=== PATIENT | female | born 1960 | race Caucasian/White ===

== ENCOUNTER → 2021-09-06 15:10 | Outpatient (BNVA) | payer MEDICARE, MEDICAID, SELFPAY | PROVIDERS: PCP Physician Assistant Medical; Referring Provider Physician Assistant Medical; Visit Provider Internal Medicine Cardiovascular Disease | DX: Z45.09 Encounter for adjustment and management of other cardiac device (principal); Z01.810 Encounter for preprocedural cardiovascular examination; I48.92 Unspecified atrial flutter | CPT/HCPCS: 93005; 99202 ==

== ENCOUNTER 2021-10-17 14:03 | Outpatient (REF) | payer MEDICARE, MEDICAID, SELFPAY ==
[2021-10-17 14:50] LABS: COVID-19 Test Negative (Negative); IDNOW Serial# 16C4AD1C
== END 2021-10-17 14:04 | disposition home or self-care (01) ==
LOC: HO.LAB 14:03
PROVIDERS: Visit Provider Internal Medicine
DX: Z20.822 Contact with and (suspected) exposure to COVID-19 (principal)
CPT/HCPCS: 87635; C9803

== ENCOUNTER → 2021-10-23 08:49 | Outpatient (REF) | payer MEDICARE, MEDICAID, SELFPAY ==
--- NOTE | ~2021-10-23 | NM_ITS ---
Lexiscan Myocardial perfusion study Indication: Preoperative cardiovascular evaluation Technique: The patient was brought in for a Lexiscan perfusion study on 10/23/2021 and was injected 0.4 mg of Lexiscan intravenously. Within a minute of this injection 30 mCi of sestamibi was given intravenously. Images were obtained using the SPECT gamma camera interlaced with the gating device. Images were obtained in supine position. Resting perfusion study was performed on 10/31/2021. Patient was administered 30 mCi of sestamibi intravenously at rest. Images were then obtained in supine position. Total DLP 94mGy-cm. Images were processed with the software and compared side to side in short axis, horizontal long axis and vertical long axis views. Findings: Raw acquisition was reviewed. The stress perfusion study showed diminished tracer uptake in the mid to distal inferior/inferolateral wall. Basal septum. With CT attenuation correction, inferior defect appears to be still present but a bit more distal in the inferior wall. The gated study shows normal LV systolic function with calculated LVEF of 64%. LV cavity is normal in size. The gated study shows normal wall thickening and contraction of segments. Resting study shows diminished tracer uptake in the mid inferior/inferolateral wall. This seems improved with CT attenuation correction but there is a distal inferolateral defect noted. Gating at rest reveals normal wall motion with ejection fraction at 66%. The findings are consistent with fixed defect in the mid to distal inferior/inferolateral wall.. NM/NM jay perf SPECT rest & str Impression: 1. Myocardial perfusion imaging study shows fixed mid to distal inferior/inferolateral defect. Possibly artifactual as the gating appears unremarkable. 2. Gated LVEF is 64% during stress and 66% during rest. 3. Transient ischemic dilatation not present. EKG component of the test reported separately.
--- NOTE | 2021-10-23 08:53 | CA_ITS ---
Acquisition Time: 2021-10-23 09:00:14 Total Exercise Time: 00:02:00 Test Indications: Abnormal ECG Medications: ELIQUIS OMEPRAZOLE Protocol: LEXISCAN Max HR: 093 BPM 58% of Pred: 160 BPM Max BP: 132/074 mmHG Max Work Load: 1.0 METS Pharmacological stress test with Lexiscan injection while sitting and moving left arm, without anginal symptoms, with isolated PAC, with normotensive response to injection, with nondiagnostic EKG for ischemia. In recovery she reported lightheadedness and shortness of breath which was treated with Aminophylline 75 mg IVP to reverse Lexiscan with resolution of symptoms. Nuclear images pending. Test reviewed with Dr Young. Referred By: Kulwinder Young Overread By: KEILA MARQUEZ
== END ==
LOC: HO.CARD 08:49
PROVIDERS: Visit Provider Internal Medicine Cardiovascular Disease
DX: Z01.810 Encounter for preprocedural cardiovascular examination (principal); Z79.02 Long term (current) use of antithrombotics/antiplatelets; Z79.899 Other long term (current) drug therapy
CPT/HCPCS: 78452; 93017; A9500; J0280; J2785

== ENCOUNTER → 2021-11-10 09:32 | Outpatient (BNVA) | payer MEDICARE, MEDICAID, SELFPAY | PROVIDERS: PCP Physician Assistant Medical; Referring Provider Physician Assistant Medical; Visit Provider Internal Medicine Cardiovascular Disease | DX: Z45.09 Encounter for adjustment and management of other cardiac device (principal) | CPT/HCPCS: 99212 ==

== ENCOUNTER 2021-11-28 13:47 | Emergency (ER) | payer MEDICARE, MEDICAID, SELFPAY | END 2021-11-28 16:21 | disposition left against medical advice (07) | PROVIDERS: Emergency Provider Emergency Medicine | DX: R10.9 Unspecified abdominal pain (principal) ==

== ENCOUNTER 2022-03-20 13:12 | Outpatient (REF) | payer MEDICARE, MEDICAID, SELFPAY ==
[2022-03-20 16:25] LABS: Basophils Absolute Auto 0.1 X10*3/uL (0.0-0.2); Basophils Percent Auto 0.6 % (0-2); Eosinophils Absolute Auto 0.3 X10*3/uL (0.0-0.4); Eosinophils Percent Auto 3.9 % (0-4); Hematocrit 39.1 % (37.0-47.0); Imm Gran Abs Auto 0.02 X10*3/uL (0.00-0.03); Imm Gran Pct Auto 0.2 % (0.0-0.4); Lymphocytes Absolute Auto 3.2 X10*3/uL (1.2-4.9); Lymphocytes Percent Auto 38.4 % (20-40); MANUAL DIFF FLAG NO; Mean Corpuscular HGB Conc 30.7 g/dl (31.0-35.0); Mean Corpuscular Hemoglobin 26.7 pg (27.0-33.0); Mean Corpuscular Volume 86.9 fL (80.0-98.0); Mean Platelet Volume 10.2 fL (9.4-12.3); Monocytes Absolute Auto 0.8 X10*3/uL (0.1-1.2); Monocytes Percent Auto 10.2 % (2-11); Neutrophils Absolute Auto 3.8 x10*3/uL (2.0-8.3); Neutrophils Percent Auto 46.7 % (45-73); Platelet Count 286 X10*3/uL (160-400); Red Cell Distribution Width 14.6 % (11.0-16.0); White Blood Count 8.2 X10*3/uL (4.8-10.8)
[2022-03-20 17:21] LABS: Erythrocyte Sedimentation Rate 17 MM/HR (0-20)
[2022-03-20 17:52] LABS: C Reactive Protein 0.24 mg/dL (< or = 0.50)
== END 2022-03-20 13:13 | disposition home or self-care (01) ==
LOC: HO.HMGCLNP 13:12
PROVIDERS: Visit Provider Internal Medicine Infectious Disease
DX: M00.9 Pyogenic arthritis, unspecified (principal)
CPT/HCPCS: 85025; 85652; 86140

== ENCOUNTER → 2023-01-17 14:30 | Outpatient (BNVA) | payer MEDICARE, MEDICAID, SELFPAY | PROVIDERS: Visit Provider Internal Medicine Cardiovascular Disease | DX: I48.92 Unspecified atrial flutter (principal); I45.6 Pre-excitation syndrome; F17.210 Nicotine dependence, cigarettes, uncomplicated; Z95.818 Presence of other cardiac implants and grafts | CPT/HCPCS: 93005; 99212 ==

== ENCOUNTER 2023-07-24 12:44 | Outpatient (REF) | payer MEDICARE, MEDICAID, SELFPAY ==
--- NOTE | 2023-07-24 16:27 | MHC.AU.HAS ---
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 Moderate sensorineural hearing loss in the left ear. Summary: Laura visited the office today for an audiologic evaluation. She reported that she has been experiencing difficulty with her hearing for about a year now. She frequently has to ask for people to repeat what they said, has a lot of trouble in background noise, and has to turn up the volume on her TV. Given the results of today's testing and the difficulties that Laura has been experiencing, hearing aids were recommended and Laura would like to pursue them. Laura is interested in the option of streaming to her aids through Bluetooth and has an Android phone. We decided on a pair of Phonak Audeo L70-R hearing aids in [place] with 2M receivers. We will request medical clearance from Laura's PCP prior to placing the order and will contact Laura to set up a fitting appointment once the aids arrive. She was encouraged to reach out with any questions she might have in the mean time. Hearing Aid Prescription: Based on the individual?s shared listening needs, communication environments, dexterity, desire for connectivity, and personal preferences, the following prescription for amplification has been made: Right ear: Quantitative Software Engineer: Phonak Model: Audeo L70-R Battery Size: Rechargeable Color: Sand Beige Wrapper Sheeter: 2M Type of Dome: Medium Vented Left ear: Left ear prescription to be same as Right Hearing Aid above: Quantitative Software Engineer: Phonak Model: Audeo L70-R Battery Size: Rechargeable Color: Sand Beige Wrapper Sheeter: 2M Type of Dome: Medium Vented Plan of Care: Patient wishes to purchase hearing aids as prescribed Action Taken/Action Needed: Medical Clearance to be requested from PCP/ENT Hearing Instrument Fitting to be scheduled when materials arrive Primary Diagnosis: H90.A22 SNHL, Unilatearl, Left Ear, W/Restricted Contralateral Hearing Secondary Diagnosis: Signature: Student/Clinical Fellow: Yes: Vladimir Valenzuela, HIS Professor Of French I have reviewed/agreed with student/fellow documentation: Yes Provider: Alina Doll, [facility]
--- NOTE | 2023-07-24 16:29 | MHC.AU.MED ---
Medical Clearance for Hearing Instrumentation Date: 07/24/23 Patient Name: Laura Hickman Date of : 1960 Referring Provider: HELEN Ram We have seen your patient on 07/24/23 and have determined that they are a candidate for amplification (See accompanying report). Specifically, they would benefit from: Hearing aid use in both ears There is a statute that addresses Medical Evaluation Requirements prior to fitting a patient with a hearing aid. According to [place] statute [facility] CMR:6.03(1), (a) General. Except as provided in 265 CMR 6.03(1)(b), a specialty cook shall not sell a hearing aid unless the prospective user has presented to the specialty cook a written statement signed by a licensed physician that states that the patient's hearing loss has been medically evaluated and the patient may be considered a candidate for a hearing aid. The medical evaluation must have taken place within the preceding six months. Please note: Due to the [place] Statute referenced above, we cannot accept a signature other than that of a licensed physician. TOBIAS and HELEN signatures cannot be accepted. I am in agreement with the above recommendation. There is no medical contraindication for hearing instrumentation. Physician Signature Date Physician Name (Printed)
== END 2023-07-24 12:45 | disposition home or self-care (01) ==
LOC: HO.SH 12:44
PROVIDERS: Visit Provider Physician Assistant
DX: Z01.118 Encounter for examination of ears and hearing with other abnormal findings (principal); H90.A22 Sensorineural hearing loss, unilateral, left ear, with restricted hearing on the contralateral side
CPT/HCPCS: 92557; 92567; 92591

== ENCOUNTER 2023-09-06 13:51 | Outpatient (REF) | payer MEDICARE, MEDICAID, SELFPAY ==
--- NOTE | 2023-09-06 14:48 | MHC.AU.HA2 ---
Hearing Instrument Fitting- Adult- Binaural Date of Visit: 09/06/23 Hearing Instruments Dispensed: Right Ear: Kg, Model, Color, Serial Number: Kimi Barksdale L70-R Regina Bloom [id number] Program Control Analyst Repair Warranty: 11/02/2026 Program Control Analyst Loss and Damage Warranty: 11/02/2026 [facility] Service Plan: Battery Size: Rechargeable Environmental Analyst/Slim Tube: 1M Earmold/Dome/CShell/SlimTip: Small Vented Type of Wax Guard: cerustop Left Ear: Kg, Model, Color, Serial Number: Kimi Barksdale L70-R Regina Bloom S#[id number] Program Control Analyst Repair Warranty: 11/02/2026 Program Control Analyst Loss and Damage Warranty: 11/02/2026 [facility] Service Plan: Battery Size: Rechargeable Environmental Analyst/Slim Tube: 1M Earmold/Dome/CShell/SlimTip: Small Vented Type of Wax Guard: cerustop Accessories/Assistive Technology: Phonak chemical worker ease [id number] Summary of Fitting: Laura is here for her hearing aid fitting. Reviewed basic use and care, changing domes, insertion/removal. Verified to NAL-NL2 real ear targets, reduced to 85% exp level as she was uncomfortable with the sound of her own voice. VC active, reviewed how to use. Will pair with phone at follow up visit. Follow up scheduled for 2-3 wks. Recommendations: Recommendations: A hearing instrument follow-up was scheduled. Diagnosis Code(s): Primary Diagnosis: H90.3 Bilateral Sensorineural Hearing Loss Signature: Provider: Genesis Drew, [facility]
== END 2023-09-06 13:52 | disposition home or self-care (01) ==
LOC: HO.HAP 13:51
PROVIDERS: Visit Provider Internal Medicine
DX: Z46.1 Encounter for fitting and adjustment of hearing aid (principal); H90.3 Sensorineural hearing loss, bilateral
CPT/HCPCS: V5011; V5020; V5160; V5261

== ENCOUNTER 2023-12-12 09:20 | Outpatient (REF) | payer MEDICARE, MEDICAID, SELFPAY ==
--- NOTE | ~2023-12-12 | XR_ITS ---
EXAM: X-RAYS, BILATERAL KNEES CLINICAL INFORMATION: Pain in bilateral knees. COMPARISON: None available. TECHNIQUE: 3 views of each knee. FINDINGS: RIGHT KNEE: The bones are diffusely demineralized. Trace suprapatellar effusion. Yulziaiy-kd-qrjoyi degenerative changes in the medial compartment with joint space narrowing and medial marginal osteophytes as well as subchondral sclerosis. Small lateral and posterior patellar osteophytes. LEFT KNEE: No significant joint effusion. Bones are diffusely demineralized. Eeuefwal-jl-slhpfz medial compartment space narrowing with subchondral sclerosis. Small tricompartmental osteophytes. XR/XR knee RT 3V IMPRESSION: Zcuybaxn-vu-iqiorn degenerative changes bilateral knees, most notable in the medial compartments.
--- NOTE | ~2023-12-12 | XR_ITS ---
EXAM: X-RAYS, BILATERAL KNEES CLINICAL INFORMATION: Pain in bilateral knees. COMPARISON: None available. TECHNIQUE: 3 views of each knee. FINDINGS: RIGHT KNEE: The bones are diffusely demineralized. Trace suprapatellar effusion. Bmfhakre-no-smenfz degenerative changes in the medial compartment with joint space narrowing and medial marginal osteophytes as well as subchondral sclerosis. Small lateral and posterior patellar osteophytes. LEFT KNEE: No significant joint effusion. Bones are diffusely demineralized. Udbogrqk-lo-xnhfon medial compartment space narrowing with subchondral sclerosis. Small tricompartmental osteophytes. XR/XR knee LT 3V IMPRESSION: Xfudscgf-kb-tmkomh degenerative changes bilateral knees, most notable in the medial compartments.
== END 2023-12-12 09:21 | disposition home or self-care (01) ==
LOC: HO.HOSX 09:20
PROVIDERS: Visit Provider Orthopaedic Surgery
DX: M17.0 Bilateral primary osteoarthritis of knee (principal)
CPT/HCPCS: 73562; 99202

== ENCOUNTER 2023-12-12 12:50 | Outpatient (AMB) | payer MEDICARE, MEDICAID, SELFPAY ==
[2023-12-12 12:51] VITALS: BMI 35.8
--- NOTE | 2023-12-12 12:51 | A.OFFVIS_ITS ---
Intake Vital Signs 12/12/23 12:51 Height 5 ft 3 in Weight 202 lb BMI 35.8 Intake Visit Reasons: Bilateral knee pain Intake Note: Laura is a 63 year old female who presents with bilateral knee pains, right greater than left. The patient describes her pain as sharp and severe in nature, 8/10. Her pain has gotten worse over the last few years in spite of continued non operative treatments. She has had both cortisone injections and viscosupplementation injections which gave her minimal relief. The patient has tried Tylenol which gives her minimal relief. She has not able to take anti- inflammatory medicines because she is on Eliquis. She has done physical therapy exercises which aggravated her pain. The patient has difficulty walking even short distances because of her pains. At this point her right knee pain is interfering with her activities of daily living and ability to sleep well through the night. Allergies pravastatin Allergy (Mild, Verified 12/12/23 13:06) rash Medication List - Last Reconciled 12/12/23 by Richie Calero MD acyclovir 400 mg PO DAILY albuterol sulfate 90 mcg/actuation (Ventolin HFA) 0 mcg inhalation apixaban (Eliquis) 5 mg PO BID bupropion HCl 300 mg PO QAM docusate sodium 100 mg PO DAILY fluticasone propionate 110 mcg/actuation (Flovent HFA) 2 puffs inhalation BID gabapentin 600 mg PO TID lamotrigine 200 mg PO DAILY omeprazole 20 mg PO BID oxycodone 15 mg PO Q6H PRN oxycodone ER (OxyContin) 60 mg PO BID pedi multivit 194-kcfz-ksl K1 18 mg iron- 10 mcg (Cerovite Jr) 1 tab PO DAILY sennosides (senna) 8.6 mg PO BID trazodone 100 mg PO BEDTIME PRN zolpidem 10 mg PO BEDTIME PRN PFSH Medical History (Updated 12/12/23 @ 13:23 by Richie Calero MD) Paroxysmal atrial flutter Status post placement of implantable loop recorder WPW (Usoev-Nevciojop-Hfrum syndrome) Surgical History (Updated 12/12/23 @ 13:13 by Vanessa Douglass CMA) History of hip surgery History of hip surgery History of back surgery Hx of neck surgery History of open heart surgery Family History Father HTN (hypertension) Mother HTN (hypertension) Social History (Updated 12/12/23 @ 13:10 by Vanessa Douglass CMA) Patient Tobacco Use Status: Current everyday Tobacco user Current occupational status: disabled Current occupation: Right hand dominate Physical Exam Vital Signs: BMI result Body Mass Index 35.8 Const Other: Well-nourished well-developed very friendly female awake alert and oriented x3 in no acute distress Extrem Other: Bilateral lower extremity examination shows good capillary refill, no skin lesions noted, normal sensation light touch Bilateral knee examination shows minimal effusions, palpable crepitus with range of motion, pain with range of motion, range of motion from -3 degrees to 115 degrees, no instability Results Reviewed Results Reviewed: X-rays of the patient's bilateral knees taken today show end-stage degenerative joint disease with grade 4 [id number]-hg-dtvf arthritis in the medial compartments, subchondral sclerosis, osteophyte formation, no acute bony abnormalities Assessment & Plan Assessment & Plan (1) Arthritis of left knee: Code(s): M17.12 - Unilateral primary osteoarthritis, left knee (2) Arthritis of right knee: Code(s): M17.11 - Unilateral primary osteoarthritis, right knee (3) Pain in both knees: Code(s): M25.561 - Pain in right knee; M25.562 - Pain in left knee Plan Ms. Hickman presents with bilateral knee pains, right greater than left, due to end-stage degenerative joint disease. I had a lengthy discussion with the patient regarding the treatment options. At this point she has failed continued non operative treatments. The risks and benefits of right total knee replacement surgery were discussed at length with the patient. The patient wishes to proceed with surgery. She will be scheduled for next available date. If her left knee pain does become more severe than is her right at the time of her surgery we could certainly proceed with left total knee replacement surgery 1st. I will see the patient back just prior to her surgery to answer any final questions that she might have. The patient will follow-up as instructed. I spent 22 minutes in reviewing the patient's records and imaging studies, seeing the patient and documenting in the medical record. Orders: Orders XR knee LT 3V Today M25.562 - Pain in left knee XR knee RT 3V Today M25.561 - Pain in right knee Coding Level of Care Code New Pt Level 2 (49162) Diagnoses Arthritis of left knee M17.12 Arthritis of right knee M17.11 Pain in both knees M25.561; M25.562
== END 2023-12-12 13:23 | disposition home or self-care (01) ==
PROVIDERS: Visit Provider Orthopaedic Surgery
DX: M17.0 Bilateral primary osteoarthritis of knee (principal)
CPT/HCPCS: 99202

== ENCOUNTER 2024-05-25 12:56 | Outpatient (AMB) | payer MEDICARE, MEDICAID, SELFPAY ==
--- NOTE | 2024-05-25 12:59 | MHC.OFFVIS ---
Vital Signs 05/25/24 13:00 Height 5 ft 3 in Weight 202 lb BMI 35.8 Intake Visit Reasons: New prob - B/L hip pain Intake Note: Laura is a 64 year old female who presents today for a new problem visit with complaints of bilateral hip pain. Patient was previously seen with Dr. Calero and will be moving forward with Left TKA with him. Patient reports that she has had history of bilateral hip replacements, Left hip pain worse than right. Allergies pravastatin Allergy (Mild, Verified 05/25/24 13:00) rash HPI HPI New prob - B/L hip pain: Details: Laura is a 64 year old female who presents today for a new problem visit with complaints of bilateral hip pain. Patient was previously seen with Dr. Calero and will be moving forward with Left TKA with him. Patient reports that she has had history of bilateral hip replacements, Left hip pain worse than right. [facility] Medical History (Updated 12/12/23 @ 13:23 by Richie Calero MD) Paroxysmal atrial flutter Status post placement of implantable loop recorder WPW (Kcjhy-Eyssupdht-Lomjp syndrome) Surgical History (Updated 05/25/24 @ 13:24 by Sheldon aHdley MD) History of hip surgery History of hip surgery History of back surgery Hx of neck surgery History of open heart surgery Family History Father HTN (hypertension) Mother HTN (hypertension) Social History (Updated 12/12/23 @ 13:10 by Vanessa Douglass CMA) Patient Tobacco Use Status: Current everyday Tobacco user Current occupational status: disabled Current occupation: Right hand dominate Physical Exam Vital Signs: BMI result Body Mass Index 35.8 Extrem Other: + start up pain left thigh. Mild left groin pain Assessment & Plan Assessment & Plan (1) History of hip surgery: Comment: Left Code(s): Z98.890 - Other specified postprocedural states Category: Surgical Plan: Radiographs and labs and will see to review later than the week. Orders: Orders XR pelvis 1-2V 05/25/24 M25.559 - Pain in unspecified hip Erythrocyte Sedimentation Rate 05/25/24 Z98.890 - Other specified postprocedural states C Reactive Protein 05/25/24 Z98.890 - Other specified postprocedural states Coding Level of Care Code Est Pt Level 3 (97018) Diagnoses History of hip surgery Z98.890
[2024-05-25 13:00] VITALS: BMI 35.8
== END 2024-05-25 13:25 | disposition home or self-care (01) ==
PROVIDERS: Visit Provider Orthopaedic Surgery
DX: M25.552 Pain in left hip (principal)
CPT/HCPCS: 99213

== ENCOUNTER 2024-05-25 12:56 | Outpatient (REF) | payer MEDICARE, MEDICAID, SELFPAY | END 2024-05-25 12:57 | disposition home or self-care (01) | LOC: HO.LAB 12:56 | PROVIDERS: PCP Physician Assistant Medical; Visit Provider Orthopaedic Surgery | DX: M25.559 Pain in unspecified hip (principal); Z98.890 Other specified postprocedural states | CPT/HCPCS: 99212 ==

== ENCOUNTER 2024-05-28 14:19 | Outpatient (REF) | payer MEDICARE, MEDICAID, SELFPAY ==
--- NOTE | ~2024-05-28 | XR_ITS ---
EXAMINATION: XR PELVIS CLINICAL INFORMATION: Pain hip COMPARISON: 07/23/2022 TECHNIQUE: 2 AP views of the pelvis. FINDINGS: Redemonstration of bilateral total hip arthroplasties. Hardware appears intact. Alignment maintained. Redemonstration of fixation hardware in the lower lumbar spine. XR/XR pelvis 1-2V IMPRESSION: Redemonstration of bilateral total hip arthroplasties. Hardware appears intact. Alignment maintained. Electronically signed by: Cheyenne Parker MD 06/17/2024 12:23 PM EDT
[2024-05-28 15:35] LABS: C Reactive Protein 1.29 mg/dL (< or = 0.50)
[2024-05-28 15:37] LABS: Erythrocyte Sedimentation Rate 13 MM/HR (0-20)
== END 2024-05-28 14:20 | disposition home or self-care (01) ==
LOC: HO.LAB 14:19
PROVIDERS: PCP Physician Assistant Medical; Visit Provider Orthopaedic Surgery
DX: M25.559 Pain in unspecified hip (principal); Z98.890 Other specified postprocedural states
CPT/HCPCS: 36415; 72170; 85652; 86140

== ENCOUNTER 2024-05-29 12:30 | Outpatient (AMB) | payer MEDICARE, MEDICAID, SELFPAY ==
--- NOTE | 2024-05-29 12:35 | MHC.OFFVIS ---
Intake Visit Reasons: OV B/L hip pain Intake Note: Laura is a 64 year old female who presents today for a follow up of bilateral hip pain. History of bilateral hip replacements, Left hip pain worse than right. Patient reports that her symptoms are about the same with no changes. She is currently being weaned of her Oxycontin and Oxycodone Allergies pravastatin Allergy (Mild, Verified 05/25/24 13:00) rash HPI HPI OV B/L hip pain: Details: Laura comes in today after having got an ESR and a CRP and radiographs. She has a history of 2 hip surgeries most recently last May where she had a revision hip arthroplasty for infection. She states she is doing well for couple of months but over the last several months she started having pretty severe pain that is limiting her function. She can not walk well. She has been seeing Dr. Spence and is tentatively planning on knee replacement surgery. I have been trying to rule out left hip infection prior to sent surgery so there are no unnecessary risks when considering knee arthroplasty. She denies fevers and chills but her CRP was elevated significantly and her ESR was normal. [facility] Medical History (Updated 05/29/24 @ 14:15 by Sheldon Hadley MD) Paroxysmal atrial flutter Status post placement of implantable loop recorder WPW (Dpmcr-Etugkxkmt-Sqwij syndrome) Surgical History (Updated 05/29/24 @ 14:15 by Sheldon Hadley MD) History of hip surgery History of hip surgery History of back surgery Hx of neck surgery History of open heart surgery Family History Father HTN (hypertension) Mother HTN (hypertension) Social History (Updated 12/12/23 @ 13:10 by Vanessa Douglass CMA) Patient Tobacco Use Status: Current everyday Tobacco user Current occupational status: disabled Current occupation: Right hand dominate Physical Exam Extrem Other: There is tenderness over the greater trochanter and pain with impingement testing with a antalgic gait. She does have bilateral knee pain as well. There is no pain with gentle passive range of motion of the hip Results Reviewed Results Reviewed: ESR: 13 wnl CRP: 1.29 (nl<.5) Radiographs demonstrate left total hip arthroplasty in appropriate position with no evidence of osteolysis or loosening. 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 She has an elevated CRP and pain. I recommend hip aspiration. I discussed this with her as well as the procedure and the risks, benefits and alternatives. She would like to proceed forward. I think it is reasonable to get her started on physical therapy as well. (2) Status post bilateral total hip replacement: Code(s): Z96.643 - Presence of artificial hip joint, bilateral Category: Surgical Plan: Orders: Orders PT Evaluation and Treatment Today M76.32 - Iliotibial band syndrome, left leg, Z96.643 - Presence of artificial hip joint, bilateral Coding Level of Care Code Est Pt Level 4 (46060) Diagnoses History of hip surgery Z98.890 Status post bilateral total hip replacement Z96.643
== END 2024-05-29 12:54 | disposition home or self-care (01) ==
PROVIDERS: Visit Provider Orthopaedic Surgery
DX: M25.452 Effusion, left hip (principal); Z96.643 Presence of artificial hip joint, bilateral
CPT/HCPCS: 99214

== ENCOUNTER → 2024-05-29 12:30 | Outpatient (BNVA) | payer MEDICARE, MEDICAID, SELFPAY | PROVIDERS: Visit Provider Orthopaedic Surgery | DX: M25.551 Pain in right hip (principal); M25.552 Pain in left hip; Z96.643 Presence of artificial hip joint, bilateral | CPT/HCPCS: 99212 ==

== ENCOUNTER 2024-06-04 15:05 | Outpatient (AMB) | payer MEDICARE, MEDICAID, SELFPAY ==
--- NOTE | 2024-06-04 15:06 | A.OFFVIS_ITS ---
Intake Visit Reasons: OV - B/L knee Pain Intake Note: Laura is a 63 year old female who presents with bilateral knee pains, right greater than left. The patient describes her pain as sharp and severe in nature, 8/10. Her pain has gotten worse over the last few years in spite of continued non operative treatments. She has had both cortisone injections and viscosupplementation injections which gave her minimal relief. The patient has tried Tylenol which gives her minimal relief. She has not able to take anti- inflammatory medicines because she is on Eliquis. She has done physical therapy exercises which aggravated her pain. The patient has difficulty walking even short distances because of her pains. At this point her right knee pain is interfering with her activities of daily living and ability to sleep well through the night. Allergies pravastatin Allergy (Mild, Verified 06/04/24 15:07) rash Medication List - Last Reconciled 06/04/24 by Richie Calero MD acyclovir 400 mg PO DAILY albuterol sulfate 90 mcg/actuation (Ventolin HFA) 0 mcg inhalation apixaban (Eliquis) 5 mg PO BID bupropion HCl XL 300 mg PO QAM celecoxib 200 mg PO DAILY docusate sodium 100 mg PO DAILY fluticasone propionate 110 mcg/actuation (Flovent HFA) 2 puffs inhalation BID lamotrigine 200 mg PO DAILY melatonin 3 mg PO QPM omeprazole 20 mg PO BID oxycodone 15 mg PO Q6H PRN oxycodone ER (OxyContin) 30 mg PO BID oxycodone ER (OxyContin) 30 mg PO BID pedi multivit [id number]-oti K1 18 mg iron- 10 mcg (Cerovite Jr) 1 tab PO DAILY rosuvastatin 10 mg PO BEDTIME sennosides (senna) 8.6 mg PO BID terbinafine HCl 250 mg PO DAILY tizanidine 4 mg PO BID trazodone 100 mg PO BEDTIME PRN zolpidem 10 mg PO BEDTIME PRN PFSH Medical History Paroxysmal atrial flutter Status post placement of implantable loop recorder WPW (Nhkvv-Osjoxdmwe-Prhxq syndrome) Surgical History History of hip surgery History of hip surgery History of back surgery Hx of neck surgery History of open heart surgery Family History Father HTN (hypertension) Mother HTN (hypertension) Social History Patient Tobacco Use Status: Current everyday Tobacco user Current occupational status: disabled Current occupation: Right hand dominate Physical Exam Const Other: Well-nourished well-developed very friendly female awake alert and oriented x3 in no acute distress Extrem Other: Bilateral lower extremity examination shows good capillary refill, no skin lesions noted, normal sensation light touch Right knee examination shows a minimal effusion, palpable crepitus with range of motion, pain with range of motion, range of motion from -3 degrees to 115 degrees, no instability Results Reviewed Results Reviewed: X-rays of the patient's right knee show end-stage degenerative joint disease with grade 4 snco-fk-kajy arthritis, subchondral sclerosis, osteophyte formation, no acute bony abnormalities Assessment & Plan Assessment & Plan (1) Arthritis of right knee: Code(s): M17.11 - Unilateral primary osteoarthritis, right knee Category: Medical Plan Ms. Hickman presents with progressively worsening right knee pain due to end- stage degenerative joint disease. I had a lengthy discussion with the patient regarding the treatment options. At this point she appears to be failing continued non operative treatments. The risks and benefits of right total knee replacement surgery were discussed at length with the patient. The patient wishes to proceed with surgery. She will contact my office to pick a surgery date. I will see her back 1 week prior to her surgery to answer any final questions that she might have. She will follow-up as instructed. I spent 22 minutes in reviewing the patient's records and imaging studies, seeing the patient and documenting in the medical record. Coding Level of Care Code Est Pt Level 3 (26226) Complex EM visit Add On G2211 Diagnoses Arthritis of right knee M17.11
== END 2024-06-04 15:22 | disposition home or self-care (01) ==
PROVIDERS: Visit Provider Orthopaedic Surgery
DX: M17.11 Unilateral primary osteoarthritis, right knee (principal)
CPT/HCPCS: 99214; G2211

== ENCOUNTER → 2024-06-04 15:05 | Outpatient (BNVA) | payer MEDICARE, MEDICAID, SELFPAY | PROVIDERS: Visit Provider Orthopaedic Surgery | DX: M17.11 Unilateral primary osteoarthritis, right knee (principal); M25.562 Pain in left knee | CPT/HCPCS: 99212 ==

== ENCOUNTER 2024-06-10 13:41 | Day surgery (SDC) | payer MEDICARE, MEDICAID, SELFPAY ==
--- NOTE | 2024-06-09 10:51 | P.CONAN_ITS ---
HPI - Anesthesia Eval Consult details Narrative: 64yo F for Left Hip Aspiration Follows [facility] Cardiology yearly for PAF, WPW. ILR in situ Last office visit 2022, stable Eliquis for afib PMFSH Active Problems Active Problems: All Active Problems Iliotibial band syndrome, left leg (Acute) Status post bilateral total hip replacement (Acute) History of hip surgery (Acute) History of hip surgery (Acute) Arthritis of right knee (Acute) Arthritis of left knee (Acute) Right knee pain (Acute) Left knee pain (Acute) Paroxysmal atrial flutter (Acute) Status post placement of implantable loop recorder (Acute) Past Medical History Medical History Paroxysmal atrial flutter Status post placement of implantable loop recorder WPW (Bvrfj-Qzsqtvhxv-Otxcu syndrome) Family History Family History Father HTN (hypertension) Mother HTN (hypertension) Surgical History Surgical History History of hip surgery History of hip surgery History of back surgery Hx of neck surgery History of open heart surgery Social History Social History Patient Tobacco Use Status: Current everyday Tobacco user Current occupational status: disabled Current occupation: Right hand dominate Meds Allergies Allergy/AdvReac Type Severity Reaction Status Date / Time pravastatin Allergy Mild rash Verified 06/04/24 15:07 Home Medications ?Medication ?Instructions ?Recorded ?Confirmed ?Last Taken ?Type acyclovir 400 mg tablet 400 mg PO DAILY 09/06/21 06/04/24 Unknown History apixaban 5 mg tablet (Eliquis) 5 mg PO BID 09/06/21 06/04/24 Unknown History bupropion HCl 300 mg 24 hr tablet, 300 mg PO QAM 09/06/21 06/04/24 Unknown History extended release docusate sodium 100 mg capsule 100 mg PO DAILY 09/06/21 06/04/24 Unknown History lamotrigine 200 mg tablet 200 mg PO DAILY 09/06/21 06/04/24 Unknown History omeprazole 20 mg tablet,delayed 20 mg PO BID 09/06/21 06/04/24 Unknown History release pediatric multivit no.158-iron fum 1 tab PO DAILY 09/06/21 06/04/24 Unknown History 18 mg-vit K1 10 mcg chewable tablet (Cerovite Jr) sennosides 8.6 mg capsule (senna) 8.6 mg PO BID 09/06/21 06/04/24 Unknown History trazodone 100 mg tablet 100 mg PO BEDTIME PRN 09/06/21 06/04/24 Unknown History zolpidem 10 mg tablet 10 mg PO BEDTIME PRN 09/06/21 06/04/24 Unknown History oxycodone 15 mg tablet 15 mg PO Q6H PRN pain 11/10/21 06/04/24 Unknown History albuterol sulfate 90 mcg/actuation 0 mcg inhalation 01/17/23 06/04/24 Unknown History aerosol inhaler (Ventolin HFA) fluticasone propionate 110 2 puff inhalation BID 01/17/23 06/04/24 Unknown History mcg/actuation HFA aerosol inhaler (Flovent HFA) celecoxib 200 mg capsule 200 mg PO DAILY 06/04/24 06/04/24 Unknown History melatonin 3 mg tablet 3 mg PO QPM 06/04/24 06/04/24 Unknown History oxycodone 30 mg tablet,crush 30 mg PO BID 06/04/24 06/04/24 Unknown History resistant,extended release 12 hr (OxyContin) oxycodone 60 mg tablet,crush 30 mg PO BID 06/04/24 06/04/24 Unknown History resistant,extended release 12 hr (OxyContin) rosuvastatin 10 mg tablet 10 mg PO BEDTIME 06/04/24 06/04/24 Unknown History terbinafine HCl 250 mg tablet 250 mg PO DAILY 06/04/24 06/04/24 Unknown History tizanidine 4 mg tablet 4 mg PO BID 06/04/24 06/04/24 Unknown History Exam Narrative Narrative: EKG 2022 normal sinus rhythm with sinus arrhythmia with no pre-excitation Assessment and Plan Assessment Anesthesia Assessment: Chart Reviewed
--- NOTE | ~2024-06-10 | FL_ITS ---
EXAMINATION: FLUOROSCOPY GUIDANCE FOR NEEDLE PLACEMENT CLINICAL INFORMATION: Left hip aspiration. COMPARISON: None available. TECHNIQUE: Fluoroscopy and spot films were provided to Dr. Sheldon Hadley during a hip aspiration. FINDINGS: Total hip prosthesis is visualized. A needle is positioned over the hip joint. FLUOROSCOPY TIME: 1. 0.1 minute DOSE AREA PRODUCT: 0.0774 uGy-m2 (microgray-meter squared) FL/FL guidance in OR IMPRESSION: Fluoroscopy-guided left total hip arthroplasty. Electronically signed by: Marcos Rosenberg MD 06/11/2024 09:16 AM EDT
--- OUTSIDE RECORDS SUMMARY | 2024-06-10 13:44 | XMS_ITS | Continuity of Care Document ---
Author Organization [facility] Address [address] [place] [address] [address]orene packer, [address] [place] [address]- Care Team Providers Care Automobile Repair Service Estimator Name Role Phone Maria R MATT, Luis Miguel Primary Care Physician Encounter [facility] [place] Date(s): 05/09/23 - 06/08/[address], [address] [place], [place] [address] Allergies, Adverse Reactions, Alerts Substance Reaction Severity Status pravastatin rash Active Immunizations Given and Recorded Vaccine Date Status Refusal Reason pneumococcal 23-valent vaccine 08/17/14 Given Medications acetaminophen-HYDROcodone 325 mg-5 mg oral tablet 1 tablet, By Mouth, Every 6 hours, PRN Pain , Severe, For breakthrough pain, # 30 tablet, 0 Refills, Maintenance, 04/08/18 9:23:42 EDT, Tablet Start Date: 04/08/18 Status: Ordered Acyclovir Tablet 400 mg, By Mouth, Daily, Maintenance, 05/22/12 13:37:53 EDT Start Date: 05/22/12 Status: Ordered Ambien 10 mg oral tablet 1 tablet = 10 mg, By Mouth, Daily at bedtime, PRN for sleep, 0 Refills, Maintenance, Tablet Start Date: 05/22/12 Status: Ordered Aspirin Tablet 81 mg, By Mouth, Daily, Refills 0, Maintenance, 05/24/16 14:43:40 Start Date: 05/24/16 Status: Ordered Calcium 500+D 1 tablet, By Mouth, 2 times a day, 0 Refills, Maintenance, 05/24/16 14:41:04 Start Date: 05/24/16 Status: Ordered docusate sodium 100 mg oral capsule 1 capsule = 100 mg, By Mouth, 2 times a day, # 60 capsule, 0 Refills, Maintenance, 11/30/14 14:07:07, Capsule Start Date: 11/30/14 Status: Ordered Eliquis 5 mg oral tablet 1 tablet = 5 mg, By Mouth, 2 times a day, # 60 tablet, 0 Refills, Maintenance, 03/27/18 8:44:49 EDT, Tablet Start Date: 03/27/18 Status: Ordered Flovent HFA 110 mcg/inh inhalation aerosol with adapter 1 PUFF, Inhalation, 2 times a day, PRN Wheezing/Shortness of Breath, 0 Refills, Maintenance, 08/12/12 8:39:37 Start Date: 08/12/12 Status: Ordered gabapentin 300 mg oral capsule = 600 mg, By Mouth, 2 times a day, 0 Refills, Maintenance, 08/12/12 8:36:10 EST Start Date: 08/12/12 Status: Ordered gabapentin 600 mg oral tablet 2 TABS, By Mouth, Daily at bedtime, 0 Refills, Maintenance, 05/24/16 14:36:45 Start Date: 05/24/16 Status: Ordered Multivitamin 1 tablet, By Mouth, Daily, 0 Refills, Maintenance Start Date: 05/22/12 Status: Ordered Nitrofurantoin 100 mg, By Mouth, Daily, PRN, Maintenance, Other, 05/24/16 14:39:11 Start Date: 05/24/16 Status: Ordered omeprazole 20 mg oral enteric coated capsule 1 capsule = 20 mg, By Mouth, Daily, 0 Refills, Maintenance, 06/08/14 15:16:46 Start Date: 06/08/14 Status: Ordered oxycodone 15 mg oral tablet 1 tablet = 15 mg, By Mouth, 4 times a day, PRN for pain, 0 Refills, Maintenance, 08/16/14 8:17:37, Tablet Start Date: 08/16/14 Status: Ordered OxyContin = 60 mg, By Mouth, Every 8 hours, 0 Refills, Maintenance, 05/24/16 14:29:07 Start Date: 05/24/16 Status: Ordered ProAir HFA 2 puffs, Inhalation, 4 times a day, 0 Refills, Maintenance Start Date: 08/12/12 Status: Ordered Provera 10 mg oral tablet 10 mg, 1, tablet, By Mouth, Daily, Refills 0, Maintenance, 05/24/16 14:37:44 Start Date: 05/24/16 Status: Ordered tiZANidine 2 mg oral tablet 2 mg, By Mouth, 3 times a day, PRN, # 30 tablet, Refills 0, Tot. Refills 0, Maintenance, Spasm, 04/08/18 9:14:56 EDT, Print Requisition Start Date: 04/08/18 Status: Ordered traZODone 100 mg oral tablet 2 tablets, By Mouth, Daily at bedtime, Refills 0, Maintenance, 05/24/16 14:40:37 EDT Start Date: 05/24/16 Status: Ordered Wellbutrin XL 300 mg/24 hours oral tablet, extended release 1 tablet = 300 mg, By Mouth, Every 24 hours, 0 Refills, Maintenance, 03/27/18 11:25:55 EDT Start Date: 03/27/18 Status: Ordered Problem List Condition Confirmation Course Effective Dates Status Health St atus Informant Atrial flutter Confirmed Active Gallstone Confirmed Active Obesity Confirmed Active Severe obesity (BMI 35.0-39.9) with comorbidity Confirmed Active Social History Social History Type Response Smoking Status Current every day cabrera fox; Type: Cigarettes; Tobacco use times per day: <1/2 pack per day; Number of years: 40; entered on: 08/16/14 Sex Patient Care team information Care Team Personnel Name: Ortega Scott RN Position: [facility] Nurse Member Role: Primary Care Nurse Care Team Related Persons Name: KAT LERNER Address: home [address] [place] [id number] Name: LENY THIBODEAUX Address: home [address] [place] [id number]
--- OUTSIDE RECORDS SUMMARY | 2024-06-10 13:44 | XMS_ITS | Continuity of Care Document ---
Author Organization [facility] Address [address] [place] [address] Dorene packer, [address] [place] [address]- Care Team Providers Care Property Loss Insurance Claim Adjuster Name Role Phone Hosea Enamorado Primary Care Physician Encounter [facility] Date(s): 08/06/23 - 09/05/[address], [address] [place], [place] [address] Allergies, Adverse Reactions, Alerts Substance Reaction Severity Status pravastatin rash Active Immunizations Given and Recorded Vaccine Date Status Refusal Reason pneumococcal 23-valent vaccine 08/17/14 Given Medications Acyclovir Tablet 400 mg, By Mouth, Daily, Maintenance, 05/22/12 13:37:53 EDT Start Date: 05/22/12 Status: Ordered Ambien 10 mg oral tablet 1 tablet = 10 mg, By Mouth, Daily at bedtime, PRN for sleep, 0 Refills, Maintenance, Tablet Start Date: 05/22/12 Status: Ordered Calcium 500+D 1 tablet, By Mouth, 2 times a day, 0 Refills, Maintenance, 05/24/16 14:41:04 Start Date: 05/24/16 Status: Ordered celecoxib 200 mg oral capsule 0 Refills, Maintenance, 07/30/23 14:04:00 EDT, Partial fill upon patient request if the prescription is for a schedule II opioid drug. Start Date: 07/30/23 Status: Ordered docusate sodium 100 mg oral [...] 8:36:10 EST Start Date: 08/12/12 Status: Ordered Melatonin By Mouth, Daily at bedtime, 0 Refills, Maintenance, 08/14/23 17:18:00 EST, Partial fill upon patient request if the prescription is for a schedule II opioid drug. Start Date: 08/14/23 Status: Ordered Multivitamin 1 tablet, By Mouth, [...] Refills, Maintenance Start Date: 08/12/12 Status: Ordered Senna By Mouth, Every other day, 0 Refills, Maintenance, 08/14/23 17:17:00 EST, Partial fill upon patientrequest if the prescription is for a schedule II opioid drug. Start Date: 08/14/23 Status: Ordered traZODone 100 mg oral tablet [...] [facility] at[facility] Informant Atrial flutter Confirmed Active COPD (chronic obstructive pulmonary disease) Confirmed Active Depression Confirmed Active Gallstone Confirmed Active H/O migraine Confirmed Active Obesity Confirmed Active Severe obesity (BMI 35.0-39.9) with comorbidity Confirmed Active Lumbar spinal stenosis Confirmed Active WPW (Sttpn-Ahcmmnyin-Hn ite syndrome)s/p sternotomy ablation Confirmed Active Social History Social History Type Response Smoking Status 5-9 cigarettes (betw een 1/4 to 1/2 pack)/day in last 30 days entered on: 07/30/23 Sex Patient Care team information Care Team Personnel Name: Ortega Scott RN Position: [facility] Nurse Member Role: Primary Care Nurse Name: Hosea Enamorado Position: Reference Physician Member Role: PCP Address: Address: [address] [place] [phone]- Care Team Related Persons Name: KAT LERNER Address: home [address] [place] [address] Name: LENY THIBODEAUX Address: home [address] [place] [id number]
--- OUTSIDE RECORDS SUMMARY | 2024-06-10 13:44 | XMS_ITS | Continuity of Care Document ---
Author Organization [facility] Address [address] [place] [address] [address]orene packer, [address] [place] [address]- Care Team Providers Care Power Saw Mechanic Name Role Phone Hosea Enamorado Primary Care Physician Encounter [facility] Date(s): 08/12/23 - 09/11/[address], [address] [place], [place] [address] Allergies, Adverse Reactions, Alerts Substance [...] Active Lumbar spinal stenosis Confirmed Active WPW (Wdmui-Kxqalfiaq-Sd ite syndrome)s/p sternotomy ablation Confirmed Active Social History Social History Type Response Smoking Status 5-9 cigarettes (betw een 1/4 to 1/2 pack)/day in last 30 days entered on: 07/30/23 Sex Patient Care team information Care Team Personnel Name: Ortega Scott RN Position: [facility] Nurse Member Role: Primary Care Nurse Name: Hosea Enamorado Position: Reference Physician Member Role: PCP Address: Address: [address] [place] [phone]- Care Team Related Persons Name: KAT LERNER Address: home [address] [place] [address] Name: LENY THIBODEAUX Address: home [address] [place] [address]
--- OUTSIDE RECORDS SUMMARY | 2024-06-10 13:44 | XMS_ITS | Continuity of Care Document ---
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 There was no radiologist in attendance. FLUOROSCOPY TIME: 1 second EXPOSURE: 1.51 mGy (reference air kerma) TECHNOLOGIST TIME: 15 minutes FINDINGS: Lateral fluoroscopic views of the lumbar spine with surgical instruments overlying the L3-L4 level.L4-L5 posterior spinal fusion hardware is noted. IMPRESSION: See above. WSN: [id number] Ordering Physician: Dami Stuart Dictated By: Crispin Rai MD Dictated Date/Time: 08/19/23 4:35 pm Reviewed By: Crispin Rai MD Signed By: Crispin Rai MD Signed Date/Time: 08/19/23 4:35 pm Transcribed By: MINGO Transcribed Date/Time: 08/19/23 4:35 pm * Exam Date Time Procedure Performing Provider Status 08/19/23 11:40 AM Spine Single View Abbey Chaudhry; Vanesa (Verified) Notes: (Spine Single View) Reason For Exam: L3-L4 decompression; stenosis RESULT: Spine Single View Spine Single View, C-Arm < 1 Hour INDICATION: Reason: L3-L4 decompression; stenosis COMPARISONS: None TECHNIQUE: Fluoroscopy support was provided. There was no radiologist in attendance. FLUOROSCOPY TIME: 1 second EXPOSURE: 1.51 mGy (reference air kerma) TECHNOLOGIST TIME: 15 minutes FINDINGS: Lateral fluoroscopic views of the lumbar spine with surgical instruments overlying the L3-L4 level.L4-L5 posterior spinal fusion hardware is noted. IMPRESSION: See above. WSN: [id number] Ordering Physician: Dami Stuart Dictated By: Crispin Rai MD Dictated Date/Time: 08/19/23 4:35 pm Reviewed By: Crispin Rai MD Signed By: Crispin Rai MD Signed Date/Time: 08/19/23 4:35 pm Transcribed By: MINGO Transcribed Date/Time: 08/19/23 4:35 pm Vital Signs Most recent to oldest [Reference Range]: 1 2 3 Height 160.02 cm (08/19/23 10:42 AM) 160.02 cm (08/14/23 5:30 PM) Weight 91.82 kg (08/19/23 10:42 AM) 91.82 kg (08/14/23 5:30 PM) Oxygen Saturation [94-100 %] 94 % (08/19/23 4:15 PM) 92 % *L* (08/19/23 3:00 PM) 96 % (08/19/23 2:45 PM) Pulse Rate [55-90 bpm] 84 bpm (08/19/23 10:42 AM) Body Mass Index [18.5-24.99 kg/m2] 35.86 kg/m2 *>HHI* (08/19/23 10:42 AM) 35.86 kg/m2 *>HHI* (08/14/23 5:30 PM) Blood Pressure [90-138/55-84 mm Hg] 107/65mm Hg (08/19/23 4:15 PM) 102/65mm Hg (08/19/23 2:45 PM) 107/65mm Hg (08/19/23 2:30 PM) Respiratory Rate [16-30 br/min] 14 br/min *L* (08/19/23 4:15 PM) 10 br/min *L* (08/19/23 3:00 PM) 14 br/min *L* (08/19/23 2:45 PM) Temperature [96.8-100.4 DegF] 98.4 DegF (08/19/23 4:15 PM) 97.9 DegF (08/19/23 12:00 PM) 97.6 DegF (08/19/23 10:42 AM) Liters per Minute 6 L/min (08/19/23 12:00 PM) Mode of Delivery (Oxygen) Room air (08/19/23 4:15 PM) Room air (08/19/23 2:45 PM) Room air (08/19/23 2:41 PM) Blood pressure sites Arm, left (08/19/23 1:15 PM) Arm, left (08/19/23 12:00 PM) Arm, left (08/19/23 10:42 AM) Temperature Route Temporal (08/19/23 4:15 PM) Temporal (08/19/23 12:00 PM) Temporal (08/19/23 10:42 AM) Dry Weight 92.4 kg (08/19/23 10:42 AM) 91.82 kg (08/14/23 5:30 PM) Weight Obtained Via Patient/family state d (08/14/23 5:30 PM) Dry Weight Obtained Via Standing scale (08/19/23 10:42 AM) Patient/family stated (08/14/23 5:30 PM) Social History Social History Type Response Smoking Status 5-9 cigarettes (betw een 1/4 to 1/2 pack)/day in last 30 days entered on: 07/30/23 Sex Note * Abbey Ferro RN: PERFORM Event Display: Discharge/Transfer Note Hospital Authored Date: [id number] Nursing Discharge Note Entered On: 08/19/2023 16:34 EST Performed On: 08/19/2023 16:34 EST by Abbey Ferro RN Nursing Discharge Note 2 Discharge Time : 08/19/2023 16:33 EST Discharge Level of Care at Discharge : Home/[facility] Patient Left Unit Via : Wheelchair Patient Accompanied Off Unit with : Responsible adult DC Instructions Provided & Signed by Pt : Yes Patient Understands D/C Instructions : Yes Patient Instructions Discharge Signed : Yes Did Pt have Specialty Bed or Wound Vac : No Abbey Ferro RN - 08/19/2023 16:34 EST * Willam Siddiqi: PERFORM, SIGN, VERIFY Event Display: Discharge/Transfer Note Hospital Authored Date: [id number] Patient: YARITZA COREY Age: 63 years Sex: Female : 1960 Associated Diagnoses: None Author: Willam Siddiqi Discharge Information PREOPERATIVE DIAGNOSIS: Lumbar stenosis. POSTOPERATIVE DIAGNOSIS: Same. PROCEDURES PERFORMED: L3-L4 decompression, bilateral. Patient is aware of diagnosis Discharge condition: good Compared to admission: unchanged Functional Status: ambulatory with assistance Discharge Disposition Home: self care, family. Discharge Date 08/19/2023 Admission Date 08/19/2023 Draft of Summary Completed by: Willam Siddiqi. Hospital Course This is a 63-year-old female who was found to have lumbar stenosis at L3-L4. The patient was elected to undergo L4-L5 decompression. The patient tolerated procedure well. Postoperatively, the patient's pain was well controlled. The patient successfully voided and ambulated. The patient was under pain contract with her PCP. The patient was currently on OxyContin 40 mg 3 times a day and oxycodone 15 mg 4 times a day. The patient explained that her primary source for the pain medication was her PCP. In order to maintain her pain contract, we agreed with the patient contacting her PCP for further need of pain medication. Discharge instructions were provided. The plan is to go home today. Discharge Plan Diet/Activity/Patient Education/Follow Up Follow Up with: ; Dami Stuart Please contact the office to confirm your follow-up appointment.. Discharge Disposition Discharge: home. MEDICATION LIST (Selected) Documented Medications Documented Acyclovir Tablet: 400 mg, By Mouth, Daily, Maintenance, 05/22/12 13:37:53 EDT Ambien 10 mg oral tablet: 1 tablet = 10 mg, By Mouth, Daily at bedtime, PRN for sleep, 0 Refills, Maintenance, Tablet Calcium 500+D: 1 tablet, By Mouth, 2 times a day, 0 Refills, Maintenance, 05/24/16 14:41:04 Eliquis 5 mg oral tablet: 1 tablet = 5 mg, By Mouth, 2 times a day, # 60 tablet, 0 Refills, Maintenance, 03/27/18 8:44:49 EDT, Tablet Flovent HFA 110 mcg/inh inhalation aerosol with adapter: 1 PUFF, Inhalation, 2 times a day, PRN Wheezing/Shortness of Breath, 0 Refills, Maintenance, 08/12/12 8:39:37 Melatonin: By Mouth, Daily at bedtime, 0 Refills, Maintenance, 08/14/23 17:18:00 EST, Partial fill upon patient request if the prescription is for a schedule II opioid drug. Multivitamin: 1 tablet, By Mouth, Daily, 0 Refills, Maintenance Nitrofurantoin: 100 mg, By Mouth, Daily, PRN, Maintenance, Other, 05/24/16 14:39:11 OxyContin: = 60 mg, By Mouth, Every 8 hours, 0 Refills, Maintenance, 05/24/16 14:29:07 ProAir HFA: 2 puffs, Inhalation, 4 times a day, 0 Refills, Maintenance Senna: By Mouth, Every other day, 0 Refills, Maintenance, 08/14/23 17:17:00 EST, Partial fill upon patient request if the prescription is for a schedule II opioid drug. Wellbutrin XL 300 mg/24 hours oral tablet, extended release: 1 tablet = 300 mg, By Mouth, Every 24 hours, 0 Refills, Maintenance, 03/27/18 11:25:55 EDT celecoxib 200 mg oral capsule: 0 Refills, Maintenance, 07/30/23 14:04:00 EDT, Partial fill upon patient request if the prescription is for a schedule II opioid drug. gabapentin 300 mg oral capsule: = 600 mg, By Mouth, 2 times a day, 0 Refills, Maintenance, 128:36:10 EST omeprazole 20 mg oral enteric coated capsule: 1 capsule = 20 mg, By Mouth, Daily, 0 Refills, Maintenance, 06/08/14 15:16:46 oxycodone 15 mg oral tablet: 1 tablet = 15 mg, By Mouth, 4 times a day, PRN for pain, 0 Refills, Maintenance, 08/16/14 8:17:37, Tablet traZODone 100 mg oral tablet: 2 tablets, By Mouth, Daily at bedtime, Refills 0, Maintenance, 05/24/16 14:40:37 EDT * Abbey Ferro RN: PERFORM, MODIFY Event Display: Patient Education/Instruction Authored Date: [id number] Inpatient Adult Discharge Instructions [address] [address] Name: YARITZA COREY : 1960 Visit: 08/19/2023 09:13:00 Current Date: 08/19/2023 15:56 Account: [id number] Inpatient Adult Discharge Instructions We would like to thank you for allowing us to assist you with your healthcare needs. The following includes patient education materials and information regarding your injury/illness. Our entire staffstrives to provide an excellent experience for our patients and their families. PLEASE ENSURE YOU FOLLOW-UP PER THE INSTRUCTIONS BELOW! ?? YOUR OPINION IS IMPORTANT TO US! Please complete the survey you may receive by mail or email. Your feedback will be used to make improvements to the healthcare experiences of our patients and their families. Surveys are administered by [employer] ?? If further treatment with your primary care physician or another doctor is recommended, it is important for you to keep the appointment. Call your primary care physician or return to the Emergency Department immediately if your condition worsens, fails to improve, or new symptoms develop. If you need to find a doctor, you can call [facility] Link for a referral at [phone] or toll free at [phone] ([phone]) or log in to [email or web address].. ?? [facility], in keeping with [facility] guidance, no longer requires face masks for staff, patientsor visitors in most situations. Similiar to time spent indoors at other locations, there is the chance that you were exposed to repiratory viruses during your time with us (such as flu or COVID-19). If you develop symptoms concerning for a viral respiratory infection, please seek testing (and treatment if indicated) from your medical provider or home test kit. ?? You can view and manage your care through the patient portal or by using a health care daija of your choosing. [employer] is a website that allows you to securely view your medical information including your hospital discharge summary, office visit summaries, medications and follow-up visits. You can also request appointments, renew medications, and request access to your medical information using a health care daija of your choosing, or just ask a question. You can enroll at [email or web address] or register during your next office visit. You have been discharged from [facility], Patient Care Unit: [facility]. If you have any questions regarding these instructions after you leave, please call us and we will be happy to assist you. [facility] Your Care Team Attending Physician Dami Stuart MD Discharging Providers Willam Siddiqi Reason for Admission [facility] INPT OR Tests Performed Below is a partial list of the tests performed during your hospitalization. You may have had other tests and procedures not included in this list. Please discuss all test results with your provider. XR C-Arm < 1 Hour?-- Results Pending -- You will be contacted within 72 hours with your results. Primary Care Provider Hosea Enamorado Advance Directive Health Care Proxy on File Yes - Health Care Proxy Discharge Vitals Temperature: 97.9 DegF Height: 160.02 cm Pulse Rate: 84 bpm Weight: 91.82 kg Respiratory Rate:??10 br/min??Low Body Mass Index:??35.86 kg/m2??Critical Systolic Blood Pressure: 102 mm Hg Body surface area: 2.02 Diastolic Blood Pressure: 65 mm Hg ?? Oxygen Saturation:??92 %??Low ?? Studies Pending All tests and labs ordered during this hospital stay have been completed unless listed below. Please discuss all pending results with your provider listed above in these instructions. ?? C-Arm < 1 Hour Spine Single View What to do next Instructions From Your Doctor Discharge Orders Scheduled Follow-Up Appointments 2022 11:45 AM EST ?? With: Dami Stuart MD Where: [facility] [address] [place] [address] Drive [address] [place] [address]- Status: Pending You Need to Schedule the Following Appointments Follow Up with?Kenny Stuart Why: Please contact the office to confirm your follow-up appointment. Where: [address] [place] [address], [address] [facility] [place] [address]- Business (1) Discharge Medications YARITZA COREY :1960 Visit Date:08/19/2023 Medications: Please continue your medications until treatment is completed or stopped by your provider. Medications not listed below should be discontinued. Discuss any questions related to medications with your provider. What How Much When Instructions Next Dose Unchanged Acyclovir (Acyclovir Tablet) 400 Milligram Oral Daily Resume as prescribed Unchanged Albuterol (ProAir HFA) 2 puff(s) Inhalation 4 times a day Resume as prescribed Unchanged apixaban (Eliquis 5 mg oral tablet) 1 tab(s) Oral Twice a day Resume as prescribed Unchanged BuPROpion (Wellbutrin XL 300 mg/ 24 hours oral tablet, extended release) 1 tab(s) Oral Every 24 hours Resume as prescribed Unchanged Calcium And Vitamin D Combination (Calcium 500+D) 1 tab(s) Oral Twice a day Resume as prescribed Unchanged Celecoxib (celecoxib 200 mg oral capsule) Resume as prescribed Unchanged Docusate (docusate sodium 100 mg oral capsule) 1 capsule Oral Twice a day Resume as prescribed Unchanged Fluticasone (Flovent HFA 110 mcg/ inh inhalation aerosol with adapter) 1 PUFF Inhalation Twice a day as needed for Wheezing/Shortness of Breath Resume as prescribed Unchanged Gabapentin (gabapentin 300 mg oral capsule) 600 Milligram Oral Twice a day Resume as prescribed Unchanged Melatonin Oral Daily at Bedtime Resume as prescribed Unchanged Multivitamin 1 tab(s) Oral Daily Resume as prescribed Unchanged Nitrofurantoin 100 Milligram Oral Daily as needed for Other Resume as prescribed Unchanged Omeprazole (omeprazole 20 mg oral enteric coated capsule) 1 capsule Oral Daily Resume as prescribed Unchanged Oxycodone (oxycodone 15 mg oral tablet) 1 tab(s) Oral 4 times a day as needed for for pain Resume as prescribed Unchanged Oxycodone (OxyContin) 60 Milligram Oral Every 8 hours Resume as prescribed Unchanged Senna Oral Every other day Resume as prescribed Unchanged Trazodone (traZODone 100 mg oral tablet) 2 tablets Oral Daily at Bedtime Resume as prescribed Unchanged Zolpidem (Ambien 10 mg oral tablet) 1 tab(s) Oral Daily at Bedtime as needed for for sleep Resume as prescribed Test Results Below is a partial list of the most recent Laboratory test results done prior to this discharge. You may have had other tests and procedures not included in this list. Please discuss all test resultswith your provider. Allergies (NKA means No Known Allergies) pravastatin??(rash) Problems Active Problems??(14) ADHD?? Atrial flutter?? COPD (chronic obstructive pulmonary disease)?? Depression?? Gallstone?? H/O migraine?? Lumbar disc disease?? Lumbar spinal stenosis?? Obesity?? CHUCKY suspect?? Severe obesity (BMI 35.0-39.9) with comorbidity?? Tobacco abuse?? WPW (Eyffu-Sidjvgeof-Pxcry syndrome)s/p sternotomy ablation?? WPW - s/p sternotomy/ablation?? Education Materials Below is the list of Educational Leaflet Providered with your Discharge Instructions. Neurosurgery-Lumbar Discharge Instructions?? Valuables and Belongings I fully understand and agree that [facility] accepts no responsibility for all my personal property including clothing, toilet articles, radios, jewelry, dentures, hearing aids, rings, money, or any other property that is in my possession or is brought to me after admission. I understand certain valuables may be placed in a hospital safe for a short period of time. I understand that the hospital is not liable for loss or damage due to accident, fire, or other natural occurrence while said property is in the safe. I accept full responsibility for any personal property that I keep with me, and will not hold the hospital responsible in case of loss or disappearance. I acknowledge that i have been encouraged to send valuables and belongings home. ? Other Discharge Information ? Pulmonary Rehab Status?? Pulmonary Rehab Discharge Status?? Respiratory Rate:??10 br/min??Low ? Common Emergency Awareness Tips IS IT A STROKE? Act FAST and Check for these signs: FACE Does the face look uneven? ARM Does one arm drift down? SPEECH Does their speech sound strange? TIME Call at any sign of stroke ?? Heart Attack Signs Chest discomfort: Most heart attacks involve discomfort in the center of the chest and lasts more than a few minutes, or goes away and comes back. It can feel like uncomfortable pressure, squeezing, fullness or pain. Discomfort in upper body: Symptoms can include pain or discomfort in one or both arms, back, neck, jaw or stomach. Shortness of breath: With or without discomfort. Other signs: Breaking out in a cold sweat, nausea, or lightheaded. Remember, MINUTES DO MATTER. If you experience any of these heart attack warning signs, call to get immediate medical attention! ?? Smoking can increase your chances of developing chronic health problems and can cause harmful effects to other family members in your house. If you smoke, you are strongly encouraged to quit. Please call [facility] Link at [phone] or [phone]) or log in to [email or web address] for referrals to smoking cessation programs. ?? 358 Suicide & Crisis Lifeline is available 22/04 if you or someone you know needs to find a reason to keep living. By calling 875 you'll be connected to a skilled, trained counselor at a crisis center in your area. INPATIENT DISCHARGE INSTRUCTIONS SIGNATURE PAGE LEORAYARITZA Location:[facility] Registration Date and Time:08/19/2023 09:13 EST Primary Care Physician: Hosea Enamorado, Attending Physician: Dami Stuart MD, I YARITAZ COREY, have received the above patient education materials/instructions and have verbalized understanding. If ambulance or transport services are being used I further acknowledge being given a choice of service. ?? If you need to contact me, please call me at this number: . Patient/Clearing Distribution Clerk Name: Patient/Clearing Distribution Clerk Signature: Relationship to Patient: Witness Name/Signature: Date: * Willam Siddiqi: PERFORM, SIGN, VERIFY Event Display: Patient Education Handout Authored Date: [id number] * Abbey Ferro RN: PERFORM Event Display: Patient Education Leaflets Authored Date: Surgery Medical Daystay Surgical Overnight Discharge Instructions ?? 295 Medical Daystay/Surgical Overnight Discharge Instructions ? Since your coordination and judgment may be altered by medication and/or anesthesia, a responsible adult must drive you home from the hospital. ? If you have received medication for pain or sedation while under our care, you should not drive, operate machinery, drink alcohol, or sign any legal documents for 24 hours.?? You should have someone with you at home tonight. ? Remain at home the day of discharge.?? You may be up and about unless otherwise instructed by your physician. ? You may resume your daily prescription medication schedule.?? Any depressant medication should be avoided for 24 hours unless otherwise instructed by your surgeon or anesthesiologist. ? Call your physician for a follow-up appointment.? If you experience unusual or severe pain not relied by your pain medication, excessive bleedingor drainage, persistent nausea and vomiting, excessive swelling or redness, foul odor from incisionsite or fever over 100.6F, you need to call your physician. ? A follow-up phone call by a nurse will be made the day after your procedure.?? If you have stayed with us over night, you will not be receiving a follow-up phone call. ? Nausea and vomiting are a common side effect of prescription pain medication.?? We recommend that pills are not taken on an empty stomach.?? While taking any prescription pain medication you should not drive or drink alcohol. ? * Abbey Ferro RN: PERFORM Event Display: Patient Education Leaflets Authored Date: [id number] Surgery Medical Daystay Surgical Overnight Discharge Instructions ?? 295 Medical Daystay/Surgical Overnight Discharge Instructions ? Since your coordination and judgment may be altered by medication and/or anesthesia, a responsible adult must drive you home from the hospital. ? If you have received medication for pain or sedation while under our care, you should not drive, operate machinery, drink alcohol, or sign any legal documents for 24 hours.?? You should have someone with you at home tonight. ? Remain at home the day of discharge.?? You may be up and about unless otherwise instructed by your physician. ? You may resume your daily prescription medication schedule.?? Any depressant medication should be avoided for 24 hours unless otherwise instructed by your surgeon or anesthesiologist. ? Call your physician for a follow-up appointment.? If you experience unusual or severe pain not relied by your pain medication, excessive bleedingor drainage, persistent nausea and vomiting, excessive swelling or redness, foul odor from incisionsite or fever over 100.6F, you need to call your physician. ? A follow-up phone call by a nurse will be made the day after your procedure.?? If you have stayed with us over night, you will not be receiving a follow-up phone call. ? Nausea and vomiting are a common side effect of prescription pain medication.?? We recommend that pills are not taken on an empty stomach.?? While taking any prescription pain medication you should not drive or drink alcohol. ? * Willam Siddiqi: PERFORM Event Display: Patient Education Leaflets Authored Date: [id number] Neurosurgery-Lumbar Discharge Instructions ?? 205 Neurosurgery Discharge Instructions ?? Postoperative instructions vary due to many different types of surgery.?? Your specific needs may require modifications to these instructions by your surgeon. ?? Diet ??? You should resume your usual diet at home unless instructed otherwise ?? Medications ??? You will be provided with a medication reconciliation when you leave the hospital explaining which medications you should continue and which you should stop ??? You may be discharged home with prescriptions with new medications which should be explained to you prior to discharge ?? Bowel Regimen ??? Narcotic pain medications commonly cause constipation ??? You should use an nsuc-iby-nqcqatn stool softener, such as Colace or Senna, for as long as you are experiencing constipation ??? You should use an mjgs-one-yylxtgy oral laxative or rectal suppository if you do not have a bowel movement within 3 days after your surgery ?? Incision and Wound Care ??? You should remove your dressing on the 3rd postoperative day ??? You do not need to apply any other dressing or bandage ??? Do not apply creams, lotions, or ointments to the incision ??? If you have steri-strips, these will fall off on their own ??? * Remove after 2 weeks if they have not fallen off yet ??? If you have annika/sutures, these will be removed at your follow up appointment ??? Yo u should call the office if you experience any of the following: ??? Redness, swelling, or increasing pain/tenderness of the surgical incision site ??? Discharge of pus, blood, or other fluid from the surgical incision site ??? Wound separation ??? Temperature greater than 101.5 F ?? Bathing ??? Do not shower or get your incision wet until the 3rd postoperative day ??? Do not soak the incision in a bath, pool or any other body of water for 4 weeks ??? You should gently pat the incision dry with a towel immediately after bathing ? Activity ??? Do not drive for 2 weeks unless instructed otherwise ??? Do not drive while taking narcotic pain medication or muscle relaxants ??? Do not lift more than 15 to 20 lbs until seen again by your surgeon ??? Do not perform any strenuous activities, exercises or movements until instructed otherwise ??? Do not resume sexual activity until you feel comfortable.?? Do not perform activities or positions that place stress on the operated area ??? _ ??? Call your primary care physician for all questions and problems not related to your surgery, such as chronic medical conditions, e.g., diabetes, hypertension, etc. ??? Call [facility] neurosurgery for any questions or problems related to your surgery??? _ [facility] [address] [place] [address] , [address], [place], [place] [phone] _ ? Patient Care team information Care Team Personnel Name: Ortega Scott RN [facility] Nurse Member Role: Primary Care Nurse Name: Hosea Enamorado Position: Reference Physician Member Role: PCP Address: Address: [address] [place] [address] Care Team Related Persons Name: EDUARDAKAT KIMBALL Address: home [address] [place] [address] Name: LENY THIBODEAUX Address: home [address] [place] [address]
--- OUTSIDE RECORDS SUMMARY | 2024-06-10 13:44 | XMS_ITS | Continuity of Care Document ---
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
--- OUTSIDE RECORDS SUMMARY | 2024-06-10 13:44 | XMS_ITS | Continuity of Care Document ---
Author Organization [facility] Address [address] [place] [address]- Care Team Providers Care Furnace Liner Name Role Phone Hosea Enamorado Primary Care Physician Encounter [facility] Date(s): 08/08/23 - 08/15/23 Pre Op Overflow [address] [place], [place] [address] Attending Physician: Bolivar Joya MD Referring Physician: Dami Stuart MD Allergies, [...] Active Lumbar spinal stenosis Confirmed Active WPW (Hslmm-Byjethpcj-Hk ite syndrome)s/p sternotomy ablation Confirmed Active Procedures Procedure Date Related Diagnosis Body Site Status ILR implantation in 7017, atrial flutter ablation 2016, history of difficult colonoscopy, WPW ablation with open heart surgery sternotomy, tonsillectomy, lap cholecystectomy, cervical disc surgery C5-C7, lumbar L4-L5 surgery, right total hip arthroplas Completed Vital Signs Most recent to oldest [Reference Range]: 1 Height 161 cm (08/08/23 9:14 AM) Weight 95.8 kg (08/08/23 9:14 AM) Oxygen Saturation [94-100 %] 97 % (08/08/23 9:14 AM) Pulse Rate [55-90 bpm] 78 bpm (08/08/23 9:14 AM) Body Mass Index [18.5-24.99 kg/m2] 36.96 kg/m2 *>HHI* (08/08/23 9:14 AM) Blood Pressure [90-138/55-84 mm Hg] 132/ 71mm Hg (08/08/23 9:14 AM) Respiratory Rate [16-30 br/min] 18 br/mi n (08/08/23 9:14 AM) Blood pressure sites Arm, right (08/08/23 9:14 AM) Weight Obtained Via Standing scale (08/08/23 9:14 AM) Social History Social History Type Response Smoking Status 5-9 cigarettes (betw een 1/4 to 1/2 pack)/day in last 30 days entered on: 07/30/23 Sex EKG study * Event Display: ECG 12-Lead Authored Date: Please click on pdf link to open report * Event Display: ECG 12-Lead Authored Date: Ventricular Rate: 76 BPM Atrial Rate: 76 BPM P-R Interval: 148 ms QRS Duration: 102 ms Q-T Interval: 412 ms QTC Calculation(Bazett): 463 ms P Capron: 17 degrees R Capron: 39 degrees T Capron: 62 degrees Normal sinus rhythm Nonspecific T wave abnormality Abnormal ECG When compared with ECG of 18-AUG-2014 11:13, Sinus rhythm has replaced Atrial flutter Vent. rate has decreased BY 45 BPM Minimal criteria for Inferior infarct are no longer Present T wave inversion no longer evident in Inferior leads Confirmed by SAMUEL WINN ([id number]) on 08/09/2023 12:58:36 PM [place]: SAMUEL WINN Patient Care team information Care Team Personnel Name: Ortega Scott RN Position: S AMB Nurse Member Role: Primary Care Nurse Name: Hosea Enamorado Position: Reference Physician Member Role: PCP Address: Address: [address] [place] [address] Care Team Related Persons Name: KAT LERNER Address: home [address] [place] [address] Name: LENY THIBODEAUX Address: home [address] [place] [address]
--- OUTSIDE RECORDS SUMMARY | 2024-06-10 13:44 | XMS_ITS | Continuity of Care Document ---
Author Organization [facility] Address [address] [place] [address] [address], [address] [place] [address]- Care Team Providers Care Crematory Attendant Name Role Phone Hosea Enamorado Primary Care Physician Encounter [facility] Date(s): 09/19/23 - 09/26/[address], [address] [place], [place] [address] Attending Physician: Dami Stuart MD Referring Physician: Hosea Enamorado Allergies, Adverse Reactions, Alerts Substance Reaction Severity [...] opioid drug. Start Date: 08/14/23 Status: Ordered tiZANidine 4 mg oral tablet 4 mg, 1, tablet, By Mouth, Daily at bedtime, # 30 tablet, Refills 0, Tot. Refills 0, Maintenance, 09/19/23 12:02:00 EST, Route to Pharmacy Electronically, [facility] - [place], [place] - [phone], Partial fill upon patient request if the prescri... Start Date: 09/19/23 Stop Date: 10/19/23 Status: Ordered traZODone 100 mg oral tablet [...] Active Lumbar spinal stenosis Confirmed Active WPW (Iuwtf-Icncdeckc-Dn ite syndrome)s/p sternotomy ablation Confirmed Active Vital Signs Most recent to oldest [Reference Range]: 1 Height 160.02 cm (09/19/23 11:15 AM) Weight 91.2 kg (09/19/23 11:15 AM) Body Mass Index [18.5-24.99 kg/m2] 35.62 kg/m2 *>HHI* (09/19/23 11:15 AM) Social History Social History Type Response Smoking Status 5-9 cigarettes (betw een 1/4 to 1/2 pack)/day in last 30 days entered on: 09/19/23 Sex Patient Care team information Care Team Personnel Name: Ortega Scott RN Position: [facility] Nurse Member Role: Primary Care Nurse Name: Hosea Enamorado Position: Reference Physician Member Role: PCP Address: Address: [address] [place] [address] Care Team Related Persons Name: KAT LERNER Address: home [address] [place] [address] Name: LENY THIBODEAUX Address: home [address] [place] [address]
--- OUTSIDE RECORDS SUMMARY | 2024-06-10 13:44 | XMS_ITS | Continuity of Care Document ---
Author Organization [facility] Address [address] [place] [address] [address] packer, [address] [place] [address]- Care Team Providers Care Canal Driver Name Role Phone Hosea Enamorado Primary Care Physician [place] [facility] Date(s): 05/07/24 - 06/06/24 [facility] [address] [place] [address] Drive [address] [place], [place] [address] Allergies, Adverse Reactions, Alerts Substance Reaction [...] 09/19/23 12:02:00 EST, Route to Pharmacy Electronically, [facility] - [place], [place] - [phone], Partial fill upon patient request if the [...] Gallstone Confirmed Active H/O migraine Confirmed Active Obese class I Confirmed Active Obesity Confirmed Active Lumbar spinal stenosis Confirmed Active WPW (Hkzvw-Lngkepwko-Vj ite syndrome)s/p sternotomy ablation Confirmed Active Social History Social History Type Response Smoking Status 5-9 cigarettes (betw een 1/4 to 1/2 pack)/day in last 30 days entered on: 09/19/23 Sex Patient Care team information Care Team Personnel Name: Ortega Scott RN Position: [facility] Nurse Member Role: Primary Care Nurse Name: Hosea Enamorado Position: Reference Physician Member Role: PCP Address: Address: [address] [place] [address] [facility] [place], [place] [address] Care Team Related Persons Name: KAT LERNER Address: home [address] [place] [address] Name: LENY THIBODEAUX Address: home [address] [place] [address]
--- OUTSIDE RECORDS SUMMARY | 2024-06-10 13:44 | XMS_ITS | Continuity of Care Document ---
Author Organization [facility] Address [address] [place] [address] [address]orene packer, [address] [place] [address]- Care Team Providers Care Parallel Computing Software Engineer Name Role Phone Hosea Enamorado Primary Care Physician Encounter [facility] Date(s): 08/21/23 - 09/20/[address], [address] [place], [place] [address] Allergies, Adverse [...] 09/19/23 12:02:00 EST, Route to Pharmacy Electronically, [facility] - [place], [place] - [phone], Partial fill upon patient request if the [...] Active Lumbar spinal stenosis Confirmed Active WPW (Qgqnn-Yzsjkoymt-Rh ite syndrome)s/p sternotomy ablation Confirmed Active Social History Social History Type Response Smoking Status 5-9 cigarettes (betw een 1/4 to 1/2 pack)/day in last 30 days entered on: 09/19/23 Sex Patient Care team information Care Team Personnel Name: Ortega Scott RN Position: S [facility]B Nurse Member Role: Primary Care Nurse Name: Hosea Enamorado Position: Reference Physician Member Role: PCP Address: Address: [address] [place] [address]- Care Team Related Persons Name: KAT LERNER Address: home [address] [place] [address] Name: LENY THIBODEAUX Address: home [address] [place] [address]
--- OUTSIDE RECORDS SUMMARY | 2024-06-10 13:44 | XMS_ITS | Continuity of Care Document ---
Author Organization [facility] Address [address] [place] [address] [address], [address] [place] [address]- Care Team Providers Care Special Librarian Name Role Phone Hosea Enamorado Primary Care Physician ( [phone] Encounter [facility] Date(s): 09/19/23 - 10/19/[address], [address] [place], [place] [address] Attending Physician: Giovanni Holliday Admitting Physician: Giovanni Holliday Referring Physician: AdmtrGiovanni Allergies, Adverse Reactions, Alerts [...] 09/19/23 12:02:00 EST, Route to Pharmacy Electronically, [facility] - [place], [place] - [phone], Partial fill upon patient request if the [...] Active Lumbar spinal stenosis Confirmed Active WPW (Pzfzs-Nnkwmucaq-Kv ite syndrome)s/p sternotomy ablation Confirmed Active Social History Social History Type Response Smoking Status 5-9 cigarettes (betw een 1/4 to 1/2 pack)/day in last 30 days entered on: 09/19/23 Sex Patient Care team information Care Team Personnel Name: Ortega Scott RN Position: [facility] Nurse Member Role: Primary Care Nurse Name: Hosea Enamorado Position: Reference Physician Member Role: PCP Address: Address: [address] [place] [address]- Care Team Related Persons Name: KAT LERNER Address: home [address] [place] [address] Name: LENY THIBODEAUX Address: home [address] [place] [address]
--- OUTSIDE RECORDS SUMMARY | 2024-06-10 13:44 | XMS_ITS | Continuity of Care Document ---
Author Organization [facility] Address [address] [place] [address] [address]orene packer, [address] [place] [address]- Care Team Providers Care Lab Associate Name Role Phone Hosea Enamorado Primary Care Physician Encounter [facility] Date(s): 05/19/24 - 05/26/[address] [place], [place] [address] Attending Physician: Dami Stuart MD Allergies, Adverse Reactions, [...] 09/19/23 12:02:00 EST, Route to Pharmacy Electronically, [facility] - [place], [place] - [phone], Partial fill upon patient request if the [...] Active Lumbar spinal stenosis Confirmed Active WPW (Kzcoq-Uaqvfhisb-Hc ite syndrome)s/p sternotomy ablation Confirmed Active Vital Signs Most recent to oldest [Reference Range]: 1 Height 160 cm (05/19/24 3:40 PM) Weight 86 kg (05/19/24 3:40 PM) Body Mass Index [18.5-24.99 kg/m2] 33.59 kg/m2 *>HHI* (05/19/24 3:40 PM) Social History Social History Type Response Smoking Status 5-9 cigarettes (betw een 1/4 to 1/2 pack)/day in last 30 days entered on: 09/19/23 Sex Patient Care team information Care Team Personnel Name: Ortega Scott RN Position: [facility] Nurse Member Role: Primary Care Nurse Name: Hosea Enamorado Position: Reference Physician Member Role: PCP Address: Address: [address] [place] [address] [place] [address]- Care Team Related Persons Name: KAT LERNER Address: home [address] [place] [address] Name: LENY THIBODEAUX Address: home [address] [place] [address]
--- OUTSIDE RECORDS SUMMARY | 2024-06-10 13:44 | XMS_ITS | Continuity of Care Document ---
Author Organization [facility] Address [address] [place] [address] [address]orene packer, [address] [place] [address]- Care Team Providers Care Director Of Quality Name Role Phone Hosea Enamorado Primary Care Physician ( [phone] Encounter [facility] Date(s): 07/30/23 - 08/06/[address], [address] [place], [place] [address] Attending Physician: Dami Stuart MD Referring Physician: Jorje Cho DO Allergies, Adverse Reactions, Alerts Substance Reaction Severity [...] opioid drug. Start Date: 07/30/23 Status: Ordered diclofenac 1% topical gel 0 Refills, Maintenance, 07/30/23 14:06:00 EDT, Partial fill upon patient request if [...] Atrial flutter Confirmed Active Gallstone Confirmed Active Obese class I Confirmed Active Obesity Confirmed Active Vital Signs Most recent to oldest [Reference Range]: 1 Height 161 cm (07/30/23 1:59 PM) Weight 86.0 kg (07/30/23 1:59 PM) Body Mass Index [18.5-24.99 kg/m2] 33.18 kg/m2 *>HHI* (07/30/23 1:59 PM) Social History Social History Type Response Smoking Status 5-9 cigarettes (betw een 1/4 to 1/2 pack)/day in last 30 days entered on: 07/30/23 Sex Patient Care team information Care Team Personnel Name: Ortega Scott RN Position: [facility] AMB Nurse Member Role: Primary Care Nurse Name: Hosea Enamorado Position: Reference Physician Member Role: PCP Address: Address: [address] [place] [address]- Care Team Related Persons Name: KAT LERNER Address: home [address] [place] [address] Name: LENY THIBODEAUX Address: home [address] [place] [address]
--- OUTSIDE RECORDS SUMMARY | 2024-06-10 13:44 | XMS_ITS | Continuity of Care Document ---
Author Organization [facility] Address [address] [place] [address]- Care Team Providers Care Faucet Polisher Name Role Phone Hosea Enamorado Primary Care Physician Encounter 06/08/24 - 06/09/[address] [address] Attending Physician: Not on Staff, Attending MD Referring Physician: Not on Staff, Referring MD Allergies, Adverse Reactions, Alerts Substance Reaction [...] 09/19/23 12:02:00 EST, Route to Pharmacy Electronically, [facility] - [place], [place] - [phone], Partial fill upon patient request if the [...] Active Lumbar spinal stenosis Confirmed Active WPW (Klzsn-Haqdntyxn-Lw ite syndrome)s/p sternotomy ablation Confirmed Active Social History Social History Type Response Smoking Status 5-9 cigarettes (betw een 1/4 to 1/2 pack)/day in last 30 days entered on: 09/19/23 Sex Patient Care team information Care Team Personnel Name: Ortega Scott RN Position: S [facility]B Nurse Member Role: Primary Care Nurse Name: Hosea Enamorado Position: Reference Physician Member Role: PCP Address: Address: [address] [place] [address] [place] [address]- Care Team Related Persons Name: KAT LERNER Address: home [address] [place] [address] Name: LENY THIBODEAUX Address: home [address] [place] [address]
[2024-06-10 14:06] VITALS: BMI 34.0
--- NOTE | 2024-06-10 14:09 | MHC.SHP ---
Pre-Procedural Eval Section A - 24 Hr Update-Section A only Date of Service: 06/10/24 The patient is an INPATIENT: No Changes since office visit: No Cold of Flu in the past 2 weeks, No New Medical Problems, No Changes in Medication and No Patient answered all questions The patient has been examined within 24 hours of the surgical procedure. The History & Physical has been completed within 30 days and I have reviewed it.: Yes Section B - Complete if H&P > 30 days Chief Complaint: Presence of artificial hip joint, bilateral Allergies: Allergies Allergy/AdvReac Type Severity Reaction Status Date / Time pravastatin Allergy Mild rash Verified 06/10/24 14:08 Plan I have reviewed the history and physical and performed a pertinent physical examination on my patient. No changes have occurred unless specified. Time Spent With Patient Time: Total time managing care of this patient today ____ minutes.
[2024-06-10 14:14] VITALS: BP 135/75; PULSE 77; RESP 16; TEMP 36.5; O2SAT 96
[2024-06-10 14:36] VITALS: BP 128/70; PULSE 77; RESP 20; TEMP 36.2; O2SAT 94
--- NOTE | 2024-06-23 07:06 | P.OP_ITS ---
Operative Note Operative Note Date of Service: 06/10/24 Narrative: Date of Service: 06/10/24 Pre-op diagnosis: S/p left hip arthroplasty Post-op diagnosis: same Procedure: Left hip aspiration Implants: none Surgeon: Sheldon Hadley MD Anesthesia: local Was an Construction Safety Consultant used for this Procedure?: No Estimated blood loss (mL): 0 Pathology: other Condition: stable Disposition: PACU Procedure in detail: Patient was brought to the operating room and placed supine on the surgical table. She was prepped and draped in standard sterile fashion and a time out was called to identify proper site, proper procedure and IV antibiotics per weight were administered. I began by injecting local anesthetic over the anterior hip ( ~3 cm lateral to the illiac artery and 3 cm distal to the ASIS). I injected generously and then placed an 18 g spinal needle into the hip joint using fluoroscopic guidance. I aspirated a sparse of amount of serosanguinous fluid but minimal. I attempted several different areas in the joint and did get a small amount of nl appearing joint fluid. This was sent for culture. The puncture site was covered with a band-aid and the patient was returned to the recovery room in stable condition. there were no known complications.
== END 2024-06-10 14:56 | disposition home or self-care (01) ==
LOC: HO.SSS 13:42
PROVIDERS: PCP Physician Assistant Medical; Visit Provider Orthopaedic Surgery
PROC: (CPT 20610; principal; 2024-06-10 14:50)
DX: M25.552 Pain in left hip (principal); R26.2 Difficulty in walking, not elsewhere classified; R79.82 Elevated C-reactive protein (CRP); Z96.643 Presence of artificial hip joint, bilateral; I48.0 Paroxysmal atrial fibrillation; I45.6 Pre-excitation syndrome; Z95.818 Presence of other cardiac implants and grafts; Z98.890 Other specified postprocedural states; Z88.8 Allergy status to other drugs, medicaments and biological substances; F17.210 Nicotine dependence, cigarettes, uncomplicated
CPT/HCPCS: 20610; 77002; 87070; 87073; 87205; J2795

== ENCOUNTER → 2024-06-10 13:41 | Outpatient (BNV) | payer MEDICARE, MEDICAID, SELFPAY | PROVIDERS: PCP Physician Assistant Medical; Visit Provider Orthopaedic Surgery | DX: M25.452 Effusion, left hip (principal); Z96.642 Presence of left artificial hip joint | CPT/HCPCS: 20610; 77002 ==

== ENCOUNTER 2024-08-12 13:29 | Outpatient (AMB) | payer MEDICARE, MEDICAID, SELFPAY ==
[2024-08-12 13:51] VITALS: BP 110/80; PULSE 70; BMI 33.7
--- NOTE | 2024-08-12 13:51 | MHC.OFFVIS ---
Vital Signs 08/12/24 13:51 Height 5 ft 3 in Weight 190 lb 7.67 oz BMI 33.7 BP 110/80 Blood Pressure Location Lt brachial Position Sitting Pulse 70 Pulse Source Monitor Intake Visit Reasons: prev ns pt/ preop Ruarke/ tka Intake Note: pre-op Ruarke/TKA 10/19/24 Security Control Assessor Required: No Accompanied by: Self / Same As Patient Allergies pravastatin Allergy (Mild, Verified 06/10/24 14:08) rash Medication List - Last Reconciled 08/12/24 by Kulwinder Young MD acyclovir 400 mg PO DAILY albuterol sulfate 90 mcg/actuation (Ventolin HFA) 0 mcg inhalation apixaban (Eliquis) 5 mg PO BID bupropion HCl XL 300 mg PO QAM celecoxib 200 mg PO DAILY docusate sodium 100 mg PO DAILY fluticasone propionate 110 mcg/actuation (Flovent HFA) 2 puffs inhalation BID lamotrigine 200 mg PO DAILY melatonin 3 mg PO QPM omeprazole 20 mg PO BID oxycodone 10 mg PO Q6H PRN oxycodone ER (OxyContin) 30 mg PO BID oxycodone ER (OxyContin) 30 mg PO BID pedi multivit [id number] K1 18 mg iron- 10 mcg (Cerovite Jr) 1 tab PO DAILY rosuvastatin 10 mg PO BEDTIME sennosides (senna) 8.6 mg PO BID terbinafine HCl 250 mg PO DAILY tizanidine 4 mg PO BID trazodone 100 mg PO BEDTIME PRN zolpidem 10 mg PO BEDTIME PRN HPI Comments Details: Laura comes for follow-up of atrial flutter although she tells me that she is planned to undergo knee replacement surgery in near future. She says she has markedly limited with activity level due to bilateral knee issues. Denies any cardiac symptoms although she says she does not do much. She denies any exertional chest pain or shortness of breath. No prolonged palpitation irregular heartbeat. No lightheadedness, syncope. No major bleeding issues or neurologic events. [facility] Medical History Paroxysmal atrial flutter Status post placement of implantable loop recorder WPW (Wtrxo-Uypdgeusq-Kiswb syndrome) Surgical History History of hip surgery History of hip surgery History of back surgery Hx of neck surgery History of open heart surgery Family History Father HTN (hypertension) Mother HTN (hypertension) Social History Patient Tobacco Use Status: Current everyday Tobacco user Tobacco use type: Cigarette Cigarettes Per Day: 5 Current occupational status: disabled Current occupation: Right hand dominate Review of Systems Const Denies chills, Denies fatigue, Denies fever(s), Denies frequent falls, Denies weakness, Denies weight gain and Denies weight loss ENT Denies dizziness Card Denies chest pain, Denies leg edema, Denies lightheadedness, Denies palpitations, Denies dyspnea and Denies dyspnea on exertion Resp Denies cough, Denies dyspnea and Denies dyspnea on exertion GI Denies hematochezia Musc Denies abnormal gait, Denies muscle weakness, Denies numbness, Denies radiating pain into limb and Denies tingling Neuro Denies abnormal gait, Denies dizziness, Denies frequent falls, Denies numbness, Denies tingling and Denies weakness Endo Denies fatigue and Denies palpitations Physical Exam Vital Signs: Last Vital Signs Pulse 70 08/12/24 13:51 BP 110/80 08/12/24 13:51 BMI result Body Mass Index 33.7 Const General: cooperative, comfortable, no acute distress, alert and awake Orientation/consciousness: patient oriented x3 Limitations: ambulation with walker Neck Neck: Yes trachea midline, Yes supple and Yes no JVD Resp Effort & Inspection: normal respiratory effort Auscultation: crackles (Coarse), wheezes and diminished lung sounds Cardio Jugular venous distension: no JVD Palpation: normal PMI Rate: regular rate Rhythm: regular rhythm Heart sounds: S1 normal heart sound present, S2 normal heart sound present, no click, no gallops, no murmurs and no rubs GI Auscultation: normal bowel sounds Skin General skin exam: no rashes or lesions noted Neuro General: patient oriented x3 and no focal motor deficits Extrem General: Yes no clubbing, cyanosis or edema Office Procedures EKG Details: EKG shows normal sinus rhythm with normal EKG 85008-[id number], Complete Assessment & Plan Assessment & Plan (1) Preop cardiovascular exam: Code(s): Z01.810 - Encounter for preprocedural cardiovascular examination Category: Medical Plan: Preoperative cardiovascular risk stratification prior to intermediate risk orthopedic surgery with knee replacement or general anesthesia. Patient was very limited exercise capacity. No obvious cardiac symptoms although given her limited exercise capacity needs further evaluation for risk stratification. Would suggest a vasodilating myocardial perfusion imaging to assess for the same. If this is within normal limits she is optimized to undergo surgery with low risk for perioperative cardiovascular morbidity and mortality. This will be scheduled in very near future. Eliquis can be held for 3 days prior to the procedure and resumed as soon as possible after the procedure with associated thromboembolic risk. (2) Paroxysmal atrial flutter: Comment: As recorded ablation in 2017. Patient denies this. Do not have records about the ablation. reviewed the records on 09/07/2021. Patient atrial flutter ablation done at [facility] in 2017 Code(s): I48.92 - Unspecified atrial flutter Category: Medical Plan: Paroxysmal atrial flutter status post ablation. Has done well overall including ablation for WPW. EKG shows no evidence of preexcitation. No recurrent symptoms suggestive of atrial flutter at this point time. No further pharmacotherapy is recommended to suppress arrhythmia. Continue full oral anticoagulation, currently on Eliquis. Will follow up in the clinic in 1 year's time, sooner p.r.n.. Thank you for allowing me to partake in his care Orders: Orders CA lexiscan stress w jay Today Z01.810 - Encounter for preprocedural cardiovascular examination Coding Level of Care Code Est Pt Level 4 (15453) Complex EM visit Add On G2211 Diagnoses Preop cardiovascular exam Z01.810 Paroxysmal atrial flutter I48.92 CPT Codes EKG - CPT: 54975-Gqorpuqczubortnmy, Complete ([id number])
== END 2024-08-12 14:51 | disposition home or self-care (01) ==
PROVIDERS: PCP Physician Assistant Medical; Visit Provider Internal Medicine Cardiovascular Disease
DX: I48.92 Unspecified atrial flutter (principal); Z01.810 Encounter for preprocedural cardiovascular examination
CPT/HCPCS: 93010; 99214; G2211

== ENCOUNTER → 2024-08-12 13:29 | Outpatient (BNVA) | payer MEDICARE, MEDICAID, SELFPAY | PROVIDERS: PCP Physician Assistant Medical; Visit Provider Internal Medicine Cardiovascular Disease | DX: I48.92 Unspecified atrial flutter (principal); I45.6 Pre-excitation syndrome; Z95.818 Presence of other cardiac implants and grafts | CPT/HCPCS: 93005; 99212 ==

== ENCOUNTER → 2024-08-13 08:09 | Outpatient (REF) | payer MEDICARE, MEDICAID, SELFPAY ==
--- NOTE | ~2024-08-13 | NM_ITS ---
Lexiscan Myocardial perfusion study Indication: Preoperative cardiac evaluation Technique: The patient was brought in for a Lexiscan perfusion study on 08/13/2024 and was injected 0.4 mg of Lexiscan intravenously. Within a minute of this injection 30 mCi of sestamibi was given intravenously. Images were obtained using the SPECT gamma camera interlaced with the gating device. Images were obtained in supine position. Resting perfusion study was performed on 08/17/2024. Patient was administered 30 mCi of sestamibi intravenously at rest. Images were then obtained in supine position. Total DLP 168 mGy-cm. Images were processed with the software and compared side to side in short axis, horizontal long axis and vertical long axis views. Findings: Raw aquisition reviewed. Arms by the patient's side. The stress perfusion study showed decreased tracer uptake in the mid to distal part of inferolateral wall. There is also adjacent subdiaphragmatic tracer uptake. The gated study shows normal LV systolic function with calculated LVEF of 58%. LV cavity is normal in size. The gated study shows diminished contractility in the distal part of the inferolateral wall. Resting study shows reduced tracer uptake in the distal part of inferolateral wall. There is also adjacent subdiaphragmatic tracer uptake. No major change with CT attenuation correction. Gating at rest reveals reduced contractility in the distal part of inferolateral wall. Gated LVEF 57%. The findings are consistent with mixed perfusion defect in the mid to distal part of inferolateral wall. NM/NM cardiolite stress test Impression: 1. Myocardial perfusion imaging study shows mixed perfusion defect in the mid to distal inferolateral wall. Possible ischemia/infarct pattern. Cannot exclude artifactual etiology. 2. Gated LVEF is 58% during stress and 57% during rest. 3. Transient ischemic dilatation not present. EKG component of the test reported separately. Electronically signed by: Shen Merchant MD 08/18/2024 04:07 PM BRAD
--- NOTE | 2024-08-13 08:13 | CA_ITS ---
Acquisition Time: 2024-08-13 08:20:50 Total Exercise Time: 00:02:00 Test Indications: Abnormal ECG AFLUTTER Medications: SEE H Protocol: LEXISCAN Max HR: 095 BPM 60% of Pred: 157 BPM Max BP: 148/070 mmHG Max Work Load: 1.0 METS Pharmacologic Nuclear Stress Test with Lexiscan injection, without any anginal symptoms, without any arrythmia, with normotensive response to the injection. Without EKG changes meeting criteria for ischemia. Reported headache in recovery, not resolved with caffeine; treated with IV Aminophylline 75mg to reverse Lexiscan. Nuclear images pending. Test reviewed with Dr. Mayes. Referred By: Kulwinder Young Overread By: KEILA MARQUEZ
== END ==
LOC: HO.CARD 08:09
PROVIDERS: PCP Physician Assistant Medical; Visit Provider Internal Medicine Cardiovascular Disease
DX: Z01.810 Encounter for preprocedural cardiovascular examination (principal); I48.92 Unspecified atrial flutter
CPT/HCPCS: 78452; 93017; A9500; J0280; J2785

== ENCOUNTER → 2024-08-13 08:13 | Outpatient (BNV) | payer MEDICARE, MEDICAID, SELFPAY | PROVIDERS: PCP Physician Assistant Medical; Visit Provider Nurse Practitioner Family | DX: R94.31 Abnormal electrocardiogram [ECG] [EKG] (principal); I48.92 Unspecified atrial flutter | CPT/HCPCS: 78452; 93016; 93018 ==

== ENCOUNTER → 2024-09-14 09:07 | Outpatient (BNVA) | payer MEDICARE, MEDICAID, SELFPAY | PROVIDERS: PCP Physician Assistant Medical | DX: Z01.818 Encounter for other preprocedural examination (principal) ==

== ENCOUNTER 2024-09-21 | Outpatient (REF) | payer MEDICARE, MEDICAID, SELFPAY ==
[2024-09-21 11:15] VITALS: BP 136/73; PULSE 71; RESP 20; O2SAT 97; BMI 32.8
--- NOTE | 2024-09-21 11:38 | P.CONAN_ITS ---
HPI - Anesthesia Eval Consult details Narrative: Pending reschedule 64yo F for Right Knee Replacement Total, 10/19/23 Productive cough x ~ 1 month (clear phlegm), no fevers (smoker) No CP. 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 Cardiac optimized . Mildly abnormal stress test. Intermediate risk for perioperative cardiovascular morbidity mortality. No change in therapy. Eliquis can be held 3 days prior to the procedure and restarted as soon as possible after surgery with associated risk Eliquis for Afib ? s/p ablation 2017 WPW s/p RFA > 40 years ago Implantable loop recorder in situ Chronic opioids COPD: albuterol ~ 3 x weekly GERD: ppi controls PMFSH Active Problems Active Problems: All Active Problems Preop cardiovascular exam (Acute) Iliotibial band syndrome, left leg (Acute) Status post bilateral total hip replacement (Acute) Arthritis of right knee (Acute) Arthritis of left knee (Acute) Right knee pain (Acute) Left knee pain (Acute) History of hip surgery (Acute) History of hip surgery (Acute) Paroxysmal atrial flutter (Acute) Status post placement of implantable loop recorder (Acute) Past Medical History Medical History (Updated 09/21/24 @ 11:04 by iVvian Portillo RN) Depression Asthma Migraines PVD (peripheral vascular disease) Elevated cholesterol COPD (chronic obstructive pulmonary disease) HTN (hypertension) Arthritis GERD (gastroesophageal reflux disease) Paroxysmal atrial flutter Status post placement of implantable loop recorder WPW (Nlpwy-Sdmuiimft-Yygxv syndrome) Family History Family History Father HTN (hypertension) Mother HTN (hypertension) Family history of problems with anesthesia: No Surgical History Surgical History (Updated 09/21/24 @ 11:08 by Vivian Portillo RN) Hx of cholecystectomy History of cardiac radiofrequency ablation H/O colonoscopy History of hip surgery History of hip surgery History of back surgery Hx of neck surgery History of Problems with Anesthesia: No Social History Social History Are you a primary home health caregiver to a significant other at home: No Do you presently have visiting nurse or other home services: Yes ([employer]) Patient Tobacco Use Status: Current everyday Tobacco user Tobacco use type: Cigarette Cigarettes Per Day: 4 Years Smoked: 49 Use of substances other than those prescribed or required for medical reasons: Yes Substance Use Type Other:: advised to hold 3-5 days pre-op Substance Use Frequency: Daily Have you been hit, kicked, punched, or otherwise hurt by someone within the past year? If so, by whom?: No Spiritual Healthcare Practices: none Hindu Healthcare Practices: none Cultural Healthcare Practices: none Are you DNR?: No Advance Directives: No (son is primary contact) Advance Directives Information Provided: Yes (brochure given) Advance Directives on File: No Recently lost weight without trying: No Eating poorly because of decreased appetite: No Nutrition Risks: No Nutritional Risk FDLMP: n/a Poor oral hygiene: Yes (full upper & lower dentures) Current occupational status: disabled Current occupation: Right hand dominate Meds Allergies Allergy/AdvReac Type Severity Reaction Status Date / Time pravastatin Allergy Mild rash Verified 09/14/24 09:18 Home Medications ?Medication ?Instructions ?Recorded ?Confirmed ?Last Taken ?Type acyclovir 400 mg tablet 400 mg PO DAILY 09/06/21 09/18/24 Unknown History apixaban 5 mg tablet (Eliquis) 5 mg PO BID 09/06/21 09/21/24 Unknown History bupropion HCl 300 mg 24 hr tablet, 300 mg PO QAM 09/06/21 09/21/24 Unknown History extended release docusate sodium 100 mg capsule 100 mg PO DAILY 09/06/21 09/21/24 Unknown History omeprazole 20 mg tablet,delayed 20 mg PO BID 09/06/21 09/21/24 Unknown History release sennosides 8.6 mg capsule (senna) 8.6 mg PO BID 09/06/21 09/21/24 Unknown History trazodone 100 mg tablet 100 mg PO BEDTIME PRN Insomnia 09/06/21 09/21/24 Unknown History zolpidem 10 mg tablet 10 mg PO BEDTIME PRN Insomnia 09/06/21 09/21/24 Unknown History albuterol sulfate 90 mcg/actuation 90 mcg inhalation Q4H PRN 01/17/23 09/18/24 Unknown History aerosol inhaler (Ventolin HFA) Shortness Of Breath Or Wheezing celecoxib 200 mg capsule 200 mg PO DAILY 06/04/24 09/21/24 Unknown History melatonin 3 mg tablet 3 mg PO QPM 06/04/24 09/21/24 Unknown History rosuvastatin 10 mg tablet 10 mg PO BEDTIME 06/04/24 09/21/24 Unknown History terbinafine HCl 250 mg tablet 250 mg PO DAILY 06/04/24 09/21/24 Unknown History tizanidine 4 mg tablet 4 mg PO BID 06/04/24 09/21/24 Unknown History clonazepam 0.5 mg tablet 0.5 mg PO QAM 09/14/24 09/21/24 Unknown History fluticasone propionate 110 1 puff inhalation BID 09/21/24 09/21/24 Unknown History mcg/actuation HFA aerosol inhaler lamotrigine 150 mg tablet 150 mg PO BID 09/21/24 09/21/24 Unknown History oxycodone 10 mg tablet 10 mg PO BID 09/21/24 09/21/24 Unknown History oxycodone 20 mg tablet,crush 20 mg PO BID 09/21/24 09/21/24 Unknown History resistant,extended release 12 hr (OxyContin) Exam Height,Weight and Vital Signs: Height 5 ft 3 in Weight 83.915 kg Last Vital Signs Pulse 71 09/21/24 11:15 Resp 20 09/21/24 11:15 BP 136/73 09/21/24 11:15 Pulse Ox 97 09/21/24 11:15 O2 Del Method Room Air 09/21/24 11:15 Narrative Narrative: EKG 07/2024 Details: EKG shows normal sinus rhythm with normal EKG NM cardiolite stress test 07/2024 Impression: 1. Myocardial perfusion imaging study shows mixed perfusion defect in the mid to distal inferolateral wall. Possible ischemia/infarct pattern. Cannot exclude artifactual etiology. 2. Gated LVEF is 58% during stress and 57% during rest. 3. Transient ischemic dilatation not present. Airway TM Dist: >3cm Neck ROM: Limited (s/p cspine surgery ~ 5 years ago) Denture: Upper Loose/Missing/Broken Teeth: Yes (does not wear lower dentures) Heart: RRR Lungs: CTAB Assessment and Plan Assessment Anesthesia Assessment: Anesthesia Plan Discussed, Smoking Cess. Discussed and PAT Visit Final Anesthetic Review Family History of Problems with Anesthesia: No History of Problems with Anesthesia: No
[2024-09-21 13:36] LABS: MRSA Nasal PCR NEGATIVE (Negative); SA Nasal PCR NEGATIVE (Negative)
== END 2024-09-21 00:01 | disposition home or self-care (01) ==
LOC: HO.PAT
PROVIDERS: Physician Assistant; Admitting Provider Orthopaedic Surgery; PCP Physician Assistant Medical; Visit Provider Orthopaedic Surgery
DX: Z01.818 Encounter for other preprocedural examination (principal); M17.11 Unilateral primary osteoarthritis, right knee
CPT/HCPCS: 87640; 87641

== ENCOUNTER → 2025-02-08 11:28 | Outpatient (BNVA) | payer MEDICARE, MEDICAID, SELFPAY | PROVIDERS: PCP Physician Assistant Medical | DX: Z01.818 Encounter for other preprocedural examination (principal) ==

== ENCOUNTER 2025-03-11 09:51 | Outpatient (AMB) | payer MEDICAID, SELFPAY ==
[2025-03-11 10:03] VITALS: BMI 32.8
--- NOTE | 2025-03-11 10:03 | MHC.OFFVIS ---
Vital Signs 03/11/25 10:03 Height 5 ft 3 in Weight 185 lb BMI 32.8 Intake Visit Reasons: Left knee pain Intake Note: Ms. Hickman presents with complaints of progressively worsening bilateral knee pains, left greater than right. She describes her left knee pain as sharp and severe in nature, 07/09. Her pain has gotten worse over the last few years in spite of continued non operative treatments. She has tried physical therapy which aggravated her pain. She has also tried Tylenol which gives her minimal relief. She is not able to take anti-inflammatory medicines because she is on Eliquis. At this point her left knee pain is interfering with her activities of daily living and her ability to sleep well through the night. The patient has had injections in the past which gave her minimal relief. Allergies pravastatin Allergy (Mild, Verified 03/11/25 10:15) rash Medication List - Last Reconciled 03/11/25 by Richie Calero MD acyclovir 400 mg PO 2XW albuterol sulfate 2.5 mg inhalation Q4H PRN albuterol sulfate 90 mcg/actuation (Ventolin HFA) 90 mcg inhalation Q4H PRN apixaban (Eliquis) 5 mg PO BID buprenorphine 20 mcg/hour 1 patch topical QWEEK bupropion HCl XL 300 mg PO QAM celecoxib 200 mg PO QPM clonazepam 0.5 mg PO QAM docusate sodium 100 mg PO BID fluticasone furoate 100 mcg/actuation (Arnuity Ellipta) 1 inh inhalation QAM lamotrigine 300 mg PO BEDTIME melatonin 3 mg PO BEDTIME omeprazole 20 mg PO QAM rosuvastatin 10 mg PO BEDTIME sennosides (senna) 8.6 mg PO 2XW tizanidine 4 mg PO BID trazodone 100 mg PO BEDTIME walker Folding front wheeled walker zolpidem 10 mg PO BEDTIME [facility] Medical History Depression Asthma Migraines PVD (peripheral vascular disease) Elevated cholesterol COPD (chronic obstructive pulmonary disease) HTN (hypertension) Arthritis GERD (gastroesophageal reflux disease) Paroxysmal atrial flutter Status post placement of implantable loop recorder WPW (Qyrsj-Dhpxeajpf-Legtn syndrome) Surgical History History of hip surgery Hx of cholecystectomy History of cardiac radiofrequency ablation H/O colonoscopy History of hip surgery History of hip surgery History of back surgery Hx of neck surgery Family History Father HTN (hypertension) Mother HTN (hypertension) Social History Housing Other:: mobile home Are you a primary child care specialist to a significant other at home: No Do you presently have 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) Patient Tobacco Use Status: Current everyday Tobacco user Tobacco use type: Cigarette Cigarettes Per Day: 4 Years Smoked: 47 Current occupational status: disabled Current occupation: Right hand dominate Physical Exam Vital Signs: BMI result Body Mass Index 32.8 Const Other: Well-nourished well-developed very friendly female awake alert and oriented x3 in no acute distress Extrem Other: Bilateral lower extremity examination shows good capillary refill, no skin lesions noted, normal sensation light touch Left knee examination shows a minimal effusion, palpable crepitus with range of motion, pain with range of motion, no instability Right knee examination shows a mild effusion, palpable crepitus with range of motion, pain with range of motion, no instability Results Reviewed Results Reviewed: X-rays of the patient's bilateral knee show end-stage degenerative joint disease with grade 4 [id number] arthritis, subchondral sclerosis, osteophyte formation, no acute bony abnormalities Assessment & Plan Assessment & Plan (1) Left knee pain: Code(s): M25.562 - Pain in left knee Category: Medical (2) Arthritis of right knee: Code(s): M17.11 - Unilateral primary osteoarthritis, right knee Category: Medical (3) Arthritis of left knee: Code(s): M17.12 - Unilateral primary osteoarthritis, left knee Category: Medical Plan Ms. Hickman presents with progressively worsening bilateral knee pains, left greater than right, due to end-stage degenerative joint disease. I had a lengthy discussion with the patient regarding the treatment options. At this point she has failed continued non operative treatments. The risks and benefits of left total knee replacement surgery were discussed at length with the patient. The patient wishes to proceed. If her right knee pain does become more bothersome than as her left at the time of her surgery we could certainly proceed with right total knee replacement surgery 1st. [employer] services manager will be consulted following her surgery for home physical therapy and nursing. The patient will follow-up as instructed. Feel free to call me at any time should questions regarding her orthopedic management arise. I spent 22 minutes in reviewing the patient's records and imaging studies, seeing the patient and documenting in the medical record. Orders: Orders Hemoglobin A1c Today Z01.818 - Encounter for other preprocedural examination Coding Level of Care Code Est Pt Level 3 (14635) Complex EM visit Add On G2211 Diagnoses Left knee pain M25.562 Arthritis of right knee M17.11 Arthritis of left knee M17.12
--- OUTSIDE RECORDS SUMMARY | 2025-03-11 11:00 | XMS_ITS | Clinical Summary ---
Author Organization [facility] [address] [place] [address] [address] [place] [address] Phone Care Team Providers Care Fashion Coordinator Name Role Phone Hosea Douglas Primary Care Provider [phone] Allergies Active Allergy Reactions Criticality Noted Date Comments Pravastatin 06/04/2014 Other Reaction(s): Other (See Comments) Skin rash Medications Cerovite Senior tablet Take 1 tablet by mouth 1 (one) time each day. 04/21/20 24 Active UNABLE TO FIND Take 1 tablet by mouth 1 (one) time each day. Calcium Carb-Cholecalci ferol (Calcium Plus Vitamin D) 500-5 MG-MCG Tab 07/02/20 24 Active tiZANidine (ZANAFLEX) 4 mg tablet TAKE 1 TO 2 TABLETS BY MOUTH EVERY NIGHT AT BEDTIME 05/11/20 24 Active melatonin 3 mg tablet Take 1 tablet by mouth every evening 05/20/20 24 Active fluticasone furoate (Arnuity Ellipta) 100 mcg/actuation blister with device inhaler INHALE 1 PUFF BY MOUTH INTO THE lungs ONCE DAILY 05/11/20 24 Active clonazePAM (KlonoPIN) 0.5 mg tablet TAKE 1 OR 2 TABLETS BY MOUTH EVERY MORNING 03/31/20 24 Active nitrofurantoin, macrocrystal-mo nohydrate, (MACROBID) 100 mg capsule Take 1 Capsule by mouth daily as needed (with sexual activity). 04/13/20 24 Active albuterol HFA (PROAIR HFA ; PROVENTIL HFA ; VENTOLIN HFA) 90 mcg/actuation inhaler Inhale 2 Puffs into the lungs every 4 hours as needed for Cough or Wheezing. 04/13/20 24 Active albuterol 2.5 mg /3 mL (0.083 %) nebulizer solution Take 1 Vial by nebulization every 4 hours as needed for Wheezing, Shortness of Breath or Cough. 04/13/20 24 Active senna (SENOKOT) 8.6 mg tablet Take 1 Tablet by mouth three times a week. 08/07/20 23 Active diclofenac (VOLTAREN) 1 % topical gel Apply 4 g topically 4 times daily as needed for Other (arthritis pain). 12/29/19 23 Active traZODone (DESYREL) 100 mg tablet 2-3 tablets, Psychiatry 11/12/19 23 Active zolpidem (AMBIEN) 10 mg tablet Take 1 Tablet by mouth at bedtime as needed for Insomnia. Psychiatry 11/12/19 23 Active lamoTRIgine (LaMICtal) 150 mg tablet Take 150 mg by mouth daily. 09/04/20 17 Active Oysco 500/D 500 mg-5 mcg (200 unit) per tablet TAKE 1 TABLET BY MOUTH ONCE DAILY 90 tablet 1 10/01/19 25 Active acyclovir (ZOVIRAX) 400 mg tablet Take 1 tablet (400 mg total) by mouth 2 (two) times a day. 180 tablet 3 10/09/19 25 Active FeroSuL 325 mg (65 mg iron) tablet TAKE 1 TABLET BY MOUTH ONCE DAILY 90 tablet 1 12/08/19 25 Active oxyCODONE (ROXICODONE) 10 mg immediate release tablet take 1 tablet by mouth two (2) times a day as needed 12/11/19 25 Active buPROPion XL (WELLBUTRIN XL) 300 mg 24 hr tablet Take 1 tablet (300 mg total) by mouth 1 (one) time each day in the morning. Active lidocaine (LIDODERM) 5 % patchIndication s:Atrial flutter, unspecified type (CMS/HCC V24, CMS/HCC V28),Uncomplica koko asthma, unspecified asthma severity, unspecified whether persistent,Esse ntial hypertension,Ch ronic obstructive pulmonary disease with acute exacerbation (CMS/HCC V24, CMS/HCC V28) Apply 1 patch topically 1 (one) time each day. Apply to painful area 12 hours per day, remove for 12 hours. 30 each 12/16/19 25 Active multivitamin tablet Take 1 tablet by mouth 1 (one) time each day. 30 each 11 12/16/19 25 2025 Active fluticasone propionate (FLONASE) 50 mcg/actuation nasal spray Administer 2 sprays into each nostril 1 (one) time each day. Shake gently. Before first use, prime pump. After use, clean tip and replace cap. 16 g 5 12/16/19 25 2025 Active celecoxib (CeleBREX) 200 mg capsule TAKE 1 CAPSULE BY MOUTH ONCE DAILY 30 capsule 5 12/19/19 25 Active apixaban (Eliquis) 5 mg tablet TAKE 1 TABLET BY MOUTH two (2) times a day 180 tablet 12/19/19 25 Active buprenorphine (BUTRANS) 20 mcg/hour APPLY 1 PATCH TOPICALLY EACH WEEK 02/09/20 25 Active ipratropium (ATROVENT) 42 mcg (0.06 %) nasal spray Administer 2 sprays into each nostril 2 (two) times a day. 30 mL 3 02/16/20 25 Active omeprazole (PriLOSEC) [address] capsule TAKE 1 CAPSULE BY MOUTH ONCE DAILY 30 capsule 5 03/10/20 25 Active rosuvastatin (CRESTOR) 10 mg tablet TAKE 1 TABLET BY MOUTH ONCE DAILY 90 tablet 5 03/10/20 25 Active docusate sodium (COLACE) 100 mg capsule TAKE 1 CAPSULE BY MOUTH two (2) times a day 180 capsule 1 03/11/20 25 Active docusate sodium (COLACE) 100 mg capsule TAKE 1 CAPSULE BY MOUTH two (2) times a day 07/15/20 24 2024 Discontinued omeprazole (PriLOSEC) [address] capsule Take 1 capsule (20 mg total) by mouth 1 (one) time each day. 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 Asthma 02/13/2022 Paroxysmal atrial fibrillation (CMS/HCC V24, CMS /HCC V28) 02/13/2022 Primary osteoarthritis of right hip [...] rpt colonoscopy in 3 years Atrial flutter (CMS/HCC V24, CMS/HCC V28) 2013 Overview (08/19/2024): Atrial flutter ablation March 2017 Medtronic ILR implanted for amaurosis fugax Anticoagulated with apixaban Last Assessment & Plan: The patient has not had any recurrent atrial fibrillation on ILR interrogations. She remains on anticoagulation with apixaban. We will arrange for an evaluation with Dr. Matos from as she did not have a visit with him after our last visit. This is to determine the ongoing necessity of anticoagulation. Borderline abnormal TFTs 02/24/2013 Hyperlipidemia 02/24/2013 Overview (08/19/2024): Last Assessment & Plan: Continue Dietary modification Major depression 02/24/2013 Overview (08/19/2024): Follows with Ansley Lobo PVD (peripheral vascular disease) ([facility] V24) 02/24/2013 COPD (chronic obstructive pu lmonary disease) ([facility] V24, [facility] V28) 10/28/2012 Insomnia 10/28/2012 Abdominal pain 07/24/2012 Knee pain 01/30/2010 Patella, chondromalacia 01/30/2010 Low back pain 01/13/2010 Radiculitis, lumbosacral 01/13/2010 Lumbar spondylosis 01/07/2010 Migraine 12/12/2007 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): Had open heart surgery Encounters Date Type Department Care Team Description 03/08/2025 Telephone Adult Medicine [address] [phone] Hosea Douglas PA Fitting for DME 03/03/2025 1:00 PM EDT Office Visit Orthopedic Surgery [facility] [address] [facility] [address] [place] [phone] Kamar Smith DPM PVD (peripheral vascular disease) ([facility] V24) (Primary Dx); Pain in toes of both feet; Arthritis of both feet; Dermatophytosis, nail 02/18/2025 12:45 PM EDT - 02/18/2025 11:59 PM EDT Hospital Encounter [facility] CT Scan [address] [place] [address] Encounter for screening for malignant neoplasm of respiratory organs; Nicotine dependence, cigarettes, uncomplicated Discharge Disposition: Home or Self Care 02/15/2025 10:00 AM EDT Consult Adult Medicine [address] [phone] Hosea Douglas PA Preoperative cardiovascular examination (Primary Dx); Essential hypertension; Arthritis of left knee; Abnormal level of blood mineral 01/26/2025 Telephone Lung Screening Program - [address] [address] Helen Leach [place] Appointment (1st Notification) 12/15/2024 12:45 PM EDT Office Visit Adult Medicine [address] [phone] Hosea Douglas PA Essential hypertension (Primary Dx); Atrial flutter, unspecified type (CMS/HCC V24, CMS/HCC V28); Uncomplicated asthma, unspecified asthma severity, unspecified whether persistent; Chronic obstructive pulmonary disease with acute exacerbation (CMS/HCC V24, CMS/HCC V28); Other abnormal glucose; Need for vaccination against Streptococcus pneumoniae; Other hyperlipidemia; Paroxysmal atrial fibrillation (CMS/HCC V24, CMS/HCC V28); PVD (peripheral vascular disease) (CMS/HCC V24) 12/15/2024 Telephone Adult Medicine [address] [phone] Hosea Douglas PA PT-1 from Last 3 [...] PROCEDURE: HISTORICAL TONSILLECTOMY OTHER SURGICAL HISTORY PROCEDURE: FL LIG/TRNSXJ FLP TUBE ABDL/VAG APPR UNI/BI OTHER SURGICAL HISTORY 08/2014 PROCEDURE: FL UNLISTED PROCEDURE SPINE; COMMENT: L4- L5 lumbar fusion COLONOSCOPY 04/17/2016 PROCEDURE: HISTORICAL COLONOSCOPY; COMMENT: 10 mm sigmoid colon polyp: Tubulovillous adenoma. OTHER SURGICAL HISTORY 03/2018 PROCEDURE: FL RMVL TOT DISC ARTHRP ANT 1 INTERSPACE CERVICAL; COMMENT: cer disckectomy C5- C7 OTHER SURGICAL HISTORY 01/08/2022 PROCEDURE: FL ANESTHESIA OPEN TOTAL HIP ARTHROPLASTY; COMMENT: dr. angel, done in [place] OTHER SURGICAL HISTORY 05/22/2022 Right PROCEDURE: FL ANESTHESIA OPEN TOTAL HIP ARTHROPLASTY; COMMENT: [facility] [...] s COPD (chronic obstructive pu lmonary disease) ([facility] [place]24, [facility] V28) 10/28/2012 DX:COPD (chronic o bstructive pulmonary disease) ([facility]) Insomnia 10/28/2012 DX:Insomnia PVD (peripheral vascular dis ease) ([facility] [place]24) 02/24/2013 DX:PVD (peripheral vascular disease) ([facility]) Major depression 02/24/2013 DX:Major depres jon Borderline abnormal TFTs 02/24/2013 DX:Bord jaime abnormal TFTs Need for hepatitis C screening test 02/24/2013 DX:Need for hepatitis C screening test Historical Medical DX 01/07/2010 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 Atrial flutter ([facility] [place]24, [facility] V28) 08/03/2014 DX:Atrial flutter ([facility]) History of colonoscopy 04/17/2016 DX:Histor y of [...] 02/24/2013 DX:Hyperlipidemi a Paroxysmal atrial fibrillati on ([facility] [place]24, [facility] V28) 02/13/2022 DX:Paroxysmal atrial fibril lation ([facility]) Asthma 02/13/2022 Essential hypertension 12/22/2020 Family History [...] Date Smoking Tobacco: Every Day Cigarettes 0.5 51.8 Started: 1973 Smokeless Tobacco: Never Tobacco Cessation:Ready [...] care for your loved ones. For example, children's counselor or elderly care for an older adult? [...] Sign Reading Time Taken Comments Blood Pressure 139/88 02/15/2025 9:57 AM EDT Pulse 74 02/15/2025 9:57 AM EDT Temperature 35.3 ??C (95.5 ??F) 02/15/2025 9:57 AM ED T Respiratory Rate 14 02/15/2025 9:57 AM EDT Oxygen Saturation - - Inhaled Oxygen Concentration - - Weight 80.7 kg (178 lb) 03/03/2025 12:52 PM EDT Height 160 cm (5' 2.99 ) 03/03/2025 12:52 PM EDT Body Mass Index 31.54 03/03/2025 12:52 PM EDT Plan of Treatment Upcoming Encounters Date Type Department Care Team (Late st Contact Info) Description 06/03/2025 1:30 PM EDT Office Visit Orthopedic Surgery [place] [phone] [phone] Kamar Smith, ESSIE [address] [address] 06/18/2025 2:30 PM EDT Office Visit Adult Medicine [facility] [address] [place] [phone] Hosea Douglas PA [address] [place] [address] Health Maintenance Due Date Last Done Comments Zoster Vaccines (1 of 2) 2011 RSV Immunization Adult Patients (1 - Risk 60-74 years 1-dose series) 2021 HIV Screening 09/08/2022 Medicare Annual Wellness Visit 09/08/2022 COVID-19 Vaccine ( season) 2024 02/21/2022, 04/21/2021, 04/06/2021, Additional history exists Depression Screening 11/25/2024 11/25/2023 Influenza Vaccine (Season Ended) 2025 06/30/2023, 07/02/2022, 09/14/2021, Additional history exists Breast Cancer Screening 08/05/2025 08/05/20, 02/04/2021, 08/01/2019 Social Influencers of Health Screening 12/02/2025 12/02/2024 Hypertension/CHF/CAD Annual BMP Blood Test 12/15/2025 12/15/2024, 05/25/2024, 05/25/2024 Colorectal Cancer Screening: Colonoscopy 01/28/2026 02/03/2021 Lung Cancer Screening (Low Dose CT) 02/18/2026 02/18/2025, 02/05/2024, 02/04/2024, Additional history exists Cervical Cancer Screening: HPV 07/05/2027 07/05/2022 Cholesterol [...] Procedure Name Priority Date/Time Associated Diagnosis Comments CT LUNG SCREENING Routine 02/18/2025 1:4 3 PM EDT Encounter for screening for malignant neoplasm of respiratory organs Nicotine dependence, cigarettes, uncomplicated ECG 12-LEAD TRACING ONLY Routine 02/15/2025 10:34 AM EDT Essential hypertension Preoperative cardiovascular examination Arthritis of left knee CBC WITH AUTO DIFFERENTIAL Routine 12/15/2024 1:59 [...] with acute exacerbation (CMS/HCC V24, CMS/HCC V28) Other abnormal glucose CBC AND DIFFERENTIAL Routine 12/15/2024 1:59 PM EDT Preop examination THYROID STIMULATING HORMONE WITH REFLEX TO FREE T4 AND FREE T3 Routine 12/15/2024 1:59 PM EDT Atrial flutter, unspecified type (CMS/HCC V24, CMS/HCC V28) Uncomplicated asthma, unspecified asthma severity, unspecified whether persistent Essential hypertension Chronic obstructive pulmonary disease with acute exacerbation (CMS/HCC V24, CMS/HCC V28) DEPRESSION SCREENING Routine 11/25/2023 DIAGNOSTIC MAMMOGRAPHY INCLUDING CAD BILATERAL Routine 08/05/2023 2:18 PM EST Mastodynia HPV Routine 07/05/2022 COLONOSCOPY Routine 02/03/2021 HEPATITIS C SCREENING Routine 06/05/2013 from Last 3 Months or Most Recently Relevant to Health Maintenance Results * CT Lung Screening (02/18/2025 1:43 PM EDT) Anatomical Region Laterality Modality Chest Computed Tomogra phy 02/19/2025 5:41 AM EDT Impressions 02/19/2025 5:47 AM EDT No suspicious pulmonary nodules Lung RADS 2: Benign Appearance or Behavior - Continue annual screening with LDCT in 12 months. -------- FINAL REPORT -------- Dictated By: Marla Crenshaw Dictated Date: 02/19/2025 05:41 ET Assigned Physician: Marla Crenshaw Reviewed and Electronically Signed By: Marla Crenshaw Signed Date: 02/19/2025 05:47 ET Workstation ID: [id number] Transcribed By: Self Edit Transcribed Date: 02/19/2025 05:41 ET Narrative 02/19/2025 5:47 AM EDT Indication: Greater than 20 total pack-year smoking history, asymptomatic ??current smoker Technique: Low-dose CT scan of the chest obtained as a lung cancer screening study. Multiplanar reformatted images were obtained. ??Dose reduction technique: ASIR (Adaptive statistical iterative reconstruction) and/or AEC (automated exposure control) DLP: ??167.37 mGy-cm COMPARISON: January 2024. FINDINGS: Lack of intravenous contrast limits evaluation of the ricardo, vascular structures and visualized abdominal viscera. ?? Lungs/airways: Central airways are patent. ??Increased subpleural reticularity. 5 mm juxtapleural nodule in the left lower lobe which is similar to prior (series 4, image 148). ??Other scattered pulmonary nodules are similar to prior. Base of the neck, mediastinum, heart, chest wall, vessels: ??The assessment of hilar lymphadenopathy is difficult without the use of IV contrast. ??Thyroid gland is unremarkable. ??No enlarged mediastinal lymph nodes. ??Thoracic aortic and aortic annular calcifications. ?? Upper abdomen: This study was performed without contrast and with lower than standard dose. These factors reduce the sensitivity for detection of small lesions in the upper abdomen. Cholecystectomy. Bones/soft tissues: Degenerative changes Procedure Note Marla Crenshaw MD - 02/19/2025 Indication: Greater than 20 total pack-year smoking history, asymptomaticcurrent smoker Technique: Low-dose CT scan of the chest obtained as a lung cancerscreening study. Multiplanar reformatted images were obtained. Dosereduction technique: ASIR (Adaptive statistical iterative reconstruction)and/or AEC (automated exposure control) DLP: 167.37 mGy-cm COMPARISON: January 2024. FINDINGS: Lack of intravenous contrast limits evaluation of the ricardo,vascular structures and visualized abdominal viscera. Lungs/airways: Central airways are patent. Increased subpleuralreticularity. 5 mm juxtapleural nodule in the left lower lobe which is similar to prior(series 4, image 148). Other scattered pulmonary nodules are similar toprior. Base of the neck, mediastinum, heart, chest wall, vessels: The assessmentof hilar lymphadenopathy is difficult without the use of IV contrast.Thyroid gland is unremarkable. No enlarged mediastinal lymph nodes.Thoracic aortic and aortic annular calcifications. Upper abdomen: This study was performed without contrast and with lowerthan standard dose. These factors reduce the sensitivity for detection ofsmall lesions in the upper abdomen. Cholecystectomy. Bones/soft tissues: Degenerative changes IMPRESSION: No suspicious pulmonary nodules Lung RADS 2: Benign Appearance or Behavior - Continue annual screeningwith LDCT in 12 months. -------- FINAL REPORT -------- Dictated By: Marla Crenshaw Dictated Date: 02/19/2025 05:41 ET Assigned Physician: Marla Crenshaw Reviewed and Electronically Signed By: Marla Crenshaw Signed Date: 02/19/2025 05:47 ET Workstation ID: [id number] Transcribed By: Self Edit Transcribed Date: 02/19/2025 05:41 ET Carol Leos MD IMG CT PROCEDURES Final Result * ECG 12 lead Tracing Only (02/15/2025 10:34 AM EDT) Hosea CERVANTES ECG ORDERABLES Final Res ult * Thyroid stimulating hormone with reflex to free t4 and free t3 (12/15/2024 1:59 PM EDT) [facility] TSH 0.85 0.40 - 4.00 mcIU/mL LAB CHEMISTRY METHOD 12/15/2024 5:15 PM EDT [facility] Blood Venous blood specimen / Unknown Venipuncture / Unknown 12/15/2024 1:59 PM EDT 12/15/2024 1:59 PM EDT Hosea CERVANTES LAB BLOOD ORDERABLES Tanisha l Result [facility] [address] [place] [address], [place] [phone] * Lipid panel with reflex to direct LDL (12/15/2024 1:59 PM EDT) [facility] Cholesterol 177 0 - 200 mg/dL LAB CHEMISTRY METHOD 12/15/2024 5:06 PM EDT [facility] Triglycerides 130 0 - 150 mg/dL LAB CHEMISTRY METHOD 12/15/2024 5:06 PM EDT [facility] HDL 56 >=40 mg/dL LAB CHEMISTRY METHOD 12/15/2024 5:06 PM EDT [facility] LDL Calculated 95 0 - 100 mg/dL LAB CHEMISTRY METHOD 12/15/2024 5:06 PM EDT [facility] VLDL Cholesterol Luigi 26 mg/dL LAB CHEMISTRY METHOD 12/15/2024 5:06 PM EDT [facility] Non HDL Chol. (LDL+VLDL) 121 <145 mg/dL LAB CHEMISTRY METHOD 12/15/2024 5:06 PM EDT [facility] Chol/HDL Ratio 3.2 0.0 - 4.4 LAB CHEMISTRY METHOD 12/15/2024 5:06 PM EDT [facility] Blood Venous blood specimen / Unknown Venipuncture / Unknown 12/15/2024 1:59 PM EDT 12/15/2024 1:59 PM EDT Hosea CERVANTES LAB BLOOD ORDERABLES Tanisha l Result [facility] [address] [place] [address], * (ABNORMAL) CBC auto differential (12/15/2024 1:59 PM EDT) WBC 7.2 4.8 - 10.8 K/mcL LAB HEMETOLOGY METHOD 12/15/2024 5:02 PM EDT [facility] RBC 5.00(H) 3.80 - 4.80 M/mcL LAB HEMETOLOGY METHOD 12/15/2024 5:02 PM EDT [facility] Hemoglobin 14.8 11.5 - 16.0 g/dL LAB HEMETOLOGY METHOD 12/15/2024 5:02 PM EDT [facility] Hematocrit 46.0 35.0 - 47.0 % LAB HEMETOLOGY METHOD 12/15/2024 5:02 PM [facility] MCV 92.0 79.0 - 98.0 FL LAB HEMETOLOGY METHOD 12/15/2024 5:02 PM [facility] MCH 29.6 27.0 - 32.0 pcg LAB HEMETOLOGY METHOD 12/15/2024 5:02 PM [facility] MCHC 32.2 32.0 - 37.0 g/dL LAB HEMETOLOGY METHOD 12/15/2024 5:02 PM [facility] RDW 14.1 11.0 - 15.0 % LAB HEMETOLOGY METHOD 12/15/2024 5:02 PM [facility] Platelets 258 130 - 400 K/mcL LAB HEMETOLOGY METHOD 12/15/2024 5:02 PM [facility] MPV 10.8 7.0 - 11.0 FL LAB HEMETOLOGY METHOD 12/15/2024 5:02 PM [facility] NRBC 0.0 <1.0 % LAB HEMETOLOGY METHOD 12/15/2024 5:02 PM [facility] NRBC Absolute 0.00 <0.10 K/mcL LAB HEMETOLOGY METHOD 12/15/2024 5:02 PM [facility] Neutrophils Relative 53.3 % LAB HEMETOLOGY METHOD 12/15/2024 5:02 PM [facility] Lymphocytes Relative 36.7 % LAB HEMETOLOGY METHOD 12/15/2024 5:02 PM [facility] Monocytes Relative 7.7 % LAB HEMETOLOGY METHOD 12/15/2024 5:02 PM [facility] Eosinophils Relative 1.4 % LAB HEMETOLOGY METHOD 12/15/2024 5:02 PM [facility] Basophils Relative 0.8 % LAB HEMETOLOGY METHOD 12/15/2024 5:02 PM EDT [facility] Immature Granulocytes Relative 0.1 % LAB HEMETOLOGY METHOD 12/15/2024 5:02 PM EDT [facility] Neutrophils Absolute 3.82 1.50 - 7.00 K/mcL LAB HEMETOLOGY METHOD 12/15/2024 5:02 PM EDT [facility] Lymphocytes Absolute 2.63 1.00 - 5.00 K/mcL LAB HEMETOLOGY METHOD 12/15/2024 5:02 PM EDT [facility] Monocytes Absolute 0.55 0.20 - 1.00 K/mcL LAB HEMETOLOGY METHOD 12/15/2024 5:02 PM EDT [facility] Eosinophils Absolute 0.10 0.00 - 0.50 K/mcL LAB HEMETOLOGY METHOD 12/15/2024 5:02 PM EDT [facility] Basophils Absolute 0.06 0.00 - 0.20 K/mcL LAB HEMETOLOGY METHOD 12/15/2024 5:02 PM EDT [facility] Immature Granulocytes Absolute 0.01 0.00 - 0.03 K/mcL LAB HEMETOLOGY METHOD 12/15/2024 5:02 PM EDT [facility] Blood Venous blood specimen / Unknown Venipuncture / Unknown 12/15/2024 1:59 PM EDT 12/15/2024 1:59 PM EDT us Hosea CERVANTES LAB BLOOD ORDERABLES Tanisha l Result [facility] [address] [place] [address], * Iron and TIBC (12/15/2024 1:59 PM EDT) Iron 67 40 - 150 mcg/dL LAB CHEMISTRY METHOD 12/15/2024 5:06 PM EDT [facility] TIBC 258 250 - 450 mcg/dL LAB CHEMISTRY METHOD 12/15/2024 5:06 PM EDT [facility] Iron Saturation 26 15 - 50 % LAB CHEMISTRY METHOD 12/15/2024 5:06 PM EDT [facility] Blood Venous blood specimen / Unknown Venipuncture / Unknown 12/15/2024 1:59 PM EDT 12/15/2024 1:59 PM EDT Hosea Douglas [place] LAB BLOOD ORDERABLES Tanisha l Result Performing Organization Address City/[facility]/ZIP Co de Phone Number [facility] [address] [place] [address], [place] [phone] * Hemoglobin A1c (12/15/2024 1:59 PM EDT) Pathologist [facility] Hemoglobin A1C 5.3 <6.5 % LAB CHEMISTRY METHOD 12/15/2024 9:00 PM EDT [facility] Mean Bld Glu Estim. 105 mg/dL LAB CHEMISTRY METHOD 12/15/2024 9:00 PM EDT [facility] Blood Venous blood specimen / Unknown Venipuncture / Unknown 12/15/2024 1:59 PM EDT 12/15/2024 1:59 PM EDT Hosea Douglas [place] LAB BLOOD ORDERABLES Tanisha l Result [facility] [address] [place] [address], [place] [phone] * (ABNORMAL) Comprehensive metabolic panel (12/15/2024 1:59 PM EDT) Sodium 136 133 - 145 mmol/L LAB CHEMISTRY METHOD 12/15/2024 5:07 PM EDT [facility] Potassium 4.3 3.5 - 5.5 mmol/L LAB CHEMISTRY METHOD 12/15/2024 5:07 PM EDT [facility] Chloride 104 96 - 110 mmol/L LAB CHEMISTRY METHOD 12/15/2024 5:07 PM [facility] CO2 30 21 - 32 mmol/L LAB CHEMISTRY METHOD 12/15/2024 5:07 PM [facility] Anion Gap 2(L) 3 - 11 LAB CHEMISTRY METHOD 12/15/2024 5:07 PM [facility] Glucose 81 70 - 100 mg/dL LAB CHEMISTRY METHOD 12/15/2024 5:07 PM [facility] BUN 12 5 - 25 mg/dL LAB CHEMISTRY METHOD 12/15/2024 5:07 PM [facility] Creatinine 1.04 0.50 - 1.10 mg/dL LAB CHEMISTRY METHOD 12/15/2024 5:07 PM [facility] eGFR 61 >=60 mL/min/1. 73m2 LAB CHEMISTRY METHOD 12/15/2024 5:07 PM [facility] [facility] Comment:Calculation based on the??Chronic Kidney Disease Epidemiology Collaboration (CKD-EPI) equation refit??without adjustment for race. BUN/Creatinine Ratio 11.5 LAB CHEMISTRY METHOD 12/15/2024 5:07 PM [facility] Calcium 9.3 8.5 - 10.5 mg/dL LAB CHEMISTRY METHOD 12/15/2024 5:07 PM [facility] AST (SGOT) 11 10 - 42 unit/L LAB CHEMISTRY METHOD 12/15/2024 5:07 PM [facility] ALT (SGPT) 15 10 - 60 unit/L LAB CHEMISTRY METHOD 12/15/2024 5:07 PM [facility] Alkaline Phosphatase 130(H) 42 - 121 unit/L LAB CHEMISTRY METHOD 12/15/2024 5:07 PM [facility] Total Protein 7.0 6.0 - 8.0 g/dL LAB CHEMISTRY METHOD 12/15/2024 5:07 PM EDT [facility] Albumin 3.8 3.2 - 5.0 g/dL LAB CHEMISTRY METHOD 12/15/2024 5:07 PM EDT [facility] Total Bilirubin 0.4 0.0 - 1.4 mg/dL LAB CHEMISTRY METHOD 12/15/2024 5:07 PM EDT [facility] Blood Venous blood specimen / Unknown Venipuncture / Unknown 12/15/2024 1:59 PM EDT 12/15/2024 1:59 PM EDT [facility] BLOOD ORDERABLES Tanisha rosales Result [facility] [address] [place] [address], [place] [phone] * Depression Screening (11/25/2023) Depression Screening abstracted [...] Recommendation: Routine annual screening mammography is recommended us [facility] IMG BI PROCEDURES Final R esult * Cervical Cancer Screening: HPV (07/05/2022) Pathologist [facility] Cervical Cancer Screening: HPV abstracted, negative Historical Provider HEALTH MAINTENANCE Final Result * Colonoscopy (02/03/2021) Pathologist [facility] Colonoscopy abstracted, no interpretation Anatomical Region Laterality Modality Other Historical Provider HEALTH MAINTENANCE Final Result * Hepatitis C Screening (06/05/2013) Pathologist [facility] Hepatitis C Screening abstracted Historical Provider HEALTH MAINTENANCE Final Result from Last 3 Months or Most Recently Relevant to Health Maintenance Insurance [place] Care Teams Fashion Coordinator Relationship Specialty Start Date End Date Hosea Douglas PA [address] [place] [address] PCP - General Internal Medicine 02/01/21
== END 2025-03-11 10:30 | disposition home or self-care (01) ==
PROVIDERS: PCP Physician Assistant Medical; Visit Provider Orthopaedic Surgery
DX: M25.562 Pain in left knee (principal); M17.0 Bilateral primary osteoarthritis of knee
CPT/HCPCS: 99214

== ENCOUNTER → 2025-03-11 09:51 | Outpatient (BNVA) | payer MEDICARE, MEDICAID, SELFPAY | PROVIDERS: PCP Physician Assistant Medical; Visit Provider Orthopaedic Surgery | DX: Z01.818 Encounter for other preprocedural examination (principal); M17.0 Bilateral primary osteoarthritis of knee | CPT/HCPCS: 99212 ==

== ENCOUNTER 2025-03-15 06:31 | Day surgery (SDC) | payer MEDICARE, MEDICAID, SELFPAY ==
--- OUTSIDE RECORDS SUMMARY | 2025-01-27 12:55 | XMS_ITS | Data Portability ---
Author Organization [place] [facility] Address [address] [place] [id number] Care Team Providers Care Flexographic Press Helper Name Role Phone TANYA MA Primary Care Provider Assessment Encounter Date Assessment Date Assessment LastModified by Organization Details LastModified Time 08/11/2019 08/11/2019 Overview/History : 59-year-old female with COPD and 4 days of cough, fever, runny nose. Negative influenza swab today. Using DayQuil, NyQuil, and Tylenol for relief. Fever of 102.7 degrees Fahrenheit last night, last Tylenol usage approximately 2 hours prior to exam. Exam: Tired appearing female, afebrile. Heart sounds regular, lung sounds clear. No sinus tenderness noted, ears without erythema, TMs normal. Oropharynx without erythema or exudates, no cervical lymphadenopathy. DDx considered, but not limited to: Consider viral respiratory infection given the time course and fever. Consider influenza however test negative on exam. Consider pneumonia given fever and cough and will obtain x-ray to evaluate for this. Consider bacterial respiratory infection however given time course, this is unlikely. Work up/Results: Nasopharyngeal swab negative for influenza. Plan/Discussion: Likely viral due to time course. Will obtain chest x-ray to rule out pneumonia, further orders pending results. Continue OTC cold medication per package direction for relief. Continue acetaminophen per package direction for relief of fever. Saline nasal spray throughout the day as needed. Warm salt water gargles throughout the day for symptomatic relief. Drink plenty of fluids. Get rest. Patient instructed to call if symptoms worsen or do not improve; patient acknowledges understands and agrees with plan. Note created with voice recognition software and may contain grammatical errors due to this. Patients PCP contacted and updated on patient status. Patient verbalized understanding of discharge instructions and when to follow up with PCP/911/ED as needed. Patient in agreement with current plan and treatment. Time On Scene with Patient: 00:41:39 [email or web address] Not available 08/11/2019 20:53:56 08/15/2019 08/15/2019 Overview/History : Pt is a 59yo F with PMH sig for COPD and depression who calls today with continued cough, fever, chills, nasal congestion and body aches. States the cough seems a little better but that she is now bringing up yellow phlegm. Exam: Pt is A/Ox3, non-toxic but fatigued appearing, VSS, HRR, resp reg and unlabored on RA, lungs dim bilat throughout with faint rhonchi noted in the bases. lung sounds less dim after neb. HEENT exam pos for mild erythema to bilat TMs and mild cobble stoning. DDx considered, but not limited to: PNA: possible given fever, productive cough, fatigue, lenght of sx, and rhonchi Bronchitis: possible given sx and hx of COPD URI: unlikely, time line is now starting to support bacterial cause of sx Sinusitis: possible given HEENT findings. Work up/Results: CXR: still pending Plan/Discussion: Pt given neb tx with good effect, pt started on prednisone and doxy for sx and given physcial findings. Pt advised to still follow up for CXR to better eval cause of sx. Patients PCP contacted and updated on patient status. Patient verbalized understanding of discharge instructions and when to follow up with PCP/911/ED as needed. Patient in agreement with current plan and treatment. In order to obtain further information and compare any laboratory results/values, I have accessed old patient records. This information was pertinent in my medical decision making today. Time On Scene with Patient: 00:20:30 [email or web address] Not available 08/15/2019 22:02:07 Plan of Treatment Reminders Order Date Submit Date Provider Last Modified By Organization Details Last Modified Time Details Appointments None recorded. Lab rapid flu (A+B) 2018 019 [facility], [address] [place] [address], [id number], 9 19:27:45 Referral None recorded. Procedures None recorded. Surgeries None recorded. Imaging XR, chest, 2 view - Ordered by [facility] 2018 019 [facility], [address] , [place], [address], 9 05:36:28 Medication Orders ipratropi um 0.5 mg-albute rol 3 mg (2.5 mg base)/3 mL nebulizat ion soln 2018 019 [facility]armacy #[id number], [address] [place], [address], 9 21:03:08 doxycycli ne hyclate 100 mg capsule 2018 019 [facility]/Pharmacy #[id number], [address] [place], [address], 9 21:03:10 prednison e 20 mg tablet 2018 019 [facility]/Pharmacy #[id number], [address] [place] [address], [id number], 9 21:03:10 prednison e 10 mg tablet 2018 019 [facility]armacy #[id number], [address] [place] [address], [address], 9 21:03:08 doxycycli ne hyclate 100 mg capsule 2018 019 [facility]acy #[id number], [address] [place] [address], [id number], 9 21:03:08 Patient TargetsNo targets recorded. Patient Instructions Encounter Date Encounter Id Patient Instructions Last Modified By Organization Details Last Modified Time 08/11/2019 [id number] Viral Illness Discharge Instructions BASIC INFORMATION A viral infection can range anywhere between a common cold and influenza. Most viruses will respond to a combination of time and supportive care. Viruses are eliminated by the bodies immune system and do not respond to antibiotics. Viruses can cause many different symptoms including runny stuffy nose, sore throat, headache, fever, body aches, cough, nausea, vomiting,diarrhea. Most of the viral illnesses are spread by hand to face contact, and the rest are spread through sneezing and coughing which releases virus into the air. Over the counter medications can help to relieve annoying symptoms. Occasionally having a virus may cause a secondary bacterial infection such as ear infections, pneumonia, sinusitis. INSTRUCTIONS Keeping your body as healthy as possible will help to limit your illness. Get plenty of rest Drink lots of fluids (water, herbal tea, gatorade) Reduce your risk of getting or giving a cold by avoiding touching your face with your hands. When you cough and sneeze cover your mouth/nose by placing your elbow or upper arm over the area rather than using your hand. Use a teaspoon of honey(avoid organic honey in infants and small children < 1 year) at bedtime to soothe your throat and ease cough. Sleep with head of bed elevated to promote drainage of secretions. Hot showers and humidifiers can help to loosen secretions. Tylenol over the counter can be helpful for aches and fever. Suck on hard, sugar-free candy during the day to keep the throat moist. MEDICATIONS Over the counter remedies are not recommended for young children, but can help relieve symptoms temporarily in adults. In general it is better to take only the medication you need rather than using combination products that contain ingredients that are unnecessary and may cause side effects. 1. Antihistamines (Benadryl, Chlor-Trimeton, Zyrtec, Claritin, [place]) reduce secretions, but can cause drowsiness and sedation, do not drink alcohol or drive while taking these medications. 2. Decongestants (Phenylephrine, Sudafed) can help to shrink swollen nasal passages and dry secretions, but may cause palpitations, anxiety,and are not safe for people with High blood pressure or heart arrhythmias. 3. Topical Decongestants (Afrin/Aroldo-synephr ine) can be very helpful for acute relief of nasal swelling and runny nose, HOWEVER they should not be used regularly for more than 3 days as they will cause rebound congestion if over-used. 4. Cough aids generally contain DM( Dextromethorphan) which is a cough suppressant and Guaifenesin which is an expectorant. While the DM portion can be helpful for suppressing the cough, guaifenesin, particularly as dosed in Mucinex like products has minimal effect and may cause nausea. 5. Tamiflu an anti-viral agent may be prescribed if you are diagnosed with influenza. Viral symptoms usually last between 5-10 days, it is not uncommon to have a mild cough for up to 6 weeks afterward. If you have been diagnosed with influenza you should minimize your contact with others. You may return to work/school after 24 hours of being fever free without medication (usually 5-10 days). FOLLOW UP if your symptoms are not improving in 7-10 days If you have severe ear pain, sinus pain, cough productive large amounts of mucus, wheezing. You have underlying medical problems that may become worse as a result of your viral illness (asthma, diabetes, COPD) and need to follow up to ensure you are improving. SEEK CARE IMMEDIATELY IF 1 Severe headache unresponsive to Tylenol or severe neck stiffness 2. Confusion 3. Severe chest pain 4. Difficulty breathing 5. Persistent vomiting 6. Cough productive large amounts of sputum or blood 7. Inability to keep liquids down 8. Fever unresponsive to medication over 102 If you develop any new or worsening symptoms and need after hours care, please go to nearest ER and/or call 911. If you have additional concerns or develop a change in your condition between 8am-10pm, please call [facility] at [phone] to help navigate your care. [email or web address] Not available 08/11/2019 19:28:10 08/15/2019 [id number] Thank you for yo ur [facility]. We cannot always find the exact cause of your symptoms during your initial visit. You were seen today as a follow up for a cough. Given that your symptoms have not improved and you conintue to have a fever, you were started on steroids and antibiotics for pneumonia at this time. Please follow up with your primary care provider or specialist as needed to be rechecked or seek medical attention if your symptoms do not go away or get worse. If you develop any new or worsening symptoms and need after hours care, please go to nearest ER and/or call 911. If you have additional concerns or develop a change in your condition between 8am-10pm, please call [facility] at [phone] to help navigate your care. [email or web address] Not available 08/15/2019 21:03:05 Reason for Referral None Reported. Results Created Date Observation Date Name Description Value Unit Range Abnormal Flag Note LastModifiedBy Organization Detail LastModifiedTime 08/11/20 19 08/11/2019 rapid flu (A+B) Flu A negati ve Not Available [facility] [address] [place], [address], 08/11/2019 19:18:15 08/11/20 19 08/11/2019 rapid flu (A+B) Flu B negati ve Not Available [facility] - [facility] [address] [place], [address], 08/11/2019 19:18:15 08/11/20 19 08/11/2019 rapid flu (A+B) Control Visual ized / Valid Not Available [facility] - [facility] [address] [place], [address], 08/11/2019 19:18:15 Result Notes None recorded. Problems Name Problem SNOMED Code Status Onset Date Resolution Date Notes Provider Name and Address Organization Details Recorded Time Chronic obstructive pulmonary disease 15368066 Active 2018 OCTAVIO ROOT NP [address] [place], [address], [place] [facility] 9 21:03:35 Problem Notes None recorded. Procedures Surgical History Date Name Laterality Status Provider Name and Address Organization Details Recorded Time 9 Nebulizer treatment - DH completed OCTAVIO ROOT NP [address] [place], [address], [place] [facility] 08/15/2019 21:55:13 Imaging Results None recorded. Procedure Notes None recorded. Medical Equipment None Reported. Allergies No known drug allergies Medications Name Sig Start Date Stop Date Status Note LastModified by Organization Details LastModified Time amoxicillin 500 mg capsule 08/11 completed Not Available Not Available Not Available prednisone 10 mg tablet Take 4 tablets every day by oral route for 1 day. 2018 active Not Available Not Available Not Avai lable gabapentin 600 mg tablet active Not Available Not Available Not Available doxycycline hyclate 100 mg capsule Take 1 capsule twice a day by oral route. 2018 active Not Available Not Available Not Avai lable lamotrigine 200 mg tablet active Not Available Not Available Not Available ipratropium 0.5 mg-albutero l 3 mg (2.5 mg base)/3 mL nebulizatio n soln Inhale 3 mL 4 times a day by nebulizat ion route. 2018 active Not Available Not Available Not Avai lable prednisone 20 mg tablet Take 2 tablets every day by oral route for 4 days. 2018 active Not Available Not Available Not Avai lable clonazepam 1 mg tablet active Not Available Not Available Not Available acyclovir 400 mg tablet active Not Available Not Available Not Available oxycodone 15 mg tablet active Not Available Not Available Not Available trazodone 100 mg tablet active Not Available Not Available Not Available omeprazole 20 mg capsule,del ayed release active Not Available Not Available Not Available zolpidem 10 mg tablet active Not Available Not Available No t Available Ventolin HFA 90 mcg/actuati on aerosol inhaler active Not Available Not Available Not Available bupropion HCl XL 300 mg 24 hr tablet, extended release active Not Available Not Available Not Available Flovent HFA 110 mcg/actuati on aerosol inhaler active Not Available Not Available Not Available Senexon active Not Available Not Avail able Not Available Doculace active Not Available Not Avai lable Not Available Cerovite Senior active Not Available Not Available Not Available Eliquis 5 mg tablet active Not Available Not Available No t Available OxyContin 60 mg tablet,ghazala h resistant,e xtended release active Not Available Not Available Not Available Vitals Date Recorded Heart rate Respiratory rate Oxygen saturation Oxygen saturation in Arterial blood by Pulse oximetry Body temperature Systolic blood pressure Diastolic blood pressure Provider Name and Address Organization Details Last Updated DateTime 9 98 /min 18 /min 93 % 93 % 98.4 [degF] 106 mm[Hg] 58 mm[Hg] Not Available [facility] 9 19:02:55 Date Recorded Oxygen saturation Oxygen saturation in Arterial blood by Pulse oximetry Heart rate Body temperature Respiratory rate Systolic blood pressure Diastolic blood pressure Provider Name and Address Organization Details Last Updated DateTime 9 94 % 94 % 78 /min 98.4 [degF] 20 /min 118 mm[Hg] 76 mm[Hg] Not Available [facility] 9 20:54:14 Social History Question Answer Notes LastModified by OrganService Route Details LastModified Time Tobacco Smoking Status Current Every Day Smoker LUCIANN SALOIO, PA [address], [place], [address], [place] [facility] 08/11/2019 19:06:46 Do You Have An Advance Directive? No Information not available 08/11/2019 What Is Your Code Status? Full Code Information not available 08/11/2019 Drugs Abused 0 Information not available 08/11/2019 Do You Or Have You Ever Used E-cigarettes Or Vape? Former User Of Electronic Cigarettes Information not available 08/11/2019 How Many Days In The Past Year Have You Had A Heavy Drinking Consumption (4+ Female, 5+ Male)? 0 Information not available 08/11/2019 Marital Status Single Informatio n not available 08/11/2019 What Was The Date Of Your Most Recent Tobacco Screening? 08/11/2019 Information not available 08/11/2019 Do You Or Have You Ever Used Smokeless Tobacco? Never Used Smokeless Tobacco Information not available 08/11/2019 How Much Tobacco Do You Smoke? 0.5 PPD Information not available 08/11/2019 How Many Years Have You Smoked Tobacco? 14 Information not available 08/11/2019 Sex: Unknown Functional Status None recorded. Mental Status None recorded. Family History Relationship Description Onset Age of this Age Resolved Age Notes LastModified by Organization Details LastModified Time Maternal Grandmother Malignant tumor of breast [email or web address] Not available 2018 19:04:58 Medical History Condition Response Diabetes N Coronary Artery Disease N Cancer N Stroke N Depression Y COPD Y Asthma N High Cholesterol N Pulmonary Embolism N Hypertension N Kidney Disease N Gynecological HistoryNo gynecological history recorded. Obstetrics History GPAL:G 0 P 0 0 0 0 Past Encounters Encounter ID Performer Location Encounter Start Date Encounter Closed Date Diagnosis/Indication Diagnosis SNOMED-CT Code Diagnosis ICD10 Code Diagnosis Note [id number] [facility] [address] [place] [address] 08/11/2019 18:51:44 08/11/2019 20:54:03 Viral respiratory infection 449486756 J06.9 [id number] OCTAVIO ROOT NP [facility] [address] [place] [address] 08/15/2019 20:50:34 08/15/2019 22:02:14 Community acquired pneumonia 546937255 J18.9 Health Concerns Section Related Observation LastModified by Organization Detai ls LastModified Time None Recorded Concern Status LastModified by Organization Details LastModified Time None Recorded Advance Directives Directive N: Payers Encounter Date Sequence Insurance Name Policy Number Policy Gutiérrez Covered Member ID Gutiérrez Member ID Guarantor Name 08/11/2019 1 [place] [employer] Laura M Marylou [id number] Laura Mraylou 08/11/2019 2 [place] Laura Marylou [id number] Laura Marylou 08/15/2019 1 [place] Laura M Marylou [id number] Laura Marylou 08/15/2019 2 [place] Laura Marylou [id number] Laura Marylou Notes Date Note Type Note Provider Name and Address Organization Details Recorded Time 08/11/2019 text/html 59-year-old femmeseret brooke with COPD, presents for evaluation cold symptoms. Reports 4 days of cough, runny nose, fever. Reports fever of 102.7 degrees Fahrenheit last night for which she used DayQuil and states last Tylenol use was approximately 2 hours prior to exam. Denies chest pain, shortness breath, ear pain, sore throat, sinus congestion[place], [address], [place] [facility] 08/11/2019 20:54:01 08/15/2019 text/html Pt was seen 4 da ys ago for the same c/o cough. At that time sx seemed to be from a viral cause at that time. Pt was given order for outpt Xray but was unable to get out of the house d/t sx. Pt reports that she feels a little bit better, but states she still is getting fevers late at night, she has chills on and off as well. Reports she started coughing up yellow phlegm at this time. The cough was previously dry when pt was seen 4 days ago. Still reports body aches, states she still feels weak, her nose is still running. OCTAVIO ROOT, TOBIAS [address], [place], [address], [place] [facility] 08/15/2019 22:02:12 OBGyn Episode No OBEpisode recorded.
--- OUTSIDE RECORDS SUMMARY | 2025-01-27 12:55 | XMS_ITS | Clinical Summary ---
Author Organization [facility] [address] [place] [address] [place] [phone] Phone Care Team Providers Care Slitter Scorer Name Role Phone Hosea Douglas Primary Care Provider [phone] Allergies Active Allergy Reactions Criticality Noted Date Comments Pravastatin 06/04/2014 Other Reaction(s): Other (See Comments) Skin rash Medications Cerovite Senior tablet Take 1 tablet by mouth 1 (one) time each day. 4 Active docusate sodium (COLACE) 100 mg capsule TAKE 1 CAPSULE BY MOUTH two (2) times a day 4 Active UNABLE TO FIND Take 1 tablet by mouth 1 (one) time each day. Calcium Carb-Cholecalcif elvis (Calcium Plus Vitamin D) 500-5 MG-MCG Tab 4 Active omeprazole (PriLOSEC) [address] capsule Take 1 capsule (20 mg total) by mouth 1 (one) time each day. 4 Active tiZANidine (ZANAFLEX) 4 mg tablet TAKE 1 TO 2 TABLETS BY MOUTH EVERY NIGHT AT BEDTIME 4 Active melatonin 3 mg tablet Take 1 tablet by mouth every evening 4 Active fluticasone furoate (Arnuity Ellipta) 100 mcg/actuation blister with device inhaler INHALE 1 PUFF BY MOUTH INTO THE lungs ONCE DAILY 4 Active clonazePAM (KlonoPIN) 0.5 mg tablet TAKE 1 OR 2 TABLETS BY MOUTH EVERY MORNING 4 Active nitrofurantoin, macrocrystal-mon ohydrate, (MACROBID) 100 mg capsule Take 1 Capsule by mouth daily as needed (with sexual activity). 4 Active albuterol HFA (PROAIR HFA ; PROVENTIL HFA ; VENTOLIN HFA) 90 mcg/actuation inhaler Inhale 2 Puffs into the lungs every 4 hours as needed for Cough or Wheezing. 4 Active albuterol 2.5 mg /3 mL (0.083 %) nebulizer solution Take 1 Vial by nebulization every 4 hours as needed for Wheezing, Shortness of Breath or Cough. 4 Active senna (SENOKOT) 8.6 mg tablet Take 1 Tablet by mouth three times a week. 3 Active diclofenac (VOLTAREN) 1 % topical gel Apply 4 g topically 4 times daily as needed for Other (arthritis pain). 3 Active traZODone (DESYREL) 100 mg tablet 2-3 tablets, Psychiatry 3 Active zolpidem (AMBIEN) 10 mg tablet Take 1 Tablet by mouth at bedtime as needed for Insomnia. Psychiatry 3 Active lamoTRIgine (LaMICtal) 150 mg tablet Take 150 mg by mouth daily. 7 Active Oysco 500/D 500 mg-5 mcg (200 unit) per tablet TAKE 1 TABLET BY MOUTH ONCE DAILY 90 tablet 1 5 Active acyclovir (ZOVIRAX) 400 mg tablet Take 1 tablet (400 mg total) by mouth 2 (two) times a day. 180 tablet 3 5 Active rosuvastatin (CRESTOR) 10 mg tablet TAKE 1 TABLET BY MOUTH ONCE DAILY 90 tablet 5 Active FeroSuL 325 mg (65 mg iron) tablet TAKE 1 TABLET BY MOUTH ONCE DAILY 90 tablet 1 5 Active oxyCODONE (ROXICODONE) 10 mg immediate release tablet take 1 tablet by mouth two (2) times a day as needed 5 Active buPROPion XL (WELLBUTRIN XL) 300 mg 24 hr tablet Take 1 tablet (300 mg total) by mouth 1 (one) time each day in the morning. Active lidocaine (LIDODERM) 5 % patchIndications :Atrial flutter, unspecified type (CMS/HCC V24, CMS/HCC V28),Uncomplicat ed asthma, unspecified asthma severity, unspecified whether persistent,Essen tial hypertension,Chr onic obstructive pulmonary disease with acute exacerbation (CMS/HCC V24, CMS/HCC V28) Apply 1 patch topically 1 (one) time each day. Apply to painful area 12 hours per day, remove for 12 hours. 30 each 5 Active multivitamin tablet Take 1 tablet by mouth 1 (one) time each day. 30 each 5 026 Active fluticasone propionate (FLONASE) 50 mcg/actuation nasal spray Administer 2 sprays into each nostril 1 (one) time each day. Shake gently. Before first use, prime pump. After use, clean tip and replace cap. 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 Polyp removed today (see procedure note) and sent to pathology. Will be informed of results when available. Postmenopausal bleeding 07/05/2022 Overview (08/19/2024): Last Assessment & Plan: I discussed the common causes of postmenopausal bleeding including trauma, atrophy, and endometrial polyps, as well as less common but more concerning causes including endometrial hyperplasia and endometrial carcinoma. Recommend pelvic ultrasound, which was ordered today. Discussed recommendation for endometrial sampling, as well, particulary if the endometrial stripe measures >4mm on ultrasound. I reviewed with the patient that it is reasonable to continue with expectant management if the endometrial stripe is <4mm, however if she experiences another episode of PMB endometrial sampling would be indicated at that time. All questions answered. Asthma 02/13/2022 Paroxysmal atrial fibrillation ([facility] V24, [facility] V28) 02/13/2022 Primary osteoarthritis of right hip 08/14/2021 Essential hypertension 12/22/2020 Overview (08/19/2024): Last Assessment & Plan: Patient's blood pressure is reasonably well controlled. She is not on any antihypertensive medications. Continue to follow Syncope 12/22/2020 Pulmonary nodule 04/04/2017 Overview (08/19/2024): Bilateral- repeat ct chest in 6 months(low dose CT detected), 10/2017- stable rt middle lobe nodules- rpt in 12 months Colon polyp 05/07/2016 Overview (08/19/2024): Tubulovillous adenoma, rpt colonoscopy in 3 years Atrial flutter ([facility] V24, [facility] V28) 2013 Overview (08/19/2024): Atrial flutter ablation March 2017 Medtronic ILR implanted for amaurosis fugax Anticoagulated with apixaban Last Assessment & Plan: The patient has not had any recurrent atrial fibrillation on ILR interrogations. She remains on anticoagulation with apixaban. We will arrange for an evaluation with Dr. Matos from EP as she did not have a visit with him after our last visit. This is to determine the ongoing necessity of anticoagulation. Borderline abnormal TFTs 02/24/2013 Hyperlipidemia 02/24/2013 Overview (08/19/2024): Last Assessment & Plan: Continue Dietary modification Major depression 02/24/2013 Overview (08/19/2024): Follows with Ansley Lobo PVD (peripheral vascular disease) ([facility] V24) 02/24/2013 COPD (chronic obstructive pu lmonary disease) ([facility] V24, [facility] V28) 10/28/2012 Insomnia 10/28/2012 Abdominal pain 07/24/2012 Knee pain 01/30/2010 Patella, chondromalacia 01/30/2010 Low back pain 01/13/2010 Radiculitis, lumbosacral 01/13/2010 Lumbar spondylosis 01/07/2010 Migraine 12/12/2007 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): Had open heart surgery Encounters Date Type Department Care Team Description 01/26/2025 Telephone Lung Screening Program - [address] [phone] Helen Leach [place] Appointment (1st Notification) 12/15/2024 12:45 PM EDT Office Visit Adult Medicine [address] [phone] Hosea Douglas PA Essential hypertension (Primary Dx); Atrial flutter, unspecified type ([facility]/HCC V24, [facility] V28); Uncomplicated asthma, unspecified asthma severity, unspecified whether persistent; Chronic obstructive pulmonary disease with acute exacerbation (CMS/HCC V24, CMS/HCC V28); Other abnormal glucose; Need for vaccination against Streptococcus pneumoniae; Other hyperlipidemia; Paroxysmal atrial fibrillation ([facility] V24, CMS/HCC V28); PVD (peripheral vascular disease) ([facility] V24) 12/15/2024 Telephone Adult Medicine [address] [phone] Hosea Douglas PA PT-1 from Last 3 Months Immunizations Name Administration Dates Next Due H1N1 Inj Preservative Free 09/08/2009 Influenza Quadravalent, MDCK , 0.5ml, preservative free (Flucelvax) 6mo and older 09/14/2021,07/21/2019 Influenza Quadravalent, MDCK , 0.5ml, with preservative (Flucelvax) 6mo and older 08/29/2017 Influenza trivalent, 0.5mL, preservative free (Fluarix; FluLaval; Fluzone) ages 6mo and older (Afluria) 3 years and older 12/26/2016,09/07/2015,10/13/2014,07/10,07/24/2012,09/08/2009 Influenza, Unspecified 06/30/2023,07/02/2022 Moderna SARS-CoV-2 COVID-19, mRNA, LNP-S, preservative free 04/06/2021,03/23/2021 PPD Test 08/29/2009,02/14/2005 Pfizer SARS-CoV-2 COVID-19, mRNA, LNP-S, preservative free 02/21/2022 Pneumococcal conjugate 20 va lent (Prevnar 20, PCV 20) 2mo and older 12/15/2024 Pneumococcal polysaccharide 23 valent (Pneumovax 23) 2yo and older 03/23/2014 Td Tetanus diptheria (Tdvax) 7yo and older 11/12/2022 Tdap Tetanus diptheria acell ular pertussis (Boostrix; Adacel) 7yo and older 10/08/2011 Surgical History Surgery Date Site/Laterality Comments OTHER SURGICAL HISTORY PROCEDURE: HISTORY OTHER; COMMENT: sternotomy for ablation of wpw tract TONSILLECTOMY PROCEDURE: HISTORICAL TONSILLECTOMY OTHER SURGICAL HISTORY PROCEDURE: DE LIG/TRNSXJ FLP TUBE ABDL/VAG APPR UNI/BI OTHER SURGICAL HISTORY 08/2014 PROCEDURE: DE UNLISTED PROCEDURE SPINE; COMMENT: L4- L5 lumbar fusion COLONOSCOPY 04/17/2016 PROCEDURE: HISTORICAL COLONOSCOPY; COMMENT: 10 mm sigmoid colon polyp: Tubulovillous adenoma. OTHER SURGICAL HISTORY 03/2018 PROCEDURE: DE RMVL TOT DISC ARTHRP ANT 1 INTERSPACE CERVICAL; COMMENT: cer disckectomy C5- C7 OTHER SURGICAL HISTORY 01/08/2022 PROCEDURE: DE ANESTHESIA OPEN TOTAL HIP ARTHROPLASTY; COMMENT: dr. angel, done in [place] OTHER SURGICAL HISTORY 05/22/2022 Right PROCEDURE: DE ANESTHESIA OPEN TOTAL HIP ARTHROPLASTY; COMMENT: [facility] BACK SURGERY 08/19/2023 PROCEDURE: HISTORICAL BACK SURGERY; COMMENT: L3-L4 decompression - dr. KWONG HIP ARTHROPLASTY 06/10/2024 Left PROCEDURE: HISTORICAL HIP REPLACEMENT; COMMENT: dr. 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 DX:Anomalous atrioventricular excitation Tobacco use disorder 04/07/2006 DX:Tobacco use disorder Migraine 12/12/2007 DX:Migraine Abdominal pain 07/24/2012 DX:Abdominal aleja n Cholelithiasis 08/14/2012 DX:Cholelithiasi s COPD (chronic obstructive pu lmonary disease) ([facility] V24, [facility] V28) 10/28/2012 DX:COPD (chronic o bstructive pulmonary disease) (HCC) Insomnia 10/28/2012 DX:Insomnia PVD (peripheral vascular dis ease) ([facility] V24) 02/24/2013 DX:PVD (peripheral vascular disease) ([facility]) Major depression 02/24/2013 DX:Major depres jon Borderline abnormal TFTs 02/24/2013 DX:Bord jaime abnormal TFTs Need for hepatitis C screening test 02/24/2013 DX:Need for hepatitis C screening test Historical Medical DX 01/07/2010 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 Needs monitored anesthesia care. Colon polyp 05/07/2016 DX:Colon polyp S/P ablation of atrial flutter 04/23/2017 D X:S/P ablation of atrial flutter Status post placement of imp lantable loop recorder 12/15/2018 DX:Status post placement of implantable loop recorder Asthma 02/13/2022 DX:Asthma Hyperlipidemia 02/24/2013 DX:Hyperlipidemi a Paroxysmal atrial fibrillati on ([facility] V24, [facility] V28) 02/13/2022 DX:Paroxysmal atrial fibril lation (HCC) Asthma 02/13/2022 Essential hypertension 12/22/2020 Family History Medical History Relation Name Comments Colon cancer Aunt mother's side Hypertension Father Stroke, s/p car diac surgery, blood coagulation disorder Hypertension Mother Blood coagulati on disorder Prostate cancer Paternal Grandfather Breast cancer Paternal Grandmother p 60-70s Arthritis Sister Hx of knee repl acement Autoimmune disease Neg Hx Colon cancer Neg Hx Coronary artery disease Neg Hx Diabetes Neg Hx Heart attack Neg Hx Heart failure Neg Hx Hyperlipidemia Neg Hx Mental illness Neg Hx Sleep apnea Neg Hx Thyroid disease Neg Hx Relation Name Status Comments Aunt Brother 1 Alive balloon angiopl asty Brother 2 Alive Brother 3 Alive Father Mother Alive Paternal Grandfather Paternal Grandmother p 60-70s Sister Alive Social History Tobacco Use Types Packs/Day Years Used Date Smoking Tobacco: Every Day Cigarettes 0.5 51.7 Started: 1972 Smokeless Tobacco: Never Tobacco Cessation:Ready to Q uit: Not Asked; Counseling Given: Not Answered Alcohol Use Standard Drinks/Week Comments No 0 (1 standard drink = 0.6 oz pur e alcohol) Housing Instability Answer Date Recorde d Are you worried that in the next 2 months you may not have stable housing? No 12/02/2024 Food Access & Nutrition Answer Date Rec orded Do you have access to a vari ety of food including fruits and vegetables? No 12/02/2024 Health Literacy Answer Date Recorded How often do you need to hav e someone help you when you read instructions, pamphlets, or other written material from your doctor or pharmacy? Never 12/02/2024 Caregiver: How often do you need to have someone help you when you read instructions, pamphlets, or other written material from your doctor or pharmacy? Not on file 12/02/2024 Financial Risk Answer Date Recorded How hard is it for you to pa y for the very basics like food, housing, medical care, and air conditioning / heating? Not very hard 12/02/2024 Transportation Answer Date Recorded Has the lack of transportati on kept you from meetings, work, or from getting things needed for daily living? No Has the lack of transportati on kept you from medical appointments or from getting medications? No 12/02/2024 Food Risk Answer Date Recorded Within the past 12 months we worried whether our food would run out before we got money to buy more. Never true 12/02/2024 Within the past 12 months th e food we bought just didn't last and we didn't have money to get more. Never true 12/02/2024 Dependent Care Answer Date Recorded Do you need help finding or paying for care for your loved ones. For example, child monitor or elderly care for an older adult? No 12/02/2024 Education Answer Date Recorded Do you think completing more education or training, like finishing a GED, going to college, or learning a trade, would be helpful for you? No 12/02/2024 Employment and Income Answer Date Recor ded During the last four weeks, have you been actively looking for work? No 12/02/2024 Living Situation Answer Date Recorded What is your living situation? 0 12/02/2024 Comments No Sex and Gender Information Value Date Recorded Sex Assigned at Not on file Legal Sex Female 11:02 AM EST Gender Identity Not on file Sexual Orientation Not on file Obstetrics History Last Filed Vital Signs Vital Sign Reading Time Taken Comments Blood Pressure 130/70 12/15/2024 1:06 PM EDT Pulse 63 12/15/2024 12:34 PM EDT Temperature 36.8 ??C (98.2 ??F) 12/15/2024 12:34 PM E DT Respiratory Rate 16 12/15/2024 12:34 PM EDT Oxygen Saturation - - Inhaled Oxygen Concentration - - Weight 83.5 kg (184 lb) 12/15/2024 12:34 PM EDT Height 160 cm (5' 3 ) 10/09/2024 10:03 AM EST Body Mass Index 32.59 10/09/2024 10:03 AM EST Plan of Treatment Upcoming Encounters Date Type Department Care Team (Late st Contact Info) Description 02/15/2025 10:00 AM EDT Consult Adult Medicine [facility] [address] [place] [address] Hosea Douglas PA [address] [place], [place] 02/18/2025 1:45 PM EDT Appointment [facility] CT Scan [address] [place] [phone] 03/03/2025 1:00 PM EDT Office Visit Orthopedic Surgery - [place] [address] [phone] Kamar Smith DPM [address] [phone] 06/18/2025 2:30 PM EDT Office Visit Adult Medicine [facility] [address] [place], [place] [phone] Hosea Douglas PA [address] [place] [address] Health Maintenance Due Date Last Done Comments Zoster Vaccines (1 of 2) 2011 RSV Immunization Adult Patients (1 - Risk 60-74 years 1-dose series) 2021 HIV Screening 09/08/2022 Medicare Annual Wellness Visit 09/08/2022 COVID-19 Vaccine ( season) 2024 02/21/2022, 04/21/2021, 04/06/2021, Additional history exists Depression Screening 11/25/2024 11/25/2023 Lung Cancer Screening (Low Dose CT) 02/04/2025 02/05/2024, 02/04/2024, 04/26/2022, Additional history exists Influenza Vaccine (Season Ended) 2025 06/30/2023, 07/02/2022, 09/14/2021, Additional history exists Breast Cancer Screening 08/05/2025 08/05/20 23, 02/04/2021, 08/01/2019 Social Influencers of Health Screening 12/02/2025 12/02/2024 Hypertension/CHF/CAD Annual BMP Blood Test 12/15/2025 12/15/2024, 05/25/2024, 05/25/2024 Colorectal Cancer Screening: Colonoscopy 01/28/2026 02/03/2021 Cervical Cancer Screening: HPV 07/05/2027 07/05/2022 Cholesterol Screening (Lipid Panel) 12/15/2029 12/15/2024, 05/25/2024, 05/25/2024 DTaP,Tdap,and Td Vaccines (3 - Td or Tdap) 11/12/2032 11/12/2022, 10/08/2011 Hepatitis C Screening Completed 06/05/2013 Pneumococcal Vaccine: 50+ Years Completed 12/15/2024, 08/17/2014, 03/23/2014 Pneumococcal Vaccine: Pediatrics (0 to 5 Years) and At-Risk Patients (6 to 64 Years) Completed 12/15/2024, 08/17/2014, 03/23/2014 HIB Vaccines Aged Out No longer eligi ble based on patient's age to complete this topic HPV Vaccines Aged Out No longer eligi ble based on patient's age to complete this topic Hepatitis A Vaccines Aged Out No long er eligible based on patient's age to complete this topic Hepatitis B Vaccines Aged Out No long er eligible based on patient's age to complete this topic IPV Vaccines Aged Out No longer eligi ble based on patient's age to complete this topic MMR Vaccines Aged Out No longer eligi ble based on patient's age to complete this topic Meningococcal ACWY Vaccine Aged Out N o longer eligible based on patient's age to complete this topic Meningococcal B Vaccine Aged Out No l onger eligible based on patient's age to complete this topic RSV Immunization Patients Under 20 months Aged Out No longer eligible based on patient's age to complete this topic Varicella Vaccines Aged Out No longer eligible based on patient's age to complete this topic Procedures Procedure Name Priority Date/Time Associated Diagnosis Comments CBC WITH AUTO DIFFERENTIAL Routine 12/15/2024 1:59 PM EDT Preop examination LIPID PANEL WITH REFLEX TO DIRECT LDL Routine 12/15/2024 1:59 PM EDT Atrial flutter, unspecified type (CMS/HCC V24, CMS/HCC V28) Uncomplicated asthma, unspecified asthma severity, unspecified whether persistent Essential hypertension Chronic obstructive pulmonary disease with acute exacerbation (CMS/HCC V24, CMS/HCC V28) COMPREHENSIVE METABOLIC PANEL Routine 12/15/2024 1:59 PM EDT Atrial flutter, unspecified type (CMS/HCC V24, CMS/HCC V28) Uncomplicated asthma, unspecified asthma severity, unspecified whether persistent Essential hypertension Chronic obstructive pulmonary disease with acute exacerbation (CMS/HCC V24, CMS/HCC V28) IRON AND TIBC Routine 12/15/2024 1:59 PM EDT Atrial flutter, unspecified type (CMS/HCC V24, CMS/HCC V28) Uncomplicated asthma, unspecified asthma severity, unspecified whether persistent Essential hypertension Chronic obstructive pulmonary disease with acute exacerbation (CMS/HCC V24, CMS/HCC V28) HEMOGLOBIN A1C Routine 12/15/2024 1:59 PM EDT Atrial flutter, unspecified type (CMS/HCC V24, [facility] V28) Uncomplicated asthma, unspecified asthma severity, unspecified whether persistent Essential hypertension Chronic obstructive pulmonary disease with acute exacerbation ([facility] V24, [facility] V28) Other abnormal glucose CBC AND DIFFERENTIAL Routine 12/15/2024 1:59 PM EDT Preop examination THYROID STIMULATING HORMONE WITH REFLEX TO FREE T4 AND FREE T3 Routine 12/15/2024 1:59 PM EDT Atrial flutter, unspecified type (CMS/HCC V24, [facility] V28) Uncomplicated asthma, unspecified asthma severity, unspecified whether persistent Essential hypertension Chronic obstructive pulmonary disease with acute exacerbation ([facility] V24, [facility] V28) CT LUNG SCREENING LOW DOSE Routine 02/05/2024 10:18 AM EDT Encounter for screening for malignant neoplasm of respiratory organs DEPRESSION SCREENING Routine 11/25/2023 DIAGNOSTIC MAMMOGRAPHY INCLUDING CAD BILATERAL Routine 08/05/2023 2:18 PM EST Mastodynia HPV Routine 07/05/2022 COLONOSCOPY Routine 02/03/2021 HEPATITIS C SCREENING Routine 06/05/2013 from Last 3 Months or Most Recently Relevant to Health Maintenance Results * Thyroid stimulating hormone with reflex to free t4 and free t3 (12/15/2024 1:59 PM EDT) TSH 0.85 0.40 - 4.00 mcIU/mL LAB CHEMISTRY METHOD 12/15/2024 5:15 PM EDT [facility] Blood Venous blood specimen / Unknown Venipuncture / Unknown 12/15/2024 1:59 PM EDT 12/15/2024 1:59 PM EDT Hosea CERVANTES LAB BLOOD ORDERABLES Tanisha l Result [facility] [address] [place] [address], [place] [phone] * Lipid panel with reflex to direct LDL (12/15/2024 1:59 PM EDT) Cholesterol 177 0 - 200 mg/dL LAB CHEMISTRY METHOD 12/15/2024 5:06 PM EDT [facility] Triglycerides 130 0 - 150 mg/dL LAB CHEMISTRY METHOD 12/15/2024 5:06 PM EDT [facility] HDL 56 >=40 mg/dL LAB CHEMISTRY METHOD 12/15/2024 5:06 PM EDT [facility] LDL Calculated 95 0 - 100 mg/dL LAB CHEMISTRY METHOD 12/15/2024 5:06 PM EDT [facility] VLDL Cholesterol Luigi 26 mg/dL LAB CHEMISTRY METHOD 12/15/2024 5:06 PM EDT [facility] Non HDL Chol. (LDL+VLDL) 121 <145 mg/dL LAB CHEMISTRY METHOD 12/15/2024 5:06 PM EDT [facility] Chol/HDL Ratio 3.2 0.0 - 4.4 LAB CHEMISTRY METHOD 12/15/2024 5:06 PM EDT [facility] Blood Venous blood specimen / Unknown Venipuncture / Unknown 12/15/2024 1:59 PM EDT 12/15/2024 1:59 PM EDT Hosea CERVANTES LAB BLOOD ORDERABLES Tanisha l Result [facility] [address] [place] [address], [place] [phone] * (ABNORMAL) CBC auto differential (12/15/2024 1:59 PM EDT) WBC 7.2 4.8 - 10.8 K/mcL LAB HEMETOLOGY METHOD 12/15/2024 5:02 PM [facility] RBC 5.00(H) 3.80 - 4.80 M/mcL LAB HEMETOLOGY METHOD 12/15/2024 5:02 PM [facility] Hemoglobin 14.8 11.5 - 16.0 g/dL LAB HEMETOLOGY METHOD 12/15/2024 5:02 PM [facility] Hematocrit 46.0 35.0 - 47.0 % LAB HEMETOLOGY METHOD 12/15/2024 5:02 PM [facility] MCV 92.0 79.0 - 98.0 FL LAB HEMETOLOGY METHOD 12/15/2024 5:02 PM [facility] MCH 29.6 27.0 - 32.0 pcg LAB HEMETOLOGY METHOD 12/15/2024 5:02 PM [facility] MCHC 32.2 32.0 - 37.0 g/dL LAB HEMETOLOGY METHOD 12/15/2024 5:02 PM [facility] RDW 14.1 11.0 - 15.0 % LAB HEMETOLOGY METHOD 12/15/2024 5:02 PM [facility] Platelets 258 130 - 400 K/mcL LAB HEMETOLOGY METHOD 12/15/2024 5:02 PM [facility] MPV 10.8 7.0 - 11.0 FL LAB HEMETOLOGY METHOD 12/15/2024 5:02 PM [facility] NRBC 0.0 <1.0 % LAB HEMETOLOGY METHOD 12/15/2024 5:02 PM [facility] NRBC Absolute 0.00 <0.10 K/mcL LAB HEMETOLOGY METHOD 12/15/2024 5:02 PM [facility] Neutrophils Relative 53.3 % LAB HEMETOLOGY METHOD 12/15/2024 5:02 PM [facility] Lymphocytes Relative 36.7 % LAB HEMETOLOGY METHOD 12/15/2024 5:02 PM [facility] Monocytes Relative 7.7 % LAB HEMETOLOGY METHOD 12/15/2024 5:02 PM [facility] Eosinophils Relative 1.4 % LAB HEMETOLOGY METHOD 12/15/2024 5:02 PM [facility] Basophils Relative 0.8 % LAB HEMETOLOGY METHOD 12/15/2024 5:02 PM [facility] Immature Granulocytes Relative 0.1 % LAB HEMETOLOGY METHOD 12/15/2024 5:02 PM [facility] Neutrophils Absolute 3.82 1.50 - 7.00 K/mcL LAB HEMETOLOGY METHOD 12/15/2024 5:02 PM [facility] Lymphocytes Absolute 2.63 1.00 - 5.00 K/mcL LAB HEMETOLOGY METHOD 12/15/2024 5:02 PM [facility] Monocytes Absolute 0.55 0.20 - 1.00 K/mcL LAB HEMETOLOGY METHOD 12/15/2024 5:02 PM [facility] Eosinophils Absolute 0.10 0.00 - 0.50 K/mcL LAB HEMETOLOGY METHOD 12/15/2024 5:02 PM [facility] Basophils Absolute 0.06 0.00 - 0.20 K/mcL LAB HEMETOLOGY METHOD 12/15/2024 5:02 PM [facility] Immature Granulocytes Absolute 0.01 0.00 - 0.03 K/mcL LAB HEMETOLOGY METHOD 12/15/2024 5:02 PM [facility] Blood Venous blood specimen / Unknown Venipuncture / Unknown 12/15/2024 1:59 PM EDT 12/15/2024 1:59 PM EDT Hosea CERVANTES LAB BLOOD ORDERABLES Tanisha l Result Performing Organization Address [facility]/ZIP Co de Phone Number [facility] [address] [place] [address], [place] [phone] * Iron and TIBC (12/15/2024 1:59 PM EDT) Iron 67 40 - 150 mcg/dL LAB CHEMISTRY METHOD 12/15/2024 5:06 PM EDT [facility] TIBC 258 250 - 450 mcg/dL LAB CHEMISTRY METHOD 12/15/2024 5:06 PM EDT [facility] Iron Saturation 26 15 - 50 % LAB CHEMISTRY METHOD 12/15/2024 5:06 PM EDT [facility] Blood Venous blood specimen / Unknown Venipuncture / Unknown 12/15/2024 1:59 PM EDT 12/15/2024 1:59 PM EDT Hosea CERVANTES LAB BLOOD ORDERABLES Tanisha l Result Performing Organization Address City/[facility]/ZIP Co de Phone Number [facility] [address] [place] [address], [place] [phone] * Hemoglobin A1c (12/15/2024 1:59 PM EDT) Pathologist [facility] Hemoglobin A1C 5.3 <6.5 % LAB CHEMISTRY METHOD 12/15/2024 9:00 PM EDT [facility] Mean Bld Glu Estim. 105 mg/dL LAB CHEMISTRY METHOD 12/15/2024 9:00 PM EDT [facility] Blood Venous blood specimen / Unknown Venipuncture / Unknown 12/15/2024 1:59 PM EDT 12/15/2024 1:59 PM EDT Hosea CERVANTES LAB BLOOD ORDERABLES Tanisha l Result [facility] [address] [place] [address], * (ABNORMAL) Comprehensive metabolic panel (12/15/2024 1:59 PM EDT) Sodium 136 133 - 145 mmol/L LAB CHEMISTR[facility] Potassium 4.3 3.5 - 5.5 mmol/L LAB CHEMISTRY METHOD 12/15/2024 5:07 PM [facility] Chloride 104 96 - 110 mmol/L LAB CHEMISTRY METHOD 12/15/2024 5:07 PM [facility] CO2 30 21 - 32 mmol/L LAB CHEMISTRY METHOD 12/15/2024 5:07 PM [facility] Anion Gap 2(L) 3 - 11 LAB CHEMISTRY METHOD 12/15/2024 5:07 PM [facility] Glucose 81 70 - 100 mg/dL LAB CHEMISTRY METHOD 12/15/2024 5:07 PM [facility] BUN 12 5 - 25 mg/dL LAB CHEMISTRY METHOD 12/15/2024 5:07 PM [facility] Creatinine 1.04 0.50 - 1.10 mg/dL LAB CHEMISTRY METHOD 12/15/2024 5:[facility] eGFR 61 >=60 mL/min/1. 73m2 LAB CHEMISTRY METHOD 12/15/2024 5:07 PM [facility] Comment:Calculation based on the??Chronic Kidney Disease Epidemiology Collaboration (CKD-EPI) equation refit??without adjustment for race. BUN/Creatinine Ratio 11.5 LAB CHEMISTRY METHOD 12/15/2024 5:07 PM [facility] Calcium 9.3 8.5 - 10.5 mg/dL LAB CHEMISTRY METHOD 12/15/2024 5:07 PM EDT [facility] AST (SGOT) 11 10 - 42 unit/L LAB CHEMISTRY METHOD 12/15/2024 5:07 PM EDT [facility] ALT (SGPT) 15 10 - 60 unit/L LAB CHEMISTRY METHOD 12/15/2024 5:07 PM EDT [facility] Alkaline Phosphatase 130(H) 42 - 121 unit/L LAB CHEMISTRY METHOD 12/15/2024 5:07 PM EDT [facility] Total Protein 7.0 6.0 - 8.0 g/dL LAB CHEMISTRY METHOD 12/15/2024 5:07 PM EDT [facility] Albumin 3.8 3.2 - 5.0 g/dL LAB CHEMISTRY METHOD 12/15/2024 5:07 PM EDT [facility] Total Bilirubin 0.4 0.0 - 1.4 mg/dL LAB CHEMISTRY METHOD 12/15/2024 5:07 PM EDT [facility] Blood Venous blood specimen / Unknown Venipuncture / Unknown 12/15/2024 1:59 PM EDT 12/15/2024 1:59 PM EDT Hosea CERVANTES LAB BLOOD ORDERABLES Tanisha l Result [facility] [address] [place] [address], * CT LUNG SCREENING LOW DOSE (02/05/2024 10:18 AM EDT) Anatomical Region Laterality Modality Computed Tomogra phy 02/04/2024 2:34 PM EDT Narrative 02/05/2024 10:18 AM EDT [facility] Diagnostic Imaging Department [address] [place] [address] Patient: ??LAURA HICKMAN ?/Age/Sex: 1960 - 63 - F Unit#: ??[id number] ? Location/Status: ??SPDICATLS/REG CLI ? Mnemonic/Ordering Site: ??CTLUNGLD/SPCT Ordering Physician: ??NAHED MOELLER MD CT Lung Screening Low Dose - 02/04/24 - 1440 Report Status:Signed PROCEDURE: Chest CT INDICATION: Lung cancer screening, current smoker, 50 pack year smoking history TECHNIQUE: Chest CT without contrast. Multi planar reformats were created and interpreted. The examination was performed utilizing dose reduction techniques. Total DLP 177 COMPARISON: ??04/26/2022 FINDINGS: LUNGS/PLEURA: Central airways are patent. ??Linear atelectasis in the right middle lobe. ??Subpleural nodule in the left lower lobe measures 5 mm, unchanged. Smaller scattered nodules throughout the lungs are stable compared to prior. No new or suspicious pulmonary nodules. ??No pleural effusion or pneumothorax. MEDIASTINUM: Thyroid gland is normal. ??No mediastinal or hilar lymphadenopathy. Cardiac chambers are normal in size. ??No pericardial effusion. 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 ??Esophagus is normal. Thoracic aorta is normal in size. CHEST WALL: No axillary lymphadenopathy or superficial hematoma. ??Loop recorder in place anteriorly in the subcutaneous tissues. UPPER ABDOMEN:Cholecystectomy. BONES: Median sternotomy. ??Degenerative changes seen throughout the bones. Cervical fusion hardware noted. IMPRESSION: No new or suspicious pulmonary nodules. ??Lung RADS 2-benign. ??Recommend continued screening with low-dose chest CT in 12 months. Dictating Physician: ??SHARIF DEL RIO MD Electronically Signed by: ??SHARIF DEL RIO MD Dic Date/Time: ??02/05/24 0957 Sign date/Time: ??02/05/24 1018 Procedure Note Sharif Del Rio MD - 05/18/2024 [facility] Diagnostic Imaging Department [address] [place] [id number] Patient: LAURA HICKMAN Morris Goodman/Age/Sex: 1960 - 63 - F Unit#: [id number] Location/Status: [facility] CLI Mnemonic/Ordering Site: [facility] Ordering Physician: NAHED MOELLER MD CT Lung Screening Low Dose - 02/04/24 - 1440 Report Status:Signed PROCEDURE: Chest CT INDICATION: Lung cancer screening, current smoker, 50 pack year smokinghistory TECHNIQUE: Chest CT without contrast. Multi planar reformats were createdand interpreted. The examination was performed utilizing dose reductiontechniques. Total DLP 177 COMPARISON: 04/26/2022 FINDINGS: LUNGS/PLEURA: Central airways are patent. Linear atelectasis in theright middle lobe. Subpleural nodule in the left lower lobe measures 5 mm,unchanged. Smaller scattered nodules throughout the lungs are stable compared toprior. No new or suspicious pulmonary nodules. No pleural effusion orpneumothorax. MEDIASTINUM: Thyroid gland is normal. No mediastinal or hilarlymphadenopathy. Cardiac chambers are normal in size. 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 Esophagus isnormal. Thoracic aorta is normal in size. CHEST WALL: No axillary lymphadenopathy or superficial hematoma. Looprecorder in place anteriorly in the subcutaneous tissues. UPPER ABDOMEN:Cholecystectomy. BONES: Median sternotomy. Degenerative changes seen throughout thebones. Cervical fusion hardware noted. IMPRESSION: No new or suspicious pulmonary nodules. Lung RADS 2-benign. Recommend continued screening with low-dose chest CT in 12 months. Dictating Physician: SHARIF DEL RIO MD Electronically Signed by: SHARIF DEL RIO MD Dic Date/Time: 02/05/24 0957 Sign date/Time: 02/05/24 1018 Nahed Moeller MD IMG CT PROCEDURES Final Result * Depression Screening (11/25/2023) Depression Screening abstracted Historical Provider HEALTH MAINTENANCE Final Result * DIAGNOSTIC MAMMOGRAPHY INCLUDING CAD BILATERAL (08/05/2023 2:18 PM EST) Anatomical Region Laterality Modality Mammography 07/18/2023 7:49 PM EDT Narrative 08/05/2023 2:21 PM EST This is a summary report. The complete report is available in the patient's medical record. If you cannot access the medical record, please contact the sending organization for a detailed fax or copy. BILATERAL 3D DIGITAL DIAGNOSTIC MAMMOGRAM History: Work-up for left lower outer breast pain. ??Family history of breast cancer in grandmother Comparison: Multiple priors dating back to 04/04/2015 Technique: Bilateral full-field digital 3D mammography was performed using standard CC and MLO projections CAD was used to evaluate this mammogram. Findings: Density: ??There are scattered areas of fibroglandular density-B RIGHT: No suspicious masses, groups of microcalcification or areas of architectural distortion identified. Stable typically benign parenchymal asymmetries LEFT: No suspicious masses, groups of microcalcifications or areas of architectural distortion identified. Stable typically benign parenchymal asymmetries. ??Loop device within the upper inner posterior depth breast. LEFT BREAST TARGETED ULTRASOUND EVALUATION HISTORY: Work-up for left lower outer breast pain TECHNIQUE: Ultrasonographic examination is performed using a linear array transducer. ??Targeted left breast ultrasound was performed from 3:00 to 6:00 in area of clinical pain. FINDINGS: From 3:00 to 6:00, no sonographic evidence of malignancy or other focal abnormalities were identified at the left breast in area of clinical pain. Impression: No sonographic or mammographic evidence of malignancy BI-RADS Category 2 benign findings Recommendation: Routine annual screening mammography is recommended Procedure Note Quyen Espino MD - 11/05/2023 This is a summary report. The complete report is available in thepatient's medical record. If you cannot access the medical record, pleasecontact the sending organization for a detailed fax or copy. BILATERAL 3D DIGITAL DIAGNOSTIC MAMMOGRAM History: Work-up for left lower outer breast pain. Family history ofbreast cancer in grandmother Comparison: Multiple priors dating back to 04/04/2015 Technique: Bilateral full-field digital 3D mammography was performed usingstandard CC and MLO projections CAD was used to evaluate this mammogram. Findings: Density: There are scattered areas of fibroglandular density-B RIGHT: No suspicious masses, groups of microcalcification or areas ofarchitectural distortion identified. Stable typically benign parenchymalasymmetries LEFT: No suspicious masses, groups of microcalcifications or areas ofarchitectural distortion identified. Stable typically benign parenchymalasymmetries. Loop device within the upper inner posterior depth breast. LEFT BREAST TARGETED ULTRASOUND EVALUATION HISTORY: Work-up for left lower outer breast pain TECHNIQUE: Ultrasonographic examination is performed using a linear arraytransducer. Targeted left breast ultrasound was performed from 3:00 to6:00 in area of clinical pain. FINDINGS: From 3:00 to 6:00, no sonographic evidence of malignancy or other focalabnormalities were identified at the left breast in area of clinical pain. Impression: No sonographic or mammographic evidence of malignancy BI-RADS Category 2 benign findings Recommendation: Routine annual screening mammography is recommended Hosea MURDOCK BI PROCEDURES Final R esult * Cervical Cancer Screening: HPV (07/05/2022) [facility]ologist [facility] Cervical Cancer Screening: HPV abstracted, negative Historical Provider HEALTH MAINTENANCE Final Result * Colonoscopy (02/03/2021) [facility] Colonoscopy abstracted, no interpretation Anatomical Region Laterality Modality Other Historical Provider HEALTH MAINTENANCE Final Result * Hepatitis C Screening (06/05/2013) [facility]ologist [facility] Hepatitis C Screening abstracted Historical Provider HEALTH MAINTENANCE Final Result from Last 3 Months or Most Recently Relevant to Health Maintenance Insurance MEDICARE MEDICAID - [place] Care Teams Slitter Scorer Relationship Specialty Start Date End Date Hosea Douglas PA [address] [place] [address] PCP - General Internal Medicine 02/01/21
--- OUTSIDE RECORDS SUMMARY | 2025-01-27 12:55 | XMS_ITS | Clinical Summary ---
Author Organization [facility] Address [address] [place] [address] Care Team Providers Care Geriatric Psychiatrist Name Role Phone Hosea Douglas PA-C Primary Care Provider Allergies Active Allergy Reactions Criticality Noted Date Comments Pravastatin Other (See Comments) 12/19/2021 Medications Medication Sig Dispensed Refills Start Date End Date Status apixaban (ELIQUIS) 5 MG TABS tablet Take 5 mg by mouth. 0 03/27/2018 Active omeprazole (PriLOSEC) 20 MG capsule Take 20 mg by mouth daily. 0 12/14/2021 Active gabapentin (NEURONTIN) 300 MG capsule Take 600 mg by mouth. 0 08/12/2012 Active clonazePAM (KlonoPIN) 1 MG tablet Take 1 mg by mouth every night at bedtime. 0 12/16/2021 Active zolpidem (AMBIEN) 10 MG tablet TAKE ONE TABLET BY MOUTH DAILY AT BEDTIME NEEDED 0 12/16/2021 Active buPROPion (WELLBUTRIN XL) 300 MG 24 hr tablet Take 300 mg by mouth daily. 0 12/14/2021 Active OxyCONTIN 60 MG T12A Take 1 tablet by mouth every 8 (eight) hours. 0 12/14/2021 Active oxyCODONE (ROXICODONE) 15 MG immediate release tablet Take 15 mg by mouth. 0 08/16/2014 Active traZODone (DESYREL) 100 MG tablet Take by mouth. 0 05/24/2016 Active lamoTRIgine (LaMICtal) 200 MG tablet Take 200 mg by mouth daily. 0 12/14/2021 Active Social History Tobacco Use Types Packs/Day Years Used Date Smoking Tobacco: Never Assessed Sex and Gender Information Value Date Recorded Sex Assigned at Not on file Gender Identity Not on file Sexual Orientation Not on file Job Start Date Occupation Industry Not on file Not on file Not on file Last Filed Vital Signs Vital Sign Reading Time Taken Comments Blood Pressure - - Pulse - - Temperature - - Respiratory Rate - - Oxygen Saturation - - Inhaled Oxygen Concentration - - Weight 81.6 kg (180 lb) 12/19/2021 1:47 PM EDT Height 160 cm (5' 3 ) 12/19/2021 1:47 PM EDT Body Mass Index 31.89 12/19/2021 1:47 PM EDT Plan of Treatment Health Maintenance Due Date Last Done Comments Hepatitis C Screening 1960 COVID-19 Vaccine (#1) 1960 Depression Screening 1973 BMI Counseling 1979 Preventative Health Evaluation 1979 DTap / Tdap / Td (1 - Tdap) 1980 Cervical Cancer Screening (P ap Smear) 1982 Colon Cancer Screening (Colonoscopy) 2006 Breast Cancer Screening (Mammogram) 2011 Shingrix-Zoster Vaccine (1 of 2) 2011 Influenza Vaccine (#1) 2024 RSV Adult > 60+ Yrs or Pregn ant (1 - 1-dose 75+ series) 2036 Pneumococcal Vaccine Aged Out 08/17/2014 No long er eligible based on patient's age to complete this topic Hepatitis B Vaccines Aged Out No long er eligible based on patient's age to complete this topic RSV Ped < 20 months Aged Out No longe r eligible based on patient's age to complete this topic Care Teams Geriatric Psychiatrist Relationship Specialty Start Date End Date Hosea Douglas, JOSSEC PCP - General Medical Services 12/11/21
--- OUTSIDE RECORDS SUMMARY | 2025-01-27 12:55 | XMS_ITS | Encounter Summary ---
Author Organization [facility] Address [address] [place] [address] Care Team Providers Care Fur Pointer Name Role Phone Hosea Douglas Primary Care Provider [phone] Reason for Visit * Reason Onset Date Comments Appointment 01/26/2025 1st Notification Encounter Details Date Type Department Care Team ([facility] Contact Info) Description 01/26/2025 Telephone Lung Screening Program - [address] [place] [address] Helen Leach MA Appointment (1st Notification) Social History Tobacco Use Types Packs/Day Years Used Date Smoking Tobacco: Every Day Cigarettes 0.5 51.7 Started: 1972 Smokeless Tobacco: Never Alcohol Use Standard Drinks/Week Comments No 0 [...] care for your loved ones. For example, manager child or elderly care for an older adult? [...] on file Sexual Orientation Not on file documented as of this encounter Progress Notes * Helen Leach MA - 01/26/2025 1:33 PM EDT Laura Hickman was contacted by the Lung Cancer Screening Program today to confirm the appointmentof their Lung Cancer Screening. The patient is currently scheduled to have their screening on January at 745 AM at [facility]. Patient stated that 745 AM is to early in the Morning. New date January at 130 PM. Asked that letter /Reminder is sent. For all screenings scheduled during the week, the patient will check in at Patient Registration on the first floor of the main hospital. For screenings that take place on the weekend or after 5pm, check-in directly in Radiology. The patient was given the Lung Cancer Screening Program phone number, , to contact if they have any additional questions, concerns or need to reschedule. Patients are encouraged to call our office and reschedule if they are exhibiting any cold-like symptoms, have recently been treated for Pneumonia or Influenza (the flu) or have had another CT of their Chest since their last screening. documented in this encounter Plan of Treatment Upcoming Encounters Date Type Department Care Team (Late st Contact Info) Description 02/15/2025 10:00 AM EDT Consult Adult Medicine [address] [phone] Hosea Douglas PA [address] [place] [address] 02/18/2025 1:45 PM EDT Appointment [facility] CT Scan [address] [place] [address] 03/03/2025 1:00 PM EDT Office Visit Orthopedic Surgery - [place] [address] [phone] Kamar Smith, DPMorris [address] [address] 06/18/2025 2:30 PM EDT Office Visit Adult Medicine [address] [phone] Hosea Douglas PA [address] [place] [address] documented as of this encounter Visit Diagnoses Not on filedocumented in this encounter Care Teams Fur Pointer Relationship Specialty Start Date End Date Hosea Douglas PA [address] [place] [address] PCP - General Internal Medicine 02/01/21 documented as of this encounter
[2025-02-15 13:14] VITALS: BP 129/73; PULSE 74; RESP 20; O2SAT 96; BMI 33.6
--- NOTE | 2025-02-15 13:33 | HO.ANESPROP2 ---
Documented by User: Zara Medeiros NP 03/12/25 08:18 HPI - Anesthesia Eval Consult details Narrative: 64yo F for Left Knee Replacement Total, 03/15/25 No recent illness. Seasonal allergies with occassional cough No CP. WARNER with stairs is baseline for years Cardiac optimized per workload messages. Follows [facility] cardiology for afib, hx WPW s/p ablations. Cardiac optimized . Mildly abnormal stress test. Intermediate risk for perioperative cardiovascular morbidity mortality. No change in therapy. 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 Does not follow pulmonary, PCP manages GERD: ppi controls PMFSH Active Problems Active Problems: All Active Problems Preop cardiovascular exam (Acute) Iliotibial band syndrome, left leg (Acute) Status post bilateral total hip replacement (Acute) Arthritis of right knee (Acute) Arthritis of left knee (Acute) Right knee pain (Acute) Left knee pain (Acute) History of hip surgery (Acute) History of hip surgery (Acute) Paroxysmal atrial flutter (Acute) Status post placement of implantable loop recorder (Acute) Past Medical History Medical History Depression Asthma Migraines PVD (peripheral vascular disease) Elevated cholesterol COPD (chronic obstructive pulmonary disease) HTN (hypertension) Arthritis GERD (gastroesophageal reflux disease) Paroxysmal atrial flutter Status post placement of implantable loop recorder WPW (Xjjkl-Mdwmeogjd-Krwlj syndrome) Family History Family History Father HTN (hypertension) Mother HTN (hypertension) Family history of problems with anesthesia: No Surgical History Surgical History History of hip surgery Hx of cholecystectomy History of cardiac radiofrequency ablation H/O colonoscopy History of hip surgery History of hip surgery History of back surgery Hx of neck surgery History of Problems with Anesthesia: No Social History Social History Housing Other:: mobile home Are you a primary adult care provider to a significant other at home: No 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 If so, by whom?: No Spiritual Healthcare Practices: no [facility] Practices: no Cultural Healthcare Practices: no Are you DNR?: No Advance Directives: No (son is primary contact) Advance Directives Information Provided: Yes (as above noted) Advance Directives on File: No Patient : No FDLMP: n/a Poor oral hygiene: No (full dentures) Current occupational status: disabled Current occupation: Right hand dominate Meds Allergies Allergy/AdvReac Type Severity Reaction Status Date / Time pravastatin Allergy Mild rash Verified 03/15/25 06:28 Home Medications ?Medication ?Instructions ?Recorded ?Confirmed ?Last Taken ?Type acyclovir 400 mg tablet 400 mg PO 2XW pain 09/06/21 03/11/25 Unknown History apixaban 5 mg tablet (Eliquis) 5 mg PO BID 09/06/21 03/11/25 03/07/25 History bupropion HCl 300 mg 24 hr tablet, 300 mg PO QAM 09/06/21 03/11/25 Unknown History extended release docusate sodium 100 mg capsule 100 mg PO BID 09/06/21 03/11/25 Unknown History omeprazole 20 mg tablet,delayed 20 mg PO QAM 09/06/21 03/11/25 03/15/25 History release sennosides 8.6 mg capsule (senna) 8.6 mg PO 2XW 09/06/21 03/11/25 Unknown History trazodone 100 mg tablet 100 mg PO BEDTIME Insomnia 09/06/21 03/11/25 Unknown History zolpidem 10 mg tablet 10 mg PO BEDTIME Insomnia 09/06/21 03/11/25 Unknown History albuterol sulfate 90 mcg/actuation 90 mcg inhalation Q4H PRN 01/17/23 03/11/25 Unknown History aerosol inhaler (Ventolin HFA) Shortness Of Breath Or Wheezing celecoxib 200 mg capsule 200 mg PO QPM 06/04/24 03/11/25 03/10/25 History melatonin 3 mg tablet 3 mg PO BEDTIME 06/04/24 03/11/25 Unknown History rosuvastatin 10 mg tablet 10 mg PO BEDTIME 06/04/24 03/11/25 Unknown History tizanidine 4 mg tablet 4 mg PO BID 06/04/24 03/11/25 Unknown History clonazepam 0.5 mg tablet 0.5 mg PO QAM 09/14/24 03/11/25 03/15/25 History lamotrigine 150 mg tablet 300 mg PO BEDTIME 09/21/24 03/11/25 Unknown History albuterol sulfate 2.5 mg/3 mL 2.5 mg inhalation Q4H PRN 02/15/25 03/11/25 Unknown History (0.083 %) solution for nebulization Shortness Of Breath Or Wheezing fluticasone furoate 100 1 inh inhalation QAM 02/15/25 03/11/25 Unknown History mcg/actuation blister powder for inhalation (Arnuity Ellipta) buprenorphine 20 mcg/hour weekly 1 patch topical QWEEK 02/17/25 03/11/25 Unknown History transdermal patch Exam Height,Weight and Vital Signs: Height 5 ft 3 in Weight 86.1 kg Last Vital Signs Pulse 74 02/15/25 13:14 Resp 20 02/15/25 13:14 BP 129/73 02/15/25 13:14 Pulse Ox 96 02/15/25 13:14 O2 Del Method Room Air 02/15/25 13:14 Narrative Narrative: EKG 07/2024 Details: EKG shows normal sinus rhythm with normal EKG NM cardiolite stress test 07/2024 Impression: 1. Myocardial perfusion imaging study shows mixed perfusion defect in the mid to distal inferolateral wall. Possible ischemia/infarct pattern. Cannot exclude artifactual etiology. 2. Gated LVEF is 58% during stress and 57% during rest. 3. Transient ischemic dilatation not present. Airway TM Dist: >3cm Neck ROM: Limited (s/p cspine surgery ~ 5 years ago) Denture: Upper Loose/Missing/Broken Teeth: Yes (does not wear lower dentures) Heart: RRR Lungs: CTAB Assessment and Plan Final Anesthetic Review Family History of Problems with Anesthesia: No History of Problems with Anesthesia: No Documented by User: Jose Guadalupe Henderson MD 03/15/25 10:02 [facility] Past Medical History Medical History Depression Asthma Migraines PVD (peripheral vascular disease) Elevated cholesterol COPD (chronic obstructive pulmonary disease) HTN (hypertension) Arthritis GERD (gastroesophageal reflux disease) Paroxysmal atrial flutter Status post placement of implantable loop recorder WPW (Ejysi-Rhgvjizfp-Ymzqw syndrome) Cognitive capacity: oriented Functional capacity: uses cane/walker Patient : No Family History Family History Father HTN (hypertension) Mother HTN (hypertension) Surgical History Surgical History History of hip surgery Hx of cholecystectomy History of cardiac radiofrequency ablation H/O colonoscopy History of hip surgery History of hip surgery History of back surgery Hx of neck surgery Social History Social History Housing Other:: mobile home Are you a primary adult care provider to a significant other at home: No 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 If so, by whom?: No Spiritual Healthcare Practices: no [facility] Practices: no Cultural Healthcare Practices: no Are you DNR?: No Advance Directives: No (son is primary contact) Advance Directives Information Provided: Yes (as above noted) Advance Directives on File: No Patient : No FDLMP: n/a Poor oral hygiene: No (full dentures) Current occupational status: disabled Current occupation: Right hand dominate Meds Allergies Allergy/AdvReac Type Severity Reaction Status Date / Time pravastatin Allergy Mild rash Verified 03/15/25 06:28 Home Medications ?Medication ?Instructions ?Recorded ?Confirmed ?Last Taken ?Type acyclovir 400 mg tablet 400 mg PO 2XW pain 09/06/21 03/11/25 Unknown History apixaban 5 mg tablet (Eliquis) 5 mg PO BID 09/06/21 03/11/25 03/07/25 History bupropion HCl 300 mg 24 hr tablet, 300 mg PO QAM 09/06/21 03/11/25 Unknown History extended release docusate sodium 100 mg capsule 100 mg PO BID 09/06/21 03/11/25 Unknown History omeprazole 20 mg tablet,delayed 20 mg PO QAM 09/06/21 03/11/25 03/15/25 History release sennosides 8.6 mg capsule (senna) 8.6 mg PO 2XW 09/06/21 03/11/25 Unknown History trazodone 100 mg tablet 100 mg PO BEDTIME Insomnia 09/06/21 03/11/25 Unknown History zolpidem 10 mg tablet 10 mg PO BEDTIME Insomnia 09/06/21 03/11/25 Unknown History albuterol sulfate 90 mcg/actuation 90 mcg inhalation Q4H PRN 01/17/23 03/11/25 Unknown History aerosol inhaler (Ventolin HFA) Shortness Of Breath Or Wheezing celecoxib 200 mg capsule 200 mg PO QPM 06/04/24 03/11/25 03/10/25 History melatonin 3 mg tablet 3 mg PO BEDTIME 06/04/24 03/11/25 Unknown History rosuvastatin 10 mg tablet 10 mg PO BEDTIME 06/04/24 03/11/25 Unknown History tizanidine 4 mg tablet 4 mg PO BID 06/04/24 03/11/25 Unknown History clonazepam 0.5 mg tablet 0.5 mg PO QAM 09/14/24 03/11/25 03/15/25 History lamotrigine 150 mg tablet 300 mg PO BEDTIME 09/21/24 03/11/25 Unknown History albuterol sulfate 2.5 mg/3 mL 2.5 mg inhalation Q4H PRN 02/15/25 03/11/25 Unknown History (0.083 %) solution for nebulization Shortness Of Breath Or Wheezing fluticasone furoate 100 1 inh inhalation QAM 02/15/25 03/11/25 Unknown History mcg/actuation blister powder for inhalation (Arnuity Ellipta) buprenorphine 20 mcg/hour weekly 1 patch topical QWEEK 02/17/25 03/11/25 Unknown History transdermal patch Exam Airway Mallampati Class: II Other: oriented Assessment and Plan Final Anesthetic Review ASA Class: III Final Preanesthetic Review: No Changes in Pt Med Stat, Meds/Allgs Chart Reviewed, Consent Obtained/Reviewed and Anes Risks/Benef Reviewed Patient Risk: Low Procedure Risk: Low Anesthetic Plan Anesthetic Plan: MAC:, Spinal, Regional Block, Agree w/ Assess. and Plan and TIVA Disposition: Standard PACU
[2025-02-15 14:45] LABS: Hematocrit 48.2 % (37.0-47.0); Mean Corpuscular HGB Conc 33.2 g/dl (31.0-35.0); Mean Corpuscular Hemoglobin 30.1 pg (27.0-33.0); Mean Corpuscular Volume 90.6 fL (80.0-98.0); Mean Platelet Volume 10.1 fL (9.4-12.3); Platelet Count 284 X10*3/uL (160-400); Red Blood Count 5.32 X10*6/uL (4.20-5.50); Red Cell Distribution Width 14.1 % (11.0-16.0); White Blood Count 9.4 X10*3/uL (4.8-10.8)
[2025-02-15 15:06] LABS: Anion Gap 11 (12-20); Blood Urea Nitrogen 7 mg/dL (9-16); Calcium 8.9 mg/dL (8.4-10.2); Carbon Dioxide 28 mmol/L (22-29); Chloride 106 mmol/L (96-108); Creatinine Clr Calc Pharmacy 72.1; Estimated Glomerular Filt Rate > 60; Glucose Random 79 mg/dL (60-115); Potassium 3.7 mmol/L (3.3-5.1); Sodium 141 mmol/L (135-145)
[2025-02-15 16:26] LABS: MRSA Nasal PCR NEGATIVE (Negative); SA Nasal PCR NEGATIVE (Negative)
[2025-03-15] VITALS (10 sets, daily range): BP systolic 109–136; BP diastolic 60–78; PULSE 64–88; RESP 16–18; TEMP 36.1–36.7; O2SAT 91–97; BMI 31.6
[2025-03-15] MEDS: Lactated Ringers 1,000 ML 100 ML IVCONT ×3 (07:09→23:27)
[2025-03-15] MEDS: vancomycin HCL 1,500 MG in 0.9 % Sodium Chloride 500 ML 333.33 MG IV ×2 (07:09→18:09)
--- NOTE | 2025-03-15 07:35 | PC.NURSE ---
Vancomycin dose verified with elizabeth in pharmacy after weighing patient this a.m.
[2025-03-15] MEDS: ceFAZolin Sodium/Dextrose,Iso 2 GM/50 ML PIGGYBACK IV ×3 (08:01→22:14)
--- NOTE | 2025-03-15 10:03 | HO.ANESPROP2 ---
[facility] Active Problems Active Problems: All Active Problems Pre-op evaluation (Acute) Preop cardiovascular exam (Acute) Iliotibial band syndrome, left leg (Acute) Status post bilateral total hip replacement (Acute) Arthritis of right knee (Acute) Arthritis of left knee (Acute) Right knee pain (Acute) Left knee pain (Acute) History of hip surgery (Acute) History of hip surgery (Acute) Paroxysmal atrial flutter (Acute) Status post placement of implantable loop recorder (Acute) Past Medical History Medical History Depression Asthma Migraines PVD (peripheral vascular disease) Elevated cholesterol COPD (chronic obstructive pulmonary disease) HTN (hypertension) Arthritis GERD (gastroesophageal reflux disease) Paroxysmal atrial flutter Status post placement of implantable loop recorder WPW (Loggv-Jkmabungd-Zxwdz syndrome) Functional capacity: uses cane/walker Family History Family History Father HTN (hypertension) Mother HTN (hypertension) Family history of problems with anesthesia: No Surgical History Surgical History History of hip surgery Hx of cholecystectomy History of cardiac radiofrequency ablation H/O colonoscopy History of hip surgery History of hip surgery History of back surgery Hx of neck surgery History of Problems with Anesthesia: No Social History Social History Housing Other:: mobile home Are you a primary medicare sales executive to a significant other at home: No Do you presently have visiting nurse or other home services: Yes ([employer]) Patient Tobacco Use Status: Current everyday Tobacco user Tobacco use type: Cigarette Cigarettes Per Day: 4 Years Smoked: 47 Use of substances other than those prescribed or required for medical reasons: Yes Substance Use Type Other:: smokes marijuana daily-advised to hole 3-5 days pre-op Substance Use Frequency: Daily Have you been hit, kicked, punched, or otherwise hurt by someone within the past year? If so, by whom?: No Spiritual Healthcare Practices: no [facility] Practices: no Cultural Healthcare Practices: no Are you DNR?: No Advance Directives: No (son is primary contact) Advance Directives Information Provided: Yes (as above noted) Advance Directives on File: No Patient : No FDLMP: n/a Poor oral hygiene: No (full dentures) Current occupational status: disabled Current occupation: Right hand dominate Meds Allergies Allergy/AdvReac Type Severity Reaction Status Date / Time pravastatin Allergy Mild rash Verified 03/15/25 06:28 Active Medications: Current Medications Albuterol Sulfate (Albuterol Sulfate (0.083%) 2.5 Mg/3 Ml Vial.Neb) 2.5 mg INHALE ONCE PRN PRN Reason: Shortness of Breath/Wheezing Lactated Ringer's (Lr) 1,000 mls @ 100 mls/hr IVCONT .Q10H JORGE Last Admin: 03/15/25 07:09 Dose: 100 mls/hr Home Medications ?Medication ?Instructions ?Recorded ?Confirmed ?Last Taken ?Type acyclovir 400 mg tablet 400 mg PO 2XW pain 09/06/21 03/11/25 Unknown History apixaban 5 mg tablet (Eliquis) 5 mg PO BID 09/06/21 03/11/25 03/07/25 History bupropion HCl 300 mg 24 hr tablet, 300 mg PO QAM 09/06/21 03/11/25 Unknown History extended release docusate sodium 100 mg capsule 100 mg PO BID 09/06/21 03/11/25 Unknown History omeprazole 20 mg tablet,delayed 20 mg PO QAM 09/06/21 03/11/25 03/15/25 History release sennosides 8.6 mg capsule (senna) 8.6 mg PO 2XW 09/06/21 03/11/25 Unknown History trazodone 100 mg tablet 100 mg PO BEDTIME Insomnia 09/06/21 03/11/25 Unknown History zolpidem 10 mg tablet 10 mg PO BEDTIME Insomnia 09/06/21 03/11/25 Unknown History albuterol sulfate 90 mcg/actuation 90 mcg inhalation Q4H PRN 01/17/23 03/11/25 Unknown History aerosol inhaler (Ventolin HFA) Shortness Of Breath Or Wheezing celecoxib 200 mg capsule 200 mg PO QPM 06/04/24 03/11/25 03/10/25 History melatonin 3 mg tablet 3 mg PO BEDTIME 06/04/24 03/11/25 Unknown History rosuvastatin 10 mg tablet 10 mg PO BEDTIME 06/04/24 03/11/25 Unknown History tizanidine 4 mg tablet 4 mg PO BID 06/04/24 03/11/25 Unknown History clonazepam 0.5 mg tablet 0.5 mg PO QAM 09/14/24 03/11/25 03/15/25 History lamotrigine 150 mg tablet 300 mg PO BEDTIME 09/21/24 03/11/25 Unknown History albuterol sulfate 2.5 mg/3 mL 2.5 mg inhalation Q4H PRN 02/15/25 03/11/25 Unknown History (0.083 %) solution for nebulization Shortness Of Breath Or Wheezing fluticasone furoate 100 1 inh inhalation QAM 02/15/25 03/11/25 Unknown History mcg/actuation blister powder for inhalation (Arnuity Ellipta) buprenorphine 20 mcg/hour weekly 1 patch topical QWEEK 02/17/25 03/11/25 Unknown History transdermal patch Exam Height,Weight and Vital Signs: Height 5 ft 3 in Weight 81 kg Last Vital Signs Temp 98.1 F 03/15/25 07:10 Pulse 76 03/15/25 07:10 Resp 18 03/15/25 07:10 BP 120/78 03/15/25 07:10 Pulse Ox 96 03/15/25 07:10 O2 Del Method Room Air 03/15/25 07:10 Pertinent Lab Results Pertinent Lab Results: Laboratory Tests 02/15/25 02/15/25 03/15/25 13:30 14:06 06:48 WBC 9.4 RBC 5.32 Hgb 16.0 D Hct 48.2 H D MCV 90.6 MCH 30.1 MCHC 33.2 RDW 14.1 Plt Count 284 MPV 10.1 Absolute Nucleated RBC 0.000 Nucleated RBC % (auto) 0.0 Sodium 141 Potassium 3.7 Chloride 106 Carbon Dioxide 28 Anion Gap 11 L BUN 7 L Creatinine 0.83 Estim Creat Clear Calc 72.1 Estimated GFR > 60 Random Glucose 79 Calcium 8.9 Nasal Screen MRSA (PCR) NEGATIVE Nasal S. aureus Screen NEGATIVE Nasal MRSA/S.aureus Interp SEE NOTE Blood Type A Negative Antibody Screen NEGATIVE Assessment and Plan Final Anesthetic Review Family History of Problems with Anesthesia: No History of Problems with Anesthesia: No Anesthetic Plan Anesthetic Plan: MAC: and Spinal Disposition: Standard PACU
--- NOTE | 2025-03-15 10:58 | P.BOP_ITS ---
Brief Operative Note Date of Service: 03/15/25 Pre-op diagnosis: Left knee degenerative joint disease Post-op diagnosis: same Procedure: Left total knee arthroplasty Implants: Hugh Triathlon cemented posterior stabilized total knee arthroplasty with a femoral component size 4 left, tibial component size 3, polyethylene liner size 3 with 11 mm of thickness, an asymmetric patellar component size 29 with 9 mm of thickness Surgeon: Richie Calero MD Anesthesia: regional and spinal Was an Tracing Lathe Set Up Operator used for this Procedure?: No Tracing Lathe Set Up Operator: Nadia Mcconnell Estimated blood loss (mL): 200 Pathology: other (Bony fragments from the left femur, tibia and patella) Condition: stable Disposition: PACU
--- NOTE | 2025-03-15 10:59 | P.OP_ITS ---
Operative Note Operative Note Date of Service: 03/15/25 Narrative: After the patient was identified as Laura Hickman and her left knee was initialed by myself the patient was brought to the holding area where a left leg nerve block was performed by the anesthesiologist in routine fashion. The patient was then brought to the operating room where conscious sedation and spinal anesthesia were performed by the anesthesiologist in routine fashion. Because of the patient's history of left total hip replacement infection in the past she was given both IV Ancef and IV vancomycin preoperatively for infection prophylaxis. The patient's left lower extremity was prepped and draped in steri le fashion. A formal time-out was completed. The patient's left knee was placed onto a small bump to produce 30? of knee flexion during exposure. A #10 scalpel blade was used to make a midline incision extending 1 handbreadth proximal and distal to the patella. A second #10 scalpel blade was used to dissect the subcutaneous tissues down to the extensor mechanism. The subcutaneous flaps were maintained as thick as possible. A medial parapatellar arthrotomy was then performed using a #10 scalpel blade. The arthrotomy was begun just medial to the patellar tendon. The arthrotomy was continued 1 cm medial to the patella and then 5 mm into the medial aspect of the quadriceps tendon. The infrapatellar fat pad was partially excised to help with exposure. The soft tissue retinaculum was raised one-half of the way around the medial aspect of the proximal tibia. The patella was everted and the knee was flexed to 90?. There was no injury to the patellar tendon or its insertion onto the tibial tubercle. A drill bit was introduced into the distal aspect of the femur with a starting point 1 cm anterior to the origin of the posterior cruciate ligament. The intramedullary alignment francesca was put into place. The distal alignment guide was set for a 5 degree valgus cut. The distal cutting block was put into place and was held with 4 pins. The intramedullary alignment francesca was removed. Soft tissues were retracted in the distal femoral cut was made using a sagittal saw. The distal aspect of the femur measured to be a size 4 left component. Two drill holes were placed into the distal aspect of the femur marking 3? of external rotation. The distal cutting block was impacted into place and was held with 2 pins. Soft tissues were retracted and the 4 distal femoral cuts were made using a sagittal saw. Final notching and drilling of the distal aspect of the femur were performed in routine fashion. The trial femoral component was impacted into place. The knee was taken through a full range of motion. The patella tracked well. The patella was everted and the knee was flexed to 90?. The trial component was removed and our attention was directed to the proximal tibia. The medial and lateral menisci were removed using a #10 scalpel blade. A small rim of the medial meniscus was left intact to help prevent injury to the medial collateral ligament. A drill bit was then introduced into the proximal tibia with a starting point midway from medial to lateral and one-third of the way posteriorly. The intramedullary alignment francesca was put into place. The proximal tibial cutting guide was placed over the alignment francesca in line with the 2nd toe. The guide was held in place using 3 pins. The intramedullary alignment francesca was removed. Soft tissues were retracted and the proximal tibial cut was made using a sagittal saw. The proximal tibia measured to be a size 3 component. The tibial tray was put into place with an 11 mm liner. The femoral component was impacted into place. The knee was taken through a full range of motion. There was full flexion and full extension. There was no instability with varus or valgus stress testing with the knee in flexion or extension. The patella tracked well with no medially directed force. The rotation of the tibial tray was marked using electrocautery with the knee in extension. The patella was everted and the knee was flexed to 90?. All trial components were removed. The tibial tray was placed onto the proximal tibia in line with the electrocautery dionne. The tray was held in place using 3 pins. Final broaching of the proximal tibia was performed in routine fashion. The trial liner and trial femoral component were put into place. The knee was brought into extension and our attention was directed to the patella. The patella measured 25 mm in thickness. The patellar resection guide was set for a 10 mm resection. Soft tissues were retracted and the patella cut was made using a sagittal saw. The remaining patella measured 15 mm in thickness. The undersurface of the patella was measured to be a size 29 asymmetric component. Three drill holes were placed into the undersurface of the patella in routine fashion. The trial component was put into place. The knee was taken through a full range of motion. The patella tracked well. The patella was everted and the knee was flexed to 90?. All trial components were removed. The knee was once again brought into extension and placed onto a small bump. The knee joint was irrigated with copious amounts of normal saline solution via pulse lavage while the cement was mixed. The patella was everted and the knee was flexed to 90?. A small amount of cement was placed along the posterior aspects of the tibial and femoral components. Cement was then pressurized into the proximal tibia. The tibial component was impacted into place. Any excess cement was removed. The polyethylene liner was then impacted into place. Cement was then pressurized into the distal aspect of the femur. A small amount of cement was placed into the intramedullary canal to help reduce bleeding. The femoral component was impacted into place. Any excess cement was removed. The knee was then brought into extension. Cement was pressurized into the undersurface of the patella. The patellar component was put into place and was held with a patella clamp. Any excess cement was removed. Once the cement had hardened the patellar clamp was removed. The knee was taken through a full range of motion. There was full flexion and extension. There was no instability with varus or valgus stress testing with the knee in flexion or extension. The patella tracked well with no medially directed force. The knee joint was irrigated with copious amounts of normal saline solution via pulse lavage. Any significant bleeding vessels were coagulated. The patient's left knee was placed onto a small bump. The arthrotomy was closed with #2 Ethibond [id number] interrupted suture as well as #1 Vicryl [id number] interrupted suture. The wound was once again irrigated. The subcutaneous tissues were closed with 0 Vicryl and 2-0 Vicryl interrupted sutures. The skin was closed with skin annika. Dry sterile dressing and Junior bandages were placed over the patient's left knee. The patient was awake and alert. The patient was transferred to the recovery room in stable condition.
[2025-03-15] MEDS: oxyCODONE HCl Immed Release 5 MG TABLET 10 MG PO ×2 (11:57→16:32)
[2025-03-15] MEDS: oxyCODONE HCl ER 10 MG TAB.ER.12H PO ×2 (11:57→21:40)
[2025-03-15] MEDS: Celecoxib 200 MG CAPSULE PO ×2 (11:58→21:39)
[2025-03-15] MEDS: Docusate Sodium 100 MG CAPSULE PO (11:58)
[2025-03-15] MEDS: Acetaminophen 325 MG TABLET 650 MG PO (11:58)
[2025-03-15] MEDS: methocarbamoL 500 MG TABLET PO ×3 (12:00→21:39)
--- NOTE | 2025-03-15 13:13 | HO.PM.IMCN ---
History of Present Illness Data of Consult Service Date: 03/15/25 Primary Care Provider: HELEN Cardona HPI Reason for consult: Consult for medical management 64-year-old female with a past medical history of Depression, Asthma, Migraines, PVD, HLD, COPD, HTN, Arthritis, GERD, PAFIB with Loop recorder, WPW, Chronic pain who is S/P Left knee replacement today by Dr. Calero. Patient with a history of paroxysmal flutter, status post ablation in 2017, no medication indicated for rate control, continues on Eliquis. On exam patient is awake and alert, reports she has voided, no nausea or vomiting, tolerated diet. She denies any shortness of breath, dizziness, lightheadedness, headaches or any other concerning symptoms. She reports she is a current everyday smoker. Requesting nicotine replacement therapy. Review of Systems Review of Systems: Denies any shortness of breath, chest pain, dizziness, lightheadedness, abdominal pain or discomfort, nausea vomiting or diarrhea PMFSH Medical History Depression Asthma Migraines PVD (peripheral vascular disease) Elevated cholesterol COPD (chronic obstructive pulmonary disease) HTN (hypertension) Arthritis GERD (gastroesophageal reflux disease) Paroxysmal atrial flutter Status post placement of implantable loop recorder WPW (Nhfmc-Ukizdkkjm-Jpofp syndrome) Functional capacity: uses cane/walker Family History Father HTN (hypertension) Mother HTN (hypertension) Surgical History History of hip surgery Hx of cholecystectomy History of cardiac radiofrequency ablation H/O colonoscopy History of hip surgery History of hip surgery History of back surgery Hx of neck surgery Social History Housing Other:: mobile home Are you a primary childcare center administrator to a significant other at home: No Do you presently have visiting nurse or other home services: Yes (MED DIR) Patient Tobacco Use Status: Current everyday Tobacco user Tobacco use type: Cigarette Cigarettes Per Day: 4 Years Smoked: 47 Use of substances other than those prescribed or required for medical reasons: Yes Substance Use Type Other:: smokes marijuana daily-advised to hole 3-5 days pre-op Substance Use Frequency: Daily Have you been hit, kicked, punched, or otherwise hurt by someone within the past year? If so, by whom?: No Spiritual Healthcare Practices: no Nondenominational Healthcare Practices: no Cultural Healthcare Practices: no Are you DNR?: No Advance Directives: No (son is primary contact) Advance Directives Information Provided: Yes (as above noted) Advance Directives on File: No Patient : No FDLMP: n/a Poor oral hygiene: No (full dentures) Current occupational status: disabled Current occupation: Right hand dominate Meds Allergies Allergy/AdvReac Type Severity Reaction Status Date / Time pravastatin Allergy Mild rash Verified 03/15/25 06:28 Active Medications: Current Medications Acetaminophen (Acetaminophen 325 Mg Tablet) 650 mg PO Q6H PRN PRN Reason: Pain, Mild 1-3,fever,headache Last Admin: 03/15/25 11:58 Dose: 650 mg Acyclovir (Acyclovir 200 Mg Capsule) 400 mg PO 2XW [facility] Albuterol Sulfate (Albuterol Sulfate (0.083%) 2.5 Mg/3 Ml Vial.Neb) 2.5 mg INHALE Q4H PRN PRN Reason: Shortness Of Breath Or Wheezing Albuterol Sulfate (Albuterol Sulfate 90 Mcg 8 Gm Inhaler) puff INHALE Q4H PRN PRN Reason: Shortness Of Breath Or Wheezing Apixaban (Apixaban 5 Mg Tablet) 5 mg PO BID [facility] Bupropion HCl (Bupropion Hcl Xl 300 Mg Tab.Er.24h) 300 mg PO QAM [facility] Calcium Carbonate (Calcium Carbonate 750 Mg Tab.Chew) 750 mg PO Q4H PRN PRN Reason: Heartburn Celecoxib (Celecoxib 200 Mg Capsule) 200 mg PO BID [facility] Last Admin: 03/15/25 11:58 Dose: 200 mg Clonazepam (Clonazepam 0.5 Mg Tablet) 0.5 mg PO QAM [facility] Docusate Sodium (Docusate Sodium 100 Mg Capsule) 100 mg PO BID [facility] Last Admin: 03/15/25 11:58 Dose: 100 mg Fentanyl (Fentanyl Citrate/Pf 100 Mcg/2 Ml Vial) 50 mcg IVPUSH Q5M PRN PRN Reason: Pain, Moderate to Severe (Pain Scale 4-10) Stop: 03/15/25 16:06 Gabapentin (Gabapentin 100 Mg Capsule) 100 mg PO BEDTIME [facility] Hydromorphone HCl (Hydromorphone Hcl 0.5 Mg/0.5 Ml Syringe) 0.25 mg IVPUSH Q5M PRN PRN Reason: Pain, Moderate to Severe (Pain Scale 4-10) Stop: 03/15/25 16:07 Hydromorphone HCl (Hydromorphone Hcl 0.5 Mg/0.5 Ml Syringe) 0.25 mg IVPUSH Q4H PRN; Protocol PRN Reason: Pain, Severe (Pain Scale 7-10) Lactated Ringer's (Lr) 1,000 mls @ 100 mls/hr IVCONT .Q10H [facility] Last Admin: 03/15/25 11:59 Dose: 100 mls/hr Acetaminophen (Ofirmev) 1,000 mg in 100 mls @ 400 mls/hr IV ONCE PRN PRN Reason: Pain, Mild (Pain Scale 1-3) Cefazolin Sodium/Dextrose (Ancef) 2 gm in 50 mls @ 100 mls/hr IV Q8H [facility] Stop: 03/16/25 00:01 Lactated Ringer's (Lr) 1,000 mls @ 100 mls/hr IVCONT .Q10H [facility] Last Admin: 03/15/25 11:59 Dose: Not Given Vancomycin HCl 1,500 mg/ (Sodium Chloride) 500 mls @ 333.333 mls/hr IV POSTOP@1900 [facility] Stop: 03/15/25 20:29 Lamotrigine (Lamotrigine 100 Mg Tablet) 300 mg PO BEDTIME [facility] Magnesium Hydroxide (Milk Of Magnesia 30 Ml Oral.Susp) 30 ml PO DAILY PRN PRN Reason: Constipation Melatonin (Melatonin 3 Mg Tablet) 3 mg PO BEDTIME [facility] Melatonin (Melatonin 3 Mg Tablet) 6 mg PO BEDTIME PRN PRN Reason: Insomnia Methocarbamol (Methocarbamol 500 Mg Tablet) 500 mg PO TID [facility] Last Admin: 03/15/25 12:00 Dose: 500 mg Naloxone HCl (Naloxone Hcl 0.4 Mg/Ml Vial) 0.04 mg IVPUSH Q5M PRN PRN Reason: Excessive sedation or RR < 8 Non-Formulary Medication (Buprenorphine) 1 patch TOPICAL QWEEK [facility] Non-Formulary Medication (Fluticasone Furoate [Arnuity Ellipta]) 1 inhalation INHALE QAM [facility] Non-Formulary Medication (Rosuvastatin) 10 mg PO BEDTIME [facility] Omeprazole (Omeprazole 20 Mg Capsule.Dr) 20 mg PO QAM [facility] Ondansetron HCl (Ondansetron Hcl 4 Mg/2 Ml Vial) 4 mg IVPUSH ONCE PRN PRN Reason: Nausea and Vomiting Stop: 03/15/25 16:08 Oxycodone HCl (Oxycodone Hcl Immed Release 5 Mg Tablet) 5 mg PO Q4H PRN PRN Reason: Pain, Mild (Pain Scale 1-3) Oxycodone HCl (Oxycodone Hcl Immed Release 5 Mg Tablet) 10 mg PO Q4H PRN PRN Reason: Pain, Moderate(Pain Scale 4-6) Last Admin: 03/15/25 11:57 Dose: 10 mg Oxycodone HCl (Oxycodone Hcl Er 10 Mg Tab.Er.12h) 10 mg PO BID [facility] Last Admin: 03/15/25 11:57 Dose: 10 mg Senna (Sennosides 8.6 Mg Tablet) 17.2 mg PO BEDTIME [facility] Sodium Chloride (0.9 % Sodium Chloride Flush 3 Ml Syringe) 3 ml IVFLUSH QSHIFT [facility] Last Admin: 03/15/25 11:58 Dose: Not Given Tizanidine HCl (Tizanidine Hcl 4 Mg Tablet) 4 mg PO BID [facility] Trazodone HCl (Trazodone Hcl 100 Mg Tablet) 100 mg PO BEDTIME [facility] Zolpidem Tartrate (Zolpidem Tartrate 5 Mg Tablet) 10 mg PO BEDTIME [facility] Home Medications ?Medication ?Instructions ?Recorded ?Confirmed ?Last Taken ?Type acyclovir 400 mg tablet 400 mg PO 2XW pain 09/06/21 03/11/25 Unknown History apixaban 5 mg tablet (Eliquis) 5 mg PO BID 09/06/21 03/11/25 03/07/25 History bupropion HCl 300 mg 24 hr tablet, 300 mg PO QAM 09/06/21 03/11/25 Unknown History extended release docusate sodium 100 mg capsule 100 mg PO BID 09/06/21 03/11/25 Unknown History omeprazole 20 mg tablet,delayed 20 mg PO QAM 09/06/21 03/11/25 03/15/25 History release sennosides 8.6 mg capsule (senna) 8.6 mg PO 2XW 09/06/21 03/11/25 Unknown History trazodone 100 mg tablet 100 mg PO BEDTIME Insomnia 09/06/21 03/11/25 Unknown History zolpidem 10 mg tablet 10 mg PO BEDTIME Insomnia 09/06/21 03/11/25 Unknown History albuterol sulfate 90 mcg/actuation 90 mcg inhalation Q4H PRN 01/17/23 03/11/25 Unknown History aerosol inhaler (Ventolin HFA) Shortness Of Breath Or Wheezing celecoxib 200 mg capsule 200 mg PO QPM 06/04/24 03/11/25 03/10/25 History melatonin 3 mg tablet 3 mg PO BEDTIME 06/04/24 03/11/25 Unknown History rosuvastatin 10 mg tablet 10 mg PO BEDTIME 06/04/24 03/11/25 Unknown History tizanidine 4 mg tablet 4 mg PO BID 06/04/24 03/11/25 Unknown History clonazepam 0.5 mg tablet 0.5 mg PO QAM 09/14/24 03/11/25 03/15/25 History lamotrigine 150 mg tablet 300 mg PO BEDTIME 09/21/24 03/11/25 Unknown History albuterol sulfate 2.5 mg/3 mL 2.5 mg inhalation Q4H PRN 02/15/25 03/11/25 Unknown History (0.083 %) solution for nebulization Shortness Of Breath Or Wheezing fluticasone furoate 100 1 inh inhalation QAM 02/15/25 03/11/25 Unknown History mcg/actuation blister powder for inhalation (Arnuity Ellipta) buprenorphine 20 mcg/hour weekly 1 patch topical QWEEK 02/17/25 03/11/25 Unknown History transdermal patch Physical Exam Vital Signs and Narrative: Vital Signs: Last Vital Signs Temp 97.8 F 03/15/25 11:46 Pulse 64 03/15/25 11:46 Resp 16 03/15/25 11:46 BP 134/68 03/15/25 11:46 Pulse Ox 96 03/15/25 11:46 O2 Del Method Room Air 03/15/25 11:46 BMI result Body Mass Index 31.6 CONST: Alert and oriented, in NAD. Well nourished HEENT: Normocephalic, atraumatic, MMM, Eyes clear, Neck supple RESP: Lungs clear, RRR even and regular HEART:,RRR, S1, S2. , no edema. Positive CMS to left lower extremity. Strong PP GI:Abdomen Soft NT, ND. + BS times four :Deferred SKIN: Warm dry and intact, dressing intact to left knee, no strike through drainage NEURO:CN II-XII Intact bilaterally, Sensation intact. Speech clear PSYCH: Normal affect Results Labs 02/15/25 14:06 02/15/25 14:06 Labs: Laboratory Results - last 24 hr 03/15/25 06:48 Blood Type A Negative Antibody Screen NEGATIVE Assessment and Plan (1) Paroxysmal atrial flutter: Status: Acute Plan 64-year-old female with a past medical history of AFib, WPW, chronic pain, asthma, COPD, GERD depression anxiety admitted for left total knee replacement. Patient seen for medical management. Status post left knee replacement Plan per Orthopedics History of PAFIB/WPW S/P ablation 2017 WPW s/p RFA in her 20's Implantable loop recorder in situ Resume eliquis per surgery team. Medication for rate control not indicated. Chronic pain/History of chronic narcotic pain management Patient on chronic narcotic pain management for the past 7 years, followed outpatient Recently Started weekly bupenorphine patch Continue Xanaflex, Gabapentin Narcotics pain management per Orthopedic team Asthma/COPD Does not follow pulmonary, PCP manages Encourage smoking cessation Continue Home inhalers and PRN albuterol Current everyday smoker. NRT GERD Continue Omeprazole. Depression and anxiety Resume home medications including Lamictal, clonazepam, trazodone, Ambien and wellbutrin. VTE propylaxis: Eliquis CODE status: FULL CODE
[2025-03-15] MEDS: HYDROmorphone HCl 0.5 MG/0.5 ML SYRINGE 0.25 MG IVPUSH ×2 (13:25→18:01)
--- NOTE | 2025-03-15 14:33 | PHA.MEDREC ---
Addendum entered by Benoit Cespedes RPh 03/15/25 15:02: MED REC REVIEWED BY [facility] Per patient, she takes trazodone 200 mg at bedtime. Original Note: Pharmacy Consult ? Medication Reconciliation Pharmacy has completed the medication reconciliation. Spoke with pt and she confirmed her medications. Pt confirmed she is still taking the Acyclovir 400mg tab twice a week on Mondays and Fridays for outbreaks and confirmed she last took it Monday 03/12. Pt also confirmed she was started on a Buprenorphine patches once a week and states she started it 3 weeks ago and stopped it about 1 week ago due to finding no pain relief while taking them. Patient stated she stopped taking her Eliquis about 1 week ago due to the surgery today.
[2025-03-15] MEDS: Acyclovir 200 MG CAPSULE 400 MG PO (16:30)
[2025-03-15] MEDS: buPROPion HCl XL 300 MG TAB.ER.24H PO (16:30)
[2025-03-15] MEDS: Atorvastatin Calcium 40 MG TABLET PO (16:30)
[2025-03-15] MEDS: Nicotine 7 MG PATCH.TD24 TRANSDERMA (16:31)
[2025-03-15] MEDS: traZODone HCL 100 MG TABLET 200 MG PO (21:38)
[2025-03-15] MEDS: lamoTRIgine 100 MG TABLET 300 MG PO (21:38)
[2025-03-15] MEDS: Melatonin 3 MG TABLET PO (21:38)
[2025-03-15] MEDS: Zolpidem Tartrate 5 MG TABLET 10 MG PO (21:39)
[2025-03-15] MEDS: Apixaban 5 MG TABLET PO (21:40)
[2025-03-15] MEDS: HYDROmorphone HCl 0.5 MG/0.5 ML SYRINGE IVPUSH (22:09)
[2025-03-16] VITALS: BP 125/61; PULSE 61; RESP 18; TEMP 37; O2SAT 95
[2025-03-16] MEDS: oxyCODONE HCl Immed Release 5 MG TABLET 10 MG PO ×3 (00:36→12:22)
[2025-03-16] MEDS: Acetaminophen 1,000 MG/100 ML PIGGYBACK 400 MG IV (00:42)
[2025-03-16 01:51] VITALS: BMI 31.6
[2025-03-16 03:41] VITALS: BP 128/64; PULSE 84; TEMP 37; O2SAT 97
[2025-03-16] MEDS: HYDROmorphone HCl 0.5 MG/0.5 ML SYRINGE IVPUSH ×2 (04:13→08:57)
[2025-03-16] MEDS: Omeprazole 20 MG CAPSULE.DR PO (06:36)
[2025-03-16 06:41] LABS: MANUAL DIFF FLAG NO
[2025-03-16 06:44] LABS: Basophils Percent Auto 0.4 % (0-2); Eosinophils Absolute Auto 0.2 X10*3/uL (0.0-0.4); Eosinophils Percent Auto 2.2 % (0-4); Hematocrit 34.2 % (37.0-47.0); Hemoglobin 11.3 g/dl (12.0-16.0); Imm Gran Abs Auto 0.02 X10*3/uL (0.00-0.03); Imm Gran Pct Auto 0.2 % (0.0-0.4); Lymphocytes Absolute Auto 2.7 X10*3/uL (1.2-4.9); Lymphocytes Percent Auto 28.8 % (20-40); Mean Corpuscular Hemoglobin 29.9 pg (27.0-33.0); Mean Corpuscular Volume 90.5 fL (80.0-98.0); Monocytes Absolute Auto 1.1 X10*3/uL (0.1-1.2); Monocytes Percent Auto 11.6 % (2-11); Neutrophils Absolute Auto 5.3 x10*3/uL (2.0-8.3); Neutrophils Percent Auto 56.8 % (45-73); Platelet Count 191 X10*3/uL (160-400); Red Blood Count 3.78 X10*6/uL (4.20-5.50); Red Cell Distribution Width 13.6 % (11.0-16.0); White Blood Count 9.4 X10*3/uL (4.8-10.8)
[2025-03-16 06:56] LABS: Anion Gap 8 (12-20); Blood Urea Nitrogen 6 mg/dL (9-16); Calcium 7.8 mg/dL (8.4-10.2); Carbon Dioxide 26 mmol/L (22-29); Chloride 108 mmol/L (96-108); Creatinine Clr Calc Pharmacy 74.4; Estimated Glomerular Filt Rate > 60; Glucose Fasting 103 mg/dL (60-99); Potassium 3.5 mmol/L (3.3-5.1); Sodium 138 mmol/L (135-145)
[2025-03-16 07:23] VITALS: BP 130/65; PULSE 80; RESP 17; TEMP 37; O2SAT 92
--- NOTE | 2025-03-16 07:24 | W.MHC.F2F ---
Service Date Service Date: 03/16/25 Encounter Date of encounter: 03/16/25 Reasons for Services Signs and symptoms assessed: Weakness, poor balance, poor gait mechanics Reason for physical therapy: home safety and mobility, therapeutic exercises, restore joint function, gait/transfer training, ADL training and energy conservation Reason for occupational therapy: home safety and mobility, therapeutic exercises, restore joint function, gait/transfer training, ADL training and energy conservation Overseeing Care: Richie Calero Homebound: Leaving the home is medically contraindicated at this time without the asist of a device and/or another person due th the listed conditions above and below. Reason homebound: unsteady gait / fall risk, pain with ambulation, pain with transfers, poor balance / fall risk and unable to drive Homebound supporting statement: Pt. is considered home bound due to recent surgery. Unable to drive, poor balance, poor gait mechanics. Certification: Based on the above findings, I certify that this patient is confined to the home and needs intermittent detention care, physical therapy and/or speech therapy, or continues to need occupational therapy. The patient is under my care, and I have initiated the establishment of the plan of care. The patient will be followed by a physician who will periodically review the plan of care. Time Spent With Patient Time: Total time managing care of this patient today ____ minutes.
--- NOTE | 2025-03-16 07:25 | P.DS_ITS ---
DS: Providers Provider Date of Service: 03/16/25 Date of discharge: 03/16/25 Primary care physician: HELEN Cardona Consults: 03/15/25 11:37 Consult to Hospitalist Routine Comment: Consulting Provider: [facility] Reason For Exam: Routine medical management DS: Diagnosis Discharge Diagnosis (1) Status post total left knee replacement: Status: Acute DS: Summary Hospital Course Hospital Course: The patient underwent a successful left total knee arthroplasty on 03/16/[address] Calero, was transferred to PACU and then to the floor to recover. During their stay, their vitals were stable, afebrile at 98.6 . Labs were unremarkable, H/H 11.3/34.2. POD 1 she resumed her Eliquis, POD 0 she received Physical Therapy services . Physical therapy should include gait training, ROM to tolerance and quad strength. He is WBAT. Prior to discharge, dressing clean dry and intact, new Aquacel dressing applied. The Aquacel dressing should remain intact and dry at all times. Any concerns with the dressing, please contact orthopedic office. No showering. The plan is to be discharged home with vna Time Attestation Discharge Coordination Time (in mins): 30 Quality: Safe Use of Opioids Does Pt have an Active Cancer Diagnosis on the Problem List?: No Quality: Stroke Does the patient have a stroke diagnosis?: No Physical Exam Vital Signs: Vital Signs: Last Vital Signs Temp 98.6 F 03/16/25 07:23 Pulse 80 03/16/25 07:23 Resp 17 03/16/25 07:23 BP 130/65 03/16/25 07:23 Pulse Ox 92 03/16/25 07:23 O2 Del Method Room Air 03/16/25 07:23 BMI result Body Mass Index 31.6 DS: Data Data Completed and Pending Pending studies at discharge: Pending at discharge 03/15/25 09:28 Surgical [PTH] Routine Labs on day of discharge: Laboratory Results - last 24 hr 03/15/25 03/16/25 06:48 06:21 WBC 9.4 RBC 3.78 L D Hgb 11.3 L D Hct 34.2 L D MCV 90.5 MCH 29.9 MCHC 33.0 RDW 13.6 Plt Count 191 D MPV 10.0 Immature Gran % (Auto) 0.2 Neut % (Auto) 56.8 Lymph % (Auto) 28.8 [place] % (Auto) 11.6 H Eos % (Auto) 2.2 Baso % (Auto) 0.4 Lymph # (Auto) 2.7 [place] # (Auto) 1.1 Eos # (Auto) 0.2 Baso # (Auto) 0.0 Abs Immat Gran (auto) 0.02 Absolute Neuts (auto) 5.3 Absolute Nucleated RBC 0.000 Nucleated RBC % (auto) 0.0 Sodium 138 Potassium 3.5 Chloride 108 Carbon Dioxide 26 Anion Gap 8 L BUN 6 L Creatinine 0.78 Estim Creat Clear Calc 74.4 Estimated GFR > 60 Fasting Glucose 103 H Calcium 7.8 L D Blood Type A Negative Antibody Screen NEGATIVE Discharge Plan Discharge Patient Disposition: Home Health Service Referrals: Enzo Shell PA-C [Phys[facility]] - 04/01/25 1:30 pm Discharge Medications: New celecoxib 200 mg Capsule 200 mg PO BID 30 Days Qty: 60 0RF acetaminophen 325 mg Tablet 650 mg PO Q6H PRN (Reason: Pain, Mild 1-3,Fever,Headache) 30 Days Qty: 240 0RF gabapentin 100 mg Capsule 100 mg PO BEDTIME 7 Days Qty: 7 0RF oxycodone 10 mg tablet 10 mg PO Q4H PRN (Reason: Pain, Moderate(Pain Scale 4-6)) 7 Days Qty: 42 0RF Rx Instructions: Partial Fill upon patient request. sulfamethoxazole-trimethoprim [Bactrim DS] 800-160 mg tablet 1 tab PO BID 30 Days Qty: 60 0RF Continued (SIERRA) belinda Karimi See Rx Instructions .ROUTE .MEDSUPPLY Qty: 1 0RF Rx Instructions: Nirali trevino lamotrigine 150 mg Tablet 300 mg PO BEDTIME albuterol sulfate 2.5 mg /3 mL (0.083 %) Solution For Nebulization 2.5 mg INHALATION Q4H PRN (Reason: Shortness Of Breath Or Wheezing) ferrous sulfate [FeroSul] 325 mg (65 mg iron) tablet 325 mg PO DAILY CertaVite Senior 0.4 mg-300 mcg- 250 mcg tablet 1 tab PO BEDTIME albuterol sulfate [Ventolin HFA] 90 mcg/actuation HFA aerosol inhaler 90 mcg inhalation Q4H PRN (Reason: Shortness Of Breath Or Wheezing) Eliquis 5 mg tablet 5 mg PO BID omeprazole 20 mg tablet,delayed release (DR/EC) 20 mg PO DAILY@0630 acyclovir 400 mg tablet 400 mg PO MOFR PRN (Reason: Outbreak) zolpidem 10 mg tablet 10 mg PO BEDTIME bupropion HCl 300 mg tablet extended release 24 hr 300 mg PO DAILY docusate sodium 100 mg capsule 100 mg PO BID PRN (Reason: Constipation) senna 8.6 mg capsule 8.6 mg PO BID PRN (Reason: Constipation) trazodone 100 mg tablet 200 mg PO BEDTIME melatonin 3 mg tablet 3 mg PO BEDTIME tizanidine 4 mg tablet 4 - 8 mg PO BEDTIME PRN (Reason: Pain) celecoxib 200 mg capsule 200 mg PO BEDTIME rosuvastatin 10 mg tablet 10 mg PO BEDTIME clonazepam 0.5 mg tablet 0.5 mg PO DAILY Discharge Orders: Discharge Order (Routine); Ordered 03/16/25 Ordered By: Enzo Shell Diet: Advance to usual diet Activity on Discharge: Use cane or walker Activity Restrictions/Additional Instructions: Physical Therapy for ROM 0-120, quad strength, gait training. Use walker for ambulation Limit stair climbing, No shower, No tub bath, No driving Continue Eliquis at regular dose Keep Aquacel dressing clean, dry and intact. Follow up with orthopedics in 2 weeks Print Language: Kenyan
[2025-03-16] MEDS: clonazePAM 0.5 MG TABLET PO (07:29)
[2025-03-16] MEDS: oxyCODONE HCl ER 10 MG TAB.ER.12H PO (07:29)
[2025-03-16] MEDS: buPROPion HCl XL 300 MG TAB.ER.24H PO (07:29)
[2025-03-16] MEDS: methocarbamoL 500 MG TABLET PO (07:30)
[2025-03-16] MEDS: Celecoxib 200 MG CAPSULE PO (07:30)
[2025-03-16] MEDS: Nicotine 7 MG PATCH.TD24 TRANSDERMA (07:30)
[2025-03-16] MEDS: Apixaban 5 MG TABLET PO (07:30)
[2025-03-16] MEDS: Atorvastatin Calcium 40 MG TABLET PO (07:30)
[2025-03-16] MEDS: Lactated Ringers 1,000 ML 100 ML IVCONT (08:29)
--- NOTE | 2025-03-16 08:33 | HO.POSTANES ---
Post Anesthesia Evaluation Post Anesthesia Evaluation Date of Service: 03/16/25 Vital Signs: Vital Signs Temp Pulse Resp BP Pulse Ox O2 Del Method 03/16/25 07:23 98.6 F 80 17 130/65 92 Room Air 03/16/25 03:41 98.6 F 84 128/64 97 Room Air 03/16/25 00:00 98.6 F 61 18 125/61 95 Room Air Anesthesia: Spinal Mental Status: Awake Pain Control: Satisfactory Nausea/Vomiting: None Hydration: Adequate Anesthesia-Related Issues: No Anes. Related Issues
--- NOTE | 2025-03-16 10:29 | MHC.CM.PN ---
pt lives alone has a antisqueak applier pt also has a lifeline pt has own ride home
[2025-03-16] MEDS: TiZANidine HCL 4 MG TABLET PO (12:21)
[2025-03-16 13:21] VITALS: BP 107/66; PULSE 89; RESP 17; TEMP 37.1; O2SAT 93
== END 2025-03-16 13:37 | disposition home health service (06) ==
LOC: HO.SSS 06:31 → HO.S3 10:59
PROVIDERS: Nurse Practitioner; Physician Assistant; PCP Physician Assistant Medical; Visit Provider Orthopaedic Surgery
PROC: (CPT 27447; principal; 2025-03-15 07:30)
DX: M17.12 Unilateral primary osteoarthritis, left knee (principal); G89.29 Other chronic pain; M25.562 Pain in left knee; I48.0 Paroxysmal atrial fibrillation; I48.92 Unspecified atrial flutter; I10 Essential (primary) hypertension; I45.6 Pre-excitation syndrome; E78.00 Pure hypercholesterolemia, unspecified; Z95.818 Presence of other cardiac implants and grafts; J45.909 Unspecified asthma, uncomplicated; J44.9 Chronic obstructive pulmonary disease, unspecified; F32.A Depression, unspecified; K21.9 Gastro-esophageal reflux disease without esophagitis; I73.9 Peripheral vascular disease, unspecified; G43.909 Migraine, unspecified, not intractable, without status migrainosus; Z79.01 Long term (current) use of anticoagulants; Z79.51 Long term (current) use of inhaled steroids; Z79.899 Other long term (current) drug therapy; Z99.89 Dependence on other enabling machines and devices; Z88.8 Allergy status to other drugs, medicaments and biological substances; Z96.643 Presence of artificial hip joint, bilateral; Z98.890 Other specified postprocedural states; F17.210 Nicotine dependence, cigarettes, uncomplicated
CPT/HCPCS: 27447; 36415; 80048; 85025; 85027; 86850; 86900; 86901; 87640; 87641; 88305; 88311; 97110; 97116; 97161; A6260; C1776; J0131; J0665; J0690; J1171; J2003; J2250; J2405; J2704; J3010; J3370; J3371; J7120

== ENCOUNTER → 2025-03-15 06:31 | Outpatient (BNV) | payer MEDICAID, SELFPAY | PROVIDERS: PCP Physician Assistant Medical; Visit Provider Orthopaedic Surgery | DX: M17.12 Unilateral primary osteoarthritis, left knee (principal) | CPT/HCPCS: 27447 ==

== ENCOUNTER → 2025-03-15 06:31 | Outpatient (BNV) | payer MEDICAID, SELFPAY | PROVIDERS: PCP Physician Assistant Medical; Visit Provider Nurse Practitioner Family | DX: I48.92 Unspecified atrial flutter (principal) | CPT/HCPCS: 99222 ==

== ENCOUNTER 2025-03-19 11:26 | Outpatient (AMB) | payer MEDICAID, SELFPAY ==
--- NOTE | 2025-03-19 11:36 | A.OFFVIS_ITS ---
Intake Visit Reasons: Wound Check Lt TKA 03/15/25 NE Intake Note: Laura is a 64 year old woman who presents today for a post operative visit and wound check status post left TKA DOS: 03/15/[address] Calero. States her dressing is looking nasty and would like to change it. Allergies pravastatin Allergy (Mild, Verified 03/19/25 11:37) rash HPI HPI Wound Check Lt TKA 03/15/25 NE: Details: Ms. Connell is a 64-year-old female who presents to the office today status post left total knee arthroplasty performed on 03/15/[address] Calero. Patient's bandage is saturated and would like a bandage change. [facility] Medical History Depression Asthma Migraines PVD (peripheral vascular disease) Elevated cholesterol COPD (chronic obstructive pulmonary disease) HTN (hypertension) Arthritis GERD (gastroesophageal reflux disease) Paroxysmal atrial flutter Status post placement of implantable loop recorder WPW (Aidcw-Arhgmemyw-Ktqmd syndrome) Surgical History (Updated 03/19/25 @ 11:38 by WILL Montes) Status post total left knee replacement (~03/15/25) History of hip surgery Hx of cholecystectomy History of cardiac radiofrequency ablation H/O colonoscopy History of hip surgery History of hip surgery History of back surgery Hx of neck surgery Family History Father HTN (hypertension) Mother HTN (hypertension) Social History Housing Other:: mobile home Are you a primary director of healthcare systems to a significant other at home: No Do you presently have visiting nurse or other home services: Yes (EDUCATION DIRECTOR) Patient Tobacco Use Status: Current everyday Tobacco user Tobacco use type: Cigarette Cigarettes Per Day: 4 Years Smoked: 47 service: No Current occupational status: disabled Current occupation: Right hand dominate Review of Systems Const All systems reviewed & are unremarkable except as noted in HPI and below Physical Exam Const General: cooperative, healthy appearing and no acute distress Resp Effort & Inspection: normal respiratory effort and able to speak in complete sentences Extrem Other: Left knee Aquacel dressing is saturated with serosanguineous and bloody fluid. Incision site is intact annika are intact. No surrounding erythema. No signs of infection. NVI. Assessment & Plan Assessment & Plan (1) Status post total left knee replacement: Onset Date: ~03/15/25 Code(s): Z96.652 - Presence of left artificial knee joint Category: Surgical Plan Mr. Hernadez this is a 74-year-old right-hand dominant male who presents to the office today for routine follow-up status post right radial head fracture that occurred on 02/05/2025. Patient states overall he is doing very well. It does appear that he has been perhaps overdoing it with activities. He reports no pain at this time. On the office today, the saturated Aquacel dressing was removed and the incision site was cleaned with ChloraPrep. A new Aquacel dressing was applied and the patient will follow up at her normally scheduled follow up appointment, sooner if needed. Coding Level of Care Code Global (76138) Diagnoses Status post total left knee replacement Z96.652
--- OUTSIDE RECORDS SUMMARY | 2025-03-19 11:48 | XMS_ITS | Clinical Summary ---
Author Organization [facility] [address] [place] [address] Address [address] [place] [address] Phone Care Team Providers Care [employer] Hr[employer] Developer Name Role Phone Hosea Douglas Primary Care Provider [phone] [phone] Allergies Active Allergy Reactions Criticality Noted Date [...] vascular disease) ([facility] V24) 02/24/2013 COPD (chronic obstructive pu lmonary disease) ([facility] V24, [facility] V28) 10/28/2012 Insomnia 10/28/2012 Abdominal pain 07/24/2012 Knee pain 01/30/2010 Patella, chondromalacia 01/30/2010 Low back pain 01/13/2010 Radiculitis, lumbosacral 01/13/2010 Lumbar spondylosis 01/07/2010 Migraine 12/12/2007 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): Had open heart surgery Encounters Date Type Department Care Team Description 03/08/2025 Telephone Adult Medicine [address] [phone] Hosea Douglas PA Fitting for DME 03/03/2025 1:00 PM EDT Office Visit Orthopedic Surgery [facility] [address] [facility] [address] [place] [phone] Kamar Smith DPM PVD (peripheral vascular disease) ([facility] V24) (Primary Dx); Pain in toes of both feet; Arthritis of both feet; Dermatophytosis, nail 02/18/2025 12:45 PM EDT - 02/18/2025 11:59 PM EDT Hospital Encounter [facility] CT Scan [address] [place] [address] Encounter for screening for malignant neoplasm of respiratory organs; Nicotine dependence, cigarettes, uncomplicated Discharge Disposition: Home or Self Care 02/15/2025 10:00 AM EDT Consult Adult Medicine [facility] [address] [place] [address] Hosea Douglas PA Preoperative cardiovascular examination (Primary Dx); Essential hypertension; Arthritis of left knee; Abnormal level of blood mineral 01/26/2025 Telephone Lung Screening Program - [address] [place] [address] Helen Leach [place] Appointment (1st Notification) from Last 3 Months Immunizations Name Administration [...] PROCEDURE: HISTORICAL TONSILLECTOMY OTHER SURGICAL HISTORY PROCEDURE: [place] LIG/TRNSXJ FLP TUBE ABDL/VAG APPR UNI/BI OTHER SURGICAL HISTORY 08/2014 PROCEDURE: [place] UNLISTED PROCEDURE SPINE; COMMENT: L4- L5 lumbar fusion COLONOSCOPY 04/17/2016 PROCEDURE: HISTORICAL COLONOSCOPY; COMMENT: 10 mm sigmoid colon polyp: Tubulovillous adenoma. OTHER SURGICAL HISTORY 03/2018 PROCEDURE: [place] RMVL TOT DISC ARTHRP ANT 1 INTERSPACE CERVICAL; COMMENT: cer disckectomy C5- C7 OTHER SURGICAL HISTORY 01/08/2022 PROCEDURE: [place] ANESTHESIA OPEN TOTAL HIP ARTHROPLASTY; COMMENT: dr. angel, done in [place] OTHER SURGICAL HISTORY 05/22/2022 Right PROCEDURE: [place] ANESTHESIA OPEN TOTAL HIP ARTHROPLASTY; COMMENT: [facility] ; BACK SURGERY 08/19/2023 PROCEDURE: HISTORICAL BACK SURGERY; COMMENT: L3-L4 decompression - dr. KWONG HIP ARTHROPLASTY 06/10/2024 Left PROCEDURE: HISTORICAL HIP REPLACEMENT; COMMENT: dr. 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 DX:Anomalous atrioventricular excitation Tobacco use disorder 04/07/2006 DX:Tobacco use disorder Migraine 12/12/2007 DX:Migraine Abdominal pain 07/24/2012 DX:Abdominal aleja n Cholelithiasis 08/14/2012 DX:Cholelithiasi s COPD (chronic obstructive pu lmonary disease) (CMS/HCC V24, CMS/HCC V28) 10/28/2012 DX:COPD (chronic o bstructive pulmonary disease) (HCC) Insomnia 10/28/2012 DX:Insomnia PVD (peripheral vascular dis ease) (CMS/HCC V24) 02/24/2013 DX:PVD (peripheral vascular disease) (HCC) Major depression 02/24/2013 DX:Major depres jon Borderline abnormal TFTs 02/24/2013 DX:Bord jaime abnormal TFTs Need for hepatitis C screening test 02/24/2013 DX:Need for hepatitis C screening test Historical Medical DX 01/07/2010 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 For example, director of early childhood education or elderly care for an older adult? [...] 74 02/15/2025 9:57 AM EDT Temperature 35.3 C (95.5 F) 02/15/2025 9:57 AM EDT Respiratory Rate 14 02/15/2025 9:57 AM EDT [...] PM EDT Office Visit Orthopedic Surgery - [place] 250 175 [facility] [address] [place] [phone] Kamar Smith, DPM 175 [facility] [address] [place] [address] 06/18/2025 2:30 PM EDT Office Visit Adult Medicine [facility] [address] [place] [address] Hosea [place] PA [address] [place] [address] Health Maintenance Due Date Last Done Comments [...] Preoperative cardiovascular examination Arthritis of left knee COMPREHENSIVE METABOLIC PANEL Routine 12/15/2024 1:59 PM EDT Atrial flutter, unspecified type (CMS/HCC V24, CMS/HCC V28) Uncomplicated asthma, unspecified asthma severity, unspecified whether persistent Essential hypertension Chronic obstructive pulmonary disease with acute exacerbation (CMS/HCC V24, CMS/HCC V28) LIPID PANEL WITH REFLEX TO DIRECT LDL [...] Signed Date: 02/19/2025 05:47 ET Workstation ID: [id number] Transcribed By: Self Edit Transcribed Date: 02/19/2025 05:41 ET Narrative 02/19/2025 5:47 AM EDT Indication: Greater than 20 total pack-year smoking history, asymptomatic current smoker Technique: Low-dose CT scan of the chest obtained as a lung cancer screening study. Multiplanar reformatted images were obtained. Dose reduction technique: ASIR (Adaptive statistical iterative reconstruction) and/or AEC (automated exposure control) DLP: 167.37 mGy-cm COMPARISON: January 2024. FINDINGS: Lack of intravenous contrast limits evaluation of the ricardo, vascular structures and visualized abdominal viscera. Lungs/airways: Central airways are patent. Increased subpleural reticularity. 5 mm juxtapleural nodule in the left lower lobe which is similar to prior (series 4, image 148). Other scattered pulmonary nodules are similar to prior. Base of the neck, mediastinum, heart, chest wall, vessels: The assessment of hilar lymphadenopathy is difficult without the use of IV contrast. Thyroid gland is unremarkable. No enlarged mediastinal lymph nodes. Thoracic aortic and aortic annular calcifications. Upper abdomen: [...] Signed Date: 02/19/2025 05:47 ET Workstation ID: [id number] Transcribed By: Self Edit Transcribed Date: 02/19/2025 05:41 ET Carol Leos MD IMG CT PROCEDURES Final Result * ECG 12 lead Tracing Only (02/15/2025 10:34 AM EDT) Hosea CERVANTES ECG ORDERABLES Final Res ult * Lipid panel with reflex to direct LDL (12/15/2024 1:59 PM EDT) Cholesterol 177 0 - 200 mg/dL LAB CHEMISTRY METHOD 12/15/2024 5:06 PM EDT [facility] Triglycerides 130 0 - 150 mg/dL LAB CHEMISTRY METHOD 12/15/2024 5:06 PM EDT [facility] HDL 56 >=40 mg/dL LAB CHEMISTRY METHOD 12/15/2024 5:06 PM EDT [facility] LDL Calculated 95 0 - 100 mg/dL LAB CHEMISTRY METHOD 12/15/2024 5:06 PM EDT [facility] VLDL Cholesterol Luigi 26 mg/dL LAB CHEMISTRY METHOD 12/15/2024 5:06 PM EDT [facility] Non HDL Chol. (LDL+VLDL) 121 <145 mg/dL LAB CHEMISTRY METHOD 12/15/2024 5:06 PM EDT [facility] Chol/HDL Ratio 3.2 0.0 - 4.4 LAB CHEMISTRY METHOD 12/15/2024 5:06 PM T [facility] Blood Venous blood specimen / Unknown Venipuncture / Unknown 12/15/2024 1:59 PM EDT 12/15/2024 1:59 PM EDT Hosea CERVANTES LAB BLOOD ORDERABLES Tanisha connie Result [facility] [address] [place] [address], * (ABNORMAL) Comprehensive metabolic panel (12/15/2024 1:59 PM EDT) Sodium 136 133 - 145 mmol/L LAB CHEMISTRY METHOD 12/15/2024 5:07 PM [facility] Potassium 4.3 3.5 - 5.5 mmol/L LAB CHEMISTRY METHOD 12/15/2024 5:07 PM [facility] Chloride 104 96 - 110 mmol/L [...] [facility] Comment:Calculation based on the Chronic Kidney Disease Epidemiology Collaboration (CKD-EPI) equation refit without adjustment for race. BUN/Creatinine Ratio 11.5 LAB CHEMISTRY METHOD 12/15/2024 5:07 PM [facility] Calcium 9.3 8.5 - 10.5 mg/dL LAB CHEMISTRY METHOD 12/15/2024 5:07 PM [facility] AST (SGOT) 11 10 - 42 unit/L LAB CHEMISTRY METHOD 12/15/2024 5:07 PM EDT [facility] ALT (SGPT) 15 10 - 60 unit/L LAB CHEMISTRY METHOD 12/15/2024 5:07 PM EDT [facility] Alkaline Phosphatase 130(H) 42 - 121 unit/L LAB CHEMISTRY METHOD 12/15/2024 5:07 PM EDT [facility] Total Protein 7.0 6.0 - 8.0 g/dL LAB CHEMISTRY METHOD 12/15/2024 5:07 PM EDT [facility] Albumin 3.8 3.2 - 5.0 g/dL LAB CHEMISTRY METHOD 12/15/2024 5:07 PM EDT [facility] Total Bilirubin 0.4 0.0 - 1.4 mg/dL LAB CHEMISTRY METHOD 12/15/2024 5:07 PM EDT [facility] Blood Venous blood specimen / Unknown Venipuncture / Unknown 12/15/2024 1:59 PM EDT 12/15/2024 1:59 PM EDT Hosea CERVANTES LAB BLOOD ORDERABLES Tanisha l Result [facility] [address] [place] [address], * Depression Screening (11/25/2023) Depression Screening abstracted Historical Provider MD HEALTH MAINTENANCE Final Result * DIAGNOSTIC MAMMOGRAPHY [...] left lower outer breast pain. Family history of breast cancer in grandmother Comparison: [...] distortion identified. Stable typically benign parenchymal asymmetries. Loop device within the upper inner posterior depth breast. LEFT BREAST TARGETED ULTRASOUND EVALUATION HISTORY: Work-up for left lower outer breast pain TECHNIQUE: Ultrasonographic examination is performed using a linear array transducer. Targeted left breast ultrasound was performed from [...] Routine annual screening mammography is recommended Hosea CERVANTES IMG BI PROCEDURES Final R esult * Cervical Cancer Screening: HPV (07/05/2022) [facility] Cervical Cancer Screening: HPV abstracted, negative Result [facility] Provider HEALTH MAINTENANCE Final Result * Colonoscopy (02/03/2021) [facility] Colonoscopy abstracted, no interpretation Anatomical Region Laterality Modality Other Result [facility] Provider HEALTH MAINTENANCE Final Result * Hepatitis C Screening (06/05/2013) [facility] Hepatitis C Screening abstracted Result [facility] Provider HEALTH MAINTENANCE Final Result from Last 3 Months or Most Recently Relevant to Health Maintenance Insurance [place] Care Teams [employer] H[employer] Developer Relationship Specialty Start Date End Date Hosea Douglas PA [address] [place] [address] PCP - General Internal Medicine 02/01/21
== END 2025-03-19 11:42 | disposition home or self-care (01) ==
LOC: HO.HOS 11:27
PROVIDERS: PCP Physician Assistant Medical; Visit Provider Physician Assistant
DX: Z96.652 Presence of left artificial knee joint (principal)
CPT/HCPCS: 99024

== ENCOUNTER → 2025-03-19 11:26 | Outpatient (BNVA) | payer MEDICAID, SELFPAY | PROVIDERS: PCP Physician Assistant Medical; Visit Provider Physician Assistant | DX: Z96.652 Presence of left artificial knee joint (principal); Z48.00 Encounter for change or removal of nonsurgical wound dressing | CPT/HCPCS: 99212 ==

== ENCOUNTER 2025-04-01 07:10 | Outpatient (REF) | payer MEDICAID, SELFPAY ==
--- NOTE | ~2025-04-01 | XR_ITS ---
CLINICAL HISTORY: M25.562 - Pain in left knee Two views of the left knee. AP views of the bilateral knees. Weight bearing views were obtained. COMPARISON: None provided. FINDINGS: Left knee: Cutaneous annika overlie the anterior aspect of the left knee. Zbfiu-ce-xquzfzue suprapatellar joint effusion. Anatomic alignment of left total knee arthroplasty. No evidence of hardware loosening or failure. Visualized portions of the distal femur, proximal tibia and fibula and the patella appear intact. Limited AP view of the right knee: Medial joint space narrowing. Prominent osteophytes along the medial and lateral compartments. Visualized portions of the distal right femur and proximal tibia and fibula appear intact. IMPRESSION: 1. Anatomic alignment of recent left total knee arthroplasty without evidence of acute complication. This document has been electronically signed by: Louie Zelaya MD on 04/02/2025 13:23:20
--- OUTSIDE RECORDS SUMMARY | 2025-04-06 07:12 | XMS_ITS | Clinical Summary ---
Author Organization [facility] Address [address] [place] [address] Care Team Providers Care Creative Services Intern Name Role Phone Hosea Douglas PA-C Primary [...] (1 of 2) 2011 Influenza Vaccine (#1) 2025 RSV Adult > 60+ Yrs or [...] age to complete this topic Care Teams Creative Services Intern Relationship Specialty Start Date End Date Hosea Douglas, JOSSEC PCP - General Medical Services 12/11/21
--- OUTSIDE RECORDS SUMMARY | 2025-04-06 07:12 | XMS_ITS | Data Portability ---
Author Organization [facility] UROLOGY Address [address] [address] [place] [address] Care Team Providers Care Field Application Engineer Name Role Phone NONE, LISTED Primary Care [...] - s/p left THR on 01/08/22 in [place] - surgical wound infection - possible prosthetic [...] - s/p left THR on 01/08/22 in [place] - surgical wound infection - possible prosthetic [...] auto diff 2021 022 [email or web address], [address] [place] [address], [id number], 10:47:10 HbA1c (hemoglobi n A1c), blood 2021 022 [email or web address], [address] [place] [address], [id number], 2 10:47:10 methicilli n resistant staphyloco ccus aureus, culture, nasal 2021 022 [email or web address], [address] [place] [address], 65993, 2 10:47:10 type + screen, blood 2021 022 [email or web address], [address] [place] [address], [id number], 2 10:47:10 CMP, serum or plasma 2021 022 JOSÉ MIGUEL [facility], [address] [place] [address], [id number], 14:03:58 ESR (erythrocy te sedimentat ion rate), blood 2021 [facility], [address] [place] [address], 45[address], 13:29:45 C-reactive protein, quantitati ve, serum or plasma 2021 [email or web address], [address] [place] [address], 77184, 08:04:31 CBC w/ auto diff 2021 [facility], [address] [place] [address], [id number], 12:48:54 CMP, serum or plasma 2021 [facility], [address] [place] [address], 466[address], 13:26:12 ESR (erythrocy te sedimentat ion rate), blood 2021 [facility], [address] [place] [address], 669[address], 12:58:48 C-reactive protein, quantitati ve, serum or [email or web address] [address] [place] [address], [address], 07:18:26 Referral physical therapist referral 2021 [email or web address] Not available 11:50:50 Procedures None recorded. Surgeries total hip arthroplas ty, anterior approach (SURG) 2021 [email or web address] Not available 08:18:[address], hip, w/o contrast 2021 JOSÉ MIGUEL Not available 08/16/202 2 17:05:42 Medication Orders oxycodone 10 mg tablet 2021 022 JOSÉ MIGUEL [place] - [phone], [address] [place], [address], 11:31:26 celecoxib 200 mg capsule 2021 022 [email or web address] [place] - [phone], [address] [place], [address], 2 12:52:05 Patient TargetsNo targets recorded. Patient [...] X10_3 /uL 4.5-11 .0 normal Not Available [place] [address] [facility] [address], [place], [address] 02/15/2022 11:45:46 02/16/20 22 02/15/2022 COMPL ETE BLOOD COUNT AUTO DIFF red blood count 4.55 X10_6 /uL 3.70-5 .00 normal Not Available [facility] [address] [facility] [address], [place], [address] 02/15/2022 11:45:46 02/16/2002/15/2022 COMPL ETE BLOOD COUNT AUTO DIFF hemoglobin 12.5 g/dL 11.0-1 6.0 normal Not Available [facility] [address] [facility] [address], [place], [address] 02/15/2022 11:45:46 02/16/2002/15/2022 COMPL ETE BLOOD COUNT AUTO DIFF hematocrit 41.1 % 33.5-4 5.0 normal Not Available [facility] [address] [facility] [address], [place], [address] 02/15/2022 11:45:46 02/16/20 22 02/15/2022 COMPL ETE BLOOD COUNT AUTO DIFF mean corpuscular volume 90.3 fL 80.0-1 00.0 normal Not Available [facility] [address] [facility] [address], [place], [address] 02/15/2022 11:45:46 02/16/20 22 02/15/2022 COMPL ETE BLOOD COUNT AUTO DIFF mean corpuscular hemoglobin 27.5 pg 27.0-3 4.0 normal Not Available [facility] [address] [address], [place], [address] 02/15/2022 11:45:46 02/16/20 22 02/15/2022 COMPL ETE BLOOD COUNT AUTO DIFF mean corpuscular HGB conc 30.4 g/dL 31.0-3 6.0 low Not Available [facility] [address] [address], [place], [address] 02/15/2022 11:45:46 02/16/20 22 02/15/2022 COMPL ETE BLOOD COUNT AUTO DIFF red cell distribution width 15.0 % 11.5-1 5.0 normal Not Available [facility] [address] [address], [place], [address] 02/15/2022 11:45:46 02/16/20 22 02/15/2022 COMPL ETE BLOOD COUNT AUTO DIFF platelet count 323 X10_3 /uL 150-40 0 normal Not Available [facility] [address] [address], [place], [address] 02/15/2022 11:45:46 02/16/20 22 02/15/2022 COMPL ETE BLOOD COUNT AUTO DIFF immature granulocytes % (auto) 0.2 % Not Available [facility] [address] [facility] [address], [place], [address] 02/15/2022 11:45:46 02/16/20 22 02/15/2022 COMPL ETE BLOOD COUNT AUTO DIFF neutrophils % (auto) 42.5 % Not Available [facility] [address] [facility] [address], [place], [address] 02/15/2022 11:45:46 02/16/20 22 02/15/2022 COMPL ETE BLOOD COUNT AUTO DIFF lymphocytes % (auto) 43.3 % Not Available [facility] [address] [facility] [address], [place], [address] 02/15/2022 11:45:46 02/16/20 22 02/15/2022 COMPL ETE BLOOD COUNT AUTO DIFF monocytes % (auto) 9.8 % Not Available [facility] [address] [address], [place], [address] 02/15/2022 11:45:46 02/16/20 22 02/15/2022 COMPL ETE BLOOD COUNT AUTO DIFF eosinophils % (auto) 3.7 % Not Available [facility] [address] [address], [place], [address] 02/15/2022 11:45:46 02/16/20 22 02/15/2022 COMPL ETE BLOOD COUNT AUTO DIFF basophils % (auto) 0.5 % Not Available [address] [address], [place], [address] 02/15/2022 11:45:46 02/16/20 22 02/15/2022 COMPL ETE BLOOD COUNT AUTO DIFF immature granulocytes # (auto) 0.02 X10_3 /uL 0.00-0 .09 normal Not Available [address] [address], [place], [address] 02/15/2022 11:45:46 02/16/20 22 02/15/2022 COMPL ETE BLOOD COUNT AUTO DIFF neutrophils # (auto) 4.2 X10_3 /uL 1.5-7. 8 normal Not Available [address] [address], [place], [address] 02/15/2022 11:45:46 02/16/20 22 02/15/2022 COMPL ETE BLOOD COUNT AUTO DIFF lymphocytes # (auto) 4.3 X10_3 /uL 1.0-4. 8 normal Not Available [facility] [address] [facility] [address], [place], [address] 02/15/2022 11:45:46 02/16/20 22 02/15/2022 COMPL ETE BLOOD COUNT AUTO DIFF monocytes # (auto) 1.0 X10_3 /uL 0.0-0. 8 high Not Available [facility] [address] [address], [place], [address] 02/15/2022 11:45:46 02/16/20 22 02/15/2022 COMPL ETE BLOOD COUNT AUTO DIFF eosinophils # (auto) 0.4 X10_3 /uL 0.0-0. 5 normal Not Available [facility] [address] [address], [place], [address] 02/15/2022 11:45:46 02/16/20 22 02/15/2022 COMPL ETE BLOOD COUNT AUTO DIFF basophils # (auto) 0.1 X10_3 /uL 0.0-0. 2 normal Not Available [facility] [address] [address], [place], [address] 02/15/2022 11:45:46 02/16/20 22 02/15/2022 COMPL ETE BLOOD COUNT AUTO DIFF nucleated RBC% 0.0 /100_ WBC 0.0-0. 0 normal Not Available [facility] [address] [address], [place], [address] 02/15/2022 11:45:46 02/16/20 22 02/15/2022 ERYTH ROCYT E SEDIM ENTAT ION RATE erythrocyte sedimentatio n rate 34 mm/HR 0-30 high Not Available [facility] [address] [address], [place], [address] 02/15/2022 11:59:22 02/16/20 22 02/15/2022 COMPR EHENS PARMINDER METAB OLIC PANEL sodium 138 mmol/ L 137-14 6 normal Not Available [facility] [address] [address], [place], [address] 02/15/2022 12:02:00 02/16/20 22 02/15/2022 COMPR EHENS PARMINDER METAB OLIC PANEL potassium,K 4.0 mmol/ L 3.5-5. 3 normal Not Available [facility] [address] [address], [place], [address] 02/15/2022 12:02:00 02/16/20 22 02/15/2022 COMPR EHENS PARMINDER METAB OLIC PANEL chloride 101 mmol/ L 98-107 normal Not Available [facility] [address] [address], [place], [address] 02/15/2022 12:02:00 02/16/20 22 02/15/2022 COMPR EHENS PARMINDER METAB OLIC PANEL carbon dioxide 28 mmol/ L 23-32 normal Not Available [facility] [address], [place], [address] 02/15/2022 12:02:00 02/16/20 22 02/15/2022 COMPR EHENS PARMINDER METAB OLIC PANEL anion gap 9 mmol/ L 5-15 normal Not Available [facility] [address], [place], [address] 02/15/2022 12:02:00 02/16/20 22 02/15/2022 COMPR EHENS PARMINDER METAB OLIC PANEL blood urea nitrogen 4 mg/dL 5-25 low Not Available [facility] [address], [place], [address] 02/15/2022 12:02:00 02/16/20 22 02/15/2022 COMPR EHENS PARMINDER METAB OLIC PANEL creatinine 0.9 mg/dL 0.5-1. 1 normal Not Available [facility] [address], [place], [address] 02/15/2022 12:02:00 02/16/20 22 02/15/2022 COMPR EHENS PARMINDER METAB OLIC PANEL estimated GFR ( nikhil 81 >=60 mL/min / Not Available [facility] [address], [place], [address] 02/15/2022 12:02:00 02/16/20 22 02/15/2022 COMPR EHENS PARMINDER METAB OLIC PANEL estimated GFR (non afr nikhil 69 >=60 mL/min / Not Available [facility] [address], [place], [address] 02/15/2022 12:02:00 02/16/20 22 02/15/2022 COMPR EHENS PARMINDER METAB OLIC PANEL BUN/creatini ne ratio 4.4 10.0-2 0.0 low Not Available [facility] [address], [place], [address] 02/15/2022 12:02:00 02/16/20 22 02/15/2022 COMPR EHENS PARMINDER METAB OLIC PANEL glucose 91 mg/dL <100 -fasti ng normal Not Available [facility] [address], [place], [address] 02/15/2022 12:02:00 05/19/02/15/2022 COMPR EHENS PARMINDER METAB OLIC PANEL calcium 9.0 mg/dL 8.6-10 .3 normal Not Available [facility] [address] [address], [place], [address] 02/15/2022 12:02:00 02/16/20 22 02/15/2022 COMPR EHENS PARMINDER METAB OLIC PANEL bilirubin,to gab < 0.2 mg/dL <1.2 Not Available [facility] [address] [address], [place], [address] 02/15/2022 12:02:00 02/16/20 22 02/15/2022 COMPR EHENS PARMINDER METAB OLIC PANEL aspartate amino transferase 17 U/L 15-41 normal Not Available [facility] [address] [address], [place], [address] 02/15/2022 12:02:00 02/16/20 22 02/15/2022 COMPR EHENS PARMINDER METAB OLIC PANEL alanine aminotransfe rase 12 U/L 14-54 low Not Available [facility] [address] [address], [place], [address] 02/15/2022 12:02:00 02/16/20 22 02/15/2022 COMPR EHENS PARMINDER METAB OLIC PANEL total protein 7.2 g/dL 6.4-8. 3 normal Not Available [facility] [address] [address], [place], [address] 02/15/2022 12:02:00 02/16/20 22 02/15/2022 COMPR EHENS PARMINDER METAB OLIC PANEL albumin level 3.9 g/dL 4.0-5. 0 low Not Available [facility] [address] [facility] [address], [place], [address] 02/15/2022 12:02:00 02/16/20 22 02/15/2022 COMPR EHENS PARMINDER METAB OLIC PANEL albumin/glob ulin ratio 1.2 1.0-2. 6 normal Not Available [facility] [address] [facility] [address], [place], [address] 02/15/2022 12:02:00 02/16/20 22 02/15/2022 COMPR EHENS PARMINDER METAB OLIC PANEL alkaline phosphatase 202 U/L 35-104 high Not Available [facility] [address] [facility] [address], [place], [address] 02/15/2022 12:02:00 02/16/20 22 02/15/2022 C-DILIA CTIVE PROTE IN C-reactive protein 1.59 mg/dL <0.50 high Not Available [facility] [address] [facility] [address], [place], [address] 02/15/2022 12:02:01 02/20/20 22 02/19/2022 SURGI SOFY PATHO LOGY results Run: 02/22 1047 Speci men Inqui ry ----- ----- ----- ----- ----- ----- ----- ----- ----- ----- ----- ----- ----- ----- ----- ---- Name: ZEYAD MANCILLA PE NNY M Age/S ex: 61/F Locat ion: M7.EM Acct: [id number] Unit: [id number] Statu s: ADM IN Room/ Bed: EM772 0-P Re02/19 Disch : Att Dr: Amber caedt MD ----- ----- ----- ----- ----- ----- [...] /6 Froze n Secti on, Initi al 17415 /3 39951 Level 4 - Gross and Micro scopi c/3 Kala d (sign ature on file) _ Ean andersen MD 02/22 1047 ----- ----- ----- ----- ----- ----- ----- ----- ----- ----- ----- ----- ----- ----- ----- ---- END OF REPOR T Not Available [facility] [address] [facility] [address], [place], [address] 02/22/2022 10:48:07 03/07/20 22 03/07/2022 COMPL ETE BLOOD COUNT AUTO DIFF white blood count 10.2 X10_3 /uL 4.5-11 .0 normal Not Available [facility] [address], [place], [address] 03/07/2022 12:48:54 03/07/20 22 03/07/2022 COMPL ETE BLOOD COUNT AUTO DIFF red blood count 4.42 X10_6 /uL 3.70-5 .00 normal Not Available [facility] [address], [place], [address] 03/07/2022 12:48:54 03/07/20 22 03/07/2022 COMPL ETE BLOOD COUNT AUTO DIFF hemoglobin 12.0 g/dL 11.0-1 6.0 normal Not Available [facility] [address], [place], [address] 03/07/2022 12:48:54 03/07/20 22 03/07/2022 COMPL ETE BLOOD COUNT AUTO DIFF hematocrit 39.0 % 33.5-4 5.0 normal Not Available [facility] [address] [address], [place], [address] 03/07/2022 12:48:54 03/07/20 22 03/07/2022 COMPL ETE BLOOD COUNT AUTO DIFF mean corpuscular volume 88.2 fL 80.0-1 00.0 normal Not Available [address] [address], [place], [address] 03/07/2022 12:48:54 03/07/20 22 03/07/2022 COMPL ETE BLOOD COUNT AUTO DIFF mean corpuscular hemoglobin 27.1 pg 27.0-3 4.0 normal Not Available [address] [address], [place], [address] 03/07/2022 12:48:54 03/07/20 22 03/07/2022 COMPL ETE BLOOD COUNT AUTO DIFF mean corpuscular HGB conc 30.8 g/dL 31.0-3 6.0 low Not Available [address] [address], [place], [address] 03/07/2022 12:48:54 03/07/20 22 03/07/2022 COMPL ETE BLOOD COUNT AUTO DIFF red cell distribution width 14.3 % 11.5-1 5.0 normal Not Available [address] [address], [place], [address] 03/07/2022 12:48:54 03/07/20 22 03/07/2022 COMPL ETE BLOOD COUNT AUTO DIFF platelet count 371 X10_3 /uL 150-40 0 normal Not Available [facility] [address] [address], [place], [address] 03/07/2022 12:48:54 03/07/20 22 03/07/2022 COMPL ETE BLOOD COUNT AUTO DIFF immature granulocytes % (auto) 0.2 % Not Available [address] [address], [place], [address] 03/07/2022 12:48:54 03/07/20 22 03/07/2022 COMPL ETE BLOOD COUNT AUTO DIFF neutrophils % (auto) 42.1 % Not Available [address] [address], [place], [address] 03/07/2022 12:48:54 03/07/20 22 03/07/2022 COMPL ETE BLOOD COUNT AUTO DIFF lymphocytes % (auto) 43.8 % Not Available [facility] [address] [address], [place], [address] 03/07/2022 12:48:54 03/07/20 22 03/07/2022 COMPL ETE BLOOD COUNT AUTO DIFF monocytes % (auto) 8.0 % Not Available [address] [address], [place], [address] 03/07/2022 12:48:54 03/07/20 22 03/07/2022 COMPL ETE BLOOD COUNT AUTO DIFF eosinophils % (auto) 5.0 % Not Available [address] [address], [place], [address] 03/07/2022 12:48:54 03/07/20 22 03/07/2022 COMPL ETE BLOOD COUNT AUTO DIFF basophils % (auto) 0.9 % Not Available [address] [address], [place], [address] 03/07/2022 12:48:54 03/07/20 22 03/07/2022 COMPL ETE BLOOD COUNT AUTO DIFF immature granulocytes # (auto) 0.02 X10_3 /uL 0.00-0 .09 normal Not Available [facility] [address] [address], [place], [address] 03/07/2022 12:48:54 03/07/20 22 03/07/2022 COMPL ETE BLOOD COUNT AUTO DIFF neutrophils # (auto) 4.3 X10_3 /uL 1.5-7. 8 normal Not Available [facility] [address] [address], [place], [address] 03/07/2022 12:48:54 03/07/20 22 03/07/2022 COMPL ETE BLOOD COUNT AUTO DIFF lymphocytes # (auto) 4.5 X10_3 /uL 1.0-4. 8 normal Not Available [facility] [address] [address], [place], [address] 03/07/2022 12:48:54 03/07/20 22 03/07/2022 COMPL ETE BLOOD COUNT AUTO DIFF monocytes # (auto) 0.8 X10_3 /uL 0.0-0. 8 normal Not Available [address] [address], [place], [address] 03/07/2022 12:48:54 03/07/20 22 03/07/2022 COMPL ETE BLOOD COUNT AUTO DIFF eosinophils # (auto) 0.5 X10_3 /uL 0.0-0. 5 normal Not Available [address] [address], [place], [address] 03/07/2022 12:48:54 03/07/20 22 03/07/2022 COMPL ETE BLOOD COUNT AUTO DIFF basophils # (auto) 0.1 X10_3 /uL 0.0-0. 2 normal Not Available [address] [address], [place], [address] 03/07/2022 12:48:54 03/07/20 22 03/07/2022 COMPL ETE BLOOD COUNT AUTO DIFF nucleated RBC% 0.0 /100_ WBC 0.0-0. 0 normal Not Available [address] [address], [place], [address] 03/07/2022 12:48:54 03/07/20 22 03/07/2022 ERYTH ROCYT E SEDIM ENTAT ION RATE erythrocyte sedimentatio n rate 71 mm/HR 0-30 high Not Available [address] [address], [place], [address] 03/07/2022 12:58:48 03/07/20 22 03/07/2022 COMPR EHENS PARMINDER METAB OLIC PANEL sodium 137 mmol/ L 137-14 6 normal Not Available [address] [address], [place], [address] 03/07/2022 13:26:12 03/07/20 22 03/07/2022 COMPR EHENS PARMINDER METAB OLIC PANEL potassium,K 4.0 mmol/ L 3.5-5. 3 normal Not Available [address] [address], [place], [address] 03/07/2022 13:26:12 03/07/20 22 03/07/2022 COMPR EHENS PARMINDER METAB OLIC PANEL chloride 100 mmol/ L 98-107 normal Not Available [address] [address], [place], [address] 03/07/2022 13:26:12 03/07/20 22 03/07/2022 COMPR EHENS PARMINDER METAB OLIC PANEL carbon dioxide 27 mmol/ L 23-32 normal Not Available [facility] [address] [facility] [address], [place], [address] 03/07/2022 13:26:12 03/07/20 22 03/07/2022 COMPR EHENS PARMINDER METAB OLIC PANEL anion gap 10 mmol/ L 5-15 normal Not Available [facility] [address] [facility] [address], [place], [address] 03/07/2022 13:26:12 03/07/20 22 03/07/2022 COMPR EHENS PARMINDER METAB OLIC PANEL blood urea nitrogen 6 mg/dL 5-25 normal Not Available [facility] [address] [facility] [address], [place], [address] 03/07/2022 13:26:12 03/07/20 22 03/07/2022 COMPR EHENS PARMINDER METAB OLIC PANEL creatinine 0.9 mg/dL 0.5-1. 1 normal Not Available [facility] [address] [address], [place], [address] 03/07/2022 13:26:12 03/07/20 22 03/07/2022 COMPR EHENS PARMINDER METAB OLIC PANEL estimated GFR ( nikhil 81 >=60 mL/min / Not Available [facility] [address] [facility] [address], [place], [address] 03/07/2022 13:26:12 03/07/20 22 03/07/2022 COMPR EHENS PARMINDER METAB OLIC PANEL estimated GFR (non afr nikhil 69 >=60 mL/min / Not Available [facility] [address] [facility] [address], [place], [address] 03/07/2022 13:26:12 03/07/20 22 03/07/2022 COMPR EHENS PARMINDER METAB OLIC PANEL BUN/creatini ne ratio 6.7 10.0-2 0.0 low Not Available [facility] [address] [facility] [address], [place], [address] 03/07/2022 13:26:12 03/07/20 22 03/07/2022 COMPR EHENS PARMINDER METAB OLIC PANEL glucose 95 mg/dL <100 -fasti ng normal Not Available [facility] [address] [facility] [address], [place], [address] 03/07/2022 13:26:12 03/07/20 22 03/07/2022 COMPR EHENS PARMINDER METAB OLIC PANEL calcium 9.2 mg/dL 8.6-10 .3 normal Not Available [facility] [address] [address], [place], [address] 03/07/2022 13:26:12 03/07/20 22 03/07/2022 COMPR EHENS PARMINDER METAB OLIC PANEL bilirubin,to gab < 0.2 mg/dL <1.2 Not Available [facility] [address] [address], [place], [address] 03/07/2022 13:26:12 03/07/20 22 03/07/2022 COMPR EHENS PARMINDER METAB OLIC PANEL aspartate amino transferase 16 U/L 15-41 normal Not Available [facility] [address] [address], [place], [address] 03/07/2022 13:26:12 03/07/20 22 03/07/2022 COMPR EHENS PARMINDER METAB OLIC PANEL alanine aminotransfe rase < 5 U/L 14-54 low Not Available [facility] [address] [address], [place], [address] 03/07/2022 13:26:12 03/07/20 22 03/07/2022 COMPR EHENS PARMINDER METAB OLIC PANEL total protein 7.3 g/dL 6.4-8. 3 normal Not Available [facility] [address] [address], [place], [address] 03/07/2022 13:26:12 03/07/20 22 03/07/2022 COMPR EHENS PARMINDER METAB OLIC PANEL albumin level 4.0 g/dL 4.0-5. 0 normal Not Available [facility] [address] [address], [place], [address] 03/07/2022 13:26:12 03/07/20 22 03/07/2022 COMPR EHENS PARMINDER METAB OLIC PANEL albumin/glob ulin ratio 1.2 1.0-2. 6 normal Not Available [facility] [address] [facility] [facility] [address], [place], [address] 03/07/2022 13:26:12 03/07/20 22 03/07/2022 COMPR EHENS PARMINDER METAB OLIC PANEL alkaline phosphatase 182 U/L 35-104 high Not Available [facility] [address] [facility] [address], [place], [address] 03/07/2022 13:26:12 03/07/20 22 03/07/2022 C-DILIA CTIVE PROTE IN C-reactive protein 1.55 mg/dL <0.50 high Not Available [facility] [address] [facility] [address], [place], [address] 03/07/2022 13:26:13 05/14/20 22 05/14/2022 TYPE AND PETER Lorenzo BBCarina report Run: 05/14 1319 Speci men Inqui ry ----- ----- ----- ----- ----- ----- ----- ----- ----- ----- ----- ----- ----- ----- ----- ---- Name: FIONA ROWLEY M Age/S ex: 61/F Locat ion: PAT.Dewayne Caceres Acct: [id number] Unit: [id number] Statu s: PRE REF Room/ Bed: Re05/14 Disch : Att Dr: Amber cadet MD ----- ----- ----- ----- ----- ----- ----- ----- ----- ----- ----- ----- ----- ----- ----- ---- Blood Type CELI WILLARD Ab Peter lorenzo (Gel) CELI WILLARD ----- ----- ----- ----- ----- ----- ----- ----- ----- ----- ----- ----- ----- ----- ----- ---- END OF REPOR T Not Available [facility] [address] [facility] [address], [place], [address] 05/14/2022 13:19:42 05/14/2005/14/2022 ANNE Goodman ABO/R H TYPE [facility] report Run: 05/14 1319 Speci men Inqui ry ----- ----- ----- ----- ----- ----- ----- ----- ----- ----- ----- ----- ----- ----- ----- ---- Name: ZEYAD FIONA MANCILLA Age/S ex: 61/F Locat ion: PAT.E M Acct: [id number] Unit: [id number] Statu s: PRE REF Room/ Bed: Re05/14 Disch : Att Dr: Amber cadet MD ----- ----- ----- ----- ----- ----- ----- ----- ----- ----- ----- ----- ----- ----- ----- ---- SATURNINO SHANEED TO BE DRAWN ON DOS ----- ----- ----- ----- ----- ----- ----- ----- ----- ----- ----- ----- ----- ----- ----- ---- END OF REPOR T Not Available [facility] [address] [facility] [address], [place], [address] 05/14/2022 13:19:43 05/14/20 22 05/14/2022 ERYTH ROCYT E SEDIM ENTAT ION RATE erythrocyte sedimentatio n rate 66 mm/HR 0-30 high Not Available [facility] [address] [facility] [address], [place], [address] 05/14/2022 13:29:45 05/14/20 22 05/14/2022 HEMOG LOBIN A1C hemoglobin A1C 5.8 4.3-5. 9 normal Not Available [facility] [address] [facility] [address], [place], [address] 05/14/2022 13:32:47 05/14/20 22 05/14/2022 HEMOG LOBIN A1C estimated average glucose 120 mg/dL Not Available [facility] [address] [facility] [address], [place], [address] 05/14/2022 13:32:47 05/14/20 22 05/14/2022 TYPE AND SCREDewayne Lorenzo BBK report Run: 05/14 1400 Speci men Inqui ry ----- ----- ----- ----- ----- ----- ----- ----- ----- ----- ----- ----- ----- ----- ----- ---- Name: FIONA ROWLEYY M Age/S ex: 61/F Locat ion: PAT.E M Acct: [id number] Unit: [id number] Statu s: PRE REF Room/ Bed: Re05/14 [...] ---- END OF REPOR T Not Available [facility] [address] [facility] [address], [place], [address] 05/14/2022 14:00:28 05/14/20 22 05/14/2022 C-DILIA CTIVE PROTE IN C-reactive protein 1.18 mg/dL <0.50 high Not Available [facility] [address] [facility] [address], [place], [address] 05/14/2022 14:03:29 05/14/20 22 05/14/2022 COMPR EHENS PARMINDER METAB OLIC PANEL sodium 141 mmol/ L 137-14 6 normal Not Available [facility] [address] [facility] [address], [place], [address] 05/14/2022 14:03:58 05/14/20 22 05/14/2022 COMPR EHENS PARMINDER METAB OLIC PANEL potassium,K 3.9 mmol/ L 3.5-5. 3 normal Not Available [facility] [address] [facility] [address], [place], [address] 05/14/2022 14:03:58 05/14/20 22 05/14/2022 COMPR EHENS PARMINDER METAB OLIC PANEL chloride 104 mmol/ L 98-107 normal Not Available [facility] Lab [address] [facility] [address], [place], [address] 05/14/2022 14:03:58 05/14/20 22 05/14/2022 COMPR EHENS PARMINDER METAB OLIC PANEL carbon dioxide 29 mmol/ L 23-32 normal Not Available [facility] Lab [address] [facility] [address], [place], [address] 05/14/2022 14:03:58 05/14/20 22 05/14/2022 COMPR EHENS PARMINDER METAB OLIC PANEL anion gap 8 mmol/ L 5-15 normal Not Available [facility] Lab [address] [facility] [address], [place], [address] 05/14/2022 14:03:58 05/14/20 22 05/14/2022 COMPR EHENS PARMINDER METAB OLIC PANEL blood urea nitrogen 5 mg/dL 5-25 normal Not Available [facility] Lab [address] [facility] [address], [place], [address] 05/14/2022 14:03:58 05/14/20 22 05/14/2022 COMPR EHENS PARMINDER METAB OLIC PANEL creatinine 0.9 mg/dL 0.5-1. 1 normal Not Available [facility] [address] [facility] [address], [place], [address] 05/14/2022 14:03:58 05/14/20 22 05/14/2022 COMPR EHENS PARMINDER METAB OLIC PANEL estimated GFR ( nikhil 81 >=60 mL/min / Not Available [facility] [address] [address], [place], [address] 05/14/2022 14:03:58 05/14/20 22 05/14/2022 COMPR EHENS PARMINDER METAB OLIC PANEL estimated GFR (non afr nikhil 69 >=60 mL/min / Not Available [facility] [address] [address], [place], [address] 05/14/2022 14:03:58 05/14/20 22 05/14/2022 COMPR EHENS PARMINDER METAB OLIC PANEL BUN/creatini ne ratio 5.6 10.0-2 0.0 low Not Available [facility] [address] [address], [place], [address] 05/14/2022 14:03:58 05/14/20 22 05/14/2022 COMPR EHENS PARMINDER METAB OLIC PANEL glucose 101 mg/dL <100 -fasti ng high Not Available [facility] [address] [address], [place], [address] 05/14/2022 14:03:58 05/14/20 22 05/14/2022 COMPR EHENS PARMINDER METAB OLIC PANEL calcium 9.4 mg/dL 8.6-10 .3 normal Not Available [facility] [address] [address], [place], [address] 05/14/2022 14:03:58 05/14/20 22 05/14/2022 COMPR EHENS PARMINDER METAB OLIC PANEL bilirubin,to gab < 0.2 mg/dL <1.2 Not Available [facility] Lab [address] [address], [place], [address] 05/14/2022 14:03:58 05/14/20 22 05/14/2022 COMPR EHENS PARMINDER METAB OLIC PANEL aspartate amino transferase 23 U/L 15-41 normal Not Available [facility] Lab [address] [address], [place], [address] 05/14/2022 14:03:58 05/14/20 22 05/14/2022 COMPR EHENS PARMINDER METAB OLIC PANEL alanine aminotransfe rase 13 U/L 14-54 low Not Available [facility] [address] [address], [place], [address] 05/14/2022 14:03:58 05/14/20 22 05/14/2022 COMPR EHENS PARMINDER METAB OLIC PANEL total protein 7.5 g/dL 6.4-8. 3 normal Not Available [facility] [address] [address], [place], [address] 05/14/2022 14:03:58 05/14/20 22 05/14/2022 COMPR EHENS PARMINDER METAB OLIC PANEL albumin level 4.2 g/dL 4.0-5. 0 normal Not Available [facility] [address] [address], [place], [address] 05/14/2022 14:03:58 05/14/20 22 05/14/2022 COMPR EHENS PARMINDER METAB OLIC PANEL albumin/glob ulin ratio 1.3 1.0-2. 6 normal Not Available [facility] [address] [address], [place], [address] 05/14/2022 14:03:58 05/14/20 22 05/14/2022 COMPR EHENS PARMINDER METAB OLIC PANEL alkaline phosphatase 162 U/L 35-104 high Not Available [facility] Lab [address] [address], [place], [address] 05/14/2022 14:03:58 05/14/20 22 05/15/2022 MRSA/ MSSA PRE-O P (NARE S) MRSA/mssa pre-op (nares) No Methic illin Sensit parminder or Resist ant Staph aureus isolat ed. Not Available [facility] [address] [address], [place], [address] 05/15/2022 14:02:41 05/22/20 22 05/22/2022 SURGI SOFY PATHO LOGY results Run: 05/24 0095 Speci men Inqui ry ----- ----- ----- ----- ----- ----- ----- ----- ----- ----- ----- ----- ----- ----- ----- ---- Name: FIONA ROWLEY Age/S ex: 62/F Locat ion: PACU. EM Acct: [id number] Unit: [id number] Statu s: DIS IN Room/ Bed: PACU. [...] CPT Proce dures :[place] 68276 Hemat oxyli n + Eosin Stain /3 35477 Level 3 - Gross and Micro scopi c Kala d (sign ature on file) _ Josesito felder MD 05/24 1445 ----- ----- ----- ----- ----- ----- ----- ----- ----- ----- ----- ----- ----- ----- ----- ---- END OF REPOR T Not Available [facility] Lab [address], [place], [address] 05/24/2022 14:45:34 02/17/20 22 02/16/2022 XR, hip, unila teral [facility] [address] [place], [place] [address] [phone] Patien t Name: NADIA MILLER Medica l Record #: [id number] Addres s: [address] [facility] t#: [id number] City/S mit[place]/Z ip: [place] [address]: Kate zayas PAC Phone: Insura nce: Medica re A&B /Ag e/Sex: 1959/6 0/F [facility] No PCC Admit/ Reg Date: Orderi sudheer Dr: Kate zayas, PAC Locati on: [facility] EM/ PCP: Pcp-No n StaffMd Date of Servic e: Order (s): XR hip LT min 2V CPT Code: 90951 Report Number : [id number] Reason for Exam: PAIN Pain [...] ed degene rative change s of the [place] right hip. Dictat ed By: Claribel jasso MD 1454 Signed By: Gene Lucas MD 1500 TD/TT: 1454 Tech: [id number] cc: LHELA; PCPNS* Kate Hatfield eux, PAC; Loreta Waldrop [facility] Rad [address], [place], [address] 02/20/2022 15:35:03 02/17/20 22 02/15/2022 XR, hip, unila teral , 2 or 3 view No observ ation record ed. [facility]: Jethro [address] [facility], [place], [address], 02/20/2022 15:35:04 02/20/20 22 02/19/2022 XR, hip, unila teral , 1 view [facility] Medica l [facility] [address] [place] [address] Patien t Name: GISELLA BaigNADIAMaura Caceres Medica l Record #: [id number] Addres s: [address] [facility] Accoun t#: [id number] City/S mitchell/Z ip: [place] [address]: Elvia Martinez MD Phone: Insura nce: Medica re A&B /Ag e/Sex: 1959/6 0/F [facility] No PCC Admit/ Reg Date: Calii sudheer Johnson: Kate zayas, PAC Locati on: PACU.E M/PACU . PCP: Memo Nguyen Md Date of Servic e: Order (s): XR hip LT 1V CPT Code: 42909 Report Number : [id number] Reason for Exam: s/p L [...] zayas, PAC; Elvia Martinez MD; Loreta Waldrop [facility] Rad [address] [facility] [address], [place], [address] 02/20/2022 15:35:04 02/20/20 22 02/19/2022 XR, hip, unila teral , 2 or 3 view No observ ation record ed. llheureux [facility] [address] [facility], [place], [address], 02/20/2022 15:35:05 03/09/20 22 03/09/2022 XR, hip + pelvi s, unila teral [facility] [address] [place] [address] Patien t Name: NADIA MILLER Medica l Record #: [id number] Addres s: [address] [facility] Accoun t#: [id number] City/[place]/Z ip: [place] [address]: Kate zayas PAC Phone: Insura nce: Medica re A&B /Ag e/Sex: 1959/ [birth year]/F [facility] No PCC Admit/ Reg Date: Orderi ng Dr: Kate zayas, PAC Locati on: [facility] EM/ PCP: Pcp-No maura StaffMd Date of Servic e: Order (s): XR hip pelvis LT min 2V CPT Code: 68841 Report Number : [id number] Reason for Exam: HIP PAIN [...] PCPNS* Kate zayas, PAC; Dequan vuLoreta r[facility]ne [facility] Rad [address], [place], [address] 03/13/2022 16:45:35 03/09/20 22 03/07/2022 XR, hip, unila teral , 2 or 3 view No observ ation record ed. [facility]: Jethro [address] [facility], [place], [address], 03/13/2022 16:45:35 05/15/2005/15/2022 CT, hip, w/o contr ast [facility] Medica l [facility] [address] [place] [address] [phone] Patien t Name: NADIA MILLER Morris Medica l Record #: [id number] Addres s: [address] [facility] Accoun t#: [id number] City/S mitchell/Z ip: [place] [address]: Rigo Kennedy PAC Phone: Insura nce: Medica re A&B /Ag e/Sex: 1959/ [birth year]/F [facility] No PCC Admit/ Reg Date: Orderi sudheer Dr: Rigo Kennedy, PAC Locati on: DI.CTE M/ PCP: Pcp-No n StaffMd Date of Servic e: Order (s): CT johanna hip RT wo contra st CPT Code: 73765 Report Number : [id number] Reason for Exam: OSTEOA RTHRIT [...] Norris i, MD 1704 TD/TT: 1658 Tech: [facility] 01 cc: GENTRY; PCPNS* PIERCE Guevara; Loreta Waldrop [facility] Rad [address] [facility] [address], [place], [address] 05/16/2022 11:03:39 05/22/2005/22/2022 XR, hip, unila teral , 1 view [facility] Medica [facility] [address] [place] [address] Patien t Name: ZEYADKarthik PRIYA BaigMaura Caceres Medica l Record #: [id number] Addres s: [address] [facility] Accoun t#: [id number] City/S mitchell/Z ip: [place] [address]: Elvia Martinez MD Phone: Insura nce: Medica re A&B /Ag e/Sex: 1959/ 1/F [facility] No PCC Admit/ Reg Date: Waldo willard Dr: Kate zayas PAC Locati on: PACU.E M/PACU . PCP: PcpHugo Nguyen Md Date of Servic e: Order (s): XR hip RT 1V CPT Code: 92458 Report Number : [id number] Reason for Exam: s/p R [...] zayas PAC; Elvia Martinez MD; Loreta Waldrop [facility] Rad [address] [address], [place], [address] 06/05/2022 16:33:25 05/22/20 22 05/22/2022 XR, hip, unila teral No observ ation record ed. [facility] [address] [place] [address], [address], 06/07/2022 13:05:01 05/23/20 22 05/14/2022 EKG elect tayla jamison [facility] Medica [address] [address] [phone] Patien t Name: GISELLA BaigNADIAMaura Caceres Medica l Record #: [id number] Addres s: [address] [facility] Accoun t#: [id number] City/S mitchell/Z ip: [place] [address]: Elvia Martinez MD Phone: Insura nce: Medica re A&B /Ag e/Sex: 1959/6 0/F [facility] No PCC Admit/ Reg Date: Orderi ng Dr: Elvia Martinez MD Locati on: PAT.EM / PCP: Pcp-No n Staff, Md Date of Servic e: Order (s): EKG Electr ocardi ogram CPT Code: 18899 Report Number : [id number] Reason for Exam: pre op Sinus rhythm , Regula r, HR 79 NORMAL AXIS AND INTERV ALS. Possib le inferi or geospatial image analyst ior infarc t - age undete rmined Anteri or T wave abnorm ality is nonspe cific Compar erika Summar y: No serial compar erika made Summar y: Abnorm al ECG Dictat ed By: Jael Ji MD 110 Signed By: Marya Ji MD 1301 TD/TT: 1102 Tech: RAFAEL cc: PCPNS; SEAN * Elvia Martinez MD; Loreta Waldrop [facility] Rad [address] [facility] [address], [place], [address] 06/07/2022 11:54:34 06/08/20 22 06/08/2022 XR, hip + pelvi s, bilat eral [facility] [address] [place], [place] [address] [phone] Patien t Name: NADIA MILLER Medica l Record #: [id number] Addres s: [address] [facility] Accoun t#: [id number] City/S mitchell/Z ip: [place] [address]: Kate zayas PAC Phone: Insura nce: Medica re A&B /Ag e/Sex: 1959/6 1/F [facility] No PCC Admit/ Reg Date: Orderi sudheer Dr: Kate zayas, PAC Locati on: [facility] EM/ PCP: PcpHugo Nguyen Md Date of Servic e: Order (s): XR hip pelvis BI min 3V CPT Code: 28018 Report Number : [id number] Reason for Exam: HIP PAIN [...] MARGUERITE; PCPNS* Kate zayas, PAC; Loreta Waldrop [facility] Rad [address], [place], [address] 06/12/2022 14:34:30 06/08/20 22 06/06/2022 XR, hip, bilat eral No observ ation record ed. [facility] At[facility]: Jethro [address] [facility], [place], [address], 06/12/2022 14:34:55 Result Notes Documentation Provider Name and Address Organization Details Recorded Time Xr, Hip + Pelvis, Unilateral : [facility] [address] [place] [address] Patient Name: LAURA HICKMAN Medical Record#: [id number] Address: [address] [place] [address] City/State/Zip: [place] [address]: Kate Young PAC Insurance: Medicare A&B /Age/Sex: 1960/61/F [facility] No PCC Admit/Reg Date: 03/06/[address]: Kate Young, PAC Location: .CEM/ PCP: Pcp-Non StaffMd Date of Service: 03/07/22 Order (s): XR hip pelvis LT min 2V CPT Code: 95002 Report Number: [id number] Reason for Exam: HIP PAIN XR hip [...] MD 03/09/22 1029 TD/TT: 03/09/22 1021 Tech: [id number] cc: MARGUERITE; HELENA* Kate Young, PAC; Oracio Douglas, HELEN [address] [place] [address], [phone] 03/13/2022 16:45:35 Ct, Hip, W/o Contrast : [place] [address] Patient Name: LAURA HICKMAN Medical Record#: [id number] Address: [address] [place] [address] City/State/Zip: [place] [address]: Bindu Kennedy PAC Insurance: Medicare A&B /Age/Sex: 1960/61/F [facility] No PCC Admit/Reg Date: 05/14/[address]: Bindu Kennedy, PAC Location: DI.CTEM/ PCP: Pcp-Marie Nguyen Md Date of Service: 05/14/22 Order (s): CT johanna hip RT wo contrast CPT Code: 09908 Report Number: [id number] Reason for Exam: OSTEOARTHRITIS OF RIGHT HIP [...] of the right hip. Dictated By: Mary Kauffman MD 05/15/221658 Signed By: Mary Kauffman MD 05/15/22 1705 TD/TT: 05/15/221658 Tech: [id number] cc: GENTRY; CHECONS* Bindu Kennedy, PIERCE; Oracio Douglas PA [address] [place] [address], [phone] 05/16/2022 11:03:39 Xr, Hip, Unilateral, 1 View : [place] [id number] Patient Name: LAURA HICKMAN Medical Record#: [id number] Address: [address] [place] [address] City/State/Zip: [place] [address]: Geovany Martinez MD Insurance: Medicare A&B /Age/Sex: 1960/62/F [facility] No PCC Admit/Reg Date: 05/22/[address]: PIERCE Johnson Location: PACU.EM/PACU.EM-11 PCP: Mike Nguyen Md Date of Service: 05/22/22 Order (s): XR hip RT 1V CPT Code: 76177 Report Number: [id number] Reason for Exam: s/p R ANNETTE XR [...] PAC; Geovany Martinez MD; Oracio Douglas PA [address] [place] [address], [phone], [facility] 06/05/2022 16:33:25 Xr, Hip + Pelvis, Bilateral : [facility] at [address] [address] Patient Name: LAURA HICKMAN Medical Record#: [id number] Address: [address] [place] [address] City/State/Zip: [place] [address]: Kate Young PAC Insurance: Medicare A&B /Age/Sex: 1960/62/F [facility] No PCC Admit/Reg Date: 06/06/[address]: PIERCE Johnson Location: [facility]/ PCP: Mike StaffMd Date of Service: 06/06/22 Order (s): XR hip pelvis BI min 3V CPT Code: 25254 Report Number: [id number] Reason for Exam: HIP PAIN Pain Frontal [...] Joy MD 06/08/221655 TD/TT: 06/08/22 165 Tech: [id number] cc: MARGUERITE; HELENA* Kate Young, PAC; Oracio Douglas PA [address] [place], [phone], [facility] 06/12/2022 14:34:30 Procedures Surgical History Date Name Laterality Status Provider Name and Address Organization Details Recorded Time 2 TeleHealth Visit completed Sophie Weathers MD [address] [facility], [place], [address], [facility] 04/03/2022 14:11:05 2 TeleHealth Visit completed Patricia Amaro [facility] 03/06/2022 08:58:21 Imaging Results None recorded. 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 8430657878 2746108 T84.52XD [id number] HELEN JOHNSON SEM_HOSP ORTHOPEDI CS OUT PT [address] [address] 03/07/2022 11:29:08 03/12/2022 07:42:34 Dehiscence of surgical wound 96969218 T81.30XA 2 weeks status post left hip [...] of total replacement of left hip joint 1868329961 340097 Z96.642 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 Pain of ri ght hip joint 3836006817 47010 M25.551 History of left hip replacement 2279532191 897471 Z96.642 Doing well status post I and D and head liner exchange with wound revision given postoperat parminder wound dehiscence . Most recent lab work reassuring . No issues with her incision. She is off antibiotic s. No reported fevers or chills or increasing pain. [id number] HELEN JOHNSON SEM_HOSP ORTHOPEDI CS OUT PT [address] [place] [address] 06/06/2022 10:23:14 06/07/2022 11:06:46 History of total replacement of right hip joint 0385030456 17105 Z96.641 Two weeks status post right anterior [...] recovery. Will follow-up in 6 weeks via [facility]. Health Concerns Section Related Observation LastModified by Organization Detai ls LastModified Time None Recorded Concern Status LastModified by Organization Details LastModified Time None Recorded Advance Directives Directive None Recorded Payers Insurance Date Sequence Insurance Name Policy Number Policy Gutiérrez Covered Member ID Gutiérrez Member ID Guarantor Name 07/22/2022 1 [place] [employer] Laura Hickman [id number] Laura Hickman 07/22/2022 2 [place] [facility] Laura Hickman [id number] Laura Hickman Notes Date Note Type Note [...] a left hip arthroplasty on 01/08/2022 in [place]. Since the surgery, she has been having [...] gauze with no drainage. Sophie Weathers MD [address] [place] [address], [phone], [facility] 03/06/2022 14:31:51 2 text/html Date of Procedure: [...] postop exam with x-rays. HELEN JOHNSON [address] [place], [address], [facility] 03/07/2022 13:10:01 2 text/html The patient acknowledges [...] rash, pruritus, diarrhea. Sophie Weathers MD [address] [place], [address], [facility] 04/03/2022 14:14:52 2 text/html This is a 61-year-old woman who is presenting today with right hip pain. She is known to Dr. Martinez status post left hip surgical wound I and D and head liner exchange for persistent drainage and wound dehiscence on 02/19/2022, original left total hip surgery on 01/08/22 in [place]. She reports that her left hip is [...] right hip replacement surgery. HELEN ZHU [address] [place], [address], [facility] 05/09/2022 16:41:47 2 text/html Date of Procedure: [...] today for postop exam. HELEN JOHNSON [address] [place], [address], [facility] 06/06/2022 15:14:48 OBGyn Episode No OBEpisode recorded.
--- OUTSIDE RECORDS SUMMARY | 2025-04-06 07:12 | XMS_ITS | Clinical Summary ---
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 Name Role Phone Hosea Douglas Primary Care Provider [phone] Allergies Active Allergy Reactions Criticality Noted Date [...] Pain due to left hip joint prosthesis (CMS/[facility]ER[facility] V 24) 02/07/2023 Primary osteoarthritis of left [...] with Ansley Lobo PVD (peripheral vascular disease) ([facility] V24) 02/24/2013 COPD (chronic obstructive pu lmonary disease) ([facility] V24, [facility] V28) 10/28/2012 Insomnia 10/28/2012 Abdominal pain 07/24/2012 Knee pain 01/30/2010 Patella, chondromalacia 01/30/2010 Low back pain 01/13/2010 Radiculitis, lumbosacral 01/13/2010 Lumbar spondylosis 01/07/2010 Migraine 12/12/2007 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): Had open heart surgery Encounters Date Type Department Care Team Description 03/08/2025 Telephone Adult Medicine [address] [phone] Hosea Douglas PA Fitting for DME 03/03/2025 1:00 PM EDT Office Visit Orthopedic Surgery - [place] [address] [facility] [address] [place] [phone] Kamar Smith DPM PVD (peripheral vascular disease) ([facility] V24) (Primary Dx); Pain in toes of both feet; Arthritis of both feet; Dermatophytosis, nail 02/18/2025 12:45 PM EDT - 02/18/2025 11:59 PM EDT Hospital Encounter [facility] CT Scan [address] [place] [phone] Encounter for screening for malignant neoplasm of respiratory organs; Nicotine dependence, cigarettes, uncomplicated Discharge Disposition: Home or Self Care 02/15/2025 10:00 AM EDT Consult Adult Medicine [address] [phone] Hosea Douglas PA Preoperative cardiovascular examination (Primary Dx); Essential hypertension; Arthritis of left knee; Abnormal level of blood mineral 01/26/2025 Telephone Lung Screening Program [facility] [address] [facility] [address] [place] [phone] Helen Leach [place] Appointment (1st Notification) from [...] PROCEDURE: HISTORICAL TONSILLECTOMY OTHER SURGICAL HISTORY PROCEDURE: NJ LIG/TRNSXJ FLP TUBE ABDL/VAG APPR UNI/BI OTHER SURGICAL HISTORY 08/2014 PROCEDURE: NJ UNLISTED PROCEDURE SPINE; COMMENT: L4- L5 lumbar fusion COLONOSCOPY 04/17/2016 PROCEDURE: HISTORICAL COLONOSCOPY; COMMENT: 10 mm sigmoid colon polyp: Tubulovillous adenoma. OTHER SURGICAL HISTORY 03/2018 PROCEDURE: NJ RMVL TOT DISC ARTHRP ANT 1 INTERSPACE CERVICAL; COMMENT: cer disckectomy C5- C7 OTHER SURGICAL HISTORY 01/08/2022 PROCEDURE: NJ ANESTHESIA OPEN TOTAL HIP ARTHROPLASTY; COMMENT: dr. angel, done in [place] OTHER SURGICAL HISTORY 05/22/2022 Right PROCEDURE: NJ ANESTHESIA OPEN TOTAL HIP ARTHROPLASTY; COMMENT: [facility] [...] s COPD (chronic obstructive pu lmonary disease) ([facility]/HCC V24, [facility] V28) 10/28/2012 DX:COPD (chronic o bstructive pulmonary disease) (HCC) Insomnia 10/28/2012 DX:Insomnia PVD (peripheral vascular dis ease) ([facility] V24) 02/24/2013 DX:PVD (peripheral vascular disease) ([facility]) Major depression 02/24/2013 DX:Major depres jon Borderline abnormal TFTs 02/24/2013 DX:Bord jaime abnormal TFTs Need for hepatitis C screening test 02/24/2013 DX:Need for hepatitis C screening test Historical Medical DX 01/07/2010 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 For example, child day care provider or elderly care for an older adult? [...] PM EDT Office Visit Orthopedic Surgery - [place] [address] [phone] Kamar Smith DPM [address] [address] 06/18/2025 2:30 PM EDT Office Visit Adult Medicine [facility] [address] [place] [address] Hosea Douglas PA [address] [place] [address] Health Maintenance Due Date Last Done Comments Zoster Vaccines (1 of 2) 2011 RSV Immunization Adult Patients (1 - Risk 60-74 years 1-dose series) 2021 HIV Screening 09/08/2022 Medicare Annual Wellness Visit 09/08/2022 COVID-19 Vaccine ( season) 2024 02/21/2022, 04/21/2021, 04/06/2021, Additional history exists Depression Screening 11/25/2024 11/25/2023 Influenza Vaccine (#1) 2025 , 07/02/2022, 09/14/2021, Additional history exists Breast Cancer [...] Vaccine: 50+ Years Completed 12/15/2024, 08/17/2014, 03/23/2014 HIB Vaccines Aged [...] with acute exacerbation (CMS/HCC V24, CMS/HCC V28) HM DEPRESSION SCREENING Routine 11/25/2023 DIAGNOSTIC MAMMOGRAPHY INCLUDING CAD BILATERAL Routine 08/05/2023 2:18 PM EST Mastodynia HM HPV Routine 07/05/2022 HM COLONOSCOPY Routine 02/03/2021 HEPATITIS C SCREENING Routine [...] Signed Date: 02/19/2025 05:47 ET Workstation ID: [id number] Transcribed By: Self Edit Transcribed Date: 02/19/2025 [...] Signed Date: 02/19/2025 05:47 ET Workstation ID: [id number] Transcribed By: Self Edit Transcribed Date: 02/19/2025 05:41 ET Carol Leos MD IMG CT PROCEDURES Final Result * ECG 12 lead Tracing Only (02/15/2025 10:34 AM EDT) Hosea CERVANTES ECG ORDERABLES Final Res ult * Lipid panel with reflex to direct LDL (12/15/2024 1:59 PM EDT) Cholesterol 177 0 - 200 mg/dL LAB CHEMISTRY METHOD 12/15/2024 5:06 PM EDT [facility] Triglycerides 130 0 - 150 mg/dL LAB CHEMISTRY METHOD 12/15/2024 5:06 PM EDT [facility] HDL 56 >=40 mg/dL LAB CHEMISTRY METHOD 12/15/2024 5:06 PM EDT [facility] LDL Calculated 95 0 - 100 mg/dL LAB CHEMISTRY METHOD 12/15/2024 5:06 PM EDT [facility] VLDL Cholesterol Luigi 26 mg/dL LAB CHEMISTRY METHOD 12/15/2024 5:06 PM EDT [facility] Non HDL Chol. (LDL+VLDL) 121 <145 mg/dL LAB CHEMISTRY METHOD 12/15/2024 5:06 PM EDT [facility] Chol/HDL Ratio 3.2 0.0 - 4.4 LAB CHEMISTRY METHOD 12/15/2024 5:06 PM T [facility] Blood Venous blood specimen / Unknown Venipuncture / Unknown 12/15/2024 1:59 PM EDT 12/15/2024 1:59 PM EDT Hosea CERVANTES LAB BLOOD ORDERABLES Tanisha l Result [facility] [address] [place] [address], [place] [phone] * (ABNORMAL) Comprehensive metabolic panel (12/15/2024 1:59 PM EDT) Sodium 136 133 - 145 mmol/L LAB CHEMISTR[facility] Potassium 4.3 3.5 - 5.5 mmol/L LAB CHEMISTRY METHOD 12/15/2024 5:07 PM [facility] Chloride 104 96 - 110 mmol/L LAB CHEMISTRY METHOD 12/15/2024 5:07 PM [facility] CO2 30 21 - 32 mmol/L LAB CHEMISTRY METHOD 12/15/2024 5:07 PM [facility] Anion Gap 2(L) 3 - 11 LAB CHEMISTRY METHOD 12/15/2024 5:07 PM [facility] Glucose 81 70 - 100 mg/dL LAB CHEMISTRY METHOD 12/15/2024 5:07 PM [facility] BUN 12 5 - 25 mg/dL LAB CHEMISTRY METHOD 12/15/2024 5:07 PM [facility] Creatinine 1.04 0.50 - 1.10 mg/dL LAB CHEMISTRY METHOD 12/15/2024 5:07 PM [facility] eGFR 61 >=60 mL/min/1. 73m2 LAB CHEMISTRY METHOD 12/15/2024 5:07 PM [facility] Comment:Calculation based on the Chronic Kidney Disease Epidemiology Collaboration (CKD-EPI) equation refit without adjustment for race. BUN/Creatinine Ratio 11.5 LAB CHEMISTRY METHOD 12/15/2024 5:07 PM [facility] Calcium 9.3 8.5 - 10.5 mg/dL LAB CHEMISTRY METHOD 12/15/2024 5:07 PM [facility] AST (SGOT) 11 10 - 42 unit/L LAB CHEMISTRY METHOD 12/15/2024 5:07 PM EDT [facility] ALT (SGPT) 15 10 - 60 unit/L LAB CHEMISTRY METHOD 12/15/2024 5:07 PM EDT [facility] Alkaline Phosphatase 130(H) 42 - 121 unit/L LAB CHEMISTRY METHOD 12/15/2024 5:07 PM EDT [facility] Total Protein 7.0 6.0 - 8.0 g/dL LAB CHEMISTRY METHOD 12/15/2024 5:07 PM EDT [facility] Albumin 3.8 3.2 - 5.0 g/dL LAB CHEMISTRY METHOD 12/15/2024 5:07 PM EDT [facility] Total Bilirubin 0.4 0.0 - 1.4 mg/dL LAB CHEMISTRY METHOD 12/15/2024 5:07 PM EDT [facility] Blood Venous blood specimen / Unknown Venipuncture / Unknown 12/15/2024 1:59 PM EDT 12/15/2024 1:59 PM EDT Hosea CERVANTES LAB BLOOD ORDERABLES Tanisha l Result [facility] [address] [place] [address], * Depression Screening (11/25/2023) Depression Screening abstracted [...] esult * Cervical Cancer Screening: HPV (07/05/2022) [facility] Cervical Cancer Screening: HPV abstracted, negative Result [facility] Provider HEALTH MAINTENANCE Final Result * Colonoscopy (02/03/2021) [facility] Colonoscopy abstracted, no interpretation Anatomical Region Laterality Modality Other [facility] Provider HEALTH MAINTENANCE Final Result * Hepatitis C Screening (06/05/2013) 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
== END 2025-04-01 07:11 | disposition home or self-care (01) ==
LOC: HO.HOSX 07:10
PROVIDERS: Visit Provider Physician Assistant
DX: T84.84XA Pain due to internal orthopedic prosthetic devices, implants and grafts, initial encounter (principal); Z96.652 Presence of left artificial knee joint
CPT/HCPCS: 73562; 99212

== ENCOUNTER 2025-04-01 13:19 | Outpatient (AMB) | payer MEDICAID, SELFPAY ==
--- OUTSIDE RECORDS SUMMARY | 2025-04-01 13:28 | XMS_ITS | Clinical Summary ---
Author Organization [facility] [address] [place] [address] Address [address] [place] [address] Phone Care Team Providers Care Commodities Clerk Name Role Phone Hosea [place] Primary Care Provider [phone] [phone] Allergies Active Allergy Reactions Criticality Noted Date [...] of Breath or Cough. 04/13/20 24 Active diclofenac (VOLTAREN) 1 % topical gel [...] remove for 12 hours. 30 each 12/16/19 Active multivitamin tablet Take 1 tablet by mouth 1 (one) time each day. 30 each 12/16/19 25 2025 Active fluticasone propionate (FLONASE) [...] day 180 capsule 1 03/11/20 25 Active senna 8.6 mg tablet TAKE 1 TABLET BY MOUTH THREE TIMES WEEKLY 45 tablet 3 03/22/20 25 Active docusate sodium (COLACE) 100 mg capsule TAKE 1 CAPSULE BY MOUTH two (2) times a day 07/15/20 24 2024 Discontinued omeprazole (PriLOSEC) [address] capsule Take 1 capsule (20 mg total) by mouth 1 (one) time each day. 07/02/20 24 2024 Discontinued senna (SENOKOT) 8.6 mg tablet Take 1 Tablet by mouth three times a week. 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 V 24) 02/07/2023 Primary osteoarthritis of [...] with Ansley Lobo PVD (peripheral vascular disease) ([facility] V24) 02/24/2013 COPD (chronic obstructive pu lmonary disease) ([facility] V24, 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 V24) (Primary Dx); Pain in toes of both feet; Arthritis of both feet; Dermatophytosis, nail 02/18/2025 12:45 PM EDT - 02/18/2025 11:59 PM EDT Hospital Encounter [facility] CT Scan [address] [place] [phone] Encounter for screening for malignant neoplasm of respiratory organs; Nicotine dependence, cigarettes, uncomplicated Discharge Disposition: Home or Self Care 02/15/2025 10:00 AM EDT Consult Adult Medicine [address] [phone] Hosea [place] PA Preoperative cardiovascular examination (Primary Dx); Essential hypertension; Arthritis of left knee; Abnormal level of blood mineral 01/26/2025 Telephone Lung Screening Program [facility] 299 [facility] [address] [place] [phone] Helen Leach [place] Appointment (1st Notification) from [...] PROCEDURE: HISTORICAL TONSILLECTOMY OTHER SURGICAL HISTORY PROCEDURE: [place] LIG/TRNSXJ FLP TUBE ABDL/VAG APPR UNI/BI OTHER SURGICAL HISTORY 08/2014 PROCEDURE: MD UNLISTED PROCEDURE SPINE; COMMENT: L4- L5 lumbar fusion COLONOSCOPY 04/17/2016 PROCEDURE: HISTORICAL COLONOSCOPY; COMMENT: 10 mm sigmoid colon polyp: Tubulovillous adenoma. OTHER SURGICAL HISTORY 03/2018 PROCEDURE: MD RMVL TOT DISC ARTHRP ANT 1 INTERSPACE CERVICAL; COMMENT: cer disckectomy C5- C7 OTHER SURGICAL HISTORY 01/08/2022 PROCEDURE: MD ANESTHESIA OPEN TOTAL HIP ARTHROPLASTY; COMMENT: dr. angel, done in [place] OTHER SURGICAL HISTORY 05/22/2022 Right PROCEDURE: MD ANESTHESIA OPEN TOTAL HIP ARTHROPLASTY; [facility]: [facility] [...] s COPD (chronic obstructive pu lmonary disease) ([facility]/HCC V24, [facility] V28) 10/28/2012 DX:COPD (chronic o bstructive pulmonary disease) (HCC) Insomnia 10/28/2012 DX:Insomnia PVD (peripheral vascular dis ease) ([facility] V24) 02/24/2013 DX:PVD (peripheral vascular disease) (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 V24, [facility] V28) 08/03/2014 DX:Atrial flutter (HCC) History [...] Date Smoking Tobacco: Every Day Cigarettes 0.5 51.9 Started: 1972 Smokeless Tobacco: Never Tobacco Cessation:Ready [...] for your loved ones. For example, director maternal child or elderly care for an older [...] PM EDT Office Visit Orthopedic Surgery - [place] [address] [phone] Kamar Smith DPM [address] [address] 06/18/2025 2:30 PM EDT Office Visit Adult Medicine [facility] [address] [place] [address] Hosea [place] PA [address] [place] [address] Health Maintenance Due Date Last Done Comments [...] Signed Date: 02/19/2025 05:47 ET Workstation ID: [id number] Transcribed By: Self Edit Transcribed Date: 02/19/2025 [...] Signed Date: 02/19/2025 05:47 ET Workstation ID: [id number] Transcribed By: Self Edit Transcribed Date: 02/19/2025 05:41 ET us Carol Leos MD IMG CT PROCEDURES Final Result * ECG 12 lead Tracing Only (02/15/2025 10:34 AM EDT) us Hosea CERVANTES ECG ORDERABLES Final Res ult * Lipid panel with reflex to direct LDL (12/15/2024 1:59 PM EDT) Cholesterol 177 0 - 200 mg/dL LAB CHEMISTRY METHOD 12/15[facility]2024 5:[facility] Triglycerides 130 0 - 150 mg/dL LAB CHEMISTRY METHOD 12/15/2024 5:06 [facility] HDL 56 >=40 mg/dL LAB CHEMISTRY METHOD 12/15/2024 5:06 PM T [facility] LDL Calculated 95 0 - 100 mg/dL LAB CHEMISTRY METHOD 12/15/2024 5:06 PM [facility] VLDL Cholesterol Luigi 26 mg/dL LAB CHEMISTRY METHOD 12/15/2024 5:06 PM EDT [facility] Non HDL Chol. (LDL+VLDL) 121 <145 mg/dL LAB CHEMISTRY METHOD 12/15/2024 5:06 PM T [facility] Chol/HDL Ratio 3.2 0.0 - 4.4 LAB CHEMISTRY METHOD 12/15/2024 5:06 PM [facility] Blood Venous blood specimen / Unknown Venipuncture / Unknown 12/15/2024 1:59 PM EDT 12/15/2024 1:59 PM EDT us Hosea CERVANTES LAB BLOOD ORDERABLES Tanisha rosales Result [facility] [address] [place] [address], [place] [phone] * (ABNORMAL) Comprehensive metabolic panel (12/15/2024 1:59 PM EDT) Sodium 136 133 - 145 mmol/L LAB CHEMISTRY METHOD 12/15/2024 5:07 PM [facility] Potassium 4.3 3.5 - 5.5 mmol/L LAB CHEMISTRY METHOD 12/15/2024 5:07 PM [facility] Chloride 104 96 - 110 mmol/L LAB CHEMISTRY METHOD 12/15/2024 5:07 PM [facility] CO2 30 21 - 32 mmol/L LAB CHEMISTRY METHOD 12/15/2024 5:07 PM [facility] Anion Gap 2(L) 3 - 11 LAB CHEMISTRY METHOD 12/15/2024 5:07 PM [facility] Glucose 81 70 - 100 mg/dL LAB CHEMISTRY METHOD 12/15/2024 5:07 PM [facility] BUN 12 5 - 25 mg/dL LAB CHEMISTRY METHOD 12/15/2024 5:07 PM [facility] Creatinine 1.04 0.50 - 1.10 mg/dL LAB CHEMISTRY METHOD 12/15/2024 5:07 PM [facility] eGFR 61 >=60 mL/min/1. 73m2 LAB CHEMISTRY METHOD 12/15/2024 5:07 PM [facility] Comment:Calculation based on the Chronic Kidney Disease Epidemiology Collaboration (CKD-EPI) equation refit without adjustment for race. BUN/Creatinine Ratio 11.5 LAB CHEMISTRY METHOD 12/15/2024 5:07 PM [facility] Calcium 9.3 8.5 - 10.5 mg/dL LAB CHEMISTRY METHOD 12/15/2024 5:07 PM EDT [facility] AST (SGOT) 11 10 - 42 unit/L LAB CHEMISTRY METHOD 12/15/2024 5:07 PM EDT [facility] ALT (SGPT) 15 10 - 60 unit/L LAB CHEMISTRY METHOD 12/15/2024 5:07 PM EDT [facility] Alkaline Phosphatase 130(H) 42 - 121 unit/L LAB CHEMISTRY METHOD 12/15/2024 5:07 PM EDT [facility] Total Protein 7.0 6.0 - 8.0 g/dL LAB CHEMISTRY METHOD 12/15/2024 5:[facility] Albumin 3.8 3.2 - 5.0 g/dL LAB CHEMISTRY METHOD 12/15/2024 5:07 PM EDT [facility] Total Bilirubin 0.4 0.0 - 1.4 mg/dL LAB CHEMISTRY METHOD 12/15/2024 5:07 PM EDT [facility] Blood Venous blood specimen / Unknown Venipuncture / Unknown 12/15/2024 1:59 PM EDT 12/15/2024 1:59 PM EDT Hosea CERVANTES LAB BLOOD ORDERABLES Tanisha l Result [facility] [address] [place] [address], * Depression Screening (11/25/2023) Pathologist [facility] Depression Screening abstracted Historical Provider HEALTH MAINTENANCE [...] * Cervical Cancer Screening: HPV (07/05/2022) Pathologist [facility] Cervical Cancer Screening: HPV abstracted, negative Result [facility] Provider HEALTH MAINTENANCE Final Result * Colonoscopy (02/03/2021) Pathologist [facility] Colonoscopy abstracted, no interpretation Anatomical Region Laterality Modality Other [facility] Provider HEALTH MAINTENANCE Final Result * Hepatitis C Screening (06/05/2013) Pathologist [facility] Hepatitis C Screening abstracted Result [facility] Provider HEALTH MAINTENANCE Final Result from Last 3 Months or Most Recently Relevant to Health Maintenance Insurance [place] Care Teams Commodities Clerk Relationship Specialty Start Date End Date Hosea [place] PA [address] [place] [address] PCP - General Internal Medicine 02/01/21
--- OUTSIDE RECORDS SUMMARY | 2025-04-01 13:28 | XMS_ITS | Data Portability ---
Author Organization [facility] UROLOGY Address [address] [facility] [address] [place] [address] Care Team Providers Care Draw Press Operator Name Role Phone NONE, LISTED Primary Care Provider ORACIO Croft Primary Care Provider Assessment Encounter Date Assessment Date Assessment LastModified by Organization Details LastModified Time 03/06/2022 03/06/2022 Instructions, orders, and treatment plan, were discussed and reviewed with the patient during the visit. Follow up appointment tickler created 40 minutes visit time. telephonic communication counseling and coordinating care. 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 Recs: - continue with cefazolin at 2 g IV q.8 hours - will send an order to the [facility] to draw labs including BMP, CBC, ESR and CRP and send the results to ID clinic at - will await the patient's appointment with ortho tomorrow to assess the status of the wound as this encounter is conducted via telehealth. - if the wound is healing nicely and the labs look good, we may switch to oral ATB as she has done so far 2 weeks of iv ATB since the surgery. Not available 03/06/2022 14:31:17 04/03/2022 04/03/2022 Instructions, orders, and treatment plan, were discussed and reviewed with the patient during the visit. Follow up appointment as needed 30 minutes visit time. telephonic communication counseling and coordinating care. 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 The OR cultures were negative (to note that the patient had been on a prolonged course of cephalexin up until 2-3 days prior to the recent surgery). Recs: - we could have stopped cefazolin today as she has just completed a 6wk course, however she reports having missed several doses and therefore has more cefazolin doses at home. So I asked her to finish what she has left until Friday 04/06 - will send an order to the [facility] to pull her picc line on 04/06. No need for oral antibiotics as her OR cultures were neg. Follow up as needed. Not available 04/03/2022 14:14:10 Plan of Treatment Reminders Order Date Submit Date Provider Last Modified By Organization Details Last Modified Time Details Appointments None recorded. Lab CBC w/ auto diff 2021 022 [email or web address], [address] [place] [address], [id number], 10:47:10 HbA1c (hemoglobi n A1c), blood 2021 022 [email or web address], [address] [place] [address], [id number], 2 10:47:10 methicilli n resistant staphyloco ccus aureus, culture, nasal 2021 022 [email or web address], [address] [place] [address], [address], 2 10:47:10 type + screen, blood 2021 022 [email or web address], [address] [place] [address], [address], 2 10:47:10 CMP, serum or plasma 2021 022 JOSÉ MIGUEL [facility], [address] [place] [address], [address], 14:03:58 ESR (erythrocy te sedimentat ion rate), blood 2021 [facility], [address] [place] [address], [id number], 13:29:45 C-reactive protein, quantitati ve, serum or plasma 2021 [email or web address], [address] [place] [address], [address], 08:04:31 CBC w/ auto diff 2021 [facility], [address] [place] [address], [address], 12:48:54 CMP, serum or plasma 2021 [facility], [address] [place] [address], [address], 13:26:12 ESR (erythrocy te sedimentat ion rate), blood 2021 [facility], [address] [place] [address], [address], 12:58:48 C-reactive protein, quantitati ve, serum or [email or web address], [address] [place] [address], [address], 07:18:26 Referral physical therapist referral 2021 [email or web address] Not available 11:50:50 Procedures None recorded. Surgeries total hip arthroplas ty, anterior approach (SURG) 2021 [email or web address] Not available 08:18:[address], hip, w/o contrast 2021 JOSÉ MIGUEL Not available 08/16/202 2 17:05:42 Medication Orders oxycodone 10 mg tablet 2021 022 JOSÉ MIGUEL [place], [place] - [id number], [address] [place], [address], 11:31:26 celecoxib 200 mg capsule 2021 022 [email or web address] [place], [place] - [id number], [address] [place], [address], 2 12:52:05 Patient TargetsNo targets recorded. Patient InstructionsNo instructions recorded. 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 ANNETTE Referring Physician: Kate Young, Orthopedic Surgery, Encounter Date: 06/06/2022 Results Created Date Observation Date Name Description Value Unit Range Abnormal Flag Note LastModifiedBy Organization Detail LastModifiedTime 02/16/20 22 02/15/2022 COMPL ETE BLOOD COUNT AUTO DIFF white blood count 9.9 X10_3 /uL 4.5-11 .0 normal Not Available [place] [address] [facility] [address], [place], [address] 02/15/2022 11:45:46 02/16/20 22 02/15/2022 COMPL ETE BLOOD COUNT AUTO DIFF red blood count 4.55 X10_6 /uL 3.70-5 .00 normal Not Available [facility] [address] [facility] [address], [place], [address] 02/15/2022 11:45:46 02/16/2002/15/2022 COMPL ETE BLOOD COUNT AUTO DIFF hemoglobin 12.5 g/dL 11.0-1 6.0 normal Not Available [facility] [address] [facility] [address], [place], [address] 02/15/2022 11:45:46 02/16/2002/15/2022 COMPL ETE BLOOD COUNT AUTO DIFF hematocrit 41.1 % 33.5-4 5.0 normal Not Available [facility] [address] [facility] [address], [place], [address] 02/15/2022 11:45:46 02/16/20 22 02/15/2022 COMPL ETE BLOOD COUNT AUTO DIFF mean corpuscular volume 90.3 fL 80.0-1 00.0 normal Not Available [facility] [address] [facility] [address], [place], [address] 02/15/2022 11:45:46 02/16/20 22 02/15/2022 COMPL ETE BLOOD COUNT AUTO DIFF mean corpuscular hemoglobin 27.5 pg 27.0-3 4.0 normal Not Available [facility] [address] [address], [place], [address] 02/15/2022 11:45:46 02/16/20 22 02/15/2022 COMPL ETE BLOOD COUNT AUTO DIFF mean corpuscular HGB conc 30.4 g/dL 31.0-3 6.0 low Not Available [facility] [address] [address], [place], [address] 02/15/2022 11:45:46 02/16/20 22 02/15/2022 COMPL ETE BLOOD COUNT AUTO DIFF red cell distribution width 15.0 % 11.5-1 5.0 normal Not Available [facility] [address] [address], [place], [address] 02/15/2022 11:45:46 02/16/20 22 02/15/2022 COMPL ETE BLOOD COUNT AUTO DIFF platelet count 323 X10_3 /uL 150-40 0 normal Not Available [facility] [address] [address], [place], [address] 02/15/2022 11:45:46 02/16/20 22 02/15/2022 COMPL ETE BLOOD COUNT AUTO DIFF immature granulocytes % (auto) 0.2 % Not Available [facility] [address] [facility] [address], [place], [address] 02/15/2022 11:45:46 02/16/20 22 02/15/2022 COMPL ETE BLOOD COUNT AUTO DIFF neutrophils % (auto) 42.5 % Not Available [facility] [address] [facility] [address], [place], [address] 02/15/2022 11:45:46 02/16/20 22 02/15/2022 COMPL ETE BLOOD COUNT AUTO DIFF lymphocytes % (auto) 43.3 % Not Available [facility] [address] [facility] [address], [place], [address] 02/15/2022 11:45:46 02/16/20 22 02/15/2022 COMPL ETE BLOOD COUNT AUTO DIFF monocytes % (auto) 9.8 % Not Available [facility] [address] [address], [place], [address] 02/15/2022 11:45:46 02/16/20 22 02/15/2022 COMPL ETE BLOOD COUNT AUTO DIFF eosinophils % (auto) 3.7 % Not Available [facility] [address] [address], [place], [address] 02/15/2022 11:45:46 02/16/20 22 02/15/2022 COMPL ETE BLOOD COUNT AUTO DIFF basophils % (auto) 0.5 % Not Available [address] [address], [place], [address] 02/15/2022 11:45:46 02/16/20 22 02/15/2022 COMPL ETE BLOOD COUNT AUTO DIFF immature granulocytes # (auto) 0.02 X10_3 /uL 0.00-0 .09 normal Not Available [address] [address], [place], [address] 02/15/2022 11:45:46 02/16/20 22 02/15/2022 COMPL ETE BLOOD COUNT AUTO DIFF neutrophils # (auto) 4.2 X10_3 /uL 1.5-7. 8 normal Not Available [address] [address], [place], [address] 02/15/2022 11:45:46 02/16/20 22 02/15/2022 COMPL ETE BLOOD COUNT AUTO DIFF lymphocytes # (auto) 4.3 X10_3 /uL 1.0-4. 8 normal Not Available [facility] [address] [facility] [address], [place], [address] 02/15/2022 11:45:46 02/16/20 22 02/15/2022 COMPL ETE BLOOD COUNT AUTO DIFF monocytes # (auto) 1.0 X10_3 /uL 0.0-0. 8 high Not Available [facility] [address] [address], [place], [address] 02/15/2022 11:45:46 02/16/20 22 02/15/2022 COMPL ETE BLOOD COUNT AUTO DIFF eosinophils # (auto) 0.4 X10_3 /uL 0.0-0. 5 normal Not Available [facility] [address] [address], [place], [address] 02/15/2022 11:45:46 02/16/20 22 02/15/2022 COMPL ETE BLOOD COUNT AUTO DIFF basophils # (auto) 0.1 X10_3 /uL 0.0-0. 2 normal Not Available [facility] [address] [address], [place], [address] 02/15/2022 11:45:46 02/16/20 22 02/15/2022 COMPL ETE BLOOD COUNT AUTO DIFF nucleated RBC% 0.0 /100_ WBC 0.0-0. 0 normal Not Available [facility] [address] [address], [place], [address] 02/15/2022 11:45:46 02/16/20 22 02/15/2022 ERYTH ROCYT E SEDIM ENTAT ION RATE erythrocyte sedimentatio n rate 34 mm/HR 0-30 high Not Available [facility] [address] [address], [place], [address] 02/15/2022 11:59:22 02/16/20 22 02/15/2022 COMPR EHENS PARMINDER METAB OLIC PANEL sodium 138 mmol/ L 137-14 6 normal Not Available [facility] [address] [address], [place], [address] 02/15/2022 12:02:00 02/16/20 22 02/15/2022 COMPR EHENS PARMINDER METAB OLIC PANEL potassium,K 4.0 mmol/ L 3.5-5. 3 normal Not Available [facility] [address] [address], [place], [address] 02/15/2022 12:02:00 02/16/20 22 02/15/2022 COMPR EHENS PARMINDER METAB OLIC PANEL chloride 101 mmol/ L 98-107 normal Not Available [facility] [address] [address], [place], [address] 02/15/2022 12:02:00 02/16/20 22 02/15/2022 COMPR EHENS PARMINDER METAB OLIC PANEL carbon dioxide 28 mmol/ L 23-32 normal Not Available [facility] [address], [place], [address] 02/15/2022 12:02:00 02/16/20 22 02/15/2022 COMPR EHENS PARMINDER METAB OLIC PANEL anion gap 9 mmol/ L 5-15 normal Not Available [facility] [address], [place], [address] 02/15/2022 12:02:00 02/16/20 22 02/15/2022 COMPR EHENS PARMINDER METAB OLIC PANEL blood urea nitrogen 4 mg/dL 5-25 low Not Available [facility] [address], [place], [address] 02/15/2022 12:02:00 02/16/20 22 02/15/2022 COMPR EHENS PARMINDER METAB OLIC PANEL creatinine 0.9 mg/dL 0.5-1. 1 normal Not Available [facility] [address], [place], [address] 02/15/2022 12:02:00 02/16/20 22 02/15/2022 COMPR EHENS PARMINDER METAB OLIC PANEL estimated GFR ( nikhil 81 >=60 mL/min / Not Available [facility] [address], [place], [address] 02/15/2022 12:02:00 02/16/20 22 02/15/2022 COMPR EHENS PARMINDER METAB OLIC PANEL estimated GFR (non afr nikhil 69 >=60 mL/min / Not Available [facility] [address], [place], [address] 02/15/2022 12:02:00 02/16/20 22 02/15/2022 COMPR EHENS PARMINDER METAB OLIC PANEL BUN/creatini ne ratio 4.4 10.0-2 0.0 low Not Available [facility] [address], [place], [address] 02/15/2022 12:02:00 02/16/20 22 02/15/2022 COMPR EHENS PARMINDER METAB OLIC PANEL glucose 91 mg/dL <100 -fasti ng normal Not Available [facility] [address], [place], [address] 02/15/2022 12:02:00 05/19/02/15/2022 COMPR EHENS PARMINDER METAB OLIC PANEL calcium 9.0 mg/dL 8.6-10 .3 normal Not Available [facility] [address] [address], [place], [address] 02/15/2022 12:02:00 02/16/20 22 02/15/2022 COMPR EHENS PARMINDER METAB OLIC PANEL bilirubin,to gab < 0.2 mg/dL <1.2 Not Available [facility] [address] [place] [address], [place], [address] 02/15/2022 12:02:00 02/16/20 22 02/15/2022 COMPR EHENS PARMINDER METAB OLIC PANEL aspartate amino transferase 17 U/L 15-41 normal Not Available [facility] [address] [place] [address], [place], [address] 02/15/2022 12:02:00 02/16/20 22 02/15/2022 COMPR EHENS PARMINDER METAB OLIC PANEL alanine aminotransfe rase 12 U/L 14-54 low Not Available [facility] [address] [address], [place], [address] 02/15/2022 12:02:00 02/16/20 22 02/15/2022 COMPR EHENS PARMINDER METAB OLIC PANEL total protein 7.2 g/dL 6.4-8. 3 normal Not Available [facility] [address] [address], [place], [address] 02/15/2022 12:02:00 02/16/20 22 02/15/2022 COMPR EHENS PARMINDER METAB OLIC PANEL albumin level 3.9 g/dL 4.0-5. 0 low Not Available [facility] [address] [facility] [address], [place], [address] 02/15/2022 12:02:00 02/16/20 22 02/15/2022 COMPR EHENS PARMINDER METAB OLIC PANEL albumin/glob ulin ratio 1.2 1.0-2. 6 normal Not Available [facility] [address] [facility] [address], [place], [address] 02/15/2022 12:02:00 02/16/20 22 02/15/2022 COMPR EHENS PARMINDER METAB OLIC PANEL alkaline phosphatase 202 U/L 35-104 high Not Available [facility] [address] [facility] [address], [place], [address] 02/15/2022 12:02:00 02/16/20 22 02/15/2022 C-DILIA CTIVE PROTE IN C-reactive protein 1.59 mg/dL <0.50 high Not Available [facility] [address] [facility] [address], [place], [address] 02/15/2022 12:02:01 02/20/20 22 02/19/2022 SURGI SOFY PATHO LOGY results Run: 02/22 1047 Speci men Inqui ry ----- ----- ----- ----- ----- ----- ----- ----- ----- ----- ----- ----- ----- ----- ----- ---- Name: ZEYAD MANCILLA PE NNY M Age/S ex: 61/F Locat ion: M7.EM Acct: [id number] Unit: [id number] Statu s: ADM IN Room/ Bed: EM772 0-P Re02/19 Disch : Att Dr: Amber cadet MD ----- ----- ----- ----- ----- ----- ----- ----- ----- ----- ----- ----- ----- ----- ----- ---- Final Diagn osis A. LEFT HIP TISSU E 1. Small (1 mm) area of low-g rade acute infla mmati on Less than 6 PMNs per high- power field B. LEFT HIP TISSU E 2. React parminder thornton, No acute infla mmati on is ident ified C. LEFT HIP TISSU E 3. React parminder thornton, no acute infla mmati on is ident ified Tissu es A. Soft Tissu e, Other than tumor /mass /lipo ma/de bride - LEFT HIP TISSU E # 1 B. Soft Tissu e, Other than tumor /mass /lipo ma/de bride - LEFT HIP TISSU E # 2 C. Soft Tissu e, Other than tumor /mass /lipo ma/de bride - LEFT HIP TISSU E # 3 Froze n Secti on A FS 1: Left hip tissu e #1: 1-2 PMN/H PF B FS 1: Left hip tissu e #2: No acute infla mmati on seen. C FS: Left hip tissu e #3: Less than 5 PMN/H PF Three block /3 slide s Josesito felder M.D. Verba l repor t given to: Amber cadet M.D. Gross Descr iptio n The speci men is recei maurice fresh in 3 parts for intra opera tive froze n secti on con sulta tion each label ed the patie nt's name date of . A. Label ed ?left hip tissu e #1,? is a fragm ent of fibro us harkins soft tissu e, 1.5 x 1.5 x 1.0 cm. A repre senta tive secti on is submi tted for froze n secti on. The speci men is entir maxwell submi tted as follo ws. A FS 1: Froze n secti on remna nt A2: Remai ирина speci men entir maxwell submi tted. B. Label ed ?left hip tissu e #2,? is a fragm ent of harkins fibro us soft tissu e, 1.5 x 1.5 x 0.9 cm. A repre senta tive secti on is submi tted for froze n secti on. The speci men is entir maxwell Run: 02/22 1047 Speci men Inqui ry Gross Descr iptio n (Cont inued ) submi tted as follo ws. B FS 1: Froze n secti on remna nt B2: Remai ирина speci men entir maxwell submi tted C. Label ed ?left hip tissu e #3,? is a fragm ent of fibro us harkins soft tissu e, 2.0 x 2.0 x 0.6 cm. A repre senta tive secti on is taken for froze n secti on. The speci men is ent irely submi tted as follo ws. C FS 1: Froze n secti on remna nt C2: Remai ирина speci men entir maxwell submi tted RG, PA Clini sofy Histo ry Infec koko left hip s/p LTHR Patho logy Proce dures CPT Proce dures :Lawson toxyl in + Eosin Stain /6 Froze n Sect[place], [place] 79308 /3 33850 Level 4 - Gross and Micro scopi c/3 Kala d (sign ature on file) _ Ean andersen MD 02/22 1047 ----- ----- ----- ----- ----- ----- ----- ----- ----- ----- ----- ----- ----- ----- ----- ---- END OF REPOR T Not Available [facility] [address] [facility] [address], [place], [address] 02/22/2022 10:48:07 03/07/20 22 03/07/2022 COMPL ETE BLOOD COUNT AUTO DIFF white blood count 10.2 X10_3 /uL 4.5-11 .0 normal Not Available [facility] [address], [place], [address] 03/07/2022 12:48:54 03/07/20 22 03/07/2022 COMPL ETE BLOOD COUNT AUTO DIFF red blood count 4.42 X10_6 /uL 3.70-5 .00 normal Not Available [facility] [address], [place], [address] 03/07/2022 12:48:54 03/07/20 22 03/07/2022 COMPL ETE BLOOD COUNT AUTO DIFF hemoglobin 12.0 g/dL 11.0-1 6.0 normal Not Available [facility] [address], [place], [address] 03/07/2022 12:48:54 03/07/20 22 03/07/2022 COMPL ETE BLOOD COUNT AUTO DIFF hematocrit 39.0 % 33.5-4 5.0 normal Not Available [facility] [address] [address], [place], [address] 03/07/2022 12:48:54 03/07/20 22 03/07/2022 COMPL ETE BLOOD COUNT AUTO DIFF mean corpuscular volume 88.2 fL 80.0-1 00.0 normal Not Available [address] [address], [place], [address] 03/07/2022 12:48:54 03/07/20 22 03/07/2022 COMPL ETE BLOOD COUNT AUTO DIFF mean corpuscular hemoglobin 27.1 pg 27.0-3 4.0 normal Not Available [address] [address], [place], [address] 03/07/2022 12:48:54 03/07/20 22 03/07/2022 COMPL ETE BLOOD COUNT AUTO DIFF mean corpuscular HGB conc 30.8 g/dL 31.0-3 6.0 low Not Available [address] [address], [place], [address] 03/07/2022 12:48:54 03/07/20 22 03/07/2022 COMPL ETE BLOOD COUNT AUTO DIFF red cell distribution width 14.3 % 11.5-1 5.0 normal Not Available [address] [address], [place], [address] 03/07/2022 12:48:54 03/07/20 22 03/07/2022 COMPL ETE BLOOD COUNT AUTO DIFF platelet count 371 X10_3 /uL 150-40 0 normal Not Available [facility] [address] [address], [place], [address] 03/07/2022 12:48:54 03/07/20 22 03/07/2022 COMPL ETE BLOOD COUNT AUTO DIFF immature granulocytes % (auto) 0.2 % Not Available [address] [address], [place], [address] 03/07/2022 12:48:54 03/07/20 22 03/07/2022 COMPL ETE BLOOD COUNT AUTO DIFF neutrophils % (auto) 42.1 % Not Available [address] [address], [place], [address] 03/07/2022 12:48:54 03/07/20 22 03/07/2022 COMPL ETE BLOOD COUNT AUTO DIFF lymphocytes % (auto) 43.8 % Not Available [facility] [address] [address], [place], [address] 03/07/2022 12:48:54 03/07/20 22 03/07/2022 COMPL ETE BLOOD COUNT AUTO DIFF monocytes % (auto) 8.0 % Not Available [address] [address], [place], [address] 03/07/2022 12:48:54 03/07/20 22 03/07/2022 COMPL ETE BLOOD COUNT AUTO DIFF eosinophils % (auto) 5.0 % Not Available [address] [address], [place], [address] 03/07/2022 12:48:54 03/07/20 22 03/07/2022 COMPL ETE BLOOD COUNT AUTO DIFF basophils % (auto) 0.9 % Not Available [address] [address], [place], [address] 03/07/2022 12:48:54 03/07/20 22 03/07/2022 COMPL ETE BLOOD COUNT AUTO DIFF immature granulocytes # (auto) 0.02 X10_3 /uL 0.00-0 .09 normal Not Available [facility] [address] [address], [place], [address] 03/07/2022 12:48:54 03/07/20 22 03/07/2022 COMPL ETE BLOOD COUNT AUTO DIFF neutrophils # (auto) 4.3 X10_3 /uL 1.5-7. 8 normal Not Available [facility] [address] [address], [place], [address] 03/07/2022 12:48:54 03/07/20 22 03/07/2022 COMPL ETE BLOOD COUNT AUTO DIFF lymphocytes # (auto) 4.5 X10_3 /uL 1.0-4. 8 normal Not Available [facility] [address] [address], [place], [address] 03/07/2022 12:48:54 03/07/20 22 03/07/2022 COMPL ETE BLOOD COUNT AUTO DIFF monocytes # (auto) 0.8 X10_3 /uL 0.0-0. 8 normal Not Available [address] [address], [place], [address] 03/07/2022 12:48:54 03/07/20 22 03/07/2022 COMPL ETE BLOOD COUNT AUTO DIFF eosinophils # (auto) 0.5 X10_3 /uL 0.0-0. 5 normal Not Available [address] [address], [place], [address] 03/07/2022 12:48:54 03/07/20 22 03/07/2022 COMPL ETE BLOOD COUNT AUTO DIFF basophils # (auto) 0.1 X10_3 /uL 0.0-0. 2 normal Not Available [address] [address], [place], [address] 03/07/2022 12:48:54 03/07/20 22 03/07/2022 COMPL ETE BLOOD COUNT AUTO DIFF nucleated RBC% 0.0 /100_ WBC 0.0-0. 0 normal Not Available [address] [address], [place], [address] 03/07/2022 12:48:54 03/07/20 22 03/07/2022 ERYTH ROCYT E SEDIM ENTAT ION RATE erythrocyte sedimentatio n rate 71 mm/HR 0-30 high Not Available [address] [address], [place], [address] 03/07/2022 12:58:48 03/07/20 22 03/07/2022 COMPR EHENS PARMINDER METAB OLIC PANEL sodium 137 mmol/ L 137-14 6 normal Not Available [address] [address], [place], [address] 03/07/2022 13:26:12 03/07/20 22 03/07/2022 COMPR EHENS PARMINDER METAB OLIC PANEL potassium,K 4.0 mmol/ L 3.5-5. 3 normal Not Available [address] [address], [place], [address] 03/07/2022 13:26:12 03/07/20 22 03/07/2022 COMPR EHENS PARMINDER METAB OLIC PANEL chloride 100 mmol/ L 98-107 normal Not Available [address] [address], [place], [address] 03/07/2022 13:26:12 03/07/20 22 03/07/2022 COMPR EHENS PARMINDER METAB OLIC PANEL carbon dioxide 27 mmol/ L 23-32 normal Not Available [facility] [address] [facility] [address], [place], [address] 03/07/2022 13:26:12 03/07/20 22 03/07/2022 COMPR EHENS PARMINDER METAB OLIC PANEL anion gap 10 mmol/ L 5-15 normal Not Available [facility] [address] [facility] [address], [place], [address] 03/07/2022 13:26:12 03/07/20 22 03/07/2022 COMPR EHENS PARMINDER METAB OLIC PANEL blood urea nitrogen 6 mg/dL 5-25 normal Not Available [facility] [address] [facility] [address], [place], [address] 03/07/2022 13:26:12 03/07/20 22 03/07/2022 COMPR EHENS PARMINDER METAB OLIC PANEL creatinine 0.9 mg/dL 0.5-1. 1 normal Not Available [facility] [address] [facility] [address], [place], [address] 03/07/2022 13:26:12 03/07/20 22 03/07/2022 COMPR EHENS PARMINDER METAB OLIC PANEL estimated GFR ( nikhil 81 >=60 mL/min / Not Available [facility] [address] [facility] [address], [place], [address] 03/07/2022 13:26:12 03/07/20 22 03/07/2022 COMPR EHENS PARMINDER METAB OLIC PANEL estimated GFR (non afr nikhil 69 >=60 mL/min / Not Available [facility] [address] [facility] [address], [place], [place], [address] 03/07/2022 13:26:12 03/07/20 22 03/07/2022 COMPR EHENS PARMINEDR METAB OLIC PANEL BUN/creatini ne ratio 6.7 10.0-2 0.0 low Not Available [facility] [address] [facility] [address], [place], [address] 03/07/2022 13:26:12 03/07/20 22 03/07/2022 COMPR EHENS PARMINDER METAB OLIC PANEL glucose 95 mg/dL <100 -fasti ng normal Not Available [facility] [address] [facility] [address], [place], [address] 03/07/2022 13:26:12 03/07/20 22 03/07/2022 COMPR EHENS PARMINDER METAB OLIC PANEL calcium 9.2 mg/dL 8.6-10 .3 normal Not Available [facility] [address] [address], [place], [address] 03/07/2022 13:26:12 03/07/20 22 03/07/2022 COMPR EHENS PARMINDER METAB OLIC PANEL bilirubin,to gab < 0.2 mg/dL <1.2 Not Available [facility] [address] [address], [place], [address] 03/07/2022 13:26:12 03/07/20 22 03/07/2022 COMPR EHENS PARMINDER METAB OLIC PANEL aspartate amino transferase 16 U/L 15-41 normal Not Available [facility] [address] [address], [place], [address] 03/07/2022 13:26:12 03/07/20 22 03/07/2022 COMPR EHENS PARMINDER METAB OLIC PANEL alanine aminotransfe rase < 5 U/L 14-54 low Not Available [facility] [address] [address], [place], [address] 03/07/2022 13:26:12 03/07/20 22 03/07/2022 COMPR EHENS PARMINDER METAB OLIC PANEL total protein 7.3 g/dL 6.4-8. 3 normal Not Available [facility] [address] [address], [place], [address] 03/07/2022 13:26:12 03/07/20 22 03/07/2022 COMPR EHENS PARMINDER METAB OLIC PANEL albumin level 4.0 g/dL 4.0-5. 0 normal Not Available [facility] [address] [address], [place], [address] 03/07/2022 13:26:12 03/07/20 22 03/07/2022 COMPR EHENS PARMINDER METAB OLIC PANEL albumin/glob ulin ratio 1.2 1.0-2. 6 normal Not Available [facility] [address] [facility] [address], [place], [address] 03/07/2022 13:26:12 03/07/20 22 03/07/2022 COMPR EHENS PARMINDER METAB OLIC PANEL alkaline phosphatase 182 U/L 35-104 high Not Available [facility] [address] [facility] [address], [place], [address] 03/07/2022 13:26:12 03/07/20 22 03/07/2022 C-DILIA CTIVE PROTE IN C-reactive protein 1.55 mg/dL <0.50 high Not Available [facility] [address] [facility] [address], [place], [address] 03/07/2022 13:26:13 05/14/20 22 05/14/2022 TYPE AND PETER Lorenzo BBCarina report Run: 05/14 1319 Speci men Inqui ry ----- ----- ----- ----- ----- ----- ----- ----- ----- ----- ----- ----- ----- ----- ----- ---- Name: FIONA ROWLEY M Age/S ex: 61/F Locat ion: PAT.Dewayne Caceres Acct: [id number] Unit: [id number] Statu s: PRE REF Room/ Bed: Re05/14 Disch : Att Dr: Amber cadet MD ----- ----- ----- ----- ----- ----- ----- ----- ----- ----- ----- ----- ----- ----- ----- ---- Blood Type CELI WILLARD Ab Peter lorenzo (Gel) CELI WILLARD ----- ----- ----- ----- ----- ----- ----- ----- ----- ----- ----- ----- ----- ----- ----- ---- END OF REPOR T Not Available [facility] [address] [facility] [address], [place], [address] 05/14/2022 13:19:42 05/14/2005/14/2022 ANNE Goodman ABO/R H TYPE [facility] report Run: 05/14 1319 Speci men Inqui ry ----- ----- ----- ----- ----- ----- ----- ----- ----- ----- ----- ----- ----- ----- ----- ---- Name: ZEYAD FIONA MANCILLA Age/S ex: 61/F Locat ion: PAT.E M Acct: [id number] Unit: [id number] Statu s: PRE REF Room/ Bed: Re05/14 Disch : Att Dr: Amber cadet MD ----- ----- ----- ----- ----- ----- ----- ----- ----- ----- ----- ----- ----- ----- ----- ---- SATURNINO SHANEED TO BE DRAWN ON DOS ----- ----- ----- ----- ----- ----- ----- ----- ----- ----- ----- ----- ----- ----- ----- ---- END OF REPOR T Not Available [facility] [address] [facility] [address], [place], [address] 05/14/2022 13:19:43 05/14/20 22 05/14/2022 ERYTH ROCYT E SEDIM ENTAT ION RATE erythrocyte sedimentatio n rate 66 mm/HR 0-30 high Not Available [facility] [address] [facility] [address], [place], [address] 05/14/2022 13:29:45 05/14/20 22 05/14/2022 HEMOG LOBIN A1C hemoglobin A1C 5.8 4.3-5. 9 normal Not Available [facility] [address] [facility] [address], [place], [address] 05/14/2022 13:32:47 05/14/20 22 05/14/2022 HEMOG LOBIN A1C estimated average glucose 120 mg/dL Not Available [facility] [address] [facility] [address], [place], [address] 05/14/2022 13:32:47 05/14/20 22 05/14/2022 TYPE AND SCREDewayne Lorenzo BBK report Run: 05/14 1400 Speci men Inqui ry ----- ----- ----- ----- ----- ----- ----- ----- ----- ----- ----- ----- ----- ----- ----- ---- Name: FIONA ROWLEYY M Age/S ex: 61/F Locat ion: PAT.E M Acct: [id number] Unit: [id number] Statu s: PRE REF Room/ Bed: Re05/14 Disch : Att Dr: Amber cadet MD ----- ----- ----- ----- ----- ----- ----- ----- ----- ----- ----- ----- ----- ----- ----- ---- > Blood Type A Neg > Ab Peter lorenzo (Gel) NEGAT PARMINDER ----- ----- ----- ----- ----- ----- ----- ----- ----- ----- ----- ----- ----- ----- ----- ---- END OF REPOR T Not Available [facility] [address] [facility] [address], [place], [address] 05/14/2022 14:00:28 05/14/20 22 05/14/2022 C-DILIA CTIVE PROTE IN C-reactive protein 1.18 mg/dL <0.50 high Not Available [facility] [address] [facility] [address], [place], [address] 05/14/2022 14:03:29 05/14/20 22 05/14/2022 COMPR EHENS PARMINDER METAB OLIC PANEL sodium 141 mmol/ L 137-14 6 normal Not Available [facility] [address] [facility] [address], [place], [address] 05/14/2022 14:03:58 05/14/20 22 05/14/2022 COMPR EHENS PARMINDER METAB OLIC PANEL potassium,K 3.9 mmol/ L 3.5-5. 3 normal Not Available [facility] [address] [facility] [address], [place], [address] 05/14/2022 14:03:58 05/14/20 22 05/14/2022 COMPR EHENS PARMINDER METAB OLIC PANEL chloride 104 mmol/ L 98-107 normal Not Available [facility] [address] [facility] [address], [place], [address] 05/14/2022 14:03:58 05/14/20 22 05/14/2022 COMPR EHENS PARMINDER METAB OLIC PANEL carbon dioxide 29 mmol/ L 23-32 normal Not Available [facility] [address] [facility] [address], [place], [address] 05/14/2022 14:03:58 05/14/20 22 05/14/2022 COMPR EHENS PARMINDER METAB OLIC PANEL anion gap 8 mmol/ L 5-15 normal Not Available [facility] [address] [facility] [address], [place], [address] 05/14/2022 14:03:58 05/14/20 22 05/14/2022 COMPR EHENS PARMINDER METAB OLIC PANEL blood urea nitrogen 5 mg/dL 5-25 normal Not Available [facility] [address] [facility] [address], [place], [address] 05/14/2022 14:03:58 05/14/20 22 05/14/2022 COMPR EHENS PARMINDER METAB OLIC PANEL creatinine 0.9 mg/dL 0.5-1. 1 normal Not Available [facility] [address] [facility] [address], [place], [address] 05/14/2022 14:03:58 05/14/20 22 05/14/2022 COMPR EHENS PARMINDER METAB OLIC PANEL estimated GFR ( nikhil 81 >=60 mL/min / Not Available [facility] [address] [address], [place], [address] 05/14/2022 14:03:58 05/14/20 22 05/14/2022 COMPR EHENS PARMINDER METAB OLIC PANEL estimated GFR (non afr nikhil 69 >=60 mL/min / Not Available [facility] [address] [address], [place], [address] 05/14/2022 14:03:58 05/14/20 22 05/14/2022 COMPR EHENS PARMINDER METAB OLIC PANEL BUN/creatini ne ratio 5.6 10.0-2 0.0 low Not Available [facility] [address] [address], [place], [address] 05/14/2022 14:03:58 05/14/20 22 05/14/2022 COMPR EHENS PARMINDER METAB OLIC PANEL glucose 101 mg/dL <100 -fasti ng high Not Available [facility] [address] [address], [place], [address] 05/14/2022 14:03:58 05/14/20 22 05/14/2022 COMPR EHENS PARMINDER METAB OLIC PANEL calcium 9.4 mg/dL 8.6-10 .3 normal Not Available [facility] [address] [address], [place], [address] 05/14/2022 14:03:58 05/14/20 22 05/14/2022 COMPR EHENS PARMINDER METAB OLIC PANEL bilirubin,to gab < 0.2 mg/dL <1.2 Not Available [facility] [address] [address], [place], [address] 05/14/2022 14:03:58 05/14/20 22 05/14/2022 COMPR EHENS PARMINDER METAB OLIC PANEL aspartate amino transferase 23 U/L 15-41 normal Not Available [facility] [address] [address], [place], [address] 05/14/2022 14:03:58 05/14/20 22 05/14/2022 COMPR EHENS PARMINDER METAB OLIC PANEL alanine aminotransfe rase 13 U/L 14-54 low Not Available [facility] [address] [address], [place], [address] 05/14/2022 14:03:58 05/14/20 22 05/14/2022 COMPR EHENS PARMINDER METAB OLIC PANEL total protein 7.5 g/dL 6.4-8. 3 normal Not Available [facility] [address] [address], [place], [address] 05/14/2022 14:03:58 05/14/20 22 05/14/2022 COMPR EHENS PARMINDER METAB OLIC PANEL albumin level 4.2 g/dL 4.0-5. 0 normal Not Available [facility] [address] [address], [place], [address] 05/14/2022 14:03:58 05/14/20 22 05/14/2022 COMPR EHENS PARMINDER METAB OLIC PANEL albumin/glob ulin ratio 1.3 1.0-2. 6 normal Not Available [facility] [address] [address], [place], [address] 05/14/2022 14:03:58 05/14/20 22 05/14/2022 COMPR EHENS PARMINDER METAB OLIC PANEL alkaline phosphatase 162 U/L 35-104 high Not Available [facility] [address] [address], [place], [address] 05/14/2022 14:03:58 05/14/20 22 05/15/2022 MRSA/ MSSA PRE-O P (NARE S) MRSA/mssa pre-op (nares) No Methic illin Sensit parminder or Resist ant Staph aureus isolat ed. Not Available [facility] [address] [address], [place], [address] 05/15/2022 14:02:41 05/22/20 22 05/22/2022 SURGI SOFY PATHO LOGY results Run: 05/24 1635 Speci men Inqui ry ----- ----- ----- ----- ----- ----- ----- ----- ----- ----- ----- ----- ----- ----- ----- ---- Name: FIONA ROWLEY Age/S ex: 62/F Locat ion: PACU. EM Acct: [id number] Unit: [id number] Statu s: DIS IN Room/ Bed: PACU. 11 Re05/22 Disch : 05/[address]: Amber cadet MD ----- ----- ----- ----- ----- ----- ----- ----- ----- ----- ----- ----- ----- ----- ----- ---- Final Diagn osis Right hip bone, excis ion: - Degen erati ve joint disea se. - Bone marro w with matur ing trili neage hemat opoie sis. - Synov ium-l ined tissu e with react parminder carmencita baig. Tissu es A. Femor al Head Osteo arthr itis - RIGHT HIP BONE Gross Descr iptio n The speci men is recei maurice in forma jim label ed with the patie nt's name, date of b and ?righ t hip bone, is a pale harkins, femor al head measu ring 4.5 cm in lengt h and 4. [address] with a padmini h resec tion ximena n. The artic ular surfa ce is denud ed with areas eburn ation and ximena nal lippi ng. The corti sofy bone is red-y ellow , no arturo s or lesio ns seen. Also in the conta iner is a fragm ent of harkins-p ink carti lagin ous tissu e, 4. 0 x 2.0 x 2.0 cm. The speci men is repre sente d as chiqui aden. A1, A2: Femor al head repre sente d chiqui wing A3: Carti lagin ous tissu e repre sente d Nick chandler, HELEN 05/23 , 6:16A M Pre-O perat parminder Diagn osis Right hip osteo arthr itis Post- Opera tive Diagn osis None provi ded Patho logy Proce dures CPT Proce dures :[place] 49739 Hemat oxyli n + Eosin Stain /3 39953 Level 3 - Gross and Micro scopi c Kala d (sign ature on file) _ Josesito felder MD 05/24 1445 ----- ----- ----- ----- ----- ----- ----- ----- ----- ----- ----- ----- ----- ----- ----- ---- END OF REPOR T Not Available [facility] [address], [place], [address] 05/24/2022 14:45:34 02/17/20 22 02/16/2022 XR, hip, unila teral [facility] [address] [place], [place] [address] Patien t Name: NADIA MILLER Medica l Record #: [id number] Addres s: [address] [facility] t#: [id number] City/S mitchell/Z ip: [place] [address]: Kate zayas PAC Phone: Insura nce: Medica re A&B /Ag e/Sex: 1959/6 0/F Mass[facility] alth No PCC Admit/ Reg Date: Orderi sudheer Dr: Kate zayas, PAC Locati on: [facility] EM/ PCP: Pcp-No n StaffMd Date of Servic e: Order (s): XR hip LT min 2V CPT Code: 72790 Report Number : [id number] Reason for Exam: PAIN Pain Fronta l pelvis should throug h latera l left hip: Left THR appara tus. Preser maurice alignm ent. No eviden ce of hardwa re loosen ing or migrat ion. Modera tely advanc ed degene rative change s noted in the right hip joint. Transp edicul ar stabil izatio n in the lower lumbar spine with latera l fusion bony masses . Surgic al clips in the right parasp inal region . Impres jon: Benign appear ance of left THR appara tus. Modera tely advanc ed degene rative change s of the [place] right hip. Dictat ed By: Claribel jasso MD 1454 Signed By: Gene Lucas MD 1500 TD/TT: 1454 Tech: AD482 cc: LHELA; PCPNS* Kate Hatfield eux, PAC; Loreta Waldrop [facility] [address], [place], [address] 02/20/2022 15:35:03 02/17/20 22 02/15/2022 XR, hip, unila teral , 2 or 3 view No observ ation record ed. [facility] Atention: Jethro [address] [facility], [place], [address], 02/20/2022 15:35:04 02/20/20 22 02/19/2022 XR, hip, unila teral , 1 view [facility] Medica l [facility] [address] [place] [address] Patien t Name: GISELLA BaigNADIAMaura Caceres Medica l Record #: [id number] Addres s: [address] [facility] Accoun t#: [id number] City/S mitchell/Z ip: [place] [address]: Elvia Martinez MD Phone: Insura nce: Medica re A&B /Ag e/Sex: 1959/6 0/F Mass[employer] al[facility] No PCC Admit/ Reg Date: Calii sudheer Johnson: Kate zayas, PAC Locati on: PACU.E M/PACU . PCP: Memo Nguyen Md Date of Servic e: Order (s): XR hip LT 1V CPT Code: 96455 Report Number : [id number] Reason for Exam: s/p L ANNETTE PROCED URE: XR hip LT 1V REASON FOR EXAM: s/p L ANNETTE ADDITI ONAL CLINIC AL HISTOR Y: None COMPAR ERIKA: FINDIN GS: AP portab le supine A total left hip prosth esis is in place. Positi oning appear s satisf actory and unchan ged. No lucenc y seen around the hardwa re. There are some lucenc ies in the soft tissue latera l to the hip and latera l to the visual ized proxim al femora l shaft. This may be relate d to surger y or proced ure the patien t has had one recent ly. This is increa sed since the prior No hetero topic bone is seen. IMPRES JON: LUCENC IES IN THE SOFT TISSUE LATERA L TO THE HIP AND THE VISUAL IZED FEMORA L SHAFT MAY BE RELATE D TO AIR FROM RECENT SURGER Y OR PROCED URE IF THE PATIEN T HAS HAD ONE, INCREA SED SINCE . OTHERW ISE, THIS MAY BE SEEN WITH INFECT ION. CLINIC AL CORREL ATE. Dictat ed By: Jaswinder king MD 160 Signed By: Cassidy Pritchett MD 1610 TD/TT: 1602 Tech: CV122 cc: MARGUERITE; HELENA; SEAN * Kate zayas, PAC; Elvia Martinez MD; Loreta Waldrop [facility] [address] [facility] [address], [place], [address] 02/20/2022 15:35:04 02/20/20 22 02/19/2022 XR, hip, unila teral , 2 or 3 view No observ ation record ed. [facility] [address] [facility], [place], [address], 02/20/2022 15:35:05 03/09/20 22 03/09/2022 XR, hip + pelvi s, unila teral [facility] [address] [place] [address] Patien t Name: NADIA MILLER Medica l Record #: [id number] Addres s: [address] [facility] Accoun t#: [id number] City/S [place]/Z ip: [place] [address]: Kate zaysa PAC Phone: Insura nce: Medica re A&B /Ag e/Sex: 1959/ [birth year]/F [employer] No PCC Admit/ Reg Date: Orderi ng Dr: Kate zayas, PAC Locati on: [facility] EM/ PCP: Pcp-No maura StaffMd Date of Servic e: Order (s): XR hip pelvis LT min 2V CPT Code: 32741 Report Number : [id number] Reason for Exam: HIP PAIN XR hip pelvis LT min 2V HISTOR Y: . HIP PAIN TECHNI QUE: AP pelvis , 2 views left hip COMPAR ERIKA: 022 FINDIN GS: Left hip arthro plasty with expect ed positi on of the prosth etic compon ents. No hardwa re failur e or loosen ing. There is advanc ed right hip arthri tis with joint space narrow ing and spurri ng of the head neck juncti on. Fusion hardwa re noted at L4-L5. Unrema rkable soft tissue s. IMPRES JON: Unrema rkable left hip arthro plasty . Advanc ed right hip arthri tis. Dictat ed By: Urbano Beach MD 1021 Signed By: Urbano Beach MD 1029 TD/TT: 1021 Tech: SEMDTT 01 cc: LHELA; PCPNS* Kate zayas, PAC; Dequan vuLoreta ryanne [facility] [address], [place], [address] 03/13/2022 16:45:35 03/09/20 22 03/07/2022 XR, hip, unila teral , 2 or 3 view No observ ation record ed. [facility] Atention: Jethro [address] [facility], [place], [address], 03/13/2022 16:45:35 05/15/2005/15/2022 CT, hip, w/o contr ast [facility] Medica l [facility] [address] [place] [address] Patien t Name: NADIA MILLER Morris Medica l Record #: [id number] Addres s: [address] [facility] Accoun t#: [id number] City/S mitchell/Z ip: [place] [address]: Rigo Kennedy PAC Phone: Insura nce: Medica re A&B /Ag e/Sex: 1959/ [birth year]/F Mass[employer] al[facility] No PCC Admit/ Reg Date: Orderi sudheer Dr: Rigo Kennedy, PAC Locati on: DI.CTE M/ PCP: Pcp-No n StaffMd Date of Servic e: Order (s): CT johanna hip RT wo contra st CPT Code: 84893 Report Number : [id number] Reason for Exam: OSTEOA RTHRIT IS OF RIGHT HIP JOINT CT SCAN RIGHT LOWER EXTREM ITY WITHOU T CONTRA ST: CLINIC AL INFORM ATION: Osteoa rthros is of the right hip. Makopl asty. COMPAR ERIKA: None availa ble. TECHNI QUE: On a multid etecto r CT multip le axial CT images were perfor med for bilate ral hips and knees. Barlow l and sagitt al 2 mm reform ats of bilate ral hips were acquir ed. Automa koko exposu re contro l and iterat parminder recons tructi on techni ques were used. FINDIN GS: The right hip, the contra latera l hip and bilate ral knees were scanne d for comput er analys is. No destru ctive bone lesion or mass is identi fied. There are preser maurice periar ticula r fascia l planes . There is severe osteoa rthros is of the right hip. Total left arthro plasty is noted. IMPRES JON: Pre Makopl asty prosth esis fittin g for osteoa rthros is of the right hip. Dictat ed By: Carla Norris i, MD 1658 Signed By: Joselyn Norris i, MD 1704 TD/TT: 1658 Tech: [facility] 01 cc: GENTRY; PCPNS* PIERCE Guevara; Loreta Waldrop [facility] [address] [facility] [address], [place], [address] 05/16/2022 11:03:39 05/22/2005/22/2022 XR, hip, unila teral , 1 view [facility] Medica [facility] [address] [place] [address] Patien t Name: ZEYADKarthik PRIYA BaigMaura Caceres Medica l Record #: [id number] Addres s: [address] [facility] Accoun t#: [id number] City/S mitchell/Z ip: [place] [address]: Elvia Martinez MD Phone: Insura nce: Medica re A&B /Ag e/Sex: 1959/ 1/F [facility] alth No PCC Admit/ Reg Date: Waldo willard Dr: Kate zayas PAC Locati on: PACU.E M/PACU . PCP: PcpHugo Nguyen Md Date of Servic e: Order (s): XR hip RT 1V CPT Code: 89911 Report Number : [id number] Reason for Exam: s/p R ANNETTE XR hip RT 1V, 022 3:14 PM Clinic al histor y: s/p R ANNETTE COMPAR ERIKA: None. TECHNI QUE: 1 views are obtain ed. FINDIN GS: Right hip prosth esis is in good alignm ent. Dictat ed By: Sunil Samuel MD 160 Signed By: Kenneth Samuel MD 1625 TD/TT: 1606 Tech: CV122 cc: LHELA; PCPDIO; SEAN * Kate zayas PAC; Elvia Martinez MD; Loreta Waldrop [facility] Rad [address] [address], [place], [address] 06/05/2022 16:33:25 05/22/20 22 05/22/2022 XR, hip, unila teral No observ ation record ed. [facility] [place] [facility] [address] [place] [address], [address], 06/07/2022 13:05:01 05/23/20 22 05/14/2022 EKG [address] tayla jamison [facility] Medica [address] [address] Patien t Name: GISELLA BaigNADIAMaura Caceres Medica l Record #: [id number] Addres s: [address] [facility] Accoun t#: [id number] City/S mitchell/Z ip: [place] [address]: Elvia Martinez MD Phone: Insura nce: Medica re A&B /Ag e/Sex: 1959/6 0/F [facility] No PCC Admit/ Reg Date: Orderi ng Dr: Elvia Martinez MD Locati on: PAT.EM / PCP: Pcp-No n Staff, Md Date of Servic e: Order (s): EKG Electr ocardi ogram CPT Code: 13176 Report Number : [id number] Reason for Exam: pre op Sinus rhythm , Regula r, HR 79 NORMAL AXIS AND INTERV ALS. Possib le inferi or director of compliance ior infarc t - age undete rmined Anteri or T wave abnorm ality is nonspe cific Compar erika Summar y: No serial compar erika made Summar y: Abnorm al ECG Dictat ed By: Jael Ji MD 110 Signed By: Marya Ji MD 1301 TD/TT: 1102 Tech: RAFAEL cc: PCPNS; SEAN * Elvia Martinez MD; Loreta Waldrop [facility] [address] [facility] [address], [place], [address] 06/07/2022 11:54:34 06/08/20 22 06/08/2022 XR, hip + pelvi s, bilat eral [facility] [address] [place], [place] [id number] [phone] Patien t Name: NADIA MILLER Medica l Record #: [id number] Addres s: [address] [facility] Accoun t#: [id number] City/S mitchell/Z ip: [place] [address]: Kate zayas PAC Phone: Insura nce: Medica re A&B /Ag e/Sex: 1959/6 1/F Mass[facility] al[facility] No PCC Admit/ Reg Date: Orderi sudheer Dr: Kate zayas, PAC Locati on: [facility] EM/ PCP: PcpHugo Nguyen Md Date of Servic e: Order (s): XR hip pelvis BI min 3V CPT Code: 76066 Report Number : [id number] Reason for Exam: HIP PAIN Pain Fronta l pelvis , fronta l shoot throug h latera l views of the hips: Bilate ral THR appara tus with noncem ented femora l stem compon ents. Right- sided is new. Normal alignm ent. No eviden ce of compli cation . Benign postsu rgical change s in the lumbar spine with transp edicul ar stabil izatio n at L4-5 levels . Nonspe cific bowel gas patter n. Impres jon: Benign appear ance of bilate ral THR. No eviden ce of compli cation s. Dictat ed By: Claribel jasso MD 1649 Signed By: Gene Lucas MD 1655 TD/TT: 1649 Tech: SEMDTT 01 cc: MARGUERITE; PCPNS* Kate zayas, PAC; Loreta Waldrop [facility] [address], [place], [address] 06/12/2022 14:34:30 06/08/20 22 06/06/2022 XR, hip, bilat eral No observ ation record ed. [facility] Atention: Jethro [address] [facility], [place], [address], 06/12/2022 14:34:55 Result Notes Documentation Provider Name and Address Organization Details Recorded Time Xr, Hip + Pelvis, Unilateral : [facility] [address] [place] [address] Patient Name: LAURA HICKMAN Medical Record#: [id number] Address: [address] [place] [address] City/State/Zip: [place] [address]: Kate Young PAC Insurance: Medicare A&B /Age/Sex: 1960/61/F [facility] No PCC Admit/Reg Date: 03/06/[address]: Kate Young, PAC Location: .[facility]/ PCP: Pcp-Non StaffMd Date of Service: 03/07/22 Order (s): XR hip pelvis LT min 2V CPT Code: 36430 Report Number: [id number] Reason for Exam: HIP PAIN XR hip pelvis LT min 2V HISTORY: . HIP PAIN TECHNIQUE: AP pelvis, 2 views left hip COMPARISON: 02/19/2022 FINDINGS: Left hip arthroplasty with expected position of the prosthetic components. No hardware failure or loosening. There is advanced right hip arthritis with joint space narrowing and spurring of the head neck junction. Fusion hardware noted at L4-L5. Unremarkable soft tissues. IMPRESSION: Unremarkable left hip arthroplasty. Advanced right hip arthritis. Dictated By: Urbano Beach MD 03/09/22 1021 Signed By: Urbano Beach MD 03/09/22 1029 TD/TT: 03/09/22 1021 Tech: [id number] cc: MARGUERITE; HELENA* Kate Young, PAC; Oracio Douglas, HELEN [address] [place] [address], [phone] 03/13/2022 16:45:35 Ct, Hip, W/o Contrast : [place] [address] Patient Name: LAURA HICKMAN Medical Record#: [id number] Address: [address] [place] [address] City/State/Zip: [place] [address]: Bindu Kennedy PAC Insurance: Medicare A&B /Age/Sex: 1960/61/F [facility] No PCC Admit/Reg Date: 05/14/[address]: Bindu Kennedy, PAC Location: DI.CTEM/ PCP: Pcp-Marie Nguyen Md Date of Service: 05/14/22 Order (s): CT johanna hip RT wo contrast CPT Code: 89595 Report Number: [id number] Reason for Exam: OSTEOARTHRITIS OF RIGHT HIP JOINT CT SCAN RIGHT LOWER EXTREMITY WITHOUT CONTRAST: CLINICAL INFORMATION: Osteoarthrosis of the right hip. Makoplasty. COMPARISON: None available. TECHNIQUE: On a multidetector CT multiple axial CT images were performed for bilateral hips and knees. Coronal and sagittal 2 mm reformats of bilateral hips were acquired. Automated exposure control and iterative reconstruction techniques were used. FINDINGS: The right hip, the contralateral hip and bilateral knees were scanned for computer analysis. No destructive bone lesion or mass is identified. There are preserved periarticular fascial planes. There is severe osteoarthrosis of the right hip. Total left arthroplasty is noted. IMPRESSION: Pre Makoplasty prosthesis fitting for osteoarthrosis of the right hip. Dictated By: Mary Kauffmna MD 05/15/221658 Signed By: Mary Kauffman MD 05/15/22 1705 TD/TT: 05/15/221658 Tech: [id number] cc: GENTRY; CHECONS* Bindu Kennedy, PIERCE; Oracio Douglas PA [address] [place] [address], [phone] 05/16/2022 11:03:39 Xr, Hip, Unilateral, 1 View : [place] [id number] Patient Name: LAURA HICKMAN Medical Record#: [id number] Address: [address] [place] [address] City/State/Zip: [place] [address]: Geovany Martinez MD Insurance: Medicare A&B /Age/Sex: 1960/62/F [facility] No PCC Admit/Reg Date: 05/22/[address]: PIERCE Johnson Location: PACU.EM/PACU.EM-11 PCP: Mike Nguyen Md Date of Service: 05/22/22 Order (s): XR hip RT 1V CPT Code: 32797 Report Number: [id number] Reason for Exam: s/p R ANNETTE XR hip RT 1V, 05/22/2022 3:14 PM Clinical history: s/p R ANNETTE COMPARISON: None. TECHNIQUE: 1 views are obtained. FINDINGS: Right hip prosthesis is in good alignment. Dictated By: Sunil Samuel MD 05/22/22 1606 Signed By: Sunil Samuel MD 05/22/22 1625 TD/TT: 05/22/22 1606 Tech: [id number] cc: MARGUERITE; HELENA; SEAN* Kate Young, PAC; Geovany Martinez MD; Oracio Douglas PA [address] [place] [address], [phone], [facility] 06/05/2022 16:33:25 Xr, Hip + Pelvis, Bilateral : [facility] at [address] [address] Patient Name: LAURA HICKMAN Medical Record#: [id number] Address: [address] [place] [address] City/State/Zip: [place] [address]: Kate Young PAC Insurance: Medicare A&B /Age/Sex: 1960/62/F [facility] No PCC Admit/Reg Date: 06/06/[address]: PIERCE Johnson Location: [facility]/ PCP: Mike StaffMd Date of Service: 06/06/22 Order (s): XR hip pelvis BI min 3V CPT Code: 18637 Report Number: [id number] Reason for Exam: HIP PAIN Pain Frontal pelvis, frontal shoot through lateral views of the hips: Bilateral THR apparatus with noncemented femoral stem components. Right-sided is new. Normal alignment. No evidence of complication. Benign postsurgical changes in the lumbar spine with transpedicular stabilization at L4-5 levels. Nonspecific bowel gas pattern. Impression: Benign appearance of bilateral THR. No evidence of complications. Dictated By: Claribel Joy MD 06/08/221649 Signed By: Claribel Joy MD 06/08/221655 TD/TT: 06/08/22 165 Tech: [id number] cc: MARGUERITE; HELENA* Kate Young, PAC; Oracio Douglas PA [address] [place], [phone], [facility] 06/12/2022 14:34:30 Procedures Surgical History Date Name Laterality Status Provider Name and Address Organization Details Recorded Time 2 TeleHealth Visit completed Sophie Weathers MD [address] [facility], [place], [phone], [facility] 04/03/2022 14:11:05 2 TeleHealth Visit completed Patricia Amaro [facility] 03/06/2022 08:58:21 Imaging Results None recorded. Procedure Notes None recorded. Medical Equipment None Reported. Allergies No known drug allergies Medications Name Sig Start Date Stop Date Status Note LastModified by Organization Details LastModified Time celecoxib 200 mg capsule TAKE 1 CAPSULE BY MOUTH ONCE DAILY NEEDED active Not Available Not Available No t Available doxycycline hyclate 100 mg capsule Take 1 capsule twice a day by oral route for 42 days. 2021 active Not Available Not Available Not Avai lable famotidine 20 mg tablet Take 1 tablet twice a day by oral route as needed. 2021 active Not Available Not Available Not Avai lable Valium 2 mg tablet Take 1 tablet 3 times a day by oral route as needed. 2021 active Not Available Not Available Not Avai lable docusate sodium 100 mg capsule TAKE 1 CAPSULE BY MOUTH two (2) times a day NEEDED active Not Available Not Available No t Available Tylenol 325 mg tablet Take 3 tablets every 8 hours by oral route as needed. 2021 active Not Available Not Available Not Avai lable acetaminoph en active Not Available Not Available Not Available Nicotine Transdermal 04/03 completed Not Available Not Available Not Available oxycodone 20 mg tablet Take 1 tablet every 4-6 hours by oral route. 2021 active Not Available Not Available Not Avai lable oxycodone 10 mg tablet take 1-2 tabs every 8 hours as needed for breakthro ugh pain 2021 active Not Available Not Available Not Avai lable cefazolin 2 gram/100 mL in dextrose(is o-osmotic) intravenous piggyback Infuse 100 mL every 8 hours by intraveno us route. active Not Available Not Available No t Available Vitals None Recorded Social History None recorded. Functional Status None recorded. Mental Status None recorded. Family History Nothing Reported. Medical History No medical history recorded. Gynecological HistoryNo gynecological history recorded. Obstetrics History GPAL:G 0 P 0 0 0 0 Past Encounters Encounter ID Performer Location Encounter Start Date Encounter Closed Date Diagnosis/Indication Diagnosis SNOMED-CT Code Diagnosis ICD10 Code Diagnosis Note [id number] HELEN JOHNSON [facility] PT [address] [address] 02/15/2022 10:09:12 02/22/2022 15:55:47 Dehiscence of surgical wound [id number] T81.30XA Pleasant 61-year-ol d female presents regarding her left hip. 5 weeks status post left hip replacemen t. She has persistant drainage and wound dehiscence . No obvious signs of deep infection but there is a concern for sinus into the joint. Patient will obtain labs today with ESR, CRP, CBC CMP. She has just completed a course of oral Keflex, aspiration considered but unreliable . We discussed treatment options given infection concern, surgical interventi on with left hip I and D, wound revision and probable head/liner exchange for Saturday with Dr. Martinez. I discussed if intraopera tive findings reveal deep infection, she will require 4-6 weeks of IV antibiotic s. Informed consent was freely obtained today. Can continue eliquis for afib. Will obtain covid test locally. All questions and concerns were answered to the best of my ability. X-rays of the left hip were obtained and demonstrat e total hip arthroplas ty. Collared femoral stem. No evidence of fracture or failure. No lucency. 35 the middle of the evaluation , chart review, surgical coordinati on and treatment formulatio n. 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 Intraop cultures with no growth today. We did opt to treat the patient with a PICC line. She has been receiving Ancef. She was on Keflex prior to surgical interventi on. She had tele health with ID and we are waiting on lab work. Tentative plan for PICC removal verses 2 more weeks based on lab work and transition to orals. Surgical site is healing well. She will continue with activities as tolerated. X-rays were obtained and demonstrat e stable components . We reviewed incision care, DVT prophylaxi s, main pain management and rehab. Will continue with home PT and transition to outpatient once picc removed. Will start outpatient PT once appropriat e. Plans to follow-up in 4 weeks for tele health given far drive. Patient was sent for lab work today. Will call with questions or concerns. 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 Xrays were reviewed and demonstrat e complete loss of joint space, periarticu lar osteophyte s, and bone-bone disease. Patient has maximized conservati ve treatment with anti-infla mmatories, Tylenol, activity modificati on, weight modificati on, and a physician directed home exercise program for over 3 months. The patient is very frustrated with decline in function and decreased quality of life. We discussed the risks and benefits of continued nonoperati ve versus operative treatment in detail today. At this point, the patient is indicated for a right anterior total hip arthroplas ty. We discussed that given her infection history, we will likely put her on a prophylact ic course of 6 weeks of p.o. antibiotic s postoperat ively. Additional ly, she has AFib on Eliquis and that she will need to stop her Eliquis for 3 days preop, she should reach out to her primary care doctor to see if she needs to bridge with Lovenox for those 3 days. Pain of ri ght hip joint [id number] 86966 M25.551 History of left hip replacement [id number] 952297 Z96.642 Doing well status post I and D and head liner exchange with wound revision given postoperat parminder wound dehiscence . Most recent lab work reassuring . No issues with her incision. She is off antibiotic s. No reported fevers or chills or increasing pain. [id number] HELEN JOHNSON [facility] [address] [place] [address] 06/06/2022 10:23:14 06/07/2022 11:06:46 History of total replacement of right hip joint [id number] 97842 Z96.641 Two weeks status post right anterior ANNETTE. X-rays were obtained and demonstrat e stable Press-Fit components . Patient has continued pain, not surprising given her chronic narcotic use. I did give her another prescripti on for Oxy 10s. We also discussed increasing her gabapentin to 600 t.i.d.. Otherwise, we reviewed incision care, rehab, DVT prophylaxi s, pain control and anticipate d recovery. Will follow-up in 6 weeks via [facility]. Health Concerns Section Related Observation LastModified by Organization Detai ls LastModified Time None Recorded Concern Status LastModified by Organization Details LastModified Time None Recorded Advance Directives Directive None Recorded Payers Insurance Date Sequence Insurance Name Policy Number Policy Gutiérrez Covered Member ID Gutiérrez Member ID Guarantor Name 07/22/2022 1 [place] [employer] Laura Hickman [id number] Larua Hickman 07/22/2022 2 [place] [facility] Laura Hickman [id number] Laura Hickman Notes Date Note Type Note Provider Name and Address Organization Details Recorded Time 2 text/html The patient acknowledges that they can see a clinician in-person in the event of an emergency or as otherwise needed yes Patient consents to having a Telehealth appointment today yes Patients host site is: home. Persons present patient alone My originating site: my office. Person present myself alone This appointment/visit has been conducted using two-way, real-time telehealth video conferencing in which audio alone was used due to technical complications despite multiple tries, proceeded with patient consent audio alone on host/patient site She is following up through telehealth. 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 Since the surgery, she has been having oozing from her incision site and reports that she has received oral Keflex for the past several weeks up until 02/16/2022. She denied fevers, chills or worsening pain. She was found to have wound dehiscence throughout the entirety of the incision with serosanguineous drainage, as well as soft tissue swelling and erythema around the incision site without obvious superimposed cellulitis. Hip x-ray 02/15 showed no evidence of hardware loosening or migration. ESR on 02/15 was 34; CRP was 1.59 She is s/p left revision of total hip on 02/19 with head and liner exchange, irrigation and excisional debridement of left hip with removal of the skin, adipose tissue, and fascia, and left hip revision wound closure 12 centimetre x6 centimetre. Intra-op, there was fibrinous and necrotic appearing discharge about the prior incision site with superficial purulence; the underlying hip capsule was quite well healed; the capsule was opened and 3 frozen specimen of capsule were sent for frozen analysis demonstrating < 5 neutrophils per high-power field. There was minimal joint fluid within the joint which was then copiously irrigated. G stain showed rare WBCs with no organisms and culture was negative. She received empiric IV cefazolin and vancomycin in the hospital, but then discharged on cefazolin alone as cultures were no growth by the time of her discharge on 02/22.Her cultures have then been finalized and negative. Pathology report:A. LEFT HIP TISSUE 1.Small (1 mm) area of low-grade acute inflammationLess than 6 PMNs per high-power fieldB. LEFT HIP TISSUE 2.Reactive changes, No acute inflammation is identifiedC. LEFT HIP TISSUE 3.Reactive changes, no acute inflammation is identified She continues on cefazolin via PICC line at home with [facility] services. Before surgery:ESR 02/15: 34CRP 02/15: 1.59 She takes the cefazolin three times a day; has missed about 3 doses as she would fall asleep.She is tired from taking antibiotics that often.She tells me that the [facility] has not drawn any labs for her since discharge.Pain has improved since she left. She denies fevers/chills.she reports dry gauze with no drainage. Sophie Weathers MD [address] [place] [address], [phone], [facility] 03/06/2022 14:31:51 2 text/html Date of Procedure: 02/19/22Pre-operative Diagnosis: Left anterior hip wound dehiscencePost-operative diagnosis: same as preoperative diagnosisProcedure Performed: 1. Left revision total hip with head and liner exchange. 2. Irrigation and excisional debridement left hip with removal of skin, adipose tissue, and fascia. 3. Left hip revision wound closure 12 cm x 6 cmPrimary Surgeon: Geovany Martinez Intraop cultures with NGTD, was on preop abx (keflex)IV abx: Ancef 2gm q8HDVT ppx: ASA Patient presents today for follow-up. She reports doing relatively well with pain and function. She does state this is quite sore. She has been being treated for postop pain from her prior pain management doctors. She does request Celebrex. PICC line in place. She is hopeful to get this removed as soon as possible. Not had any recent lab work done. Denies any redness or drainage or his her incision site. The ambulating with a cane. Denies any numbness or tingling. Here today for postop exam with x-rays. HELEN JOHNSON [address] [place], [address], [facility] 03/07/2022 13:10:01 2 text/html The patient acknowledges that they can see a clinician in-person in the event of an emergency or as otherwise needed yes Patient consents to having a Telehealth appointment today yes Patients host site is: home. Persons present patient alone My originating site: my office. Person present myself alone This appointment/visit has been conducted using two-way, real-time telehealth video conferencing in which audio alone was used due to technical complications despite multiple tries, proceeded with patient consent audio alone on host/patient siteLaura is following up through telehealth.She had missed her recent follow-up appointment with me.She continues on cefazolin 2g iv q8hrs, however she reports that she has missed couple of doses and therefore has leftover bags . She tells me that the wound over her left hip has healed completely.She undergoes PT once a weekShe ambulates with a walker or caneHer right hip is now bothering her and was told she would need surgery in that hip as well. Her OR cultures from 02/19 are finalized and negative. LABS: Before surgery: ESR 02/15: 34 ; CRP 02/15: 1.59 After surgery:03/07: ESR 71 ; CRP 1.556/15: ESR 46 ; CRP 0.66/21: ESR 17 ; CRP 0.246/28: ESR 51 ; CRP 0.7 She denies fevers, chills, rash, pruritus, diarrhea. Sophie Weathers MD [address] [place], [address], [facility] 04/03/2022 14:14:52 2 text/html This is a 61-year-old woman who is presenting today with right hip pain. She is known to Dr. Martinez status post left hip surgical wound I and D and head liner exchange for persistent drainage and wound dehiscence on 02/19/2022, original left total hip surgery on 01/08/22 in [place]. She reports that her left hip is doing well. She is not having very much. No fevers or chills. No issues with her wound. She is able to weightbear on the left side. She had a PICC line with 6 weeks of cefazolin, followed by Dr. Weathers with Infectious Disease. No p.o. antibiotics given that her intraoperative left hip cultures were negative. Her right hip has become progressively more painful. It it is significantly limiting her day-to-day activities. She does take NSAIDs including Celebrex with little improvement. Most recent lab work reassuring given no white blood cell count and CRP 0.7. She is interested in right hip replacement surgery. HELEN ZHU [address] [place], [address], [facility] 05/09/2022 16:41:47 2 text/html Date of Procedure: 05/22/22Pre-operative Diagnosis: Right hip osteoarthritisPost-opera tive diagnosis: same as preoperative diagnosisProcedure Performed: Right anterior total hip arthroplastyPrimary Surgeon: Geovany Martinez Patient seen evaluated today. She reports still and significant pain. She does take chronic pain medications. She also reports some burning around the incision. Ambulating with a cane. Denies any numbness or tingling. Here today for postop exam. HELEN JOHNSON [address] [place], [address], [facility] 06/06/2022 15:14:48 OBGyn Episode No OBEpisode recorded.
--- OUTSIDE RECORDS SUMMARY | 2025-04-01 13:28 | XMS_ITS | Clinical Summary ---
Author Organization [facility] Address [address] [place] [address] Care Team Providers Care Rouge Sifter Name Role Phone Hosea Douglas PA-C Primary [...] Vaccine (1 of 2) 2011 Influenza Vaccine (Season Ended) 2025 RSV Adult > 60+ Yrs or Pregn [...] age to complete this topic Care Teams Rouge Sifter Relationship Specialty Start Date End Date Hosea Douglas, JOSSEC PCP - General Medical Services 12/11/21
[2025-04-01 13:33] VITALS: BMI 31.5
--- NOTE | 2025-04-01 13:33 | MHC.OFFVIS ---
Vital Signs 04/01/25 13:33 Height 5 ft 3 in Weight 178 lb BMI 31.5 Intake Visit Reasons: AHOOF: 2WKPO: L TKA w/DR 03/15/25 Intake Note: Laura is a 64 year old female who presents today for a post operative visit after undergoing a left TKA on 03/15/[address] Calero. Patient reports she is doing well, stated her current pain level is a 7.5 out of 10. Allergies pravastatin Allergy (Mild, Verified 04/01/25 13:35) rash Medication List - Last Reconciled 04/01/25 by Enzo Shell PA-C acetaminophen 650 mg (2 x 325 mg) PO Q6H PRN 30 days acyclovir 400 mg PO MOFR PRN albuterol sulfate 2.5 mg inhalation Q4H PRN albuterol sulfate 90 mcg/actuation (Ventolin HFA) 90 mcg inhalation Q4H PRN apixaban (Eliquis) 5 mg PO BID bupropion HCl XL 300 mg PO DAILY celecoxib 200 mg PO BID 30 days celecoxib 200 mg PO BEDTIME clonazepam 0.5 mg PO DAILY docusate sodium 100 mg PO BID PRN ferrous sulfate (FeroSul) 325 mg PO DAILY gabapentin 100 mg PO BEDTIME 7 days lamotrigine 300 mg PO BEDTIME melatonin 3 mg PO BEDTIME enkshogx-lfk-AP-lycopen-lutein 0.4 mg-300 mcg- 250 mcg (CertaVite Senior) 1 tab PO BEDTIME omeprazole 20 mg PO DAILY@0630 oxycodone 10 mg PO Q4H PRN 7 days rosuvastatin 10 mg PO BEDTIME sennosides (senna) 8.6 mg PO BID PRN sulfamethoxazole-trimethoprim 800-160 mg (Bactrim DS) 1 tab PO BID 30 days tizanidine 4 - 8 mg PO BEDTIME PRN trazodone 200 mg PO BEDTIME walker Folding front wheeled walker zolpidem 10 mg PO BEDTIME HPI HPI AHOOF: 2WKPO: L TKA w/DR 03/15/25: Details: 64-year-old female returns to the office today 2 weeks status post left total knee arthroplasty with Dr. Calero on 03/15/2025. She is currently working at home with physical therapy. She has no concerns at this point. [facility] Medical History Depression Asthma Migraines PVD (peripheral vascular disease) Elevated cholesterol COPD (chronic obstructive pulmonary disease) HTN (hypertension) Arthritis GERD (gastroesophageal reflux disease) Paroxysmal atrial flutter Status post placement of implantable loop recorder WPW (Szyky-Uftgkfyxu-Jrdoi syndrome) Surgical History Status post total left knee replacement (~03/15/25) History of hip surgery Hx of cholecystectomy History of cardiac radiofrequency ablation H/O colonoscopy History of hip surgery History of hip surgery History of back surgery Hx of neck surgery Family History Father HTN (hypertension) Mother HTN (hypertension) Social History Housing Other:: mobile home Are you a primary vp care management to a significant other at home: No Do you presently have visiting nurse or other home services: Yes ([employer]) Patient Tobacco Use Status: Current everyday Tobacco user Tobacco use type: Cigarette Cigarettes Per Day: 4 Years Smoked: 47 service: No Current occupational status: disabled Current occupation: Right hand dominate Review of Systems Const All systems reviewed & are unremarkable except as noted in HPI and below Physical Exam Vital Signs: BMI result Body Mass Index 31.5 Extrem Other: Left knee incision is clean dry and intact. No erythema or joint effusion. She has good quad activation and range of motion is 0-95 degrees. Calf supple and nontender neurovascularly intact. Assessment & Plan Assessment & Plan (1) Status post total left knee replacement: Onset Date: ~03/15/25 Code(s): Z96.652 - Presence of left artificial knee joint Category: Surgical Plan: Noemí removed today Steri-Strips applied. She will continue to work with physical therapy and transition to outpatient physical therapy over the next 1-2 weeks. An order has been placed today. A prescription for amoxicillin has been sent to the pharmacy in case she needs to go to the dentist however I did encouraged no cleanings for 3 months postop. She will avoid driving for another 4 weeks and see us back in [address] Calero sooner if needed. Orders: Orders XR knee LT 3V Today M25.562 - Pain in left knee Coding Level of Care Code Global (93015) Diagnoses Status post total left knee replacement Z96.652
== END 2025-04-01 14:03 | disposition home or self-care (01) ==
LOC: HO.HOS 13:20
PROVIDERS: PCP Physician Assistant Medical; Visit Provider Physician Assistant
DX: Z96.652 Presence of left artificial knee joint (principal)
CPT/HCPCS: 99024

== ENCOUNTER → 2025-04-01 13:22 | Outpatient (BNV) | payer MEDICAID, SELFPAY | PROVIDERS: Visit Provider Radiology Diagnostic Radiology | DX: M25.462 Effusion, left knee (principal) | CPT/HCPCS: 73562 ==

== ENCOUNTER 2025-04-22 13:02 | Outpatient (AMB) | payer MEDICAID, SELFPAY ==
--- NOTE | 2025-04-22 13:09 | A.OFFVIS_ITS ---
Vital Signs 04/22/25 13:10 Height 5 ft 3 in Weight 178 lb BMI 31.5 Intake Visit Reasons: [id number]: L TKA w/ 03/15/25, Right knee pain Intake Note: Laura is a 64 year old female who presents with complaints of progressively worsening right knee pain. She did undergo left total knee replacement surgery on 03/15/2025. She reports mild intermittent discomfort in her left knee. She continues with her physical therapy exercises. She describes her right knee pain as sharp and severe in nature, 10/10. Her right knee pain has gotten worse over the last few years in spite of continued non operative treatments. She has had multiple cortisone injections in the past. The most recent injection gave her minimal relief. She has also tried Tylenol and anti-inflammatory medicines which gave her minimal relief. The patient has difficulty walking even short distances because of her right knee pain. At this point her right knee pain is interfering with her activities of daily living and her ability to sleep well through the night. Allergies pravastatin Allergy (Mild, Verified 04/22/25 13:09) rash Medication List - Last Reconciled 04/22/25 by Richie Calero MD acetaminophen 650 mg (2 x 325 mg) PO Q6H PRN 30 days acyclovir 400 mg PO MOFR PRN albuterol sulfate 2.5 mg inhalation Q4H PRN albuterol sulfate 90 mcg/actuation (Ventolin HFA) 90 mcg inhalation Q4H PRN amoxicillin 2,000 mg (4 x 500 mg) PO ONCE 1 day apixaban (Eliquis) 5 mg PO BID bupropion HCl XL 300 mg PO DAILY celecoxib 200 mg PO BID 30 days celecoxib 200 mg PO BEDTIME clonazepam 0.5 mg PO DAILY docusate sodium 100 mg PO BID PRN ferrous sulfate (FeroSul) 325 mg PO DAILY gabapentin 100 mg PO BEDTIME 7 days lamotrigine 300 mg PO BEDTIME melatonin 3 mg PO BEDTIME ubzwisim-ior-ZH-lycopen-lutein 0.4 mg-300 mcg- 250 mcg (CertaVite Senior) 1 tab PO BEDTIME omeprazole 20 mg PO DAILY@0630 oxycodone 5 mg PO Q4H PRN 7 days rosuvastatin 10 mg PO BEDTIME sennosides (senna) 8.6 mg PO BID PRN sulfamethoxazole-trimethoprim 800-160 mg (Bactrim DS) 1 tab PO BID 30 days tizanidine 4 - 8 mg PO BEDTIME PRN trazodone 200 mg PO BEDTIME walker Folding front wheeled walker zolpidem 10 mg PO BEDTIME [facility] Medical History Depression Asthma Migraines PVD (peripheral vascular disease) Elevated cholesterol COPD (chronic obstructive pulmonary disease) HTN (hypertension) Arthritis GERD (gastroesophageal reflux disease) Paroxysmal atrial flutter Status post placement of implantable loop recorder WPW (Kimgv-Rctbsikep-Ewowu syndrome) Surgical History Status post total left knee replacement (~03/15/25) History of hip surgery Hx of cholecystectomy History of cardiac radiofrequency ablation H/O colonoscopy History of hip surgery History of hip surgery History of back surgery Hx of neck surgery Family History Father HTN (hypertension) Mother HTN (hypertension) Social History Housing Other:: mobile home Are you a primary health care marketing specialist to a significant other at home: No Do you presently have visiting nurse 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) Patient Tobacco Use Status: Current everyday Tobacco user Tobacco use type: Cigarette Cigarettes Per Day: 4 Years Smoked: 48 service: No Current occupational status: disabled Current occupation: Right hand dominate Physical Exam Vital Signs: BMI result Body Mass Index 31.5 Const Other: Well-nourished well-developed very friendly female awake alert and oriented x3 in no acute distress Extrem Other: Left knee examination shows that the surgical incision is well healed, no erythema, full active extension and flexion to 110 degrees, her patella tracks well Right knee examination shows a minimal effusion, palpable crepitus with range of motion, pain with range of motion, range of motion from -3 degrees to 100 10 degrees, no instability Results Reviewed Results Reviewed: X-rays of the patient's right knee taken previously show end-stage degenerative joint disease with grade 4 [id number] arthritis, subchondral sclerosis, osteophyte formation, no acute bony abnormalities Assessment & Plan Assessment & Plan (1) Right knee pain: Code(s): M25.561 - Pain in right knee Category: Medical (2) Arthritis of right knee: Code(s): M17.11 - Unilateral primary osteoarthritis, right knee Category: Medical (3) Left knee pain: Code(s): M25.562 - Pain in left knee Category: Medical Plan Ms. Hickman is doing well after undergoing left total knee replacement surgery on 03/15/2025. She will continue with her physical therapy exercises. She does have progressively worsening right knee pain due to end-stage degenerative joint disease. I had a lengthy discussion with the patient regarding the treatment options. At this point she has failed continued non operative treatments. The risks and benefits of right total knee replacement surgery were discussed at length with the patient. The patient wishes to proceed with surgery. She will be scheduled for next available date. I will see her back 1 week prior to her surgery to answer any final questions that she might have. She will follow-up as instructed. Feel free to call me at any time should questions regarding her orthopedic management arise. I spent 21 minutes in reviewing the patient's records and imaging studies, seeing the patient and documenting in the medical record. Coding Level of Care Code Est Pt Level 3 (99859) Complex EM visit Add On G2211 Diagnoses Right knee pain M25.561 Arthritis of right knee M17.11 Left knee pain M25.562
[2025-04-22 13:10] VITALS: BMI 31.5
--- OUTSIDE RECORDS SUMMARY | 2025-04-22 13:14 | XMS_ITS ---
Author Name [facility] Organization Unknown Care Team Organization Name Specialty Phone Email Start Date End Da te [facility] Hosea Douglas Primary Care 12/05/2022 [facility] Linda Riley Primary Care 08/07/2022 05/18/20 24
--- OUTSIDE RECORDS SUMMARY | 2025-04-22 13:14 | XMS_ITS | Clinical Summary ---
Author Organization [facility] [address] [place] [address] Address [address] [place] [address] Phone Care Team Providers Care Double Cut Off Saw Operator Name Role Phone Hosea Douglas Primary Care Provider [phone] Allergies Active Allergy Reactions Criticality Noted Date Comments Pravastatin 06/04/2014 Other Reaction(s): Other (See Comments) Skin rash Medications Cerovite Senior tablet Take 1 tablet by mouth 1 (one) time each day. 4 Active UNABLE TO FIND Take 1 tablet by mouth 1 (one) time each day. Calcium Carb-Cholecalcif elvis (Calcium Plus Vitamin D) 500-5 MG-MCG Tab 4 Active tiZANidine (ZANAFLEX) 4 mg tablet [...] Shortness of Breath or Cough. 4 Active diclofenac (VOLTAREN) 1 % topical gel [...] a day. 180 tablet 3 5 Active FeroSuL 325 mg (65 mg [...] times a day 180 tablet 5 Active buprenorphine (BUTRANS) 20 mcg/hour APPLY 1 PATCH TOPICALLY EACH WEEK 5 Active ipratropium (ATROVENT) 42 mcg (0.06 %) nasal spray Administer 2 sprays into each nostril 2 (two) times a day. 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 Asthma 02/13/2022 Paroxysmal atrial fibrillation ([facility] V24, [facility] V28) 02/13/2022 Primary osteoarthritis of right [...] rpt colonoscopy in 3 years Atrial flutter ([facility] V24, [facility] V28) 2013 Overview (08/19/2024): Atrial flutter [...] with Ansley Lobo PVD (peripheral vascular disease) ([facility] V24) 02/24/2013 COPD (chronic obstructive pu lmonary disease) ([facility] V24, [facility] V28) 10/28/2012 Insomnia 10/28/2012 Abdominal pain 07/24/2012 Knee pain 01/30/2010 Patella, chondromalacia 01/30/2010 Low back pain 01/13/2010 Radiculitis, lumbosacral 01/13/2010 Lumbar spondylosis 01/07/2010 Migraine 12/12/2007 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): Had open heart surgery Encounters Date Type Department Care Team Description 04/21/2025 Telephone Adult Medicine [address] [phone] Hosea Douglas PA Back Pain 04/08/2025 Telephone Adult Medicine [address] [phone] Hosea Douglas PA home health cert (03/17/25-05/15/25) 03/08/2025 Telephone Adult Medicine [address] [phone] Hosea Douglas PA Fitting for DME 03/03/2025 1:00 PM EDT Office Visit Orthopedic Surgery - [place] [address] [phone] Kamar Smith DPM PVD (peripheral vascular disease) ([facility] V24) (Primary Dx); Pain in toes of both feet; Arthritis of both feet; Dermatophytosis, nail 02/18/2025 12:45 PM EDT - 02/18/2025 11:59 PM EDT Hospital Encounter [facility] CT Scan [address] [place] [address] Encounter for screening for malignant neoplasm of respiratory organs; Nicotine dependence, cigarettes, uncomplicated Discharge Disposition: Home or Self Care 02/15/2025 10:00 AM EDT Consult Adult Medicine [facility] [address] [place] [phone] Hosea Douglas PA Preoperative cardiovascular examination (Primary Dx); Essential hypertension; Arthritis of left knee; Abnormal level of blood mineral 01/26/2025 Telephone Lung Screening Program - [address] [place] [address] Helen Leach [place] Appointment (1st [...] PROCEDURE: HISTORICAL TONSILLECTOMY OTHER SURGICAL HISTORY PROCEDURE: MN LIG/TRNSXJ FLP TUBE ABDL/VAG APPR UNI/BI OTHER SURGICAL HISTORY 08/2014 PROCEDURE: MN UNLISTED PROCEDURE SPINE; COMMENT: L4- L5 lumbar fusion COLONOSCOPY 04/17/2016 PROCEDURE: HISTORICAL COLONOSCOPY; COMMENT: 10 mm sigmoid colon polyp: Tubulovillous adenoma. OTHER SURGICAL HISTORY 03/2018 PROCEDURE: MN RMVL TOT DISC ARTHRP ANT 1 INTERSPACE CERVICAL; COMMENT: cer disckectomy C5- C7 OTHER SURGICAL HISTORY 01/08/2022 PROCEDURE: MN ANESTHESIA OPEN TOTAL HIP ARTHROPLASTY; COMMENT: dr. angel, done in [place] OTHER SURGICAL HISTORY 05/22/2022 Right PROCEDURE: MN ANESTHESIA OPEN TOTAL HIP ARTHROPLASTY; COMMENT: [facility] [...] 10/28/2012 DX:COPD (chronic o bstructive pulmonary disease) ([facility]) Insomnia 10/28/2012 DX:Insomnia PVD (peripheral vascular dis ease) (CMS/[facility] V24) 02/24/2013 DX:PVD (peripheral vascular disease) ([facility]) Major depression 02/24/2013 DX:Major depres jon [...] for your loved ones. For example, child study team director or elderly care for an older adult? [...] PM EDT Office Visit Orthopedic Surgery - [place] [address] [facility] [address] [place] [phone] Kamar Smith, ESSIE [address] [place] [address] [place] [address] 06/18/2025 2:30 PM EDT Office Visit Adult Medicine [facility] [address] [place] [address] Hosea Douglas PA [address] [place] [address] Health Maintenance Due Date Last Done Comments Zoster Vaccines (1 of 2) 2011 RSV Immunization Adult Patients (1 - Risk 60-74 years 1-dose series) 2021 HIV Screening 09/08/2022 Medicare Annual Wellness Visit 09/08/2022 COVID-19 Vaccine ( season) 2024 02/21/2022, 04/21/2021, 04/06/2021, Additional history exists Depression Screening 09/30/2024 11/25/2023 Influenza Vaccine (#1) 2025 , 07/02/2022, [...] PM EST Mastodynia HM HPV Routine 07/05/2022 COLONOSCOPY Routine 02/03/2021 HEPATITIS [...] Signed Date: 02/19/2025 05:47 ET Workstation ID: [id number] Transcribed By: Self Edit Transcribed Date: 02/19/2025 [...] Signed Date: 02/19/2025 05:47 ET Workstation ID: [id number] Transcribed By: Self Edit Transcribed Date: 02/19/2025 05:41 ET Carol Leos MD IMG CT PROCEDURES Final Result * ECG 12 lead Tracing Only (02/15/2025 10:34 AM EDT) Hosea CERVANTES ECG ORDERABLES Final Res ult * Lipid panel with reflex to direct LDL (12/15/2024 1:59 PM EDT) [facility] Signature Cholesterol 177 0 - 200 mg/dL LAB CHEMISTRY METHOD 12/15/2024 5:06 PM EDT [facility] Triglycerides 130 0 - 150 mg/dL LAB CHEMISTRY METHOD 12/15/2024 5:06 PM EDT [facility] HDL 56 >=40 mg/dL LAB CHEMISTRY METHOD 12/15/2024 5:06 PM EDT [facility] LDL Calculated 95 0 - 100 mg/dL LAB CHEMISTRY METHOD 12/15/2024 5:06 PM EDT [facility] VLDL Cholesterol Luigi 26 mg/dL LAB CHEMISTRY METHOD 12/15/2024 5:06 PM EDT [facility] Non HDL Chol. (LDL+VLDL) 121 <145 mg/dL LAB CHEMISTRY METHOD 12/15/2024 5:06 PM EDT [facility] Chol/HDL Ratio 3.2 0.0 - 4.4 LAB CHEMISTRY METHOD 12/15/2024 5:06 PM EDT [facility] Blood Venous blood specimen / Unknown Venipuncture / Unknown 12/15/2024 1:59 PM EDT 12/15/2024 1:59 PM EDT Hosea CERVANTES LAB BLOOD ORDERABLES Tanisha l Result [facility] [address] [place] [address], [place] [phone] * (ABNORMAL) Comprehensive metabolic panel (12/15/2024 1:59 PM EDT) Sodium 136 133 - 145 mmol/L LAB CHEMISTRY METHOD 12/15/2024 5:[address] [facility] Potassium 4.3 3.5 - 5.5 mmol/L LAB CHEMISTRY METHOD 12/15/2024 5:[address] [facility] Chloride 104 96 - 110 mmol/L LAB CHEMISTRY METHOD 12/15/2024 5:[address] [facility] CO2 30 21 - 32 mmol/L LAB CHEMISTRY METHOD 12/15/2024 5:[address] [facility] Anion Gap 2(L) 3 - 11 LAB CHEMISTRY METHOD 12/15/2024 5:[address] [facility] Glucose 81 70 - 100 mg/dL LAB CHEMISTRY METHOD 12/15/2024 5:[address] [facility] BUN 12 5 - 25 mg/dL LAB CHEMISTRY METHOD 12/15/2024 5:[address] [facility] Creatinine 1.04 0.50 - 1.10 mg/dL LAB CHEMISTRY METHOD 12/15/2024 5:[address] [facility] eGFR 61 >=60 mL/min/1. 73m2 LAB CHEMISTRY METHOD 12/15/2024 5:[address] [facility] Comment:Calculation based on the Chronic Kidney Disease Epidemiology Collaboration (CKD-EPI) equation refit without adjustment for race. BUN/Creatinine Ratio 11.5 LAB CHEMISTRY METHOD 12/15/2024 5:[address] [facility] Calcium 9.3 8.5 - 10.5 mg/dL LAB CHEMISTRY METHOD 12/15/2024 5:[address] [facility] AST (SGOT) 11 10 - 42 unit/L LAB CHEMISTRY METHOD 12/15/2024 5:[address] [facility] ALT (SGPT) 15 10 - 60 unit/L LAB CHEMISTRY METHOD 12/15/2024 5:07 PM EDT [facility] Alkaline Phosphatase 130(H) 42 - 121 unit/L LAB CHEMISTRY METHOD 12/15/2024 5:07 PM EDT [facility] Total Protein 7.0 6.0 - 8.0 g/dL LAB CHEMISTRY METHOD 12/15/2024 5:07 PM EDT [facility] Albumin 3.8 3.2 - 5.0 g/dL LAB CHEMISTRY METHOD 12/15/2024 5:07 PM EDT [facility] Total Bilirubin 0.4 0.0 - 1.4 mg/dL LAB CHEMISTRY METHOD 12/15/2024 5:07 PM EDT [facility] Blood Venous blood specimen / Unknown Venipuncture / Unknown 12/15/2024 1:59 PM EDT 12/15/2024 1:59 PM EDT Hosea CERVANTES LAB BLOOD ORDERABLES Tanisha l Result [facility] [address] [place] [address], * Depression Screening (11/25/2023) Depression Screening abstracted [...] * Cervical Cancer Screening: HPV (07/05/2022) Pathologist [facility] Cervical Cancer Screening: HPV abstracted, negative Historical Provider HEALTH MAINTENANCE Final Result * Colonoscopy (02/03/2021) Pathologist [facility] Colonoscopy abstracted, no interpretation Anatomical Region Laterality Modality Other Historical Provider HEALTH MAINTENANCE Final Result * Hepatitis C Screening (06/05/2013) Pathologist [facility] Hepatitis C Screening abstracted Historical Provider HEALTH MAINTENANCE Final Result from Last 3 Months or Most Recently Relevant to Health Maintenance Insurance MEDIC[place] Care Teams Double Cut Off Saw Operator Relationship Specialty Start Date End Date Hosea Douglas PA [address] [place] [address] PCP - General Internal Medicine 02/01/21
--- OUTSIDE RECORDS SUMMARY | 2025-04-22 13:14 | XMS_ITS | Clinical Summary ---
Author Organization [facility] Address [address] [place] [address] Care Team Providers Care Manager Plumbing Name Role Phone Hosea Douglas PA-C Primary [...] age to complete this topic Care Teams Manager Plumbing Relationship Specialty Start Date End Date Hosea Douglas, JOSSEC PCP - General Medical Services 12/11/21
--- OUTSIDE RECORDS SUMMARY | 2025-04-22 13:14 | XMS_ITS | Data Portability ---
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 Name Role Phone NONE, LISTED Primary Care [...] - s/p left THR on 01/08/22 in [place] - surgical wound infection - possible prosthetic [...] - s/p left THR on 01/08/22 in [place] - surgical wound infection - possible prosthetic [...] auto diff 2021 022 [email or web address], [address] [place] [address], [address], 10:47:10 HbA1c (hemoglobi n A1c), blood 2021 022 [email or web address], [address] [place] [address], [address], 2 10:47:10 methicilli n resistant staphyloco ccus aureus, culture, nasal 2021 022 [email or web address], [address] [place] [address], [address], 2 10:47:10 type + screen, blood 2021 022 [email or web address], [address] [place] [address], [address], 2 10:47:10 CMP, serum or plasma 2021 022 JOSÉ MIGUEL [facility], [address] [place] [address], [address], 14:03:58 ESR (erythrocy te sedimentat ion rate), blood [address] [facility], [address] [place] [address], [address], 13:29:45 C-reactive protein, quantitati ve, serum or plasma 2021 [email or web address] [facility], [address] [place] [address], [address], 08:04:31 CBC w/ auto diff [address] [facility], [address] [place] [address], [address], 12:48:54 CMP, serum or plasma [address] [facility], [address] [place] [address], [address], 13:26:12 ESR (erythrocy te sedimentat ion rate), blood [address] [facility], [address] [place] [address], [address], 12:58:48 C-reactive protein, quantitati ve, serum or [email or web address] [address] [place] [address], [address], 07:18:26 Referral physical therapist referral 2021 [email or web address] Not available 11:50:50 Procedures None recorded. Surgeries total hip arthroplas ty, anterior approach (SURG) 2021 [email or web address] Not available 08:18:[address], hip, w/o contrast 2021 JOSÉ MIGUEL Not available 08/16/202 2 17:05:42 Medication Orders oxycodone 10 mg tablet 2021 022 JOSÉ MIGUEL [place], [place] - [id number], [address] [place], [address], 11:31:26 celecoxib 200 mg capsule 2021 022 [email or web address] [place], [place] - [id number], [address] [place], [address], 2 12:52:05 Patient TargetsNo targets recorded. Patient [...] X10_3 /uL 4.5-11 .0 normal Not Available [address] [address] [facility] [address], [place], [address] 02/15/2022 11:45:46 02/16/20 22 02/15/2022 COMPL ETE BLOOD COUNT AUTO DIFF red blood count 4.55 X10_6 /uL 3.70-5 .00 normal Not Available [facility] [address] [facility] [address], [place], [address] 02/15/2022 11:45:46 02/16/2002/15/2022 COMPL ETE BLOOD COUNT AUTO DIFF hemoglobin 12.5 g/dL 11.0-1 6.0 normal Not Available [facility] [address] [facility] [address], [place], [address] 02/15/2022 11:45:46 02/16/2002/15/2022 COMPL ETE BLOOD COUNT AUTO DIFF hematocrit 41.1 % 33.5-4 5.0 normal Not Available [facility] [address] [facility] [address], [place], [address] 02/15/2022 11:45:46 02/16/20 22 02/15/2022 COMPL ETE BLOOD COUNT AUTO DIFF mean corpuscular volume 90.3 fL 80.0-1 00.0 normal Not Available [facility] [address] [facility] [address], [place], [address] 02/15/2022 11:45:46 02/16/20 22 02/15/2022 COMPL ETE BLOOD COUNT AUTO DIFF mean corpuscular hemoglobin 27.5 pg 27.0-3 4.0 normal Not Available [facility] [address] [address], [place], [address] 02/15/2022 11:45:46 02/16/20 22 02/15/2022 COMPL ETE BLOOD COUNT AUTO DIFF mean corpuscular HGB conc 30.4 g/dL 31.0-3 6.0 low Not Available [facility] [address] [address], [place], [address] 02/15/2022 11:45:46 02/16/20 22 02/15/2022 COMPL ETE BLOOD COUNT AUTO DIFF red cell distribution width 15.0 % 11.5-1 5.0 normal Not Available [facility] [address] [address], [place], [address] 02/15/2022 11:45:46 02/16/20 22 02/15/2022 COMPL ETE BLOOD COUNT AUTO DIFF platelet count 323 X10_3 /uL 150-40 0 normal Not Available [facility] [address] [address], [place], [address] 02/15/2022 11:45:46 02/16/20 22 02/15/2022 COMPL ETE BLOOD COUNT AUTO DIFF immature granulocytes % (auto) 0.2 % Not Available [facility] [address] [facility] [address], [place], [address] 02/15/2022 11:45:46 02/16/20 22 02/15/2022 COMPL ETE BLOOD COUNT AUTO DIFF neutrophils % (auto) 42.5 % Not Available [facility] [address] [facility] [address], [place], [address] 02/15/2022 11:45:46 02/16/20 22 02/15/2022 COMPL ETE BLOOD COUNT AUTO DIFF lymphocytes % (auto) 43.3 % Not Available [facility] [address] [facility] [address], [place], [address] 02/15/2022 11:45:46 02/16/20 22 02/15/2022 COMPL ETE BLOOD COUNT AUTO DIFF monocytes % (auto) 9.8 % Not Available [facility] [address] [address], [place], [address] 02/15/2022 11:45:46 02/16/20 22 02/15/2022 COMPL ETE BLOOD COUNT AUTO DIFF eosinophils % (auto) 3.7 % Not Available [facility] [address] [address], [place], [address] 02/15/2022 11:45:46 02/16/20 22 02/15/2022 COMPL ETE BLOOD COUNT AUTO DIFF basophils % (auto) 0.5 % Not Available [address] [address], [place], [address] 02/15/2022 11:45:46 02/16/20 22 02/15/2022 COMPL ETE BLOOD COUNT AUTO DIFF immature granulocytes # (auto) 0.02 X10_3 /uL 0.00-0 .09 normal Not Available [address] [address], [place], [address] 02/15/2022 11:45:46 02/16/20 22 02/15/2022 COMPL ETE BLOOD COUNT AUTO DIFF neutrophils # (auto) 4.2 X10_3 /uL 1.5-7. 8 normal Not Available [address] [address], [place], [address] 02/15/2022 11:45:46 02/16/20 22 02/15/2022 COMPL ETE BLOOD COUNT AUTO DIFF lymphocytes # (auto) 4.3 X10_3 /uL 1.0-4. 8 normal Not Available [facility] [address] [facility] [address], [place], [address] 02/15/2022 11:45:46 02/16/20 22 02/15/2022 COMPL ETE BLOOD COUNT AUTO DIFF monocytes # (auto) 1.0 X10_3 /uL 0.0-0. 8 high Not Available [facility] [address] [address], [place], [address] 02/15/2022 11:45:46 02/16/20 22 02/15/2022 COMPL ETE BLOOD COUNT AUTO DIFF eosinophils # (auto) 0.4 X10_3 /uL 0.0-0. 5 normal Not Available [facility] [address] [address], [place], [address] 02/15/2022 11:45:46 02/16/20 22 02/15/2022 COMPL ETE BLOOD COUNT AUTO DIFF basophils # (auto) 0.1 X10_3 /uL 0.0-0. 2 normal Not Available [facility] [address] [address], [place], [address] 02/15/2022 11:45:46 02/16/20 22 02/15/2022 COMPL ETE BLOOD COUNT AUTO DIFF nucleated RBC% 0.0 /100_ WBC 0.0-0. 0 normal Not Available [facility] [address] [address], [place], [address] 02/15/2022 11:45:46 02/16/20 22 02/15/2022 ERYTH ROCYT E SEDIM ENTAT ION RATE erythrocyte sedimentatio n rate 34 mm/HR 0-30 high Not Available [facility] [address] [address], [place], [address] 02/15/2022 11:59:22 02/16/20 22 02/15/2022 COMPR EHENS PARMINDER METAB OLIC PANEL sodium 138 mmol/ L 137-14 6 normal Not Available [facility] [address] [address], [place], [address] 02/15/2022 12:02:00 02/16/20 22 02/15/2022 COMPR EHENS PARMINDER METAB OLIC PANEL potassium,K 4.0 mmol/ L 3.5-5. 3 normal Not Available [facility] [address] [address], [place], [address] 02/15/2022 12:02:00 02/16/20 22 02/15/2022 COMPR EHENS PARMINDER METAB OLIC PANEL chloride 101 mmol/ L 98-107 normal Not Available [facility] [address] [address], [place], [address] 02/15/2022 12:02:00 02/16/20 22 02/15/2022 COMPR EHENS PARMINDER METAB OLIC PANEL carbon dioxide 28 mmol/ L 23-32 normal Not Available [facility] [address], [place], [address] 02/15/2022 12:02:00 02/16/20 22 02/15/2022 COMPR EHENS PARMINDER METAB OLIC PANEL anion gap 9 mmol/ L 5-15 normal Not Available [facility] [address], [place], [address] 02/15/2022 12:02:00 02/16/20 22 02/15/2022 COMPR EHENS PARMINDER METAB OLIC PANEL blood urea nitrogen 4 mg/dL 5-25 low Not Available [facility] [address], [place], [address] 02/15/2022 12:02:00 02/16/20 22 02/15/2022 COMPR EHENS PARMINDER METAB OLIC PANEL creatinine 0.9 mg/dL 0.5-1. 1 normal Not Available [facility] [address], [place], [address] 02/15/2022 12:02:00 02/16/20 22 02/15/2022 COMPR EHENS PARMINDER METAB OLIC PANEL estimated GFR ( nikhil 81 >=60 mL/min / Not Available [facility] [address], [place], [address] 02/15/2022 12:02:00 02/16/20 22 02/15/2022 COMPR EHENS PARMINDER METAB OLIC PANEL estimated GFR (non afr nikhil 69 >=60 mL/min / Not Available [facility] [address], [place], [address] 02/15/2022 12:02:00 02/16/20 22 02/15/2022 COMPR EHENS PARMINDER METAB OLIC PANEL BUN/creatini ne ratio 4.4 10.0-2 0.0 low Not Available [facility] [address], [place], [address] 02/15/2022 12:02:00 02/16/20 22 02/15/2022 COMPR EHENS PARMINDER METAB OLIC PANEL glucose 91 mg/dL <100 -fasti ng normal Not Available [facility] [address], [place], [address] 02/15/2022 12:02:00 05/19/02/15/2022 COMPR EHENS PARMINDER METAB OLIC PANEL calcium 9.0 mg/dL 8.6-10 .3 normal Not Available [facility] [address] [place] [address], [place], [address] 02/15/2022 12:02:00 02/16/20 22 02/15/2022 COMPR EHENS PARMINDER METAB OLIC PANEL bilirubin,to gab < 0.2 mg/dL <1.2 Not Available [facility] [address] [address], [place], [address] 02/15/2022 12:02:00 02/16/20 22 02/15/2022 COMPR EHENS PARMINDER METAB OLIC PANEL aspartate amino transferase 17 U/L 15-41 normal Not Available [facility] [address] [address], [place], [address] 02/15/2022 12:02:00 02/16/20 22 02/15/2022 COMPR EHENS PARMINDER METAB OLIC PANEL alanine aminotransfe rase 12 U/L 14-54 low Not Available [facility] [address] [address], [place], [address] 02/15/2022 12:02:00 02/16/20 22 02/15/2022 COMPR EHENS PARMINDER METAB OLIC PANEL total protein 7.2 g/dL 6.4-8. 3 normal Not Available [facility] [address] [address], [place], [address] 02/15/2022 12:02:00 02/16/20 22 02/15/2022 COMPR EHENS PARMINDER METAB OLIC PANEL albumin level 3.9 g/dL 4.0-5. 0 low Not Available [facility] [address] [facility] [address], [place], [address] 02/15/2022 12:02:00 02/16/20 22 02/15/2022 COMPR EHENS PARMINDER METAB OLIC PANEL albumin/glob ulin ratio 1.2 1.0-2. 6 normal Not Available [facility] [address] [facility] [address], [place], [address] 02/15/2022 12:02:00 02/16/20 22 02/15/2022 COMPR EHENS PARMINDER METAB OLIC PANEL alkaline phosphatase 202 U/L 35-104 high Not Available [facility] [address] [facility] [address], [place], [address] 02/15/2022 12:02:00 02/16/20 22 02/15/2022 C-DILIA CTIVE PROTE IN C-reactive protein 1.59 mg/dL <0.50 high Not Available [facility] [address] [facility] [address], [place], [address] 02/15/2022 12:02:01 02/20/20 22 02/19/2022 SURGI SOFY PATHO LOGY results Run: 02/22 1047 Speci men Inqui ry ----- ----- ----- ----- ----- ----- ----- ----- ----- ----- ----- ----- ----- ----- ----- ---- Name: ZEYAD MANCILLA PE NNY M Age/S ex: 61/F Locat ion: M7.EM Acct: [id number] Unit: [id number] Statu s: ADM IN Room/ Bed: EM772 [...] /6 Fro[place] [address] /3 56007 Level 4 - Gross and Micro scopi c/3 Kala d (sign ature on file) _ Ean andersen MD 02/22 1047 ----- ----- ----- ----- ----- ----- ----- ----- ----- ----- ----- ----- ----- ----- ----- ---- END OF REPOR T Not Available [facility] [address], [place], [address] 02/22/2022 10:48:07 03/07/20 22 03/07/2022 COMPL ETE BLOOD COUNT AUTO DIFF white blood count 10.2 X10_3 /uL 4.5-11 .0 normal Not Available [facility] [address], [place], [address] 03/07/2022 12:48:54 03/07/20 22 03/07/2022 COMPL ETE BLOOD COUNT AUTO DIFF red blood count 4.42 X10_6 /uL 3.70-5 .00 normal Not Available [facility] [address], [place], [address] 03/07/2022 12:48:54 03/07/20 22 03/07/2022 COMPL ETE BLOOD COUNT AUTO DIFF hemoglobin 12.0 g/dL 11.0-1 6.0 normal Not Available [facility] [address], [place], [address] 03/07/2022 12:48:54 03/07/20 22 03/07/2022 COMPL ETE BLOOD COUNT AUTO DIFF hematocrit 39.0 % 33.5-4 5.0 normal Not Available [facility] [address] [address], [place], [address] 03/07/2022 12:48:54 03/07/20 22 03/07/2022 COMPL ETE BLOOD COUNT AUTO DIFF mean corpuscular volume 88.2 fL 80.0-1 00.0 normal Not Available [address] [address], [place], [address] 03/07/2022 12:48:54 03/07/20 22 03/07/2022 COMPL ETE BLOOD COUNT AUTO DIFF mean corpuscular hemoglobin 27.1 pg 27.0-3 4.0 normal Not Available [address] [address], [place], [address] 03/07/2022 12:48:54 03/07/20 22 03/07/2022 COMPL ETE BLOOD COUNT AUTO DIFF mean corpuscular HGB conc 30.8 g/dL 31.0-3 6.0 low Not Available [address] [address], [place], [address] 03/07/2022 12:48:54 03/07/20 22 03/07/2022 COMPL ETE BLOOD COUNT AUTO DIFF red cell distribution width 14.3 % 11.5-1 5.0 normal Not Available [address] [address], [place], [address] 03/07/2022 12:48:54 03/07/20 22 03/07/2022 COMPL ETE BLOOD COUNT AUTO DIFF platelet count 371 X10_3 /uL 150-40 0 normal Not Available [facility] [address] [address], [place], [address] 03/07/2022 12:48:54 03/07/20 22 03/07/2022 COMPL ETE BLOOD COUNT AUTO DIFF immature granulocytes % (auto) 0.2 % Not Available [address] [address], [place], [address] 03/07/2022 12:48:54 03/07/20 22 03/07/2022 COMPL ETE BLOOD COUNT AUTO DIFF neutrophils % (auto) 42.1 % Not Available [address] [address], [place], [address] 03/07/2022 12:48:54 03/07/20 22 03/07/2022 COMPL ETE BLOOD COUNT AUTO DIFF lymphocytes % (auto) 43.8 % Not Available [facility] [address] [address], [place], [address] 03/07/2022 12:48:54 03/07/20 22 03/07/2022 COMPL ETE BLOOD COUNT AUTO DIFF monocytes % (auto) 8.0 % Not Available [address] [address], [place], [address] 03/07/2022 12:48:54 03/07/20 22 03/07/2022 COMPL ETE BLOOD COUNT AUTO DIFF eosinophils % (auto) 5.0 % Not Available [address] [address], [place], [address] 03/07/2022 12:48:54 03/07/20 22 03/07/2022 COMPL ETE BLOOD COUNT AUTO DIFF basophils % (auto) 0.9 % Not Available [address] [address], [place], [address] 03/07/2022 12:48:54 03/07/20 22 03/07/2022 COMPL ETE BLOOD COUNT AUTO DIFF immature granulocytes # (auto) 0.02 X10_3 /uL 0.00-0 .09 normal Not Available [facility] [address] [address], [place], [address] 03/07/2022 12:48:54 03/07/20 22 03/07/2022 COMPL ETE BLOOD COUNT AUTO DIFF neutrophils # (auto) 4.3 X10_3 /uL 1.5-7. 8 normal Not Available [facility] [address] [address], [place], [address] 03/07/2022 12:48:54 03/07/20 22 03/07/2022 COMPL ETE BLOOD COUNT AUTO DIFF lymphocytes # (auto) 4.5 X10_3 /uL 1.0-4. 8 normal Not Available [facility] [address] [address], [place], [address] 03/07/2022 12:48:54 03/07/20 22 03/07/2022 COMPL ETE BLOOD COUNT AUTO DIFF monocytes # (auto) 0.8 X10_3 /uL 0.0-0. 8 normal Not Available [address] [address], [place], [address] 03/07/2022 12:48:54 03/07/20 22 03/07/2022 COMPL ETE BLOOD COUNT AUTO DIFF eosinophils # (auto) 0.5 X10_3 /uL 0.0-0. 5 normal Not Available [address] [address], [place], [address] 03/07/2022 12:48:54 03/07/20 22 03/07/2022 COMPL ETE BLOOD COUNT AUTO DIFF basophils # (auto) 0.1 X10_3 /uL 0.0-0. 2 normal Not Available [address] [address], [place], [address] 03/07/2022 12:48:54 03/07/20 22 03/07/2022 COMPL ETE BLOOD COUNT AUTO DIFF nucleated RBC% 0.0 /100_ WBC 0.0-0. 0 normal Not Available [address] [address], [place], [address] 03/07/2022 12:48:54 03/07/20 22 03/07/2022 ERYTH ROCYT E SEDIM ENTAT ION RATE erythrocyte sedimentatio n rate 71 mm/HR 0-30 high Not Available [address] [address], [place], [address] 03/07/2022 12:58:48 03/07/20 22 03/07/2022 COMPR EHENS PARMINDER METAB OLIC PANEL sodium 137 mmol/ L 137-14 6 normal Not Available [address] [address], [place], [address] 03/07/2022 13:26:12 03/07/20 22 03/07/2022 COMPR EHENS PARMINDER METAB OLIC PANEL potassium,K 4.0 mmol/ L 3.5-5. 3 normal Not Available [address] [address], [place], [address] 03/07/2022 13:26:12 03/07/20 22 03/07/2022 COMPR EHENS PARMINDER METAB OLIC PANEL chloride 100 mmol/ L 98-107 normal Not Available [address] [address], [place], [address] 03/07/2022 13:26:12 03/07/20 22 03/07/2022 COMPR EHENS PARMINDER METAB OLIC PANEL carbon dioxide 27 mmol/ L 23-32 normal Not Available [facility] [address] [facility] [address], [place], [address] 03/07/2022 13:26:12 03/07/20 22 03/07/2022 COMPR EHENS PARMINDER METAB OLIC PANEL anion gap 10 mmol/ L 5-15 normal Not Available [facility] [address] [facility] [address], [place], [address] 03/07/2022 13:26:12 03/07/20 22 03/07/2022 COMPR EHENS PARMINDER METAB OLIC PANEL blood urea nitrogen 6 mg/dL 5-25 normal Not Available [facility] [address] [facility] [address], [place], [address] 03/07/2022 13:26:12 03/07/20 22 03/07/2022 COMPR EHENS PARMINDER METAB OLIC PANEL creatinine 0.9 mg/dL 0.5-1. 1 normal Not Available [facility] [address] [facility] [address], [place], [address] 03/07/2022 13:26:12 03/07/20 22 03/07/2022 COMPR EHENS PARMINDER METAB OLIC PANEL estimated GFR ( nikhil 81 >=60 mL/min / Not Available [facility] [address] [facility] [address], [place], [address] 03/07/2022 13:26:12 03/07/20 22 03/07/2022 COMPR EHENS PARMINDER METAB OLIC PANEL estimated GFR (non afr nikhil 69 >=60 mL/min / Not Available [facility] [address] [facility] [address], [place], [address] 03/07/2022 13:26:12 03/07/20 22 03/07/2022 COMPR EHENS PARMINDER METAB OLIC PANEL BUN/creatini ne ratio 6.7 10.0-2 0.0 low Not Available [facility] [address] [facility] [address], [place], [address] 03/07/2022 13:26:12 03/07/20 22 03/07/2022 COMPR EHENS PARMINDER METAB OLIC PANEL glucose 95 mg/dL <100 -fasti ng normal Not Available [facility] [address] [facility] [address], [place], [address] 03/07/2022 13:26:12 03/07/20 22 03/07/2022 COMPR EHENS PARMINDER METAB OLIC PANEL calcium 9.2 mg/dL 8.6-10 .3 normal Not Available [facility] [address] [address], [place], [address] 03/07/2022 13:26:12 03/07/20 22 03/07/2022 COMPR EHENS PARMINDER METAB OLIC PANEL bilirubin,to gab < 0.2 mg/dL <1.2 Not Available [facility] [address] [address], [place], [address] 03/07/2022 13:26:12 03/07/20 22 03/07/2022 COMPR EHENS PARMINDER METAB OLIC PANEL aspartate amino transferase 16 U/L 15-41 normal Not Available [facility] [address] [address], [place], [address] 03/07/2022 13:26:12 03/07/20 22 03/07/2022 COMPR EHENS PARMINDER METAB OLIC PANEL alanine aminotransfe rase < 5 U/L 14-54 low Not Available [facility] [address] [address], [place], [address] 03/07/2022 13:26:12 03/07/20 22 03/07/2022 COMPR EHENS PARMINDER METAB OLIC PANEL total protein 7.3 g/dL 6.4-8. 3 normal Not Available [facility] [address] [address], [place], [address] 03/07/2022 13:26:12 03/07/20 22 03/07/2022 COMPR EHENS PARMINDER METAB OLIC PANEL albumin level 4.0 g/dL 4.0-5. 0 normal Not Available [facility] [address] [address], [place], [address] 03/07/2022 13:26:12 03/07/20 22 03/07/2022 COMPR EHENS PARMINDER METAB OLIC PANEL albumin/glob ulin ratio 1.2 1.0-2. 6 normal Not Available [facility] [address] [facility] [address], [place], [address] 03/07/2022 13:26:12 03/07/20 22 03/07/2022 COMPR EHENS PARMINDER METAB OLIC PANEL alkaline phosphatase 182 U/L 35-104 high Not Available [facility] [address] [facility] [address], [place], [address] 03/07/2022 13:26:12 03/07/20 22 03/07/2022 C-DILIA CTIVE PROTE IN C-reactive protein 1.55 mg/dL <0.50 high Not Available [facility] [address] [facility] [address], [place], [address] 03/07/2022 13:26:13 05/14/20 22 05/14/2022 TYPE AND PETER Lorenzo BBCarina report Run: 05/14 1319 Speci men Inqui ry ----- ----- ----- ----- ----- ----- ----- ----- ----- ----- ----- ----- ----- ----- ----- ---- Name: FIONA ROWLEY M Age/S ex: 61/F Locat ion: PAT.Dewayne Caceres Acct: [id number] Unit: [id number] Statu s: PRE REF Room/ Bed: Re05/14 Disch : Att Dr: Amber cadet MD ----- ----- ----- ----- ----- ----- ----- ----- ----- ----- ----- ----- ----- ----- ----- ---- Blood Type CELI WILLARD Ab Peter lorenzo (Gel) CELI WILLARD ----- ----- ----- ----- ----- ----- ----- ----- ----- ----- ----- ----- ----- ----- ----- ---- END OF REPOR T Not Available [facility] [address] [facility] [address], [place], [address] 05/14/2022 13:19:42 05/14/2005/14/2022 ANNE Goodman ABO/R H TYPE [facility] report Run: 05/14 1319 Speci men Inqui ry ----- ----- ----- ----- ----- ----- ----- ----- ----- ----- ----- ----- ----- ----- ----- ---- Name: ZEYAD FIONA MANCILLA Age/S ex: 61/F Locat ion: PAT.E M Acct: [id number] Unit: [id number] Statu s: PRE REF Room/ Bed: Re05/14 Disch : Att Dr: Amber cadet MD ----- ----- ----- ----- ----- ----- ----- ----- ----- ----- ----- ----- ----- ----- ----- ---- SATURNINO SHANEED TO BE DRAWN ON DOS ----- ----- ----- ----- ----- ----- ----- ----- ----- ----- ----- ----- ----- ----- ----- ---- END OF REPOR T Not Available [facility] [address] [facility] [address], [place], [address] 05/14/2022 13:19:43 05/14/20 22 05/14/2022 ERYTH ROCYT E SEDIM ENTAT ION RATE erythrocyte sedimentatio n rate 66 mm/HR 0-30 high Not Available [facility] [address] [facility] [address], [place], [address] 05/14/2022 13:29:45 05/14/20 22 05/14/2022 HEMOG LOBIN A1C hemoglobin A1C 5.8 4.3-5. 9 normal Not Available [facility] [address] [facility] [address], [place], [address] 05/14/2022 13:32:47 05/14/20 22 05/14/2022 HEMOG LOBIN A1C estimated average glucose 120 mg/dL Not Available [facility] [address] [facility] [address], [place], [address] 05/14/2022 13:32:47 05/14/20 22 05/14/2022 TYPE AND SCREDewayne Lorenzo BBK report Run: 05/14 1400 Speci men Inqui ry ----- ----- ----- ----- ----- ----- ----- ----- ----- ----- ----- ----- ----- ----- ----- ---- Name: FIONA ROWLEYY M Age/S ex: 61/F Locat ion: PAT.E M Acct: [id number] Unit: [id number] Statu s: PRE REF Room/ Bed: Re05/14 [...] ---- END OF REPOR T Not Available [facility] [address] [facility] [address], [place], [address] 05/14/2022 14:00:28 05/14/20 22 05/14/2022 C-DILIA CTIVE PROTE IN C-reactive protein 1.18 mg/dL <0.50 high Not Available [facility] [address] [facility] [address], [place], [address] 05/14/2022 14:03:29 05/14/20 22 05/14/2022 COMPR EHENS PARMINDER METAB OLIC PANEL sodium 141 mmol/ L 137-14 6 normal Not Available [facility] [address] [facility] [address], [place], [address] 05/14/2022 14:03:58 05/14/20 22 05/14/2022 COMPR EHENS PARMINDER METAB OLIC PANEL potassium,K 3.9 mmol/ L 3.5-5. 3 normal Not Available [facility] [address] [facility] [address], [place], [address] 05/14/2022 14:03:58 05/14/20 22 05/14/2022 COMPR EHENS PARMINDER METAB OLIC PANEL chloride 104 mmol/ L 98-107 normal Not Available [facility] [address] [facility] [address], [place], [address] 05/14/2022 14:03:58 05/14/20 22 05/14/2022 COMPR EHENS PARMINDER METAB OLIC PANEL carbon dioxide 29 mmol/ L 23-32 normal Not Available [facility] [address] [facility] [address], [place], [address] 05/14/2022 14:03:58 05/14/20 22 05/14/2022 COMPR EHENS PARMINDER METAB OLIC PANEL anion gap 8 mmol/ L 5-15 normal Not Available [facility] [address] [facility] [address], [place], [address] 05/14/2022 14:03:58 05/14/20 22 05/14/2022 COMPR EHENS PARMINDER METAB OLIC PANEL blood urea nitrogen 5 mg/dL 5-25 normal Not Available [facility] [address] [facility] [address], [place], [address] 05/14/2022 14:03:58 05/14/20 22 05/14/2022 COMPR EHENS PARMINDER METAB OLIC PANEL creatinine 0.9 mg/dL 0.5-1. 1 normal Not Available [facility] [address] [facility] [address], [place], [address] 05/14/2022 14:03:58 05/14/20 22 05/14/2022 COMPR EHENS PARMINDER METAB OLIC PANEL estimated GFR ( nikhil 81 >=60 mL/min / Not Available [facility] [address] [address], [place], [address] 05/14/2022 14:03:58 05/14/20 22 05/14/2022 COMPR EHENS PARMINDER METAB OLIC PANEL estimated GFR (non afr nikhil 69 >=60 mL/min / Not Available [facility] [address] [address], [place], [address] 05/14/2022 14:03:58 05/14/20 22 05/14/2022 COMPR EHENS PARMINDER METAB OLIC PANEL BUN/creatini ne ratio 5.6 10.0-2 0.0 low Not Available [facility] [address] [address], [place], [address] 05/14/2022 14:03:58 05/14/20 22 05/14/2022 COMPR EHENS PARMINDER METAB OLIC PANEL glucose 101 mg/dL <100 -fasti ng high Not Available [facility] [address] [address], [place], [address] 05/14/2022 14:03:58 05/14/20 22 05/14/2022 COMPR EHENS PARMINDER METAB OLIC PANEL calcium 9.4 mg/dL 8.6-10 .3 normal Not Available [facility] [address] [address], [place], [address] 05/14/2022 14:03:58 05/14/20 22 05/14/2022 COMPR EHENS PARMINDER METAB OLIC PANEL bilirubin,to gab < 0.2 mg/dL <1.2 Not Available [facility] [address] [address], [place], [address] 05/14/2022 14:03:58 05/14/20 22 05/14/2022 COMPR EHENS PARMINDER METAB OLIC PANEL aspartate amino transferase 23 U/L 15-41 normal Not Available [facility] [address] [address], [place], [address] 05/14/2022 14:03:58 05/14/20 22 05/14/2022 COMPR EHENS PARMINDER METAB OLIC PANEL alanine aminotransfe rase 13 U/L 14-54 low Not Available [facility] [address] [address], [place], [address] 05/14/2022 14:03:58 05/14/20 22 05/14/2022 COMPR EHENS PARMINDER METAB OLIC PANEL total protein 7.5 g/dL 6.4-8. 3 normal Not Available [facility] [address] [address], [place], [address] 05/14/2022 14:03:58 05/14/20 22 05/14/2022 COMPR EHENS PARMINDER METAB OLIC PANEL albumin level 4.2 g/dL 4.0-5. 0 normal Not Available [facility] [address] [address], [place], [address] 05/14/2022 14:03:58 05/14/20 22 05/14/2022 COMPR EHENS PARMINDER METAB OLIC PANEL albumin/glob ulin ratio 1.3 1.0-2. 6 normal Not Available [facility] [address] [address], [place], [address] 05/14/2022 14:03:58 05/14/20 22 05/14/2022 COMPR EHENS PARMINDER METAB OLIC PANEL alkaline phosphatase 162 U/L 35-104 high Not Available [facility] [address] [address], [place], [address] 05/14/2022 14:03:58 05/14/20 22 05/15/2022 MRSA/ MSSA PRE-O P (NARE S) MRSA/mssa pre-op (nares) No Methic illin Sensit parminder or Resist ant Staph aureus isolat ed. Not Available [facility] [address] [address], [place], [address] 05/15/2022 14:02:41 05/22/20 22 05/22/2022 SURGI SOFY PATHO LOGY results Run: 05/24 7535 Speci men Inqui ry ----- ----- ----- ----- ----- ----- ----- ----- ----- ----- ----- ----- ----- ----- ----- ---- Name: FIONA ROWLEY Age/S ex: 62/F Locat ion: PACU. EM Acct: [id number] Unit: [id number] Statu s: DIS IN Room/ Bed: PACU. [...] CPT Proce dures :[place] 64122 Hemat oxyli n + Eosin Stain /3 11240 Level 3 - Gross and Micro scopi c Kala d (sign ature on file) _ Josesito felder MD 05/24 1445 ----- ----- ----- ----- ----- ----- ----- ----- ----- ----- ----- ----- ----- ----- ----- ---- END OF REPOR T Not Available [facility] [address], [place], [address] 05/24/2022 14:45:34 02/17/20 22 02/16/2022 XR, hip, unila teral [facility] [address] [place], [place] [address] [phone] Patien t Name: NADIA MILLER Medica l Record #: [id number] Addres s: [address] [facility] t#: [id number] City/S [place]/Z ip: [place] [address]: Kate zayas PAC Phone: Insura nce: Medica re A&B /Ag e/Sex: 1959/6 0/F [facility] No PCC Admit/ Reg Date: Orderi sudheer Dr: Kate zayas, PAC Locati on: [facility] EM/ PCP: Pcp-No n StaffMd Date of Servic e: Order (s): XR hip LT min 2V CPT Code: 81184 Report Number : [id number] Reason for Exam: PAIN Pain [...] ed degene rative change s of the [place] right hip. Dictat ed By: Claribel jasso MD 1454 Signed By: Gene Lucas MD 1500 TD/TT: 1454 Tech: [id number] cc: LHELA; PCPNS* Kate Hatfield eux, PAC; Loreta [facility]drop [facility] [address], [place], [address] 02/20/2022 15:35:03 02/17/20 22 02/15/2022 XR, hip, unila teral , 2 or 3 view No observ ation record ed. [facility] Atention: Jethro [address] [facility], [place], [address], 02/20/2022 15:35:04 02/20/20 22 02/19/2022 XR, hip, unila teral , 1 view [facility] Medica l [facility] [address] [place] [address] Patien t Name: GISELLA BiagNADIAMaura Caceres Medica l Record #: [id number] Addres s: [address] [facility] Accoun t#: [id number] City/S mitchell/Z ip: [place] [address]: Elvia Martinez MD Phone: Insura nce: Medica re A&B /Ag e/Sex: 1959/6 0/F [facility] No PCC Admit/ Reg Date: Calii sudheer Johnson: Kate zayas, PAC Locati on: PACU.E M/PACU . PCP: Memo Nguyen Md Date of Servic e: Order (s): XR hip LT 1V CPT Code: 52560 Report Number : [id number] Reason for Exam: s/p L [...] zayas, PAC; Elvia Martinez MD; Loreta Waldrop [facility] [address] [facility] [address], [place], [address] 02/20/2022 15:35:04 02/20/20 22 02/19/2022 XR, hip, unila teral , 2 or 3 view No observ ation record ed. [facility] [address] [facility], [place], [address], 02/20/2022 15:35:05 03/09/20 22 03/09/2022 XR, hip + pelvi s, unila teral [facility] [address] [place] [address] Patien t Name: NADIA MILLER Medica l Record #: [id number] Addres s: [address] [facility] Accoun t#: [id number] City/[place] ip: [place] [address]: Kate zayas PAC Phone: Insura nce: Medica re A&B /Ag e/Sex: 1959/ [birth year]/F [facility] No PCC Admit/ Reg Date: Orderi ng Dr: Kate zayas, PAC Locati on: [facility] EM/ PCP: Pcp-No maura StaffMd Date of Servic e: Order (s): XR hip pelvis LT min 2V CPT Code: 04553 Report Number : [id number] Reason for Exam: HIP PAIN [...] PCPNS* Kate zayas, PAC; Dequan vuLoreta ryanne [facility] Rad [address], [place], [address] 03/13/2022 16:45:35 03/09/20 22 03/07/2022 XR, hip, unila teral , 2 or 3 view No observ ation record ed. [facility]: Jethro [address] [facility], [place], [address], 03/13/2022 16:45:35 05/15/2005/15/2022 CT, hip, w/o contr ast [facility] Medica l [facility] [address] [place] [address] Patien t Name: NADIA MILLER Morris Medica l Record #: [id number] Addres s: [address] [facility] Accoun t#: [id number] City/S mitchell/Z ip: [place] [address]: Rigo Kennedy PAC Phone: Insura nce: Medica re A&B /Ag e/Sex: 1959/ [birth year]/F [facility] No PCC Admit/ Reg Date: Orderi sudheer Dr: Rigo Kennedy, PAC Locati on: DI.[facility]E M/ PCP: Pcp-No n StaffMd Date of Servic e: Order (s): CT johanna hip RT wo contra st CPT Code: 48981 Report Number : [id number] Reason for Exam: OSTEOA RTHRIT [...] Norris i, MD 1704 TD/TT: 1658 Tech: [facility] 01 cc: GENTRY; PCPNS* PIERCE Guevara; Loreta Waldrop [facility] [address] [facility] [address], [place], [address] 05/16/2022 11:03:39 05/22/2005/22/2022 XR, hip, unila teral , 1 view [facility] [address] [place] [address] Patien t Name: ZEYADKarthik PRIYA BaigMaura Caceres Medica l Record #: [id number] Addres s: [address] [facility] Accoun t#: [id number] City/S mitchell/Z ip: [place] [address]: Elvia Martinez MD Phone: Insura nce: Medica re A&B /Ag e/Sex: 1959/ 1/F [facility] No PCC Admit/ Reg Date: Waldo willard Dr: Kate zayas PAC Locati on: PACU.E M/PACU . PCP: PcpHugo Nguyen Md Date of Servic e: Order (s): XR hip RT 1V CPT Code: 93617 Report Number : [id number] Reason for Exam: s/p R [...] zayas PAC; Elvia Martinez MD; Loreta Waldrop [facility] [address] [address], [place], [address] 06/05/2022 16:33:25 05/22/20 22 05/22/2022 XR, hip, unila teral No observ ation record ed. [facility] [address] [place] [address], [address], 06/07/2022 13:05:01 05/23/20 22 05/14/2022 EKG elect tayla jamison [facility] Medica [address] [address] Patien t Name: GISELLA BaigNADIAMaura Caceres Medica l Record #: [id number] Addres s: [address] [facility] Accoun t#: [id number] City/S [place]/Z ip: [place] [address]: Elvia Martinez MD Phone: Insura nce: Medica re A&B /Ag e/Sex: 1959/6 0/F [facility] No PCC Admit/ Reg Date: Orderi ng Dr: Elvia Martinez MD Locati on: PAT.EM / PCP: Pcp-No n Staff, Md Date of Servic e: Order (s): EKG Electr ocardi ogram CPT Code: 91294 Report Number : [id number] Reason for Exam: pre op Sinus rhythm , Regula r, HR 79 NORMAL AXIS AND INTERV ALS. Possib le inferi or port warden ior infarc t - age undete rmined Anteri or T wave abnorm ality is nonspe cific Compar erika Summar y: No serial compar erika made Summar y: Abnorm al ECG Dictat ed By: Jael Ji MD 110 Signed By: Marya Ji MD 1301 TD/TT: 1102 Tech: RAFAEL cc: PCPNS; SEAN * Elvia Martinez MD; Loreta Waldrop [facility] [address] [facility] [address], [place], [address] 06/07/2022 11:54:34 06/08/20 22 06/08/2022 XR, hip + pelvi s, bilat eral [facility] [address] [place], [place] [address] Patien t Name: NADIA MILLER Medica l Record #: [id number] Addres s: [address] [facility] Accoun t#: [id number] City/S mit[place]/Z ip: [place] [address]: Kate zayas PAC Phone: Insura nce: Medica re A&B /Ag e/Sex: 1959/6 1/F [facility] No PCC Admit/ Reg Date: Orderi sudheer Dr: Kate zayas, PAC Locati on: [facility] EM/ PCP: PcpHugo Nguyen Md Date of Servic e: Order (s): XR hip pelvis BI min 3V CPT Code: 85141 Report Number : [id number] Reason for Exam: HIP PAIN [...] MARGUERITE; PCPNS* Kate zayas, PAC; Loreta Waldrop [facility] Rad [address], [place], [address] 06/12/2022 14:34:30 06/08/20 22 06/06/2022 XR, hip, bilat eral No observ ation record ed. [facility] Atention: Jethro [address] [facility], [place], [address], 06/12/2022 14:34:55 Result Notes Documentation Provider Name and Address Organization Details Recorded Time Xr, Hip + Pelvis, Unilateral : [facility] [address] [place] [address] Patient Name: LAURA HICKMAN Medical Record#: [id number] Address: [address] [place] [address] City/State/Zip: [place] [address]: Kate Young PAC Insurance: Medicare A&B /Age/Sex: 1960/61/F [facility] No PCC Admit/Reg Date: 03/06/[address]: Kate Young, PAC Location: .CEM/ PCP: Pcp-Non StaffMd Date of Service: 03/07/22 Order (s): XR hip pelvis LT min 2V CPT Code: 17451 Report Number: [id number] Reason for Exam: HIP PAIN XR hip [...] MD 03/09/22 1029 TD/TT: 03/09/22 1021 Tech: [id number] cc: MARGUERITE; HELENA* Kate Young, PAC; Oracio Douglas, HELEN [address] [place] [address], [phone] 03/13/2022 16:45:35 Ct, Hip, W/o Contrast : [place] [address] Patient Name: LAURA HICKMAN Medical Record#: [id number] Address: [address] [place] [address] City/State/Zip: [place] [address]: Bindu Kennedy PAC Insurance: Medicare A&B /Age/Sex: 1960/61/F [facility] No PCC Admit/Reg Date: 05/14/[address]: Bindu Kennedy, PAC Location: DI.CTEM/ PCP: Pcp-Marie Nguyen Md Date of Service: 05/14/22 Order (s): CT johanna hip RT wo contrast CPT Code: 71095 Report Number: [id number] Reason for Exam: OSTEOARTHRITIS OF RIGHT HIP [...] Kauffman MD 05/15/22 1705 TD/TT: 05/15/221658 Tech: [id number] cc: GENTRY; CHECONS* Bindu Kennedy, PIERCE; Oracio Douglas PA [address] [place] [address], [phone] 05/16/2022 11:03:39 Xr, Hip, Unilateral, 1 View : [place] [id number] Patient Name: LAURA HICKMAN Medical Record#: [id number] Address: [address] [place] [address] City/State/Zip: [place] [address]: Geovany Martinez MD Insurance: Medicare A&B /Age/Sex: 1960/62/F [facility] No PCC Admit/Reg Date: 05/22/[address]: PIERCE Johnson Location: PACU.EM/PACU.EM-11 PCP: Mike Nguyen Md Date of Service: 05/22/22 Order (s): XR hip RT 1V CPT Code: 05749 Report Number: [id number] Reason for Exam: s/p R ANNETTE XR [...] PAC; Geovany Martinez MD; Oracio Douglas PA [address] [place] [address], [phone], [facility] 06/05/2022 16:33:25 Xr, Hip + Pelvis, Bilateral : [facility] at [address] [address] Patient Name: LAURA HICKMAN Medical Record#: [id number] Address: [address] [place] [address] City/State/Zip: [place] [address]: Kate Young PAC Insurance: Medicare A&B /Age/Sex: 1960/62/F [facility] No PCC Admit/Reg Date: 06/06/[address]: PIERCE Johnson Location: [facility]/ PCP: Mike StaffMd Date of Service: 06/06/22 Order (s): XR hip pelvis BI min 3V CPT Code: 88172 Report Number: [id number] Reason for Exam: HIP PAIN Pain Frontal [...] Joy MD 06/08/221655 TD/TT: 06/08/22 165 Tech: [id number] cc: MARGUERITE; HELENA* Kate Young, PAC; Oracio Douglas PA [address] [place], [address], [facility] 06/12/2022 14:34:30 Procedures Surgical History Date Name Laterality Status Provider Name and Address Organization Details Recorded Time 2 TELEHEALTH VISIT completed Sophie Weathers MD [address] [facility], [place], [address], [facility] 04/03/2022 14:11:05 2 TELEHEALTH VISIT completed Patricia Amaro [facility] 03/06/2022 08:58:21 Imaging Results None recorded. 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 [id number] 7688015 T84.52XD [id number] HELEN JOHNSON SEM_[facility]OSP ORTHOPEDI CS OUT PT [address] [address] 03/07/2022 11:29:08 03/12/2022 07:42:34 Dehiscence of surgical wound 78463577 T81.30XA 2 weeks status post left hip [...] of total replacement of left hip joint 8206923997 339051 Z96.642 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 Pain of ri ght hip joint 9868748027 76916 M25.551 History of left hip replacement 6554860677 015167 Z96.642 Doing well status post I and D and head liner exchange with wound revision given postoperat parminder wound dehiscence . Most recent lab work reassuring . No issues with her incision. She is off antibiotic s. No reported fevers or chills or increasing pain. [id number] HELEN JOHNSON SEM_HOSP ORTHOPEDI CS OUT PT [address] [place] [address] 06/06/2022 10:23:14 06/07/2022 11:06:46 History of total replacement of right hip joint 2749978134 27660 Z96.641 Two weeks status post right anterior [...] recovery. Will follow-up in 6 weeks via [facility]. Health Concerns Section Related Observation LastModified by Organization Detai ls LastModified Time None Recorded Concern Status LastModified by Organization Details LastModified Time None Recorded Advance Directives Directive None Recorded Payers Insurance Date Sequence Insurance Name Policy Number Policy Gutiérrez Covered Member ID Gutiérrez Member ID Guarantor Name 07/22/2022 1 [place] B-[place] [employer] Laura Hickman [id number] Laura Hickman 07/22/2022 2 [place] [facility] Laura Hickman [id number] Laura Hickman Notes Date Note Type Note [...] a left hip arthroplasty on 01/08/2022 in [place]. Since the surgery, she has been having [...] gauze with no drainage. Sophie Weathers MD [address] [place] [address], [address], [facility] 03/06/2022 14:31:51 2 text/html Date of [...] postop exam with x-rays. HELEN JOHNSON [address] [place], [address], [facility] 03/07/2022 13:10:01 2 text/html The patient [...] rash, pruritus, diarrhea. Sophie Weathers MD [address] [place], [address], [facility] 04/03/2022 14:14:52 2 text/html This is a 61-year-old woman who is presenting today with right hip pain. She is known to Dr. Martinez status post left hip surgical wound I and D and head liner exchange for persistent drainage and wound dehiscence on 02/19/2022, original left total hip surgery on 01/08/22 in [place]. She reports that her left hip is [...] right hip replacement surgery. HELEN ZHU [address] [place], [address], [facility] 05/09/2022 16:41:47 2 text/html Date of [...] today for postop exam. HELEN JOHNSON [address] [place], [address], [facility] 06/06/2022 15:14:48 OBGyn Episode No OBEpisode recorded.
== END 2025-04-22 13:18 | disposition home or self-care (01) ==
LOC: HO.HOS 13:02
PROVIDERS: PCP Physician Assistant Medical; Visit Provider Orthopaedic Surgery
DX: M25.561 Pain in right knee (principal); M17.11 Unilateral primary osteoarthritis, right knee; M25.562 Pain in left knee
CPT/HCPCS: 99213

== ENCOUNTER → 2025-04-22 13:02 | Outpatient (BNVA) | payer MEDICAID, SELFPAY | PROVIDERS: PCP Physician Assistant Medical; Visit Provider Orthopaedic Surgery | DX: M25.561 Pain in right knee (principal); M25.562 Pain in left knee; M17.11 Unilateral primary osteoarthritis, right knee; Z96.652 Presence of left artificial knee joint | CPT/HCPCS: 99212 ==

== ENCOUNTER 2025-06-08 14:24 | Outpatient (AMB) | payer MEDICARE, MEDICAID, SELFPAY ==
--- OUTSIDE RECORDS SUMMARY | 2025-06-03 13:30 | XMS_ITS | Encounter Summary ---
Author Organization [facility] Address [address] [place] [address] Care Team Providers Care Forklift Material Handler Name Role Phone Hosea Douglas Primary Care Provider [phone] Reason for Visit * Reason Comments Foot Pain Lumbosacral radiculo keyla (Primary Dx); Pes planus of both feet; Arthritis of both feet; Hammertoes of both feet; Dermatophytosis Encounter Details Date Type Department Care Team ([facility] Contact Info) Description 06/03/2025 1:30 PM EDT Office Visit Orthopedic Surgery - [place] [address] [phone] Kamar Smith, DPMorris [address] [address] PVD (peripheral vascular disease) (CMS/HCC V24) (Primary Dx); Pain in toes of both feet; Arthritis of both feet; Dermatophytosis, nail Social History Tobacco Use Types Packs/Day Years Used Date Smoking Tobacco: Every Day Cigarettes 0.5 52 Started: 1972 Smokeless Tobacco: Never Alcohol Use [...] for your loved ones. For example, child nutrition manager or elderly care for an older adult? [...] as of this encounter Progress Notes * Kamar Smith DPM - 06/03/2025 1:30 PM EDT Referring MD: hawa Last PCP visit: 02/15/2025 IDENTIFIER: Marylou is a 65 y.o. year old female who presents for consultation. CC: Pain in feet HPI: 65-year-old female returns office chief complaint of bilateral foot pain. Patient notes that she has some diffuse tingling numbness within the feet from time to time. Patient also notes that she has been having some thickness return to the nail plates which can cause rubbing on adjacent digits and sores. Patient is here for evaluation treatment ROS: GENERAL: Pt denies nausea, fever, vomiting, chills, or shortness of breath. Pt in NAD. CARDIOLOGY: pt denies chest pain, palpitations LUNGS: pt denies shortness of breath MUSCULOSKELETAL: See HPI, otherwise no joint pain or swelling, back pain, or muscle pain. SKIN: see HPI, otherwise no lesions, rash or itching NEURO: No persistent headache, weakness or numbness The remainder of the review of systems is noncontributory PAST MEDICAL HISTORY: Patient Active Problem List Diagnosis Abdominal pain Anomalous atrioventricular excitation Asthma Atrial flutter ([facility]/HCC V24, CMS/HCC V28) Borderline abnormal TFTs Cervical polyp Colon polyp COPD (chronic obstructive pulmonary disease) (CMS/HCC V24, CMS/HCC V28) Essential hypertension Gait instability Hyperlipidemia Infection and inflammatory reaction due to internal left hip prosthesis, sequela Insomnia Knee pain Low back pain Lumbar spondylosis Major depression Migraine Pain due to left hip joint prosthesis (CMS/HCC V24) Paroxysmal atrial fibrillation (CMS/HCC V24, CMS/HCC V28) Patella, chondromalacia Postmenopausal bleeding Primary osteoarthritis of left knee Primary osteoarthritis of right hip Primary osteoarthritis of right knee Pulmonary nodule PVD (peripheral vascular disease) (CMS/HCC V24) Radiculitis, lumbosacral Syncope SOCIAL HISTORY: Social History Tobacco Use Smoking status: Every Day Current packs/day: 0.50 Average packs/day: 0.5 packs/day for 52.0 years (26.0 ttl pk-yrs) Types: Cigarettes Start date: 1972 Smokeless tobacco: Never Substance Use Topics Alcohol use: No ACTIVE MEDICATIONS: Outpatient Medications Marked as Taking for the 06/03/25 encounter (Office Visit) with Kamar Smith DPM Medication Sig Dispense Refill acyclovir (ZOVIRAX) 400 mg tablet Take 1 tablet (400 mg total) by mouth 2 (two) times a day. 180 tablet 3 albuterol 2.5 mg /3 mL (0.083 %) nebulizer solution Take 1 Vial by nebulization every 4 hours as needed for Wheezing, Shortness of Breath or Cough. albuterol HFA (PROAIR HFA ; PROVENTIL HFA ; VENTOLIN HFA) 90 mcg/actuation inhaler Inhale 2 Puffs into the lungs every 4 hours as needed for Cough or Wheezing. apixaban (Eliquis) 5 mg tablet TAKE 1 TABLET BY MOUTH two (2) times a day 180 tablet 0 buprenorphine (BUTRANS) 20 mcg/hour APPLY 1 PATCH TOPICALLY EACH WEEK buPROPion XL (WELLBUTRIN XL) 300 mg 24 hr tablet Take 1 tablet (300 mg total) by mouth 1 (one) timeeach day in the morning. celecoxib (CeleBREX) 200 mg capsule TAKE 1 CAPSULE BY MOUTH ONCE DAILY 30 capsule 5 Cerovite Senior tablet Take 1 tablet by mouth 1 (one) time each day. clonazePAM (KlonoPIN) 0.5 mg tablet TAKE 1 OR 2 TABLETS BY MOUTH EVERY MORNING diclofenac (VOLTAREN) 1 % topical gel Apply 4 g topically 4 times daily as needed for Other (arthritis pain). docusate sodium (COLACE) 100 mg capsule TAKE 1 CAPSULE BY MOUTH two (2) times a day 180 capsule 1 FeroSuL 325 mg (65 mg iron) tablet TAKE 1 TABLET BY MOUTH ONCE DAILY 90 tablet 1 fluticasone furoate (Arnuity Ellipta) 100 mcg/actuation blister with device inhaler INHALE 1 PUFF BY MOUTH INTO THE lungs ONCE DAILY fluticasone propionate (FLONASE) 50 mcg/actuation nasal spray Administer 2 sprays into each nostril1 (one) time each day. Shake gently. Before first use, prime pump. After use, clean tip and replacecap. 16 g 5 ipratropium (ATROVENT) 42 mcg (0.06 %) nasal spray Administer 2 sprays into each nostril 2 (two) times a day. 30 mL 3 lamoTRIgine (LaMICtal) 150 mg tablet Take 150 mg by mouth daily. lidocaine (LIDODERM) 5 % patch Apply 1 patch topically 1 (one) time each day. Apply to painful area12 hours per day, remove for 12 hours. 30 each 11 melatonin 3 mg tablet Take 1 tablet by mouth every evening multivitamin tablet Take 1 tablet by mouth 1 (one) time each day. 30 each 11 nitrofurantoin, macrocrystal-monohydrate, (MACROBID) 100 mg capsule Take 1 Capsule by mouth daily as needed (with sexual activity). omeprazole (PriLOSEC) [address] capsule TAKE 1 CAPSULE BY MOUTH ONCE DAILY 30 capsule 5 oxyCODONE (ROXICODONE) 10 mg immediate release tablet take 1 tablet by mouth two (2) times a day asneeded Oysco 500/D 500 mg-5 mcg (200 unit) per tablet TAKE 1 TABLET BY MOUTH ONCE DAILY 90 tablet 1 rosuvastatin (CRESTOR) 10 mg tablet TAKE 1 TABLET BY MOUTH ONCE DAILY 90 tablet 5 senna 8.6 mg tablet TAKE 1 TABLET BY MOUTH THREE TIMES WEEKLY 45 tablet 3 tiZANidine (ZANAFLEX) 4 mg tablet TAKE 1 TO 2 TABLETS BY MOUTH EVERY NIGHT AT BEDTIME traZODone (DESYREL) 100 mg tablet 2-3 tablets, Psychiatry UNABLE TO FIND Take 1 tablet by mouth 1 (one) time each day. Calcium Carb- Cholecalciferol (Calcium Plus Vitamin D) 500-5 MG-MCG Tab zolpidem (AMBIEN) 10 mg tablet Take 1 Tablet by mouth at bedtime as needed for Insomnia. Psychiatry ALLERGIES: Pravastatin PHYSICAL EXAM: There were no vitals taken for this visit. PODIATRIC EXAMINATION: GENERAL: Patient appears well nourished, with NAD. VASCULAR: Dorsalis pedis pulses are 2/4 bilaterally and Posterior tibial pulses are 2/4 bilaterally. Capillary filling time within normal limits the digits. No pallor on elevation or rubor on dependency. Positive hair growth. No varicosities. Denies rest pain or claudication pain. NEUROLOGICAL: Sharp/dull sensation intact, protective sensation intact on Mccleary. Tuberosity. Patient experiences peripheral neuropathies to the bilateral lower extremities. ORTHOPEDIC: Good muscle strength 5/5 of all flexors and extensors. Dorsi flexion of ankle ,10 degrees, plantar flexion WNL. No muscle atrophy. Patient has many arthritic changes to the tarsometatarsal joint bilaterally with increased contracture of the digits 2 through 5 bilaterally. Flexible flatfoot deformity with greater than 5 degrees eversion of the hindfoot on last calcaneal stance position. DERMATOLOGICAL:.No masses or skin lesions noted. Normal skin temperature, normal skin turgor. Nailselongated dystrophic discolored x10 with subungual debris. BIOMECHANICS: STJ ROM wnl, MTJ ROM wnl, 1st MPJ ROM wnl. IMPRESSION: 1. PVD (peripheral vascular disease) (CMS/[facility] V24) 2. Pain in toes of both feet 3. Arthritis of both feet 4. Dermatophytosis, nail PLAN: Pt was seen and examined, history reviewed. Patient understands that with the arthritic changes in the midfoot she needs to be using a supportive shoe as often as possible limit flareups Patient has finished her Lamisil treatment and is happy with the overall progress she has made. Patient does have some concerns with thickening of the nail to the great toes. Patient was educated that this could be within normal limits H Patient was educated that the tingling numbness may be coming from previous surgery or lower back complications. Patient encouraged to use topical analgesic to help with the sensation Nail debridement performed to nails 1-5 bilateral as nails were described to be causing pain and difficulty for walking while in shoegear at their previous length. They were debrided in thickness andlength, with no incident. Clinical evidence of mycosis is documented which required active treatment. Patient expressed immediate relief. Patient is to RTC in 9 weeks Kamar Smith DPM documented in this encounter Plan of Treatment Upcoming Encounters Date Type Department Care Team (Late st Contact Info) Description 06/18/2025 2:30 PM EDT Office Visit Adult Medicine [address] [phone] Hosea Douglas, HELEN [address] [place] [phone] 06/30/2025 10:00 AM EDT Consult Adult Medicine [address] [phone] Hosea Douglas PA [address] [place] [phone] 08/05/2025 2:15 PM EST Office Visit Orthopedic Surgery - [place] [address] [phone] Kamar Smith DPM [address] [phone] documented as of this encounter Visit Diagnoses Diagnosis PVD (peripheral vascular disease) (CMS/[facility] V24)- Primary Unspecified peripheral vascular disease Pain in toes of both feet Arthritis of both feet Dermatophytosis, nail Dermatophytosis of nail documented in this encounter Care Teams Forklift Material Handler Relationship Specialty Start Date End Date Hosea Douglas PA [address] [place] [address] PCP - General Internal Medicine 02/01/21 documented as of this encounter
--- NOTE | 2025-06-08 14:38 | MHC.OFFVIS ---
Vital Signs 06/08/25 14:41 Height 5 ft 3 in Weight 189 lb BMI 33.5 Intake Visit Reasons: 6WKPO: L TKA w/DR 03/15/25, Right knee pain Intake Note: Laura is a 65 year old female who presents with complaints of progressively worsening right knee pain. She did undergo left total knee replacement surgery on 03/15/2025. She reports mild intermittent discomfort in her left knee. She continues to go to physical therapy. Her right knee pain has gotten worse over the last few years in spite of continued non operative treatments. The patient has difficulty walking even short distances because of her right knee pain. At this point her right knee pain is interfering with her activities of daily living and her ability to sleep well through the night. The patient has tried Tylenol, anti-inflammatory medicines, physical therapy exercises and injections which gave her minimal relief. Allergies pravastatin Allergy (Mild, Verified 06/08/25 14:41) rash Medication List - Last Reconciled 06/08/25 by Richie Calero MD acetaminophen 650 mg (2 x 325 mg) PO Q6H PRN 30 days acyclovir 400 mg PO MOFR PRN albuterol sulfate 2.5 mg inhalation Q4H PRN albuterol sulfate 90 mcg/actuation (Ventolin HFA) 90 mcg inhalation Q4H PRN amoxicillin 2,000 mg (4 x 500 mg) PO ONCE 1 day apixaban (Eliquis) 5 mg PO BID bupropion HCl XL 300 mg PO DAILY celecoxib 200 mg PO BID 30 days celecoxib 200 mg PO BEDTIME clonazepam 0.5 mg PO DAILY docusate sodium 100 mg PO BID PRN ferrous sulfate (FeroSul) 325 mg PO DAILY gabapentin 100 mg PO BEDTIME 7 days lamotrigine 300 mg PO BEDTIME melatonin 3 mg PO BEDTIME dqaspbfz-qim-JH-lycopen-lutein 0.4 mg-300 mcg- 250 mcg (CertaVite Senior) 1 tab PO BEDTIME omeprazole 20 mg PO DAILY@0630 oxycodone 5 mg PO Q6H PRN 7 days rosuvastatin 10 mg PO BEDTIME sennosides (senna) 8.6 mg PO BID PRN sulfamethoxazole-trimethoprim 800-160 mg (Bactrim DS) 1 tab PO BID 30 days tizanidine 4 - 8 mg PO BEDTIME PRN trazodone 200 mg PO BEDTIME walker Folding front wheeled walker walker Folding front wheeled walker zolpidem 10 mg PO BEDTIME PFSH Medical History Depression Asthma Migraines PVD (peripheral vascular disease) Elevated cholesterol COPD (chronic obstructive pulmonary disease) HTN (hypertension) Arthritis GERD (gastroesophageal reflux disease) Paroxysmal atrial flutter Status post placement of implantable loop recorder WPW (Wqvvg-Ldqfgebkp-Pgadu syndrome) Surgical History Status post total left knee replacement (~03/15/25) History of hip surgery Hx of cholecystectomy History of cardiac radiofrequency ablation H/O colonoscopy History of hip surgery History of hip surgery History of back surgery Hx of neck surgery Family History Father HTN (hypertension) Mother HTN (hypertension) Social History Housing Other:: mobile home Are you a primary healthcare liaison to a significant other at home: No Do you presently have visiting nurse or other home services: Yes (INTERNAL AUDIT CONSULTANT) Patient Tobacco Use Status: Current everyday Tobacco user Tobacco use type: Cigarette Cigarettes Per Day: 4 Years Smoked: 47 service: No Current occupational status: disabled Current occupation: Right hand dominate Physical Exam Vital Signs: BMI result Body Mass Index 33.5 Const Other: Well-nourished well-developed very friendly female awake alert and oriented x3 in no acute distress Extrem Other: Left knee examination shows that the surgical incision is well healed, no erythema, range of motion from -3 degrees to 110 degrees, her patella tracks well Right knee examination shows a minimal effusion, palpable crepitus with range of motion, pain with range of motion, range of motion from -3 degrees to 115 degrees, no instability Results Reviewed Results Reviewed: X-rays of the patient's right knee show end-stage degenerative joint disease with grade 4 erqv-ap-nnuu arthritis, subchondral sclerosis, osteophyte formation, no acute bony abnormalities Assessment & Plan Assessment & Plan (1) Right knee pain: Code(s): M25.561 - Pain in right knee Category: Medical (2) Arthritis of right knee: Code(s): M17.11 - Unilateral primary osteoarthritis, right knee Category: Medical (3) Left knee pain: Code(s): M25.562 - Pain in left knee Category: Medical Plan Ms. Hickman presents with progressively worsening right knee pain due to end-stage degenerative joint disease. I had a lengthy discussion with the patient regarding the treatment options. At this point she has failed continued non operative treatments. The risks and benefits of right total knee replacement surgery were discussed at length with the patient. The patient wishes to proceed. I will see her back 1 week prior to her surgery to answer any final questions that she might have. Feel free to call me at any time should questions regarding her orthopedic management arise. I spent 20 minutes in reviewing the patient's records and imaging studies, seeing the patient and documenting in the medical record. Coding Level of Care Code Est Pt Level 3 (63325) Complex EM visit Add On G2211 Diagnoses Right knee pain M25.561 Arthritis of right knee M17.11 Left knee pain M25.562
[2025-06-08 14:41] VITALS: BMI 33.5
--- OUTSIDE RECORDS SUMMARY | 2025-06-08 16:59 | XMS_ITS | Clinical Summary ---
Author Organization [facility] Address [address] [place] [address] Care Team Providers Care Imcu Nurse Name Role Phone Hosea Douglas PA-C Primary [...] age to complete this topic Care Teams Imcu Nurse Relationship Specialty Start Date End Date Hosea Douglas PA-C PCP - General Medical Services 12/11/21
--- OUTSIDE RECORDS SUMMARY | 2025-06-08 16:59 | XMS_ITS | Clinical Summary ---
Author Organization [facility] [address] [place] [address] Address [address] [place] [address] Phone Care Team Providers Care Rn Unit Manager Name Role Phone Hosea Douglas Primary Care Provider [phone] Allergies Active Allergy Reactions Criticality Noted Date [...] Pain due to left hip joint prosthesis ([facility] V 24) 02/07/2023 Primary osteoarthritis [...] questions answered. Asthma 02/13/2022 Paroxysmal atrial fibrillation ([facility] V24, [facility] /[facility] V28) 02/13/2022 Primary osteoarthritis of [...] rpt colonoscopy in 3 years Atrial flutter ([facility] V24, [facility] V28) 2013 Overview (08/19/2024): Atrial [...] with Ansley Lobo PVD (peripheral vascular disease) ([facility] V24) 02/24/2013 COPD (chronic obstructive pu lmonary disease) ([facility] V24, [facility] V28) 10/28/2012 Insomnia 10/28/2012 Abdominal pain 07/24/2012 Knee pain 01/30/2010 Patella, chondromalacia 01/30/2010 Low back pain 01/13/2010 Radiculitis, lumbosacral 01/13/2010 Lumbar spondylosis 01/07/2010 Migraine 12/12/2007 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): Had open heart surgery Encounters Date Type Department Care Team Description 06/03/2025 1:30 PM EDT Office Visit Orthopedic Surgery - [address] [phone] Kamar Smith DPM PVD (peripheral vascular disease) ([facility] V24) (Primary Dx); Pain in toes of both feet; Arthritis of both feet; Dermatophytosis, nail 04/21/2025 Telephone Adult Medicine [address] [phone] Hosea Douglas PA 04/08/2025 Telephone Adult Medicine [address] [phone] Hosea Douglas, PA 03/08/2025 Telephone Adult Medicine [address] [phone] Hosea Douglas, PA from Last 3 Months Immunizations Name Administration [...] PROCEDURE: HISTORICAL TONSILLECTOMY OTHER SURGICAL HISTORY PROCEDURE: AR LIG/TRNSXJ FLP TUBE ABDL/VAG APPR UNI/BI OTHER SURGICAL HISTORY 08/2014 PROCEDURE: AR UNLISTED PROCEDURE SPINE; COMMENT: L4- L5 lumbar fusion COLONOSCOPY 04/17/2016 PROCEDURE: HISTORICAL COLONOSCOPY; COMMENT: 10 mm sigmoid colon polyp: Tubulovillous adenoma. OTHER SURGICAL HISTORY 03/2018 PROCEDURE: AR RMVL TOT DISC ARTHRP ANT 1 INTERSPACE CERVICAL; COMMENT: cer disckectomy C5- C7 OTHER SURGICAL HISTORY 01/08/2022 PROCEDURE: AR ANESTHESIA OPEN TOTAL HIP ARTHROPLASTY; COMMENT: dr. angel, done in [place] OTHER SURGICAL HISTORY 05/22/2022 Right PROCEDURE: AR ANESTHESIA OPEN TOTAL HIP ARTHROPLASTY; COMMENT: [facility] [...] s COPD (chronic obstructive pu lmonary disease) ([facility] V24, [facility] V28) 10/28/2012 DX:COPD (chronic o bstructive pulmonary disease) ([facility]) Insomnia 10/28/2012 DX:Insomnia PVD (peripheral vascular dis ease) ([facility] V24) 02/24/2013 DX:PVD (peripheral vascular disease) ([facility]) Major depression 02/24/2013 DX:Major depres jon Borderline abnormal TFTs 02/24/2013 DX:Bord jaime abnormal TFTs Need for hepatitis C screening test 02/24/2013 DX:Need for hepatitis C screening test Historical Medical DX 01/07/2010 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 For example, child and adolescent therapist or elderly care for an older adult? [...] 2:30 PM EDT Office Visit Adult Medicine [address] [phone] Hosea Douglas PA [address] [place] [phone] 06/30/2025 10:00 AM EDT Consult Adult Medicine [address] [phone] Hosea Douglas PA [address] [place] [phone] 08/05/2025 2:15 PM EST Office Visit Orthopedic Surgery - [address] [phone] Kamar Smith, DPM [address] [address] Health Maintenance Due Date Last Done Comments Zoster Vaccines (1 of 2) 2011 RSV Immunization Adult Patients (1 - Risk 60-74 years 1-dose series) 2021 HIV Screening 09/08/2022 Medicare Annual Wellness Visit 09/08/2022 Depression Screening 09/30/2024 11/25/2023 COVID-19 Vaccine ( season) 2025 02/21/2022, 04/21/2021, 04/06/2021, Additional history exists Influenza Vaccine (#1) 2025 , 07/02/2022, 09/14/2021, [...] Signed Date: 02/19/2025 05:47 ET Workstation ID: [id number] Transcribed By: Self Edit Transcribed Date: 02/19/2025 [...] Signed Date: 02/19/2025 05:47 ET Workstation ID: [id number] Transcribed By: Self Edit Transcribed Date: 02/19/2025 05:41 ET us Carol Leos MD [facility] [place] PROCEDURES Final Result * Lipid panel with reflex to direct LDL (12/15/2024 1:59 PM EDT) Cholesterol 177 0 - 200 mg/dL LAB CHEMISTRY METHOD 12/15/2024 5:06 PM EDT [facility] Triglycerides 130 0 - 150 mg/dL LAB CHEMISTRY METHOD 12/15/2024 5:06 PM EDT [facility] HDL 56 >=40 mg/dL LAB CHEMISTRY METHOD 12/15/2024 5:06 PM EDT [facility] LDL Calculated 95 0 - 100 mg/dL LAB CHEMISTRY METHOD 12/15/2024 5:06 PM EDT [facility] VLDL Cholesterol Luigi 26 mg/dL LAB CHEMISTRY METHOD 12/15/2024 5:06 PM [facility] Non HDL Chol. (LDL+VLDL) 121 <145 mg/dL LAB CHEMISTRY METHOD [facility] Chol/HDL Ratio 3.2 0.0 - 4.4 LAB CHEMISTRY METHOD 12/15/2024 5:06 PM [facility] Blood Venous blood specimen / Unknown Venipuncture / Unknown 12/15/2024 1:59 PM EDT 12/15/2024 1:59 PM EDT Hosea CERVANTES LAB BLOOD ORDERABLES Tanisha l Result [facility] [address] [place] [address], [place] [phone] * (ABNORMAL) Comprehensive metabolic panel (12/15/2024 1:59 PM EDT) Sodium 136 133 - 145 mmol/L LAB CHEMISTRY METHOD 12/15/2024 5:07 PM [facility] Potassium 4.3 3.5 - 5.5 mmol/L LAB CHEMISTRY METHOD 12/15/2024 5:07 PM [facility] Chloride 104 96 - 110 mmol/L LAB CHEMISTRY METHOD 12/15/2024 5:07 PM [facility] CO2 30 21 - 32 mmol/L LAB CHEMISTRY METHOD 12/15/2024 5:07 PM [facility] Anion Gap 2(L) 3 - 11 LAB CHEMISTRY METHOD 12/15/2024 5:07 PM [facility] Glucose 81 70 - 100 mg/dL LAB CHEMISTRY METHOD 12/15/2024 5:07 PM [facility] BUN 12 5 - 25 mg/dL LAB CHEMISTRY METHOD 12/15/2024 5:07 PM [facility] Creatinine 1.04 0.50 - 1.10 mg/dL LAB CHEMISTRY METHOD 12/15/2024 5:07 PM [facility] eGFR 61 >=60 mL/min/1. 73m2 LAB CHEMISTRY METHOD 12/15/2024 5:07 PM [facility] Comment:Calculation based on the Chronic Kidney Disease Epidemiology Collaboration (CKD-EPI) equation refit without adjustment for race. BUN/Creatinine Ratio 11.5 LAB CHEMISTRY METHOD 12/15/2024 5:07 PM [facility] Calcium 9.3 8.5 - 10.5 mg/dL LAB CHEMISTRY METHOD 12/15/2024 5:07 PM [facility] AST (SGOT) 11 10 - 42 unit/L LAB CHEMISTRY METHOD 12/15/2024 5:07 PM [facility] ALT (SGPT) 15 10 - 60 unit/L LAB CHEMISTRY METHOD 12/15/2024 5:07 PM [facility] Alkaline Phosphatase 130(H) 42 - 121 unit/L LAB CHEMISTRY METHOD 12/15/2024 5:07 PM [facility] Total Protein 7.0 6.0 - 8.0 g/dL LAB CHEMISTRY METHOD 12/15/2024 5:07 PM [facility] Albumin 3.8 3.2 - 5.0 g/dL LAB CHEMISTRY METHOD 12/15/2024 5:07 PM [facility] Total Bilirubin 0.4 0.0 - 1.4 mg/dL LAB CHEMISTRY METHOD 12/15/2024 5:07 PM [facility] Blood Venous blood specimen / Unknown Venipuncture / Unknown 12/15/2024 1:59 PM EDT 12/15/2024 1:59 PM EDT Hosea CERVANTES LAB BLOOD ORDERABLES Tanisha connie Result [facility] [address] [place] [address], [place] [phone] * Depression Screening (11/25/2023) Depression Screening abstracted [...] esult * Cervical Cancer Screening: HPV (07/05/2022) [facility] Cervical Cancer Screening: HPV abstracted, negative Result [facility] Provider HEALTH MAINTENANCE Final Result * Colonoscopy (02/03/2021) [facility] Colonoscopy abstracted, no interpretation Anatomical Region Laterality Modality Other Result [facility] Provider HEALTH MAINTENANCE Final Result * Hepatitis C Screening (06/05/2013) [facility] Hepatitis C Screening abstracted Result [facility] Provider HEALTH MAINTENANCE Final Result from Last 3 Months or Most Recently Relevant to Health Maintenance Insurance [place] Care Teams Rn Unit Manager Relationship Specialty Start Date End Date Hosea Douglas PA [address] [place] [id number] PCP - General Internal Medicine 02/01/21
== END 2025-06-08 14:54 | disposition home or self-care (01) ==
LOC: HO.HOS 14:25
PROVIDERS: PCP Physician Assistant Medical; Visit Provider Orthopaedic Surgery
DX: M25.561 Pain in right knee (principal); M17.11 Unilateral primary osteoarthritis, right knee; M25.562 Pain in left knee
CPT/HCPCS: 99213; G2211

== ENCOUNTER → 2025-06-08 14:24 | Outpatient (BNVA) | payer MEDICARE, MEDICAID, SELFPAY | PROVIDERS: PCP Physician Assistant Medical; Visit Provider Orthopaedic Surgery | DX: M25.561 Pain in right knee (principal); M17.11 Unilateral primary osteoarthritis, right knee; M25.562 Pain in left knee | CPT/HCPCS: 99212 ==

== ENCOUNTER → 2025-06-29 09:18 | Outpatient (BNVA) | payer MEDICARE, MEDICAID, SELFPAY | PROVIDERS: PCP Physician Assistant Medical | DX: Z01.818 Encounter for other preprocedural examination (principal) ==

== ENCOUNTER 2025-07-15 09:57 | Outpatient (AMB) | payer MEDICARE, MEDICAID, SELFPAY ==
--- NOTE | 2025-07-15 09:58 | A.OFFVIS_ITS ---
Vital Signs 07/15/25 09:59 Height 5 ft 3 in Weight 189 lb BMI 33.5 Intake Visit Reasons: Pre-Op: R TKA w/ 07/19/25 Intake Note: Laura is a 65 year old female who presents with complaints of progressively worsening right knee pain. She did undergo left total knee replacement surgery on 03/15/2025. She reports mild intermittent discomfort in her left knee. She continues to go to physical therapy. Her right knee pain has gotten worse over the last few years in spite of continued non operative treatments. The patient has difficulty walking even short distances because of her right knee pain. At this point her right knee pain is interfering with her activities of daily living and her ability to sleep well through the night. The patient has tried Tylenol, anti-inflammatory medicines, physical therapy exercises and injections which gave her minimal relief. Pain management agreement signed and reviewed. Allergies pravastatin Allergy (Mild, Verified 07/15/25 10:05) rash Medication List - Last Reviewed 07/15/25 by WILL Turner acetaminophen 650 mg (2 x 325 mg) PO Q6H PRN 30 days acyclovir 400 mg PO MOFR PRN albuterol sulfate 2.5 mg inhalation Q4H PRN albuterol sulfate 90 mcg/actuation (Ventolin HFA) 90 mcg inhalation Q4H PRN amoxicillin 2,000 mg (4 x 500 mg) PO ONCE 1 day apixaban (Eliquis) 5 mg PO BID bupropion HCl XL 300 mg PO DAILY celecoxib 200 mg PO QPM clonazepam 0.5 mg PO DAILY ferrous sulfate (FeroSul) 325 mg PO DAILY gabapentin 100 mg PO BEDTIME 7 days lamotrigine 300 mg PO BEDTIME melatonin 3 mg PO BEDTIME bmairioh-egb-OK-lycopen-lutein 0.4 mg-300 mcg- 250 mcg (CertaVite Senior) 1 tab PO BEDTIME omeprazole 20 mg PO DAILY@0630 oxycodone 5 mg PO Q12H PRN rosuvastatin 10 mg PO BEDTIME tizanidine 4 - 8 mg PO BEDTIME PRN trazodone 200 mg PO BEDTIME walker Folding front wheeled walker walker Folding front wheeled walker zolpidem 10 mg PO BEDTIME PFSH Medical History Depression Asthma Migraines PVD (peripheral vascular disease) Elevated cholesterol COPD (chronic obstructive pulmonary disease) HTN (hypertension) Arthritis GERD (gastroesophageal reflux disease) Paroxysmal atrial flutter Status post placement of implantable loop recorder WPW (Eegtm-Vnrwzlrnj-Bbauf syndrome) Surgical History Status post total left knee replacement (~03/15/25) History of hip surgery Hx of cholecystectomy History of cardiac radiofrequency ablation H/O colonoscopy History of hip surgery History of hip surgery History of back surgery Hx of neck surgery Family History Father HTN (hypertension) Mother HTN (hypertension) Social History Housing Other:: mobile home Are you a primary manager intensive care to a significant other at home: No Do you presently have 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) Patient Tobacco Use Status: Current everyday Tobacco user Tobacco use type: Cigarette Cigarettes Per Day: 5 Years Smoked: 47 Advance Directives Date on File: 03/17/25 service: No Current occupational status: disabled Current occupation: Right hand dominate Physical Exam Vital Signs: BMI result Body Mass Index 33.5 Const Other: Well-nourished well-developed very friendly female awake alert and oriented x3 in no acute distress Extrem Other: Right knee examination shows a minimal effusion, palpable crepitus with range of motion, pain with range of motion, range of motion from -3 degrees to 115 degrees, no instability Results Reviewed Results Reviewed: X-rays of the patient's right knee show end-stage degenerative joint disease with grade 4 [id number] arthritis, subchondral sclerosis, osteophyte formation, no acute bony abnormalities Assessment & Plan Assessment & Plan (1) Arthritis of right knee: Code(s): M17.11 - Unilateral primary osteoarthritis, right knee Category: Medical Plan Ms. Hickman presents with progressively worsening right knee pain due to end- stage degenerative joint disease. I had a lengthy discussion with the patient regarding the treatment options. At this point she has failed continued non operative treatments. The risks and benefits of right total knee replacement surgery were discussed at length with the patient. The patient wishes to proceed with surgery. director agricultural services will be consulted following her surgery for home physical therapy and nursing. The patient will follow-up as instructed. Feel free to call me at any time should questions regarding her orthopedic management arise. I spent 22 minutes in reviewing the patient's records and imaging studies, seeing the patient and documenting in the medical record. Orders: Orders Hemoglobin A1c Today Z01.818 - Encounter for other preprocedural examination Coding Level of Care Code Est Pt Level 3 (38971) Complex EM visit Add On G2211 Diagnoses Arthritis of right knee M17.11
[2025-07-15 09:59] VITALS: BMI 33.5
--- OUTSIDE RECORDS SUMMARY | 2025-07-15 11:46 | XMS_ITS | Clinical Summary ---
Author Organization [facility] Address [address] [place] [address] Care Team Providers Care Airline Security Representative Name Role Phone Hosea Douglas PA-C Primary [...] age to complete this topic Care Teams Airline Security Representative Relationship Specialty Start Date End Date Hosea Douglas PA-C PCP - General Medical Services 12/11/21
--- OUTSIDE RECORDS SUMMARY | 2025-07-15 11:46 | XMS_ITS | Encounter Summary ---
Author Organization [facility] Address [address] [place] [address] Care Team Providers Care Sweatband Separator Name Role Phone Hosea Douglas Primary Care Provider [phone] Encounter Details Date Type Department Care Team ([facility] Contact Info) Description 07/01/2025 Results Follow-Up Adult Medicine [facility] [address] [place], [place] [phone] Jayme Kenyon MD [address] [place], [place] Social History Tobacco Use Types Packs/Day Years Used Date Smoking Tobacco: Every Day Cigarettes 0.5 52.2 Started: 1972 Smokeless Tobacco: Never Alcohol Use [...] for your loved ones. For example, child welfare worker or elderly care for an older adult? [...] Date Recorded What is your living situation? Unrecognized valu e 12/02/2024 Comments No Sex and Gender Information Value Date Recorded Sex Assigned at Not on file Legal Sex Female 11:02 AM EST Gender Identity Not on file Sexual Orientation Not on file documented as of this encounter Plan of Treatment Upcoming Encounters Date Type Department Care Team (Late st Contact Info) Description 08/05/2025 2:15 PM EST Office Visit Orthopedic Surgery - [place] [address] [phone] Kamar Smith DPM [address] [address] documented as of this encounter Visit Diagnoses Not on filedocumented in this encounter Care Teams Sweatband Separator Relationship Specialty Start Date End Date Hosea Douglas PA [address] [place] [address] PCP - General Internal Medicine 02/01/21 documented as of this encounter
--- OUTSIDE RECORDS SUMMARY | 2025-07-15 11:46 | XMS_ITS | Encounter Summary ---
Author Organization [facility] Address [address] [place] [address] Care Team Providers Care Principal Scientist Name Role Phone Hosea Douglas Primary Care Provider [phone] Reason for Visit * Reason Onset Date Comments vna 07/13/2025 Encounter Details Date Type Department Care Team ([facility] Contact Info) Description 07/13/2025 Telephone Adult Medicine [address] [phone] Erasmo Jackson LPN Social History Tobacco Use Types Packs/Day Years [...] care for your loved ones. For example, residential child care counselor or elderly care for an older [...] as of this encounter Progress Notes * Erasmo Jackson LPN - 07/14/2025 9:17 AM EDT Vo given to Francie at [facility] * Jayme Kenyon MD - 07/13/2025 3:37 PM EDT Yes. Will sign * Erasmo Jackson LPN - 07/13/2025 3:02 PM EDT Mishel from [facility] called wanted to know if provider will sign orders for home care when patient come out of hospital Please review and advise for Morris Douglas PAC last OV 12/15/24 documented in this encounter Plan of Treatment Upcoming Encounters Date Type Department Care Team (Late st Contact Info) Description 08/05/2025 2:15 PM EST Office Visit Orthopedic Surgery - [place] [address] [phone] Kamar Smith DPM [address] [address] documented as of this encounter Visit Diagnoses Not on filedocumented in this encounter Care Teams Principal Scientist Relationship Specialty Start Date End Date Hosea Douglas PA [address] [place] [address] PCP - General Internal Medicine 02/01/21 documented as of this encounter
--- OUTSIDE RECORDS SUMMARY | 2025-07-15 11:46 | XMS_ITS | Encounter Summary ---
Author Organization [facility] Address [address] [place] [address] Care Team Providers Care Telephone Order Clerk Room Service Name Role Phone Brooks Douglas Primary Care Provider [phone] Reason for Visit * Reason Onset Date Comments Pre-op Exam 06/12/2025 Encounter Details Date Type Department Care Team ([facility] Contact Info) Description 06/12/2025 Telephone Adult Medicine [address] [phone] Brooks Douglas PA [address] [place] [phone] Social History Tobacco Use Types Packs/Day Years [...] your loved ones. For example, child and family services specialist or elderly care for an older adult? [...] as of this encounter Progress Notes * Ulisses Marie - 06/12/2025 1:42 PM EDT Patient has a pre op scheduled with brooks douglas , the provider is unavailable on the date of the appointment and needs to be rescheduled Patient previously had one scheduled on 06/30/25 but provider is unavailable on date View 05/12/25 encounter for more details Knee surgery Pre op documented in this encounter Plan of Treatment Upcoming Encounters Date Type Department Care Team (Late st Contact Info) Description 08/05/2025 2:15 PM EST Office Visit Orthopedic Surgery - [place] [address] [phone] Kamar Smith, ESSIE [address] [address] documented as of this encounter Visit Diagnoses Not on filedocumented in this encounter Care Teams Telephone Order Clerk Room Service Relationship Specialty Start Date End Date Brooks Douglas PA [address] [place] [address] PCP - General Internal Medicine 02/01/21 documented as of this encounter
--- OUTSIDE RECORDS SUMMARY | 2025-07-15 11:46 | XMS_ITS | Clinical Summary ---
Author Organization [facility] [address] [place] [address] Address [address] [place] [address] Phone Care Team Providers Care Nuclear Officer Name Role Phone Hosea Douglas Primary Care Provider [phone] Allergies Active Allergy Reactions Criticality Noted Date Comments Pravastatin 06/04/2014 Other Reaction(s): Other (See Comments) Skin rash Medications Cerovite Senior tablet Take 1 tablet by mouth 1 (one) time each day. 04/21/20 24 Active tiZANidine (ZANAFLEX) 4 mg tablet [...] BY MOUTH EVERY MORNING 03/31/20 24 Active albuterol HFA (PROAIR HFA ; [...] as needed for Other (arthritis pain). 12/29/19 Active traZODone (DESYREL) 100 mg tablet 2-3 tablets, Psychiatry 11/12/19 Active zolpidem (AMBIEN) 10 mg tablet Take 1 Tablet by mouth at bedtime as needed for Insomnia. Psychiatry 11/12/19 Active lamoTRIgine (LaMICtal) 150 mg tablet Take 150 mg by mouth daily. 09/04/20 Active Oysco 500/D 500 mg-5 mcg (200 unit) per tablet TAKE 1 TABLET BY MOUTH ONCE DAILY 90 tablet 1 10/01/19 25 Active acyclovir (ZOVIRAX) 400 mg tablet Take 1 tablet (400 mg total) by mouth 2 (two) times a day. 180 tablet 3 10/09/19 25 Active buPROPion XL (WELLBUTRIN XL) 300 mg 24 hr tablet Take 1 tablet (300 mg total) by mouth 1 (one) time each day in the morning. Active multivitamin tablet Take 1 tablet by mouth 1 (one) time each day. 30 each 12/16/19 25 2025 Active celecoxib (CeleBREX) 200 mg capsule TAKE 1 CAPSULE BY MOUTH ONCE DAILY 30 capsule 5 12/19/19 25 Active apixaban (Eliquis) 5 mg tablet TAKE 1 TABLET BY MOUTH two (2) times a day 180 tablet 12/19/19 Active ipratropium (ATROVENT) 42 mcg (0.06 %) [...] day 180 capsule 1 03/11/20 25 Active FeroSuL 325 mg (65 mg iron) tablet TAKE 1 TABLET BY MOUTH ONCE DAILY 90 tablet 1 06/09/20 25 Active nicotine (NICODERM CQ) 21 mg/24 hrIndications:T obacco dependency Place 1 patch on the skin 1 (one) time each day at the same time. 30 each 3 10/01/20 25 Active UNABLE TO FIND Take 1 tablet by mouth 1 (one) time each day. Calcium Carb-Cholecalci ferol (Calcium Plus Vitamin D) 500-5 MG-MCG Tab 07/02/20 24 2024 Discontinued nitrofurantoin, macrocrystal-mo nohydrate, (MACROBID) 100 mg capsule Take 1 Capsule by mouth daily as needed (with sexual activity). 04/13/20 24 2024 Discontinued oxyCODONE (ROXICODONE) 10 mg immediate release tablet take 1 tablet by mouth two (2) times a day as needed 12/11/19 25 2024 Discontinued lidocaine (LIDODERM) 5 % patchIndication s:Atrial flutter, unspecified type ([facility] V24, [facility] V28),Uncomplica koko asthma, unspecified asthma severity, unspecified whether persistent,Esse ntial hypertension,Ch ronic obstructive pulmonary disease with acute exacerbation ([facility] V24, [facility] V28) Apply 1 patch topically 1 (one) time each day. Apply to painful area 12 hours per day, remove for 12 hours. 30 each 12/16/192024 Discontinued fluticasone propionate (FLONASE) 50 mcg/actuation nasal spray Administer 2 sprays into each nostril 1 (one) time each day. Shake gently. Before first use, prime pump. After use, clean tip and replace cap. 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, sequela 02/07/2023 Pain due to left hip joint prosthesis ([facility] V 24) 02/07/2023 Primary osteoarthritis of left [...] with Ansley Lobo PVD (peripheral vascular disease) ([facility] V24) 02/24/2013 COPD (chronic obstructive pu lmonary disease) ([facility] V24, [facility] V28) 10/28/2012 Insomnia 10/28/2012 Abdominal pain 07/24/2012 Knee pain 01/30/2010 Patella, chondromalacia 01/30/2010 Low back pain 01/13/2010 Radiculitis, lumbosacral 01/13/2010 Lumbar spondylosis 01/07/2010 Migraine 12/12/2007 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): Had open heart surgery Encounters Date Type Department Care Team Description 07/13/2025 Telephone Adult Medicine [address] [phone] Erasmo Jackson LPN 07/01/2025 Results Follow-Up Adult Medicine [address] [phone] Jayme Kenyon MD 06/30/2025 10:00 AM EDT Consult Adult Medicine [address] [phone] Jayme Kenyon MD Preop examination (Primary Dx); Paroxysmal atrial fibrillation ([facility]/HCC V24, CMS/HCC V28); Chronic obstructive pulmonary disease with acute exacerbation (CMS/HCC V24, CMS/HCC V28); Screening for diabetes mellitus (DM); Tobacco dependency 06/22/2025 Telephone Adult Medicine [address] [phone] Hosea Douglas PA 06/12/2025 Telephone Adult Medicine [facility] [address] [place] [phone] Hosea Douglas PA 06/03/2025 1:30 PM EDT Office Visit Orthopedic Surgery - [place] [address] [place] [phone] Kamar Smith DPM PVD (peripheral vascular disease) ([facility] V24) (Primary Dx); Pain in toes of both feet; Arthritis of both feet; Dermatophytosis, nail 04/21/2025 Telephone Adult Medicine [facility] [address] [place] [phone] Hosea Douglas PA from Last 3 Months Immunizations Immunization Administration Dates Next Due H1N1 Inj Preservative [...] ARTHROPLASTY; COMMENT: dr. angel, done in [place] OTHER SURGICAL HISTORY 05/22/2022 Right PROCEDURE: [place] [...] s COPD (chronic obstructive pu lmonary disease) ([facility] V24, [facility] V28) 10/28/2012 DX:COPD (chronic o bstructive pulmonary disease) ([facility]) Insomnia 10/28/2012 DX:Insomnia PVD (peripheral vascular dis ease) ([facility] V24) 02/24/2013 DX:PVD (peripheral vascular disease) ([facility]) Major depression 02/24/2013 DX:Major depres jon Borderline abnormal TFTs 02/24/2013 DX:Bord jaime abnormal TFTs Need for hepatitis C screening test 02/24/2013 DX:Need for hepatitis C screening test Historical Medical DX 01/07/2010 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 For example, director child development center or elderly care for an older adult? [...] Sign Reading Time Taken Comments Blood Pressure 144/84 06/30/2025 12:09 PM EDT Pulse 71 06/30/2025 12:09 PM EDT Temperature 35.8 C (96.5 F) 06/30/2025 12:09 PM EDT Respiratory Rate 15 06/30/2025 12:09 PM EDT Oxygen Saturation 95% 06/30/2025 12:09 PM EDT Inhaled Oxygen Concentration - - Weight 82 kg (180 lb 12.8 oz) 06/30/2025 12:09 P M EDT Height 160 cm (5' 3 ) 06/30/2025 12:09 PM EDT Body Mass Index 32.03 06/30/2025 12:09 PM EDT Plan of Treatment Upcoming Encounters Date Type Department Care Team (Late st Contact Info) Description 08/05/2025 2:15 PM EST Office Visit Orthopedic Surgery - [place] [address] [phone] Kamar Smith, DPM [address] [phone] Health Maintenance Due Date Last Done Comments RSV Immunization Adult Patients (1 - Risk 50-74 years 1-dose series) 2011 Zoster Vaccines (1 of 2) 2011 HIV Screening 09/08/2022 Medicare Annual Wellness Visit 09/08/2022 Depression Screening 09/30/2024 11/25/2023 COVID-19 Vaccine ( season) 2025 02/21/2022, 04/21/2021, 04/06/2021, Additional history exists Influenza Vaccine (#1) 2025 , 07/02/2022, 09/14/2021, Additional history exists Breast Cancer Screening 08/05/2025 08/05/20 23, 02/04/2021, 08/01/2019 Social Influencers of Health Screening 12/02/2025 12/02/2024 Colorectal Cancer Screening: Colonoscopy 01/28/2026 02/03/2021 Lung Cancer Screening (Low Dose CT) 02/18/2026 02/18/2025, 02/05/2024, 02/04/2024, Additional history exists Hypertension/CHF/CAD Annual BMP Blood Test 06/30/2026 06/30/2025, 12/15/2024, 05/25/2024, Additional history exists Cervical Cancer Screening: HPV [...] Procedure Name Priority Date/Time Associated Diagnosis Comments ECG 12-LEAD Routine 07/01/2025 8:01 AM EDT ECG 12-LEAD Routine 06/30/2025 1:23 PM EDT Preop examination CBC WITH AUTO DIFFERENTIAL Routine 06/30/2025 12:55 PM EDT Paroxysmal atrial fibrillation (CMS/HCC V24, CMS/HCC V28) Chronic obstructive pulmonary disease with acute exacerbation (CMS/HCC V24, CMS/HCC V28) CBC AND DIFFERENTIAL Routine 06/30/2025 12:55 PM EDT Paroxysmal atrial fibrillation (CMS/HCC V24, CMS/HCC V28) Chronic obstructive pulmonary disease with acute exacerbation (CMS/HCC V24, CMS/HCC V28) COMPREHENSIVE METABOLIC PANEL Routine 06/30/2025 12:55 PM EDT Paroxysmal atrial fibrillation (CMS/HCC V24, CMS/HCC V28) Chronic obstructive pulmonary disease with acute exacerbation ([facility]/HCC V24, [facility] V28) HEMOGLOBIN A1C Routine 06/30/2025 12:55 PM EDT Screening for diabetes mellitus (DM) CT LUNG SCREENING Routine 02/18/2025 1:4 3 PM EDT Encounter for screening for malignant neoplasm of respiratory organs Nicotine dependence, cigarettes, uncomplicated LIPID PANEL WITH REFLEX TO DIRECT LDL Routine 12/15/2024 1:59 PM EDT Atrial flutter, unspecified type ([facility]/HCC V24, [facility] V28) Uncomplicated asthma, unspecified asthma severity, unspecified whether persistent Essential hypertension Chronic obstructive pulmonary disease with acute exacerbation ([facility] V24, [facility] V28) DEPRESSION SCREENING Routine 11/25/2023 DIAGNOSTIC MAMMOGRAPHY INCLUDING CAD BILATERAL Routine 08/05/2023 2:18 PM EST Mastodynia HM HPV Routine 07/05/2022 COLONOSCOPY Routine 02/03/2021 HEPATITIS C SCREENING Routine 06/05/2013 from Last 3 Months or Most Recently Relevant to Health Maintenance Results * ECG 12 lead (07/01/2025 8:01 AM EDT) Only the most recent of2 resultswithin the time period is included. us Historical Provider ECG ORDERABLES Final Res ult * (ABNORMAL) CBC auto differential (06/30/2025 12:55 PM EDT) WBC 8.9 4.8 - 10.8 [facility] LAB HEMETOLOGY METHOD 06/30/2025 2:09 PM EDT [facility] RBC 4.90(H) 3.80 - 4.80 M[facility] LAB HEMETOLOGY METHOD 06/30/2025 2:09 PM EDT [facility] Hemoglobin 14.1 11.5 - 16.0 g/dL LAB HEMETOLOGY METHOD 06/30/2025 2:[facility] Hematocrit 43.2 35.0 - 47.0 % LAB HEMETOLOGY METHOD 06/30/2025 2:09 PM [facility] MCV 89.1 79.0 - 98.0 FL LAB HEMETOLOGY METHOD 06/30/2025 2:09 PM EDT [facility] MCH 29.1 27.0 - 32.0 pcg LAB HEMETOLOGY METHOD 06/30/2025 2:09 PM [facility] MCHC 32.6 32.0 - 37.0 g/dL LAB HEMETOLOGY METHOD 06/30/2025 2:09 PM [facility] RDW 14.1 11.0 - 15.0 % LAB HEMETOLOGY METHOD 06/30/2025 2:09 PM [facility] Platelets 280 130 - 400 K/mcL LAB HEMETOLOGY METHOD 06/30/2025 2:09 PM [facility] MPV 10.6 7.0 - 11.0 FL LAB HEMETOLOGY METHOD 06/30/2025 2:09 PM [facility] NRBC 0.0 <1.0 % LAB HEMETOLOGY METHOD 06/30/2025 2:09 PM [facility] NRBC Absolute 0.00 <0.10 K/mcL LAB HEMETOLOGY METHOD 06/30/2025 2:09 PM [facility] Neutrophils Relative 52.2 % LAB HEMETOLOGY METHOD 06/30/2025 2:09 PM [facility] Lymphocytes Relative 35.8 % LAB HEMETOLOGY METHOD 06/30/2025 2:09 PM [facility] Monocytes Relative 9.7 % LAB HEMETOLOGY METHOD 06/30/2025 2:09 PM EDT [facility] Eosinophils Relative 1.3 % LAB HEMETOLOGY METHOD 06/30/2025 2:09 PM EDT [facility] Basophils Relative 0.8 % LAB HEMETOLOGY METHOD 06/30/2025 2:09 PM EDT [facility] Immature Granulocytes Relative 0.2 % LAB HEMETOLOGY METHOD 06/30/2025 2:09 PM EDT [facility] Neutrophils Absolute 4.64 1.50 - 7.00 K/mcL LAB HEMETOLOGY METHOD 06/30/2025 2:09 PM EDT [facility] Lymphocytes Absolute 3.19 1.00 - 5.00 K/mcL LAB HEMETOLOGY METHOD 06/30/2025 2:09 PM EDT [facility] Monocytes Absolute 0.86 0.20 - 1.00 K/mcL LAB HEMETOLOGY METHOD 06/30/2025 2:09 PM EDT [facility] Eosinophils Absolute 0.12 0.00 - 0.50 K/mcL LAB HEMETOLOGY METHOD 06/30/2025 2:09 PM EDT [facility] Basophils Absolute 0.07 0.00 - 0.20 K/mcL LAB HEMETOLOGY METHOD 06/30/2025 2:09 PM EDT [facility] Immature Granulocytes Absolute 0.02 0.00 - 0.03 K/mcL LAB HEMETOLOGY METHOD 06/30/2025 2:09 PM EDT [facility] Blood Venous blood specimen / Unknown Venipuncture / Unknown 06/30/2025 12:55 PM EDT 06/30/2025 12:55 PM EDT us Jayme Kenyon MD LAB BLOOD ORDERABLES F inal Result [facility] [address] [place] [address], [place] [phone] * Hemoglobin A1c (06/30/2025 12:55 PM EDT) [facility] Hemoglobin A1C 5.3 <6.5 % LAB CHEMISTRY METHOD 06/30/2025 10:08 PM EDT [facility] Mean Bld Glu Estim. 105 mg/dL LAB CHEMISTRY METHOD 06/30/2025 10:08 PM EDT [facility] Blood Venous blood specimen / Unknown Venipuncture / Unknown 06/30/2025 12:55 PM EDT 06/30/2025 12:55 PM EDT Jayme Kenyon MD LAB BLOOD ORDERABLES F inal Result [facility] [address] [place] [address], [place] [phone] * Comprehensive metabolic panel (06/30/2025 12:55 PM EDT) [facility] Sodium 137 133 - 145 mmol/L LAB CHEMISTRY METHOD 06/30/2025 5:45 PM [facility] Potassium 4.2 3.5 - 5.5 mmol/L LAB CHEMISTRY METHOD 06/30/2025 5:45 PM [facility] Chloride 105 96 - 110 mmol/L LAB CHEMISTRY METHOD 06/30/2025 5:45 PM T [facility] CO2 28 21 - 32 mmol/L LAB CHEMISTRY METHOD 06/30/2025 5:45 PM EDT [facility] Anion Gap 4 3 - 11 LAB CHEMISTRY METHOD 06/30/2025 5:45 PM [facility] Glucose 79 70 - 100 mg/dL LAB CHEMISTRY METHOD 06/30/2025 5:45 PM [facility] BUN 10 5 - 25 mg/dL LAB CHEMISTRY METHOD 06/30/2025 5:45 PM [facility] Creatinine 1.00 0.50 - 1.10 mg/dL LAB CHEMISTRY METHOD 06/30/2025 5:45 PM [facility] eGFR 63 >=60 mL/min/1. 73m2 LAB CHEMISTRY METHOD 06/30/2025 5:45 PM [facility] Comment:Calculation based on the Chronic Kidney Disease Epidemiology Collaboration (CKD-EPI) equation refit without adjustment for race. BUN/Creatinine Ratio 10.0 LAB CHEMISTRY METHOD 06/30/2025 5:45 PM [facility] Calcium 9.2 8.5 - 10.5 mg/dL LAB CHEMISTRY METHOD 06/30/2025 5:45 PM [facility] AST (SGOT) 31 10 - 42 unit/L LAB CHEMISTRY METHOD 06/30/2025 5:45 PM [facility] ALT (SGPT) 41 10 - 60 unit/L LAB CHEMISTRY METHOD 06/30/2025 5:45 PM [facility] Alkaline Phosphatase 121 42 - 121 unit/L LAB CHEMISTRY METHOD 06/30/2025 5:45 PM [facility] Total Protein 7.0 6.0 - 8.0 g/dL LAB CHEMISTRY METHOD 06/30/2025 5:45 PM [facility] Albumin 3.8 3.2 - 5.0 g/dL LAB CHEMISTRY METHOD 06/30/2025 5:45 PM [facility] Total Bilirubin 0.4 0.0 - 1.4 mg/dL LAB CHEMISTRY METHOD 06/30/2025 5:45 PM [facility] Blood Venous blood specimen / Unknown Venipuncture / Unknown 06/30/2025 12:55 PM EDT 06/30/2025 12:55 PM EDT Jayme Kenyon MD LAB BLOOD ORDERABLES F inal Result [facility] [address] [place] [address], * CT Lung Screening (02/18/2025 1:43 PM [...] Signed Date: 02/19/2025 05:47 ET Workstation ID: [id number] Transcribed By: Self Edit Transcribed Date: 02/19/2025 [...] Signed Date: 02/19/2025 05:47 ET Workstation ID: [id number] Transcribed By: Self Edit Transcribed Date: 02/19/2025 05:41 ET us Carol Leos MD [facility] CT PROCEDURES Final Result * Lipid panel with reflex to direct LDL (12/15/2024 1:59 PM EDT) Cholesterol 177 0 - 200 mg/dL LAB CHEMISTRY METHOD 12/15/2024 5:06 PM EDT [facility] Triglycerides 130 0 - 150 mg/dL LAB CHEMISTRY METHOD 12/15/2024 5:06 PM EDT [facility] HDL 56 >=40 mg/dL LAB CHEMISTRY METHOD 12/15/2024 5:06 PM EDT [facility] LDL Calculated 95 0 - 100 mg/dL LAB CHEMISTRY METHOD 12/15/2024 5:06 PM EDT [facility] VLDL Cholesterol Luigi 26 mg/dL LAB CHEMISTRY METHOD 12/15/2024 5:06 PM EDT [facility] Non HDL Chol. (LDL+VLDL) 121 <145 mg/dL LAB CHEMISTRY METHOD 12/15/2024 5:06 PM EDT [facility] Chol/HDL Ratio 3.2 0.0 - 4.4 LAB CHEMISTRY METHOD 12/15/2024 5:06 PM EDT [facility] Blood Venous blood specimen / Unknown Venipuncture / Unknown 12/15/2024 1:59 PM EDT 12/15/2024 1:59 PM EDT Hosea CERVANTES LAB BLOOD ORDERABLES Tanisha l Result [facility] [address] [place] [address], * Depression Screening (11/25/2023) Depression Screening abstracted [...] Recommendation: Routine annual screening mammography is recommended Result [facility] Hosea CERVANTES IMG BI PROCEDURES Final R esult * Cervical Cancer Screening: HPV (07/05/2022) Cervical Cancer Screening: HPV abstracted, negative Result [facility] Historical Provider HEALTH MAINTENANCE Final Result * Colonoscopy (02/03/2021) Pathologist [facility] Colonoscopy abstracted, no interpretation Anatomical Region Laterality Modality Other [facility] Provider HEALTH MAINTENANCE Final Result * Hepatitis C Screening (06/05/2013) Pathologist [facility] Hepatitis C Screening abstracted [facility] Provider HEALTH MAINTENANCE Final Result from Last 3 Months or Most Recently Relevant to Health Maintenance Insurance MEDICARE [place] Care Teams Nuclear Officer Relationship Specialty Start Date End Date Hosea Douglas PA [address] [place] [address] PCP - General Internal Medicine 02/01/21
== END 2025-07-15 10:16 | disposition home or self-care (01) ==
LOC: HO.HOS 09:58
PROVIDERS: PCP Physician Assistant Medical; Visit Provider Orthopaedic Surgery
DX: M17.11 Unilateral primary osteoarthritis, right knee (principal)
CPT/HCPCS: 99024

== ENCOUNTER → 2025-07-15 09:57 | Outpatient (BNVA) | payer MEDICARE, MEDICAID, SELFPAY | PROVIDERS: PCP Physician Assistant Medical; Visit Provider Orthopaedic Surgery | DX: Z01.818 Encounter for other preprocedural examination (principal); M17.11 Unilateral primary osteoarthritis, right knee | CPT/HCPCS: 99212 ==

== ENCOUNTER 2025-07-19 05:56 | Day surgery (SDC) | payer MEDICARE, MEDICAID, SELFPAY ==
--- OUTSIDE RECORDS SUMMARY | 2025-05-27 12:51 | XMS_ITS | Clinical Summary ---
Author Organization [facility] Address [address] [place] [address] Care Team Providers Care Embedded Systems Engineer Name Role Phone Hosea Douglas PA-C Primary [...] of 2) 2011 Influenza Vaccine (#1) 2025 Pneumococcal Vaccine (2 of 2 - PCV) 2026 08/17/2014 RSV Adult > 60+ Yrs or Pregn [...] age to complete this topic Care Teams Embedded Systems Engineer Relationship Specialty Start Date End Date Hosea Douglas PA-C PCP - General Medical Services 12/11/21
--- OUTSIDE RECORDS SUMMARY | 2025-05-27 12:51 | XMS_ITS | Clinical Summary ---
Author Organization [facility] [address] [place] [address] Address [address] [place] [address] Phone Care Team Providers Care Capital Markets Specialist Name Role Phone Hosea Douglas Primary Care Provider [phone] Allergies Active Allergy Reactions Criticality Noted Date [...] Pain due to left hip joint prosthesis (CMS/[facility] V 24) 02/07/2023 Primary osteoarthritis of [...] questions answered. Asthma 02/13/2022 Paroxysmal atrial fibrillation ([facility] V24, [facility] V28) 02/13/2022 Primary osteoarthritis of right [...] rpt colonoscopy in 3 years Atrial flutter ([facility] V24, [facility] V28) 2013 Overview (08/19/2024): Atrial flutter [...] with Ansley Lobo PVD (peripheral vascular disease) ([facility] V24) 02/24/2013 COPD (chronic obstructive pu lmonary disease) ([facility] V24, [facility] V28) 10/28/2012 Insomnia 10/28/2012 Abdominal pain 07/24/2012 Knee pain 01/30/2010 Patella, chondromalacia 01/30/2010 Low back pain 01/13/2010 Radiculitis, lumbosacral 01/13/2010 Lumbar spondylosis 01/07/2010 Migraine 12/12/2007 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): Had open heart surgery Encounters Date Type Department Care Team Description 04/21/2025 Telephone Adult Medicine [address] [phone] Hosea Douglas, PA 04/08/2025 Telephone Adult Medicine [address] [phone] Hosae Douglas PA 03/08/2025 Telephone Adult Medicine [address] [phone] Hosea Douglas PA 03/03/2025 1:00 PM EDT Office Visit Orthopedic Surgery - [address] [phone] Kamar Smith DPM PVD (peripheral vascular disease) ([facility] V24) (Primary Dx); Pain in toes of both feet; Arthritis of both feet; Dermatophytosis, nail from Last 3 Months Immunizations Name Administration [...] ARTHROPLASTY; COMMENT: dr. angel, done in [place] OTHER SURGICAL HISTORY 05/22/2022 Right PROCEDURE: [place] ANESTHESIA OPEN TOTAL HIP ARTHROPLASTY; COMMENT: [facility] ; BACK SURGERY 08/19/2023 PROCEDURE: HISTORICAL BACK [...] s COPD (chronic obstructive pu lmonary disease) ([facility] V24, [facility] V28) 10/28/2012 DX:COPD (chronic o bstructive pulmonary disease) ([facility]) Insomnia 10/28/2012 DX:Insomnia PVD (peripheral vascular dis ease) ([facility] V24) 02/24/2013 DX:PVD (peripheral vascular disease) ([facility]) Major depression 02/24/2013 DX:Major depres jon Borderline abnormal TFTs 02/24/2013 DX:Bord jaime abnormal TFTs Need for hepatitis C screening test 02/24/2013 DX:Need for hepatitis C screening test Historical Medical DX 01/07/2010 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 For example, childcare aide or elderly care for an older adult? [...] PM EDT Office Visit Orthopedic Surgery - [place] [address] [place] [phone] Kamar Smith DPM [address] [place], [place] 06/18/2025 2:30 PM EDT Office Visit Adult Medicine [address] [phone] Hosea Douglas PA [address] [place], [place] 06/30/2025 10:00 AM EDT Consult Adult Medicine [address] [phone] Hosea Douglas PA [address] [place], [place] Health Maintenance Due Date Last Done Comments Zoster Vaccines (1 of 2) 2011 RSV Immunization Adult Patients (1 - Risk 60-74 years 1-dose series) 2021 HIV Screening 09/08/2022 Medicare Annual Wellness Visit 09/08/2022 COVID-19 Vaccine ( - season) 2024 02/21/2022, 04/21/2021, 04/06/2021, Additional history [...] of respiratory organs Nicotine dependence, cigarettes, uncomplicated COMPREHENSIVE METABOLIC PANEL Routine 12/15/2024 1:59 PM [...] Signed Date: 02/19/2025 05:47 ET Workstation ID: [id number] Transcribed By: Self Edit Transcribed Date: 02/19/2025 [...] Crenshaw Reviewed and Electronically Signed By: Marla Crenhsaw Signed Date: 02/19/2025 05:47 ET Workstation ID: [id number] Transcribed By: Self Edit Transcribed Date: 02/19/2025 05:41 ET us Carol Leos MD IM CT PROCEDURES Final Result * Lipid panel with reflex to direct [...] mg/dL LAB CHEMISTRY METHOD 12/15/2024 5:06 PM [facility] Chol/HDL Ratio 3.2 0.0 - 4.4 LAB CHEMISTRY METHOD 12/15/2024 5:06 PM T [facility] Blood Venous blood specimen / Unknown Venipuncture / Unknown 12/15/2024 1:59 PM EDT 12/15/2024 1:59 PM EDT Hosea CERVANTES LAB BLOOD ORDERABLES Tanisha l Result [facility] [address] [place] [address], * (ABNORMAL) Comprehensive metabolic panel (12/15/2024 1:59 PM EDT) Sodium 136 133 - 145 mmol/L LAB CHEMISTRY METHOD 12/15/2024 5:07 PM [facility] Potassium 4.3 3.5 - 5.5 mmol/L LAB CHEMISTRY METHOD 12/15/2024 5:07 PM [facility] Chloride 104 96 - 110 mmol/L LAB CHEMISTRY METHOD 12/15/2024 5:07 PM [facility] CO2 30 21 - 32 mmol/L LAB CHEMISTRY METHOD 12/15/2024 5:07 PM [facility] Anion Gap 2(L) 3 - 11 LAB CHEMISTRY METHOD 12/15/2024 5:07 PM [facility] Glucose 81 70 - 100 mg/dL LAB CHEMISTRY METHOD 12/15/2024 5:07 PM [facility] BUN 12 5 - 25 mg/dL LAB CHEMISTRY METHOD 12/15/2024 5:07 PM [facility] Creatinine 1.04 0.50 - 1.10 mg/dL LAB CHEMISTRY METHOD 12/15/2024 5:07 PM T [facility] eGFR 61 >=60 mL/min/1. 73m2 LAB CHEMISTRY METHOD 12/15/2024 5:07 PM [facility] Comment:Calculation based on the Chronic Kidney Disease Epidemiology Collaboration (CKD-EPI) equation refit without adjustment for race. BUN/Creatinine Ratio 11.5 LAB CHEMISTRY METHOD 12/15/2024 5:07 PM T [facility] Calcium 9.3 8.5 - 10.5 mg/dL LAB CHEMISTRY METHOD 12/15/2024 5:07 PM [facility] AST (SGOT) 11 10 - 42 unit/L LAB CHEMISTRY METHOD 12/15/2024 5:07 PM [facility] ALT (SGPT) 15 10 - 60 unit/L LAB CHEMISTRY METHOD 12/15/2024 5:07 PM [facility] Alkaline Phosphatase 130(H) 42 - 121 unit/L LAB CHEMISTRY METHOD 12/15/2024 5:07 PM [facility] Total Protein 7.0 6.0 - 8.0 g/dL LAB CHEMISTRY METHOD 12/15/2024 5:07 PM [facility] Albumin 3.8 3.2 - 5.0 g/dL LAB CHEMISTRY METHOD 12/15/2024 5:07 PM [facility] Total Bilirubin 0.4 0.0 - 1.4 mg/dL LAB CHEMISTRY METHOD 12/15/2024 5:07 PM [facility] Blood Venous blood specimen / Unknown Venipuncture / Unknown 12/15/2024 1:59 PM EDT 12/15/2024 1:59 PM EDT us Hosea CERVANTES LAB BLOOD ORDERABLES Tanisha rosales Result [facility] [address] [place] [address], [place] [phone] * Depression Screening (11/25/2023) Depression Screening abstracted us Historical Provider HEALTH MAINTENANCE Final Result * [...] esult * Cervical Cancer Screening: HPV (07/05/2022) [facility] Cervical Cancer Screening: HPV abstracted, negative [facility] Provider HEALTH MAINTENANCE Final Result * Colonoscopy (02/03/2021) [facility] Colonoscopy abstracted, no interpretation Anatomical Region Laterality Modality Other [facility] Provider HEALTH MAINTENANCE Final Result * Hepatitis C Screening (06/05/2013) [facility] Hepatitis C Screening abstracted [facility] Provider HEALTH MAINTENANCE Final Result from Last 3 Months or Most Recently Relevant to Health Maintenance Insurance MEDIC[place] Care Teams Capital Markets Specialist Relationship Specialty Start Date End Date Hosea Douglas PA [address] [place] [id number] PCP - General Internal Medicine 02/01/21
[2025-07-01 13:26] VITALS: BP 141/67; PULSE 68; RESP 18; O2SAT 96; BMI 32.0
[2025-07-01 15:35] LABS: MRSA Nasal PCR NEGATIVE (Negative); SA Nasal PCR NEGATIVE (Negative)
[2025-07-19] VITALS (12 sets, daily range): BP systolic 95–161; BP diastolic 58–86; PULSE 55–83; RESP 15–20; TEMP 36.1–36.4; O2SAT 92–98
--- NOTE | ~2025-07-19 | XR_ITS ---
CLINICAL HISTORY: fall, R wrist pain Exam: PA, lateral, and oblique views of the right wrist. Comparison none provided. Findings: No acute fracture or bony malalignment identified. There is a well corticated ossification measuring 4 x 3 mm along the dorsal aspect of the proximal carpal row, likely a remote triquetral fracture. No erosions. Impression: No acute fracture. This document has been electronically signed by: Saulo Mccoy MD on 07/20/2025 00:58:16
--- NOTE | ~2025-07-19 | XR_ITS ---
CLINICAL HISTORY: fall, R upper leg pain 2 view right femur Comparison: CR/SR - XR PELVIS 1-2 VIEWS - 05/28/24 15:26 EDT DX/SR - XR KNEE 3 VIEWS RIGHT - 12/12/23 12:52 EDT Findings: Unchanged position and alignment of the patient's right total hip arthroplasty. No fracture or abdomen normal lucency is seen adjacent to the surgical hardware. Interval right total knee arthroplasty. Anterior cutaneous annika are in place. Position and alignment of the prosthesis is appropriate. Postoperative soft tissue gas and postoperative soft tissue swelling as expected. No acute fracture. IMPRESSION: Postsurgical changes as above with evidence of recent right knee arthroplasty. No acute fracture. This document has been electronically signed by: Saulo Mccoy MD on 07/20/2025 00:58:31
[2025-07-19] MEDS: Lactated Ringers 1,000 ML 100 ML IVCONT ×3 (06:43→23:44)
--- NOTE | 2025-07-19 07:15 | HO.ANESPROP2 ---
Documented by User: Zara Medeiros NP 07/01/25 13:43 HPI - Anesthesia Eval Consult details Narrative: 64yo F for Right Knee Replacement Total, 07/19/25 s/p Left TKA 02/2025 with spinal and nerve block No recent illness. No CP. WARNER with stairs is baseline for years Cardiac optimized per workload messages. [place] [facility] for afib, hx WPW s/p ablations. Prior to 02/2025 TKA Mildly abnormal stress test. Intermediate risk for perioperative cardiovascular morbidity mortality. No change in therapy. Eliquis can be held 3 days prior to the procedure and restarted as soon as possible after surgery with associated risk Eliquis for Afib s/p ablation 2017 WPW s/p RFA > 40 years ago Implantable loop recorder in situ Medically optimized per PCP Asthma/COPD: albuterol 1 x daily or less. Does not follow pulmonary, PCP manages GERD: ppi controls PMFSH Active Problems Active Problems: All Active Problems Pre-op evaluation (Acute) Preop cardiovascular exam (Acute) Iliotibial band syndrome, left leg (Acute) Status post bilateral total hip replacement (Acute) Arthritis of right knee (Acute) Arthritis of left knee (Acute) Right knee pain (Acute) Left knee pain (Acute) Status post total left knee replacement (Acute ~03/15/25) History of hip surgery (Acute) History of hip surgery (Acute) Paroxysmal atrial flutter (Acute) Status post placement of implantable loop recorder (Acute) Past Medical History Medical History Depression Asthma Migraines PVD (peripheral vascular disease) Elevated cholesterol COPD (chronic obstructive pulmonary disease) HTN (hypertension) Arthritis GERD (gastroesophageal reflux disease) Paroxysmal atrial flutter Status post placement of implantable loop recorder WPW (Fwqxn-Efgejuyli-Cvdwe syndrome) Family History Family History Father HTN (hypertension) Mother HTN (hypertension) Family history of problems with anesthesia: No Surgical History Surgical History Status post total left knee replacement (~03/15/25) History of hip surgery Hx of cholecystectomy History of cardiac radiofrequency ablation H/O colonoscopy History of hip surgery History of hip surgery History of back surgery Hx of neck surgery History of Problems with Anesthesia: No Social History Social History Housing Other:: mobile home Are you a primary continuum of care manager to a significant other at home: No 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 If so, by whom?: No Spiritual Healthcare Practices: no Mormonism Healthcare Practices: no Cultural Healthcare Practices: no Are you DNR?: No Advance Directives: Yes (states son is HCP) Advance Directives Information Provided: Yes Advance Directives on File: Yes Advance Directives Date on File: 03/17/25 FDLMP: n/a Poor oral hygiene: No service: No Current occupational status: disabled Current occupation: Right hand dominate Meds Allergies Allergy/AdvReac Type Severity Reaction Status Date / Time pravastatin Allergy Mild rash Verified 07/19/25 06:16 Home Medications ?Medication ?Instructions ?Recorded ?Confirmed ?Last Taken ?Type acyclovir 400 mg tablet 400 mg PO MOFR PRN Outbreak 09/06/21 07/15/25 03/12/25 History apixaban 5 mg tablet (Eliquis) 5 mg PO BID 09/06/21 07/15/25 07/09/25 History bupropion HCl 300 mg 24 hr tablet, 300 mg PO DAILY 09/06/21 07/15/25 07/18/25 History extended release omeprazole 20 mg tablet,delayed 20 mg PO DAILY@0630 09/06/21 07/15/25 07/19/25 05:30 History release trazodone 100 mg tablet 200 mg PO BEDTIME Insomnia 09/06/21 07/15/25 07/18/25 History zolpidem 10 mg tablet 10 mg PO BEDTIME Insomnia 09/06/21 07/15/25 07/18/25 History albuterol sulfate 90 mcg/actuation 90 mcg inhalation Q4H PRN 04/07/15/25 07/18/25 History aerosol inhaler (Ventolin HFA) Shortness Of Breath Or Wheezing melatonin 3 mg tablet 3 mg PO BEDTIME 06/04/24 07/15/25 07/18/25 History rosuvastatin 10 mg tablet 10 mg PO BEDTIME 06/04/24 07/15/25 07/19/25 05:30 History tizanidine 4 mg tablet 4 - 8 mg PO BEDTIME PRN Pain 06/04/24 07/15/25 03/14/25 History clonazepam 0.5 mg tablet 0.5 mg PO DAILY 09/14/24 07/15/25 07/18/25 History lamotrigine 150 mg tablet 300 mg PO BEDTIME 09/21/24 07/15/25 07/18/25 History albuterol sulfate 2.5 mg/3 mL 2.5 mg inhalation Q4H PRN 02/15/25 07/15/25 Unknown History (0.083 %) solution for nebulization Shortness Of Breath Or Wheezing ferrous sulfate 325 mg (65 mg 325 mg PO DAILY 03/15/25 07/15/25 07/18/25 History iron) tablet (FeroSul) dncudrqv-uqo-fctxp acid 0.4 1 tab PO BEDTIME 03/15/25 07/15/25 07/18/25 History mg-lycopene 300 mcg-lutein 250 mcg tablet (CertaVite Senior) celecoxib 200 mg capsule 200 mg PO QPM 07/01/25 07/15/25 07/13/25 History Exam Height,Weight and Vital Signs: Height 5 ft 3 in Weight 82 kg Last Vital Signs Pulse 68 07/01/25 13:26 Resp 18 07/01/25 13:26 BP 141/67 H 07/01/25 13:26 Pulse Ox 96 07/01/25 13:26 O2 Del Method Room Air 07/01/25 13:26 Narrative Narrative: EKG 07/2024 Details: EKG shows normal sinus rhythm with normal EKG NM cardiolite stress test 07/2024 Impression: 1. Myocardial perfusion imaging study shows mixed perfusion defect in the mid to distal inferolateral wall. Possible ischemia/infarct pattern. Cannot exclude artifactual etiology. 2. Gated LVEF is 58% during stress and 57% during rest. 3. Transient ischemic dilatation not present. Airway Mallampati Class: II TM Dist: >3cm Neck ROM: Limited (s/p cspine surgery ~ 5 years ago) Denture: Upper Loose/Missing/Broken Teeth: Yes (does not wear lower dentures) Heart: RRR Lungs: CTAB Assessment and Plan Assessment Anesthesia Assessment: Anesthesia Plan Discussed, Smoking Cess. Discussed and PAT Visit Final Anesthetic Review Family History of Problems with Anesthesia: No History of Problems with Anesthesia: No Documented by User: Kyra Ospina DO 07/19/25 07:50 PMFSH Past Medical History Medical History Depression Asthma Migraines PVD (peripheral vascular disease) Elevated cholesterol COPD (chronic obstructive pulmonary disease) HTN (hypertension) Arthritis GERD (gastroesophageal reflux disease) Paroxysmal atrial flutter Status post placement of implantable loop recorder WPW (Fugya-Bpdvdbsnt-Vgpvu syndrome) Family History Family History Father HTN (hypertension) Mother HTN (hypertension) Family history of problems with anesthesia: No Surgical History Surgical History Status post total left knee replacement (~03/15/25) History of hip surgery Hx of cholecystectomy History of cardiac radiofrequency ablation H/O colonoscopy History of hip surgery History of hip surgery History of back surgery Hx of neck surgery History of Problems with Anesthesia: No Social History Social History Housing Other:: mobile home Are you a primary continuum of care manager to a significant other at home: No 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 If so, by whom?: No Spiritual Healthcare Practices: no Mormonism Healthcare Practices: no Cultural Healthcare Practices: no Are you DNR?: No Advance Directives: Yes (states son is HCP) Advance Directives Information Provided: Yes Advance Directives on File: Yes Advance Directives Date on File: 03/17/25 FDLMP: n/a Poor oral hygiene: No service: No Current occupational status: disabled Current occupation: Right hand dominate Meds Allergies Allergy/AdvReac Type Severity Reaction Status Date / Time pravastatin Allergy Mild rash Verified 07/19/25 06:16 Home Medications ?Medication ?Instructions ?Recorded ?Confirmed ?Last Taken ?Type acyclovir 400 mg tablet 400 mg PO MOFR PRN Outbreak 09/06/21 07/15/25 03/12/25 History apixaban 5 mg tablet (Eliquis) 5 mg PO BID 09/06/21 07/15/25 07/09/25 History bupropion HCl 300 mg 24 hr tablet, 300 mg PO DAILY 09/06/21 07/15/25 07/18/25 History extended release omeprazole 20 mg tablet,delayed 20 mg PO DAILY@0630 09/06/21 07/15/25 07/19/25 05:30 History release trazodone 100 mg tablet 200 mg PO BEDTIME Insomnia 09/06/21 07/15/25 07/18/25 History zolpidem 10 mg tablet 10 mg PO BEDTIME Insomnia 09/06/21 07/15/25 07/18/25 History albuterol sulfate 90 mcg/actuation 90 mcg inhalation Q4H PRN 01/17/23 07/15/25 07/18/25 History aerosol inhaler (Ventolin HFA) Shortness Of Breath Or Wheezing melatonin 3 mg tablet 3 mg PO BEDTIME 06/04/24 07/15/25 07/18/25 History rosuvastatin 10 mg tablet 10 mg PO BEDTIME 06/04/24 07/15/25 07/19/25 05:30 History tizanidine 4 mg tablet 4 - 8 mg PO BEDTIME PRN Pain 06/04/24 07/15/25 03/14/25 History clonazepam 0.5 mg tablet 0.5 mg PO DAILY 09/14/24 07/15/25 07/18/25 History lamotrigine 150 mg tablet 300 mg PO BEDTIME 09/21/24 07/15/25 07/18/25 History albuterol sulfate 2.5 mg/3 mL 2.5 mg inhalation Q4H PRN 02/15/25 07/15/25 Unknown History (0.083 %) solution for nebulization Shortness Of Breath Or Wheezing ferrous sulfate 325 mg (65 mg 325 mg PO DAILY 03/15/25 07/15/25 07/18/25 History iron) tablet (FeroSul) efpystxu-qzd-gwwol acid 0.4 1 tab PO BEDTIME 03/15/25 07/15/25 07/18/25 History mg-lycopene 300 mcg-lutein 250 mcg tablet (CertaVite Senior) celecoxib 200 mg capsule 200 mg PO QPM 07/01/25 07/15/25 07/13/25 History Exam Exam Date and Time: 07/19/25 0715 Height,Weight and Vital Signs: Vital Signs Pulse Rate 68 07/01/25 13:26 Respiratory Rate 18 07/01/25 13:26 Blood Pressure 141/67 H 07/01/25 13:26 Pulse Oximetry 96 07/01/25 13:26 Oxygen Delivery Method Room Air 07/01/25 13:26 Temperature 97.6 F 07/19/25 06:29 Pulse Rate 77 07/19/25 06:29 Respiratory Rate 16 07/19/25 06:29 Blood Pressure 140/86 H 07/19/25 06:29 Pulse Oximetry 93 07/19/25 06:29 Oxygen Delivery Method Room Air 07/19/25 06:29 Height 5 ft 3 in Weight 82 kg Last Vital Signs Pulse 68 07/01/25 13:26 Resp 18 07/01/25 13:26 BP 141/67 H 07/01/25 13:26 Pulse Ox 96 07/01/25 13:26 O2 Del Method Room Air 07/01/25 13:26 Airway Mallampati Class: I TM Dist: >3cm Neck ROM: Limited Denture: Upper Loose/Missing/Broken Teeth: Yes (edentulous) Heart: S1S2 Assessment and Plan Assessment Anesthesia Assessment: Anesthesia Plan Discussed and Chart Reviewed Final Anesthetic Review Family History of Problems with Anesthesia: No History of Problems with Anesthesia: No NPO: Yes ASA Class: III Final Preanesthetic Review: No Changes in Pt Med Stat, Meds/Allgs Chart Reviewed, Consent Obtained/Reviewed and Anes Risks/Benef Reviewed Patient Risk: Intermediate Procedure Risk: Intermediate Anesthetic Plan Anesthetic Plan: Spinal and Regional Block (right adductor canal and right ipack block) Disposition: Standard PACU
--- NOTE | 2025-07-19 10:31 | P.DS_ITS ---
DS: Providers Provider Date of Service: 07/20/25 Date of discharge: 07/20/25 Primary care physician: HELEN Cardona DS: Summary Hospital Course Hospital Course: The patient underwent a successful right total knee arthroplasty, they were transferred to PACU and then to the floor to recover. During their stay, their vitals were stable, afebrile at 97.0. Labs were unremarkable, H/H 11.9/36.7. POD 1 they were restarted on Eliquis 5mg po BID for DVT ppx, they also received Physical Therapy services twice a day. Prior to discharge, their dressing was clean dry and intact and the plan was to be discharged home with VNA services. Time Attestation Discharge Coordination Time (in mins): 30 Quality: Safe Use of Opioids Does Pt have an Active Cancer Diagnosis on the Problem List?: No Quality: Stroke Does the patient have a stroke diagnosis?: No Physical Exam Vital Signs: Vital Signs: Last Vital Signs Temp 97.6 F 07/19/25 06:29 Pulse 77 07/19/25 06:29 Resp 16 07/19/25 06:29 BP 140/86 H 07/19/25 06:29 Pulse Ox 93 07/19/25 06:29 O2 Del Method Room Air 07/19/25 06:29 BMI result Body Mass Index 32.0 Const: General: cooperative, healthy appearing and no acute distress Resp: Effort & Inspection: normal respiratory effort and able to speak in complete sentences Extrem: Other: right knee dressing is c/d/i. Able to dorsi/plantar flex. Calf is supple and nontender. Sensation intact. Pedal pulse intact. Psych: Appearance: grossly normal Mental Status: mental status grossly normal Attitude: cooperative DS: Data Data Completed and Pending Pending studies at discharge: Pending at discharge 07/19/25 08:53 Surgical [PTH] Routine Labs on day of discharge: Laboratory Results - last 24 hr 07/19/25 06:30 Blood Type A Negative Antibody Screen NEGATIVE Discharge Plan Discharge Patient Disposition: Home Health Service Referrals: Nadia Mcconnell PA-C [Physician Environmental Lawyer, Orthopedics] - 08/05/25 2:00 pm Discharge Medications: New celecoxib 200 mg Capsule 200 mg PO BID 30 Days Qty: 60 0RF methocarbamol 500 mg Tablet 500 mg PO TID 7 Days Qty: 21 0RF acetaminophen 325 mg Tablet 650 mg PO Q6H PRN (Reason: Pain, Mild 1-3,Fever,Headache) 30 Days Qty: 240 0RF nicotine (polacrilex) 2 mg Gum 2 mg buccal Q2H PRN (Reason: Nicotine Cravings) 30 Days Qty: 360 0RF gabapentin 100 mg Capsule 100 mg PO BEDTIME 7 Days Qty: 7 0RF oxycodone 10 mg tablet 10 mg PO Q4H PRN (Reason: Pain, Moderate(Pain Scale 4-6)) 7 Days Qty: 42 0RF Rx Instructions: Partial Fill upon patient request. docusate sodium 100 mg Capsule 100 mg PO BID 30 Days Qty: 60 0RF Continued (DME) walker Misc See Rx Instructions .ROUTE .MEDSUPPLY Qty: 1 0RF Rx Instructions: Folding front wheeled walker (DME) walker Misc See Rx Instructions .MEDSUPPLY Qty: 1 0RF Rx Instructions: Folding front wheeled walker oxycodone 5 mg tablet 5 mg PO Q12H PRN (Reason: pain) Qty: 30 0RF Rx Instructions: Partial Fill upon patient request. lamotrigine 150 mg Tablet 300 mg PO BEDTIME albuterol sulfate 2.5 mg /3 mL (0.083 %) Solution For Nebulization 2.5 mg INHALATION Q4H PRN (Reason: Shortness Of Breath Or Wheezing) ferrous sulfate [FeroSul] 325 mg (65 mg iron) tablet 325 mg PO DAILY CertaVite Senior 0.4 mg-300 mcg- 250 mcg tablet 1 tab PO BEDTIME albuterol sulfate [Ventolin HFA] 90 mcg/actuation HFA aerosol inhaler 90 mcg inhalation Q4H PRN (Reason: Shortness Of Breath Or Wheezing) Eliquis 5 mg tablet 5 mg PO BID omeprazole 20 mg tablet,delayed release (DR/EC) 20 mg PO DAILY@0630 acyclovir 400 mg tablet 400 mg PO MOFR PRN (Reason: Outbreak) zolpidem 10 mg tablet 10 mg PO BEDTIME bupropion HCl 300 mg tablet extended release 24 hr 300 mg PO DAILY trazodone 100 mg tablet 200 mg PO BEDTIME melatonin 3 mg tablet 3 mg PO BEDTIME tizanidine 4 mg tablet 4 - 8 mg PO BEDTIME PRN (Reason: Pain) rosuvastatin 10 mg tablet 10 mg PO BEDTIME clonazepam 0.5 mg tablet 0.5 mg PO DAILY Discontinued acetaminophen 325 mg Tablet 650 mg PO Q6H PRN (Reason: Pain, Mild 1-3,Fever,Headache) 30 Days Qty: 240 0RF gabapentin 100 mg Capsule 100 mg PO BEDTIME 7 Days Qty: 7 0RF celecoxib 200 mg capsule 200 mg PO QPM amoxicillin 500 mg tablet 2,000 mg PO ONCE 1 Days Qty: 4 3RF Rx Instructions: take 4 capsules 1 hr prior to dental procedure Discharge Orders: Discharge Order (Routine); Ordered 07/20/25 Ordered By: Nadia Mcconnell Diet: Advance to usual diet Activity on Discharge: Use cane or walker Activity Restrictions/Additional Instructions: Physical Therapy for ROM 0-120, quad strength, gait training. No driving for 6 weeks Keep Aquacel dressing clean, dry and intact. Follow up with orthopedics in 2 weeks -Bandage/Incision Site Care: -Ice 20mins at a time -Make sure you use a towel or cloth on your skin as a barrier -DO NOT remove the bandage -Keep Bandage clean, dry and intact -Do not get the bandage wet: -No tub bath, pools or hot tubs -If there are any concerns regarding the bandage please call orthopedics: [phone] -Knee Precautions: -Refrain from putting pillows under the knee -Keep leg straight while resting the knee -Avoid low chairs and deep couches -Use supportive shoes with nonslip soles -Physical Therapy: -Patient is WBAT with the use of a walker -Range of Motion: 0-120 degrees. -Strengthening: Quadriceps and hip muscles -Walking: Gait training and gradually increasing distance with walker -Ankle pumps and incentive spirometry to limit the risk of blood clot -Diet: -Resume regular diet as tolerated. -Drink plenty of fluids and eat a high-fiber foods to avoid constipation -This is a common side effect of pain medication) -Take stool softeners as prescribed -Blood Clot Prevention: -Resume Eliquis 5mg po BID at your regular dose -Perform ankle pumps and walk frequently with the walker and assistance if needed -Report calf pain, swelling, or shortness of breath immediately Print Language: Marshallese
--- NOTE | 2025-07-19 10:49 | P.BOP_ITS ---
Brief Operative Note Date of Service: 07/19/25 Pre-op diagnosis: Right knee degenerative joint disease Post-op diagnosis: same Procedure: Right total knee arthroplasty Implants: Gilman Triathlon cemented posterior stabilized total knee arthroplasty with a femoral component size 4 right, tibial component size 4, polyethylene liner size 4 with 11 mm of thickness, an asymmetric patellar component size 29 with 9 mm of thickness Surgeon: Richie Calero MD Anesthesia: regional and spinal Was an Equipment Validation Specialist used for this Procedure?: No Equipment Validation Specialist: Nadia Mcconnell Estimated blood loss (mL): 200 Pathology: other (Bony fragments from the right femur, tibia and patella) Condition: stable Disposition: PACU
--- NOTE | 2025-07-19 10:50 | P.OP_ITS ---
Operative Note Operative Note Date of Service: 07/19/25 Narrative: After the patient was identified as Laura Hickman and her right knee was initialed by myself the patient was brought to the holding area where a right leg nerve block was performed by the anesthesiologist in routine fashion. The patient was then brought to the operating room where conscious sedation and spinal anesthesia were performed by the anesthesiologist in routine fashion. Because of the patient's history of previous arthroplasty infection she was given both IV Ancef and IV vancomycin preoperatively for infection prophylaxis. The patient's right lower extremity was prepped and draped in sterile fashion. A formal time-out was completed. The patient's right knee was placed onto a small bump to produce 30? of knee flexion during exposure. A #10 scalpel blade was used to make a midline incision extending 1 handbreadth proximal and distal to the patella. A second #10 scalpel blade was used to dissect the subcutaneous tissues down to the extensor mechanism. The subcutaneous flaps were maintained as thick as possible. A medial parapatellar arthrotomy was then performed using a #10 scalpel blade. The arthrotomy was begun just medial to the patellar tendon. The arthrotomy was continued 1 cm medial to the patella and then 5 mm into the medial aspect of the quadriceps tendon. The infrapatellar fat pad was partially excised to help with exposure. The soft tissue retinaculum was raised one-half of the way around the medial aspect of the proximal tibia. The patella was everted and the knee was flexed to 90?. There was no injury to the patellar tendon or its insertion onto the tibial tubercle. A drill bit was introduced into the distal aspect of the femur with a starting point 1 cm anterior to the origin of the posterior cruciate ligament. The intramedullary alignment francesca was put into place. The distal alignment guide was set for a 5 degree valgus cut. The distal cutting block was put into place and we held it with 4 pins. The intramedullary alignment francesca was removed. Soft tissues were retracted in the distal femoral cut was made using a sagittal saw. The distal aspect of the femur measured to be a size 4 right component. Two drill holes were placed into the distal aspect of the femur marking 3? of external rotation. The distal cutting block was impacted into place and we held it with 2 pins. Soft tissues were retracted and the 4 distal femoral cuts were made using a sagittal saw. Final notching and drilling of the distal aspect of the femur were performed in routine fashion. The trial femoral component was impacted into place. The knee was taken through a full range of motion. The patella tracked well. The patella was everted and the knee was flexed to 90?. The trial component was removed and our attention was directed to the proximal tibia. The medial and lateral menisci were removed using a #10 scalpel blade. A small rim of the medial meniscus was left intact to help prevent injury to the medial collateral ligament. A drill bit was then introduced into the proximal tibia with a starting point midway from medial to lateral and one-third of the way posteriorly. The intramedullary alignment francesca was put into place. The proximal tibial cutting guide was placed over the alignment francesca in line with the 2nd toe. The guide was held in place using 3 pins. The intramedullary alignment francesca was removed. Soft tissues were retracted and the proximal tibial cut was made using a sagittal saw. The proximal tibia measured to be a size 4 component. The tibial tray was put into place with an 11 mm liner. The femoral component was impacted into place. The knee was taken through a full range of motion. There was full flexion and full extension. There was no instability with varus or valgus stress testing with the knee in flexion or extension. The patella tracked well with no medially directed force. The rotation of the tibial tray was marked using electrocautery with the knee in extension. The patella was everted and the knee was flexed to 90?. All trial components were removed. The tibial tray was placed onto the proximal tibia in line with the electrocautery dionne. The tray was held in place using 3 pins. Final broaching of the proximal tibia was performed in routine fashion. The trial liner and trial femoral component were put into place. The knee was brought into extension and our attention was directed to the patella. The patella measured 25 mm in thickness. The patellar resection guide was set for a 10 mm resection. Soft tissues were retracted and the patella cut was made using a sagittal saw. The remaining patella measured 15 mm in thickness. The undersurface of the patella was measured to be a size 29 asymmetric component. Three drill holes were placed into the undersurface of the patella in routine fashion. The trial component was put into place. The knee was taken through a full range of motion. The patella tracked well. The patella was everted and the knee was flexed to 90?. All trial components were removed. The knee was once again brought into extension and placed onto a small bump. The knee joint was irrigated with copious amounts of normal saline solution via pulse lavage while the cement was mixed. The patella was everted and the knee was flexed to 90?. A small amount of cement was placed along the posterior aspects of the tibial and femoral components. Cement was then pressurized into the proximal tibia. The tibial component was impacted into place. Any excess cement was removed. The polyethylene liner was then impacted into place. Cement was then pressurized into the distal aspect of the femur. A small amount of cement was placed into the intramedullary canal to help reduce bleeding. The femoral component was impacted into place. Any excess cement was removed. The knee was then brought into extension. Cement was pressurized into the undersurface of the patella. The patellar component was put into place and was held with a patella clamp. Any excess cement was removed. Once the cement had hardened the patellar clamp was removed. The knee was taken through a full range of motion. There was full flexion and extension. There was no instability with varus or valgus stress testing with the knee in flexion or extension. The patella tracked well with no medially directed force. The knee joint was irrigated with copious amounts of normal saline solution via pulse lavage. Any significant bleeding vessels were coagulated. The patient's right knee was placed onto a small bump. The arthrotomy was closed with #2 Ethibond zvmxat-fu-pvlia interrupted suture as well as #1 Vicryl eghnhi-uw-ecrgf interrupted suture. The wound was once again irrigated. The subcutaneous tissues were closed with 0 Vicryl and 2-0 Vicryl interrupted sutures. The skin was closed with skin annika. Dry sterile dressing and Junior bandages were placed over the patient's right knee. The patient was awake and alert. The patient was transferred to the recovery room in stable condition. Justification for PA Senior Living Advisor: The complexity of this total knee arthroplasty, involving significant bony deformity and soft tissue releases, necessitates the assistance of a qualified operating room surgical technologist for optimal surgical exposure, hemostasis and efficient execution of the procedure.
[2025-07-19] MEDS: oxyCODONE HCl ER 10 MG TAB.ER.12H PO ×2 (12:00→21:04)
[2025-07-19] MEDS: oxyCODONE HCl Immed Release 5 MG TABLET PO (12:01)
--- NOTE | 2025-07-19 12:07 | PHA.MEDREC ---
Pharmacy Consult ? Medication Reconciliation Pharmacy has reviewed the medication reconciliation completed by nursing.
[2025-07-19] MEDS: Ferrous Sulfate 324 MG TABLET.DR PO (12:54)
[2025-07-19] MEDS: buPROPion HCl XL 300 MG TAB.ER.24H PO (12:54)
[2025-07-19] MEDS: oxyCODONE HCl Immed Release 5 MG TABLET 10 MG PO ×2 (15:41→19:53)
--- NOTE | 2025-07-19 18:39 | PC.NURSE ---
2183- Patient was being assisted up out of bed to the [facility] by a PRICER BAGGER. Patient has new foot drop to right foot post-op right TKA today. Patient reports she tripped over her right foot and this is what caused her to lose her balance. Patient then fell backwards landing on her buttocks on the floor. No head-strike. Patient endorsed some numbness to right foot, but denies other injury. Skin intact. Denied any changes in pain. Patient assisted back into bed by two staff members. Vital signs obtained and stable. Med-Surg Director Patricia White notified. call center specialist ortho Dr. Neal notified. No new orders.
--- NOTE | 2025-07-19 20:29 | P.CONHOSP_ITS ---
History of Present Illness Data of Consult Service Date: 07/19/25 Requesting physician: Richie Calero Primary Care Provider: HELEN Cardona HPI Reason for consult: medical management Patient is a 65-year-old female with a past medical history significant for anxiety/depression, asthma/COPD overlap, migraines, PVD, HLD, HTN, GERD, paroxysmal atrial flutter on Eliquis, Jecgu-Ucpuxmklg-Bohah s/p loop recorder and ablation, and tobacco use disorder, no s/p R TKA today. Around 16:00 today the patient had a fall due to right foot drop. She continues to have weakness in the right foot and inability to dorsiflex or plantar flex. She has no medical concerns including chest pain, shortness of breath, nausea, vomiting, abdominal pain, dizziness or urinary symptoms. She is requesting nicotine gum for her cravings. Review of Systems Constitutional: Constitutional: Denies chills, Denies fatigue, Denies fever(s) and Denies headache(s) Eyes: Eyes: Denies change in vision ENT: Denies headache(s), Denies nasal congestion, Denies nasal discharge and Denies sinus pressure Cardiovascular: Cardiovascular: Denies chest pain and Denies dyspnea Respiratory: Respiratory: Denies cough, Denies dyspnea and Denies wheezing Gastrointestinal: Gastrointestinal: Denies abdominal pain, Denies nausea and Denies vomiting Genitourinary: Genitourinary: Denies dysuria Musculoskeletal: Musculoskeletal: Reports as per HPI Integumentary/Breasts: Skin/Breast: Denies rash Neurologic: Denies confusion and Denies headache(s) Psychiatric: Psychiatric: Denies confusion Endocrine: Endocrine: Denies fatigue Hematologic/Lymphatic: Hematologic/Lymphatic: Denies easy bleeding and Denies easy bruising Allergic/Immunologic: Allergic/Immunologic: Denies wheezing [facility] Medical History Depression Asthma Migraines PVD (peripheral vascular disease) Elevated cholesterol COPD (chronic obstructive pulmonary disease) HTN (hypertension) Arthritis GERD (gastroesophageal reflux disease) Paroxysmal atrial flutter Status post placement of implantable loop recorder WPW (Gypkr-Bjwfintti-Cwwjq syndrome) Family History Father HTN (hypertension) Mother HTN (hypertension) Surgical History Status post total left knee replacement (~03/15/25) History of hip surgery Hx of cholecystectomy History of cardiac radiofrequency ablation H/O colonoscopy History of hip surgery History of hip surgery History of back surgery Hx of neck surgery Social History Housing Other:: mobile home Are you a primary critical care nurse to a significant other at home: No Do you presently have visiting nurse or other home services: Yes ([employer]) Patient Tobacco Use Status: Current everyday Tobacco user Tobacco use type: Cigarette Cigarettes Per Day: 5 Years Smoked: 50 Advance Directives Date on File: 03/17/25 service: No Current occupational status: disabled Current occupation: Right hand dominate Narrative: smokes 5 cigarettes per day, no alcohol or drug use Meds Allergies Allergy/AdvReac Type Severity Reaction Status Date / Time pravastatin Allergy Mild rash Verified 07/19/25 06:16 Active Medications: Current Medications Acetaminophen (Acetaminophen 325 Mg Tablet) 650 mg PO Q6H PRN PRN Reason: Pain, Mild 1-3,fever,headache Acyclovir (Acyclovir 200 Mg Capsule) 400 mg PO MOFR PRN PRN Reason: Outbreak Albuterol Sulfate (Albuterol Sulfate (0.083%) 2.5 Mg/3 Ml Vial.Neb) 2.5 mg INHALE Q4H PRN PRN Reason: Shortness Of Breath Or Wheezing Albuterol Sulfate (Albuterol Sulfate 90 Mcg 8 Gm Inhaler) 1 puff INHALE Q4H PRN PRN Reason: Shortness Of Breath Or Wheezing Apixaban (Apixaban 5 Mg Tablet) 5 mg PO BID [facility] Last Admin: 07/19/25 17:49 Dose: 5 mg Atorvastatin Calcium (Atorvastatin Calcium 40 Mg Tablet) 10 mg PO BEDTIME JORGE Bupropion HCl (Bupropion Hcl Xl 300 Mg Tab.Er.24h) 300 mg PO DAILY [facility] Last Admin: 07/19/25 12:54 Dose: 300 mg Celecoxib (Celecoxib 200 Mg Capsule) 200 mg PO BID JORGE Last Admin: 07/19/25 12:00 Dose: 200 mg Clonazepam (Clonazepam 0.5 Mg Tablet) 0.5 mg PO DAILY JORGE Last Admin: 07/19/25 12:01 Dose: 0.5 mg Docusate Sodium (Docusate Sodium 100 Mg Capsule) 100 mg PO BID [facility] Last Admin: 07/19/25 12:00 Dose: 100 mg Ferrous Sulfate (Ferrous Sulfate 324 Mg Tablet.) 324 mg PO DAILY [facility] Last Admin: 07/19/25 12:54 Dose: 324 mg Gabapentin (Gabapentin 100 Mg Capsule) 100 mg PO BEDTIME [facility] Hydromorphone HCl (Hydromorphone Hcl 0.5 Mg/0.5 Ml Syringe) 0.25 mg IVPUSH Q4H PRN; Protocol PRN Reason: Pain, Severe (Pain Scale 7-10) Last Admin: 07/19/25 17:49 Dose: 0.25 mg Lactated Ringer's (Lr) 1,000 mls @ 100 mls/hr IVCONT .Q10H [facility] Last Admin: 07/19/25 18:34 Dose: Not Given Cefazolin Sodium/Dextrose (Ancef) 2 gm in 50 mls @ 100 mls/hr IV Q8H [facility] Stop: 07/20/25 13:59 Last Infusion: 07/19/25 15:23 Dose: Infused Lactated Ringer's (Lr) 1,000 mls @ 100 mls/hr IVCONT .Q10H [facility] Last Admin: 07/19/25 12:02 Dose: Not Given Vancomycin HCl 1,500 mg/ (Sodium Chloride) 500 mls @ 333.333 mls/hr IV POSTOP ONE Stop: 07/19/25 21:29 Last Admin: 07/19/25 19:52 Dose: 333.33 mls/hr Lamotrigine (Lamotrigine 100 Mg Tablet) 300 mg PO BEDTIME [facility] Magnesium Hydroxide (Milk Of Magnesia 30 Ml Oral.Susp) 30 ml PO DAILY PRN PRN Reason: Constipation Melatonin (Melatonin 3 Mg Tablet) 3 mg PO BEDTIME [facility] Melatonin (Melatonin 3 Mg Tablet) 6 mg PO BEDTIME PRN PRN Reason: Insomnia Methocarbamol (Methocarbamol 500 Mg Tablet) 500 mg PO TID [facility] Last Admin: 07/19/25 14:40 Dose: 500 mg Multivitamins/Vitamin C (Multivitamin Tablet) 1 tab PO BEDTIME [facility] Omeprazole (Omeprazole 20 Mg Capsule.) 20 mg PO DAILY@0630 [facility] Ondansetron HCl (Ondansetron Hcl 4 Mg/2 Ml Vial) 4 mg IVPUSH Q8H PRN PRN Reason: Nausea and Vomiting Oxycodone HCl (Oxycodone Hcl Er 10 Mg Tab.Er.12h) 10 mg PO BID [facility] Last Admin: 07/19/25 12:00 Dose: 10 mg Oxycodone HCl (Oxycodone Hcl Immed Release 5 Mg Tablet) 10 mg PO Q4H PRN PRN Reason: Pain, Moderate(Pain Scale 4-6) Last Admin: 07/19/25 19:53 Dose: 10 mg Sodium Chloride (0.9 % Sodium Chloride Flush 3 Ml Syringe) 3 ml IVFLUSH QSHIFT [facility] Last Admin: 07/19/25 15:42 Dose: Not Given Trazodone HCl (Trazodone Hcl 100 Mg Tablet) 200 mg PO BEDTIME [facility] Zolpidem Tartrate (Zolpidem Tartrate 5 Mg Tablet) 10 mg PO BEDTIME [facility] Home Medications ?Medication ?Instructions ?Recorded ?Confirmed ?Last Taken ?Type acyclovir 400 mg tablet 400 mg PO MOFR PRN Outbreak 09/06/21 07/15/25 03/12/25 History apixaban 5 mg tablet (Eliquis) 5 mg PO BID 09/06/2107/09/25 History bupropion HCl 300 mg 24 hr tablet, 300 mg PO DAILY 05/2007/15/25 07/18/25 History extended release omeprazole 20 mg tablet,delayed 20 mg PO DAILY@0630 07/15/25 07/19/25 05:30 History release trazodone 100 mg tablet 200 mg PO BEDTIME Insomnia 1 11/07/20 07/15/25 07/18/25 History zolpidem 10 mg tablet 10 mg PO BEDTIME Insomnia 07/15/25 07/18/25 History albuterol sulfate 90 mcg/actuation 90 mcg inhalation Q 4H PRN 01/17/23 07/15/25 07/18/25 History aerosol inhaler (Ventolin HFA) Shortness Of Breath Or Wheezing melatonin 3 mg tablet 3 mg PO BEDTIME 06/04/2407/18/25 History rosuvastatin 10 mg tablet 10 mg PO BEDTIME 06/04/2407/19/25 05:30 History tizanidine 4 mg tablet 4 - 8 mg PO BEDTIME PRN Pain 06/04/24 07/15/25 03/14/25 History clonazepam 0.5 mg tablet 0.5 mg PO DAILY 09/14/2407/18/25 History lamotrigine 150 mg tablet 300 mg PO BEDTIME 09/21/24 1 07/18/25 History albuterol sulfate 2.5 mg/3 mL 2.5 mg inhalation Q4H DE N 02/15/25 07/15/25 Unknown History (0.083 %) solution for nebulization Shortness Of Breat h Or Wheezing ferrous sulfate 325 mg (65 mg 325 mg PO DAILY 03/15/25 07/15/25 07/18/25 History iron) tablet (FeroSul) lsbcukic-ioa-lfkgp acid 0.4 1 tab PO BEDTIME 03/15/25 07/15/25 07/18/25 History mg-lycopene 300 mcg-lutein 250 mcg tablet (CertaVite Senior) celecoxib 200 mg capsule 200 mg PO QPM 07/01/2507/1507/13/25 History Physical Exam Vital Signs and Narrative: Vital Signs: Last Vital Signs Temp 97.4 F 07/19/25 16:17 Pulse 83 07/19/25 18:33 Resp 15 07/19/25 16:17 BP 131/74 07/19/25 18:33 Pulse Ox 95 07/19/25 16:17 O2 Del Method Room Air 07/19/25 16:02 O2 Flow Rate 2.0 07/19/25 11:48 BMI result Body Mass Index 32.0 General: AOx3, no acute distress Resp: CTA bilaterally CVS: S1, S2, RRR GI: +BS, NT, no distention Skin: Warm, dry Neuro: Cranial nerves II-XII grossly intact bilaterally. unable to dorsiflex or plantar flex R foot. sensation intact. able to move toes. Extremities: No pitting edema Psych: Appropriate affect Const: General: No confusion Orientation/consciousness: No confusion Neuro: General: No confusion Results Labs Labs: Laboratory Results - last 24 hr 07/19/25 06:30 Blood Type A Negative Antibody Screen NEGATIVE Assessment and Plan (1) Status post total right knee replacement: Status: Acute Plan Patient is a 65-year-old female with a past medical history significant for anxiety/depression, asthma/COPD overlap, migraines, PVD, HLD, HTN, GERD, paroxysmal atrial flutter on Eliquis, Tvlmv-Obwuegued-Nhwgz s/p loop recorder and ablation, and tobacco use disorder, no s/p R TKA today. s/p R TKA - POD 0 - plan per ortho anxiety/depression - continue bupropion, clonazepam, lamotrigine, trazodone, zolpidem Asthma/COPD overlap, no acute exacerbation - albuterol as needed PVD/HLD - statin HTN - amlodipine Paroxysmal a flutter - eliquis GERD - PPI Tobacco use disorder - nicotine gum Thank you for allowing me to participate in the pt's care. Signing off. Please contact the medical team if any questions or concerns.
--- NOTE | 2025-07-20 00:06 | PM.EVENT ---
Event Note Date of Service: 07/20/25 Event Note: alerted that pt was ringing the call krueger button on the bed, which does not work, so she got out of bed on her own to urinate on the commode and fell. she states she fell onto her right hip and right wrist. rating pain 9/10 in upper right leg and right wrist. states she did not fall onto her knee. she is able to move the wrist without dififculty or increased pain. ordered xrays R wrist, R hip and R femur due to 9/10 pain and fall. discussed importance of not getting out of bed without help. she is aware of which call krueger to use. fall precautions. Time Spent With Patient Time: Total time managing care of this patient today ____ minutes.
--- NOTE | 2025-07-20 02:20 | PC.NURSE ---
07/19/252324 bed alarm was going off and pt was found sitting on the floor next to her bed .Pt stated that she had to use the commode and pressed the call krueger on the bed,which does not work.She could not wait any longer and got OOB by herself and fell on her bottom and right hip and braced her fall with her right hand.VSSHELEN and sterile supervisor Justa Gillette notified.Laurel came to the room to examine the pt. and ordered x-rays of the right wrist, r hip and r femur.Pt insrtucted to use the other call krueger and not to get OOB by herself.bed alarm on and call krueger within reach.
[2025-07-20 03:00] VITALS: BP 139/66; PULSE 74; RESP 18; TEMP 36.1; O2SAT 93
[2025-07-20 05:38] LABS: Hematocrit 36.7 % (37.0-47.0); Hemoglobin 11.9 g/dl (12.0-16.0); Imm Gran Abs Auto 0.05 X10*3/uL (0.00-0.03); Imm Gran Pct Auto 0.4 % (0.0-0.4); Lymphocytes Absolute Auto 2.5 X10*3/uL (1.2-4.9); MANUAL DIFF FLAG SCAN; Mean Corpuscular HGB Conc 32.4 g/dl (31.0-35.0); Mean Corpuscular Hemoglobin 29.0 pg (27.0-33.0); Mean Corpuscular Volume 89.3 fL (80.0-98.0); NRBC Abs Auto 0.000 X10*3/uL (0.0-0.012); NRBC Pct Auto 0.0 /100WBC (0.0-0.2); Platelet Count 240 X10*3/uL (160-400); Red Blood Count 4.11 X10*6/uL (4.20-5.50); SCAN SMEAR FLAG 1; White Blood Count 13.5 X10*3/uL (4.8-10.8)
[2025-07-20] MEDS: oxyCODONE HCl Immed Release 5 MG TABLET 10 MG PO ×2 (05:44→12:27)
[2025-07-20 05:49] LABS: Anion Gap 11 (12-20); Blood Urea Nitrogen 6 mg/dL (9-16); Calcium 8.7 mg/dL (8.4-10.2); Carbon Dioxide 25 mmol/L (22-29); Chloride 110 mmol/L (96-108); Creatinine Clr Calc Pharmacy 80.0; Estimated Glomerular Filt Rate > 60; Potassium 3.8 mmol/L (3.3-5.1); Sodium 142 mmol/L (135-145)
[2025-07-20 07:00] VITALS: BP 138/67; PULSE 76; RESP 17; TEMP 36.1; O2SAT 94
[2025-07-20] MEDS: Ferrous Sulfate 324 MG TABLET.DR PO (07:59)
[2025-07-20] MEDS: oxyCODONE HCl ER 10 MG TAB.ER.12H PO (07:59)
[2025-07-20] MEDS: buPROPion HCl XL 300 MG TAB.ER.24H PO (07:59)
--- NOTE | 2025-07-20 08:25 | HO.POSTANES ---
Post Anesthesia Evaluation Post Anesthesia Evaluation Date of Service: 07/20/25 Vital Signs: Vital Signs Temp Pulse Resp BP Pulse Ox O2 Del Method 07/20/25 07:00 97.0 F 76 17 138/67 94 Room Air 07/20/25 03:00 97.0 F 74 18 139/66 93 Room Air 07/19/25 23:30 80 18 114/69 93 Room Air 07/19/25 22:00 97.2 F 79 18 130/59 L 96 Room Air Anesthesia: Spinal Mental Status: Awake Pain Control: Satisfactory Nausea/Vomiting: None Hydration: Adequate Anesthesia-Related Issues: No Anes. Related Issues
--- NOTE | 2025-07-20 10:33 | MHC.CM.PN ---
pt dcd home with hvns pt has own trnapstation
[2025-07-20 12:09] VITALS: BP 160/90; PULSE 76; RESP 18; TEMP 36.1; O2SAT 95
--- NOTE | 2025-07-20 12:59 | PC.NURSE ---
Pt states understanding with d/c, IV removed, to be brought down stairs via W/C when ride is here.
--- NOTE | 2025-07-21 13:22 | W.MHC.F2F ---
Service Date Service Date: 07/21/25 Encounter Date of encounter: 07/20/25 Reasons for Services Signs and symptoms assessed: s/p RTKA Pt. is considered homebound due to recent surgery. Unable to drive, poor balance, poor gait mechanics. Reason for physical therapy: home safety and mobility, therapeutic exercises, restore joint function, gait/transfer training and ADL training Homebound: Leaving the home is medically contraindicated at this time without the asist of a device and/or another person due th the listed conditions above and below. Reason homebound: unsteady gait / fall risk, leg weakness, pain with ambulation, pain with transfers, poor balance / fall risk and unable to drive Certification: Based on the above findings, I certify that this patient is confined to the home and needs intermittent halfway care, physical therapy and/or speech therapy, or continues to need occupational therapy. The patient is under my care, and I have initiated the establishment of the plan of care. The patient will be followed by a physician who will periodically review the plan of care. Time Spent With Patient Time: Total time managing care of this patient today ____ minutes.
== END 2025-07-20 14:09 | disposition home health service (06) ==
LOC: HO.SSS 05:56 → HO.S3 09:44
PROVIDERS: Physician Assistant; PCP Physician Assistant Medical; Visit Provider Orthopaedic Surgery
PROC: (CPT 27447; principal; 2025-07-19 07:30)
DX: M17.11 Unilateral primary osteoarthritis, right knee (principal); M25.561 Pain in right knee; M25.551 Pain in right hip; M25.531 Pain in right wrist; W01.0XXA Fall on same level from slipping, tripping and stumbling without subsequent striking against object, initial encounter; Y93.89 Activity, other specified; Y92.231 Patient bathroom in hospital as the place of occurrence of the external cause; Y99.9 Unspecified external cause status; I10 Essential (primary) hypertension; I45.6 Pre-excitation syndrome; I48.0 Paroxysmal atrial fibrillation; J44.9 Chronic obstructive pulmonary disease, unspecified; E78.00 Pure hypercholesterolemia, unspecified; I73.9 Peripheral vascular disease, unspecified; F32.A Depression, unspecified; G43.909 Migraine, unspecified, not intractable, without status migrainosus; Z79.01 Long term (current) use of anticoagulants; Z79.899 Other long term (current) drug therapy; Z99.89 Dependence on other enabling machines and devices; Z88.8 Allergy status to other drugs, medicaments and biological substances; Z95.818 Presence of other cardiac implants and grafts; Z96.652 Presence of left artificial knee joint; Z96.643 Presence of artificial hip joint, bilateral; Z90.49 Acquired absence of other specified parts of digestive tract; Z98.890 Other specified postprocedural states; F17.210 Nicotine dependence, cigarettes, uncomplicated
CPT/HCPCS: 27447; 36415; 73110; 73552; 80048; 85025; 86850; 86900; 86901; 87640; 87641; 88305; 88311; 97110; 97116; 97161; C1776; J0131; J0665; J0690; J1100; J1171; J2003; J2151; J2250; J2405; J2704; J3374; J7120

== ENCOUNTER → 2025-07-19 05:56 | Outpatient (BNV) | payer MEDICARE, MEDICAID, SELFPAY | PROVIDERS: PCP Physician Assistant Medical; Visit Provider Orthopaedic Surgery | DX: M17.11 Unilateral primary osteoarthritis, right knee (principal) | CPT/HCPCS: 27447 ==

== ENCOUNTER → 2025-07-19 05:56 | Outpatient (BNV) | payer MEDICARE, MEDICAID, SELFPAY | PROVIDERS: PCP Physician Assistant Medical; Visit Provider Physician Assistant | DX: Z96.651 Presence of right artificial knee joint (principal) | CPT/HCPCS: 99222; 99499 ==

== ENCOUNTER → 2025-07-20 | Outpatient (BNV) | payer MEDICARE, MEDICAID, SELFPAY | PROVIDERS: PCP Physician Assistant Medical; Visit Provider Radiology Diagnostic Radiology | DX: M79.651 Pain in right thigh (principal); M25.531 Pain in right wrist; Z96.651 Presence of right artificial knee joint; W19.XXXA Unspecified fall, initial encounter | CPT/HCPCS: 73110; 73552 ==

== ENCOUNTER 2025-07-23 21:30 | Emergency (ER) | payer MEDICARE, MEDICAID, SELFPAY ==
--- NOTE | ~2025-07-23 | XR_ITS ---
CLINICAL HISTORY: post TKA pain, swelling Exam: AP and cross-table lateral views of the right knee. Comparison: Right femur radiographs july 19, 2025. Findings: Right total knee arthroplasty is unchanged in position and alignment compared to the patient's prior study. No fracture or abnormal lucency is seen adjacent to the surgical hardware. Anterior cutaneous annika remain in place. Continued anterior soft tissue swelling with moderate-sized knee joint effusion. Impression: Anterior soft tissue swelling with moderate-sized knee joint effusion. No fracture around the patient's right knee arthroplasty seen. This document has been electronically signed by: Saulo Mccoy MD on 07/23/2025 22:58:18
[2025-07-23 21:37] VITALS: BP 125/60; PULSE 96; O2SAT 96
[2025-07-23 21:40] VITALS: BP 160/67; PULSE 90; RESP 18; TEMP 37.2; O2SAT 96; BMI 31.9
--- NOTE | 2025-07-23 21:58 | ED.LOWEXIN ---
HPI - Extremity Injury (Lower) General Chief Complaint: Extremity Injury, Lower Stated Complaint: R knee pain, knee replacement done Saturday Time Seen by Provider: 07/23/25 21:57 History of Present Illness ED Provider: RADHA HPI Narrative: [age] female here for swollen red hot knee postop. Reports rather abrupt onset of pain over last 24 hours with increased redness and warmth around the wound. Pain not controlled with the oxycodone 10 mg at home. Related Data Home Medications ?Medication ?Instructions ?Recorded ?Confirmed acyclovir 400 mg tablet 400 mg PO MOFR PRN Outbreak 09/06/21 07/23/25 apixaban 5 mg tablet (Eliquis) 5 mg PO BID 09/06/21 07/23/25 bupropion HCl 300 mg 24 hr tablet, 300 mg PO DAILY 09/06/21 07/23/25 extended release omeprazole 20 mg tablet,delayed 20 mg PO DAILY@0630 09/06/21 07/23/25 release trazodone 100 mg tablet 200 mg PO BEDTIME Insomnia 09/06/21 07/23/25 zolpidem 10 mg tablet 10 mg PO BEDTIME Insomnia 09/06/21 07/23/25 albuterol sulfate 90 mcg/actuation 90 mcg inhalation Q4H PRN 01/17/23 07/23/25 aerosol inhaler (Ventolin HFA) Shortness Of Breath Or Wheezing melatonin 3 mg tablet 3 mg PO BEDTIME 06/04/24 07/23/25 rosuvastatin 10 mg tablet 10 mg PO BEDTIME 06/04/24 07/23/25 tizanidine 4 mg tablet 4 - 8 mg PO BEDTIME PRN Pain 06/04/24 07/23/25 clonazepam 0.5 mg tablet 0.5 mg PO DAILY 09/14/24 07/23/25 lamotrigine 150 mg tablet 300 mg PO BEDTIME 09/21/24 07/23/25 albuterol sulfate 2.5 mg/3 mL 2.5 mg inhalation Q4H PRN 02/15/25 07/23/25 (0.083 %) solution for nebulization Shortness Of Breath Or Wheezing ferrous sulfate 325 mg (65 mg 325 mg PO DAILY 03/15/25 07/23/25 iron) tablet (FeroSul) zkywxxso-gpz-yhmhj acid 0.4 1 tab PO BEDTIME 03/15/25 07/23/25 mg-lycopene 300 mcg-lutein 250 mcg tablet (CertaVite Senior) Previous Rx's ?Medication ?Instructions ?Recorded walker #1 ea 01/29/25 walker #1 ea 05/10/25 oxycodone 5 mg tablet 5 mg PO Q12H PRN pain #30 tabs 07/05/25 acetaminophen 325 mg tablet 650 mg (2 x 325 mg) PO Q6H PRN 07/20/25 Pain, Mild 1-3,Fever,Headache 30 days #240 tabs celecoxib 200 mg capsule 200 mg PO BID 30 days #60 caps 07/20/25 docusate sodium 100 mg capsule 100 mg PO BID 30 days #60 caps 07/20/25 gabapentin 100 mg capsule 100 mg PO BEDTIME 7 days #7 caps 07/20/25 methocarbamol 500 mg tablet 500 mg PO TID 7 days #21 tabs 07/20/25 nicotine (polacrilex) 2 mg gum 2 mg buccal Q2H PRN Nicotine 07/20/25 Cravings 30 days #360 ea oxycodone 10 mg tablet 10 mg PO Q4H PRN Pain, 07/20/25 Moderate(Pain Scale 4-6) 7 days #42 tabs sulfamethoxazole 800 1 tab PO BID 7 days #14 tabs 07/20/25 mg-trimethoprim 160 mg tablet (Bactrim DS) Allergies Allergy/AdvReac Type Severity Reaction Status Date / Time pravastatin Allergy Mild rash Verified 07/23/25 21:42 [facility] Past Medical History Medical History Depression Asthma Migraines PVD (peripheral vascular disease) Elevated cholesterol COPD (chronic obstructive pulmonary disease) HTN (hypertension) Arthritis GERD (gastroesophageal reflux disease) Paroxysmal atrial flutter Status post placement of implantable loop recorder WPW (Zuqor-Tgukhhkvq-Ngtoi syndrome) Surgical History Status post total left knee replacement (~03/15/25) History of hip surgery Hx of cholecystectomy History of cardiac radiofrequency ablation H/O colonoscopy History of hip surgery History of hip surgery History of back surgery Hx of neck surgery Family History Family History Father HTN (hypertension) Mother HTN (hypertension) Social History Social History Housing Other:: mobile home Are you a primary director medicare sales to a significant other at home: No Do you presently have visiting nurse or other home services: Yes ([employer]) Patient Tobacco Use Status: Current everyday Tobacco user Tobacco use type: Cigarette Cigarettes Per Day: 5 Years Smoked: 50 Advance Directives Date on File: 03/17/25 service: No Current occupational status: disabled Current occupation: Right hand dominate Physical Exam Exam: Exam: EXAM: Gen: Alert, awake, well appearing, well hydrated. Head: Atraumatic Eyes: Anicteric, Normal conjunctiva. ENT: Moist mucosa, no pallor. ? Neck: Supple. Skin: ?No observable rash or bruising on exposed or examined skin Respiratory: Breathing comfortably, No distress.Clear to auscultation bilaterally, symmetric chest expansion, No wheeze, rales, ronchi. Cardiovascular: Regular rate and rhythm. No murmurs or rub. Well perfused periphery, warm extremities. No edema. ? Abdominal: No focal tenderness. Soft, no objective distension. No palpable masses or obvious organomegaly. ?No guarding, no rebound tenderness or other peritoneal findings. : No flank tenderness. Neuro: Alert. Gross movement of all extremities intact. ? Psych: Calm. Cooperative. MSK: No grossly visible deformity. Diffuse swelling of the right lower extremity from the proximal thigh to the ankle. Scattered erythema mostly about the medial aspect of the knee. Postop bandage still in place I did not remove this. See photo for details Compartments soft compressible throughout the lower leg distal neurovascular exam and reassuring. Vital signs: See flowsheet Vital Signs: Vital Signs: Last Vital Signs Temp 98.4 F 07/24/25 12:19 Pulse 74 07/24/25 12:19 Resp 12 07/24/25 12:19 BP 120/57 L 07/24/25 12:19 Pulse Ox 93 07/24/25 12:19 O2 Del Method Room Air 07/24/25 12:19 O2 Flow Rate 2 07/24/25 06:06 BMI result Body Mass Index 31.9 Course Course Course Narrative: Time: 12:02 Date: 07/24/25 Provider: Geovanni Diaz MD Patient was seen by orthopedic physician insurance claims assistant, Nadia Mcconnell and I did review her consult note. At this time, she felt that the patient's findings were more consistent with acute hematoma of the right knee region status post right knee replacement. Therefore, the patient will not be started on antibiotics and will be discharged home. Recommendation was to follow up with Orthopedics at her next normal scheduled appointment. Therefore the patient was discharged home. Medications Administered Discontinued Medications Generic Name Dose Route Start Last Admin Trade Name Freq PRN Reason Stop Dose Admin Acetaminophen 975 mg 07/23/25 23:40 07/24/25 00:04 Acetaminophen 325 Mg Tablet PO 07/23/25 23:41 975 mg ONCE ONE Administration Apixaban 5 mg 07/24/25 01:45 07/24/25 09:06 Apixaban 5 Mg Tablet PO 5 mg BID JORGE Administration Atorvastatin Calcium 40 mg 07/24/25 01:45 07/24/25 02:42 Atorvastatin Calcium 40 Mg Tablet PO 40 mg BEDTIME JORGE Administration Bupropion HCl 300 mg 07/24/25 09:00 07/24/25 09:05 Bupropion Hcl Xl 300 Mg Tab.Er.24h PO 300 mg DAILY JORGE Administration Celecoxib 200 mg 07/24/25 01:45 07/24/25 09:06 Celecoxib 200 Mg Capsule PO 200 mg BID JORGE Administration Clonazepam 0.5 mg 07/24/25 09:00 07/24/25 09:05 Clonazepam 0.5 Mg Tablet PO 0.5 mg DAILY JORGE Administration Docusate Sodium 100 mg 07/24/25 01:45 07/24/25 09:05 Docusate Sodium 100 Mg Capsule PO 100 mg BID JORGE Administration Ferrous Sulfate 324 mg 07/24/25 09:00 07/24/25 09:05 Ferrous Sulfate 324 Mg Tablet. PO 324 mg DAILY JORGE Administration Hydromorphone HCl 1 mg 07/23/25 22:29 07/23/25 22:35 Hydromorphone Hcl 1 Mg/Ml Syringe IVPUSH 07/23/25 22:30 1 mg ONCE ONE Administration Protocol Hydromorphone HCl 2 mg 07/23/25 22:45 07/24/25 01:25 Hydromorphone Hcl 2 Mg Tablet PO 07/25/25 22:44 2 mg QID PRN Administration Pain, Moderate(Pain Scale 4-6) Lamotrigine 300 mg 07/24/25 02:30 07/24/25 02:42 Lamotrigine 100 Mg Tablet PO 300 mg BEDTIME JORGE Administration Melatonin 3 mg 07/24/25 01:45 07/24/25 02:42 Melatonin 3 Mg Tablet PO 3 mg BEDTIME JORGE Administration Methocarbamol 500 mg 07/24/25 01:45 07/24/25 09:06 Methocarbamol 500 Mg Tablet PO 500 mg TID JORGE Administration Omeprazole 20 mg 07/24/25 06:30 07/24/25 06:20 Omeprazole 20 Mg Capsule. PO 20 mg DAILY@0630 JORGE Administration Trazodone HCl 200 mg 07/24/25 01:45 07/24/25 02:43 Trazodone Hcl 100 Mg Tablet PO 200 mg BEDTIME JORGE Administration Trimethoprim/Sulfamethoxazole 1 tab 07/23/25 22:45 07/24/25 09:05 Sulfamethox/Trimeth 800/160 Tablet PO 07/26/25 08:59 1 tab BID JORGE Administration Trimethoprim/Sulfamethoxazole 1 tab 07/24/25 01:45 07/24/25 09:07 Sulfamethox/Trimeth 800/160 Tablet PO Not Given BID JORGE Zolpidem Tartrate 10 mg 07/24/25 01:45 07/24/25 02:42 Zolpidem Tartrate 5 Mg Tablet PO 10 mg BEDTIME JORGE Administration Medical Decision Making Medical Decision Making MDM Narrative: Medical Decision Making: [age] female 5 days postop from right TKA. Patient reports subjective fever, swelling redness and warmth that is rather abrupt onset over the past about 24 hours with increasing pain not controlled by oxycodone at home 10 mg. On exam the patient has temperature of 100.0 degrees rectal no tachycardia and no hypotension. She does not have leukocytosis. The leg is somewhat warm and swollen diffusely. This could resemble typical normal postop process in a patient who restarted apixaban after the surgery but can not entirely exclude DVT or infectious process ongoing. Orthopedics was consulted they are not currently in-house. Current recommendations were initiating Bactrim getting DVT ultrasound and together we decided was reasonable to hold the patient overnight for in person orthopedic consultation in the ED tomorrow morning. I have started Bactrim. The patient does not meet sepsis criteria at this time. Pain control with IV and then deescalate to oral Dilaudid PRN Point of care ultrasound excludes DVT at the bedside slight limitation of distal femoral vein obscured due to body habitus and postoperative swelling. Popliteal is patent and compressible. Orthopedic team may wish to get a comprehensive radiology Doppler if desired. Preliminary Favored Differential Diagnosis: DVT, postop infection, hematoma among additional considered etiologies Testing Interpreted Independently: No leukocytosis. Non actionable chemistry. Non actionable x-ray of the right knee Radiology or Lab testing Results Reviewed: ?See below for details Consults: Orthopedics consulted Independent Historians/External Chart Reviews: ?See below for details Social Determinants of Health Impacting MDM/Planning: ?See below for details Lab Data 07/23/25 21:48 07/23/25 21:48 Labs: Lab Results 07/23/25 07/23/25 Range/Units 21:48 22:06 WBC 10.1 (4.8-10.8) X10*3/uL RBC 3.90 L (4.20-5.50) X10*6/uL Hgb 11.5 L (12.0-16.0) g/dl Hct 34.5 L (37.0-47.0) % MCV 88.5 (80.0-98.0) fL MCH 29.5 (27.0-33.0) pg MCHC 33.3 (31.0-35.0) g/dl RDW 13.8 (11.0-16.0) % Plt Count 309 D (160-400) X10*3/uL MPV 9.5 (9.4-12.3) fL Immature Gran % (Auto) 0.2 (0.0-0.4) % Neut % (Auto) 52.6 (45-73) % Lymph % (Auto) 31.9 (20-40) % Juncos % (Auto) 11.2 H (2-11) % Eos % (Auto) 3.3 (0-4) % Baso % (Auto) 0.8 (0-2) % Lymph # (Auto) 3.2 (1.2-4.9) X10*3/uL [place] # (Auto) 1.1 (0.1-1.2) X10*3/uL Eos # (Auto) 0.3 (0.0-0.4) X10*3/uL Baso # (Auto) 0.1 (0.0-0.2) X10*3/uL Abs Immat Gran (auto) 0.02 (0.00-0.03) X10*3/uL Absolute Neuts (auto) 5.3 (2.0-8.3) x10*3/uL Absolute Nucleated RBC 0.000 (0.0-0.012) X10*3/uL Nucleated RBC % (auto) 0.0 (0.0-0.2) /100WBC ESR 77 H (0-20) MM/HR Sodium 139 (135-145) mmol/L Potassium 3.7 (3.3-5.1) mmol/L Chloride 103 (96-108) mmol/L Carbon Dioxide 28 (22-29) mmol/L Anion Gap 12 (12-20) BUN 9 (9-16) mg/dL Creatinine 0.90 (0.5-1.4) mg/dL Estim Creat Clear Calc 63.8 Estimated GFR > 60 Random Glucose 73 (60-115) mg/dL Lactic Acid 1.0 (0.5-2.0) mmol/L Calcium 9.2 (8.4-10.2) mg/dL Total Bilirubin 0.5 (0.0-1.0) mg/dL AST 67 H (5-31) U/L ALT 55 H (0-31) U/L Alkaline Phosphatase 171 H (39-117) U/L C-Reactive Protein 11.14 H (< or = 0.50) mg/dL Total Protein 6.9 (6.5-8.0) g/dL Albumin 3.9 (3.5-5.0) g/dL Procedures Procedure Narrative Procedure Narrative: EMERGENCY ULTRASOUND INTERPRETATION-Limited Point of Care Venous (DVT) [This study was ordered, performed, and interpreted by myself. The study reveals: Impression: NO EVIDENCE OF DVT. I RECOMMENDED TO THE PATIENT REPEAT ULTRASOUND IN ONE WEEK IF SYMPTOMS PERSIST.] [Indication: Laterality: RIGHT Common Femoral: -Full Compressibility: YES -Clot Seen: NO Superficial Femoral: -Full Compressibility: YES -Clot Seen: NO Popliteal: -Full Compressibility: YES -Clot Seen: NO Other: Limited due to nonvisualization of distal aspect of the right superficial femoral vein secondary to body habitus and/or postoperative swelling. Performed by: Tera Florez MD Images were stored CPT: 82177] Discharge Plan Discharge Clinical Impression: Hematoma of right knee region Patient Disposition: Home, Self-Care Instructions: Contusion in Adults (ED) Additional Instructions: You were seen by the orthopedic physician insurance claims assistant, Nadia Mcconnell. Based on her consult note, she does not think that you have an infection at this time but you probably have a hematoma (collection of blood) in the knee area which explains your findings. The hematoma does not need any further treatment at this time. Continued with your postop instructions. Keep your follow-up appointment with the orthopedic group. Continue taking medications as prescribed by your providers. Follow-up with your doctor in 2 days. Please return to the emergency department if your symptoms get worse or if you develop any symptoms that are concerning to you. Prescriptions: No Action (DME) walker Misc See Rx Instructions .ROUTE .MEDSUPPLY Qty: 1 0RF Rx Instructions: Folding front wheeled walker (DME) walker Misc See Rx Instructions .MEDSUPPLY Qty: 1 0RF Rx Instructions: Folding front wheeled walker oxycodone 5 mg tablet 5 mg PO Q12H PRN (Reason: pain) Qty: 30 0RF Rx Instructions: Partial Fill upon patient request. lamotrigine 150 mg Tablet 300 mg PO BEDTIME albuterol sulfate 2.5 mg /3 mL (0.083 %) Solution For Nebulization 2.5 mg INHALATION Q4H PRN (Reason: Shortness Of Breath Or Wheezing) ferrous sulfate [FeroSul] 325 mg (65 mg iron) tablet 325 mg PO DAILY CertaVite Senior 0.4 mg-300 mcg- 250 mcg tablet 1 tab PO BEDTIME celecoxib 200 mg Capsule 200 mg PO BID 30 Days Qty: 60 0RF methocarbamol 500 mg Tablet 500 mg PO TID 7 Days Qty: 21 0RF acetaminophen 325 mg Tablet 650 mg PO Q6H PRN (Reason: Pain, Mild 1-3,Fever,Headache) 30 Days Qty: 240 0RF nicotine (polacrilex) 2 mg Gum 2 mg buccal Q2H PRN (Reason: Nicotine Cravings) 30 Days Qty: 360 0RF gabapentin 100 mg Capsule 100 mg PO BEDTIME 7 Days Qty: 7 0RF oxycodone 10 mg tablet 10 mg PO Q4H PRN (Reason: Pain, Moderate(Pain Scale 4-6)) 7 Days Qty: 42 0RF Rx Instructions: Partial Fill upon patient request. docusate sodium 100 mg Capsule 100 mg PO BID 30 Days Qty: 60 0RF sulfamethoxazole-trimethoprim [Bactrim DS] 800-160 mg tablet 1 tab PO BID 7 Days Qty: 14 0RF albuterol sulfate [Ventolin HFA] 90 mcg/actuation HFA aerosol inhaler 90 mcg inhalation Q4H PRN (Reason: Shortness Of Breath Or Wheezing) Eliquis 5 mg tablet 5 mg PO BID omeprazole 20 mg tablet,delayed release (DR/EC) 20 mg PO DAILY@0630 acyclovir 400 mg tablet 400 mg PO MOFR PRN (Reason: Outbreak) zolpidem 10 mg tablet 10 mg PO BEDTIME bupropion HCl 300 mg tablet extended release 24 hr 300 mg PO DAILY trazodone 100 mg tablet 200 mg PO BEDTIME melatonin 3 mg tablet 3 mg PO BEDTIME tizanidine 4 mg tablet 4 - 8 mg PO BEDTIME PRN (Reason: Pain) rosuvastatin 10 mg tablet 10 mg PO BEDTIME clonazepam 0.5 mg tablet 0.5 mg PO DAILY Interventions: ED Discharge Assessment Last Done: 07/24/25 12:19 Discharge Date/Time: 07/24/25 12:19 Print Language: German
[2025-07-23 21:59] LABS: Hematocrit 34.5 % (37.0-47.0); Hemoglobin 11.5 g/dl (12.0-16.0); Imm Gran Abs Auto 0.02 X10*3/uL (0.00-0.03); Imm Gran Pct Auto 0.2 % (0.0-0.4); Lymphocytes Absolute Auto 3.2 X10*3/uL (1.2-4.9); MANUAL DIFF FLAG NO; Mean Corpuscular HGB Conc 33.3 g/dl (31.0-35.0); Mean Corpuscular Hemoglobin 29.5 pg (27.0-33.0); Mean Corpuscular Volume 88.5 fL (80.0-98.0); NRBC Abs Auto 0.000 X10*3/uL (0.0-0.012); NRBC Pct Auto 0.0 /100WBC (0.0-0.2); Platelet Count 309 X10*3/uL (160-400); Red Blood Count 3.90 X10*6/uL (4.20-5.50); White Blood Count 10.1 X10*3/uL (4.8-10.8)
--- OUTSIDE RECORDS SUMMARY | 2025-07-23 22:06 | XMS_ITS | Data Portability ---
Author Organization [place] [facility] Address [address] [place] [address] Care Team Providers Care Cable Rigger Name Role Phone TANYA MA Primary Care [...] today. Time On Scene with Patient: 00:20:30 beatrice Not available 08/15/2019 22:02:07 Plan of Treatment Reminders Order Date Submit Date Provider Last Modified By Organization Details Last Modified Time Details Appointments None recorded. Lab rapid flu (A+B) 2018 019 [facility], [address] [place] [address] [place], [address], 9 19:27:45 Referral None recorded. Procedures None recorded. Surgeries None recorded. Imaging XR, chest, 2 view - [facility] 2018 [facility], [address] , [place], [address], 9 05:36:28 Medication Orders ipratropi um 0.5 mg-albute rol 3 mg (2.5 mg base)/3 mL nebulizat ion soln 2018 019 [facility]acy #0843, [address] [place], [address], 9 21:03:08 doxycycli ne hyclate 100 mg capsule 2018 019 [facility]/Pharmacy #0843, [address] [place], [address], 9 21:03:10 prednison e 20 mg tablet 2018 019 [facility]/Pharmacy #0843, [address] [place], [address], 9 21:03:10 prednison e 10 mg tablet 2018 019 [facility]/Pharmacy #0843, [address] [place], [address], 9 21:03:08 doxycycli ne hyclate 100 mg capsule 2018 019 [facility]/Pharmacy #0843, [address] [place] [address], [address], 9 21:03:08 Patient TargetsNo targets recorded. Patient Instructions Encounter Date Encounter Id Patient Instructions Last Modified By Organization Details Last Modified Time 08/11/2019 [id number] Viral Illness Discharge Instructions BASIC INFORMATION A [...] in your condition between 8am-10pm, please call [facility] at [phone] to help navigate your care. chito Not available 08/11/2019 19:28:10 08/15/2019 [id number] [facility] yo [facility] We cannot always find the exact [...] in your condition between 8am-10pm, please call [facility] at [phone] to help navigate your care. beatrice Not available 08/15/2019 21:03:05 Reason for Referral None Reported. Results Created Date Observation Date Name Description Value Unit Range Abnormal Flag Note LastModifiedBy Organization Detail LastModifiedTime 08/11/20 19 08/11/2019 rapid flu (A+B) Flu A negati ve Not Available [facility] [address] [place], [address], 08/11/2019 19:18:15 08/11/20 19 08/11/2019 rapid flu (A+B) Flu B negati ve Not Available [facility] [address] [place], [address], 08/11/2019 19:18:15 08/11/20 19 08/11/2019 rapid flu (A+B) Control Visual ized / Valid Not Available [facility] [address] [place], [address], 08/11/2019 19:18:15 Result Notes None recorded. Problems Name Problem SNOMED Code Status Onset Date Resolution Date Notes Provider Name and Address Organization Details Recorded Time Chronic obstructive pulmonary disease 96481639 Active 2018 OCTAVIO ROOT NP [address] [place], [address], [place] [facility] 9 21:03:35 Problem Notes None recorded. Procedures Surgical History Date Name Laterality Status Provider Name and Address Organization Details Recorded Time 9 Nebulizer treatment - DH completed OCTAVIO ROOT NP [address] [place], [address], [place] [facility] 08/15/2019 21:55:13 Imaging Results [...] blood by Pulse oximetry Body temperature Systolic And Diastolic Provider Name and Address Organization Details Last Updated DateTime 9 98 /min 18 /min 93 % 93 % 98.4 [degF] 106/58 mm[Hg] Not Available [facility] 9 19:02:55 Date Recorded Oxygen saturation Oxygen saturation in Arterial blood by Pulse oximetry Heart rate Body temperature Respiratory rate Systolic And Diastolic Provider Name and Address Organization Details Last Updated DateTime 9 94 % 94 % 78 /min 98.4 [degF] 20 /min 118/76 mm[Hg] Not Available [facility] 9 20:54:14 Social History Question Answer Notes LastModified by Organizat ion Details LastModified Time Tobacco Smoking Status Current Every Day Smoker HELEN BENSON [address] [place], [address], [place] [facility] 08/11/2019 19:06:46 Do You Have An Advance Directive? No Information not available 08/11/2019 What Is Your Code Status? Full Code Information not available 08/11/2019 Drugs Abused 0 Information not available 08/11/2019 How Many Days In The Past Year Have You Had A Heavy Drinking Consumption (4+ Female, 5+ Male)? 0 Information not available 08/11/2019 Marital Status Single Informatio n not available 08/11/2019 What Was The Date Of Your Most Recent Tobacco Screening? 08/11/2019 Information not available 08/11/2019 How Much Tobacco Do You Smoke? 0.5 PPD Information not available 08/11/2019 How Many Years Have You Smoked Tobacco? 14 Information not available 08/11/2019 Sex: Unknown Functional Status Question Answer Note LastModified by Organizat ion Details LastModified Time Do you or have you ever used smokeless tobacco? Never used smokeless tobacco Information not available 08/11/2019 Do you or have you ever used e-cigarettes or vape? Former user of electronic cigarettes Information not available 08/11/2019 Mental Status None recorded. Family History Relationship Description Onset Age of this Age Resolved Age Notes LastModified by Organization Details LastModified Time Maternal Grandmother Malignant neoplasm of breast lsaloio Not available 2018 19:04:58 Medical History Condition Response Diabetes N Coronary Artery Disease N High Cholesterol N Pulmonary Embolism N Cancer N Hypertension N Stroke N Asthma N COPD Y Depression Y Kidney Disease N Gynecological HistoryNo gynecological history recorded. Obstetrics History GPAL:G 0 P 0 0 0 0 Past Encounters Encounter ID Performer Location Encounter Start Date Encounter Closed Date Diagnosis/Indication Diagnosis SNOMED-CT Code Diagnosis ICD10 Code Diagnosis IMO Codes Diagnosis Note [id number] HELEN BENSON [facility] [address] [place] [address] 08/11/2019 18:51:44 08/11/2019 20:54:03 Viral respiratory infection 798750672 J06.9 [id number] OCTAVIO ROOT NP [facility] [address] [place] [address] 08/15/2019 20:50:34 08/15/2019 22:02:14 Community acquired pneumonia 284455532 J18.9 Health Concerns Section Related Observation LastModified by Organization Detai ls LastModified Time None Recorded Concern Status LastModified by Organization Details LastModified Time None Recorded Advance Directives Directive N: Payers Insurance Date Sequence Insurance Name Policy Number Policy Gutiérrez Covered Member ID Gutiérrez Member ID Guarantor Name 08/11/2019 1 *SELF PAY* Laura Marylou [id number] Laura Marylou 08/13/2019 1 [place]IC[place] B-[place] [employer] Laura M Marylou [id number] Laura Marylou 08/11/2019 2 [place] [facility] Laura Marylou [id number] Laura Marylou Notes Date Note Type Note Provider Name and Address Organization Details Recorded Time 08/11/2019 text/html 59-year-old female with COPD, presents for evaluation cold symptoms. Reports 4 days of cough, runny nose, fever. Reports fever of 102.7 degrees Fahrenheit last night for which she used DayQuil and states last Tylenol use was approximately 2 hours prior to exam. Denies chest pain, shortness breath, ear pain, sore throat, sinus congestion. HELEN BENSON [address], [place], [address], [place] [facility] 08/11/2019 20:54:01 08/15/2019 text/html Pt was seen 4 days ago for the same c/o cough. At [...] weak, her nose is still running. OCTAVIO ROOT NP [address], [place], [address], [place] [facility] 08/15/2019 22:02:12 OBGyn Episode No OBEpisode recorded.
--- OUTSIDE RECORDS SUMMARY | 2025-07-23 22:06 | XMS_ITS | Clinical Summary ---
Author Organization [facility] Address [address] [place] [address] Care Team Providers Care Injection Moulding Machine Operator Name Role Phone Hosea Douglas PA-C Primary [...] age to complete this topic Care Teams Injection Moulding Machine Operator Relationship Specialty Start Date End Date Hosea Douglas PA-C PCP - General Medical Services 12/11/21
--- OUTSIDE RECORDS SUMMARY | 2025-07-23 22:07 | XMS_ITS | Encounter Summary ---
Author Organization [facility] Address [address] [place] [address] Care Team Providers Care Director Of Agronomy Name Role Phone Hosea Douglas Primary Care Provider [phone] Encounter Details Date Type Department Care Team ([facility] Contact Info) Description 07/01/2025 Results Follow-Up Adult Medicine [facility] [address], [place] [phone] Jayme Kenyon MD [address], [place] Social History Tobacco Use Types Packs/Day [...] PM EST Office Visit Orthopedic Surgery - [place] [id number] [phone] Kamar Smith DPM [address] [address] documented as of this encounter Visit Diagnoses Not on filedocumented in this encounter Care Teams Director Of Agronomy Relationship Specialty Start Date End Date Hosea Douglas PA [address] [place] [address] PCP - General Internal Medicine 02/01/21 documented as of this encounter
--- OUTSIDE RECORDS SUMMARY | 2025-07-23 22:07 | XMS_ITS | Data Portability ---
Author Organization [facility] UROLOGY Address [address] [facility] [address] [place] [address] Care Team Providers Care Inpatient Auditor Name Role Phone NONE, LISTED Primary Care [...] - s/p left THR on 01/08/22 in [place] - surgical wound infection - possible prosthetic [...] - s/p left THR on 01/08/22 in [place] - surgical wound infection - possible prosthetic [...] auto diff 2021 022 [email or web address], [address] [place] [address], [address], 10:47:10 HbA1c (hemoglobi n A1c), blood 2021 022 [email or web address], [address] [place] [address], [address], 2 10:47:10 methicilli n resistant staphyloco ccus aureus, culture, nasal 2021 022 [email or web address], [address] [place] [address], [address], 2 10:47:10 type + screen, blood 2021 022 [email or web address], [address] [place] [address], [address], 2 10:47:10 CMP, serum or plasma 2021 022 JOSÉ MIGUEL [facility], [address] [place] [address], [address], 14:03:58 ESR (erythrocy te sedimentat ion rate), blood 2021 [facility], [address] [place] [address], 35[address], 13:29:45 C-reactive protein, quantitati ve, serum or plasma 2021 [email or web address], [address] [place] [address], 7[address], 08:04:31 CBC w/ auto diff 2021 [facility], [address] [place] [address], [address], 12:48:54 CMP, serum or plasma 2021 [facility], [address] [place] [address], [address], 13:26:12 ESR (erythrocy te sedimentat ion rate), blood 2021 [facility], [address] [place] [address], [address], 12:58:48 C-reactive protein, quantitati ve, serum or plasma [address] [facility], [address] [place] [address], [address], 07:18:26 Referral physical therapist referral 2021 [email or web address] Not available 11:50:50 Procedures None recorded. Surgeries total hip arthroplas ty, anterior approach (SURG) 2021 [email or web address] Not available 08:18:[address], hip, w/o contrast 2021 JOSÉ MIGUEL Not available 08/16/202 2 17:05:42 Medication Orders oxycodone 10 mg tablet 2021 022 JOSÉ MIGUEL [place], [place] - [id number], [address] [place], [address], 11:31:26 celecoxib 200 mg capsule 2021 022 [email or web address] [place] - [id number], [address] [place], [address], 2 12:52:05 Patient TargetsNo targets recorded. Patient [...] X10_3 /uL 4.5-11 .0 normal Not Available [place] [address] [employer] [address], [place], [address] 02/15/2022 11:45:46 02/16/20 22 02/15/2022 COMPL ETE BLOOD COUNT AUTO DIFF red blood count 4.55 X10_6 /uL 3.70-5 .00 normal Not Available [facility] [address] [facility] [address], [place], [address] 02/15/2022 11:45:46 02/16/2002/15/2022 COMPL ETE BLOOD COUNT AUTO DIFF hemoglobin 12.5 g/dL 11.0-1 6.0 normal Not Available [facility] [address] [employer] [address], [place], [address] 02/15/2022 11:45:46 02/16/2002/15/2022 COMPL ETE BLOOD COUNT AUTO DIFF hematocrit 41.1 % 33.5-4 5.0 normal Not Available [facility] [address] [employer] [address], [place], [address] 02/15/2022 11:45:46 02/16/20 22 02/15/2022 COMPL ETE BLOOD COUNT AUTO DIFF mean corpuscular volume 90.3 fL 80.0-1 00.0 normal Not Available [facility] [address] [facility] [address], [place], [address] 02/15/2022 11:45:46 02/16/20 22 02/15/2022 COMPL ETE BLOOD COUNT AUTO DIFF mean corpuscular hemoglobin 27.5 pg 27.0-3 4.0 normal Not Available [facility] [address] [address], [place], [address] 02/15/2022 11:45:46 02/16/20 22 02/15/2022 COMPL ETE BLOOD COUNT AUTO DIFF mean corpuscular HGB conc 30.4 g/dL 31.0-3 6.0 low Not Available [facility] [address] [address], [place], [address] 02/15/2022 11:45:46 02/16/20 22 02/15/2022 COMPL ETE BLOOD COUNT AUTO DIFF red cell distribution width 15.0 % 11.5-1 5.0 normal Not Available [facility] [address] [address], [place], [address] 02/15/2022 11:45:46 02/16/20 22 02/15/2022 COMPL ETE BLOOD COUNT AUTO DIFF platelet count 323 X10_3 /uL 150-40 0 normal Not Available [facility] [address] [address], [place], [address] 02/15/2022 11:45:46 02/16/20 22 02/15/2022 COMPL ETE BLOOD COUNT AUTO DIFF immature granulocytes % (auto) 0.2 % Not Available [facility] [address] [facility] [address], [place], [address] 02/15/2022 11:45:46 02/16/20 22 02/15/2022 COMPL ETE BLOOD COUNT AUTO DIFF neutrophils % (auto) 42.5 % Not Available [facility] [address] [facility] [address], [place], [address] 02/15/2022 11:45:46 02/16/20 22 02/15/2022 COMPL ETE BLOOD COUNT AUTO DIFF lymphocytes % (auto) 43.3 % Not Available [facility] [address] [facility] [address], [place], [address] 02/15/2022 11:45:46 02/16/20 22 02/15/2022 COMPL ETE BLOOD COUNT AUTO DIFF monocytes % (auto) 9.8 % Not Available [facility] [address] [address], [place], [address] 02/15/2022 11:45:46 02/16/20 22 02/15/2022 COMPL ETE BLOOD COUNT AUTO DIFF eosinophils % (auto) 3.7 % Not Available [facility] [address] [address], [place], [address] 02/15/2022 11:45:46 02/16/20 22 02/15/2022 COMPL ETE BLOOD COUNT AUTO DIFF basophils % (auto) 0.5 % Not Available [address] [address], [place], [address] 02/15/2022 11:45:46 02/16/20 22 02/15/2022 COMPL ETE BLOOD COUNT AUTO DIFF immature granulocytes # (auto) 0.02 X10_3 /uL 0.00-0 .09 normal Not Available [address] [address], [place], [address] 02/15/2022 11:45:46 02/16/20 22 02/15/2022 COMPL ETE BLOOD COUNT AUTO DIFF neutrophils # (auto) 4.2 X10_3 /uL 1.5-7. 8 normal Not Available [address] [address], [place], [address] 02/15/2022 11:45:46 02/16/20 22 02/15/2022 COMPL ETE BLOOD COUNT AUTO DIFF lymphocytes # (auto) 4.3 X10_3 /uL 1.0-4. 8 normal Not Available [facility] [address] [facility] [address], [place], [address] 02/15/2022 11:45:46 02/16/20 22 02/15/2022 COMPL ETE BLOOD COUNT AUTO DIFF monocytes # (auto) 1.0 X10_3 /uL 0.0-0. 8 high Not Available [facility] [address] [address], [place], [address] 02/15/2022 11:45:46 02/16/20 22 02/15/2022 COMPL ETE BLOOD COUNT AUTO DIFF eosinophils # (auto) 0.4 X10_3 /uL 0.0-0. 5 normal Not Available [facility] [address] [address], [place], [address] 02/15/2022 11:45:46 02/16/20 22 02/15/2022 COMPL ETE BLOOD COUNT AUTO DIFF basophils # (auto) 0.1 X10_3 /uL 0.0-0. 2 normal Not Available [facility] [address] [address], [place], [address] 02/15/2022 11:45:46 02/16/20 22 02/15/2022 COMPL ETE BLOOD COUNT AUTO DIFF nucleated RBC% 0.0 /100_ WBC 0.0-0. 0 normal Not Available [facility] [address] [address], [place], [address] 02/15/2022 11:45:46 02/16/20 22 02/15/2022 ERYTH ROCYT E SEDIM ENTAT ION RATE erythrocyte sedimentatio n rate 34 mm/HR 0-30 high Not Available [facility] [address] [address], [place], [address] 02/15/2022 11:59:22 02/16/20 22 02/15/2022 COMPR EHENS PARMINDER METAB OLIC PANEL sodium 138 mmol/ L 137-14 6 normal Not Available [facility] [address] [address], [place], [address] 02/15/2022 12:02:00 02/16/20 22 02/15/2022 COMPR EHENS PARMINDER METAB OLIC PANEL potassium,K 4.0 mmol/ L 3.5-5. 3 normal Not Available [facility] [address] [address], [place], [address] 02/15/2022 12:02:00 02/16/20 22 02/15/2022 COMPR EHENS PARMINDER METAB OLIC PANEL chloride 101 mmol/ L 98-107 normal Not Available [facility] [address] [address], [place], [address] 02/15/2022 12:02:00 02/16/20 22 02/15/2022 COMPR EHENS PARMINDER METAB OLIC PANEL carbon dioxide 28 mmol/ L 23-32 normal Not Available [facility] [address], [place], [address] 02/15/2022 12:02:00 02/16/20 22 02/15/2022 COMPR EHENS PARMINDER METAB OLIC PANEL anion gap 9 mmol/ L 5-15 normal Not Available [facility] [address], [place], [address] 02/15/2022 12:02:00 02/16/20 22 02/15/2022 COMPR EHENS PARMINDER METAB OLIC PANEL blood urea nitrogen 4 mg/dL 5-25 low Not Available [facility] [address], [place], [address] 02/15/2022 12:02:00 02/16/20 22 02/15/2022 COMPR EHENS PARMINDER METAB OLIC PANEL creatinine 0.9 mg/dL 0.5-1. 1 normal Not Available [facility] [address], [place], [address] 02/15/2022 12:02:00 02/16/20 22 02/15/2022 COMPR EHENS PARMINDER METAB OLIC PANEL estimated GFR ( nikhil 81 >=60 mL/min / Not Available [facility] [address], [place], [address] 02/15/2022 12:02:00 02/16/20 22 02/15/2022 COMPR EHENS PARMINDER METAB OLIC PANEL estimated GFR (non afr nikhil 69 >=60 mL/min / Not Available [facility] [address], [place], [address] 02/15/2022 12:02:00 02/16/20 22 02/15/2022 COMPR EHENS PARMINDER METAB OLIC PANEL BUN/creatini ne ratio 4.4 10.0-2 0.0 low Not Available [facility] [address], [place], [address] 02/15/2022 12:02:00 02/16/20 22 02/15/2022 COMPR EHENS PARMINDER METAB OLIC PANEL glucose 91 mg/dL <100 -fasti ng normal Not Available [facility] [address], [place], [address] 02/15/2022 12:02:00 05/19/02/15/2022 COMPR EHENS PARMINDER METAB OLIC PANEL calcium 9.0 mg/dL 8.6-10 .3 normal Not Available [facility] [address] [place] [address], [place], [address] 02/15/2022 12:02:00 02/16/20 22 02/15/2022 COMPR EHENS PARMINDER METAB OLIC PANEL bilirubin,to gab < 0.2 mg/dL <1.2 Not Available [facility] [address] [place] [address], [place], [address] 02/15/2022 12:02:00 02/16/20 22 02/15/2022 COMPR EHENS PARMINDER METAB OLIC PANEL aspartate amino transferase 17 U/L 15-41 normal Not Available [facility] [address] [place] [address], [place], [address] 02/15/2022 12:02:00 02/16/20 22 02/15/2022 COMPR EHENS PARMINDER METAB OLIC PANEL alanine aminotransfe rase 12 U/L 14-54 low Not Available [facility] [address] [place] [address], [place], [address] 02/15/2022 12:02:00 02/16/20 22 02/15/2022 COMPR EHENS PARMINDER METAB OLIC PANEL total protein 7.2 g/dL 6.4-8. 3 normal Not Available [facility] [address] [place] [address], [place], [address] 02/15/2022 12:02:00 02/16/20 22 02/15/2022 COMPR EHENS PARMINDER METAB OLIC PANEL albumin level 3.9 g/dL 4.0-5. 0 low Not Available [facility] [address] [facility] [address], [place], [address] 02/15/2022 12:02:00 02/16/20 22 02/15/2022 COMPR EHENS PARMINDER METAB OLIC PANEL albumin/glob ulin ratio 1.2 1.0-2. 6 normal Not Available [facility] [address] [facility] [address], [place], [address] 02/15/2022 12:02:00 02/16/20 22 02/15/2022 COMPR EHENS PARMINDER METAB OLIC PANEL alkaline phosphatase 202 U/L 35-104 high Not Available [facility] [address] [facility] [address], [place], [address] 02/15/2022 12:02:00 02/16/20 22 02/15/2022 C-DILIA CTIVE PROTE IN C-reactive protein 1.59 mg/dL <0.50 high Not Available [facility] [address] [facility] [address], [place], [address] 02/15/2022 12:02:01 02/20/20 22 02/19/2022 SURGI SOFY PATHO LOGY results Run: 02/22 1047 Speci men Inqui ry ----- ----- ----- ----- ----- ----- ----- ----- ----- ----- ----- ----- ----- ----- ----- ---- Name: ZEYAD MANCILLA PE NNY M Age/S ex: 61/F Locat ion: M7.EM Acct: [id number] Unit: [id number] Statu s: ADM IN Room/ Bed: EM772 [...] /6 Fro[place] [address] /3 34025 Level 4 - Gross and Micro scopi c/3 Kala d (sign ature on file) _ aEn andersen MD 02/22 1047 ----- ----- ----- ----- ----- ----- ----- ----- ----- ----- ----- ----- ----- ----- ----- ---- END OF REPOR T Not Available [facility] [address], [place], [address] 02/22/2022 10:48:07 03/07/20 22 03/07/2022 COMPL ETE BLOOD COUNT AUTO DIFF white blood count 10.2 X10_3 /uL 4.5-11 .0 normal Not Available [facility] [address], [place], [address] 03/07/2022 12:48:54 03/07/20 22 03/07/2022 COMPL ETE BLOOD COUNT AUTO DIFF red blood count 4.42 X10_6 /uL 3.70-5 .00 normal Not Available [facility] [address], [place], [address] 03/07/2022 12:48:54 03/07/20 22 03/07/2022 COMPL ETE BLOOD COUNT AUTO DIFF hemoglobin 12.0 g/dL 11.0-1 6.0 normal Not Available [facility] [address], [place], [address] 03/07/2022 12:48:54 03/07/20 22 03/07/2022 COMPL ETE BLOOD COUNT AUTO DIFF hematocrit 39.0 % 33.5-4 5.0 normal Not Available [facility] [address] [address], [place], [address] 03/07/2022 12:48:54 03/07/20 22 03/07/2022 COMPL ETE BLOOD COUNT AUTO DIFF mean corpuscular volume 88.2 fL 80.0-1 00.0 normal Not Available [address] [address], [place], [address] 03/07/2022 12:48:54 03/07/20 22 03/07/2022 COMPL ETE BLOOD COUNT AUTO DIFF mean corpuscular hemoglobin 27.1 pg 27.0-3 4.0 normal Not Available [address] [place] [address], [place], [address] 03/07/2022 12:48:54 03/07/20 22 03/07/2022 COMPL ETE BLOOD COUNT AUTO DIFF mean corpuscular HGB conc 30.8 g/dL 31.0-3 6.0 low Not Available [address] [address], [place], [address] 03/07/2022 12:48:54 03/07/20 22 03/07/2022 COMPL ETE BLOOD COUNT AUTO DIFF red cell distribution width 14.3 % 11.5-1 5.0 normal Not Available [address] [address], [place], [address] 03/07/2022 12:48:54 03/07/20 22 03/07/2022 COMPL ETE BLOOD COUNT AUTO DIFF platelet count 371 X10_3 /uL 150-40 0 normal Not Available [facility] [address] [address], [place], [address] 03/07/2022 12:48:54 03/07/20 22 03/07/2022 COMPL ETE BLOOD COUNT AUTO DIFF immature granulocytes % (auto) 0.2 % Not Available [address] [address], [place], [address] 03/07/2022 12:48:54 03/07/20 22 03/07/2022 COMPL ETE BLOOD COUNT AUTO DIFF neutrophils % (auto) 42.1 % Not Available [address] [address], [place], [address] 03/07/2022 12:48:54 03/07/20 22 03/07/2022 COMPL ETE BLOOD COUNT AUTO DIFF lymphocytes % (auto) 43.8 % Not Available [facility] [address] [address], [place], [address] 03/07/2022 12:48:54 03/07/20 22 03/07/2022 COMPL ETE BLOOD COUNT AUTO DIFF monocytes % (auto) 8.0 % Not Available [address] [address], [place], [address] 03/07/2022 12:48:54 03/07/20 22 03/07/2022 COMPL ETE BLOOD COUNT AUTO DIFF eosinophils % (auto) 5.0 % Not Available [address] [address], [place], [address] 03/07/2022 12:48:54 03/07/20 22 03/07/2022 COMPL ETE BLOOD COUNT AUTO DIFF basophils % (auto) 0.9 % Not Available [address] [address], [place], [address] 03/07/2022 12:48:54 03/07/20 22 03/07/2022 COMPL ETE BLOOD COUNT AUTO DIFF immature granulocytes # (auto) 0.02 X10_3 /uL 0.00-0 .09 normal Not Available [facility] [address] [address], [place], [address] 03/07/2022 12:48:54 03/07/20 22 03/07/2022 COMPL ETE BLOOD COUNT AUTO DIFF neutrophils # (auto) 4.3 X10_3 /uL 1.5-7. 8 normal Not Available [facility] [address] [address], [place], [address] 03/07/2022 12:48:54 03/07/20 22 03/07/2022 COMPL ETE BLOOD COUNT AUTO DIFF lymphocytes # (auto) 4.5 X10_3 /uL 1.0-4. 8 normal Not Available [facility] [address] [address], [place], [address] 03/07/2022 12:48:54 03/07/20 22 03/07/2022 COMPL ETE BLOOD COUNT AUTO DIFF monocytes # (auto) 0.8 X10_3 /uL 0.0-0. 8 normal Not Available [address] [address], [place], [address] 03/07/2022 12:48:54 03/07/20 22 03/07/2022 COMPL ETE BLOOD COUNT AUTO DIFF eosinophils # (auto) 0.5 X10_3 /uL 0.0-0. 5 normal Not Available [address] [address], [place], [address] 03/07/2022 12:48:54 03/07/20 22 03/07/2022 COMPL ETE BLOOD COUNT AUTO DIFF basophils # (auto) 0.1 X10_3 /uL 0.0-0. 2 normal Not Available [address] [address], [place], [address] 03/07/2022 12:48:54 03/07/20 22 03/07/2022 COMPL ETE BLOOD COUNT AUTO DIFF nucleated RBC% 0.0 /100_ WBC 0.0-0. 0 normal Not Available [address] [address], [place], [address] 03/07/2022 12:48:54 03/07/20 22 03/07/2022 ERYTH ROCYT E SEDIM ENTAT ION RATE erythrocyte sedimentatio n rate 71 mm/HR 0-30 high Not Available [address] [address], [place], [address] 03/07/2022 12:58:48 03/07/20 22 03/07/2022 COMPR EHENS PARMINDER METAB OLIC PANEL sodium 137 mmol/ L 137-14 6 normal Not Available [address] [address], [place], [address] 03/07/2022 13:26:12 03/07/20 22 03/07/2022 COMPR EHENS PARMINDER METAB OLIC PANEL potassium,K 4.0 mmol/ L 3.5-5. 3 normal Not Available [address] [address], [place], [address] 03/07/2022 13:26:12 03/07/20 22 03/07/2022 COMPR EHENS PARMINDER METAB OLIC PANEL chloride 100 mmol/ L 98-107 normal Not Available [address] [address], [place], [address] 03/07/2022 13:26:12 03/07/20 22 03/07/2022 COMPR EHENS PARMINDER METAB OLIC PANEL carbon dioxide 27 mmol/ L 23-32 normal Not Available [facility] [address] [facility] [address], [place], [address] 03/07/2022 13:26:12 03/07/20 22 03/07/2022 COMPR EHENS PARMINDER METAB OLIC PANEL anion gap 10 mmol/ L 5-15 normal Not Available [facility] [address] [facility] [address], [place], [address] 03/07/2022 13:26:12 03/07/20 22 03/07/2022 COMPR EHENS PARMINDER METAB OLIC PANEL blood urea nitrogen 6 mg/dL 5-25 normal Not Available [facility] [address] [facility] [address], [place], [address] 03/07/2022 13:26:12 03/07/20 22 03/07/2022 COMPR EHENS PARMINDER METAB OLIC PANEL creatinine 0.9 mg/dL 0.5-1. 1 normal Not Available [facility] [address] [facility] [address], [place], [address] 03/07/2022 13:26:12 03/07/20 22 03/07/2022 COMPR EHENS PARMINDER METAB OLIC PANEL estimated GFR ( nikhil 81 >=60 mL/min / Not Available [facility] [address] [facility] [address], [place], [address] 03/07/2022 13:26:12 03/07/20 22 03/07/2022 COMPR EHENS PARMINDER METAB OLIC PANEL estimated GFR (non afr nikhil 69 >=60 mL/min / Not Available [facility] [address] [facility] [address], [place], [address] 03/07/2022 13:26:12 03/07/20 22 03/07/2022 COMPR EHENS PARMINDER METAB OLIC PANEL BUN/creatini ne ratio 6.7 10.0-2 0.0 low Not Available [facility] [address] [facility] [address], [place], [address] 03/07/2022 13:26:12 03/07/20 22 03/07/2022 COMPR EHENS PARMINDER METAB OLIC PANEL glucose 95 mg/dL <100 -fasti ng normal Not Available [facility] [address] [facility] [address], [place], [address] 03/07/2022 13:26:12 03/07/20 22 03/07/2022 COMPR EHENS PARMINDER METAB OLIC PANEL calcium 9.2 mg/dL 8.6-10 .3 normal Not Available [facility] [address] [address], [place], [address] 03/07/2022 13:26:12 03/07/20 22 03/07/2022 COMPR EHENS PARMINDER METAB OLIC PANEL bilirubin,to gab < 0.2 mg/dL <1.2 Not Available [facility] [address] [address], [place], [address] 03/07/2022 13:26:12 03/07/20 22 03/07/2022 COMPR EHENS PARMINDER METAB OLIC PANEL aspartate amino transferase 16 U/L 15-41 normal Not Available [facility] [address] [address], [place], [address] 03/07/2022 13:26:12 03/07/20 22 03/07/2022 COMPR EHENS PARMINDER METAB OLIC PANEL alanine aminotransfe rase < 5 U/L 14-54 low Not Available [facility] [address] [address], [place], [address] 03/07/2022 13:26:12 03/07/20 22 03/07/2022 COMPR EHENS PARMINDER METAB OLIC PANEL total protein 7.3 g/dL 6.4-8. 3 normal Not Available [facility] [address] [address], [place], [address] 03/07/2022 13:26:12 03/07/20 22 03/07/2022 COMPR EHENS PARMINDER METAB OLIC PANEL albumin level 4.0 g/dL 4.0-5. 0 normal Not Available [facility] [address] [address], [place], [address] 03/07/2022 13:26:12 03/07/20 22 03/07/2022 COMPR EHENS PARMINDER METAB OLIC PANEL albumin/glob ulin ratio 1.2 1.0-2. 6 normal Not Available [facility] [address] [facility] [address], [place], [address] 03/07/2022 13:26:12 03/07/20 22 03/07/2022 COMPR EHENS PARMINDER METAB OLIC PANEL alkaline phosphatase 182 U/L 35-104 high Not Available [facility] [address] [facility] [address], [place], [address] 03/07/2022 13:26:12 03/07/20 22 03/07/2022 C-DILIA CTIVE PROTE IN C-reactive protein 1.55 mg/dL <0.50 high Not Available [facility] [address] [facility] [address], [place], [address] 03/07/2022 13:26:13 05/14/20 22 05/14/2022 TYPE AND PETER Lorenzo BBCarina report Run: 05/14 1319 Speci men Inqui ry ----- ----- ----- ----- ----- ----- ----- ----- ----- ----- ----- ----- ----- ----- ----- ---- Name: FIONA ROWLEY M Age/S ex: 61/F Locat ion: PAT.Dewayne Caceres Acct: [id number] Unit: [id number] Statu s: PRE REF Room/ Bed: Re05/14 Disch : Att Dr: Amber cadet MD ----- ----- ----- ----- ----- ----- ----- ----- ----- ----- ----- ----- ----- ----- ----- ---- Blood Type CELI WILLARD Ab Peter lorenzo (Gel) CELI WILLARD ----- ----- ----- ----- ----- ----- ----- ----- ----- ----- ----- ----- ----- ----- ----- ---- END OF REPOR T Not Available [facility] [address] [facility] [address], [place], [address] 05/14/2022 13:19:42 05/14/2005/14/2022 ANNE Goodman ABO/R H TYPE [facility] report Run: 05/14 1319 Speci men Inqui ry ----- ----- ----- ----- ----- ----- ----- ----- ----- ----- ----- ----- ----- ----- ----- ---- Name: ZEYAD FIONA MANCILLA Age/S ex: 61/F Locat ion: PAT.E M Acct: [id number] Unit: [id number] Statu s: PRE REF Room/ Bed: Re05/14 Disch : Att Dr: Amber cadet MD ----- ----- ----- ----- ----- ----- ----- ----- ----- ----- ----- ----- ----- ----- ----- ---- SATURNINO SHANEED TO BE DRAWN ON DOS ----- ----- ----- ----- ----- ----- ----- ----- ----- ----- ----- ----- ----- ----- ----- ---- END OF REPOR T Not Available [facility] [address] [facility] [address], [place], [address] 05/14/2022 13:19:43 05/14/20 22 05/14/2022 ERYTH ROCYT E SEDIM ENTAT ION RATE erythrocyte sedimentatio n rate 66 mm/HR 0-30 high Not Available [facility] [address] [facility] [address], [place], [address] 05/14/2022 13:29:45 05/14/20 22 05/14/2022 HEMOG LOBIN A1C hemoglobin A1C 5.8 4.3-5. 9 normal Not Available [facility] [address], [place], [address] 05/14/2022 13:32:47 05/14/20 22 05/14/2022 HEMOG LOBIN A1C estimated average glucose 120 mg/dL Not Available [facility] [address] [facility] [address], [place], [address] 05/14/2022 13:32:47 05/14/20 22 05/14/2022 TYPE AND SCREDewayne Lorenzo BBK report Run: 05/14 1400 Speci men Inqui ry ----- ----- ----- ----- ----- ----- ----- ----- ----- ----- ----- ----- ----- ----- ----- ---- Name: FIONA ROWLEYY M Age/S ex: 61/F Locat ion: PAT.E M Acct: [id number] Unit: [id number] Statu s: PRE REF Room/ Bed: Re05/14 [...] ---- END OF REPOR T Not Available [facility] [address], [place], [address] 05/14/2022 14:00:28 05/14/20 22 05/14/2022 C-DILIA CTIVE PROTE IN C-reactive protein 1.18 mg/dL <0.50 high Not Available [facility] [address] [facility] [address], [place], [address] 05/14/2022 14:03:29 05/14/20 22 05/14/2022 COMPR EHENS PARMINDER METAB OLIC PANEL sodium 141 mmol/ L 137-14 6 normal Not Available [facility] [address] [facility] [address], [place], [address] 05/14/2022 14:03:58 05/14/20 22 05/14/2022 COMPR EHENS PARMINDER METAB OLIC PANEL potassium,K 3.9 mmol/ L 3.5-5. 3 normal Not Available [facility] [address] [facility] [address], [place], [address] 05/14/2022 14:03:58 05/14/20 22 05/14/2022 COMPR EHENS PARMINDER METAB OLIC PANEL chloride 104 mmol/ L 98-107 normal Not Available [facility] [address] [facility] [address], [place], [address] 05/14/2022 14:03:58 05/14/20 22 05/14/2022 COMPR EHENS PARMINDER METAB OLIC PANEL carbon dioxide 29 mmol/ L 23-32 normal Not Available [facility] [address] [facility] [address], [place], [address] 05/14/2022 14:03:58 05/14/20 22 05/14/2022 COMPR EHENS PARMINDER METAB OLIC PANEL anion gap 8 mmol/ L 5-15 normal Not Available [facility] [address] [facility] [address], [place], [address] 05/14/2022 14:03:58 05/14/20 22 05/14/2022 COMPR EHENS PARMINDER METAB OLIC PANEL blood urea nitrogen 5 mg/dL 5-25 normal Not Available [facility] [address] [facility] [address], [place], [address] 05/14/2022 14:03:58 05/14/20 22 05/14/2022 COMPR EHENS PARMINDER METAB OLIC PANEL creatinine 0.9 mg/dL 0.5-1. 1 normal Not Available [facility] [address] [facility] [address], [place], [address] 05/14/2022 14:03:58 05/14/20 22 05/14/2022 COMPR EHENS PARMINDER METAB OLIC PANEL estimated GFR ( nikhil 81 >=60 mL/min / Not Available [facility] [address] [address], [place], [address] 05/14/2022 14:03:58 05/14/20 22 05/14/2022 COMPR EHENS PARMINDER METAB OLIC PANEL estimated GFR (non afr nikhil 69 >=60 mL/min / Not Available [facility] [address] [address], [place], [address] 05/14/2022 14:03:58 05/14/20 22 05/14/2022 COMPR EHENS PARMINDER METAB OLIC PANEL BUN/creatini ne ratio 5.6 10.0-2 0.0 low Not Available [facility] [address] [address], [place], [address] 05/14/2022 14:03:58 05/14/20 22 05/14/2022 COMPR EHENS PARMINDER METAB OLIC PANEL glucose 101 mg/dL <100 -fasti ng high Not Available [facility] [address] [address], [place], [address] 05/14/2022 14:03:58 05/14/20 22 05/14/2022 COMPR EHENS PARMINDER METAB OLIC PANEL calcium 9.4 mg/dL 8.6-10 .3 normal Not Available [facility] [address] [address], [place], [address] 05/14/2022 14:03:58 05/14/20 22 05/14/2022 COMPR EHENS PARMINDER METAB OLIC PANEL bilirubin,to gab < 0.2 mg/dL <1.2 Not Available [facility] [address] [address], [place], [address] 05/14/2022 14:03:58 05/14/20 22 05/14/2022 COMPR EHENS PARMINDER METAB OLIC PANEL aspartate amino transferase 23 U/L 15-41 normal Not Available [facility] [address] [address], [place], [address] 05/14/2022 14:03:58 05/14/20 22 05/14/2022 COMPR EHENS PARMINDER METAB OLIC PANEL alanine aminotransfe rase 13 U/L 14-54 low Not Available [facility] [address] [address], [place], [address] 05/14/2022 14:03:58 05/14/20 22 05/14/2022 COMPR EHENS PARMINDER METAB OLIC PANEL total protein 7.5 g/dL 6.4-8. 3 normal Not Available [facility] [address] [address], [place], [address] 05/14/2022 14:03:58 05/14/20 22 05/14/2022 COMPR EHENS PARMINDER METAB OLIC PANEL albumin level 4.2 g/dL 4.0-5. 0 normal Not Available [facility] [address] [address], [place], [address] 05/14/2022 14:03:58 05/14/20 22 05/14/2022 COMPR EHENS PARMINDER METAB OLIC PANEL albumin/glob ulin ratio 1.3 1.0-2. 6 normal Not Available [facility] [address] [address], [place], [address] 05/14/2022 14:03:58 05/14/20 22 05/14/2022 COMPR EHENS PARMINDER METAB OLIC PANEL alkaline phosphatase 162 U/L 35-104 high Not Available [facility] [address] [address], [place], [address] 05/14/2022 14:03:58 05/14/20 22 05/15/2022 MRSA/ MSSA PRE-O P (NARE S) MRSA/mssa pre-op (nares) No Methic illin Sensit parminder or Resist ant Staph aureus isolat ed. Not Available [facility] [address] [address], [place], [address] 05/15/2022 14:02:41 05/22/20 22 05/22/2022 SURGI SOFY PATHO LOGY results Run: 05/24 4625 Speci men Inqui ry ----- ----- ----- ----- ----- ----- ----- ----- ----- ----- ----- ----- ----- ----- ----- ---- Name: FIONA ROWLEY Age/S ex: 62/F Locat ion: PACU. EM Acct: [id number] Unit: [id number] Statu s: DIS IN Room/ Bed: PACU. [...] CPT Proce dures :Dec[place] n 81392 Hemat oxyli n + Eosin Stain /3 67759 Level 3 - Gross and Micro scopi c Kala d (sign ature on file) _ Josesito felder MD 05/24 1445 ----- ----- ----- ----- ----- ----- ----- ----- ----- ----- ----- ----- ----- ----- ----- ---- END OF REPOR T Not Available [facility] [address], [place], [address] 05/24/2022 14:45:34 02/17/20 22 02/16/2022 XR, hip, unila teral [facility] [address] [place], [place] [address] Patien t Name: NADIA MILLER Medica l Record #: [id number] Addres s: [address] [facility] t#: [id number] City/S [place]/Z ip: [place] [address]: Kate zayas PAC Phone: Insura nce: Medica re A&B /Ag e/Sex: 1959/6 0/F [facility] No PCC Admit/ Reg Date: Orderi sudheer Dr: Kate zayas, PAC Locati on: [facility] EM/ PCP: Pcp-No n StaffMd Date of Servic e: Order (s): XR hip LT min 2V CPT Code: 40086 Report Number : [id number] Reason for Exam: PAIN Pain [...] ed degene rative change s of the [place] right hip. Dictat ed By: Claribel jasso MD 1454 Signed By: Gene Lucas MD 1500 TD/TT: 1454 Tech: [id number] cc: LHELA; PCPNS* Kate Hatfield eux, PAC; Loreta Waldrop [facility] [address], [place], [address] 02/20/2022 15:35:03 02/17/20 22 02/15/2022 XR, hip, unila teral , 2 or 3 view No observ ation record ed. [facility] Atention: Jethro [address] [facility], [place], [address], 02/20/2022 15:35:04 02/20/20 22 02/19/2022 XR, hip, unila teral , 1 view [facility] Medica l [place] [facility] [address] [place] [address] [phone] Patien t Name: GISELLA BaigNADIAMaura Caceres Medica l Record #: [id number] Addres s: [address] [facility] Accoun t#: [id number] City/S mitchell/Z ip: [place] [address]: Elvia Martinez MD Phone: Insura nce: Medica re A&B /Ag e/Sex: 1959/6 0/F [facility] No PCC Admit/ Reg Date: Calii sudheer Johnson: Kate zayas, PAC Locati on: PACU.E M/PACU . PCP: Memo Nguyen Md Date of Servic e: Order (s): XR hip LT 1V CPT Code: 02868 Report Number : [id number] Reason for Exam: s/p L [...] zayas, PAC; Elvia Martinez MD; Loreta Waldrop [facility] [address] [facility] [address], [place], [address] 02/20/2022 15:35:04 02/20/20 22 02/19/2022 XR, hip, unila teral , 2 or 3 view No observ ation record ed. [facility] [address] [facility], [place], [address], 02/20/2022 15:35:05 03/09/20 22 03/09/2022 XR, hip + pelvi s, unila teral [facility] [address] [place] [address] Patien t Name: NADIA MILLER Medica l Record #: [id number] Addres s: [address] [facility] Accoun t#: [id number] City/[place]/Z ip: [place] [address]: Kate zayas PAC Phone: Insura nce: Medica re A&B /Ag e/Sex: 1959/ [birth year]/F [facility] No PCC Admit/ Reg Date: Orderi ng Dr: Kate zayas, PAC Locati on: [facility] EM/ PCP: Pcp-No maura StaffMd Date of Servic e: Order (s): XR hip pelvis LT min 2V CPT Code: 14494 Report Number : [id number] Reason for Exam: HIP PAIN [...] PCPNS* Kate zayas, PAC; Dequan vuLoreta ryanne [facility] [address], [place], [address] 03/13/2022 16:45:35 03/09/20 22 03/07/2022 XR, hip, unila teral , 2 or 3 view No observ ation record ed. [facility]: Jethro [address] [facility], [place], [address], 03/13/2022 16:45:35 05/15/2005/15/2022 CT, hip, w/o contr ast [facility] Medica l [facility] [address] [place] [address] [phone] Patien t Name: NADIA MILLER [place] Medica l Record #: [id number] Addres s: [address] [facility] Accoun t#: [id number] City/S mitchell/Z ip: [place] [address]: Rigo Kennedy PAC Phone: Insura nce: Medica re A&B /Ag e/Sex: 1959/ [birth year]/F [facility] No PCC Admit/ Reg Date: Orderi sudheer Dr: Rigo Kennedy, PAC Locati on: DI.CTE M/ PCP: Pcp-No n StaffMd Date of Servic e: Order (s): CT johanna hip RT wo contra st CPT Code: 49749 Report Number : [id number] Reason for Exam: OSTEOA RTHRIT [...] Norris i, MD 1704 TD/TT: 1658 Tech: [facility] 01 cc: GENTRY; PCPNS* PIERCE Guevara; Loreta Waldrop [facility] [address] [facility] [address], [place], [address] 05/16/2022 11:03:39 05/22/2005/22/2022 XR, hip, unila teral , 1 view [facility] Medica [facility] [address] [place] [address] Patien t Name: ZEYADKatrhik PRIYA BaigMaura Caceres Medica l Record #: [id number] Addres s: [address] [facility] Accoun t#: [id number] City/S mitchell/[place] ip: [place] [address]: Elvia Martinez MD Phone: Insura nce: Medica re A&B /Ag e/Sex: 1959/ 1/F [facility] No PCC Admit/ Reg Date: Waldo willard Dr: Kate zayas PAC Locati on: PACU.E M/PACU . PCP: PcpHugo Nguyen Md Date of Servic e: Order (s): XR hip RT 1V CPT Code: 90587 Report Number : [id number] Reason for Exam: s/p R [...] zayas PAC; Elvia Martinez MD; Loreta Waldrop [facility] [address] [address], [place], [address] 06/05/2022 16:33:25 05/22/20 22 05/22/2022 XR, hip, unila teral No observ ation record ed. [facility] [address] [place] [address], [address], 06/07/2022 13:05:01 05/23/20 22 05/14/2022 EKG elect tayla jamison [facility] Medica [address] [address] [phone] Patien t Name: GISELLA BaigNADIAMaura aCceres Medica l Record #: [id number] Addres s: [address] [facility] Accoun t#: [id number] City/S mitchell/Z ip: [place] [address]: Elvia Martinez MD Phone: Insura nce: Medica re A&B /Ag e/Sex: 1959/6 0/F [facility] No PCC Admit/ Reg Date: Orderi ng Dr: Elvia Martinez MD Locati on: PAT.EM / PCP: Pcp-No n Staff, Md Date of Servic e: Order (s): EKG Electr ocardi ogram CPT Code: 82714 Report Number : [id number] Reason for Exam: pre op Sinus rhythm , Regula r, HR 79 NORMAL AXIS AND INTERV ALS. 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 [address] [place], [place] [address] Patien t Name: NADIA MILLER Medica l Record #: [id number] Addres s: [address] [facility] Accoun t#: [id number] City/S mitchell/Z ip: [place] [address]: Kate zayas PAC Phone: Insura nce: Medica re A&B /Ag e/Sex: 1959/6 1/F [facility] No PCC Admit/ Reg Date: Orderi sudheer Dr: Kate zayas, PAC Locati on: [facility] EM/ PCP: PcpHugo Nguyen Md Date of Servic e: Order (s): XR hip pelvis BI min 3V CPT Code: 85081 Report Number : [id number] Reason for Exam: HIP PAIN [...] MARGUERITE; PCPNS* Kate zayas, PAC; Loreta Waldrop [facility] [address], [place], [address] 06/12/2022 14:34:30 06/08/20 22 06/06/2022 XR, hip, bilat eral No observ ation record ed. [facility] Atention: Jethro [address] [facility], [place], [address], 06/12/2022 14:34:55 Result Notes Documentation Provider Name and Address Organization Details Recorded Time Xr, Hip + Pelvis, Unilateral : [facility] [address] [place] [address] Patient Name: LAURA HICKMAN Medical Record#: [id number] Address: [address] [place] [address] City/State/Zip: [place] [address]: Kate Young PAC Insurance: Medicare A&B /Age/Sex: 1960/61/F [facility] No PCC Admit/Reg Date: 03/06/[address]: Kate Young, PAC Location: .CEM/ PCP: Pcp-Non StaffMd Date of Service: 03/07/22 Order (s): XR hip pelvis LT min 2V CPT Code: 64534 Report Number: [id number] Reason for Exam: HIP PAIN XR hip [...] MD 03/09/22 1029 TD/TT: 03/09/22 1021 Tech: [id number] cc: MARGUERITE; HELENA* Kate Young, PAC; Oracio Douglas, HELEN [address] [place] [address], [phone] 03/13/2022 16:45:35 Ct, Hip, W/o Contrast : [place] [address] Patient Name: LAURA HICKMAN Medical Record#: [id number] Address: [address] [place] [address] City/State/Zip: [place] [address]: Bindu Kennedy PAC Insurance: Medicare A&B /Age/Sex: 1960/61/F [facility] No PCC Admit/Reg Date: 05/14/[address]: Bindu Kennedy, PAC Location: DI.CTEM/ PCP: Pcp-Marie Nguyen Md Date of Service: 05/14/22 Order (s): CT johanna hip RT wo contrast CPT Code: 33932 Report Number: [id number] Reason for Exam: OSTEOARTHRITIS OF RIGHT HIP [...] Kauffman MD 05/15/22 1705 TD/TT: 05/15/221658 Tech: [id number] cc: GENTRY; CHECONS* Bindu Kennedy, PIERCE; Oracio Douglas PA [address] [place] [address], [phone] 05/16/2022 11:03:39 Xr, Hip, Unilateral, 1 View : [place] [id number] Patient Name: LAURA HICKMAN Medical Record#: [id number] Address: [address] [place] [address] City/State/Zip: [place] [address]: Geovany Martinez MD Insurance: Medicare A&B /Age/Sex: 1960/62/F [facility] No PCC Admit/Reg Date: 05/22/[address]: PIERCE Johnson Location: PACU.EM/PACU.EM-11 PCP: Mike Nguyen Md Date of Service: 05/22/22 Order (s): XR hip RT 1V CPT Code: 02922 Report Number: [id number] Reason for Exam: s/p R ANNETTE XR [...] PAC; Geovany Martinez MD; Oracio Douglas PA [address] [place] [address], [phone], [facility] 06/05/2022 16:33:25 Xr, Hip + Pelvis, Bilateral : [facility] at [address] [address] Patient Name: LAURA HICKMAN Medical Record#: [id number] Address: [address] [place] [address] City/State/Zip: [place] [address]: Kate Young PAC Insurance: Medicare A&B /Age/Sex: 1960/62/F [facility] No PCC Admit/Reg Date: 06/06/[address]: PIERCE Johnson Location: [facility]/ PCP: Mike StaffMd Date of Service: 06/06/22 Order (s): XR hip pelvis BI min 3V CPT Code: 21286 Report Number: [id number] Reason for Exam: HIP PAIN Pain Frontal [...] Joy MD 06/08/221655 TD/TT: 06/08/22 165 Tech: [id number] cc: MARGUERITE; HELENA* Kate Young, PAC; Oracio Douglas PA [address] [place], [address], [facility] 06/12/2022 14:34:30 Procedures Surgical History Date Name Laterality Status Provider Name and Address Organization Details Recorded Time 2 TELEHEALTH VISIT completed Sophie Weathers MD [address] [facility], [place], [address], [facility] 04/03/2022 14:11:05 2 TELEHEALTH VISIT completed Patricia Amaro [facility] 03/06/2022 08:58:21 Imaging Results None recorded. [...] ICD10 Code Diagnosis IMO Codes Diagnosis Note [id number] HELEN JOHNSON SEM_HOSP ORTHOPEDI CS OUT PT [address] [facility] [place] [address] 02/15/2022 10:09:12 02/22/2022 15:55:47 Dehiscence of surgical wound 20023389 T81.30XA Pleasant 61-year-ol d female presents regarding [...] of total replacement of left hip joint [id number] 188515 Z96.642 [id number] Sophie Weathers MD SEM[facility] [address] [facility] [address] [facility] [address] [place] [address] 03/06/2022 08:55:20 03/06/2022 22:22:07 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 [id number] 4906811 T84.52XD [id number] HELEN JOHNSON SEM_HOSP ORTHOPEDI CS OUT PT [address] [facility] [place] [address] 03/07/2022 11:29:08 03/12/2022 07:42:34 Dehiscence of surgical wound 70823909 T81.30XA 2 weeks status post left hip [...] of total replacement of left hip joint 7797628178 837601 Z96.642 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 6837889653 9123305 T84.52XD [id number] Sophie Weathers MD SEM[facility]CC[facility] [address] [facility] [address] [facility] [address] [place] [address] 04/03/2022 10:58:54 04/03/2022 15:59:51 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 Pain of ri ght hip joint 8458607411 78580 M25.551 History of left hip replacement 3122436456 460905 Z96.642 Doing well status post I and D and head liner exchange with wound revision given postoperat parminder wound dehiscence . Most recent lab work reassuring . No issues with her incision. She is off antibiotic s. No reported fevers or chills or increasing pain. [id number] HELEN JOHNSON SEM_HOSP ORTHOPEDI CS OUT PT [address] [place] [address] 06/06/2022 10:23:14 06/07/2022 11:06:46 History of total replacement of right hip joint 1398760057 22822 Z96.641 Two weeks status post right anterior [...] recovery. Will follow-up in 6 weeks via [employer]. Health Concerns Section Related Observation LastModified by Organization Detai ls LastModified Time None Recorded Concern Status LastModified by Organization Details LastModified Time None Recorded Advance Directives Directive None Recorded Payers Insurance Date Sequence Insurance Name Policy Number Policy Gutiérrez Covered Member ID Gutiérrez Member ID Guarantor Name 07/22/2022 1 [place] B-[place] [employer] Laura Hickman [id number] Laura Hickman 07/22/2022 2 [place] [facility] Laura Hickman [id number] Laura Hickman Notes Date Note Type Note Provider Name and Address Organization Details Recorded Time 2 text/html ROS as noted in the HPI The patient acknowledges that they can see [...] a left hip arthroplasty on 01/08/2022 in [place]. Since the surgery, she has been having [...] gauze with no drainage. Sophie Weathers MD [address] [place] [address], [phone], [facility] 03/06/2022 14:31:51 2 text/html ROS as noted in the HPI Date of Procedure: 02/19/22Pre-operative Diagnosis: Left anterior [...] postop exam with x-rays. HELEN JOHNSON [address] [place], [address], [facility] 03/07/2022 13:10:01 2 text/html The [...] rash, pruritus, diarrhea. Sophie Weathers MD [address] [place], [address], [facility] 04/03/2022 14:14:52 2 text/html This is a 61-year-old woman who is presenting today with right hip pain. She is known to Dr. Martinez status post left hip surgical wound I and D and head liner exchange for persistent drainage and wound dehiscence on 02/19/2022, original left total hip surgery on 01/08/22 in [place]. She reports that her left hip is [...] in right hip replacement surgery. HELEN ZHU [address] [place] [address], [phone], [facility] 05/09/2022 16:41:47 2 text/html Date [...] today for postop exam. HELEN JOHNSON [address] [place], [address], [facility] 06/06/2022 15:14:48 OBGyn Episode No OBEpisode recorded.
--- OUTSIDE RECORDS SUMMARY | 2025-07-23 22:07 | XMS_ITS | Clinical Summary ---
Author Organization [facility] [address] [place] [address] Address [address], [place] Phone Care Team Providers Care Manager Molecular Name Role Phone Hosea Douglas Primary Care Provider [phone] Allergies Active Allergy Reactions Criticality Noted Date [...] 30 each 11 12/16/19 25 2025 Active apixaban (Eliquis) 5 mg tablet TAKE [...] TABLET BY MOUTH ONCE DAILY 90 tablet 03/10/20 25 Active docusate sodium (COLACE) 100 [...] at the same time. 30 each 3 06/30/20 25 Active celecoxib (CeleBREX) 200 mg capsule TAKE 1 CAPSULE BY MOUTH ONCE DAILY 30 capsule 5 10/21/20 25 Active UNABLE TO FIND Take 1 [...] 5 % patchIndication s:Atrial flutter, unspecified type ([facility] V24, [facility] V28),Uncomplica koko asthma, unspecified asthma severity, unspecified whether persistent,Esse ntial hypertension,Ch ronic obstructive pulmonary disease with acute exacerbation ([facility] V24, [facility] V28) Apply 1 patch topically 1 (one) [...] 16 g 5 12/16/19 25 2024 Discontinued celecoxib (CeleBREX) 200 mg capsule TAKE 1 CAPSULE BY MOUTH ONCE DAILY 30 capsule 5 12/19/19 25 2024 Discontinued buprenorphine (BUTRANS) 20 mcg/hour [...] Pain due to left hip joint prosthesis ([facility] V 24) 02/07/2023 Primary osteoarthritis [...] with Ansley Lobo PVD (peripheral vascular disease) ([facility] V24) 02/24/2013 COPD (chronic obstructive pu lmonary disease) ([facility] V24, [facility] V28) 10/28/2012 Insomnia 10/28/2012 Abdominal pain 07/24/2012 Knee pain 01/30/2010 Patella, chondromalacia 01/30/2010 Low back pain 01/13/2010 Radiculitis, lumbosacral 01/13/2010 Lumbar spondylosis 01/07/2010 Migraine 12/12/2007 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): Had open heart surgery Encounters Date Type Department Care Team Description 07/13/2025 Telephone Adult Medicine [address] [phone] Erasmo Jackson LPN 07/01/2025 Results Follow-Up Adult Medicine [address] [phone] Jayme Kenyon MD 06/30/2025 10:00 AM EDT Consult Adult Medicine [address] [phone] Jayme Kenyon MD Preop examination (Primary Dx); Paroxysmal atrial fibrillation (CMS/HCC V24, CMS/HCC V28); Chronic obstructive pulmonary disease with acute exacerbation (CMS/HCC V24, CMS/HCC V28); Screening for diabetes mellitus (DM); Tobacco dependency 06/22/2025 Telephone Adult Medicine [facility] [address] [place] [phone] Hosea Douglas PA 06/12/2025 Telephone Adult Medicine [facility] [address] [place] [phone] Hosea Douglas PA 06/03/2025 1:30 PM EDT Office Visit Orthopedic Surgery [address] [phone] Kamra Smith DPM PVD (peripheral vascular disease) ([facility] V24) (Primary Dx); Pain in toes of both feet; Arthritis of both feet; Dermatophytosis, nail from Last 3 Months Immunizations Immunization Administration [...] PROCEDURE: HISTORICAL TONSILLECTOMY OTHER SURGICAL HISTORY PROCEDURE: OH LIG/TRNSXJ FLP TUBE ABDL/VAG APPR UNI/BI OTHER SURGICAL HISTORY 08/2014 PROCEDURE: OH UNLISTED PROCEDURE SPINE; COMMENT: L4- L5 lumbar fusion COLONOSCOPY 04/17/2016 PROCEDURE: HISTORICAL COLONOSCOPY; COMMENT: 10 mm sigmoid colon polyp: Tubulovillous adenoma. OTHER SURGICAL HISTORY 03/2018 PROCEDURE: OH RMVL TOT DISC ARTHRP ANT 1 INTERSPACE CERVICAL; COMMENT: cer disckectomy C5- C7 OTHER SURGICAL HISTORY 01/08/2022 PROCEDURE: OH ANESTHESIA OPEN TOTAL HIP ARTHROPLASTY; COMMENT: dr. angel, done in [place] OTHER SURGICAL HISTORY 05/22/2022 Right PROCEDURE: OH ANESTHESIA OPEN TOTAL HIP ARTHROPLASTY; COMMENT: [facility] [...] s COPD (chronic obstructive pu lmonary disease) ([facility] V24, [facility] V28) 10/28/2012 DX:COPD (chronic o bstructive pulmonary disease) ([facility]) Insomnia 10/28/2012 DX:Insomnia PVD (peripheral vascular dis ease) ([facility] V24) 02/24/2013 DX:PVD (peripheral vascular disease) (HCC) Major depression 02/24/2013 DX:Major depres jon Borderline abnormal TFTs 02/24/2013 DX:Bord jaime abnormal TFTs Need for hepatitis C screening test 02/24/2013 DX:Need for hepatitis C screening test Historical Medical DX 01/07/2010 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 For example, children's service worker or elderly care for an older [...] PM EST Office Visit Orthopedic Surgery - [place] [address] [place] [phone] Kamar Smith, DPMorris [address] [place] [address] Health Maintenance Due Date Last Done Comments [...] Procedure Name Priority Date/Time Associated Diagnosis Comments EXTERNAL XRAY REPORT 07/20/2025 EXTERNAL XRAY REPORT 07/20/2025 EXTERNAL XRAY REPORT 07/20/2025 EXTERNAL XRAY REPORT 07/20/2025 ECG 12-LEAD Routine 07/01/2025 8:01 AM EDT [...] (CMS/HCC V24, CMS/HCC V28) HEMOGLOBIN A1C Routine 06/30/2025 12:55 PM [...] Recently Relevant to Health Maintenance Results * External Xray Report (07/20/2025) Only the most recent of4 resultswithin the time period is included. Anatomical Region Laterality Modality Radiographic Chiara ging us Provider [facility] IMG XR PROCEDURES Final Result * ECG 12 lead (07/01/2025 8:01 AM EDT) Only the most recent of2 resultswithin the time period is included. us Historical Provider ECG ORDERABLES Final Res ult * (ABNORMAL) CBC auto differential (06/30/2025 12:55 PM EDT) [facility] WBC 8.9 4.8 - 10.8 K/mcL LAB HEMETOLOG[facility] RBC 4.90(H) 3.80 - 4.80 M/mcL LAB HEMETOLOGY METHOD 06/30/2025 2:09 [facility] Hemoglobin 14.1 11.5 - 16.0 g/dL LAB HEMETOLOGY METHOD 06/30/2025 2:09 [facility] Hematocrit 43.2 35.0 - 47.0 % LAB HEMETOLOGY METHOD 06/30/2025 2:09 [facility] MCV 89.1 79.0 - 98.0 FL LAB HEMETOLOGY METHOD 06/30/2025 2:09 [facility] MCH 29.1 27.0 - 32.0 pcg LAB HEMETOLOGY METHOD 06/30/2025 2:09 PM [facility] MCHC 32.6 32.0 - 37.0 g/dL LAB HEMETOLOGY METHOD 06/30/2025 2:09 PM [facility] RDW 14.1 11.0 - 15.0 % LAB HEMETOLOGY METHOD 06/30/2025 2:09 PM [facility] Platelets 280 130 - 400 K/mcL LAB HEMETOLOGY METHOD 06/30/2025 2:09 PM [facility] MPV 10.6 7.0 - 11.0 FL LAB HEMETOLOGY METHOD 06/30/2025 2:09 [facility] NRBC 0.0 <1.0 % LAB HEMETOLOGY METHOD 06/30/2025 2:09 PM [facility] NRBC Absolute 0.00 <0.10 K/mcL LAB HEMETOLOGY METHOD 06/30/2025 2:09 PM [facility] Neutrophils Relative 52.2 % LAB HEMETOLOGY METHOD 06/30/2025 2:09 PM [facility] Lymphocytes Relative 35.8 % LAB HEMETOLOGY METHOD 06/30/2025 2:09 PM [facility] Monocytes Relative 9.7 % LAB HEMETOLOGY METHOD 06/30/2025 2:09 PM [facility] Eosinophils Relative 1.3 % LAB HEMETOLOGY METHOD 06/30/2025 2:09 PM [facility] Basophils Relative 0.8 % LAB HEMETOLOGY METHOD 06/30/2025 2:09 PM [facility] Immature Granulocytes Relative 0.2 % LAB HEMETOLOGY METHOD 06/30/2025 2:09 PM [facility] Neutrophils Absolute 4.64 1.50 - 7.00 K/mcL LAB HEMETOLOGY METHOD 06/30/2025 2:09 PM [facility] Lymphocytes Absolute 3.19 1.00 - 5.00 K/mcL LAB HEMETOLOGY METHOD 06/30/2025 2:09 PM [facility] Monocytes Absolute 0.86 0.20 - 1.00 K/mcL LAB HEMETOLOGY METHOD 06/30/2025 2:09 PM [facility] Eosinophils Absolute 0.12 0.00 - 0.50 K/mcL LAB HEMETOLOGY METHOD 06/30/2025 2:09 PM [facility] Basophils Absolute 0.07 0.00 - 0.20 K/mcL LAB HEMETOLOGY METHOD 06/30/2025 2:09 PM [facility] Immature Granulocytes Absolute 0.02 0.00 - 0.03 K/mcL LAB HEMETOLOGY METHOD 06/30/2025 2:09 PM [facility] Blood Venous blood specimen / Unknown Venipuncture / Unknown 06/30/2025 12:55 PM EDT 06/30/2025 12:55 PM EDT us Jayme Kenyon MD LAB BLOOD ORDERABLES F inal Result Performing Organization Address [facility]/ZIP Co de Phone Number [facility] [address] [place] [address], [place] [phone] * Hemoglobin A1c (06/30/2025 12:55 PM EDT) [facility] Hemoglobin A1C 5.3 <6.5 % LAB CHEMISTRY METHOD 06/30/2025 10:08 PM EDT [facility] Mean Bld Glu Estim. 105 mg/dL LAB CHEMISTRY METHOD 06/30/2025 10:08 PM EDT [facility] Blood Venous blood specimen / Unknown Venipuncture / Unknown 06/30/2025 12:55 PM EDT 06/30/2025 12:55 PM EDT us Jayme Kenyon MD LAB BLOOD ORDERABLES F inal Result Performing Organization Address City/[facility]/ZIP Co de Phone Number [facility] [address] [place] [address], [place] [phone] * Comprehensive metabolic panel (06/30/2025 12:55 PM EDT) [facility] Sodium 137 133 - 145 mmol/L LAB CHEMISTRY METHOD 06/30/2025 5:45 PM EDT [facility] Potassium 4.2 3.5 - 5.5 mmol/L LAB CHEMISTRY METHOD 06/30/2025 5:45 PM EDT [facility] Chloride 105 96 - 110 mmol/L LAB CHEMISTRY METHOD 06/30/2025 5:45 PM EDT [facility] CO2 28 21 - 32 mmol/L LAB CHEMISTRY METHOD 06/30/2025 5:45 PM [facility] Anion Gap 4 3 - 11 LAB CHEMISTRY METHOD 06/30/2025 5:45 PM [facility] Glucose 79 70 - 100 mg/dL LAB CHEMISTRY METHOD 06/30/2025 5:45 PM [facility] BUN 10 5 - 25 mg/dL LAB CHEMISTRY METHOD 06/30/2025 5:45 PM [facility] Creatinine 1.00 0.50 - 1.10 mg/dL LAB CHEMISTRY METHOD 06/30/2025 5:45 PM [facility] eGFR 63 >=60 mL/min/1. 73m2 LAB CHEMISTRY METHOD 06/30/2025 5:45 PM [facility] Comment:Calculation based on the Chronic Kidney Disease Epidemiology Collaboration (CKD-EPI) equation refit without adjustment for race. BUN/Creatinine Ratio 10.0 LAB CHEMISTRY METHOD 06/30/2025 5:45 PM [facility] Calcium 9.2 8.5 - 10.5 mg/dL LAB CHEMISTRY METHOD 06/30/2025 5:45 PM [facility] AST (SGOT) 31 10 - 42 unit/L LAB CHEMISTRY METHOD 06/30/2025 5:45 PM [facility] ALT (SGPT) 41 10 - 60 unit/L LAB CHEMISTRY METHOD 06/30/2025 5:45 PM [facility] Alkaline Phosphatase 121 42 - 121 unit/L LAB CHEMISTRY METHOD 06/30/2025 5:45 PM [facility] Total Protein 7.0 6.0 - 8.0 g/dL LAB CHEMISTRY METHOD 06/30/2025 5:45 PM [facility] Albumin 3.8 3.2 - 5.0 g/dL LAB CHEMISTRY METHOD 06/30/2025 5:45 PM [facility] Total Bilirubin 0.4 0.0 - 1.4 mg/dL LAB CHEMISTRY METHOD 06/30/2025 5:45 PM EDT [facility] Blood Venous blood specimen / Unknown Venipuncture / Unknown 06/30/2025 12:55 PM EDT 06/30/2025 12:55 PM EDT us Jayme Kenyon MD LAB BLOOD ORDERABLES F inal Result [facility] ([facility]) [facility] [address] [place] [address], [place] [phone] * CT Lung Screening (02/18/2025 1:43 PM [...] Signed Date: 02/19/2025 05:47 ET Workstation ID: [id number] Transcribed By: Self Edit Transcribed Date: 02/19/2025 [...] Signed Date: 02/19/2025 05:47 ET Workstation ID: [id number] Transcribed By: Self Edit Transcribed Date: 02/19/2025 05:41 ET Carol Leos MD IMG CT PROCEDURES Final Result * Lipid panel with reflex to direct LDL (12/15/2024 1:59 PM EDT) Cholesterol 177 0 - 200 mg/dL LAB CHEMISTRY METHOD 12/15/2024 5:06 PM EDT [facility] Triglycerides 130 0 - 150 mg/dL LAB CHEMISTRY METHOD 12/15/2024 5:06 PM EDT [facility] HDL 56 >=40 mg/dL LAB CHEMISTRY METHOD 12/15/2024 5:06 PM EDT [facility] LDL Calculated 95 0 - 100 mg/dL LAB CHEMISTRY METHOD 12/15/2024 5:06 PM EDT [facility] VLDL Cholesterol Luigi 26 mg/dL LAB CHEMISTRY METHOD 12/15/2024 5:06 PM EDT [facility] Non HDL Chol. (LDL+VLDL) 121 <145 mg/dL LAB CHEMISTRY METHOD 12/15/2024 5:06 PM EDT [facility] Chol/HDL Ratio 3.2 0.0 - 4.4 LAB CHEMISTRY METHOD 12/15/2024 5:06 PM EDT [facility] Blood Venous blood specimen / Unknown Venipuncture / Unknown 12/15/2024 1:59 PM EDT 12/15/2024 1:59 PM EDT Hosea CERVANTES LAB BLOOD ORDERABLES Tanisha l Result [facility] [address] [place] [address], [place] [phone] * Depression Screening (11/25/2023) Depression Screening abstracted [...] esult * Cervical Cancer Screening: HPV (07/05/2022) [facility] Cervical Cancer Screening: HPV abstracted, negative Result [facility] Provider HEALTH MAINTENANCE Final Result * Colonoscopy (02/03/2021) [facility] Colonoscopy abstracted, no interpretation Anatomical Region Laterality Modality Other Historical Provider HEALTH MAINTENANCE Final Result * Hepatitis C Screening (06/05/2013) [facility] Hepatitis C Screening abstracted Result [facility] Historical Provider HEALTH MAINTENANCE Final Result from Last 3 Months or Most Recently Relevant to Health Maintenance Insurance MEDIC[place] Care Teams Manager Molecular Relationship Specialty Start Date End Date Hosea Douglas PA [address] [place] [address] PCP - General Internal Medicine 02/01/21
[2025-07-23 22:16] LABS: Alanine Aminotransferase 55 U/L (0-31); Albumin Level 3.9 g/dL (3.5-5.0); Alkaline Phosphatase 171 U/L (39-117); Anion Gap 12 (12-20); Aspartate Amino Transferase 67 U/L (5-31); Blood Urea Nitrogen 9 mg/dL (9-16); Calcium 9.2 mg/dL (8.4-10.2); Carbon Dioxide 28 mmol/L (22-29); Chloride 103 mmol/L (96-108); Creatinine Clr Calc Pharmacy 63.8; Estimated Glomerular Filt Rate > 60; Potassium 3.7 mmol/L (3.3-5.1); Sodium 139 mmol/L (135-145); Total Protein 6.9 g/dL (6.5-8.0)
[2025-07-23 22:25] VITALS: TEMP 37.8
[2025-07-23 23:25] VITALS: BP 131/63; PULSE 91; RESP 16; TEMP 36.9; O2SAT 94
[2025-07-23] MEDS: Sulfamethox/Trimeth 800/160 TABLET 1 TAB PO (23:30)
[2025-07-24] VITALS (10 sets, daily range): BP systolic 110–138; BP diastolic 57–72; PULSE 70–84; RESP 12–19; TEMP 36.7–37.7; O2SAT 87–98
--- NOTE | 2025-07-24 01:34 | PC.NURSE ---
pt reporting increased pain to RLE - requesting medication. prn medication utilized. effectiveness pending.
--- NOTE | 2025-07-24 03:48 | PC.NURSE ---
pt noted to desat to 87% on RA while asleep. pt woke up - O2 improved to 91% on RA. no apparent respiratory distress noted. no wob noted. pt denies any sob. pt placed on 2L via NC for supplemental O2 while she sleeps. all other vss and up to date. 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 plan of care ongoing. call krueger placed within reach.
[2025-07-24] MEDS: Sulfamethox/Trimeth 800/160 TABLET 1 TAB PO (09:05)
[2025-07-24] MEDS: Ferrous Sulfate 324 MG TABLET.DR PO (09:05)
[2025-07-24] MEDS: buPROPion HCl XL 300 MG TAB.ER.24H PO (09:05)
--- NOTE | 2025-07-24 09:57 | P.CONOP_ITS ---
History of Present Illness HPI Consult date: 07/24/25 Chief complaint: R knee pain, knee replacement done Saturday Narrative: Ms. Hickman is a 65 yo female who is s/p RTKA with Dr. Calero on 07/19/25. She reported to the ED overnight for increased pain and brusing to the RLE. Of note, the patient is on Eliquis at baseline for A. Flutter. An u/s was obtained in the ED and negative for DVT. Patient is afebrile. No leukocytosis. Review of Systems 2 Review of Systems: Yes all other systems are reviewed and are negative [facility] Past Medical History Medical History Depression Asthma Migraines PVD (peripheral vascular disease) Elevated cholesterol COPD (chronic obstructive pulmonary disease) HTN (hypertension) Arthritis GERD (gastroesophageal reflux disease) Paroxysmal atrial flutter Status post placement of implantable loop recorder WPW (Bgitg-Blkychzny-Mgrbq syndrome) Family History Family History Father HTN (hypertension) Mother HTN (hypertension) Surgical History Surgical History Status post total left knee replacement (~03/15/25) History of hip surgery Hx of cholecystectomy History of cardiac radiofrequency ablation H/O colonoscopy History of hip surgery History of hip surgery History of back surgery Hx of neck surgery Social History Social History Housing Other:: mobile home Are you a primary critical care unit nurse to a significant other at home: No Do you presently have visiting nurse or other home services: Yes (LATENT FINGERPRINT EXAMINER) Patient Tobacco Use Status: Current everyday Tobacco user Tobacco use type: Cigarette Cigarettes Per Day: 5 Years Smoked: 50 Smoked in Last 30 Days: No Advance Directives: Yes Advance Directives on File: Yes Advance Directives Date on File: 03/17/25 Do you have a plan to hurt others: No Plan service: No Current occupational status: disabled Current occupation: Right hand dominate Meds Allergies Allergy/AdvReac Type Severity Reaction Status Date / Time pravastatin Allergy Mild rash Verified 07/23/25 21:42 Active Medications: Current Medications Acetaminophen (Acetaminophen 325 Mg Tablet) 650 mg PO Q6H PRN PRN Reason: Pain, Mild 1-3,fever,headache Apixaban (Apixaban 5 Mg Tablet) 5 mg PO BID [facility] Last Admin: 07/24/25 09:06 Dose: 5 mg Atorvastatin Calcium (Atorvastatin Calcium 40 Mg Tablet) 40 mg PO BEDTIME [facility] Last Admin: 07/24/25 02:42 Dose: 40 mg Bupropion HCl (Bupropion Hcl Xl 300 Mg Tab.Er.24h) 300 mg PO DAILY [facility] Last Admin: 07/24/25 09:05 Dose: 300 mg Celecoxib (Celecoxib 200 Mg Capsule) 200 mg PO BID [facility] Last Admin: 07/24/25 09:06 Dose: 200 mg Clonazepam (Clonazepam 0.5 Mg Tablet) 0.5 mg PO DAILY [facility] Last Admin: 07/24/25 09:05 Dose: 0.5 mg Docusate Sodium (Docusate Sodium 100 Mg Capsule) 100 mg PO BID [facility] Last Admin: 07/24/25 09:05 Dose: 100 mg Ferrous Sulfate (Ferrous Sulfate 324 Mg Tablet.) 324 mg PO DAILY [facility] Last Admin: 07/24/25 09:05 Dose: 324 mg Hydromorphone HCl (Hydromorphone Hcl 2 Mg Tablet) 2 mg PO QID PRN PRN Reason: Pain, Moderate(Pain Scale 4-6) Stop: 07/25/25 22:44 Last Admin: 07/24/25 01:25 Dose: 2 mg Lamotrigine (Lamotrigine 100 Mg Tablet) 300 mg PO BEDTIME [facility] Last Admin: 07/24/25 02:42 Dose: 300 mg Melatonin (Melatonin 3 Mg Tablet) 3 mg PO BEDTIME [facility] Last Admin: 07/24/25 02:42 Dose: 3 mg Methocarbamol (Methocarbamol 500 Mg Tablet) 500 mg PO TID [facility] Last Admin: 07/24/25 09:06 Dose: 500 mg Nicotine Polacrilex (Nicotine Polacrilex 2 Mg Gum) 2 mg BUCCAL Q2H PRN PRN Reason: Nicotine Cravings Omeprazole (Omeprazole 20 Mg Capsule.) 20 mg PO DAILY@0630 [facility] Last Admin: 07/24/25 06:20 Dose: 20 mg Oxycodone HCl (Oxycodone Hcl Immed Release 5 Mg Tablet) 10 mg PO Q4H PRN PRN Reason: Pain, Moderate(Pain Scale 4-6) Trazodone HCl (Trazodone Hcl 100 Mg Tablet) 200 mg PO BEDTIME [facility] Last Admin: 07/24/25 02:43 Dose: 200 mg Trimethoprim/Sulfamethoxazole (Sulfamethox/Trimeth 800/160 Tablet) 1 tab PO BID [facility] Stop: 07/26/25 08:59 Last Admin: 07/24/25 09:05 Dose: 1 tab Zolpidem Tartrate (Zolpidem Tartrate 5 Mg Tablet) 10 mg PO BEDTIME [facility] Last Admin: 07/24/25 02:42 Dose: 10 mg Home Medications ?Medication ?Instructions ?Recorded ?Confirmed ?Last Taken ?Type acyclovir 400 mg tablet 400 mg PO MOFR PRN Outbreak 09/06/21 07/23/25 07/22/25 History apixaban 5 mg tablet (Eliquis) 5 mg PO BID 09/06/2107/22/25 History bupropion HCl 300 mg 24 hr tablet, 300 mg PO DAILY 05/2007/23/25 07/22/25 History extended release omeprazole 20 mg tablet,delayed 20 mg PO DAILY@0630 07/23/25 07/22/25 History release trazodone 100 mg tablet 200 mg PO BEDTIME Insomnia 1 11/07/20 07/23/25 07/22/25 History zolpidem 10 mg tablet 10 mg PO BEDTIME Insomnia 07/23/25 07/22/25 History albuterol sulfate 90 mcg/actuation 90 mcg inhalation Q 4H PRN 01/17/23 07/23/25 07/22/25 History aerosol inhaler (Ventolin HFA) Shortness Of Breath Or Wheezing melatonin 3 mg tablet 3 mg PO BEDTIME 06/04/2407/22/25 History rosuvastatin 10 mg tablet 10 mg PO BEDTIME 06/04/2407/22/25 History tizanidine 4 mg tablet 4 - 8 mg PO BEDTIME PRN Pain 06/04/24 07/23/25 07/22/25 History clonazepam 0.5 mg tablet 0.5 mg PO DAILY 09/14/2407/22/25 History lamotrigine 150 mg tablet 300 mg PO BEDTIME 09/21/24 1 07/22/25 History albuterol sulfate 2.5 mg/3 mL 2.5 mg inhalation Q4H ME N 02/15/25 07/23/25 07/22/25 History (0.083 %) solution for nebulization Shortness Of Breat h Or Wheezing ferrous sulfate 325 mg (65 mg 325 mg PO DAILY 03/15/25 07/23/25 07/22/25 History iron) tablet (FeroSul) [id number] acid 0.4 1 tab PO BEDTIME 03/15/25 07/23/25 07/22/25 History mg-lycopene 300 mcg-lutein 250 mcg tablet (CertaVite Senior) Physical Exam 2 Vital Signs: Vital Signs: Last Vital Signs Temp 98.0 F 07/24/25 09:46 Pulse 71 07/24/25 09:46 Resp 14 07/24/25 09:46 BP 114/72 07/24/25 09:46 Pulse Ox 98 07/24/25 09:46 O2 Del Method Room Air 07/24/25 09:46 O2 Flow Rate 2 07/24/25 06:06 BMI result Body Mass Index 31.9 Const: General: cooperative, healthy appearing and no acute distress Resp: Effort & Inspection: normal respiratory effort and able to speak in complete sentences Extrem: Other: Right knee ecchymotic. Aquacel dressing inctact with bloody/serosang fluid. Able to flex and extend with pain. Able to dorsi/plantar flex. Calf is supple and nontender. NVI. Psych: Appearance: grossly normal Mental Status: mental status grossly normal Attitude: cooperative Results Labs 07/23/25 21:48 07/23/25 21:48 Labs: Abnormal lab results 07/23/25 07/23/25 Range/Units 21:48 22:06 RBC 3.90 L (4.20-5.50) X10*6/uL Hgb 11.5 L (12.0-16.0) g/dl Hct 34.5 L (37.0-47.0) % [place] % (Auto) 11.2 H (2-11) % ESR 77 H (0-20) MM/HR AST 67 H (5-31) U/L ALT 55 H (0-31) U/L Alkaline Phosphatase 171 H (39-117) U/L C-Reactive Protein 11.14 H (< or = 0.50) mg/dL H & H 07/23/25 Range/Units 21:48 Hgb 11.5 L (12.0-16.0) g/dl Hct 34.5 L (37.0-47.0) % All other labs normal. Assessment and Plan (1) Status post total right knee replacement: Status: Acute (2) Hematoma of right knee region: Status: Acute Plan Aquacel dressing changed in the ED by ortho Incision site is c/d/i A new aquacel was placed Continue Eliquis Encourage gentle ROM F/u out patient with orthopedics at her normally scheduled appt. Procedures Date of Service Date of Service: 07/24/25
== END 2025-07-24 12:19 | disposition home or self-care (01) ==
PROVIDERS: Emergency Medicine; Emergency Provider Emergency Medicine Emergency Medical Services; PCP Physician Assistant Medical
DX: M96.840 Postprocedural hematoma of a musculoskeletal structure following a musculoskeletal system procedure (principal)
CPT/HCPCS: 36415; 73560; 80053; 83605; 85025; 85652; 86140; 87040; 99285; J1171

== ENCOUNTER → 2025-07-23 21:52 | Outpatient (BNV) | payer MEDICARE, MEDICAID, SELFPAY | PROVIDERS: Emergency Provider Emergency Medicine Emergency Medical Services; PCP Physician Assistant Medical; Visit Provider Physician Assistant | DX: Z47.1 Aftercare following joint replacement surgery (principal); Z96.651 Presence of right artificial knee joint; S80.01XA Contusion of right knee, initial encounter | CPT/HCPCS: 99024 ==

== ENCOUNTER → 2025-07-23 21:58 | Outpatient (BNV) | payer MEDICARE, MEDICAID, SELFPAY | PROVIDERS: Emergency Provider Emergency Medicine; PCP Physician Assistant Medical; Visit Provider Radiology Diagnostic Radiology | DX: M25.461 Effusion, right knee (principal) | CPT/HCPCS: 73560 ==

== ENCOUNTER 2025-07-26 13:11 | Outpatient (AMB) | payer MEDICARE, MEDICAID, SELFPAY ==
--- NOTE | 2025-07-26 13:27 | MHC.OFFVIS ---
Vital Signs 07/26/25 13:31 Height 5 ft 3 in Weight 180 lb BMI 31.9 Intake Visit Reasons: Bandage change- R TKA w/DR 07/19/25 Intake Note: Laura is a 65 year old female who presents with complaints of mild to moderate discomfort in her right knee after undergoing right total knee replacement surgery on 07/19/2025. The patient states that she noted some bloody drainage on her right knee dressing. She denies any fevers or chills. She continues with her physical therapy exercises. She does take oxycodone which gives her good relief. Allergies pravastatin Allergy (Mild, Verified 07/23/25 21:42) rash Medication List - Last Reconciled 07/26/25 by Richie Calero MD acetaminophen 650 mg (2 x 325 mg) PO Q6H PRN 30 days acyclovir 400 mg PO MOFR PRN albuterol sulfate 2.5 mg inhalation Q4H PRN albuterol sulfate 90 mcg/actuation (Ventolin HFA) 90 mcg inhalation Q4H PRN apixaban (Eliquis) 5 mg PO BID bupropion HCl XL 300 mg PO DAILY celecoxib 200 mg PO BID 30 days clonazepam 0.5 mg PO DAILY docusate sodium 100 mg PO BID 30 days ferrous sulfate (FeroSul) 325 mg PO DAILY gabapentin 100 mg PO BEDTIME 7 days lamotrigine 300 mg PO BEDTIME melatonin 3 mg PO BEDTIME methocarbamol 500 mg PO TID 7 days cojsbqdg-njl-WE-lycopen-lutein 0.4 mg-300 mcg- 250 mcg (CertaVite Senior) 1 tab PO BEDTIME nicotine (polacrilex) 2 mg buccal Q2H PRN 30 days omeprazole 20 mg PO DAILY@0630 oxycodone 10 mg PO Q4H PRN 7 days oxycodone 5 mg PO Q12H PRN rosuvastatin 10 mg PO BEDTIME sulfamethoxazole-trimethoprim 800-160 mg (Bactrim DS) 1 tab PO BID 7 days tizanidine 4 - 8 mg PO BEDTIME PRN trazodone 200 mg PO BEDTIME walker Folding front wheeled walker walker Folding front wheeled walker zolpidem 10 mg PO BEDTIME PFSH Medical History Depression Asthma Migraines PVD (peripheral vascular disease) Elevated cholesterol COPD (chronic obstructive pulmonary disease) HTN (hypertension) Arthritis GERD (gastroesophageal reflux disease) Paroxysmal atrial flutter Status post placement of implantable loop recorder WPW (Tfgfx-Wlbijdfud-Kbdzg syndrome) Surgical History Status post total left knee replacement (~03/15/25) History of hip surgery Hx of cholecystectomy History of cardiac radiofrequency ablation H/O colonoscopy History of hip surgery History of hip surgery History of back surgery Hx of neck surgery Family History Father HTN (hypertension) Mother HTN (hypertension) Social History Housing Other:: mobile home Are you a primary career placement services counselor to a significant other at home: No Do you presently have visiting nurse or other home services: Yes ([employer]) Patient Tobacco Use Status: Current everyday Tobacco user Tobacco use type: Cigarette Cigarettes Per Day: 5 Years Smoked: 50 Advance Directives Date on File: 03/17/25 service: No Current occupational status: disabled Current occupation: Right hand dominate Physical Exam Vital Signs: BMI result Body Mass Index 31.9 Extrem Other: Right knee examination shows that the surgical incision is healing well, no erythema, full active extension and flexion to 100 degrees, her patella tracks well Assessment & Plan Assessment & Plan (1) Right knee pain: Code(s): M25.561 - Pain in right knee Category: Medical Plan Ms. Hickman is doing well after undergoing right total knee replacement surgery on 07/19/2025. Her right knee dressing was changed. She will continue with her physical therapy exercises. At this point she does not have any evidence of infection. She can remain off of antibiotics. She will follow up next week as scheduled. Feel free to call me at any time should questions regarding her orthopedic management arise. Medications: New oxycodone Partial Fill upon patient request. Take 1-2 tabs every 4 hours as needed for pain 10 mg (2 x 5 mg) PO Q4H PRN 40 tabs 0RF pain Discontinued oxycodone Partial Fill upon patient request. Discontinued Reason: Doctor's Order 10 mg PO Q4H 7 days PRN 42 tabs 0RF Pain, Moderate(Pain Scale 4-6) Coding Level of Care Code Global (58270) Diagnoses Right knee pain M25.561
[2025-07-26 13:31] VITALS: BMI 31.9
--- OUTSIDE RECORDS SUMMARY | 2025-07-26 16:48 | XMS_ITS | Clinical Summary ---
Author Organization [facility] Address [address] [place] [address] Care Team Providers Care [employer]il[employer] Name Role Phone Hosea Douglas PA-C Primary [...] age to complete this topic Care Teams [employer] Relationship Specialty Start Date End Date Hosea Douglas PA-C PCP - General Medical Services 12/11/21
--- OUTSIDE RECORDS SUMMARY | 2025-07-26 16:48 | XMS_ITS | Clinical Summary ---
Author Organization [facility] [address] [place] [address] Address [address] [place], [place] Phone Care Team Providers Care Gold Blower Name Role Phone Hosea Douglas Primary Care Provider [phone] Allergies Active Allergy Reactions Criticality Noted Date [...] 5 % patchIndication s:Atrial flutter, unspecified type ([facility] V24, [facility] V28),Uncomplica koko asthma, unspecified asthma severity, unspecified whether persistent,Esse ntial hypertension,Ch ronic obstructive pulmonary disease with acute exacerbation ([facility] V24, [facility] V28) Apply 1 patch topically 1 (one) [...] Pain due to left hip joint prosthesis ([facility] V 24) 02/07/2023 Primary osteoarthritis of left [...] with Ansley Lobo PVD (peripheral vascular disease) ([facility] V24) 02/24/2013 COPD (chronic obstructive pu lmonary disease) ([facility] V24, [facility] V28) 10/28/2012 Insomnia 10/28/2012 Abdominal pain 07/24/2012 Knee pain 01/30/2010 Patella, chondromalacia 01/30/2010 Low back pain 01/13/2010 Radiculitis, lumbosacral 01/13/2010 Lumbar spondylosis 01/07/2010 Migraine 12/12/2007 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): Had open heart surgery Encounters Date Type Department Care Team Description 07/13/2025 Telephone Adult Medicine [address] [phone] Erasmo Jackson LPN 07/01/2025 Results Follow-Up Adult Medicine [address] [phone] Jayme Kenyon MD 06/30/2025 10:00 AM EDT Consult Adult Medicine [address] [phone] Jayme Kenyon MD Preop examination (Primary Dx); Paroxysmal atrial fibrillation (CMS/HCC V24, CMS/HCC V28); Chronic obstructive pulmonary disease with acute exacerbation (CMS/HCC V24, CMS/HCC V28); Screening for diabetes mellitus (DM); Tobacco dependency 06/22/2025 Telephone Adult Medicine [facility] [address] [place] [address] Hosea Douglas PA 06/12/2025 Telephone Adult Medicine [facility] [address] [place] [phone] Hosea Douglas PA 06/03/2025 1:30 PM EDT Office Visit Orthopedic Surgery [address] [phone] Kamar Smith DPM PVD (peripheral vascular disease) ([facility] V24) (Primary Dx); Pain in [...] PROCEDURE: HISTORICAL TONSILLECTOMY OTHER SURGICAL HISTORY PROCEDURE: MA LIG/TRNSXJ FLP TUBE ABDL/VAG APPR UNI/BI OTHER SURGICAL HISTORY 08/2014 PROCEDURE: [place] UNLISTED PROCEDURE SPINE; COMMENT: L4- L5 lumbar fusion COLONOSCOPY 04/17/2016 PROCEDURE: HISTORICAL COLONOSCOPY; COMMENT: 10 mm sigmoid colon polyp: Tubulovillous adenoma. OTHER SURGICAL HISTORY 03/2018 PROCEDURE: MA RMVL TOT DISC ARTHRP ANT 1 INTERSPACE CERVICAL; COMMENT: cer disckectomy C5- C7 OTHER SURGICAL HISTORY 01/08/2022 PROCEDURE: [place] ANESTHESIA OPEN TOTAL HIP ARTHROPLASTY; COMMENT: dr. angel, done in [place] OTHER SURGICAL HISTORY 05/22/2022 Right PROCEDURE: [place] ANESTHESIA OPEN TOTAL HIP ARTHROPLASTY; COMMENT: [place] [...] s COPD (chronic obstructive pu lmonary disease) ([facility] V24, [facility] V28) 10/28/2012 DX:COPD (chronic o bstructive pulmonary disease) ([facility]) Insomnia 10/28/2012 DX:Insomnia PVD (peripheral vascular dis ease) ([facility] V24) 02/24/2013 DX:PVD (peripheral vascular disease) (HCC) Major depression 02/24/2013 DX:Major depres jon Borderline abnormal TFTs 02/24/2013 DX:Bord jaime abnormal TFTs Need for hepatitis C screening test 02/24/2013 DX:Need for hepatitis C screening test Historical Medical DX 01/07/2010 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 For example, salesperson children's shoes or elderly care for an older adult? [...] PM EST Office Visit Orthopedic Surgery - [place] [address] [place] [address] [place] [phone] Kamar Smith, ESSIE [address] [place] [address] Health Maintenance Due Date Last Done Comments [...] CBC auto differential (06/30/2025 12:55 PM EDT) [facility] WBC 8.9 4.8 - 10.8 K/mcL LAB HEMETOLOG[facility] RBC 4.90(H) 3.80 - 4.80 M/mcL LAB HEMETOLOGY METHOD 06/30/2025 2:[facility] Hemoglobin 14.1 11.5 - 16.0 g/dL LAB HEMETOLOGY METHOD 06/30/2025 2:[facility] Hematocrit 43.2 35.0 - 47.0 % LAB HEMETOLOGY METHOD 06/30/2025 2:[facility] MCV 89.1 79.0 - 98.0 FL LAB HEMETOLOGY METHOD 06/30/2025 2:[facility] MCH 29.1 27.0 - 32.0 pcg LAB HEMETOLOGY METHOD 06/30/2025 2:09 PM [facility] MCHC 32.6 32.0 - 37.0 g/dL LAB HEMETOLOGY METHOD 06/30/2025 2:09 PM [facility] RDW 14.1 11.0 - 15.0 % LAB HEMETOLOGY METHOD 06/30/2025 2:09 PM [facility] Platelets 280 130 - 400 K/mcL LAB HEMETOLOGY METHOD 06/30/2025 2:09 PM [facility] MPV 10.6 7.0 - 11.0 FL LAB HEMETOLOGY METHOD 06/30/2025 2:[facility] NRBC 0.0 <1.0 % LAB HEMETOLOGY METHOD 06/30/2025 2:09 [facility] NRBC Absolute 0.00 <0.10 K/mcL LAB HEMETOLOGY METHOD 06/30/2025 2:09 PM [facility] Neutrophils Relative 52.2 % LAB HEMETOLOGY METHOD 06/30/2025 2:09 PM [facility] Lymphocytes Relative 35.8 % LAB HEMETOLOGY METHOD 06/30/2025 2:09 PM [facility] Monocytes Relative 9.7 % LAB HEMETOLOGY METHOD 06/30/2025 2:09 PM [facility] Eosinophils Relative 1.3 % LAB HEMETOLOGY METHOD 06/30/2025 2:09 PM [facility] Basophils Relative 0.8 % LAB HEMETOLOGY METHOD 06/30/2025 2:09 PM [facility] Immature Granulocytes Relative 0.2 % LAB HEMETOLOGY METHOD 06/30/2025 2:09 PM [facility] Neutrophils Absolute 4.64 1.50 - 7.00 K/mcL LAB HEMETOLOGY METHOD 06/30/2025 2:09 PM [facility] Lymphocytes Absolute 3.19 1.00 - 5.00 K/mcL LAB HEMETOLOGY METHOD 06/30/2025 2:09 PM [facility] Monocytes Absolute 0.86 0.20 - 1.00 K/mcL LAB HEMETOLOGY METHOD 06/30/2025 2:09 PM [facility] Eosinophils Absolute 0.12 0.00 - 0.50 K/mcL LAB HEMETOLOGY METHOD 06/30/2025 2:09 PM [facility] Basophils Absolute 0.07 0.00 - 0.20 K/mcL LAB HEMETOLOGY METHOD 06/30/2025 2:09 PM [facility] Immature Granulocytes Absolute 0.02 0.00 - 0.03 K/mcL LAB HEMETOLOGY METHOD 06/30/2025 2:09 PM [facility] Blood Venous blood specimen / Unknown Venipuncture / Unknown 06/30/2025 12:55 PM EDT 06/30/2025 12:55 PM EDT us Jayme Kenyon MD LAB BLOOD ORDERABLES F inal Result Performing Organization Address [facility]/ZIP Co de Phone Number [facility] [address] [place] [address], [place] [phone] * Hemoglobin A1c (06/30/2025 12:55 PM EDT) [facility] Hemoglobin A1C 5.3 <6.5 % LAB CHEMISTRY METHOD 06/30/2025 10:08 PM EDT [facility] Mean Bld Glu Estim. 105 mg/dL LAB CHEMISTRY METHOD 06/30/2025 10:08 PM EDT [facility] Blood Venous blood specimen / Unknown Venipuncture / Unknown 06/30/2025 12:55 PM EDT 06/30/2025 12:55 PM EDT us Jayme Kenyon MD LAB BLOOD ORDERABLES F inal Result Performing Organization Address City/[facility]/ZIP Co de Phone Number [facility] [address] [place] [address], [place] [phone] * Comprehensive metabolic panel (06/30/2025 12:55 PM EDT) [facility] Sodium 137 133 - 145 mmol/L LAB CHEMISTRY METHOD 06/30/2025 5:45 PM EDT [facility] Potassium 4.2 3.5 - 5.5 mmol/L LAB CHEMISTRY METHOD 06/30/2025 5:45 PM EDT [facility] Chloride 105 96 - 110 mmol/L LAB CHEMISTRY METHOD 06/30/2025 5:45 PM EDT [facility] CO2 28 21 - 32 mmol/L LAB CHEMISTRY METHOD 06/30/2025 5:45 PM [facility] Anion Gap 4 3 - 11 LAB CHEMISTRY METHOD 06/30/2025 5:45 PM [facility] Glucose 79 70 - 100 mg/dL LAB CHEMISTRY METHOD 06/30/2025 5:45 PM [facility] BUN 10 5 - 25 mg/dL LAB CHEMISTRY METHOD 06/30/2025 5:45 PM [facility] Creatinine 1.00 0.50 - 1.10 mg/dL LAB CHEMISTRY METHOD 06/30/2025 5:45 PM [facility] eGFR 63 >=60 mL/min/1. 73m2 LAB CHEMISTRY METHOD 06/30/2025 5:45 PM [facility] Comment:Calculation based on the Chronic Kidney Disease Epidemiology Collaboration (CKD-EPI) equation refit without adjustment for race. BUN/Creatinine Ratio 10.0 LAB CHEMISTRY METHOD 06/30/2025 5:45 PM [facility] Calcium 9.2 8.5 - 10.5 mg/dL LAB CHEMISTRY METHOD 06/30/2025 5:45 PM [facility] AST (SGOT) 31 10 - 42 unit/L LAB CHEMISTRY METHOD 06/30/2025 5:45 PM [facility] ALT (SGPT) 41 10 - 60 unit/L LAB CHEMISTRY METHOD 06/30/2025 5:45 PM [facility] Alkaline Phosphatase 121 42 - 121 unit/L LAB CHEMISTRY METHOD 06/30/2025 5:45 PM [facility] Total Protein 7.0 6.0 - 8.0 g/dL LAB CHEMISTRY METHOD 06/30/2025 5:45 PM [facility] Albumin 3.8 3.2 - 5.0 g/dL LAB CHEMISTRY METHOD 06/30/2025 5:45 PM [facility] Total Bilirubin 0.4 0.0 - 1.4 mg/dL LAB CHEMISTRY METHOD 06/30/2025 5:45 PM EDT [facility] Blood Venous blood specimen / Unknown Venipuncture / Unknown 06/30/2025 12:55 PM EDT 06/30/2025 12:55 PM EDT us Jayme Kenyon MD LAB BLOOD ORDERABLES F inal Result [facility] ([facility]) [facility] [address] [place] [address], [place] [phone] * CT Lung Screening (02/18/2025 1:43 PM [...] Signed Date: 02/19/2025 05:47 ET Workstation ID: [id number] Transcribed By: Self Edit Transcribed Date: 02/19/2025 [...] Signed Date: 02/19/2025 05:47 ET Workstation ID: [id number] Transcribed By: Self Edit Transcribed Date: 02/19/2025 05:41 ET Carol Leos MD IMG CT PROCEDURES Final Result * Lipid panel with reflex to direct LDL (12/15/2024 1:59 PM EDT) Cholesterol 177 0 - 200 mg/dL LAB CHEMISTRY METHOD 12/15/2024 5:06 PM EDT [facility] Triglycerides 130 0 - 150 mg/dL LAB CHEMISTRY METHOD 12/15/2024 5:06 PM EDT [facility] HDL 56 >=40 mg/dL LAB CHEMISTRY METHOD 12/15/2024 5:06 PM EDT [facility] LDL Calculated 95 0 - 100 mg/dL LAB CHEMISTRY METHOD 12/15/2024 5:06 PM EDT [facility] VLDL Cholesterol Luigi 26 mg/dL LAB CHEMISTRY METHOD 12/15/2024 5:06 PM EDT [facility] Non HDL Chol. (LDL+VLDL) 121 <145 mg/dL LAB CHEMISTRY METHOD 12/15/2024 5:06 PM EDT [facility] Chol/HDL Ratio 3.2 0.0 - 4.4 LAB CHEMISTRY METHOD 12/15/2024 5:06 PM EDT [facility] Blood Venous blood specimen / Unknown Venipuncture / Unknown 12/15/2024 1:59 PM EDT 12/15/2024 1:59 PM EDT Hosea CERVANTES LAB BLOOD ORDERABLES Tanisha l Result [facility] [address] [place] [address], [place] [phone] * Depression Screening (11/25/2023) Depression Screening abstracted [...] esult * Cervical Cancer Screening: HPV (07/05/2022) [facility] Cervical Cancer Screening: HPV abstracted, negative Result [facility] Provider HEALTH MAINTENANCE Final Result * Colonoscopy (02/03/2021) [facility] Colonoscopy abstracted, no interpretation Anatomical Region Laterality Modality Other Historical Provider HEALTH MAINTENANCE Final Result * Hepatitis C Screening (06/05/2013) [facility] Hepatitis C Screening abstracted Result [facility] Historical Provider HEALTH MAINTENANCE Final Result from Last 3 Months or Most Recently Relevant to Health Maintenance Insurance MEDIC[place] Care Teams Gold Blower Relationship Specialty Start Date End Date Hosea Douglas PA [address] [place] [address] PCP - General Internal Medicine 02/01/21
--- OUTSIDE RECORDS SUMMARY | 2025-07-26 16:48 | XMS_ITS | Data Portability ---
Author Organization [place] [facility] Address [address] [place] [id number] Care Team Providers Care Brim And Crown Presser Name Role Phone TANYA [place] Primary Care Provider [phone] Assessment Encounter Date Assessment Date Assessment LastModified [...] (A+B) 2018 019 [facility], [address] [place] [address] [place], [address], 9 19:27:45 Referral None recorded. Procedures None recorded. Surgeries None recorded. Imaging XR, chest, 2 view - [facility] by [facility] 2018 [facility], [address] , [place], [address], 9 05:36:28 Medication Orders ipratropi um 0.5 mg-albute rol 3 mg (2.5 mg base)/3 mL nebulizat ion soln 2018 019 [facility]acy #[id number], [address] [place], [address], 9 21:03:08 doxycycli ne hyclate 100 mg capsule 2018 019 [facility]/Pharmacy #[id number], [address] [place], [address], 9 21:03:10 prednison e 20 mg tablet 2018 019 [facility]/Pharmacy #[id number], [address] [place], [address], 9 21:03:10 prednison e 10 mg tablet 2018 019 [facility]armacy #[id number], [address] [place], [address], 9 21:03:08 doxycycli ne hyclate 100 mg capsule 2018 019 [facility]acy #[id number], [address] [place] [address], [address], 9 21:03:08 Patient TargetsNo targets recorded. Patient Instructions Encounter Date Encounter Id Patient Instructions Last Modified By Organization Details Last Modified Time 08/11/2019 [id number] Viral Illness Discharge Instructions BASIC INFORMATION A [...] in your condition between 8am-10pm, please call [facility] at [phone] to help navigate your care. chito Not available 08/11/2019 19:28:10 08/15/2019 [id number] [facility] yo [facility] We cannot always find the exact [...] in your condition between 8am-10pm, please call [facility] at [phone] to help navigate your care. beatrice Not available 08/15/2019 21:03:05 Reason for Referral None Reported. Results Created Date Observation Date Name Description Value Unit Range Abnormal Flag Note LastModifiedBy Organization Detail LastModifiedTime 08/11/20 19 08/11/2019 rapid flu (A+B) Flu A negati ve Not Available [facility] [address] [place], [address], 08/11/2019 19:18:15 08/11/20 19 08/11/2019 rapid flu (A+B) Flu B negati ve Not Available [facility] [address] [place], [address], 08/11/2019 19:18:15 08/11/20 19 08/11/2019 rapid flu (A+B) Control Visual ized / Valid Not Available [facility] [address] [place], [address], 08/11/2019 19:18:15 Result Notes None recorded. Problems Name Problem SNOMED Code Status Onset Date Resolution Date Notes Provider Name and Address Organization Details Recorded Time Chronic obstructive pulmonary disease 35105314 Active 2018 OCTAVIO ROOT NP [address] [place], [address], [place] [facility] 9 21:03:35 Problem Notes None recorded. Procedures Surgical History Date Name Laterality Status Provider Name and Address Organization Details Recorded Time 9 Nebulizer treatment - DH completed OCTAVIO ROOT NP [address] [place], [address], [place] [facility] 08/15/2019 21:55:13 Imaging Results [...] % 98.4 [degF] 106/58 mm[Hg] Not Available [facility] 9 19:02:55 Date Recorded Oxygen saturation Oxygen saturation in Arterial blood by Pulse oximetry Heart rate Body temperature Respiratory rate Systolic And Diastolic Provider Name and Address Organization Details Last Updated DateTime 9 94 % 94 % 78 /min 98.4 [degF] 20 /min 118/76 mm[Hg] Not Available [facility] 9 20:54:14 Social History Question Answer Notes LastModified by Organizat ion Details LastModified Time Tobacco Smoking Status Current Every Day Smoker HELEN BENSON [address] [place], [address], [place] [facility] 08/11/2019 19:06:46 Do You [...] Artery Disease N Cancer N Stroke N COPD Y Depression Y Asthma N High Cholesterol N Pulmonary Embolism N Hypertension N Kidney Disease N Gynecological HistoryNo gynecological history recorded. Obstetrics History GPAL:G 0 P 0 0 0 0 Past Encounters Encounter ID Performer Location Encounter Start Date Encounter Closed Date Diagnosis/Indication Diagnosis SNOMED-CT Code Diagnosis ICD10 Code Diagnosis IMO Codes Diagnosis Note [id number] HELEN BENSON [facility] [address] [place] [address] 08/11/2019 18:51:44 08/11/2019 20:54:03 Viral respiratory infection 437786800 J06.9 [id number] OCTAVIO ROOT NP [facility] [address] [place] [address] 08/15/2019 20:50:34 08/15/2019 22:02:14 Community acquired pneumonia 305666320 J18.9 Health Concerns Section Related Observation LastModified by Organization Detai ls LastModified Time None Recorded Concern Status LastModified by Organization Details LastModified Time None Recorded Advance Directives Directive N: Payers Insurance Date Sequence Insurance Name Policy Number Policy Gutiérrez Covered Member ID Gutiérrez Member ID Guarantor Name 08/11/2019 1 *SELF PAY* Laura Marylou [id number] Laura Marylou 08/13/2019 1 [place]IC[place] B-[place]: [employer] Laura M Marylou [id number] Laura Marylou 08/11/2019 2 [place] [facility] Laura Marylou [id number] Laura Marylou Notes Date Note Type Note [...] sinus congestion. HELEN BENSON [address], [place], [address], [place] [facility] 08/11/2019 20:54:01 08/15/2019 text/html [...] running. OCTAVIO ROOT NP [address], [place], [address], [place] [facility] 08/15/2019 22:02:12 OBGyn Episode No OBEpisode recorded.
--- OUTSIDE RECORDS SUMMARY | 2025-07-26 16:49 | XMS_ITS | Data Portability ---
Author Organization [facility] UROLOGY Address [address] [facility] [address] [place] [address] Care Team Providers Care Audio Engineer Name Role Phone NONE, LISTED Primary [...] - s/p left THR on 01/08/22 in [place] - surgical wound infection - possible prosthetic [...] - s/p left THR on 01/08/22 in [place] - surgical wound infection - possible prosthetic [...] auto diff 2021 022 [email or web address], [address] [place] [address], [address], 10:47:10 HbA1c (hemoglobi n A1c), blood 2021 022 [email or web address], [address] [place] [address], [address], 2 10:47:10 methicilli n resistant staphyloco ccus aureus, culture, nasal 2021 022 [email or web address], [address] [place] [address], [address], 2 10:47:10 type + screen, blood 2021 022 [email or web address], [address] [place] [address], 08[address], 2 10:47:10 CMP, serum or plasma 2021 022 JOSÉ MIGUEL [facility], [address] [place] [address], [address], 14:03:58 ESR (erythrocy te sedimentat ion rate), blood 2021 [facility], [address] [place] [address], 8[address], 13:29:45 C-reactive protein, quantitati ve, serum or plasma 2021 [email or web address], [address] [place] [address], [address], 08:04:31 CBC w/ auto diff 2021 [facility], [address] [place] [address], [address], 12:48:54 CMP, serum or plasma 2021 [facility], [address] [place] [address], [address], 13:26:12 ESR (erythrocy te sedimentat ion rate), blood 2021 [facility], [address] [place] [address], [address], 12:58:48 C-reactive protein, quantitati ve, serum or plasma [facility], [address] [place] [address], [address], 07:18:26 Referral physical therapist referral 2021 [email or web address] Not available 11:50:50 Procedures None recorded. Surgeries total hip arthroplas ty, anterior approach (SURG) 2021 [email or web address] Not available 08:18:[address], hip, w/o contrast 2021 JOSÉ MIGUEL Not available 08/16/202 2 17:05:42 Medication Orders oxycodone 10 mg tablet 2021 022 JOSÉ MIGUEL [place], [place] - [id number], [address] [place], [address], 11:31:26 celecoxib 200 mg capsule 2021 022 [email or web address] [place], [place] - [id number], [address] [place], [address], 2 12:52:05 Patient TargetsNo targets recorded. Patient [...] X10_3 /uL 4.5-11 .0 normal Not Available [place] [address] [facility] [address], [place], [address] 02/15/2022 11:45:46 02/16/20 22 02/15/2022 COMPL ETE BLOOD COUNT AUTO DIFF red blood count 4.55 X10_6 /uL 3.70-5 .00 normal Not Available [facility] [address] [employer] [facility] [address], [place], [address] 02/15/2022 11:45:46 02/16/2002/15/2022 COMPL ETE BLOOD COUNT AUTO DIFF hemoglobin 12.5 g/dL 11.0-1 6.0 normal Not Available [facility] [address] [facility] [address], [place], [address] 02/15/2022 11:45:46 02/16/2002/15/2022 COMPL ETE BLOOD COUNT AUTO DIFF hematocrit 41.1 % 33.5-4 5.0 normal Not Available [facility] [address] [facility] [address], [place], [address] 02/15/2022 11:45:46 02/16/20 22 02/15/2022 COMPL ETE BLOOD COUNT AUTO DIFF mean corpuscular volume 90.3 fL 80.0-1 00.0 normal Not Available [facility] [address] [facility] [address], [place], [address] 02/15/2022 11:45:46 02/16/20 22 02/15/2022 COMPL ETE BLOOD COUNT AUTO DIFF mean corpuscular hemoglobin 27.5 pg 27.0-3 4.0 normal Not Available [facility] [address] [address], [place], [address] 02/15/2022 11:45:46 02/16/20 22 02/15/2022 COMPL ETE BLOOD COUNT AUTO DIFF mean corpuscular HGB conc 30.4 g/dL 31.0-3 6.0 low Not Available [facility] [address] [address], [place], [address] 02/15/2022 11:45:46 02/16/20 22 02/15/2022 COMPL ETE BLOOD COUNT AUTO DIFF red cell distribution width 15.0 % 11.5-1 5.0 normal Not Available [facility] [address] [address], [place], [address] 02/15/2022 11:45:46 02/16/20 22 02/15/2022 COMPL ETE BLOOD COUNT AUTO DIFF platelet count 323 X10_3 /uL 150-40 0 normal Not Available [facility] [address] [address], [place], [address] 02/15/2022 11:45:46 02/16/20 22 02/15/2022 COMPL ETE BLOOD COUNT AUTO DIFF immature granulocytes % (auto) 0.2 % Not Available [facility] [address] [facility] [address], [place], [address] 02/15/2022 11:45:46 02/16/20 22 02/15/2022 COMPL ETE BLOOD COUNT AUTO DIFF neutrophils % (auto) 42.5 % Not Available [facility] [address] [facility] [address], [place], [address] 02/15/2022 11:45:46 02/16/20 22 02/15/2022 COMPL ETE BLOOD COUNT AUTO DIFF lymphocytes % (auto) 43.3 % Not Available [facility] [address] [facility] [address], [place], [address] 02/15/2022 11:45:46 02/16/20 22 02/15/2022 COMPL ETE BLOOD COUNT AUTO DIFF monocytes % (auto) 9.8 % Not Available [facility] [address] [address], [place], [address] 02/15/2022 11:45:46 02/16/20 22 02/15/2022 COMPL ETE BLOOD COUNT AUTO DIFF eosinophils % (auto) 3.7 % Not Available [facility] [address] [address], [place], [address] 02/15/2022 11:45:46 02/16/20 22 02/15/2022 COMPL ETE BLOOD COUNT AUTO DIFF basophils % (auto) 0.5 % Not Available [address] [address], [place], [address] 02/15/2022 11:45:46 02/16/20 22 02/15/2022 COMPL ETE BLOOD COUNT AUTO DIFF immature granulocytes # (auto) 0.02 X10_3 /uL 0.00-0 .09 normal Not Available [address] [address], [place], [address] 02/15/2022 11:45:46 02/16/20 22 02/15/2022 COMPL ETE BLOOD COUNT AUTO DIFF neutrophils # (auto) 4.2 X10_3 /uL 1.5-7. 8 normal Not Available [address] [address], [place], [address] 02/15/2022 11:45:46 02/16/20 22 02/15/2022 COMPL ETE BLOOD COUNT AUTO DIFF lymphocytes # (auto) 4.3 X10_3 /uL 1.0-4. 8 normal Not Available [facility] [address] [facility] [address], [place], [address] 02/15/2022 11:45:46 02/16/20 22 02/15/2022 COMPL ETE BLOOD COUNT AUTO DIFF monocytes # (auto) 1.0 X10_3 /uL 0.0-0. 8 high Not Available [facility] [address] [address], [place], [address] 02/15/2022 11:45:46 02/16/20 22 02/15/2022 COMPL ETE BLOOD COUNT AUTO DIFF eosinophils # (auto) 0.4 X10_3 /uL 0.0-0. 5 normal Not Available [facility] [address] [address], [place], [address] 02/15/2022 11:45:46 02/16/20 22 02/15/2022 COMPL ETE BLOOD COUNT AUTO DIFF basophils # (auto) 0.1 X10_3 /uL 0.0-0. 2 normal Not Available [facility] [address] [address], [place], [address] 02/15/2022 11:45:46 02/16/20 22 02/15/2022 COMPL ETE BLOOD COUNT AUTO DIFF nucleated RBC% 0.0 /100_ WBC 0.0-0. 0 normal Not Available [facility] [address] [address], [place], [address] 02/15/2022 11:45:46 02/16/20 22 02/15/2022 ERYTH ROCYT E SEDIM ENTAT ION RATE erythrocyte sedimentatio n rate 34 mm/HR 0-30 high Not Available [facility] [address] [address], [place], [address] 02/15/2022 11:59:22 02/16/20 22 02/15/2022 COMPR EHENS PARMINDER METAB OLIC PANEL sodium 138 mmol/ L 137-14 6 normal Not Available [facility] [address] [address], [place], [address] 02/15/2022 12:02:00 02/16/20 22 02/15/2022 COMPR EHENS PARMINDER METAB OLIC PANEL potassium,K 4.0 mmol/ L 3.5-5. 3 normal Not Available [facility] [address] [address], [place], [address] 02/15/2022 12:02:00 02/16/20 22 02/15/2022 COMPR EHENS PARMINDER METAB OLIC PANEL chloride 101 mmol/ L 98-107 normal Not Available [facility] [address] [address], [place], [address] 02/15/2022 12:02:00 02/16/20 22 02/15/2022 COMPR EHENS PARMINDER METAB OLIC PANEL carbon dioxide 28 mmol/ L 23-32 normal Not Available [facility] [address], [place], [address] 02/15/2022 12:02:00 02/16/20 22 02/15/2022 COMPR EHENS PARMINDER METAB OLIC PANEL anion gap 9 mmol/ L 5-15 normal Not Available [facility] [address], [place], [address] 02/15/2022 12:02:00 02/16/20 22 02/15/2022 COMPR EHENS PARMINDER METAB OLIC PANEL blood urea nitrogen 4 mg/dL 5-25 low Not Available [facility] [address], [place], [address] 02/15/2022 12:02:00 02/16/20 22 02/15/2022 COMPR EHENS PARMINDER METAB OLIC PANEL creatinine 0.9 mg/dL 0.5-1. 1 normal Not Available [facility] [address], [place], [address] 02/15/2022 12:02:00 02/16/20 22 02/15/2022 COMPR EHENS PARMINDER METAB OLIC PANEL estimated GFR ( nikhil 81 >=60 mL/min / Not Available [facility] [address], [place], [address] 02/15/2022 12:02:00 02/16/20 22 02/15/2022 COMPR EHENS PARMINDER METAB OLIC PANEL estimated GFR (non afr nikhil 69 >=60 mL/min / Not Available [facility] [address], [place], [address] 02/15/2022 12:02:00 02/16/20 22 02/15/2022 COMPR EHENS PARMINDER METAB OLIC PANEL BUN/creatini ne ratio 4.4 10.0-2 0.0 low Not Available [facility] [address], [place], [address] 02/15/2022 12:02:00 02/16/20 22 02/15/2022 COMPR EHENS PARMINDER METAB OLIC PANEL glucose 91 mg/dL <100 -fasti ng normal Not Available [facility] [address], [place], [address] 02/15/2022 12:02:00 05/19/02/15/2022 COMPR EHENS PARMINDER METAB OLIC PANEL calcium 9.0 mg/dL 8.6-10 .3 normal Not Available [facility] [address] [place] [address], [place], [address] 02/15/2022 12:02:00 02/16/20 22 02/15/2022 COMPR EHENS PARMINDER METAB OLIC PANEL bilirubin,to gab < 0.2 mg/dL <1.2 Not Available [facility] [address] [address], [place], [address] 02/15/2022 12:02:00 02/16/20 22 02/15/2022 COMPR EHENS PARMINDER METAB OLIC PANEL aspartate amino transferase 17 U/L 15-41 normal Not Available [facility] [address] [address], [place], [address] 02/15/2022 12:02:00 02/16/20 22 02/15/2022 COMPR EHENS PARMINDER METAB OLIC PANEL alanine aminotransfe rase 12 U/L 14-54 low Not Available [facility] [address] [address], [place], [address] 02/15/2022 12:02:00 02/16/20 22 02/15/2022 COMPR EHENS PARMINDER METAB OLIC PANEL total protein 7.2 g/dL 6.4-8. 3 normal Not Available [facility] [address] [address], [place], [address] 02/15/2022 12:02:00 02/16/20 22 02/15/2022 COMPR EHENS PARMINDER METAB OLIC PANEL albumin level 3.9 g/dL 4.0-5. 0 low Not Available [facility] [address] [facility] [address], [place], [address] 02/15/2022 12:02:00 02/16/20 22 02/15/2022 COMPR EHENS PARMINDER METAB OLIC PANEL albumin/glob ulin ratio 1.2 1.0-2. 6 normal Not Available [facility] [address] [facility] [address], [place], [address] 02/15/2022 12:02:00 02/16/20 22 02/15/2022 COMPR EHENS PARMINDER METAB OLIC PANEL alkaline phosphatase 202 U/L 35-104 high Not Available [facility] [address] [facility] [address], [place], [address] 02/15/2022 12:02:00 02/16/20 22 02/15/2022 C-DILIA CTIVE PROTE IN C-reactive protein 1.59 mg/dL <0.50 high Not Available [facility] [address] [facility] [address], [place], [address] 02/15/2022 12:02:01 02/20/20 22 02/19/2022 SURGI SOFY PATHO LOGY results Run: 02/22 1047 Speci men Inqui ry ----- ----- ----- ----- ----- ----- ----- ----- ----- ----- ----- ----- ----- ----- ----- ---- Name: ZEYAD MANCILLA PE NNY M Age/S ex: 61/F Locat ion: M7.EM Acct: [id number] Unit: [id number] Statu s: ADM IN Room/ Bed: EM772 [...] /6 [place] [address] /3 75040 Level 4 - Gross and Micro scopi c/3 Kala d (sign ature on file) _ Ean andersen MD 02/22 1047 ----- ----- ----- ----- ----- ----- ----- ----- ----- ----- ----- ----- ----- ----- ----- ---- END OF REPOR T Not Available [facility] [address], [place], [address] 02/22/2022 10:48:07 03/07/20 22 03/07/2022 COMPL ETE BLOOD COUNT AUTO DIFF white blood count 10.2 X10_3 /uL 4.5-11 .0 normal Not Available [facility] [address], [place], [address] 03/07/2022 12:48:54 03/07/20 22 03/07/2022 COMPL ETE BLOOD COUNT AUTO DIFF red blood count 4.42 X10_6 /uL 3.70-5 .00 normal Not Available [facility] [address], [place], [address] 03/07/2022 12:48:54 03/07/20 22 03/07/2022 COMPL ETE BLOOD COUNT AUTO DIFF hemoglobin 12.0 g/dL 11.0-1 6.0 normal Not Available [facility] [address], [place], [address] 03/07/2022 12:48:54 03/07/20 22 03/07/2022 COMPL ETE BLOOD COUNT AUTO DIFF hematocrit 39.0 % 33.5-4 5.0 normal Not Available [facility] [address] [address], [place], [address] 03/07/2022 12:48:54 03/07/20 22 03/07/2022 COMPL ETE BLOOD COUNT AUTO DIFF mean corpuscular volume 88.2 fL 80.0-1 00.0 normal Not Available [address] [address], [place], [address] 03/07/2022 12:48:54 03/07/20 22 03/07/2022 COMPL ETE BLOOD COUNT AUTO DIFF mean corpuscular hemoglobin 27.1 pg 27.0-3 4.0 normal Not Available [address] [address], [place], [address] 03/07/2022 12:48:54 03/07/20 22 03/07/2022 COMPL ETE BLOOD COUNT AUTO DIFF mean corpuscular HGB conc 30.8 g/dL 31.0-3 6.0 low Not Available [address] [address], [place], [address] 03/07/2022 12:48:54 03/07/20 22 03/07/2022 COMPL ETE BLOOD COUNT AUTO DIFF red cell distribution width 14.3 % 11.5-1 5.0 normal Not Available [address] [address], [place], [address] 03/07/2022 12:48:54 03/07/20 22 03/07/2022 COMPL ETE BLOOD COUNT AUTO DIFF platelet count 371 X10_3 /uL 150-40 0 normal Not Available [facility] [address] [address], [place], [address] 03/07/2022 12:48:54 03/07/20 22 03/07/2022 COMPL ETE BLOOD COUNT AUTO DIFF immature granulocytes % (auto) 0.2 % Not Available [address] [address], [place], [address] 03/07/2022 12:48:54 03/07/20 22 03/07/2022 COMPL ETE BLOOD COUNT AUTO DIFF neutrophils % (auto) 42.1 % Not Available [address] [address], [place], [address] 03/07/2022 12:48:54 03/07/20 22 03/07/2022 COMPL ETE BLOOD COUNT AUTO DIFF lymphocytes % (auto) 43.8 % Not Available [facility] [address] [address], [place], [address] 03/07/2022 12:48:54 03/07/20 22 03/07/2022 COMPL ETE BLOOD COUNT AUTO DIFF monocytes % (auto) 8.0 % Not Available [address] [address], [place], [address] 03/07/2022 12:48:54 03/07/20 22 03/07/2022 COMPL ETE BLOOD COUNT AUTO DIFF eosinophils % (auto) 5.0 % Not Available [address] [address], [place], [address] 03/07/2022 12:48:54 03/07/20 22 03/07/2022 COMPL ETE BLOOD COUNT AUTO DIFF basophils % (auto) 0.9 % Not Available [address] [address], [place], [address] 03/07/2022 12:48:54 03/07/20 22 03/07/2022 COMPL ETE BLOOD COUNT AUTO DIFF immature granulocytes # (auto) 0.02 X10_3 /uL 0.00-0 .09 normal Not Available [facility] [address] [address], [place], [address] 03/07/2022 12:48:54 03/07/20 22 03/07/2022 COMPL ETE BLOOD COUNT AUTO DIFF neutrophils # (auto) 4.3 X10_3 /uL 1.5-7. 8 normal Not Available [facility] [address] [address], [place], [address] 03/07/2022 12:48:54 03/07/20 22 03/07/2022 COMPL ETE BLOOD COUNT AUTO DIFF lymphocytes # (auto) 4.5 X10_3 /uL 1.0-4. 8 normal Not Available [facility] [address] [address], [place], [address] 03/07/2022 12:48:54 03/07/20 22 03/07/2022 COMPL ETE BLOOD COUNT AUTO DIFF monocytes # (auto) 0.8 X10_3 /uL 0.0-0. 8 normal Not Available [address] [address], [place], [address] 03/07/2022 12:48:54 03/07/20 22 03/07/2022 COMPL ETE BLOOD COUNT AUTO DIFF eosinophils # (auto) 0.5 X10_3 /uL 0.0-0. 5 normal Not Available [address] [address], [place], [address] 03/07/2022 12:48:54 03/07/20 22 03/07/2022 COMPL ETE BLOOD COUNT AUTO DIFF basophils # (auto) 0.1 X10_3 /uL 0.0-0. 2 normal Not Available [address] [address], [place], [address] 03/07/2022 12:48:54 03/07/20 22 03/07/2022 COMPL ETE BLOOD COUNT AUTO DIFF nucleated RBC% 0.0 /100_ WBC 0.0-0. 0 normal Not Available [address] [address], [place], [address] 03/07/2022 12:48:54 03/07/20 22 03/07/2022 ERYTH ROCYT E SEDIM ENTAT ION RATE erythrocyte sedimentatio n rate 71 mm/HR 0-30 high Not Available [address] [address], [place], [address] 03/07/2022 12:58:48 03/07/20 22 03/07/2022 COMPR EHENS PARMINDER METAB OLIC PANEL sodium 137 mmol/ L 137-14 6 normal Not Available [address] [address], [place], [address] 03/07/2022 13:26:12 03/07/20 22 03/07/2022 COMPR EHENS PARMINDER METAB OLIC PANEL potassium,K 4.0 mmol/ L 3.5-5. 3 normal Not Available [address] [address], [place], [address] 03/07/2022 13:26:12 03/07/20 22 03/07/2022 COMPR EHENS PARMINDER METAB OLIC PANEL chloride 100 mmol/ L 98-107 normal Not Available [address] [address], [place], [address] 03/07/2022 13:26:12 03/07/20 22 03/07/2022 COMPR EHENS PARMINDER METAB OLIC PANEL carbon dioxide 27 mmol/ L 23-32 normal Not Available [facility] [address] [facility] [address], [place], [address] 03/07/2022 13:26:12 03/07/20 22 03/07/2022 COMPR EHENS PARMINDER METAB OLIC PANEL anion gap 10 mmol/ L 5-15 normal Not Available [facility] [address] [facility] [address], [place], [address] 03/07/2022 13:26:12 03/07/20 22 03/07/2022 COMPR EHENS PARMINDER METAB OLIC PANEL blood urea nitrogen 6 mg/dL 5-25 normal Not Available [facility] [address] [facility] [address], [place], [address] 03/07/2022 13:26:12 03/07/20 22 03/07/2022 COMPR EHENS PARMINDER METAB OLIC PANEL creatinine 0.9 mg/dL 0.5-1. 1 normal Not Available [facility] [address] [facility] [address], [place], [address] 03/07/2022 13:26:12 03/07/20 22 03/07/2022 COMPR EHENS PARMINDER METAB OLIC PANEL estimated GFR ( nikhil 81 >=60 mL/min / Not Available [facility] [address] [facility] [address], [place], [address] 03/07/2022 13:26:12 03/07/20 22 03/07/2022 COMPR EHENS PARMINDER METAB OLIC PANEL estimated GFR (non afr nikhil 69 >=60 mL/min / Not Available [facility] [address] [facility] [address], [place], [address] 03/07/2022 13:26:12 03/07/20 22 03/07/2022 COMPR EHENS PARMINDER METAB OLIC PANEL BUN/creatini ne ratio 6.7 10.0-2 0.0 low Not Available [facility] [address] [facility] [address], [place], [address] 03/07/2022 13:26:12 03/07/20 22 03/07/2022 COMPR EHENS PARMINDER METAB OLIC PANEL glucose 95 mg/dL <100 -fasti ng normal Not Available [facility] [address] [facility] [address], [place], [address] 03/07/2022 13:26:12 03/07/20 22 03/07/2022 COMPR EHENS PARMINDER METAB OLIC PANEL calcium 9.2 mg/dL 8.6-10 .3 normal Not Available [facility] [address] [address], [place], [address] 03/07/2022 13:26:12 03/07/20 22 03/07/2022 COMPR EHENS PARMINDER METAB OLIC PANEL bilirubin,to gab < 0.2 mg/dL <1.2 Not Available [facility] [address] [address], [place], [address] 03/07/2022 13:26:12 03/07/20 22 03/07/2022 COMPR EHENS PARMINDER METAB OLIC PANEL aspartate amino transferase 16 U/L 15-41 normal Not Available [facility] [address] [address], [place], [address] 03/07/2022 13:26:12 03/07/20 22 03/07/2022 COMPR EHENS PARMINDER METAB OLIC PANEL alanine aminotransfe rase < 5 U/L 14-54 low Not Available [facility] [address] [address], [place], [address] 03/07/2022 13:26:12 03/07/20 22 03/07/2022 COMPR EHENS PARMINDER METAB OLIC PANEL total protein 7.3 g/dL 6.4-8. 3 normal Not Available [facility] [address] [address], [place], [address] 03/07/2022 13:26:12 03/07/20 22 03/07/2022 COMPR EHENS PARMINDER METAB OLIC PANEL albumin level 4.0 g/dL 4.0-5. 0 normal Not Available [facility] [address] [address], [place], [address] 03/07/2022 13:26:12 03/07/20 22 03/07/2022 COMPR EHENS PARMINDER METAB OLIC PANEL albumin/glob ulin ratio 1.2 1.0-2. 6 normal Not Available [facility] [address] [facility] [address], [place], [address] 03/07/2022 13:26:12 03/07/20 22 03/07/2022 COMPR EHENS PARMINDER METAB OLIC PANEL alkaline phosphatase 182 U/L 35-104 high Not Available [facility] [place] [facility] [address] [facility] [address], [place], [address] 03/07/2022 13:26:12 03/07/20 22 03/07/2022 C-DILIA CTIVE PROTE IN C-reactive protein 1.55 mg/dL <0.50 high Not Available [facility] [address] [facility] [address], [place], [address] 03/07/2022 13:26:13 05/14/20 22 05/14/2022 TYPE AND PETER Lorenzo BBCarina report Run: 05/14 1319 Speci men Inqui ry ----- ----- ----- ----- ----- ----- ----- ----- ----- ----- ----- ----- ----- ----- ----- ---- Name: FIONA ROWLEY M Age/S ex: 61/F Locat ion: PAT.Dewayne Caceres Acct: [id number] Unit: [id number] Statu s: PRE REF Room/ Bed: Re05/14 Disch : Att Dr: Amber cadet MD ----- ----- ----- ----- ----- ----- ----- ----- ----- ----- ----- ----- ----- ----- ----- ---- Blood Type CELI WILLARD Ab Peter lorenzo (Gel) CELI WILLARD ----- ----- ----- ----- ----- ----- ----- ----- ----- ----- ----- ----- ----- ----- ----- ---- END OF REPOR T Not Available [facility] [address] [facility] [address], [place], [address] 05/14/2022 13:19:42 05/14/2005/14/2022 ANNE Goodman ABO/R H TYPE [facility] report Run: 05/14 1319 Speci men Inqui ry ----- ----- ----- ----- ----- ----- ----- ----- ----- ----- ----- ----- ----- ----- ----- ---- Name: ZEYAD FIONA MANCILLA Age/S ex: 61/F Locat ion: PAT.E M Acct: [id number] Unit: [id number] Statu s: PRE REF Room/ Bed: Re05/14 Disch : Att Dr: Amber cadet MD ----- ----- ----- ----- ----- ----- ----- ----- ----- ----- ----- ----- ----- ----- ----- ---- SATURNINO SHANEED TO BE DRAWN ON DOS ----- ----- ----- ----- ----- ----- ----- ----- ----- ----- ----- ----- ----- ----- ----- ---- END OF REPOR T Not Available [facility] [address] [facility] [address], [place], [address] 05/14/2022 13:19:43 05/14/20 22 05/14/2022 ERYTH ROCYT E SEDIM ENTAT ION RATE erythrocyte sedimentatio n rate 66 mm/HR 0-30 high Not Available [facility] [address] [facility] [address], [place], [address] 05/14/2022 13:29:45 05/14/20 22 05/14/2022 HEMOG LOBIN A1C hemoglobin A1C 5.8 4.3-5. 9 normal Not Available [facility] [address] [facility] [address], [place], [address] 05/14/2022 13:32:47 05/14/20 22 05/14/2022 HEMOG LOBIN A1C estimated average glucose 120 mg/dL Not Available [facility] [address] [facility] [address], [place], [address] 05/14/2022 13:32:47 05/14/20 22 05/14/2022 TYPE AND SCREDewayne Lorenzo BBK report Run: 05/14 1400 Speci men Inqui ry ----- ----- ----- ----- ----- ----- ----- ----- ----- ----- ----- ----- ----- ----- ----- ---- Name: FIONA ROWLEYY M Age/S ex: 61/F Locat ion: PAT.E M Acct: [id number] Unit: [id number] Statu s: PRE REF Room/ Bed: Re05/14 [...] END OF REPOR T Not Available [facility] [address], [place], [address] 05/14/2022 14:00:28 05/14/20 22 05/14/2022 C-DILIA CTIVE PROTE IN C-reactive protein 1.18 mg/dL <0.50 high Not Available [facility] [address] [facility] [address], [place], [address] 05/14/2022 14:03:29 05/14/20 22 05/14/2022 COMPR EHENS PARMINDER METAB OLIC PANEL sodium 141 mmol/ L 137-14 6 normal Not Available [facility] [address] [facility] [address], [place], [address] 05/14/2022 14:03:58 05/14/20 22 05/14/2022 COMPR EHENS PARMINDER METAB OLIC PANEL potassium,K 3.9 mmol/ L 3.5-5. 3 normal Not Available [facility] [address] [facility] [address], [place], [address] 05/14/2022 14:03:58 05/14/20 22 05/14/2022 COMPR EHENS PARMINDER METAB OLIC PANEL chloride 104 mmol/ L 98-107 normal Not Available [facility] [address] [facility] [facility] [address], [place], [address] 05/14/2022 14:03:58 05/14/20 22 05/14/2022 COMPR EHENS PARMINDER METAB OLIC PANEL carbon dioxide 29 mmol/ L 23-32 normal Not Available [facility] [address] [facility] [address], [place], [address] 05/14/2022 14:03:58 05/14/20 22 05/14/2022 COMPR EHENS PARMINDER METAB OLIC PANEL anion gap 8 mmol/ L 5-15 normal Not Available [facility] [address] [facility] [address], [place], [address] 05/14/2022 14:03:58 05/14/20 22 05/14/2022 COMPR EHENS PARMINDER METAB OLIC PANEL blood urea nitrogen 5 mg/dL 5-25 normal Not Available [facility] [address] [facility] [address], [place], [address] 05/14/2022 14:03:58 05/14/20 22 05/14/2022 COMPR EHENS PARMINDER METAB OLIC PANEL creatinine 0.9 mg/dL 0.5-1. 1 normal Not Available [facility] [address] [facility] [address], [place], [address] 05/14/2022 14:03:58 05/14/20 22 05/14/2022 COMPR EHENS PARMINDER METAB OLIC PANEL estimated GFR ( nikhil 81 >=60 mL/min / Not Available [facility] [address] [address], [place], [address] 05/14/2022 14:03:58 05/14/20 22 05/14/2022 COMPR EHENS PARMINDER METAB OLIC PANEL estimated GFR (non afr nikhil 69 >=60 mL/min / Not Available [facility] [address] [address], [place], [address] 05/14/2022 14:03:58 05/14/20 22 05/14/2022 COMPR EHENS PARMINDER METAB OLIC PANEL BUN/creatini ne ratio 5.6 10.0-2 0.0 low Not Available [facility] [address] [address], [place], [address] 05/14/2022 14:03:58 05/14/20 22 05/14/2022 COMPR EHENS PARMINDER METAB OLIC PANEL glucose 101 mg/dL <100 -fasti ng high Not Available [facility] [address] [address], [place], [address] 05/14/2022 14:03:58 05/14/20 22 05/14/2022 COMPR EHENS PARMINDER METAB OLIC PANEL calcium 9.4 mg/dL 8.6-10 .3 normal Not Available [facility] [address] [address], [place], [address] 05/14/2022 14:03:58 05/14/20 22 05/14/2022 COMPR EHENS PARMINDER METAB OLIC PANEL bilirubin,to gab < 0.2 mg/dL <1.2 Not Available [facility] [address] [address], [place], [address] 05/14/2022 14:03:58 05/14/20 22 05/14/2022 COMPR EHENS PARMINDER METAB OLIC PANEL aspartate amino transferase 23 U/L 15-41 normal Not Available [facility] [address] [address], [place], [address] 05/14/2022 14:03:58 05/14/20 22 05/14/2022 COMPR EHENS PARMINDER METAB OLIC PANEL alanine aminotransfe rase 13 U/L 14-54 low Not Available [facility] [address] [address], [place], [address] 05/14/2022 14:03:58 05/14/20 22 05/14/2022 COMPR EHENS PARMINDER METAB OLIC PANEL total protein 7.5 g/dL 6.4-8. 3 normal Not Available [facility] [address] [address], [place], [address] 05/14/2022 14:03:58 05/14/20 22 05/14/2022 COMPR EHENS PARMINDER METAB OLIC PANEL albumin level 4.2 g/dL 4.0-5. 0 normal Not Available [facility] [address] [address], [place], [address] 05/14/2022 14:03:58 05/14/20 22 05/14/2022 COMPR EHENS PARMINDER METAB OLIC PANEL albumin/glob ulin ratio 1.3 1.0-2. 6 normal Not Available [facility] [address] [address], [place], [address] 05/14/2022 14:03:58 05/14/20 22 05/14/2022 COMPR EHENS PARMINDER METAB OLIC PANEL alkaline phosphatase 162 U/L 35-104 high Not Available [facility] [address] [address], [place], [address] 05/14/2022 14:03:58 05/14/20 22 05/15/2022 MRSA/ MSSA PRE-O P (NARE S) MRSA/mssa pre-op (nares) No Methic illin Sensit parminder or Resist ant Staph aureus isolat ed. Not Available [facility] [address] [address], [place], [address] 05/15/2022 14:02:41 05/22/20 22 05/22/2022 SURGI SOFY PATHO LOGY results Run: 05/24 4055 Speci men Inqui ry ----- ----- ----- ----- ----- ----- ----- ----- ----- ----- ----- ----- ----- ----- ----- ---- Name: FIONA ROWLEY Age/S ex: 62/F Locat ion: PACU. EM Acct: [id number] Unit: [id number] Statu s: DIS IN Room/ Bed: PACU. [...] sofy bone is red-y ellow , no arutro s or lesio ns seen. Also in [...] CPT Proce dures :Dec[place]cifi [place] n 41118 Hemat oxyli n + Eosin Stain /3 26867 Level 3 - Gross and Micro scopi c Kala d (sign ature on file) _ Josesito felder MD 05/24 1445 ----- ----- ----- ----- ----- ----- ----- ----- ----- ----- ----- ----- ----- ----- ----- ---- END OF REPOR T Not Available [facility] [address], [place], [address] 05/24/2022 14:45:34 02/17/20 22 02/16/2022 XR, hip, unila teral [facility] [address] [place], [place] [address] Patien t Name: NADIA MILLER Medica l Record #: [id number] Addres s: [address] [facility] [id number] City/S mitchell/Z ip: [place] [address]: Kate zayas PAC Phone: Insura nce: Medica re A&B /Ag e/Sex: 1959/6 0/F [facility] No PCC Admit/ Reg Date: Orderi sudheer Dr: Kate zayas, PAC Locati on: [facility] EM/ PCP: Pcp-No n StaffMd Date of Servic e: Order (s): XR hip LT min 2V CPT Code: 77063 Report Number : [id number] Reason for Exam: PAIN Pain [...] ed degene rative change s of the [place] tribe right hip. Dictat ed By: Claribel jasso MD 1454 Signed By: Gene Lucas MD 1500 TD/TT: 1454 Tech: [id number] cc: LHELA; PCPNS* Kate Hatfield eux, PAC; Loreta Waldrop [facility] [address], [place], [address] 02/20/2022 15:35:03 02/17/20 22 02/15/2022 XR, hip, unila teral , 2 or 3 view No observ ation record ed. [facility] Atention: Jethro [address] [facility], [place], [address], 02/20/2022 15:35:04 02/20/20 22 02/19/2022 XR, hip, unila teral , 1 view [facility] Medica l [place] [facility] [address] [place] [address] [phone] Patien t Name: GISELLA BaigNADIAMaura Caceres Medica l Record #: [id number] Addres s: [address] [facility] Accoun t#: [id number] City/S mitchell/Z ip: [place] [address]: Elvia Martinez MD Phone: Insura nce: Medica re A&B /Ag e/Sex: 1959/6 0/F [facility] No PCC Admit/ Reg Date: Calii sudheer Johnson: Kate zayas, PAC Locati on: PACU.E M/PACU . PCP: Memo Nguyen Md Date of Servic e: Order (s): XR hip LT 1V CPT Code: 18893 Report Number : [id number] Reason for Exam: s/p L [...] zayas, PAC; Elvia Martinez MD; Loreta Waldrop [facility] [address] [facility] [address], [place], [address] 02/20/2022 15:35:04 02/20/20 22 02/19/2022 XR, hip, unila teral , 2 or 3 view No observ ation record ed. llheureux [facility] [address] [facility], [place], [address], 02/20/2022 15:35:05 03/09/20 22 03/09/2022 XR, hip + pelvi s, unila teral [facility] [address] [place] [address] Patien t Name: NADIA MILLER Medica l Record #: [id number] Addres s: [address] [facility] Accoun t#: [id number] City/S mit[place]/Z ip: [place] [address]: Kate zayas PAC Phone: Insura nce: Medica re A&B /Ag e/Sex: 1959/ [birth year]/F [facility] No PCC Admit/ Reg Date: Orderi ng Dr: Kate zayas, PAC Locati on: [facility] EM/ PCP: Pcp-No maura StaffMd Date of Servic e: Order (s): XR hip pelvis LT min 2V CPT Code: 07004 Report Number : [id number] Reason for Exam: HIP PAIN [...] PCPNS* Kate zayas, PAC; Dequan vuLoreta ryanne [facility] [address], [place], [address] 03/13/2022 16:45:35 03/09/20 22 03/07/2022 XR, hip, unila teral , 2 or 3 view No observ ation record ed. [facility] At[facility]: Jethro [address] [facility], [place], [address], 03/13/2022 16:45:35 05/15/2005/15/2022 CT, hip, w/o contr ast [facility] Medica l [facility] [address] [place] [address] Patien t Name: NADIA MILLER Morris Medica l Record #: [id number] Addres s: [address] [facility] Accoun t#: [id number] City/S mitchell/Z ip: [place] [address]: Rigo Kennedy PAC Phone: Insura nce: Medica re A&B /Ag e/Sex: 1959/ [birth year]/F [facility] No PCC Admit/ Reg Date: Orderi sudheer Dr: Rigo Kennedy, PAC Locati on: DI.[facility] M/ PCP: Pcp-No n StaffMd Date of Servic e: Order (s): CT johanna hip RT wo contra st CPT Code: 72983 Report Number : [id number] Reason for Exam: OSTEOA RTHRIT [...] Norris i, MD 1704 TD/TT: 1658 Tech: [facility] 01 cc: GENTRY; PCPNS* PIERCE Guevara; Loreta Waldrop [facility] [address] [facility] [address], [place], [address] 05/16/2022 11:03:39 05/22/2005/22/2022 XR, hip, unila teral , 1 view [facility] Medica [facility] [address] [place] [address] [phone] Patien t Name: ZEYADKarthik PRIYA BaigMaura Caceres Medica l Record #: [id number] Addres s: [address] [facility] Accoun t#: [id number] City/S mitchell/[place] ip: [place] [address]: Elvia Martinez MD Phone: Insura nce: Medica re A&B /Ag e/Sex: 1959/ 1/F [facility] No PCC Admit/ Reg Date: Waldo willard Dr: Kate zayas PAC Locati on: PACU.E M/PACU . PCP: PcpHugo Nguyen Md Date of Servic e: Order (s): XR hip RT 1V CPT Code: 94096 Report Number : [id number] Reason for Exam: s/p R [...] zayas PAC; Elvia Martinez MD; Loreta Waldrop [facility] [address] [address], [place], [address] 06/05/2022 16:33:25 05/22/20 22 05/22/2022 XR, hip, unila teral No observ ation record ed. [facility] [address] [place] [address], [address], 06/07/2022 13:05:01 05/23/20 22 05/14/2022 EKG elect tayla jamison [facility] Medica [address] [address] Patien t Name: GISELLA BaigNADIAMaura Caceres Medica l Record #: [id number] Addres s: [address] [facility] Accoun t#: [id number] City/S mitchell/Z ip: [place] [address]: Elvia Martinez MD Phone: Insura nce: Medica re A&B /Ag e/Sex: 1959/6 0/F [facility] No PCC Admit/ Reg Date: Orderi ng Dr: Elvia Martinez MD Locati on: PAT.EM / PCP: Pcp-No n Staff, Md Date of Servic e: Order (s): EKG Electr ocardi ogram CPT Code: 55117 Report Number : [id number] Reason for Exam: pre op Sinus rhythm , Regula r, HR 79 NORMAL AXIS AND INTERV ALS. 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 [address] [place], [place] [address] [phone] Patien t Name: NADIA MILLER Medica l Record #: [id number] Addres s: [address] [facility] Accoun t#: [id number] City/S mitchell/Z ip: [place] [address]: Kate zayas PAC Phone: Insura nce: Medica re A&B /Ag e/Sex: 1959/6 1/F [facility] No PCC Admit/ Reg Date: Orderi sudheer Dr: Kate zayas, PAC Locati on: [facility] EM/ PCP: PcpHugo Nguyen Md Date of Servic e: Order (s): XR hip pelvis BI min 3V CPT Code: 65764 Report Number : [id number] Reason for Exam: HIP PAIN [...] MARGUERITE; PCPNS* Kate zayas, PAC; Loreta Waldrop [facility] [address], [place], [address] 06/12/2022 14:34:30 06/08/20 22 06/06/2022 XR, hip, bilat eral No observ ation record ed. [facility] Atention: Jethro [address] [facility], [place], [address], 06/12/2022 14:34:55 Result Notes Documentation Provider Name and Address Organization Details Recorded Time Xr, Hip + Pelvis, Unilateral : [facility] [address] [place] [address] Patient Name: LAURA HICKMAN Medical Record#: [id number] Address: [address] [place] [address] City/State/Zip: [place] [address]: Kate Young PAC Insurance: Medicare A&B /Age/Sex: 1960/61/F [facility] No PCC Admit/Reg Date: 03/06/[address]: Kate Young, PAC Location: .CEM/ PCP: Pcp-Non StaffMd Date of Service: 03/07/22 Order (s): XR hip pelvis LT min 2V CPT Code: 59276 Report Number: [id number] Reason for Exam: HIP PAIN XR hip [...] MD 03/09/22 1029 TD/TT: 03/09/22 1021 Tech: [id number] cc: MARGUERITE; HELENA* Kate Young, PAC; Oracio Douglas, HELEN [address] [place] [address], [phone] 03/13/2022 16:45:35 Ct, Hip, W/o Contrast : [place] [address] Patient Name: LAURA HICKMAN Medical Record#: [id number] Address: [address] [place] [address] City/State/Zip: [place] [address]: Bindu Kennedy PAC Insurance: Medicare A&B /Age/Sex: 1960/61/F [facility] No PCC Admit/Reg Date: 05/14/[address]: Bindu Kennedy, PAC Location: DI.CTEM/ PCP: Pcp-Marie Nguyen Md Date of Service: 05/14/22 Order (s): CT johanna hip RT wo contrast CPT Code: 92579 Report Number: [id number] Reason for Exam: OSTEOARTHRITIS OF RIGHT HIP [...] Kauffman MD 05/15/22 1705 TD/TT: 05/15/221658 Tech: [id number] cc: GENTRY; CHECONS* Bindu Kennedy, PIERCE; Oracio Douglas PA [address] [place] [address], [phone] 05/16/2022 11:03:39 Xr, Hip, Unilateral, 1 View : [place] [id number] Patient Name: LAURA HICKMAN Medical Record#: [id number] Address: [address] [place] [address] City/State/Zip: [place] [address]: Geovany Martinez MD Insurance: Medicare A&B /Age/Sex: 1960/62/F [facility] No PCC Admit/Reg Date: 05/22/[address]: PIERCE Johnson Location: PACU.EM/PACU.EM-11 PCP: Mike Nguyen Md Date of Service: 05/22/22 Order (s): XR hip RT 1V CPT Code: 57988 Report Number: [id number] Reason for Exam: s/p R ANNETTE XR [...] PAC; Geovany Martinez MD; Oracio Douglas PA [address] [place] [address], [phone], [facility] 06/05/2022 16:33:25 Xr, Hip + Pelvis, Bilateral : [facility] at [address] [address] Patient Name: LAURA HICKMAN Medical Record#: [id number] Address: [address] [place] [address] City/State/Zip: [place] [address]: Kate Young PAC Insurance: Medicare A&B /Age/Sex: 1960/62/F [facility] No PCC Admit/Reg Date: 06/06/[address]: PIERCE Johnson Location: [facility]/ PCP: Mike StaffMd Date of Service: 06/06/22 Order (s): XR hip pelvis BI min 3V CPT Code: 59481 Report Number: [id number] Reason for Exam: HIP PAIN Pain Frontal [...] Joy MD 06/08/221655 TD/TT: 06/08/22 165 Tech: [id number] cc: MARGUERITE; HELENA* Kate Young, PAC; Oracio Douglas PA [address] [place], [phone], [facility] 06/12/2022 14:34:30 Procedures Surgical History Date Name Laterality Status Provider Name and Address Organization Details Recorded Time 2 TELEHEALTH VISIT completed Sophie Weathers MD [address] [facility], [place], [address], [facility] 04/03/2022 14:11:05 2 TELEHEALTH VISIT completed Patricia Amaro [facility] 03/06/2022 08:58:21 Imaging Results None recorded. Procedure [...] ICD10 Code Diagnosis IMO Codes Diagnosis Note [id number] HELEN JOHNSON SEM_HOSP ORTHOPEDI CS OUT PT [address] [facility] [place] [address] 02/15/2022 10:09:12 02/22/2022 15:55:47 Dehiscence of surgical wound [id number] T81.30XA Pleasant 61-year-ol d female presents regarding [...] of total replacement of left hip joint 0260066996 772601 Z96.642 [id number] Sophie Weathers MD SEM_CCPN [facility] [address] [facility] [address] 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 Pain of ri ght hip joint 7294325079 30359 M25.551 History of left hip replacement 1896942691 533232 Z96.642 Doing well status post I and D and head liner exchange with wound revision given postoperat parminder wound dehiscence . Most recent lab work reassuring . No issues with her incision. She is off antibiotic s. No reported fevers or chills or increasing pain. [id number] HELEN JOHNSON SEM_HOSP ORTHOPEDI CS OUT PT [address] [place] [address] 06/06/2022 10:23:14 06/07/2022 11:06:46 History of total replacement of right hip joint 4991767541 65122 Z96.641 Two weeks status post right anterior [...] recovery. Will follow-up in 6 weeks via [employer] [facility]. Health Concerns Section Related Observation LastModified by Organization Detai ls LastModified Time None Recorded Concern Status LastModified by Organization Details LastModified Time None Recorded Advance Directives Directive None Recorded Payers Insurance Date Sequence Insurance Name Policy Number Policy Gutiérrez Covered Member ID Gutiérrez Member ID Guarantor Name 07/22/2022 1 [place] [employer] Laura Hickman [id number] Laura Hickman 07/22/2022 2 [place] [facility] Laura Hickman [id number] Laura Hickman Notes Date Note Type Note [...] a left hip arthroplasty on 01/08/2022 in [place]. Since the surgery, she has been having [...] gauze with no drainage. Sophie Weathers MD [address] [place] [address], [phone], [facility] 03/06/2022 14:31:51 2 text/html ROS as [...] postop exam with x-rays. HELEN JOHNSON [address] [place], [address], [facility] 03/07/2022 13:10:01 2 text/html The patient acknowledges [...] rash, pruritus, diarrhea. Sophie Weathers MD [address] [place], [address], [facility] 04/03/2022 14:14:52 2 text/html This is a 61-year-old woman who is presenting today with right hip pain. She is known to Dr. Martinez status post left hip surgical wound I and D and head liner exchange for persistent drainage and wound dehiscence on 02/19/2022, original left total hip surgery on 01/08/22 in [place]. She reports that her left hip is [...] in right hip replacement surgery. HELEN ZHU [address] [place] [address], [phone], [facility] 05/09/2022 16:41:47 2 text/html Date of Procedure: [...] today for postop exam. HELEN JOHNSON [address] [place], [address], [facility] 06/06/2022 15:14:48 OBGyn Episode No OBEpisode recorded.
--- OUTSIDE RECORDS SUMMARY | 2025-07-26 16:49 | XMS_ITS | Encounter Summary ---
Author Organization [facility] Address [address] [place] [address] Care Team Providers Care Computational Linguist Name Role Phone Hosea Douglas Primary Care Provider [phone] Encounter Details Date Type Department Care Team ([facility] Contact Info) Description 07/01/2025 Results Follow-Up Adult Medicine [facility] [address] [place], [place] [phone] Jayme Kenyon MD [address] [place], [place] Social History Tobacco Use Types Packs/Day [...] care for your loved ones. For example, early childhood associate teacher or elderly care for an older adult? [...] PM EST Office Visit Orthopedic Surgery - [address] [phone] Kamar Smith DPM [address] [place] [phone] documented as of this encounter Visit Diagnoses Not on filedocumented in this encounter Care Teams Computational Linguist Relationship Specialty Start Date End Date Hosea Douglas PA [address] [place] [address] PCP - General Internal Medicine 02/01/21 documented as of this encounter
== END 2025-07-26 13:44 | disposition home or self-care (01) ==
LOC: HO.HOS 13:12
PROVIDERS: PCP Physician Assistant Medical; Visit Provider Orthopaedic Surgery
DX: M25.561 Pain in right knee (principal)
CPT/HCPCS: 99024

== ENCOUNTER → 2025-07-26 13:11 | Outpatient (BNVA) | payer MEDICARE, MEDICAID, SELFPAY | PROVIDERS: PCP Physician Assistant Medical; Visit Provider Orthopaedic Surgery | DX: Z48.01 Encounter for change or removal of surgical wound dressing (principal); M25.561 Pain in right knee; Z96.651 Presence of right artificial knee joint | CPT/HCPCS: 99212 ==

== ENCOUNTER 2025-08-05 08:27 | Outpatient (REF) | payer MEDICARE, MEDICAID, SELFPAY ==
--- NOTE | ~2025-08-05 | XR_ITS ---
EXAMINATION: XR KNEE, RIGHT CLINICAL INFORMATION: M25.569 - Pain in unspecified knee COMPARISON: Previous x-ray June 2025 TECHNIQUE: Standing AP view of both knees and lateral and sunrise views of the right knee. FINDINGS: Right: 3 component knee replacement in satisfactory position. No fracture or dislocation. Moderate joint effusion. Soft tissue swelling and anterior skin annika. Standing AP view of the left knee demonstrates a left knee replacement in satisfactory position.. XR/XR knee RT 3V IMPRESSION: Satisfactory appearance of right knee replacement. Moderate joint effusion and soft tissue swelling. Electronically signed by: Laurel Haley MD 08/05/2025 02:29 PM [facility]
--- OUTSIDE RECORDS SUMMARY | 2025-08-06 08:59 | XMS_ITS | Encounter Summary ---
Author Organization [facility] Address [address] [place] [address] Care Team Providers Care Dredge Mate Name Role Phone Hosea Douglas Primary Care Provider [phone] Encounter Details Date Type Department Care Team ([facility] Contact Info) Description 07/01/2025 Results Follow-Up Adult Medicine [facility] [address] [place], [place] [phone] Jayme Kenyon MD [address] [place], [place] Social History Tobacco Use Types Packs/Day [...] care for your loved ones. For example, children counselor or elderly care for an older [...] on filedocumented in this encounter Care Teams Dredge Mate Relationship Specialty Start Date End Date Hosea Douglas PA [address] [place] [address] PCP - General Internal Medicine 02/01/21 documented as of this encounter
--- OUTSIDE RECORDS SUMMARY | 2025-08-06 08:59 | XMS_ITS | Clinical Summary ---
Author Organization [facility] [address] [place] [address] Address [address], [place] Phone Care Team Providers Care Hole Puncher Strap Name Role Phone Hosea Douglas Primary Care Provider [phone] Allergies Active Allergy Reactions Criticality Noted Date [...] to left hip joint prosthesis (CMS/[facility] V 24) 02/07/2023 Primary osteoarthritis of [...] rpt colonoscopy in 3 years Atrial flutter ([facility] V24, [facility] V28) 2013 Overview (08/19/2024): Atrial flutter ablation [...] with Ansley Lobo PVD (peripheral vascular disease) ([facility] V24) 02/24/2013 COPD (chronic obstructive pu lmonary disease) ([facility] V24, [facility] V28) 10/28/2012 Insomnia 10/28/2012 Abdominal pain 07/24/2012 Knee pain 01/30/2010 Patella, chondromalacia 01/30/2010 Low back pain 01/13/2010 Radiculitis, lumbosacral 01/13/2010 Lumbar spondylosis 01/07/2010 Migraine 12/12/2007 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): Had open heart surgery Encounters Date Type Department Care Team Description 07/13/2025 Telephone Adult Medicine [address] [phone] Erasmo Jackson LPN 07/01/2025 Results Follow-Up Adult Medicine [address] [phone] Jayme Kenyon MD 06/30/2025 10:00 AM EDT Consult Adult Medicine [address] [phone] Jayme Kenyon MD Preop examination (Primary Dx); Paroxysmal atrial fibrillation (CMS/HCC V24, CMS/HCC V28); Chronic obstructive pulmonary disease with acute exacerbation (CMS/HCC V24, CMS/HCC V28); Screening for diabetes mellitus (DM); Tobacco dependency 06/22/2025 Telephone Adult Medicine [address] [phone] Hosea Douglas, PA 06/12/2025 Telephone Adult Medicine [address] [phone] Hosea Douglas PA 06/03/2025 1:30 PM EDT Office Visit Orthopedic Surgery [address] [phone] Kamar Smith DPM PVD (peripheral vascular disease) ([facility] V24) (Primary Dx); Pain in toes [...] PROCEDURE: HISTORICAL TONSILLECTOMY OTHER SURGICAL HISTORY PROCEDURE: MS LIG/TRNSXJ FLP TUBE ABDL/VAG APPR UNI/BI OTHER SURGICAL HISTORY 08/2014 PROCEDURE: MS UNLISTED PROCEDURE SPINE; COMMENT: L4- L5 lumbar fusion COLONOSCOPY 04/17/2016 PROCEDURE: HISTORICAL COLONOSCOPY; COMMENT: 10 mm sigmoid colon polyp: Tubulovillous adenoma. OTHER SURGICAL HISTORY 03/2018 PROCEDURE: MS RMVL TOT DISC ARTHRP ANT 1 INTERSPACE CERVICAL; COMMENT: cer disckectomy C5- C7 OTHER SURGICAL HISTORY 01/08/2022 PROCEDURE: MS ANESTHESIA OPEN TOTAL HIP ARTHROPLASTY; COMMENT: dr. angel, done in [place] OTHER SURGICAL HISTORY 05/22/2022 Right PROCEDURE: MS ANESTHESIA OPEN TOTAL HIP ARTHROPLASTY; COMMENT: [facility] [...] s COPD (chronic obstructive pu lmonary disease) ([facility] V24, [facility] V28) 10/28/2012 DX:COPD (chronic o bstructive pulmonary disease) ([facility]) Insomnia 10/28/2012 DX:Insomnia PVD (peripheral vascular dis ease) ([facility] V24) 02/24/2013 DX:PVD (peripheral vascular disease) ([facility]) Major depression 02/24/2013 DX:Major depres jon Borderline abnormal TFTs 02/24/2013 DX:Bord jaime abnormal TFTs Need for hepatitis C screening test 02/24/2013 DX:Need for hepatitis C screening test Historical Medical DX 01/07/2010 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 For example, child life therapist or elderly care for an older [...] K/mcL LAB HEMETOLOGY [facility] RBC 4.90(H) 3.80 - 4.80 M/mcL LAB HEMETOLOGY METHOD 06/30/2025 2:[facility] Hemoglobin 14.1 11.5 - 16.0 g/dL LAB HEMETOLOGY METHOD 06/30/2025 2:09 [facility] Hematocrit 43.2 35.0 - 47.0 % LAB HEMETOLOGY METHOD 06/30/2025 2:09 [facility] MCV 89.1 79.0 - 98.0 FL LAB HEMETOLOGY METHOD 06/30/2025 2:09 [facility] MCH 29.1 27.0 - 32.0 pcg LAB HEMETOLOGY METHOD 06/30/2025 2:09 [facility] MCHC 32.6 32.0 - 37.0 g/dL LAB HEMETOLOGY METHOD 06/30/2025 2:09 PM [facility] RDW 14.1 11.0 - 15.0 % LAB HEMETOLOGY METHOD 06/30/2025 2:09 PM [facility] Platelets 280 130 - 400 K/mcL LAB HEMETOLOGY METHOD 06/30/2025 2:09 PM [facility] MPV 10.6 7.0 - 11.0 FL LAB HEMETOLOGY METHOD 06/30/2025 2:09 PM [facility] NRBC 0.0 <1.0 % LAB HEMETOLOGY METHOD 06/30/2025 2:09 PM [facility] NRBC Absolute 0.00 <0.10 K/mcL LAB HEMETOLOGY METHOD 06/30/2025 2:09 PM [facility] Neutrophils Relative 52.2 % LAB HEMETOLOGY METHOD 06/30/2025 2:09 PM [facility] Lymphocytes Relative 35.8 % LAB HEMETOLOGY METHOD 06/30/2025 2:09 PM [facility] Monocytes Relative 9.7 % LAB HEMETOLOGY METHOD 06/30/2025 2:09 PM [facility] Eosinophils Relative 1.3 % LAB HEMETOLOGY METHOD 06/30/2025 2:09 PM [facility] Basophils Relative 0.8 % LAB HEMETOLOGY METHOD 06/30/2025 2:09 PM [facility] Immature Granulocytes Relative 0.2 % LAB HEMETOLOGY METHOD 06/30/2025 2:09 PM [facility] Neutrophils Absolute 4.64 1.50 - 7.00 K/mcL LAB HEMETOLOGY METHOD 06/30/2025 2:09 PM [facility] Lymphocytes Absolute 3.19 1.00 - 5.00 K/mcL LAB HEMETOLOGY METHOD 06/30/2025 2:09 PM [facility] Monocytes Absolute 0.86 0.20 - 1.00 K/mcL LAB HEMETOLOGY METHOD 06/30/2025 2:09 PM [facility] Eosinophils Absolute 0.12 0.00 - 0.50 K/mcL LAB HEMETOLOGY METHOD 06/30/2025 2:09 PM EDT [facility] Basophils Absolute 0.07 0.00 - 0.20 K/[facility] LAB HEMETOLOGY METHOD 06/30/2025 2:09 PM EDT [facility] Immature Granulocytes Absolute 0.02 0.00 - 0.03 K/[facility] LAB HEMETOLOGY METHOD 06/30/2025 2:09 PM EDT [facility] Blood Venous blood specimen / Unknown Venipuncture / Unknown 06/30/2025 12:55 PM EDT 06/30/2025 12:55 PM EDT us Jayme Kenyon MD LAB BLOOD ORDERABLES F inal Result Performing Organization Address [facility]/ZIP Co de Phone Number [facility] [address] [place] [address], [place] [phone] * Hemoglobin A1c (06/30/2025 12:55 PM EDT) [...] [facility] [address] [place] [address], [place] [phone] * Comprehensive metabolic panel (06/30/2025 12:55 PM EDT) Sodium 137 133 - 145 mmol/L LAB CHEMISTRY METHOD [facility]/30[facility]2025 5[facility] Potassium 4.2 3.5 - 5.5 mmol/L LAB CHEMISTRY METHOD 06/30/2025 5:45 PM [facility] Chloride 105 96 - 110 mmol/L LAB CHEMISTRY METHOD 06/30/2025 5:45 PM [facility] CO2 28 21 - 32 mmol/L LAB CHEMISTRY METHOD 06/30/2025 5:45 PM [facility] Anion Gap 4 3 - 11 LAB CHEMISTRY METHOD 06/30/2025 5:45 PM [facility] Glucose 79 70 - 100 mg/dL LAB CHEMISTRY METHOD 06/30/2025 5:45 PM [facility] BUN 10 5 - 25 mg/dL LAB CHEMISTRY METHOD 06/30/2025 5:45 PM [facility] Creatinine 1.00 0.50 - 1.10 mg/dL LAB CHEMISTRY METHOD 06/30/2025 5:45 PM [facility] eGFR 63 >=60 mL/min/1. 73m2 LAB CHEMISTRY METHOD 06/30/2025 5:45 PM [facility] Comment:Calculation based on the Chronic Kidney Disease Epidemiology Collaboration (CKD-EPI) equation refit without adjustment for race. BUN/Creatinine Ratio 10.0 LAB CHEMISTRY METHOD 06/30/2025 5:45 PM [facility] Calcium 9.2 8.5 - 10.5 mg/dL LAB CHEMISTRY METHOD 06/30/2025 5:45 PM [facility] AST (SGOT) 31 10 - 42 unit/L LAB CHEMISTRY METHOD 06/30/2025 5:45 PM [facility] ALT (SGPT) 41 10 - 60 unit/L LAB CHEMISTRY METHOD 06/30/2025 5:45 PM [facility] Alkaline Phosphatase 121 42 - 121 unit/L LAB CHEMISTRY METHOD 06/30/2025 5:45 PM [facility] Total Protein 7.0 6.0 [...] [facility] [address] [place] [address], * CT Lung Screening (02/18/2025 1:43 PM [...] Signed Date: 02/19/2025 05:47 ET Workstation ID: [id number] Transcribed By: Self Edit Transcribed Date: 02/19/2025 [...] Signed Date: 02/19/2025 05:47 ET Workstation ID: [id number] Transcribed By: Self Edit Transcribed Date: 02/19/2025 [...] [facility] [address] [place] [address], [place] [phone] * Depression Screening (11/25/2023) Depression Screening abstracted [...] esult * Cervical Cancer Screening: HPV (07/05/2022) [facility] Cervical Cancer Screening: HPV abstracted, negative [facility] Provider HEALTH MAINTENANCE Final Result * Colonoscopy (02/03/2021) [facility] Colonoscopy abstracted, no interpretation Anatomical Region Laterality Modality Other [facility] Provider HEALTH MAINTENANCE Final Result * Hepatitis C Screening (06/05/2013) [facility] Hepatitis C Screening abstracted [facility] Provider HEALTH MAINTENANCE Final Result from Last 3 Months or Most Recently Relevant to Health Maintenance Insurance MEDICARE [place] [employer] Care Teams Hole Puncher Strap Relationship Specialty Start Date End Date Hosea Douglas PA [address] [place] [address] PCP - General Internal Medicine 02/01/21
--- OUTSIDE RECORDS SUMMARY | 2025-08-06 08:59 | XMS_ITS | Clinical Summary ---
Author Organization [facility] Address [address] [place] [address] Care Team Providers Care Assistant To The Dean Name Role Phone Hosea Douglas PA-C Primary [...] age to complete this topic Care Teams Assistant To The Dean Relationship Specialty Start Date End Date Hosea Douglas PA-C PCP - General Medical Services 12/11/21
== END 2025-08-05 08:28 | disposition home or self-care (01) ==
LOC: HO.HOSX 08:27
PROVIDERS: Visit Provider Physician Assistant
DX: M25.561 Pain in right knee (principal); Z96.651 Presence of right artificial knee joint
CPT/HCPCS: 73562; 99212

== ENCOUNTER 2025-08-05 14:03 | Outpatient (AMB) | payer MEDICARE, MEDICAID, SELFPAY ==
--- NOTE | 2025-08-05 14:17 | A.OFFVIS_ITS ---
Vital Signs 08/05/25 14:25 Height 5 ft 3 in Weight 180 lb BMI 31.9 Intake Visit Reasons: 2WKPO: R TKA w/ 07/19/25 Intake Note: Laura is a 65 year old female who presents today for a post operative appointment status post right total knee arthroplasty done on 07/19/[address] Calero. Patient reports she is very sore in her knee. Allergies pravastatin Allergy (Mild, Verified 08/05/25 14:24) rash HPI HPI 2WKPO: R TKA w/ 07/19/25: Details: Ms. Hickman this is a 65-year-old female who presents to the office today for routine follow-up status post right total knee arthroplasty performed on 07/19/[address] Calero. Patient reports overall she is doing well. She reports that she continues to have some pain and difficulty with range of motion. She is performing home exercise program but notices that she does have difficulty with stiffening after the exercises are performed. [facility] Medical History Depression Asthma Migraines PVD (peripheral vascular disease) Elevated cholesterol COPD (chronic obstructive pulmonary disease) HTN (hypertension) Arthritis GERD (gastroesophageal reflux disease) Paroxysmal atrial flutter Status post placement of implantable loop recorder WPW (Xjzsh-Ihlxnnhac-Ecqcv syndrome) Surgical History Status post total left knee replacement (~03/15/25) History of hip surgery Hx of cholecystectomy History of cardiac radiofrequency ablation H/O colonoscopy History of hip surgery History of hip surgery History of back surgery Hx of neck surgery Family History Father HTN (hypertension) Mother HTN (hypertension) Social History Housing Other:: mobile home Are you a primary senior care specialist to a significant other at home: No Do you presently have visiting nurse or other home services: Yes ([employer]) Patient Tobacco Use Status: Current everyday Tobacco user Tobacco use type: Cigarette Cigarettes Per Day: 5 Years Smoked: 50 Advance Directives Date on File: 03/17/25 service: No Current occupational status: disabled Current occupation: Right hand dominate Review of Systems Const All systems reviewed & are unremarkable except as noted in HPI and below Physical Exam Vital Signs: BMI result Body Mass Index 31.9 Const General: cooperative, healthy appearing and no acute distress Resp Effort & Inspection: normal respiratory effort and able to speak in complete sentences Extrem Other: Right knee incision site is clean dry and intact. Sunol intact. No surrounding erythema or drainage. No signs of infection. Range of motion is 0- 90 degrees. His calf is supple and nontender. NVI. Psych Appearance: grossly normal Mental Status: mental status grossly normal Attitude: cooperative Assessment & Plan Assessment & Plan (1) Status post total right knee replacement: Code(s): Z96.651 - Presence of right artificial knee joint Category: Surgical Plan Ms. Hickman this is a 65-year-old female who presents to the office today for r outine follow-up status post right total knee arthroplasty performed on 07/19/[address] Calero. Patient reports overall she is doing well. She reports that she continues to have some pain and difficulty with range of motion. She is performing home exercise program but notices that she does have difficulty with stiffening after the exercises are performed. While the office today, annika were removed and Steri-Strips were applied. She was encouraged to continue with physical therapy. I did provide the patient with a physical therapy prescription in which she would like to attend AT in [facility]. I gave the patient instructed to bring this physical therapy prescription with her at her 1st visit and to call to make an appointment as soon as possible. She will continue to take her anticoagulant for a total of 6 weeks postoperatively. She will follow up with Dr. Calero in 4 weeks, sooner if needed. X-rays of the right knee which were obtained while in the office today and were reviewed by me, Nadia Mcconnell PA-C, revealed intact right total knee arthroplasty with satisfactory alignment. Orders: Orders XR knee RT 3V Today M25.569 - Pain in unspecified knee PT Evaluation and Treatment Today Z96.651 - Presence of right artificial knee joint Medications: Refilled oxycodone Partial Fill upon patient request. Take 1-2 tabs every 4 hours as needed for pain 10 mg (2 x 5 mg) PO Q4H PRN 40 tabs 0RF pain Coding Level of Care Code Global (59675) Diagnoses Status post total right knee replacement Z96.651
[2025-08-05 14:25] VITALS: BMI 31.9
--- OUTSIDE RECORDS SUMMARY | 2025-08-05 17:16 | XMS_ITS | Clinical Summary ---
Author Organization [facility] Address [address] [place] [address] Care Team Providers Care Budget Manager Name Role Phone Hosea Douglas PA-C Primary [...] age to complete this topic Care Teams Budget Manager Relationship Specialty Start Date End Date Hosea Douglas PA-C PCP - General Medical Services 12/11/21
--- OUTSIDE RECORDS SUMMARY | 2025-08-05 17:16 | XMS_ITS | Data Portability ---
Author Organization [place] [facility] Address [address] [place] [id number] Care Team Providers Care Shoe Ironer Name Role Phone TANYA MA Primary Care [...] (A+B) 2018 019 [facility], [address] [place] [address] [place], [address], 9 19:27:45 Referral None recorded. Procedures None recorded. Surgeries None recorded. Imaging XR, chest, 2 view - [facility] 2018 [facility], [address] , [place], [address], 9 05:36:28 Medication Orders ipratropi um 0.5 mg-albute rol 3 mg (2.5 mg base)/3 mL nebulizat ion soln [address] [facility][id number], [address] [place], [address], 9 21:03:08 doxycycli ne hyclate 100 mg capsule 2018 019 [facility] #[id number], [address] [place], [address], 9 21:03:10 prednison e 20 mg tablet 2018 019 [facility]acy #[id number], [address] [place], [address], 9 21:03:10 prednison e 10 mg tablet [address] [facility] #[id number], [address] [place], [address], 9 21:03:08 doxycycli ne hyclate 100 mg capsule [address] [facility] #[id number], [address] [place] [address], [address], 9 21:03:08 Patient TargetsNo targets recorded. Patient Instructions Encounter Date Encounter Id Patient Instructions Last Modified By Organization Details Last Modified Time 08/11/2019 [id number] Viral Illness Discharge Instructions BASIC INFORMATION A [...] in your condition between 8am-10pm, please call [facility] at [phone] to help navigate your care. chito Not available 08/11/2019 19:28:10 08/15/2019 [id number] [facility] you [facility] yo ur [facility]. We cannot always find the exact [...] in your condition between 8am-10pm, please call [facility] at [phone] to help navigate your care. beatrice Not available 08/15/2019 21:03:05 Reason for Referral None Reported. Results Created Date Observation Date Name Description Value Unit Range Abnormal Flag Note LastModifiedBy Organization Detail LastModifiedTime 08/11/20 19 08/11/2019 rapid flu (A+B) Flu A negati ve Not Available [facility] [address] [place], [address], 08/11/2019 19:18:15 08/11/20 19 08/11/2019 rapid flu (A+B) Flu B negati ve Not Available [facility] [address] [place], [address], 08/11/2019 19:18:15 08/11/20 19 08/11/2019 rapid flu (A+B) Control Visual ized / Valid Not Available [facility] [address] [place], [address], 08/11/2019 19:18:15 Result Notes None recorded. Problems Name Problem SNOMED Code Status Onset Date Resolution Date Notes Provider Name and Address Organization Details Recorded Time Chronic obstructive pulmonary disease 55419584 Active 2018 OCTAVIO ROOT NP [address] [place], [address], [place] [facility] 9 21:03:35 Problem Notes None recorded. Procedures Surgical History Date Name Laterality Status Provider Name and Address Organization Details Recorded Time 9 Nebulizer treatment - DH completed OCTAVIO ROOT NP [address] [place], [address], [place] [facility] 08/15/2019 21:55:13 Imaging Results [...] % 98.4 [degF] 106/58 mm[Hg] Not Available [facility] 9 19:02:55 Date Recorded Oxygen saturation Oxygen saturation in Arterial blood by Pulse oximetry Heart rate Body temperature Respiratory rate Systolic And Diastolic Provider Name and Address Organization Details Last Updated DateTime 9 94 % 94 % 78 /min 98.4 [degF] 20 /min 118/76 mm[Hg] Not Available [facility] 9 20:54:14 Social History Question Answer Notes LastModified by Organizat ion Details LastModified Time Tobacco Smoking Status Current Every Day Smoker HELEN BENSON [address] [place], [address], [place] [facility] 08/11/2019 19:06:46 Do You [...] Artery Disease N Cancer N Stroke N Asthma N COPD Y Depression Y High Cholesterol N Pulmonary Embolism N Hypertension N Kidney Disease N Gynecological HistoryNo gynecological history recorded. Obstetrics History GPAL:G 0 P 0 0 0 0 Past Encounters Encounter ID Performer Location Encounter Start Date Encounter Closed Date Diagnosis/Indication Diagnosis SNOMED-CT Code Diagnosis ICD10 Code Diagnosis IMO Codes Diagnosis Note [id number] HELEN BENSON [facility] [address] [place] [address] 08/11/2019 18:51:44 08/11/2019 20:54:03 Viral respiratory infection 903737133 J06.9 [id number] OCTAVIO ROOT NP [facility] [address] [place] [place] [address] 08/15/2019 20:50:34 08/15/2019 22:02:14 Community acquired pneumonia 395665808 J18.9 Health Concerns Section Related Observation LastModified by Organization Detai ls LastModified Time None Recorded Concern Status LastModified by Organization Details LastModified Time None Recorded Advance Directives Directive N: Payers Insurance Date Sequence Insurance Name Policy Number Policy Gutiérrez Covered Member ID Gutiérrez Member ID Guarantor Name 08/11/2019 1 *SELF PAY* Laura Marylou [id number] Laura Maryluo 08/13/2019 1 [place] [employer] Laura M Marylou [id number] Laura Marylou 08/11/2019 2 [place] [facility] Laura Marylou [id number] Laura Marylou Notes Date Note Type Note [...] sinus congestion. HELEN BENSON [address], [place], [address], [place] [facility] 08/11/2019 20:54:01 08/15/2019 text/html [...] running. OCTAVIO ROOT NP [address], [place], [address], [place] [facility] 08/15/2019 22:02:12 OBGyn Episode No OBEpisode recorded.
--- OUTSIDE RECORDS SUMMARY | 2025-08-05 17:17 | XMS_ITS | Clinical Summary ---
Author Organization [facility] [address] [place] [address] Address [address], [place] Phone Care Team Providers Care Retirement Benefits Specialist Name Role Phone Hosea Douglas Primary Care Provider [phone] Allergies Active Allergy Reactions Criticality Noted Date [...] mg by mouth daily. 09/04/20 17 Active acyclovir (ZOVIRAX) 400 mg tablet Take [...] time each day. 30 each 12/16/19 25 026 Active ipratropium (ATROVENT) 42 mcg (0.06 %) [...] 25 Active nicotine (NICODERM CQ) 21 mg/[address]: Tobacco dependency Place 1 patch on the skin 1 (one) time each day at the same time. 30 each 3 06/30/20 25 Active celecoxib (CeleBREX) 200 mg capsule TAKE 1 CAPSULE BY MOUTH ONCE DAILY 30 capsule 5 07/20/20 25 Active Oyster Shell Calcium-Vit D3 500 mg-5 mcg (200 unit) per tablet TAKE 1 TABLET BY MOUTH ONCE DAILY 90 tablet 1 07/27/20 25 Active apixaban (Eliquis) 5 mg tablet TAKE 1 TABLET BY MOUTH two (2) times a day 60 tablet 5 11/04/20 25 Active Oysco 500/D 500 mg-5 mcg (200 unit) per tablet TAKE 1 TABLET BY MOUTH ONCE DAILY 90 tablet 1 10/01/19 025 Discontinued celecoxib (CeleBREX) 200 mg capsule TAKE 1 CAPSULE BY MOUTH ONCE DAILY 30 capsule 5 12/19/19 25 025 Discontinued apixaban (Eliquis) 5 mg tablet TAKE 1 TABLET BY MOUTH two (2) times a day 180 tablet 12/19/19 025 Discontinued Active Problems Problem Noted Date Diagnosed Date Gait instability 02/07/2023 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, sequela 02/07/2023 Pain due to left hip joint prosthesis (CMS/[facility] V 24) 02/07/2023 Primary osteoarthritis of left [...] rpt colonoscopy in 3 years Atrial flutter ([facility] V24, [facility] V28) 2013 Overview (08/19/2024): Atrial flutter ablation [...] with Ansley Lobo PVD (peripheral vascular disease) ([facility] V24) 02/24/2013 COPD (chronic obstructive pu lmonary disease) ([facility] V24, [facility] V28) 10/28/2012 Insomnia 10/28/2012 Abdominal pain 07/24/2012 Knee pain 01/30/2010 Patella, chondromalacia 01/30/2010 Low back pain 01/13/2010 Radiculitis, lumbosacral 01/13/2010 Lumbar spondylosis 01/07/2010 Migraine 12/12/2007 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): Had open heart surgery Encounters Date Type Department Care Team Description 07/13/2025 Telephone Adult Medicine [address] [phone] Erasmo Jackson LPN 07/01/2025 Results Follow-Up Adult Medicine [address] [phone] Jayme Kenyon MD 06/30/2025 10:00 AM EDT Consult Adult Medicine [address] [phone] Jayme Kenyon MD Preop examination (Primary Dx); Paroxysmal atrial fibrillation (CMS/HCC V24, CMS/HCC V28); Chronic obstructive pulmonary disease with acute exacerbation (CMS/HCC V24, CMS/HCC V28); Screening for diabetes mellitus (DM); Tobacco dependency 06/22/2025 Telephone Adult Medicine [address] [phone] Hosea Douglas, PA 06/12/2025 Telephone Adult Medicine [address] [phone] Hosea Douglas PA 06/03/2025 1:30 PM EDT Office Visit Orthopedic Surgery [address] [phone] Kmaar Smith DPM PVD (peripheral vascular disease) ([facility] V24) (Primary Dx); Pain in toes of [...] PROCEDURE: HISTORICAL TONSILLECTOMY OTHER SURGICAL HISTORY PROCEDURE: DC LIG/TRNSXJ FLP TUBE ABDL/VAG APPR UNI/BI OTHER SURGICAL HISTORY 08/2014 PROCEDURE: DC UNLISTED PROCEDURE SPINE; COMMENT: L4- L5 lumbar fusion COLONOSCOPY 04/17/2016 PROCEDURE: HISTORICAL COLONOSCOPY; COMMENT: 10 mm sigmoid colon polyp: Tubulovillous adenoma. OTHER SURGICAL HISTORY 03/2018 PROCEDURE: DC RMVL TOT DISC ARTHRP ANT 1 INTERSPACE CERVICAL; COMMENT: cer disckectomy C5- C7 OTHER SURGICAL HISTORY 01/08/2022 PROCEDURE: DC ANESTHESIA OPEN TOTAL HIP ARTHROPLASTY; COMMENT: dr. angel, done in [place] OTHER SURGICAL HISTORY 05/22/2022 Right PROCEDURE: DC ANESTHESIA OPEN TOTAL HIP ARTHROPLASTY; COMMENT: [facility] [...] s COPD (chronic obstructive pu lmonary disease) ([facility] V24, [facility] V28) 10/28/2012 DX:COPD (chronic o bstructive pulmonary disease) ([facility]) Insomnia 10/28/2012 DX:Insomnia PVD (peripheral vascular dis ease) ([facility] V24) 02/24/2013 DX:PVD (peripheral vascular disease) ([facility]) Major depression 02/24/2013 DX:Major depres jon Borderline abnormal TFTs 02/24/2013 DX:Bord jaime abnormal TFTs Need for hepatitis C screening test 02/24/2013 DX:Need for hepatitis C screening test Historical Medical DX 01/07/2010 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 For example, early childhood lead teacher or elderly care for an older [...] 06/30/2025 12:09 PM EDT Plan of Treatment Health Maintenance Due Date Last Done Comments RSV Immunization Adult Patients (1 - Risk 50-74 years 1-dose series) 2011 Zoster Vaccines (1 of 2) 2011 HIV Screening 09/08/2022 Medicare Annual Wellness Visit 09/08/2022 Depression Screening 09/30/2024 11/25/2023 COVID-19 Vaccine ( season) 2025 02/21/2022, 04/21/2021, 04/06/2021, Additional history exists Influenza Vaccine (#1) 2025 3, 07/02/2022, 09/14/2021, Additional history exists Breast Cancer [...] Date/Time Associated Diagnosis Comments EXTERNAL XRAY REPORT 07/23/2025 EXTERNAL XRAY REPORT 07/23/2025 EXTERNAL XRAY REPORT 07/20/2025 EXTERNAL XRAY REPORT [...] Health Maintenance Results * External Xray Report (07/23/2025) Only the most recent of6 resultswithin the time period is included. Anatomical Region Laterality Modality Radiographic Chiara ging us Provider [facility] IMG XR PROCEDURES Final Result * ECG 12 lead (07/01/2025 8:01 AM EDT) Only the most recent of2 resultswithin the time period is included. us Historical Provider ECG ORDERABLES Final Res ult * (ABNORMAL) CBC auto differential (06/30/2025 12:55 PM EDT) WBC 8.9 4.8 - 10.8 K/mcL LAB HEMETOLOGY METHOD 06/30/2025 2:09 PM [facility] RBC 4.90(H) 3.80 - 4.80 M/mcL LAB HEMETOLOGY METHOD 06/30/2025 2:09 PM [facility] Hemoglobin 14.1 11.5 - 16.0 g/dL LAB HEMETOLOGY METHOD 06/30/2025 2:09 PM [facility] Hematocrit 43.2 35.0 - 47.0 % LAB HEMETOLOGY METHOD 06/30/2025 2:09 PM [facility] MCV 89.1 79.0 - 98.0 FL LAB HEMETOLOGY METHOD 06/30/2025 2:09 PM [facility] MCH 29.1 27.0 - 32.0 pcg LAB HEMETOLOGY METHOD 06/30/2025 2:09 PM [facility] MCHC 32.6 32.0 - 37.0 g/dL LAB HEMETOLOGY METHOD 06/30/2025 2:09 PM [facility] RDW 14.1 11.0 - 15.0 % LAB HEMETOLOGY METHOD 06/30/2025 2:09 PM [facility] Platelets 280 130 - 400 K/mcL LAB HEMETOLOGY METHOD 06/30/2025 2:09 PM [facility] MPV 10.6 7.0 - 11.0 FL LAB HEMETOLOGY METHOD 06/30/2025 2:09 PM [facility] NRBC 0.0 <1.0 % LAB HEMETOLOGY METHOD 06/30/2025 2:09 PM [facility] NRBC Absolute 0.00 <0.10 K/mcL LAB HEMETOLOGY METHOD 06/30/2025 2:09 PM [facility] Neutrophils Relative 52.2 % LAB HEMETOLOGY METHOD 06/30/2025 2:09 PM [facility] Lymphocytes Relative 35.8 % LAB HEMETOLOGY METHOD 06/30/2025 2:09 PM [facility] Monocytes Relative 9.7 % LAB HEMETOLOGY METHOD 06/30/2025 2:09 PM [facility] Eosinophils Relative 1.3 % LAB HEMETOLOGY METHOD 06/30/2025 2:09 PM [facility] Basophils Relative 0.8 % LAB HEMETOLOGY METHOD 06/30/2025 2:09 PM [facility] Immature Granulocytes Relative 0.2 % LAB HEMETOLOGY METHOD 06/30/2025 2:09 PM [facility] Neutrophils Absolute 4.64 1.50 - 7.00 K/mcL LAB HEMETOLOGY METHOD 06/30/2025 2:09 PM [facility] Lymphocytes Absolute 3.19 1.00 - 5.00 K/mcL LAB HEMETOLOGY METHOD 06/30/2025 2:09 PM [facility] Monocytes Absolute 0.86 0.20 - 1.00 K/mcL LAB HEMETOLOGY METHOD 06/30/2025 2:09 PM [facility] Eosinophils Absolute 0.12 0.00 - 0.50 K/mcL LAB HEMETOLOGY METHOD 06/30/2025 2:09 PM EDT [facility] Basophils Absolute 0.07 0.00 - 0.20 K/[facility] LAB HEMETOLOGY METHOD 06/30/2025 2:09 PM EDT [facility] Immature Granulocytes Absolute 0.02 0.00 - 0.03 K/[facility] LAB HEMETOLOGY METHOD 06/30/2025 2:09 PM EDT [facility] Blood Venous blood specimen / Unknown Venipuncture / Unknown 06/30/2025 12:55 PM EDT 06/30/2025 12:55 PM EDT us Jayme Kenyon MD LAB BLOOD ORDERABLES F inal Result Performing Organization Address [facility]/ZIP Co de Phone Number [facility] [address] [place] [address], [place] [phone] * Hemoglobin A1c (06/30/2025 12:55 PM EDT) Hemoglobin A1C 5.3 <6.5 % LAB CHEMISTRY METHOD 06/30/2025 10:08 PM EDT [facility] Mean Bld Glu Estim. 105 mg/dL LAB CHEMISTRY METHOD 06/30/2025 10:08 PM EDT [facility] Blood Venous blood specimen / Unknown Venipuncture / Unknown 06/30/2025 12:55 PM EDT 06/30/2025 12:55 PM EDT us Jayme Kenyon MD LAB BLOOD ORDERABLES F inal Result [facility] [address] [place] [address], [place] [phone] * Comprehensive metabolic panel (06/30/2025 12:55 PM EDT) Sodium 137 133 - 145 mmol/L LAB CHEMISTRY METHOD 06/30/2025 5:45 PM [facility] Potassium 4.2 3.5 - 5.5 mmol/L LAB CHEMISTRY METHOD 06/30/2025 5:45 PM [facility] Chloride 105 96 - 110 mmol/L LAB CHEMISTRY METHOD 06/30/2025 5:45 PM [facility] CO2 28 21 - 32 mmol/L LAB CHEMISTRY METHOD 06/30/2025 5:45 PM [facility] Anion Gap 4 3 - 11 LAB CHEMISTRY METHOD 06/30/2025 5:45 PM [facility] Glucose 79 70 - 100 mg/dL LAB CHEMISTRY METHOD 06/30/2025 5:45 PM [facility] BUN 10 5 - 25 mg/dL LAB CHEMISTRY METHOD 06/30/2025 5:45 PM [facility] Creatinine 1.00 0.50 - 1.10 mg/dL LAB CHEMISTRY METHOD 06/30/2025 5:45 PM [facility] eGFR 63 >=60 mL/min/1. 73m2 LAB CHEMISTRY METHOD 06/30/2025 5:45 PM [facility] Comment:Calculation based on the Chronic Kidney Disease Epidemiology Collaboration (CKD-EPI) equation refit without adjustment for race. BUN/Creatinine Ratio 10.0 LAB CHEMISTRY METHOD 06/30/2025 5:45 PM [facility] Calcium 9.2 8.5 - 10.5 mg/dL LAB CHEMISTRY METHOD 06/30/2025 5:45 PM [facility] AST (SGOT) 31 10 - 42 unit/L LAB CHEMISTRY METHOD 06/30/2025 5:45 PM [facility] ALT (SGPT) 41 10 - 60 unit/L LAB CHEMISTRY METHOD 06/30/2025 5:45 PM [facility] Alkaline Phosphatase 121 42 - 121 unit/L LAB CHEMISTRY METHOD 06/30/2025 5:45 PM [facility] Total Protein 7.0 6.0 - 8.0 g/dL LAB CHEMISTRY METHOD 06/30/2025 5:45 PM EDT [facility] Albumin 3.8 3.2 - 5.0 g/dL LAB CHEMISTRY METHOD 06/30/2025 5:45 PM EDT [facility] Total Bilirubin 0.4 0.0 - 1.4 mg/dL LAB CHEMISTRY METHOD 06/30/2025 5:45 PM EDT [facility] Blood Venous blood specimen / Unknown Venipuncture / Unknown 06/30/2025 12:55 PM EDT 06/30/2025 12:55 PM EDT us Jayme Kenyon MD LAB BLOOD ORDERABLES F inal Result [facility] [address] [place] [address], * CT Lung Screening (02/18/2025 1:43 PM [...] Signed Date: 02/19/2025 05:47 ET Workstation ID: [id number] Transcribed By: Self Edit Transcribed Date: 02/19/2025 [...] Signed Date: 02/19/2025 05:47 ET Workstation ID: [id number] Transcribed By: Self Edit Transcribed Date: 02/19/2025 05:41 ET us Carol Leos MD IMG CT PROCEDURES Final Result * Lipid panel with reflex to direct LDL (12/15/2024 1:59 PM EDT) Cholesterol 177 0 - 200 mg/dL LAB CHEMISTRY METHOD 12/15/2024 5:06 PM EDT [facility] Triglycerides 130 0 - 150 mg/dL LAB CHEMISTRY METHOD 12/15/2024 5:06 PM EDT [facility] HDL 56 >=40 mg/dL LAB CHEMISTRY METHOD 12/15/2024 5:06 PM EDT [facility] LDL Calculated 95 0 - 100 mg/dL LAB CHEMISTRY METHOD 12/15/2024 5:06 PM EDT [facility] VLDL Cholesterol Luigi 26 mg/dL LAB CHEMISTRY METHOD 12/15/2024 5:06 PM EDT [facility] Non HDL Chol. (LDL+VLDL) 121 <145 mg/dL LAB CHEMISTRY METHOD 12/15/2024 5:06 PM EDT [facility] Chol/HDL Ratio 3.2 0.0 - 4.4 LAB CHEMISTRY METHOD 12/15/2024 5:06 PM EDT [facility] Blood Venous blood specimen / Unknown Venipuncture / Unknown 12/15/2024 1:59 PM EDT 12/15/2024 1:59 PM EDT us Hosea CERVANTES LAB BLOOD ORDERABLES Tanisha l Result [facility] [address] [place] [address], [place] [phone] * Depression Screening (11/25/2023) Depression Screening abstracted [...] esult * Cervical Cancer Screening: HPV (07/05/2022) [facility] Cervical Cancer Screening: HPV abstracted, negative [facility] Provider HEALTH MAINTENANCE Final Result * Colonoscopy (02/03/2021) [facility] Colonoscopy abstracted, no interpretation Anatomical Region Laterality Modality Other [facility] Provider HEALTH MAINTENANCE Final Result * Hepatitis C Screening (06/05/2013) [facility] Hepatitis C Screening abstracted [facility] Provider HEALTH MAINTENANCE Final Result from Last 3 Months or Most Recently Relevant to Health Maintenance Insurance MEDIC[place] Care Teams Retirement Benefits Specialist Relationship Specialty Start Date End Date Hosea Douglas PA [address] [place] [address] PCP - General Internal Medicine 02/01/21
--- OUTSIDE RECORDS SUMMARY | 2025-08-05 17:17 | XMS_ITS | Encounter Summary ---
Author Organization [facility] Address [address] [place] [address] Care Team Providers Care Nuclear Test Technician Name Role Phone Hosea Douglas Primary Care Provider [phone] Encounter Details Date Type Department Care Team ([facility] Contact Info) Description 07/01/2025 Results Follow-Up Adult Medicine [facility] [address], [place] [phone] Jayme Kenyon MD [address], [place] Social History Tobacco Use Types Packs/Day [...] for your loved ones. For example, children's institution attendant or elderly care for an older adult? [...] as of this encounter Plan of Treatment Not on file documented as of this encounter Visit Diagnoses Not on filedocumented in this encounter Care Teams Nuclear Test Technician Relationship Specialty Start Date End Date Hosea Douglas PA [address] [place] [phone] PCP - General Internal Medicine 02/01/21 documented as of this encounter
--- OUTSIDE RECORDS SUMMARY | 2025-08-05 17:17 | XMS_ITS | Data Portability ---
Author Organization [facility] Address [address] [facility] [address] [place] [address] Care Team Providers Care Ranch Rider Name Role Phone NONE, LISTED Primary Care [...] - s/p left THR on 01/08/22 in [place] - surgical wound infection - possible prosthetic [...] - s/p left THR on 01/08/22 in [place] - surgical wound infection - possible prosthetic [...] auto diff 2021 022 [email or web address], [address] [place] [address], [address], 10:47:10 HbA1c (hemoglobi n A1c), blood 2021 022 [email or web address], [address] [place] [address], [address], 2 10:47:10 methicilli n resistant staphyloco ccus aureus, culture, nasal 2021 022 [email or web address], [address] [place] [address], [address], 2 10:47:10 type + screen, blood 2021 022 [email or web address], [address] [place] [address], [address], 2 10:47:10 CMP, serum or plasma 2021 022 JOSÉ MIGUEL [facility], [address] [place] [address], [address], 14:03:58 ESR (erythrocy te sedimentat ion rate), blood 2021 [facility], [address] [place] [address], [address], 13:29:45 C-reactive protein, quantitati ve, serum or plasma 2021 [email or web address], [address] [place] [address], [address], 08:04:31 CBC w/ auto diff 2021 [facility], [address] [place] [address], [address], 12:48:54 CMP, serum or plasma 2021 [facility], [address] [place] [address], 14[address], 13:26:12 ESR (erythrocy te sedimentat ion rate), blood 2021 [facility], [address] [place] [address], [address], 12:58:48 C-reactive protein, quantitati ve, serum or [facility], [address] [place] [address], [address], 07:18:26 Referral physical therapist referral 2021 [email or web address] Not available 11:50:50 Procedures None recorded. Surgeries total hip arthroplas ty, anterior approach (SURG) 2021 [email or web address] Not available 08:18:[address], hip, w/o contrast 2021 JOSÉ MIGUEL Not available 08/16/202 2 17:05:42 Medication Orders oxycodone 10 mg tablet 2021 022 JOSÉ MIGUEL [place], [place] - [id number], [address] [place], [address], 11:31:26 celecoxib 200 mg capsule 2021 022 [email or web address] [place] - [id number], [address] [place], [address], 2 12:52:05 Patient TargetsNo targets recorded. Patient InstructionsNo instructions recorded. 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 ANNETTE Referring Physician: Kate Yougn, Orthopedic Surgery, Encounter Date: 06/06/2022 Results Created Date Observation Date Name Description Value Unit Range Abnormal Flag Note LastModifiedBy Organization Detail LastModifiedTime 02/16/20 22 02/15/2022 COMPL ETE BLOOD COUNT AUTO DIFF white blood count 9.9 X10_3 /uL 4.5-11 .0 normal Not Available [address] [place] [address] [facility] [address], [place], [address] 02/15/2022 11:45:46 02/16/20 22 02/15/2022 COMPL ETE BLOOD COUNT AUTO DIFF red blood count 4.55 X10_6 /uL 3.70-5 .00 normal Not Available [facility] [address] [facility] [address], [place], [address] 02/15/2022 11:45:46 02/16/2002/15/2022 COMPL ETE BLOOD COUNT AUTO DIFF hemoglobin 12.5 g/dL 11.0-1 6.0 normal Not Available [facility] [address] [facility] [address], [place], [address] 02/15/2022 11:45:46 02/16/2002/15/2022 COMPL ETE BLOOD COUNT AUTO DIFF hematocrit 41.1 % 33.5-4 5.0 normal Not Available [facility] [address] [facility] [address], [place], [address] 02/15/2022 11:45:46 02/16/20 22 02/15/2022 COMPL ETE BLOOD COUNT AUTO DIFF mean corpuscular volume 90.3 fL 80.0-1 00.0 normal Not Available [facility] [address] [facility] [address], [place], [address] 02/15/2022 11:45:46 02/16/20 22 02/15/2022 COMPL ETE BLOOD COUNT AUTO DIFF mean corpuscular hemoglobin 27.5 pg 27.0-3 4.0 normal Not Available [facility] [address] [address], [place], [address] 02/15/2022 11:45:46 02/16/20 22 02/15/2022 COMPL ETE BLOOD COUNT AUTO DIFF mean corpuscular HGB conc 30.4 g/dL 31.0-3 6.0 low Not Available [facility] [address] [address], [place], [address] 02/15/2022 11:45:46 02/16/20 22 02/15/2022 COMPL ETE BLOOD COUNT AUTO DIFF red cell distribution width 15.0 % 11.5-1 5.0 normal Not Available [facility] [address] [address], [place], [address] 02/15/2022 11:45:46 02/16/20 22 02/15/2022 COMPL ETE BLOOD COUNT AUTO DIFF platelet count 323 X10_3 /uL 150-40 0 normal Not Available [facility] [address] [address], [place], [address] 02/15/2022 11:45:46 02/16/20 22 02/15/2022 COMPL ETE BLOOD COUNT AUTO DIFF immature granulocytes % (auto) 0.2 % Not Available [facility] [address] [facility] [address], [place], [address] 02/15/2022 11:45:46 02/16/20 22 02/15/2022 COMPL ETE BLOOD COUNT AUTO DIFF neutrophils % (auto) 42.5 % Not Available [facility] [address] [facility] [address], [place], [address] 02/15/2022 11:45:46 02/16/20 22 02/15/2022 COMPL ETE BLOOD COUNT AUTO DIFF lymphocytes % (auto) 43.3 % Not Available [facility] [address] [facility] [address], [place], [address] 02/15/2022 11:45:46 02/16/20 22 02/15/2022 COMPL ETE BLOOD COUNT AUTO DIFF monocytes % (auto) 9.8 % Not Available [facility] [address] [address], [place], [address] 02/15/2022 11:45:46 02/16/20 22 02/15/2022 COMPL ETE BLOOD COUNT AUTO DIFF eosinophils % (auto) 3.7 % Not Available [facility] [address] [address], [place], [address] 02/15/2022 11:45:46 02/16/20 22 02/15/2022 COMPL ETE BLOOD COUNT AUTO DIFF basophils % (auto) 0.5 % Not Available [address] [address], [place], [address] 02/15/2022 11:45:46 02/16/20 22 02/15/2022 COMPL ETE BLOOD COUNT AUTO DIFF immature granulocytes # (auto) 0.02 X10_3 /uL 0.00-0 .09 normal Not Available [address] [address], [place], [address] 02/15/2022 11:45:46 02/16/20 22 02/15/2022 COMPL ETE BLOOD COUNT AUTO DIFF neutrophils # (auto) 4.2 X10_3 /uL 1.5-7. 8 normal Not Available [address] [address], [place], [address] 02/15/2022 11:45:46 02/16/20 22 02/15/2022 COMPL ETE BLOOD COUNT AUTO DIFF lymphocytes # (auto) 4.3 X10_3 /uL 1.0-4. 8 normal Not Available [facility] [address] [facility] [address], [place], [address] 02/15/2022 11:45:46 02/16/20 22 02/15/2022 COMPL ETE BLOOD COUNT AUTO DIFF monocytes # (auto) 1.0 X10_3 /uL 0.0-0. 8 high Not Available [facility] [address] [address], [place], [address] 02/15/2022 11:45:46 02/16/20 22 02/15/2022 COMPL ETE BLOOD COUNT AUTO DIFF eosinophils # (auto) 0.4 X10_3 /uL 0.0-0. 5 normal Not Available [facility] [address] [address], [place], [address] 02/15/2022 11:45:46 02/16/20 22 02/15/2022 COMPL ETE BLOOD COUNT AUTO DIFF basophils # (auto) 0.1 X10_3 /uL 0.0-0. 2 normal Not Available [facility] [address] [address], [place], [address] 02/15/2022 11:45:46 02/16/20 22 02/15/2022 COMPL ETE BLOOD COUNT AUTO DIFF nucleated RBC% 0.0 /100_ WBC 0.0-0. 0 normal Not Available [facility] [address] [address], [place], [address] 02/15/2022 11:45:46 02/16/20 22 02/15/2022 ERYTH ROCYT E SEDIM ENTAT ION RATE erythrocyte sedimentatio n rate 34 mm/HR 0-30 high Not Available [facility] [address] [address], [place], [address] 02/15/2022 11:59:22 02/16/20 22 02/15/2022 COMPR EHENS PARMINDER METAB OLIC PANEL sodium 138 mmol/ L 137-14 6 normal Not Available [facility] [address] [address], [place], [address] 02/15/2022 12:02:00 02/16/20 22 02/15/2022 COMPR EHENS PARMINDER METAB OLIC PANEL potassium,K 4.0 mmol/ L 3.5-5. 3 normal Not Available [facility] [address] [address], [place], [address] 02/15/2022 12:02:00 02/16/20 22 02/15/2022 COMPR EHENS PARMINDER METAB OLIC PANEL chloride 101 mmol/ L 98-107 normal Not Available [facility] [address] [address], [place], [address] 02/15/2022 12:02:00 02/16/20 22 02/15/2022 COMPR EHENS PARMINDER METAB OLIC PANEL carbon dioxide 28 mmol/ L 23-32 normal Not Available [facility] [address], [place], [address] 02/15/2022 12:02:00 02/16/20 22 02/15/2022 COMPR EHENS PARMINDER METAB OLIC PANEL anion gap 9 mmol/ L 5-15 normal Not Available [facility] [address], [place], [address] 02/15/2022 12:02:00 02/16/20 22 02/15/2022 COMPR EHENS PARMINDER METAB OLIC PANEL blood urea nitrogen 4 mg/dL 5-25 low Not Available [facility] [address], [place], [address] 02/15/2022 12:02:00 02/16/20 22 02/15/2022 COMPR EHENS PARMINDER METAB OLIC PANEL creatinine 0.9 mg/dL 0.5-1. 1 normal Not Available [facility] [address], [place], [address] 02/15/2022 12:02:00 02/16/20 22 02/15/2022 COMPR EHENS PARMINDER METAB OLIC PANEL estimated GFR ( nikhil 81 >=60 mL/min / Not Available [facility] [address], [place], [address] 02/15/2022 12:02:00 02/16/20 22 02/15/2022 COMPR EHENS PARMINDER METAB OLIC PANEL estimated GFR (non afr nikhil 69 >=60 mL/min / Not Available [facility] [address], [place], [address] 02/15/2022 12:02:00 02/16/20 22 02/15/2022 COMPR EHENS PARMINDER METAB OLIC PANEL BUN/creatini ne ratio 4.4 10.0-2 0.0 low Not Available [facility] [address], [place], [address] 02/15/2022 12:02:00 02/16/20 22 02/15/2022 COMPR EHENS PARMINDER METAB OLIC PANEL glucose 91 mg/dL <100 -fasti ng normal Not Available [facility] [address], [place], [address] 02/15/2022 12:02:00 05/19/02/15/2022 COMPR EHENS PARMINDER METAB OLIC PANEL calcium 9.0 mg/dL 8.6-10 .3 normal Not Available [facility] [address] [address], [place], [address] 02/15/2022 12:02:00 02/16/20 22 02/15/2022 COMPR EHENS PARMINDER METAB OLIC PANEL bilirubin,to gab < 0.2 mg/dL <1.2 Not Available [facility] [address] [address], [place], [address] 02/15/2022 12:02:00 02/16/20 22 02/15/2022 COMPR EHENS PARMINDER METAB OLIC PANEL aspartate amino transferase 17 U/L 15-41 normal Not Available [facility] [address] [address], [place], [address] 02/15/2022 12:02:00 02/16/20 22 02/15/2022 COMPR EHENS PARMINDER METAB OLIC PANEL alanine aminotransfe rase 12 U/L 14-54 low Not Available [facility] [address] [address], [place], [address] 02/15/2022 12:02:00 02/16/20 22 02/15/2022 COMPR EHENS PARMINDER METAB OLIC PANEL total protein 7.2 g/dL 6.4-8. 3 normal Not Available [facility] [address] [address], [place], [address] 02/15/2022 12:02:00 02/16/20 22 02/15/2022 COMPR EHENS PARMINDER METAB OLIC PANEL albumin level 3.9 g/dL 4.0-5. 0 low Not Available [facility] [address] [facility] [address], [place], [address] 02/15/2022 12:02:00 02/16/20 22 02/15/2022 COMPR EHENS PARMINDER METAB OLIC PANEL albumin/glob ulin ratio 1.2 1.0-2. 6 normal Not Available [facility] [address] [facility] [address], [place], [address] 02/15/2022 12:02:00 02/16/20 22 02/15/2022 COMPR EHENS PARMINDER METAB OLIC PANEL alkaline phosphatase 202 U/L 35-104 high Not Available [facility] [address] [facility] [address], [place], [address] 02/15/2022 12:02:00 02/16/20 22 02/15/2022 C-DILIA CTIVE PROTE IN C-reactive protein 1.59 mg/dL <0.50 high Not Available [facility] [address] [facility] [address], [place], [address] 02/15/2022 12:02:01 02/20/20 22 02/19/2022 SURGI SOFY PATHO LOGY results Run: 02/22 1047 Speci men Inqui ry ----- ----- ----- ----- ----- ----- ----- ----- ----- ----- ----- ----- ----- ----- ----- ---- Name: ZEYAD MANCILLA PE NNY M Age/S ex: 61/F Locat ion: [id number].[id number] Acct: [id number] Unit: [id number] Statu s: ADM IN Room/ Bed: EM772 [...] /6 [place] [address] /3 01236 Level 4 - Gross and Micro scopi c/3 Kala d (sign ature on file) _ Ean andersen MD 02/22 1047 ----- ----- ----- ----- ----- ----- ----- ----- ----- ----- ----- ----- ----- ----- ----- ---- END OF REPOR T Not Available [facility] [address], [place], [address] 02/22/2022 10:48:07 03/07/20 22 03/07/2022 COMPL ETE BLOOD COUNT AUTO DIFF white blood count 10.2 X10_3 /uL 4.5-11 .0 normal Not Available [facility] [address], [place], [address] 03/07/2022 12:48:54 03/07/20 22 03/07/2022 COMPL ETE BLOOD COUNT AUTO DIFF red blood count 4.42 X10_6 /uL 3.70-5 .00 normal Not Available [facility] [address], [place], [address] 03/07/2022 12:48:54 03/07/20 22 03/07/2022 COMPL ETE BLOOD COUNT AUTO DIFF hemoglobin 12.0 g/dL 11.0-1 6.0 normal Not Available [facility] [address], [place], [address] 03/07/2022 12:48:54 03/07/20 22 03/07/2022 COMPL ETE BLOOD COUNT AUTO DIFF hematocrit 39.0 % 33.5-4 5.0 normal Not Available [facility] [address] [address], [place], [address] 03/07/2022 12:48:54 03/07/20 22 03/07/2022 COMPL ETE BLOOD COUNT AUTO DIFF mean corpuscular volume 88.2 fL 80.0-1 00.0 normal Not Available [address] [address], [place], [address] 03/07/2022 12:48:54 03/07/20 22 03/07/2022 COMPL ETE BLOOD COUNT AUTO DIFF mean corpuscular hemoglobin 27.1 pg 27.0-3 4.0 normal Not Available [address] [address], [place], [address] 03/07/2022 12:48:54 03/07/20 22 03/07/2022 COMPL ETE BLOOD COUNT AUTO DIFF mean corpuscular HGB conc 30.8 g/dL 31.0-3 6.0 low Not Available [address] [address], [place], [address] 03/07/2022 12:48:54 03/07/20 22 03/07/2022 COMPL ETE BLOOD COUNT AUTO DIFF red cell distribution width 14.3 % 11.5-1 5.0 normal Not Available [address] [address], [place], [address] 03/07/2022 12:48:54 03/07/20 22 03/07/2022 COMPL ETE BLOOD COUNT AUTO DIFF platelet count 371 X10_3 /uL 150-40 0 normal Not Available [facility] [address] [address], [place], [address] 03/07/2022 12:48:54 03/07/20 22 03/07/2022 COMPL ETE BLOOD COUNT AUTO DIFF immature granulocytes % (auto) 0.2 % Not Available [address] [address], [place], [address] 03/07/2022 12:48:54 03/07/20 22 03/07/2022 COMPL ETE BLOOD COUNT AUTO DIFF neutrophils % (auto) 42.1 % Not Available [address] [address], [place], [address] 03/07/2022 12:48:54 03/07/20 22 03/07/2022 COMPL ETE BLOOD COUNT AUTO DIFF lymphocytes % (auto) 43.8 % Not Available [facility] [address] [address], [place], [address] 03/07/2022 12:48:54 03/07/20 22 03/07/2022 COMPL ETE BLOOD COUNT AUTO DIFF monocytes % (auto) 8.0 % Not Available [address] [address], [place], [address] 03/07/2022 12:48:54 03/07/20 22 03/07/2022 COMPL ETE BLOOD COUNT AUTO DIFF eosinophils % (auto) 5.0 % Not Available [address] [address], [place], [address] 03/07/2022 12:48:54 03/07/20 22 03/07/2022 COMPL ETE BLOOD COUNT AUTO DIFF basophils % (auto) 0.9 % Not Available [address] [address], [place], [address] 03/07/2022 12:48:54 03/07/20 22 03/07/2022 COMPL ETE BLOOD COUNT AUTO DIFF immature granulocytes # (auto) 0.02 X10_3 /uL 0.00-0 .09 normal Not Available [facility] [address] [address], [place], [address] 03/07/2022 12:48:54 03/07/20 22 03/07/2022 COMPL ETE BLOOD COUNT AUTO DIFF neutrophils # (auto) 4.3 X10_3 /uL 1.5-7. 8 normal Not Available [facility] [address] [address], [place], [address] 03/07/2022 12:48:54 03/07/20 22 03/07/2022 COMPL ETE BLOOD COUNT AUTO DIFF lymphocytes # (auto) 4.5 X10_3 /uL 1.0-4. 8 normal Not Available [facility] [address] [address], [place], [address] 03/07/2022 12:48:54 03/07/20 22 03/07/2022 COMPL ETE BLOOD COUNT AUTO DIFF monocytes # (auto) 0.8 X10_3 /uL 0.0-0. 8 normal Not Available [address] [address], [place], [address] 03/07/2022 12:48:54 03/07/20 22 03/07/2022 COMPL ETE BLOOD COUNT AUTO DIFF eosinophils # (auto) 0.5 X10_3 /uL 0.0-0. 5 normal Not Available [address] [address], [place], [address] 03/07/2022 12:48:54 03/07/20 22 03/07/2022 COMPL ETE BLOOD COUNT AUTO DIFF basophils # (auto) 0.1 X10_3 /uL 0.0-0. 2 normal Not Available [address] [address], [place], [address] 03/07/2022 12:48:54 03/07/20 22 03/07/2022 COMPL ETE BLOOD COUNT AUTO DIFF nucleated RBC% 0.0 /100_ WBC 0.0-0. 0 normal Not Available [address] [address], [place], [address] 03/07/2022 12:48:54 03/07/20 22 03/07/2022 ERYTH ROCYT E SEDIM ENTAT ION RATE erythrocyte sedimentatio n rate 71 mm/HR 0-30 high Not Available [address] [address], [place], [address] 03/07/2022 12:58:48 03/07/20 22 03/07/2022 COMPR EHENS PARMINDER METAB OLIC PANEL sodium 137 mmol/ L 137-14 6 normal Not Available [address] [address], [place], [address] 03/07/2022 13:26:12 03/07/20 22 03/07/2022 COMPR EHENS PARMINDER METAB OLIC PANEL potassium,K 4.0 mmol/ L 3.5-5. 3 normal Not Available [address] [address], [place], [address] 03/07/2022 13:26:12 03/07/20 22 03/07/2022 COMPR EHENS PARMINDER METAB OLIC PANEL chloride 100 mmol/ L 98-107 normal Not Available [address] [address], [place], [address] 03/07/2022 13:26:12 03/07/20 22 03/07/2022 COMPR EHENS PARMINDER METAB OLIC PANEL carbon dioxide 27 mmol/ L 23-32 normal Not Available [facility] [address] [facility] [address], [place], [address] 03/07/2022 13:26:12 03/07/20 22 03/07/2022 COMPR EHENS PARMINDER METAB OLIC PANEL anion gap 10 mmol/ L 5-15 normal Not Available [facility] [address] [facility] [address], [place], [address] 03/07/2022 13:26:12 03/07/20 22 03/07/2022 COMPR EHENS PARMINDER METAB OLIC PANEL blood urea nitrogen 6 mg/dL 5-25 normal Not Available [facility] [address] [facility] [address], [place], [address] 03/07/2022 13:26:12 03/07/20 22 03/07/2022 COMPR EHENS PARMINDER METAB OLIC PANEL creatinine 0.9 mg/dL 0.5-1. 1 normal Not Available [facility] [address] [facility] [address], [place], [address] 03/07/2022 13:26:12 03/07/20 22 03/07/2022 COMPR EHENS PARMINDER METAB OLIC PANEL estimated GFR ( nikhil 81 >=60 mL/min / Not Available [facility] [address] [facility] [address], [place], [address] 03/07/2022 13:26:12 03/07/20 22 03/07/2022 COMPR EHENS PARMINDER METAB OLIC PANEL estimated GFR (non afr nikhil 69 >=60 mL/min / Not Available [facility] [address] [facility] [address], [place], [address] 03/07/2022 13:26:12 03/07/20 22 03/07/2022 COMPR EHENS PARMINDER METAB OLIC PANEL BUN/creatini ne ratio 6.7 10.0-2 0.0 low Not Available [facility] [address] [facility] [address], [place], [address] 03/07/2022 13:26:12 03/07/20 22 03/07/2022 COMPR EHENS PARMINDER METAB OLIC PANEL glucose 95 mg/dL <100 -fasti ng normal Not Available [facility] [address] [facility] [address], [place], [address] 03/07/2022 13:26:12 03/07/20 22 03/07/2022 COMPR EHENS PARMINDER METAB OLIC PANEL calcium 9.2 mg/dL 8.6-10 .3 normal Not Available [facility] [address] [address], [place], [address] 03/07/2022 13:26:12 03/07/20 22 03/07/2022 COMPR EHENS PARMINDER METAB OLIC PANEL bilirubin,to gab < 0.2 mg/dL <1.2 Not Available [facility] [address] [address], [place], [address] 03/07/2022 13:26:12 03/07/20 22 03/07/2022 COMPR EHENS PARMINDER METAB OLIC PANEL aspartate amino transferase 16 U/L 15-41 normal Not Available [facility] [address] [address], [place], [address] 03/07/2022 13:26:12 03/07/20 22 03/07/2022 COMPR EHENS PARMINDER METAB OLIC PANEL alanine aminotransfe rase < 5 U/L 14-54 low Not Available [facility] [address] [address], [place], [address] 03/07/2022 13:26:12 03/07/20 22 03/07/2022 COMPR EHENS PARMINDER METAB OLIC PANEL total protein 7.3 g/dL 6.4-8. 3 normal Not Available [facility] [address] [address], [place], [address] 03/07/2022 13:26:12 03/07/20 22 03/07/2022 COMPR EHENS PARMINDER METAB OLIC PANEL albumin level 4.0 g/dL 4.0-5. 0 normal Not Available [facility] [address] [address], [place], [address] 03/07/2022 13:26:12 03/07/20 22 03/07/2022 COMPR EHENS PARMINDER METAB OLIC PANEL albumin/glob ulin ratio 1.2 1.0-2. 6 normal Not Available [facility] [address] [facility] [address], [place], [address] 03/07/2022 13:26:12 03/07/20 22 03/07/2022 COMPR EHENS PARMINDER METAB OLIC PANEL alkaline phosphatase 182 U/L 35-104 high Not Available [facility] [address], [place], [address] 03/07/2022 13:26:12 03/07/20 22 03/07/2022 C-DILIA CTIVE PROTE IN C-reactive protein 1.55 mg/dL <0.50 high Not Available [facility] [address], [place], [address] 03/07/2022 13:26:13 05/14/20 22 05/14/2022 TYPE AND PETER Lorenzo BBCarina report Run: 05/14 1319 Speci men Inqui ry ----- ----- ----- ----- ----- ----- ----- ----- ----- ----- ----- ----- ----- ----- ----- ---- Name: FIONA ROWLEY M Age/S ex: 61/F Locat ion: PAT.Dewayne Caceres Acct: [id number] Unit: [id number] Statu s: PRE REF Room/ Bed: Re05/14 Disch : Att Dr: Amber cadet MD ----- ----- ----- ----- ----- ----- ----- ----- ----- ----- ----- ----- ----- ----- ----- ---- Blood Type CELI WILLARD Ab Peter lorenzo (Gel) CELI WILLARD ----- ----- ----- ----- ----- ----- ----- ----- ----- ----- ----- ----- ----- ----- ----- ---- END OF REPOR T Not Available [facility] [address], [place], [address] 05/14/2022 13:19:42 05/14/2005/14/2022 ANNE Goodman ABO/R H TYPE [facility] report Run: 05/14 1319 Speci men Inqui ry ----- ----- ----- ----- ----- ----- ----- ----- ----- ----- ----- ----- ----- ----- ----- ---- Name: ZEYAD FIONA MANCILLA Age/S ex: 61/F Locat ion: PAT.E M Acct: [id number] Unit: [id number] Statu s: PRE REF Room/ Bed: Re05/14 Disch : Att Dr: Amber cadet MD ----- ----- ----- ----- ----- ----- ----- ----- ----- ----- ----- ----- ----- ----- ----- ---- SATURNINO SHANEED TO BE DRAWN ON DOS ----- ----- ----- ----- ----- ----- ----- ----- ----- ----- ----- ----- ----- ----- ----- ---- END OF REPOR T Not Available [facility] [address], [place], [address] 05/14/2022 13:19:43 05/14/20 22 05/14/2022 ERYTH ROCYT E SEDIM ENTAT ION RATE erythrocyte sedimentatio n rate 66 mm/HR 0-30 high Not Available [facility] [address], [place], [address] 05/14/2022 13:29:45 05/14/20 22 05/14/2022 HEMOG LOBIN A1C hemoglobin A1C 5.8 4.3-5. 9 normal Not Available [facility] [address], [place], [address] 05/14/2022 13:32:47 05/14/20 22 05/14/2022 HEMOG LOBIN A1C estimated average glucose 120 mg/dL Not Available [facility] [address], [place], [address] 05/14/2022 13:32:47 05/14/20 22 05/14/2022 TYPE AND SCREDewayne Lorenzo BBK report Run: 05/14 1400 Speci men Inqui ry ----- ----- ----- ----- ----- ----- ----- ----- ----- ----- ----- ----- ----- ----- ----- ---- Name: FIONA ROWLEYY M Age/S ex: 61/F Locat ion: PAT.E M Acct: [id number] Unit: [id number] Statu s: PRE REF Room/ Bed: Re05/14 [...] END OF REPOR T Not Available Formerly [facility] [address], [place], [address] 05/14/2022 14:00:28 05/14/20 22 05/14/2022 C-DILIA CTIVE PROTE IN C-reactive protein 1.18 mg/dL <0.50 high Not Available [facility] [address] [facility] [address], [place], [address] 05/14/2022 14:03:29 05/14/20 22 05/14/2022 COMPR EHENS PARMINDER METAB OLIC PANEL sodium 141 mmol/ L 137-14 6 normal Not Available [facility] [address] [facility] [address], [place], [address] 05/14/2022 14:03:58 05/14/20 22 05/14/2022 COMPR EHENS PARMINDER METAB OLIC PANEL potassium,K 3.9 mmol/ L 3.5-5. 3 normal Not Available [facility] [address] [facility] [address], [place], [address] 05/14/2022 14:03:58 05/14/20 22 05/14/2022 COMPR EHENS PARMINDER METAB OLIC PANEL chloride 104 mmol/ L 98-107 normal Not Available [facility] [address] [facility] [address], [place], [address] 05/14/2022 14:03:58 05/14/20 22 05/14/2022 COMPR EHENS PARMINDER METAB OLIC PANEL carbon dioxide 29 mmol/ L 23-32 normal Not Available [facility] [address] [facility] [address], [place], [address] 05/14/2022 14:03:58 05/14/20 22 05/14/2022 COMPR EHENS PARMINDER METAB OLIC PANEL anion gap 8 mmol/ L 5-15 normal Not Available [facility] [address] [facility] [address], [place], [address] 05/14/2022 14:03:58 05/14/20 22 05/14/2022 COMPR EHENS PARMINDER METAB OLIC PANEL blood urea nitrogen 5 mg/dL 5-25 normal Not Available [facility] [address] [facility] [address], [place], [address] 05/14/2022 14:03:58 05/14/20 22 05/14/2022 COMPR EHENS PARMINDER METAB OLIC PANEL creatinine 0.9 mg/dL 0.5-1. 1 normal Not Available [facility] [address] [facility] [address], [place], [address] 05/14/2022 14:03:58 05/14/20 22 05/14/2022 COMPR EHENS PARMINDER METAB OLIC PANEL estimated GFR ( nikhil 81 >=60 mL/min / Not Available [facility] [address] [address], [place], [address] 05/14/2022 14:03:58 05/14/20 22 05/14/2022 COMPR EHENS PARMINDER METAB OLIC PANEL estimated GFR (non afr nikhil 69 >=60 mL/min / Not Available [facility] [address] [address], [place], [address] 05/14/2022 14:03:58 05/14/20 22 05/14/2022 COMPR EHENS PARMINDER METAB OLIC PANEL BUN/creatini ne ratio 5.6 10.0-2 0.0 low Not Available [facility] [address] [address], [place], [address] 05/14/2022 14:03:58 05/14/20 22 05/14/2022 COMPR EHENS PARMINDER METAB OLIC PANEL glucose 101 mg/dL <100 -fasti ng high Not Available [facility] [address] [address], [place], [address] 05/14/2022 14:03:58 05/14/20 22 05/14/2022 COMPR EHENS PARMINDER METAB OLIC PANEL calcium 9.4 mg/dL 8.6-10 .3 normal Not Available [facility] [address] [address], [place], [address] 05/14/2022 14:03:58 05/14/20 22 05/14/2022 COMPR EHENS PARMINDER METAB OLIC PANEL bilirubin,to gab < 0.2 mg/dL <1.2 Not Available [facility] [address] [address], [place], [address] 05/14/2022 14:03:58 05/14/20 22 05/14/2022 COMPR EHENS PARMINDER METAB OLIC PANEL aspartate amino transferase 23 U/L 15-41 normal Not Available [facility] [address] [address], [place], [address] 05/14/2022 14:03:58 05/14/20 22 05/14/2022 COMPR EHENS PARMINDER METAB OLIC PANEL alanine aminotransfe rase 13 U/L 14-54 low Not Available [facility] [address] [address], [place], [address] 05/14/2022 14:03:58 05/14/20 22 05/14/2022 COMPR EHENS PARMINDER METAB OLIC PANEL total protein 7.5 g/dL 6.4-8. 3 normal Not Available [facility] [address] [address], [place], [address] 05/14/2022 14:03:58 05/14/20 22 05/14/2022 COMPR EHENS PARMINDER METAB OLIC PANEL albumin level 4.2 g/dL 4.0-5. 0 normal Not Available [facility] [address] [address], [place], [address] 05/14/2022 14:03:58 05/14/20 22 05/14/2022 COMPR EHENS PARMINDER METAB OLIC PANEL albumin/glob ulin ratio 1.3 1.0-2. 6 normal Not Available [facility] [address] [address], [place], [address] 05/14/2022 14:03:58 05/14/20 22 05/14/2022 COMPR EHENS PARMINDER METAB OLIC PANEL alkaline phosphatase 162 U/L 35-104 high Not Available [facility] [address] [address], [place], [address] 05/14/2022 14:03:58 05/14/20 22 05/15/2022 MRSA/ MSSA PRE-O P (NARE S) MRSA/mssa pre-op (nares) No Methic illin Sensit parminder or Resist ant Staph aureus isolat ed. Not Available [facility] [address] [address], [place], [address] 05/15/2022 14:02:41 05/22/20 22 05/22/2022 SURGI SOFY PATHO LOGY results Run: 05/24 6675 Speci men Inqui ry ----- ----- ----- ----- ----- ----- ----- ----- ----- ----- ----- ----- ----- ----- ----- ---- Name: FIONA ROWLEY Age/S ex: 62/F Locat ion: PACU. EM Acct: [id number] Unit: [id number] Statu s: DIS IN Room/ Bed: PACU. [...] speci men is recei maurice in forma jmi label ed with the patie nt's name, [...] CPT Proce dures :[place] 91050 Hemat oxyli n + Eosin Stain /3 41875 Level 3 - Gross and Micro scopi c Kala d (sign ature on file) _ Josesito felder MD 05/24 1445 ----- ----- ----- ----- ----- ----- ----- ----- ----- ----- ----- ----- ----- ----- ----- ---- END OF REPOR T Not Available [facility] [address], [place], [address] 05/24/2022 14:45:34 02/17/20 22 02/16/2022 XR, hip, unila teral [facility] [address] [place], [place] [address] Patien t Name: NADIA MILLER Medica l Record #: [id number] Addres s: [address] [facility] t#: [id number] City/S mit[place]/Z ip: [place] [address]: Kate zayas PAC Phone: Insura nce: Medica re A&B /Ag e/Sex: 1959/6 0/F [facility] No PCC Admit/ Reg Date: Orderi sudheer Dr: Kate zayas, PAC Locati on: [facility] EM/ PCP: Pcp-No n StaffMd Date of Servic e: Order (s): XR hip LT min 2V CPT Code: 54141 Report Number : [id number] Reason for Exam: PAIN Pain [...] ed degene rative change s of the nulato right hip. Dictat ed By: Claribel jasso MD 1454 Signed By: Gene Lucas MD 1500 TD/TT: 1454 Tech: [id number] cc: LHELA; PCPNS* Kate Hatfield eux, PAC; Loreta Waldrop [facility] [address], [place], [address] 02/20/2022 15:35:03 02/17/20 22 02/15/2022 XR, hip, unila teral , 2 or 3 view No observ ation record ed. [facility] Atention: Jethro [address] [facility], [place], [address], 02/20/2022 15:35:04 02/20/20 22 02/19/2022 XR, hip, unila teral , 1 view [facility] Medica l [facility] [address] [place] [address] Patien t Name: GISELLA BaigNADIAMaura Caceres Medica l Record #: [id number] Addres s: [address] [facility] Accoun t#: [id number] City/S mitchell/Z ip: [place] [address]: Elvia Martinez MD Phone: Insura nce: Medica re A&B /Ag e/Sex: 1959/6 0/F [facility] No PCC Admit/ Reg Date: Calii sudheer Johnson: Kate zayas, PAC Locati on: PACU.E M/PACU . PCP: Memo Nguyen Md Date of Servic e: Order (s): XR hip LT 1V CPT Code: 03173 Report Number : [id number] Reason for Exam: s/p L [...] zayas, PAC; Elvia Martinez MD; Loreta Waldrop [facility] [address] [facility] [address], [place], [address] 02/20/2022 15:35:04 02/20/20 22 02/19/2022 XR, hip, unila teral , 2 or 3 view No observ ation record ed. ll[facility]ureux [facility] [address] [facility], [place], [address], 02/20/2022 15:35:05 03/09/20 22 03/09/2022 XR, hip + pelvi s, unila teral [facility] [address] [place] [address] Patien t Name: NADIA MILLER Medica l Record #: [id number] Addres s: [address] [facility] Accoun t#: [id number] City/S [place] ip: [place] [address]: Kate zayas PAC Phone: Insura nce: Medica re A&B /Ag e/Sex: 1959/ [birth year]/F [facility] No PCC Admit/ Reg Date: Orderi ng Dr: Kate zayas, PAC Locati on: [facility] EM/ PCP: Pcp-No maura StaffMd Date of Servic e: Order (s): XR hip pelvis LT min 2V CPT Code: 23521 Report Number : [id number] Reason for Exam: HIP PAIN [...] cc: LHELA; PCPNS* Kate zayas, PAC; Dequan uvLoreta [facility]ne [facility] [address], [place], [address] 03/13/2022 16:45:35 03/09/20 22 03/07/2022 XR, hip, unila teral , 2 or 3 view No observ ation record ed. [facility] Atention: Jethro [address] [facility], [place], [address], 03/13/2022 16:45:35 05/15/2005/15/2022 CT, hip, w/o contr ast [facility] Medica l [facility] [address] [place] [address] Patien t Name: NADIA MILLER Morris Medica l Record #: [id number] Addres s: [address] [facility] Accoun t#: [id number] City/S mitchell/Z ip: [place] [address]: Rigo Kennedy PAC Phone: Insura nce: Medica re A&B /Ag e/Sex: 1959/ [birth year]/F [facility] No PCC Admit/ Reg Date: Orderi sudheer Dr: Rigo Kennedy, PAC Locati on: DI.CTE M/ PCP: Pcp-No n StaffMd Date of Servic e: Order (s): CT johanna hip RT wo contra st CPT Code: 36274 Report Number : [id number] Reason for Exam: OSTEOA RTHRIT [...] MD 1704 TD/TT: 1658 Tech: [facility] 01 cc: GENTRY; PCPNS* PIERCE Guevara; Loreta Waldrop [facility] [address], [place], [address] 05/16/2022 11:03:39 05/22/2005/22/2022 XR, hip, unila teral , 1 view [facility]ica [facility] [address] [place] [address] [phone] Patien t Name: ZEYADKarthik PRIYA BaigMaura Caceres Medica l Record #: [id number] Addres s: [address] [facility] Accoun t#: [id number] City/S mitchell/Z ip: [place] [address]: Elvia Martinez MD Phone: Insura nce: Medica re A&B /Ag e/Sex: 1959/ 1/F [facility] No PCC Admit/ Reg Date: Waldo willard Dr: Kate zayas PAC Locati on: PACU.E M/PACU . PCP: PcpHugo Nguyen Md Date of Servic e: Order (s): XR hip RT 1V CPT Code: 03408 Report Number : [id number] Reason for Exam: s/p R [...] zayas PAC; Elvia Martinez MD; Loreta Waldrop [facility] [address] [address], [place], [address] 06/05/2022 16:33:25 05/22/20 22 05/22/2022 XR, hip, unila teral No observ ation record ed. [facility] [address] [place] [address], [address], 06/07/2022 13:05:01 05/23/20 22 05/14/2022 EKG elect tayla jamison [facility] Medica [address] [address] Patien t Name: GISELLA BaigNADIAMaura Caceres Medica l Record #: [id number] Addres s: [address] [facility] Accoun t#: [id number] City/S mitchell/Z ip: [place] [address]: Elvia Martinez MD Phone: Insura nce: Medica re A&B /Ag e/Sex: 1959/6 0/F [facility] No PCC Admit/ Reg Date: Orderi ng Dr: Elvia Martinez MD Locati on: PAT.EM / PCP: Pcp-No n Staff, Md Date of Servic e: Order (s): EKG Electr ocardi ogram CPT Code: 44316 Report Number : [id number] Reason for Exam: pre op Sinus rhythm , Regula r, HR 79 NORMAL AXIS AND INTERV ALS. 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 [address] [place], [place] [address] [phone] Patien t Name: NADIA MILLER Medica l Record #: [id number] Addres s: [address] [facility] Accoun t#: [id number] City/S mitchell/Z ip: [place] [address]: Kate zayas PAC Phone: Insura nce: Medica re A&B /Ag e/Sex: 1959/6 1/F [facility] No PCC Admit/ Reg Date: Orderi sudheer Dr: Kate zayas, PAC Locati on: [facility] EM/ PCP: PcpHugo Nguyen Md Date of Servic e: Order (s): XR hip pelvis BI min 3V CPT Code: 60439 Report Number : [id number] Reason for Exam: HIP PAIN [...] MARGUERITE; PCPNS* Kate zayas, PAC; Loreta Waldrop [facility] Rad [address], [place], [address] 06/12/2022 14:34:30 06/08/20 22 06/06/2022 XR, hip, bilat eral No observ ation record ed. [facility] Atention: Jethro [address] [facility], [place], [address], 06/12/2022 14:34:55 Result Notes Documentation Provider Name and Address Organization Details Recorded Time Xr, Hip + Pelvis, Unilateral : [facility] [address] [place] [address] Patient Name: LAURA HICKMAN Medical Record#: [id number] Address: [address] [place] [address] City/State/Zip: [place] [address]: Kate Young PAC Insurance: Medicare A&B /Age/Sex: 1960/61/F [facility] No PCC Admit/Reg Date: 03/06/[address]: Kate Young, PAC Location: .CEM/ PCP: Pcp-Non StaffMd Date of Service: 03/07/22 Order (s): XR hip pelvis LT min 2V CPT Code: 21863 Report Number: [id number] Reason for Exam: HIP PAIN XR hip [...] MD 03/09/22 1029 TD/TT: 03/09/22 1021 Tech: [id number] cc: MARGUERITE; HELENA* Kate Young, PAC; Oracio Douglas, HELEN [address] [place] [address], [phone] 03/13/2022 16:45:35 Ct, Hip, W/o Contrast : [place] [address] Patient Name: LAURA HICKMAN Medical Record#: [id number] Address: [address] [place] [address] City/State/Zip: [place] [address]: Bindu Kennedy PAC Insurance: Medicare A&B /Age/Sex: 1960/61/F [facility] No PCC Admit/Reg Date: 05/14/[address]: Bindu Kennedy, PAC Location: DI.CTEM/ PCP: Pcp-Marie Nguyen Md Date of Service: 05/14/22 Order (s): CT johanna hip RT wo contrast CPT Code: 58983 Report Number: [id number] Reason for Exam: OSTEOARTHRITIS OF RIGHT HIP [...] Kauffman MD 05/15/22 1705 TD/TT: 05/15/221658 Tech: [id number] cc: GENTRY; CHECONS* Bindu Kennedy, PIERCE; Oracio Douglas PA [address] [place] [address], [address] 05/16/2022 11:03:39 Xr, Hip, Unilateral, 1 View : [place] [id number] Patient Name: LAURA HICKMAN Medical Record#: [id number] Address: [address] [place] [address] City/State/Zip: [place] [address]: Geovany Martinez MD Insurance: Medicare A&B /Age/Sex: 1960/62/F [facility] No PCC Admit/Reg Date: 05/22/[address]: PIERCE Johnson Location: PACU.EM/PACU.EM-11 PCP: Mike Nguyen Md Date of Service: 05/22/22 Order (s): XR hip RT 1V CPT Code: 89246 Report Number: [id number] Reason for Exam: s/p R ANNETTE XR [...] PAC; Geovany Martinez MD; Oracio Douglas PA [address] [place] [address], [address], [facility] 06/05/2022 16:33:25 Xr, Hip + Pelvis, Bilateral : [facility] [place] [facility] at [address] [address] Patient Name: LAURA HICKMAN Medical Record#: [id number] Address: [address] [place] [address] City/State/Zip: [place] [address]: Kate Young PAC Insurance: Medicare A&B /Age/Sex: 1960/62/F [facility] No PCC Admit/Reg Date: 06/06/[address]: PIERCE Johnson Location: [facility]/ PCP: Mike StaffMd Date of Service: 06/06/22 Order (s): XR hip pelvis BI min 3V CPT Code: 04003 Report Number: [id number] Reason for Exam: HIP PAIN Pain Frontal [...] Joy MD 06/08/221655 TD/TT: 06/08/22 165 Tech: [id number] cc: MARGUERITE; HELENA* Kate Young, PAC; Oracio Douglas PA [address] [place], [address], [facility] 06/12/2022 14:34:30 Procedures Surgical History Date Name Laterality Status Provider Name and Address Organization Details Recorded Time 2 TELEHEALTH VISIT completed Sophie Weathers MD [address] [facility], [place], [address], [facility] 04/03/2022 14:11:05 2 TELEHEALTH VISIT completed Patricia Amaro [facility] 03/06/2022 08:58:21 Imaging Results None recorded. 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 6200027955 2793989 T84.52XD [id number] HELEN JOHNSON SEM_HOSP ORTHOPEDI CS OUT PT [address] [facility] [place] [address] 03/07/2022 11:29:08 03/12/2022 07:42:34 Dehiscence of surgical wound 85998861 T81.30XA 2 weeks status post left hip [...] of total replacement of left hip joint 5669481855 215786 Z96.642 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 Pain of ri ght hip joint 8278656001 83026 M25.551 History of left hip replacement 3481654527 882379 Z96.642 Doing well status post I and D and head liner exchange with wound revision given postoperat parminder wound dehiscence . Most recent lab work reassuring . No issues with her incision. She is off antibiotic s. No reported fevers or chills or increasing pain. [id number] HELEN JOHNSON SEM_HOSP ORTHOPEDI CS OUT PT [address] [place] [address] 06/06/2022 10:23:14 06/07/2022 11:06:46 History of total replacement of right hip joint 8700723035 44922 Z96.641 Two weeks status post right anterior [...] recovery. Will follow-up in 6 weeks via nContact Surgical health. Health Concerns Section Related Observation LastModified by Organization Detai ls LastModified Time None Recorded Concern Status LastModified by Organization Details LastModified Time None Recorded Advance Directives Directive None Recorded Payers Insurance Date Sequence Insurance Name Policy Number Policy Gutiérrez Covered Member ID Gutiérrez Member ID Guarantor Name 07/22/2022 1 [place] B[place] [employer] Laura Hickman [id number] Laura Hickman 07/22/2022 2 [place] [facility] Laura Hickman [id number] Laura Hickman Notes Date Note Type Note [...] a left hip arthroplasty on 01/08/2022 in [place]. Since the surgery, she has been having [...] gauze with no drainage. Sophie Weathers MD [address] [place] [address], [address], [facility] 03/06/2022 14:31:51 2 text/html ROS as noted [...] postop exam with x-rays. HELEN JOHNSON [address] [place], [address], [facility] 03/07/2022 13:10:01 2 text/html The patient acknowledges [...] rash, pruritus, diarrhea. Sophie Weathers MD [address] [place], [address], [facility] 04/03/2022 14:14:52 2 text/html This is a 61-year-old woman who is presenting today with right hip pain. She is known to Dr. Martinez status post left hip surgical wound I and D and head liner exchange for persistent drainage and wound dehiscence on 02/19/2022, original left total hip surgery on 01/08/22 in [place]. She reports that her left hip is [...] in right hip replacement surgery. HELEN ZHU [address] [place] [address], [address], [facility] 05/09/2022 16:41:47 2 text/html Date of Procedure: [...] today for postop exam. HELEN JOHNSON [address] [place], [address], [facility] 06/06/2022 15:14:48 OBGyn Episode No OBEpisode recorded.
== END 2025-08-05 14:50 | disposition home or self-care (01) ==
LOC: HO.HOS 14:03
PROVIDERS: PCP Physician Assistant Medical; Visit Provider Physician Assistant
DX: Z96.651 Presence of right artificial knee joint (principal)
CPT/HCPCS: 99024

== ENCOUNTER → 2025-08-05 14:05 | Outpatient (BNV) | payer MEDICARE, MEDICAID, SELFPAY | PROVIDERS: Visit Provider Radiology Diagnostic Radiology | DX: M25.461 Effusion, right knee (principal) | CPT/HCPCS: 73562 ==